=== PATIENT | female | born 2000 | race Caucasian/White ===

== ENCOUNTER 2022-05-26 15:51 | Emergency (ER) | payer MEDICAID, SELFPAY ==
[2022-05-26] VITALS (19 sets, daily range): BP systolic 111–115; BP diastolic 74–83; PULSE 78–101; RESP 18; TEMP 36.5; O2SAT 95–100; BMI 29.5
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
--- NOTE | 2022-05-26 16:08 | CRLHL7_ITS ---
For Patients: As a result of the Century Cures Act, medical imaging exams and procedure reports are released immediately into your electronic medical record. You may view this report before your referring provider. If you have questions, please contact your health care provider. INDICATION: Difficulty breathing. TECHNIQUE: Chest 1 view. COMPARISON: None. FINDINGS: Cardiovascular and mediastinum: Heart size and vasculature are normal in caliber and appearance. Lungs and pleural spaces: Lungs are clear. No sign of infiltrate or mass. No sign of pleural effusion. No pneumothorax. Bones and soft tissues: Thoracic spine fusion hardware. IMPRESSION: No acute cardiopulmonary abnormality. Dictated by Dick Salmon MD @ 05/26/2022 6:03:48 PM (Electronically Signed)
[2022-05-26] MEDS: EPINEPHrine 0.3 MG PEN IM (16:17)
[2022-05-26] MEDS: dexAMETHasone 4 MG/ML VIAL 8 MG IV (16:36)
[2022-05-26] MEDS: 0.9 % SODIUM CHLORIDE 1000 ml 1,000 ML IV (16:36)
[2022-05-26] MEDS: diphenhydrAMINE 50 MG/ML inj 25 MG IVP (16:39)
[2022-05-26 17:05] LABS: Basophils Absolute Auto 0.05 K/uL (0.00-0.30); Basophils Percent Auto 0.5 % (0.0-3.0); Eosinophils Absolute Auto 0.29 K/uL (0.00-0.50); Eosinophils Percent Auto 2.9 % (0.0-7.0); Hematocrit 45.6 % (33.0-51.0); Hemoglobin* 15.2 gm/dL (12.0-16.0); Immature Granulocytes Abs Auto 0.01 K/uL (0.00-0.30); Lymphocytes Percent Auto 44.5 % (20-44); Mean Corpuscular HGB Conc 33 gm/dL (32-36); Mean Corpuscular Hemoglobin 30 pg (26-34); Mean Corpuscular Volume 91 fL (80-100); Monocytes Percent Auto 7.2 % (0.0-11.0); Neutrophils Absolute Auto 4.51 K/uL (1.7-7.0); Neutrophils Percent Auto 44.8 % (42.0-72.0); Platelet Count* 322 K/uL (140-440); White Blood Count* 10.07 K/uL (4.50-11.00)
[2022-05-26 17:18] LABS: Slide Review Reflex No
[2022-05-26 17:31] LABS: Albumin* 4.6 g/dL (3.3-5.0); Chloride* 104 mmol/L (96-114)
[2022-05-26 17:32] LABS: Sodium* 138 mmol/L (135-149)
[2022-05-26 17:34] LABS: Amylase* 87 U/L (18-89); Creatinine* 0.6 mg/dL (0.5-1.5); Estimated Glomerular Filt Rate 129 ml/min
[2022-05-26 17:35] LABS: Alanine Aminotransferase* 13 U/L (4-35); Alkaline Phosphatase* 99 U/L (40-150); Aspartate Amino Transferase* 23 U/L (12-35); Bilirubin Total* 0.6 mg/dL (0.1-1.5); Blood Urea Nitrogen* 9 mg/dL (5-24); Calcium* 9.5 mg/dL (8.4-10.6); Carbon Dioxide* 22 mmol/L (20-32); Glucose* 103 mg/dL (60-115); Lipase* 72 U/L (23-300); Total Protein* 7.8 g/dL (6.0-8.3)
[2022-05-26 17:38] LABS: C Reactive Protein* 1.1 mg/dL (0.5-1.0)
[2022-05-26 18:08] LABS: SARS PCR* Negative SARS-CoV-2 (Negative)
[2022-05-26 18:14] LABS: Appearance Urine Clear (Clear); Bilirubin Urine Negative (Negative); Blood Urine Negative (Negative); Color Urine Yellow (Yellow); Glucose Urine Negative (Negative); Ketones Urine Negative (Negative); Leukocyte Esterase Urine Trace (Negative); Nitrite Urine Negative (Negative); Protein Urine Negative (Negative); Specific Gravity Urine <= 1.005 (1.000-1.030); Urobilinogen Urine 0.2 (0.2-1.0)
[2022-05-26] MEDS: LORazepam 2 MG/ML inj 0.5 MG IVP (18:15)
[2022-05-26 18:26] LABS: RBC Urine 0-2 (0-2); Ur HCG Qualitative* Negative (Negative)
[2022-05-26] MEDS: POTASSIUM BICARB 25 MEQ EFFERVESCENT TAB 50 MEQ PO (20:44)
== END 2022-05-26 20:51 | disposition home or self-care (01) ==
PROVIDERS: Emergency Provider Family Medicine; PCP Student in an Organized Health Care Education/Training Program
DX: F41.9 Anxiety disorder, unspecified (principal); E87.6 Hypokalemia; T78.49XA Other allergy, initial encounter
CPT/HCPCS: 36415; 71045; 80053; 81003; 81015; 81025; 82150; 83690; 85025; 86140; 87635; 96372; 96374; 96375; 99285; 99291; A9270; J0171; J1100; J1200; J2060; J7030

== ENCOUNTER 2022-10-31 01:48 | Emergency (ER) | payer OTHER, SELFPAY ==
[2022-10-31 01:51] VITALS: BP 130/82; PULSE 88; RESP 20; TEMP 36.6; O2SAT 98; BMI 28.9
--- NOTE | 2022-10-31 01:59 | CRLHL7_ITS ---
For Patients: As a result of the Century Cures Act, medical imaging exams and procedure reports are released immediately into your electronic medical record. You may view this report before your referring provider. If you have questions, please contact your health care provider. INDICATION: Head injury TECHNIQUE: CT head without contrast. COMPARISON: None FINDINGS: CSF spaces: Within normal limits for age. Brain parenchyma: The velásquez-white differentiation is normal. No sign of mass, hemorrhage, or midline shift. Skull base and calvarium: The visualized paranasal sinuses and mastoid air cells demonstrate no acute or significant findings. The visualized orbits are grossly unremarkable. No skull fractures. IMPRESSION: Unremarkable noncontrast head CT. Please note that all CT scans at this facility use dose modulation, iterative reconstruction, and/or weight-based dosing when appropriate to reduce radiation dose to as low as reasonably achievable. Dictated by Nazia Ya MD @ 10/31/2022 3:48:17 AM (Electronically Signed)
--- NOTE | 2022-10-31 02:00 | CRLHL7_ITS ---
For Patients: As a result of the Century Cures Act, medical imaging exams and procedure reports are released immediately into your electronic medical record. You may view this report before your referring provider. If you have questions, please contact your health care provider. INDICATION: Head trauma TECHNIQUE: CT cervical spine without contrast. COMPARISON: None FINDINGS: Vertebral alignment: Alignment is normal. Vertebrae: There are no fractures or suspicious bony lesions. Partially visualized thoracic spine internal fixation hardware. Discs and facet joints: Unremarkable. Extraspinal findings: Paraspinous soft tissues are unremarkable. IMPRESSION: No acute fracture or subluxation. Please note that all CT scans at this facility use dose modulation, iterative reconstruction, and/or weight-based dosing when appropriate to reduce radiation dose to as low as reasonably achievable. Dictated by Nazia Ya MD @ 10/31/2022 3:50:26 AM (Electronically Signed)
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
[2022-10-31 02:24] VITALS: PULSE 76; RESP 18; O2SAT 96
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
[2022-10-31 03:06] VITALS: BP 129/72; PULSE 96; RESP 18; O2SAT 96
== END 2022-10-31 04:00 | disposition home or self-care (01) ==
PROVIDERS: Emergency Provider Internal Medicine; PCP Student in an Organized Health Care Education/Training Program
DX: S09.90XA Unspecified injury of head, initial encounter (principal); W20.8XXA Other cause of strike by thrown, projected or falling object, initial encounter; Y99.0 Civilian activity done for income or pay
CPT/HCPCS: 70450; 72125; 99283; 99284

== ENCOUNTER 2022-12-13 13:39 | Emergency (ER) | payer OTHER, MEDICAID, SELFPAY ==
[2022-12-13 13:44] VITALS: BP 117/73; PULSE 86; RESP 15; TEMP 36.7; O2SAT 99; BMI 26.6
--- NOTE | 2022-12-13 14:42 | CRLHL7_ITS ---
For Patients: As a result of the Century Cures Act, medical imaging exams and procedure reports are released immediately into your electronic medical record. You may view this report before your referring provider. If you have questions, please contact your health care provider. Indication: Post concussive symptoms Technique: Volumetric multidetector CT images of the head were obtained without the administration of low osmolar intravenous contrast. Comparison: CT head October 31, 2022 Findings: There is no intra-axial or extra-axial fluid collection. There is no mass effect or midline shift. The ventricles and sulci are normal in size and position for age. The brain parenchyma is grossly preserved in attenuation and leong-white differentiation. The orbits and their contents are grossly within normal limits. The bony calvarium is grossly intact. The paranasal sinuses are clear. The mastoid air cells are well aerated. Impression: No acute intracranial abnormality. Please note that all CT scans at this facility use dose modulation, iterative reconstruction, and/or weight-based dosing when appropriate to reduce radiation dose to as low as reasonably achievable. Dictated by James Denney MD @ 12/13/2022 3:57:55 PM (Electronically Signed)
--- NOTE | 2022-12-13 14:44 | ED.HEATRA ---
HPI - Head Injury General Chief complaint: Unspecified Complaint, Adult Stated complaint: Shaking Weakness Post Concussion 10/30 Time Seen by Provider: 12/13/22 14:34 History of Present Illness HPI Narrative: Patient is a 22-year-old woman who I saw 6 weeks ago after she had her head on a strobe light at work. CT of the head was unremarkable and so scanner neck and chest x-ray all were negative. I offered reassurance for likely concussion although the patient did not appear to lose consciousness. I did recommend outpatient follow-up. Patient was given standard instructions following her assessment. Patient since that time has been having difficulty concentrating, difficulty focusing with her eyes and mild chronic headache. Patient has been taking Tylenol Motrin as needed. Primary care follow-up as been attended. She does have a neurology appointment 16 days. Patient is concerned that her symptoms seem to be worsening and is in for repeat evaluation. Pain is mild no neck her chest pain. No seizure activity. No fevers no chills no nausea no vomiting. No other focal neurologic complaints. Related Data Home Medications Medication Instructions Recorded Confirmed albuterol sulfate .ROUTE 05/26/22 clonazepam 0.5 mg tablet mg 05/26/22 levothyroxine 50 mcg tablet mcg 05/26/22 lithium carbonate 300 mg capsule mg 05/26/22 sumatriptan succinate 100 mg tablet mg PO 05/26/22 Allergies Allergy/AdvReac Type Severity Reaction Status Date / Time No Known Drug Allergies Allergy Verified 05/26/22 15:59 Review of Systems Status of ROS: Reports: 10 or more systems reviewed and unremarkable except as noted in History and below [facility] Medical History (Updated 12/13/22 @ 16:02 by Clinton Hi MD) Head injury ?S09.90XA - Unspecified injury of head, initial encounter (ICD-10) Social History Smoking Status: Current every day smoker Do you use any of these nicotine containing products: None and Vaping Products Second hand tobacco smoke exposure: No How often do you have a drink containing alcohol: 2-4 times a month AUDIT-C Alcohol total score: 2 Non-prescribed substance use: denies use service: No Exam Narrative: Exam Narrative: EXAM GENERAL: Patient appears comfortable and well. EYES: No scleral icterus. ENT: Tympanic membranes and oropharynx normal. THYROID: no thyroid nodules or thyromegaly. LYMPH: No supraclavicular or cervical lymphadenopathy. SKIN: Visible skin seen during exam normal or with benign process only. EXT: No dependent lower extremity pedal edema. HEART: Regular rate and rhythm with no murmurs, rubs, or gallops. LUNGS: Clear to auscultation bilaterally with no crackles or wheezes. ABD: Soft, non tender, non distended. PSYCH: Good eye contact, speech is not pressured. Neurologic cranial nerves 2-12 grossly intact no focal defects. Const: Vital Signs, click to edit/add: Vital Signs - 24 hr 12/13/22 13:44 Temperature 98.1 F Pulse Rate [Pulse Oximeter] 86 Respiratory Rate 15 Blood Pressure [Ri ght Upper Arm] 117/73 Pulse Oximetry 99 Oxygen Delivery Me thod Room Air Course Course Hospital Course: Patient seen examined. CT of the head ordered. CBC basic metabolic panel TSH also ordered. Vital Signs Vital signs: Initial Vital Signs Temperature 98.1 F 12/13/22 13:44 Temperature Source Temporal Artery Scan 12/13/22 13:44 Pulse Rate 86 12/13/22 13:44 Respiratory Rate 15 12/13/22 13:44 Blood Pressure 117/73 12/13/22 13:44 Blood Pressure Mean 87 12/13/22 13:44 Pulse Oximetry 99 12/13/22 13:44 Oxygen Delivery Method Room Air 12/13/22 13:44 Vital Signs Temperature 98.1 F 12/13/22 13:44 Pulse Rate 86 12/13/22 13:44 Respiratory Rate 15 12/13/22 13:44 Blood Pressure 117/73 12/13/22 13:44 Pulse Oximetry 99 12/13/22 13:44 Oxygen Delivery Method Room Air 12/13/22 13:44 Temperature 98.1 F 12/13/22 13:44 Pulse Rate 86 12/13/22 13:44 Respiratory Rate 15 12/13/22 13:44 Blood Pressure 117/73 12/13/22 13:44 Pulse Oximetry 99 12/13/22 13:44 Oxygen Delivery Method Room Air 12/13/22 13:44 MDM - Head Injury MDM Narrative Medical decision making narrative: Patient is a 22-year-old woman who presents approximately 6 weeks after head injury consistent with concussion. She is having continued difficulties with post concussive type symptoms. Her exam today is normal on my assessment her vital signs are stable. I did order repeat CT scan which was normal. CBC basic metabolic panel unremarkable TSH is pending. She does have outpatient follow-up with Neurology which I encouraged her to keep. She would likely benefit after seeing Neurology from an MRI as well. Otherwise reassurance offered patient will follow-up with her primary physician and neurologist as scheduled. Differential Diagnosis Differential diagnosis: Likely concussion without loss of consciousness, epidural hematoma, closed head injury, subarachnoid hematoma, postconcussion syndrome, subdural hematoma and concussion with loss of consciousness Lab Data Labs: Lab Results 12/13/22 Range/Units 14:56 WBC 9.99 (4.50-11.00) K/uL RBC 4.89 (4.00-5.20) m/uL Hgb 14.8 (12.0-16.0) gm/dL Hct 45.6 (33.0-51.0) % MCV 93 (80-100) fL MCH 30 (26-34) pg MCHC 33 (32-36) gm/dL RDW Coeff of Al 12.6 (11.5-15.5) % Plt Count 319 (140-440) K/uL Neut % (Auto) 48.1 (42.0-72.0) % Lymph % (Auto) 38.2 (20-44) % Stokes % (Auto) 8.1 (0.0-11.0) % Eos % (Auto) 4.1 (0.0-7.0) % Baso % (Auto) 0.6 (0.0-3.0) % Neut # (Auto) 4.80 (1.7-7.0) K/uL Lymph # (Auto) 3.82 H (0.90-2.90) K/uL Stokes # (Auto) 0.80 (0.00-0.90) K/UL Eos # (Auto) 0.41 (0.00-0.50) K/uL Baso # (Auto) 0.06 (0.00-0.30) K/uL Sodium 138 (135-149) mmol/L Potassium 3.9 (3.6-5.1) mmol/L Chloride 106 (96-114) mmol/L Carbon Dioxide 23 (20-32) mmol/L BUN 11 (5-24) mg/dL Creatinine 0.6 (0.5-1.5) mg/dL Estimated Creat Clear 152.40 Estimated GFR 129 ml/min Glucose 82 (60-115) mg/dL Calcium 9.1 (8.4-10.6) mg/dL Discharge Plan Discharge Clinical Impression: Post concussion syndrome Patient Disposition: Home, Self-Care Condition: Stable Instructions: Post Concussion Syndrome (ED) Additional Instructions: Continue current management. Report any change in symptoms. Follow-up with neurology as scheduled Activity Level: No Restrictions Discharge Diet: Regular Prescriptions: No Action albuterol sulfate .ROUTE sumatriptan succinate 100 mg tablet PO clonazepam 0.5 mg tablet lithium carbonate 300 mg capsule Patient Comments: TAKE 1 CAPSULE BY MOUTH AT BEDTIME FOR 3 DAYS. THEN INCREASE TO 2 CAPSULES BY MOUTH AT BEDTIME levothyroxine 50 mcg tablet Follow Up/Referrals: Vane Black PA-C [Primary Care Provider] - Stand Alone Forms: Errplane Info Instructions
[2022-12-13 15:21] LABS: Basophils Absolute Auto 0.06 K/uL (0.00-0.30); Basophils Percent Auto 0.6 % (0.0-3.0); Eosinophils Absolute Auto 0.41 K/uL (0.00-0.50); Eosinophils Percent Auto 4.1 % (0.0-7.0); Hematocrit 45.6 % (33.0-51.0); Hemoglobin* 14.8 gm/dL (12.0-16.0); Immature Granulocytes Abs Auto 0.09 K/uL (0.00-0.30); Immature Granulocytes Pct Auto 0.9 %; Lymphocytes Absolute Auto 3.82 K/uL (0.90-2.90); Lymphocytes Percent Auto 38.2 % (20-44); Mean Corpuscular HGB Conc 33 gm/dL (32-36); Mean Corpuscular Hemoglobin 30 pg (26-34); Mean Corpuscular Volume 93 fL (80-100); Monocytes Percent Auto 8.1 % (0.0-11.0); Neutrophils Percent Auto 48.1 % (42.0-72.0); Platelet Count* 319 K/uL (140-440); RDW Coefficient of Variation % 12.6 % (11.5-15.5); Red Blood Count 4.89 m/uL (4.00-5.20); White Blood Count* 9.99 K/uL (4.50-11.00)
[2022-12-13 15:24] LABS: Slide Review Reflex No
[2022-12-13 15:49] LABS: Chloride* 106 mmol/L (96-114); Potassium* 3.9 mmol/L (3.6-5.1); Sodium* 138 mmol/L (135-149)
[2022-12-13 15:52] LABS: Blood Urea Nitrogen* 11 mg/dL (5-24); Calcium* 9.1 mg/dL (8.4-10.6); Carbon Dioxide* 23 mmol/L (20-32); Creatinine* 0.6 mg/dL (0.5-1.5); Estimated Glomerular Filt Rate 129 ml/min; Glucose* 82 mg/dL (60-115)
== END 2022-12-13 16:10 | disposition home or self-care (01) ==
PROVIDERS: Emergency Provider Internal Medicine; PCP Student in an Organized Health Care Education/Training Program
DX: R51.9 Headache, unspecified (principal); F07.81 Postconcussional syndrome
CPT/HCPCS: 36415; 70450; 80048; 84443; 85025; 99283; 99284

== ENCOUNTER 2022-12-18 11:22 | Emergency (ER) | payer MEDICAID, SELFPAY ==
[2022-12-18] VITALS (17 sets, daily range): BP systolic 92–127; BP diastolic 62–91; PULSE 65–94; RESP 20; TEMP 36.6; O2SAT 96–100; BMI 30.4
--- NOTE | 2022-12-18 12:00 | CRLHL7_ITS ---
For Patients: As a result of the Century Cures Act, medical imaging exams and procedure reports are released immediately into your electronic medical record. You may view this report before your referring provider. If you have questions, please contact your health care provider. INDICATION: Left lower quadrant pain, evaluate for ectopic. LMP unknown. Beta hCG is reportedly negative. COMPARISON: None. TECHNIQUE: 2D velásquez scale and color Doppler images were acquired of the pelvis using a transvaginal approach. FINDINGS: Sonographic images demonstrate a normal size and smooth outer contour of the uterus. The uterus is anteverted in position. The uterus measures 6.2 cm in length by 3.5 cm in AP diameter by 5.2 cm in transverse dimension. The myometrium has uniform echotexture. The endometrial lining measures 5 mm in composite thickness. IUD appears appropriately positioned. No intrauterine gestational sac identified. The right ovary measures 4.3 x 2.2 x 3.3 cm and the left ovary measures 4.1 x 1.9 x 2.8 cm. Blood flow is seen within both ovaries. There is a 1.9 x 1.8 x 2.1 cm thick-walled cyst in the right ovary which likely represents a corpus luteum. There are ill-defined vascular soft tissue structures in both adnexa measuring 2.6 x 0.8 x 1.0 cm on the right and 2.4 x 0.9 x 1.2 cm on the left. Trace free fluid in the cul-de-sac. IMPRESSION: 1. IUD appears appropriately positioned. No intrauterine gestational sac identified. 2. Probable corpus luteum in the right ovary. 3. Ill-defined vascular soft tissue structures in both adnexa likely related to normal adnexal/periuterine vascularity. Ectopic considered unlikely given negative beta HCG. Dictated by Jonna Fontenot MD @ 12/18/2022 1:57:17 PM (Electronically Signed)
[2022-12-18] MEDS: fentaNYL 100 MCG/2 ML inj 50 MCG IVP (12:28)
[2022-12-18] MEDS: 0.9 % SODIUM CHLORIDE 1000 ml 1,000 ML IV (12:28)
[2022-12-18] MEDS: ONDANSETRON 2 MG/ML inj 4 MG IVP (12:28)
[2022-12-18 12:38] LABS: Basophils Absolute Auto 0.03 K/uL (0.00-0.30); Basophils Percent Auto 0.3 % (0.0-3.0); Eosinophils Absolute Auto 0.37 K/uL (0.00-0.50); Eosinophils Percent Auto 4.1 % (0.0-7.0); Hemoglobin* 14.9 gm/dL (12.0-16.0); Immature Granulocytes Abs Auto 0.01 K/uL (0.00-0.30); Immature Granulocytes Pct Auto 0.1 %; Lymphocytes Absolute Auto 3.03 K/uL (0.90-2.90); Lymphocytes Percent Auto 33.7 % (20-44); Mean Corpuscular HGB Conc 33 gm/dL (32-36); Mean Corpuscular Hemoglobin 31 pg (26-34); Mean Corpuscular Volume 92 fL (80-100); Monocytes Percent Auto 8.7 % (0.0-11.0); Neutrophils Absolute Auto 4.76 K/uL (1.7-7.0); Neutrophils Percent Auto 53.1 % (42.0-72.0); Platelet Count* 295 K/uL (140-440); RDW Coefficient of Variation % 12.5 % (11.5-15.5); Red Blood Count 4.89 m/uL (4.00-5.20); White Blood Count* 8.98 K/uL (4.50-11.00)
[2022-12-18 12:40] LABS: Slide Review Reflex No
[2022-12-18 12:48] LABS: Appearance Urine Slightly Cloudy (Clear); Bilirubin Urine Negative (Negative); Blood Urine Trace-intact (Negative); Color Urine Yellow (Yellow); Glucose Urine Negative (Negative); Ketones Urine Negative (Negative); Leukocyte Esterase Urine Trace (Negative); Nitrite Urine Negative (Negative); Protein Urine Negative (Negative); Specific Gravity Urine 1.015 (1.000-1.030); Urobilinogen Urine 0.2 (0.2-1.0); pH Urine 7.5 (5.0-8.5)
--- NOTE | 2022-12-18 12:50 | ED.ABDPAIN ---
HPI - Abdominal Pain General Chief Complaint: Abdominal Pain Stated Complaint: Possible ectopic Time Seen by Provider: 12/18/22 11:45 History of Present Illness HPI narrative: gr 1 p 0 with concerns of spotting and lower abd cramping and pain. cramps for the last week. spotting started a week ago. had 2 positive tests at home. has an iud and took antibiotics on 11/27/22. believes she may have an ectopic . had awakened with nausea and left sided shoulder pain. called [facility] and was told to come here 22-year-old young woman here with concern of potential ectopic . She is with to lightly positive home tests this last week. She probably has some pain beginning maybe 10 days ago. Underlying history of migraines. Has tried some Zofran for nausea. Has an IUD and notes that the strings were cut too short. She has some lower abdominal cramping in escalating pain with these cramps over the last week or so. Spotting during this time as well. Started to have some left-sided shoulder pain and called to try to be seen by an Ob but with the complaint of left-sided shoulder pain in addition to all of the above, recommended to the emergency department for further evaluation with concern of ectopic . Did take antibiotics a couple of weeks ago apparently for wisdom teeth. Sounds like amoxicillin. Still pending extraction. Related Data Home Medications Medication Instructions Recorded Confirmed albuterol sulfate .ROUTE 05/26/22 clonazepam 0.5 mg tablet mg 05/26/22 levothyroxine 50 mcg tablet mcg 05/26/22 lithium carbonate 300 mg capsule mg 05/26/22 sumatriptan succinate 100 mg tablet mg PO 05/26/22 Previous Rx's Medication Instructions Recorded cephalexin 500 mg capsule 500 mg PO TID 6 days #18 caps 12/18/22 fluconazole 150 mg tablet 150 mg PO DAILY #1 tab 12/18/22 Allergies Allergy/AdvReac Type Severity Reaction Status Date / Time No Known Drug Allergies Allergy Verified 05/26/22 15:59 Review of Systems Status of ROS Reports: 6 or more systems reviewed and unremarkable except as noted in History and below [facility] Medical History Head injury ?S09.90XA - Unspecified injury of head, initial encounter (ICD-10) Social History Smoking Status: Current every day smoker Do you use any of these nicotine containing products: None and Vaping Products Second hand tobacco smoke exposure: No How often do you have a drink containing alcohol: 2-4 times a month AUDIT-C Alcohol total score: 2 Non-prescribed substance use: denies use service: No Exam Narrative: Exam Narrative: Pleasant. Brow furrowed in discomfort and mild anxiety I think. Hair is dyed darker red? Breathing easily. Lungs are clear. Heart with elevated rate in a regular rhythm. Hand at left low abdomen. Tender in left low abdomen/adnexal area. No peritoneal signs. Extremities are well perfused. Pelvic exam was not done. Reports residual soreness in the left periscapular musculature to palpation. Has some left flank area tenderness to percussion. Const: Vital Signs, click to edit/add: Vital Signs - 24 hr 12/18/22 11:28 12/18/22 11:41 12/18/22 11:45 Temperature 97.9 F Pulse Rate 94 84 Pulse Rate [Pulse Oximeter] 93 Respiratory Rate 20 Blood Pressure Blood Pressure [Le ft Forearm] 127/91 H Pulse Oximetry 97 97 98 Oxygen Delivery Me od Room Air 12/18/22 12:00 12/18/22 12:01 12/18/22 13:05 Temperature Pulse Rate 82 79 67 Pulse Rate [Pulse Oximeter] Respiratory Rate Blood Pressure 121/82 108/70 Blood Pressure [Le ft Forearm] Pulse Oximetry 97 97 96 Oxygen Delivery Me od 12/18/22 13:06 12/18/22 13:15 12/18/22 13:30 Temperature Pulse Rate 67 69 66 Pulse Rate [Pulse Oximeter] Respiratory Rate Blood Pressure Blood Pressure [Le ft Forearm] Pulse Oximetry 96 97 98 Oxygen Delivery Me thod 12/18/22 13:31 12/18/22 13:45 12/18/22 14:00 Temperature Pulse Rate 68 67 69 Pulse Rate [Pulse Oximeter] Respiratory Rate Blood Pressure 105/72 Blood Pressure [Le ft Forearm] Pulse Oximetry 98 99 97 Oxygen Delivery Id thod 12/18/22 14:01 12/18/22 14:15 12/18/22 14:30 Temperature Pulse Rate 71 67 65 Pulse Rate [Pulse Oximeter] Respiratory Rate Blood Pressure 92/62 Blood Pressure [Le ft Forearm] Pulse Oximetry 97 98 100 Oxygen Delivery Me thod 12/18/22 14:32 12/18/22 14:45 Temperature Pulse Rate 68 67 Pulse Rate [Pulse Oximeter] Respiratory Rate Blood Pressure 98/65 Blood Pressure [Le ft Forearm] Pulse Oximetry 100 100 Oxygen Delivery Me thod Documenting provider has reviewed patient's vital signs: yes Course Vital Signs Vital signs: Initial Vital Signs Temperature 97.9 F 12/18/22 11:28 Temperature Source Temporal Artery Scan 12/18/22 11:28 Pulse Rate 93 12/18/22 11:28 Pulse Rhythm Regular 12/18/22 11:28 Respiratory Rate 20 12/18/22 11:28 Blood Pressure 127/91 H 12/18/22 11:28 Blood Pressure Mean 103 12/18/22 11:28 Blood Pressure Position Supine 12/18/22 11:28 Pulse Oximetry 97 12/18/22 11:28 Oxygen Delivery Method Room Air 12/18/22 11:28 Vital Signs Temperature 97.9 F 12/18/22 11:28 Pulse Rate 93 12/18/22 11:28 Respiratory Rate 20 12/18/22 11:28 Blood Pressure 127/91 H 12/18/22 11:28 Pulse Oximetry 97 12/18/22 11:28 Oxygen Delivery Method Room Air 12/18/22 11:28 Temperature 97.9 F 12/18/22 11:28 Pulse Rate 67 12/18/22 14:45 Respiratory Rate 20 12/18/22 11:28 Blood Pressure 98/65 12/18/22 14:32 Pulse Oximetry 100 12/18/22 14:45 Oxygen Delivery Method Room Air 12/18/22 11:28 MDM - Abdominal Pain MDM Narrative Medical decision making narrative: Certainly there could be migrated IUD. Need to evaluate for ectopic . Could be ovarian cyst. Urinary tract infection. Nephrolithiasis with ureteral stone and colic. Diverticulitis in differential as well. Constipation. Later conversation reveals history of recurrent urinary tract infections that have expanded to pyelonephritis per her report. Unclear cause as she describes it. Further that typically needs fluconazole if receives antibiotics. Think we do need to verify 1st but will also collect labs for other possibilities. IV established. For apparent significant pain is given initial dose of fentanyl and Zofran. Normal saline IV fluids. Have ordered for pelvic ultrasound. Discussed with the hearing therapist who noted no evidence of and IUD in proper location. Radiology over-read IMPRESSION: 1. IUD appears appropriately positioned. No intrauterine gestational sac identified. 2. Probable corpus luteum in the right ovary. 3. Ill-defined vascular soft tissue structures in both adnexa likely related to normal adnexal/periuterine vascularity. Ectopic considered unlikely given negative beta HCG. Findings are consistent with laboratory evaluation which is overall reassuring and very low quantitative hCG. Findings though suggest potential urinary tract infection. Again Lary denies dysuria frequency urgency however location of pain is not inconsistent with cystitis. Overall improved in ER. See patient discharge plan. Medical Records Attestation: I reviewed the patient's medical records. Lab Data Attestation: I reviewed the patient's lab results. Labs: Lab Results 12/18/22 Range/Units 12:25 WBC 8.98 (4.50-11.00) K/uL RBC 4.89 (4.00-5.20) m/uL Hgb 14.9 (12.0-16.0) gm/dL Hct 45.0 (33.0-51.0) % MCV 92 (80-100) fL MCH 31 (26-34) pg MCHC 33 (32-36) gm/dL RDW Coeff of Al 12.5 (11.5-15.5) % Plt Count 295 (140-440) K/uL Neut % (Auto) 53.1 (42.0-72.0) % Lymph % (Auto) 33.7 (20-44) % Alger % (Auto) 8.7 (0.0-11.0) % Eos % (Auto) 4.1 (0.0-7.0) % Baso % (Auto) 0.3 (0.0-3.0) % Neut # (Auto) 4.76 (1.7-7.0) K/uL Lymph # (Auto) 3.03 H (0.90-2.90) K/uL [place] # (Auto) 0.80 (0.00-0.90) K/UL Eos # (Auto) 0.37 (0.00-0.50) K/uL Baso # (Auto) 0.03 (0.00-0.30) K/uL Sodium 140 (135-149) mmol/L Potassium 3.7 (3.6-5.1) mmol/L Chloride 107 (96-114) mmol/L Carbon Dioxide 27 (20-32) mmol/L BUN 9 (5-24) mg/dL Creatinine 0.6 (0.5-1.5) mg/dL Estimated Creat Clear 147.10 Estimated GFR 129 ml/min Glucose 82 (60-115) mg/dL Calcium 9.1 (8.4-10.6) mg/dL HCG, Quant < 2.39 mIU/mL Urine Color Yellow (Yellow) Urine Appearance Slightly Cloudy A (Clear) Urine pH 7.5 (5.0-8.5) Ur Specific [place] 1.015 (1.000-1.030) Urine Protein Negative (Negative) Urine Glucose (UA) Negative (Negative) Urine Ketones Negative (Negative) Urine Blood Trace-intact A (Negative) Urine Nitrite Negative (Negative) Urine Bilirubin Negative (Negative) Urine Urobilinogen 0.2 (0.2-1.0) Ur Leukocyte Esterase Trace A (Negative) Urine RBC 2-5 A (0-2) Urine WBC 5-10 A (0-5) Ur Squamous Epith Cells Few (None-Few) Urine Bacteria Few A (None) SARS-CoV-2 (PCR) Negative SARS-CoV-2 (Negative) Discharge Plan Discharge Clinical Impression: Pelvic pain, Vaginal spotting, Cystitis Patient Disposition: Home w/ Parent or Adult Condition: Improved Additional Instructions: Focus on unsugared hydration = water. I would follow-up in the next couple of weeks with OBGYN or your primary care provider to address this spotting if this is continuing. An antibiotic is being sent to your pharmacy along with fluconazole if you need that over the weekend. Urine culture will be pending as well. Return for uncontrolled pain, repeated vomiting, associated fever. Prescriptions: New cephalexin 500 mg capsule 500 mg PO TID 6 Days Qty: 18 0RF fluconazole 150 mg tablet 150 mg PO DAILY Qty: 1 1RF No Action albuterol sulfate .ROUTE sumatriptan succinate 100 mg tablet PO clonazepam 0.5 mg tablet lithium carbonate 300 mg capsule Patient Comments: TAKE 1 CAPSULE BY MOUTH AT BEDTIME FOR 3 DAYS. THEN INCREASE TO 2 CAPSULES BY MOUTH AT BEDTIME levothyroxine 50 mcg tablet Follow Up/Referrals: Vane Black PA-C [Primary Care Provider] - Stand Alone Forms: Mil[employer] Info Instructions
[2022-12-18 12:53] LABS: Chloride* 107 mmol/L (96-114); Potassium* 3.7 mmol/L (3.6-5.1); Sodium* 140 mmol/L (135-149)
[2022-12-18 12:56] LABS: Blood Urea Nitrogen* 9 mg/dL (5-24); Carbon Dioxide* 27 mmol/L (20-32); Creatinine* 0.6 mg/dL (0.5-1.5); Estimated Glomerular Filt Rate 129 ml/min
[2022-12-18 12:57] LABS: Calcium* 9.1 mg/dL (8.4-10.6); Glucose* 82 mg/dL (60-115)
[2022-12-18 13:06] LABS: Bacteria Urine Few; Squamous Epithelial Cell Urine Few (None-Few)
[2022-12-18 13:32] LABS: HCG Quantitative* < 2.39 mIU/mL
[2022-12-18 13:35] LABS: SARS PCR* Negative SARS-CoV-2 (Negative)
== END 2022-12-18 14:59 | disposition home or self-care (01) ==
PROVIDERS: Emergency Provider Family Medicine; PCP Student in an Organized Health Care Education/Training Program
DX: R10.2 Pelvic and perineal pain (principal); N93.9 Abnormal uterine and vaginal bleeding, unspecified; N30.90 Cystitis, unspecified without hematuria
CPT/HCPCS: 36415; 76817; 80048; 81001; 84702; 85025; 87086; 87635; 96374; 96375; 99284; J2405; J3010; J7030

== ENCOUNTER 2023-03-27 19:54 | Emergency (ER) | payer MEDICAID, SELFPAY ==
[2023-03-27 20:14] VITALS: BP 117/83; PULSE 82; RESP 16; TEMP 37.2; O2SAT 96; BMI 29.8
[2023-03-27 21:20] LABS: Appearance Urine Slightly Cloudy (Clear); Bilirubin Urine Negative (Negative); Blood Urine Negative (Negative); Color Urine Yellow (Yellow); Glucose Urine Negative (Negative); Ketones Urine Negative (Negative); Leukocyte Esterase Urine Negative (Negative); Nitrite Urine Negative (Negative); Protein Urine Negative (Negative); Specific Gravity Urine 1.025 (1.000-1.030); Urobilinogen Urine 0.2 (0.2-1.0)
[2023-03-27 21:34] LABS: RBC Urine 0-2 (0-2); WBC Urine 0-2 (0-5)
[2023-03-27 22:08] VITALS: BP 128/91; PULSE 71; RESP 18; O2SAT 95
--- NOTE | 2023-03-27 23:05 | CRLHL7_ITS ---
For Patients: As a result of the Cures Act, medical imaging exams and procedure reports are released immediately into your electronic medical record. You may view this report before your referring provider. If you have questions, please contact your health care provider. INDICATION: Right upper quadrant pain TECHNIQUE: CT abdomen and pelvis acquired with 93 cc Isovue 370 IV contrast. COMPARISON: None FINDINGS: Lower chest: Unremarkable. Liver: Unremarkable. Spleen: Unremarkable. Pancreas: Unremarkable. Gallbladder and bile ducts: Unremarkable. Adrenal glands: Unremarkable. Kidneys: Multifocal scarring on the left kidney. GI tract: Unremarkable. Appendix is normal. Vascular structures: Unremarkable. Lymph nodes: Unremarkable. Miscellaneous: Unremarkable. No free air or significant free fluid. Pelvic Organs: IUD in the uterus. Bones: Internal fixation hardware spanning the T7-L1 levels. IMPRESSION: No acute intra-abdominal process identified. Scarring of the left kidney. IUD in the uterus. Internal fixation hardware in the thoracolumbar spine. Please note that all CT scans at this facility use dose modulation, iterative reconstruction, and/or weight-based dosing when appropriate to reduce radiation dose to as low as reasonably achievable. Dictated by Nazia Ya MD @ 03/28/2023 1:10:51 AM (Electronically Signed)
[2023-03-27 23:18] LABS: Ur HCG Qualitative* Negative (Negative)
[2023-03-27] MEDS: ONDANSETRON 2 MG/ML inj 4 MG IVP (23:20)
[2023-03-27] MEDS: MORPHINE 4 MG/ML INJ IVP (23:20)
[2023-03-27 23:25] LABS: Basophils Absolute Auto 0.05 K/uL (0.00-0.30); Basophils Percent Auto 0.5 % (0.0-3.0); Eosinophils Absolute Auto 0.23 K/uL (0.00-0.50); Eosinophils Percent Auto 2.2 % (0.0-7.0); Hematocrit 46.4 % (33.0-51.0); Hemoglobin* 15.4 gm/dL (12.0-16.0); Immature Granulocytes Abs Auto 0.02 K/uL (0.00-0.30); Immature Granulocytes Pct Auto 0.2 %; Lymphocytes Absolute Auto 4.07 K/uL (0.90-2.90); Lymphocytes Percent Auto 38.7 % (20-44); Mean Corpuscular HGB Conc 33 gm/dL (32-36); Mean Corpuscular Hemoglobin 30 pg (26-34); Mean Corpuscular Volume 90 fL (80-100); Monocytes Percent Auto 9.1 % (0.0-11.0); Neutrophils Absolute Auto 5.19 K/uL (1.7-7.0); Neutrophils Percent Auto 49.3 % (42.0-72.0); Platelet Count* 271 K/uL (140-440); RDW Coefficient of Variation % 12.4 % (11.5-15.5); Red Blood Count 5.14 m/uL (4.00-5.20); White Blood Count* 10.52 K/uL (4.50-11.00)
[2023-03-27 23:26] VITALS: PULSE 56; O2SAT 98
[2023-03-27 23:26] LABS: Slide Review Reflex No
[2023-03-27 23:30] VITALS: PULSE 58; O2SAT 100
[2023-03-27 23:32] VITALS: BP 121/85; PULSE 61; O2SAT 100
[2023-03-27 23:36] LABS: Albumin* 4.2 g/dL (3.3-5.0); Chloride* 105 mmol/L (96-114)
[2023-03-27 23:37] LABS: Potassium* 3.6 mmol/L (3.6-5.1); Sodium* 139 mmol/L (135-149)
[2023-03-27 23:39] LABS: Alkaline Phosphatase* 58 U/L (40-150); Aspartate Amino Transferase* 22 U/L (12-35); Bilirubin Total* 0.4 mg/dL (0.1-1.5); Blood Urea Nitrogen* 11 mg/dL (5-24); Carbon Dioxide* 24 mmol/L (20-32); Creatinine* 0.6 mg/dL (0.5-1.5); Est. Creatinine Clearance* 141.81; Estimated Glomerular Filt Rate 129 ml/min; Glucose* 94 mg/dL (60-115); Lipase* 58 U/L (23-300); Total Protein* 7.4 g/dL (6.0-8.3)
[2023-03-27 23:40] LABS: Alanine Aminotransferase* 17 U/L (4-35)
--- NOTE | 2023-03-27 23:40 | ED.ABDPAIN ---
HPI - Abdominal Pain General Date Seen: 03/27/23 Chief Complaint: Abdominal Pain Stated Complaint: Severe abdominal pain Time Seen by Provider: 03/27/23 22:43 Source: patient Mode of arrival: ambulatory Limitations: no limitations History of Present Illness HPI narrative: Patient is a 22-year-old female with no pertinent ago mother history of present was brought in for abdominal pain patient says the pain started about 4 days ago. She was intermittently but has been gradually getting more consistent now she says with a past 2 or 3 hours it has been nonstop. She has had some nausea but no vomiting. Is mostly upper abdomen worsening right upper quadrant. Says it gets worse whenever she eats. Nothing seems to make it better. Has had subjective fevers but has not checked her temperature. Has not had any vomiting. Denies dysuria, constipation, diarrhea, chest pain, shortness of breath, headache, lightheadedness, dizziness. Denies ever having pain like this before. Has not had any previous abdominal surgeries. States she has never been . Denies vaginal discharge, vaginal bleeding, dysuria. No history of gallbladder disease in her family other than her grandmother but she is not sure what her grandmother had. Related Data Home Medications Medication Instructions Recorded Confirmed albuterol sulfate .ROUTE 05/26/22 clonazepam 0.5 mg tablet mg 05/26/22 levothyroxine 50 mcg tablet mcg 05/26/22 lithium carbonate 300 mg capsule mg 05/26/22 sumatriptan succinate 100 mg tablet mg PO 05/26/22 Previous Rx's Medication Instructions Recorded cephalexin 500 mg capsule 500 mg PO TID 6 days #18 caps 12/18/22 fluconazole 150 mg tablet 150 mg PO DAILY #1 tab 12/18/22 Allergies Allergy/AdvReac Type Severity Reaction Status Date / Time No Known Drug Allergies Allergy Verified 05/26/22 15:59 Review of Systems Status of ROS Reports: 10 or more systems reviewed and unremarkable except as noted in History and below [facility] Medical History Head injury ?S09.90XA - Unspecified injury of head, initial encounter (ICD-10) Social History Smoking Status: Current every day smoker Do you use any of these nicotine containing products: Vaping Products Second hand tobacco smoke exposure: No How often do you have a drink containing alcohol: 2-4 times a month AUDIT-C Alcohol total score: 2 Non-prescribed substance use: denies use service: No Exam Narrative: Exam Narrative: Const: Well-nourished, Well-developed, in mild distress Eyes: PERRL, no conjunctival injection, and symmetrical lids ENMT: Atraumatic external nose and ears. Moist mucous membranes. Neck: Symmetric, trachea midline, No thyromegaly. CVS: RRR, No murmurs or gallops. Peripheral pulses 2+ and equal in all extremities RESP: Unlabored respiratory effort. Clear to auscultation bilaterally. GI: Right upper quadrant and epigastric tenderness. Nondistended, No rebound or guarding. MSK:Extremities w/o deformity, Normal Active ROM Skin: Warm, Dry. No rashes or lesions. Neuro: Normal Muscle tone, No focal neurological deficits. Psych: Awake, Alert, & Oriented x3. Appropriate mood and affect. Const: Vital Signs, click to edit/add: Vital Signs - 24 hr 03/27/23 20:14 03/27/23 22:08 Temperature 99 F Pulse Rate [Left P ulse Oximeter] 82 71 Respiratory Rate 16 18 Blood Pressure [Ri ght Upper Arm] 117/83 128/91 H Pulse Oximetry 96 95 Oxygen Delivery Me thod Room Air Room Air Course Vital Signs Vital signs: Initial Vital Signs Temperature 99 F 03/27/23 20:14 Temperature Source Oral 03/27/23 20:14 Pulse Rate 82 03/27/23 20:14 Respiratory Rate 16 03/27/23 20:14 Blood Pressure 117/83 03/27/23 20:14 Blood Pressure Mean 94 03/27/23 20:14 Blood Pressure Position Sitting 03/27/23 20:14 Pulse Oximetry 96 03/27/23 20:14 Oxygen Delivery Method Room Air 03/27/23 20:14 Vital Signs Temperature 99 F 03/27/23 20:14 Pulse Rate 82 03/27/23 20:14 Respiratory Rate 16 03/27/23 20:14 Blood Pressure 117/83 03/27/23 20:14 Pulse Oximetry 96 03/27/23 20:14 Oxygen Delivery Method Room Air 03/27/23 20:14 Temperature 99 F 03/27/23 20:14 Pulse Rate 62 03/28/23 01:15 Respiratory Rate 18 03/27/23 22:08 Blood Pressure 120/91 H 03/28/23 01:01 Pulse Oximetry 98 03/28/23 01:15 Oxygen Delivery Method Room Air 03/28/23 00:32 MDM - Abdominal Pain MDM Narrative Medical decision making narrative: Patient is a 22-year-old female presenting to emergency department for 4 days abdominal pain. Pain is in epigastric and right upper quadrant region. She says it is worse after she eats. Nothing seems to make it better. She states has been gradually getting worse. No history of abdominal surgeries before. She is tender to the epigastric and right upper quadrant region with but she states this worsening right upper quadrant. At this point I am concerned for gallbladder issues. CBC, CMP, lipase, urinalysis, urine test were all ordered. Also do CT scan of the abdomen to better evaluate the cause of her pain. Patient was given morphine for pain and Zofran for nausea. Patient's lab work returned showing no concerning abnormalities. Lipase is within normal limits. No signs of UTI. LFTs are all normal. White blood cell count was within normal limits. Patient was offered Toradol for pain but says she can not take it due to lithium. Tylenol was given for pain. CT results returned showing no acute intra-abdominal abnormalities. Is unclear what is causing her pain right now. Patient has had normal vitals in will state she has not appear to be in much pain on exam. I will give her a few oxycodone for pain control. I offered the patient Zofran but she states she already has some at home. Patient be discharged home. She is agreeable to this plan. Lab Data Labs: Lab Results 03/27/23 03/27/23 03/27/23 Range/Units 20:30 21:30 23:10 WBC 10.52 (4.50-11.00) K/uL RBC 5.14 (4.00-5.20) m/uL Hgb 15.4 (12.0-16.0) gm/dL Hct 46.4 (33.0-51.0) % MCV 90 (80-100) fL MCH 30 (26-34) pg MCHC 33 (32-36) gm/dL RDW Coeff of Al 12.4 (11.5-15.5) % Plt Count 271 (140-440) K/uL Neut % (Auto) 49.3 (42.0-72.0) % Lymph % (Auto) 38.7 (20-44) % Arthur % (Auto) 9.1 (0.0-11.0) % Eos % (Auto) 2.2 (0.0-7.0) % Baso % (Auto) 0.5 (0.0-3.0) % Neut # (Auto) 5.19 (1.7-7.0) K/uL Lymph # (Auto) 4.07 H (0.90-2.90) K/uL Arthur # (Auto) 1.00 H (0.00-0.90) K/UL Eos # (Auto) 0.23 (0.00-0.50) K/uL Baso # (Auto) 0.05 (0.00-0.30) K/uL Abs Immat Gran (auto) 0.02 (0.00-0.30) K/uL Imm/Tot Granulo (auto) 0.2 % Sodium 139 (135-149) mmol/L Potassium 3.6 (3.6-5.1) mmol/L Chloride 105 (96-114) mmol/L Carbon Dioxide 24 (20-32) mmol/L BUN 11 (5-24) mg/dL Creatinine 0.6 (0.5-1.5) mg/dL Estimated Creat Clear 141.81 Estimated GFR 129 ml/min Glucose 94 (60-115) mg/dL Calcium 9.0 (8.4-10.6) mg/dL Total Bilirubin 0.4 (0.1-1.5) mg/dL AST 22 (12-35) U/L ALT 17 (4-35) U/L Alkaline Phosphatase 58 (40-150) U/L Total Protein 7.4 (6.0-8.3) g/dL Albumin 4.2 (3.3-5.0) g/dL Lipase 58 (23-300) U/L Urine Color Yellow (Yellow) Urine Appearance Slightly Cloudy A (Clear) Urine pH 7.0 (5.0-8.5) Ur Specific [place] 1.025 (1.000-1.030) Urine Protein Negative (Negative) Urine Glucose (UA) Negative (Negative) Urine Ketones Negative (Negative) Urine Blood Negative (Negative) Urine Nitrite Negative (Negative) Urine Bilirubin Negative (Negative) Urine Urobilinogen 0.2 (0.2-1.0) Ur Leukocyte Esterase Negative (Negative) Urine RBC 0-2 (0-2) Urine WBC 0-2 (0-5) Ur Squamous Epith Cells None (None-Few) Urine Bacteria None (None) Urine HCG, Qual Negative (Negative) Lab Acknowledgement Test Added Discharge Plan Discharge Additional Instructions: Lab work was normal. CT results showed no concerning findings. Unclear what is causing your pain. Take tylenol first for pain. See your PCP. Prescriptions: No Action albuterol sulfate .ROUTE sumatriptan succinate 100 mg tablet PO clonazepam 0.5 mg tablet lithium carbonate 300 mg capsule Patient Comments: TAKE 1 CAPSULE BY MOUTH AT BEDTIME FOR 3 DAYS. THEN INCREASE TO 2 CAPSULES BY MOUTH AT BEDTIME levothyroxine 50 mcg tablet cephalexin 500 mg capsule 500 mg PO TID 6 Days Qty: 18 0RF fluconazole 150 mg tablet 150 mg PO DAILY Qty: 1 1RF Follow Up/Referrals: Vane Black PA-C [Primary Care Provider] -
[2023-03-27 23:45] VITALS: PULSE 60; O2SAT 100
[2023-03-28] VITALS (10 sets, daily range): BP systolic 116–122; BP diastolic 81–91; PULSE 54–67; O2SAT 94–100
[2023-03-28] MEDS: ACETAMINOPHEN 500 MG TABLET 1000 MG PO (00:58)
== END 2023-03-28 01:32 | disposition home or self-care (01) ==
LOC: ED 03-28 00:32
PROVIDERS: Emergency Provider Student in an Organized Health Care Education/Training Program; PCP Student in an Organized Health Care Education/Training Program
DX: R10.11 Right upper quadrant pain (principal)
CPT/HCPCS: 36415; 74177; 80053; 81001; 81025; 83690; 85025; 96374; 96375; 99283; 99284; A9270; J2270; J2405; Q9967

== ENCOUNTER 2023-08-10 23:05 | Emergency (ER) | payer OTHER, MEDICAID, SELFPAY ==
[2023-08-10 23:24] VITALS: BP 126/72; PULSE 78; RESP 16; TEMP 36.6; O2SAT 97; BMI 36.0
--- NOTE | 2023-08-11 00:37 | ED_ITS ---
HPI - General Adult General Chief complaint: Headache/Migraine Stated complaint: Headache Time Seen by Provider: 08/11/23 00:20 History of Present Illness HPI narrative: 23-year-old female with history of post concussive syndrome presents to the emergency department for evaluation of headache for the past 11 hours. Present upon awakening. Lateral top of the head. Does have a history of tension headaches and is prescribed tizanidine nightly. It sounds as though she has had evaluation from Neurology or at least multiple primary care evaluations for these post concussive headaches. Reports that she has felt more fatigued than usual and feels a little confused. There are no focal neurological changes. No speech difficulty, no movement deficits, no sensory deficits. She is tempted to take Aleve and Nurtec which is her prescribed migraine medication with no significant improvement in symptoms. No head injury or trauma in the last few days. No symptoms of acute illness like fever, neck stiffness, myalgias. No nausea or vomiting. No visual changes associated with this headache but does report some ongoing issues with getting her eyes to focus as result the previous concussion. She has had 2 head CTs already this year for evaluation of headache and post concussive symptoms. These were unremarkable. She does not take any anticoagulants. Reports that the headache is worse than her typical headache. Past medical history notable for mental health issues. Reports use of Lyrica, lithium. Unknown other medications that she cannot recall. She also takes tizanidine at bedtime for tension headaches and also has migraine therapy as described above. Nonsmoker, no recreational pharmaceuticals. ROS is notable for the headache as described above with some vague memory changes and sleepiness associated with that, otherwise denies times 12 systems. Related Data Home Medications Medication Instructions Recorded Confirmed albuterol sulfate .ROUTE 05/26/22 clonazepam 0.5 mg tablet mg 05/26/22 levothyroxine 50 mcg tablet mcg 05/26/22 lithium carbonate 300 mg capsule mg 05/26/22 sumatriptan succinate 100 mg tablet mg PO 05/26/22 Previous Rx's Medication Instructions Recorded cephalexin 500 mg capsule 500 mg PO TID 6 days #18 caps 12/18/22 fluconazole 150 mg tablet 150 mg PO DAILY #1 tab 12/18/22 Allergies Allergy/AdvReac Type Severity Reaction Status Date / Time No Known Drug Allergies Allergy Verified 05/26/22 15:59 [facility] Medical History (Updated 08/11/23 @ 01:18 by Liv Jurado MD) Allergic reaction to allergy skin test ?T78.49XA - Other allergy, initial encounter (ICD-10) Surgical History (Updated 05/14/23 @ 15:03 by Annette Morgan) History of tonsillectomy (2009) ?Z90.89 - Acquired absence of other organs (ICD-10) History of spinal fusion for scoliosis (2011) ?Z98.1 - Arthrodesis status (ICD-10) ?Z87.39 - Personal history of other diseases of the musculoskeletal system and connective tissue (ICD-10) Family History (Updated 05/14/23 @ 15:11 by Annette Morgan) Mother Thyroid disease Father Asthma Depression Sister Asthma Autism spectrum disorder Maternal Grandfather Depression High cholesterol High blood pressure Maternal Grandmother Depression High cholesterol High blood pressure Other Coronary artery disease Social History Smoking Status: Current every day smoker Do you use any of these nicotine containing products: Vaping Products Second hand tobacco smoke exposure: No How often do you have a drink containing alcohol: 2-4 times a month AUDIT-C Alcohol total score: 2 Non-prescribed substance use: denies use service: No Exam Const: Vital Signs, click to edit/add: Vital Signs - 24 hr 08/10/23 23:24 Temperature 97.9 F Pulse Rate [Pulse Oximeter] 78 Respiratory Rate 16 Blood Pressure [Ri ght Upper Arm] 126/72 Pulse Oximetry 97 Oxygen Delivery Me thod Room Air Documenting provider has reviewed patient's vital signs: yes Common normals: no apparent distress, oriented x3 and alert General appearance: cooperative, comfortable and well kempt Orientation/consciousness: Yes awake HENMT: Common normals: normocephalic and TM's normal bilaterally Head and scalp: normocephalic Face and sinus: normal facial exam Tympanic membrane: TM's normal bilaterally Mouth: oral and palatal mucosa normal Throat: posterior oropharynx normal Eye: Common normals: PERRL, EOMs intact bilaterally and conjunctivae normal General eye: normal appearance of both eyes Conjunctiva: conjunctiva(e) normal Pupil: PERRL Neck & C-Spine: Common normals: full ROM, no lymphadenopathy and supple Cervical spine: cervical ROM normal; no cervical spine tenderness Resp: Common normals: normal respiratory effort, no use of accessory muscles and clear to auscultation bilaterally Effort & inspection: able to speak in complete sentences Auscultation: clear to auscultation bilaterally Cardio: Common normals: regular rate, regular rhythm, S1 normal heart sound, S2 normal heart sound and no murmurs Rate: regular rate Rhythm: regular rhythm Heart sounds: S1 normal and S2 normal Neuro: Common normals: oriented x3, CN's II-XII intact bilaterally, moves all extremities, no focal motor deficits and gait normal ( Observed walking into room) Sensorium/orientation: awake and alert Speech: speech normal Motor exam: no tremor noted Psych: Appearance: well kempt Attitude: engaged Activity/motor behavior: appropriate eye contact Attention/concentration: attention grossly intact Insight: insight good Judgement: judgment good Skin: Common normals: no rashes or lesions noted General skin exam: no rashes or lesions noted Course Course ED Course: bilateral headache with known history of tension and migraine headaches. No trauma. Mild suspicion since that is worse than her usual for possible intracranial pathology but I have concerns especially since she has already had 2 head CTs this year that were nonrevealing. Counseled patient on the risk of radiation versus potential benefit. I am not appreciating any focal neurological changes on exam. I recommended a trial of symptomatic care 1st and avoiding head CT. She was agreeable to this. She says that she can call her sister to bring her home if the medications are sedating. Will place peripheral IV, give 1 L of normal saline, 15 mg of Toradol and 25 mg of IV Benadryl, reassess. Reevaluation(s) Time of Reevaluation #1: 01:49 Reevaluation #1: patient reporting marked improvement in headache after interventions. Alarm symptoms reviewed. Discussed Tylenol for pain control, may repeat Nurtec this afternoon. Use NSAIDs sparingly because of her lithium but may repeat at 7:00 a.m. if needed. Okay to use melatonin to help her sleep tonight and okay to take her muscle relaxant as planned. Caffeine when she wakes and lots of fluids for the next 24 hours. She verbalized understanding and agreement has no further questions. Vital Signs Vital signs: Initial Vital Signs Temperature 97.9 F 08/10/23 23:24 Temperature Source Temporal Artery Scan 08/10/23 23:24 Pulse Rate 78 08/10/23 23:24 Respiratory Rate 16 08/10/23 23:24 Blood Pressure 126/72 08/10/23 23:24 Blood Pressure Mean 90 08/10/23 23:24 Blood Pressure Position Sitting 08/10/23 23:24 Pulse Oximetry 97 08/10/23 23:24 Oxygen Delivery Method Room Air 08/10/23 23:24 Vital Signs Temperature 97.9 F 08/10/23 23:24 Pulse Rate 78 08/10/23 23:24 Respiratory Rate 16 08/10/23 23:24 Blood Pressure 126/72 08/10/23 23:24 Pulse Oximetry 97 08/10/23 23:24 Oxygen Delivery Method Room Air 08/10/23 23:24 Temperature 97.9 F 08/10/23 23:24 Pulse Rate 78 08/10/23 23:24 Respiratory Rate 16 08/10/23 23:24 Blood Pressure 126/72 08/10/23 23:24 Pulse Oximetry 97 08/10/23 23:24 Oxygen Delivery Method Room Air 08/10/23 23:24 Medications Administered Medications: Discontinued Medications Generic Name Dose Route Start Last Admin Trade Name Freq PRN Reason Stop Dose Admin Diphenhydramine HCl 25 mg 08/11/23 00:35 08/11/23 00:58 Diphenhydramine 50 Mg/Ml Inj IVP 08/11/23 00:36 25 mg ONCE ONE Administration Sodium Chloride 1,000 mls @ 1,000 mls/hr 08/11/23 00:35 08/11/23 00:58 0.9 % Sodium Chloride 1000 Ml IV 08/11/23 01:34 1,000 mls/hr .Q1H TERESA Administration Ketorolac Tromethamine 15 mg 08/11/23 00:35 08/11/23 00:58 Ketorolac 15 Mg/Ml Inj IVP 08/11/23 00:36 15 mg ONCE ONE Administration Discharge Plan Discharge Clinical Impression: Migraine Patient Disposition: Home, Self-Care Condition: Improved Instructions: Migraine Headache (ED) Additional Instructions: As we discussed, there are no red flags for intracranial hemorrhage, stroke or other emergent pathology. You have already had 2 CT scans in the past year. Multiple consecutive CT scans increases chance of radiation injury to the brain. Since her exam is reassuring, I do not recommend further workup. I am glad that your symptoms are somewhat improving with the treatments given. It is okay to use your muscle relaxant when you get home. He may also use melatonin if needed for sleep. Drink lots of fluids for the next 24 hours. You may take another dose appear migraine medication this afternoon if needed and or your next dose of Aleve at 8:00 a.m. if needed. You may continue taking Tylenol 1000 mg every 6 hours in addition to this. It may take a few days for the headache to go away completely. If have worsening of neurological changes or severe pain, your welcome back in the emergency department for reassessment. If you continue to have headaches, I would recommend following up with your headache specialist and/or Neurology team for further assessment. Activity Level: No Restrictions Discharge Diet: Regular Prescriptions: No Action albuterol sulfate .ROUTE sumatriptan succinate 100 mg tablet PO clonazepam 0.5 mg tablet lithium carbonate 300 mg capsule Patient Comments: TAKE 1 CAPSULE BY MOUTH AT BEDTIME FOR 3 DAYS. THEN INCREASE TO 2 CAPSULES BY MOUTH AT BEDTIME levothyroxine 50 mcg tablet cephalexin 500 mg capsule 500 mg PO TID 6 Days Qty: 18 0RF fluconazole 150 mg tablet 150 mg PO DAILY Qty: 1 1RF Follow Up/Referrals: Vane Black PA-C [Primary Care Provider] - Stand Alone Forms: [employer] Info Instructions
[2023-08-11] MEDS: KETOROLAC 15 MG/ML inj IVP (00:58)
[2023-08-11] MEDS: 0.9 % SODIUM CHLORIDE 1000 ml 1,000 ML IV (00:58)
[2023-08-11] MEDS: diphenhydrAMINE 50 MG/ML inj 25 MG IVP (00:58)
== END 2023-08-11 02:05 | disposition home or self-care (01) ==
PROVIDERS: Emergency Provider Family Medicine; PCP Student in an Organized Health Care Education/Training Program
DX: G43.909 Migraine, unspecified, not intractable, without status migrainosus (principal)
CPT/HCPCS: 96374; 96375; 99284; J1200; J1885; J7030

== ENCOUNTER 2023-09-26 21:32 | Emergency (ER) | payer MEDICAID, SELFPAY ==
[2023-09-26 21:47] VITALS: BP 128/82; PULSE 93; RESP 16; TEMP 36.9; O2SAT 98; BMI 35.0
--- OUTSIDE RECORDS SUMMARY | 2023-09-26 22:24 | XMS_ITS | Clinical Summary ---
Author Name Unknown Organization [facility] Address [place], [place] [address] Care Team Providers Care Addictions Recovery Specialist Name Role Phone November SOLICITOR PATENT Unavailable Vane Black Primary Care Provider [phone] Allergies Active Allergy Reactions Criticality Noted Date Comments Milmine GI Upset 08/25/2018 Patient reports immediate stomach pain. Milmine Oil GI Upset 04/27/2018 Marfa GI Upset 04/27/2018 Patient reports it feels like a rock when I eat it, for 48 hours and I cannot digest it. Crab GI Upset 04/27/2018 Lactose GI Upset 08/25/2018 Patient reports it is severe. [place] Oil Other - Describe In Comment Field 07/11/2018 Trazodone Other - Describe In Comment Field 09/17/2023 Suicidal thoughts Medications Medication Sig Dispensed Refills Start Date End Date Status levonorgestrel intrauterine device (Mirena) 20 mcg/24 hours (7 yrs) 52 mg IUD Inject 1 Device intrauterine. 0 1 Active EPINEPHrine (EPIPEN) 0.3 mg/0.3 mL auto-injector Inject 0.3 mg intramuscular each time if needed. 0 1 Active ondansetron (ZOFRAN ODT) 4 mg disintegrating tabletIndications:N ausea Place 1 Tablet (4 mg) on the tongue every 8 hours if needed for Nausea/Vomiting. 15 Tablet 0 3 Active albuterol HFA (PRO-AIR; VENTOLIN; PROVENTIL) 90 mcg/actuation inhalerIndications: Wheezing Inhale 2 Puffs by mouth every 4 hours if needed for Shortness Of Breath. 2 Each 1 07/11/202 3 Active pantoprazole (PROTONIX) 40 mg delayed-release tabletIndications:A bdominal pain, epigastric TAKE 1 TABLET(40 MG) BY MOUTH EVERY DAY 90 Tablet 3 3 Active diclofenac topical (VOLTAREN) 1 % gelIndications:Cost ochondritis Apply 2 g topically to affected area(s) four times daily. 100 g 0 3 Active clonazePAM (KLONOPIN) 0.5 mg tabletIndications:C hronic post-traumatic stress disorder (PTSD) Take 1 Tablet (0.5 mg) by mouth once daily if needed for Anxiety. 14 Tablet 5 3 Active lithium carbonate (LITHONATE) 300 mg capsuleIndications: Bipolar 1 disorder, mixed, moderate (HC) Take 1 Capsule (300 mg) by mouth at bedtime. Take in addition to a 600 mg capsule. 14 Capsule 6 3 Active lithium carbonate 600 mg capsuleIndications: Bipolar 1 disorder, mixed, moderate (HC) Take one capsule by mouth at bedtime. 14 Capsule 6 3 Active pregabalin (LYRICA) 25 mg capsuleIndications: Generalized anxiety disorder with panic attacks Take 1 Capsule (25 mg) by mouth three times daily. 42 Capsule 5 3 Active rimegepant (NURTEC) 75 mg orally disintegrating tabletIndications:C oncussion without loss of consciousness, subsequent encounter,Chronic post-traumatic headache, not intractable,Work related injury,Migraine with aura and without status migrainosus, not intractable Place 75 mg on the tongue once every other day. 45 Tablet 0 4 Active suvorexant (BELSOMRA) 10 mg tabletIndications:C oncussion without loss of consciousness, subsequent encounter,Work related injury,Insomnia due to medical condition Take 10 mg by mouth at bedtime. 90 Tablet 0 4 Active tiZANidine (ZANAFLEX) 2 mg tabletIndications:C oncussion without loss of consciousness, subsequent encounter,Chronic post-traumatic headache, not intractable,Work related injury,Whiplash, subsequent encounter Take 1 Tablet (2 mg) by mouth at bedtime. 90 Tablet 0 4 Active amantadine HCL (SYMMETREL) 100 mg capsuleIndications: Concussion without loss of consciousness, subsequent encounter,Work related injury,Cognitive dysfunction Take 1 Capsule (100 mg) by mouth two times daily. Take with breakfast and lunch. For first 5 days, only take once daily with breakfast. 60 Capsule 2 3 09/21/19 24 Discontinu ed(*Patien t states no longer taking) rimegepant (NURTEC) 75 mg orally disintegrating tabletIndications:C oncussion without loss of consciousness, subsequent encounter,Chronic post-traumatic headache, not intractable,Work related injury,Migraine with aura and without status migrainosus, not intractable Place 75 mg on the tongue once daily if needed for Headache. 10 Tablet 2 3 09/21/19 24 Discontinu ed(Reorder (E-cancel not sent)) tiZANidine (ZANAFLEX) 2 mg tabletIndications:C oncussion without loss of consciousness, subsequent encounter,Chronic post-traumatic headache, not intractable,Work related injury,Whiplash, subsequent encounter Take 1 Tablet (2 mg) by mouth at bedtime. 30 Tablet 2 3 09/21/19 24 Discontinu ed(Reorder (E-cancel not sent)) suvorexant (BELSOMRA) 10 mg tabletIndications:C oncussion without loss of consciousness, subsequent encounter,Work related injury,Insomnia due to medical condition Take 10 mg by mouth at bedtime. 30 Tablet 2 3 09/21/19 24 Discontinu ed(Reorder (E-cancel not sent)) Active Problems Problem Noted Date Diagnosed Date Other specified hypothyroidism 04/21/2022 Anxiety 03/18/2022 Head injury 03/18/2022 PCOS (polycystic ovarian syndrome) 03/12/2022 Dizziness 02/17/2022 Overview: Last Assessment & Plan: So far, her labs didn't reveal any significant abnormalities. I think her symptoms are due to combination of a mild concussion and (more so) the stress of her social situation. She still has very mild dizziness with the lateral gaze, which I think would improve with time. Migraine with aura and witho ut status migrainosus, not intractable 06/03/2021 Dysmenorrhea 10/25/2020 Overview: Added automatically from request for surgery [id number] Anorexia nervosa, restrictin g type, in partial remission, moderate 06/24/2020 Insomnia 06/24/2020 Mixed obsessional thoughts and acts 06/24/2020 Endometriosis 05/28/2020 Overview: 10/18/20: Patient presents with greater than 5-year history of dysmenorrhea that is debilitating for patient. Patient has been actively seeking treatment of the past 4 years. Patient has tried cyclic use of NSAIDs, patient has also tried multiple forms of combined OCPs, NuvaRing, patient has also tried progesterone only contraception, and patient currently has Nexplanon device in place. Despite these multiple etiologies of hormonal contraception patient has had no improvement in her pelvic pain. Patient in addition does not like the side effects that she experiences in relation to hormonal contraception. Patient at this visit expressing a strong desire to move forward with definitive management in the form of hysterectomy. Patient is candidate and expressing that she knows that this is not the standard of care at her age but feels strongly about moving forward with surgery for management. Patient comfortably expresses that she never desires to have her own biologic children. Patient feels that she cannot continue to suffer as she is doing for the rest of her life with such poor responses to medication so far. Reviewed with patient additional options to consider to try it for management of her pain will continue to evaluate for causes of her pain. Patient is in agreement with moving forward with diagnostic laparoscopy with excision of endometrial implants if encountered as well as diagnostic hysteroscopy with D&C. Reviewed with patient and GnRH agonist and antagonist treatment and patient feels willing to try GnRH antagonist treatment in the form of Orilissa. Prescription for this is been placed and will proceed with prior authorization. We will continue to gather information in form of diagnostic surgery. Patient was willing to seek out second opinion regarding management of her symptoms and for consideration of surgery. Patient understands that this is not the routine standard of care for her symptoms and at her age but is willing to take all steps necessary to help her move in that direction. 11/28/20: Patient seen for preoperative visit. Patient is currently scheduled to undergo diagnostic laparoscopy with excision versus discussion of endometrial implants and lysis of adhesions if encountered. Surgery is currently scheduled for 12/04/2020. Consents were signed. Menorrhagia with irregular cycle 05/28/2020 Overview: 10/18/20: Patient with significant history of menorrhagia. The symptoms have not been controlled in the past with NSAIDs or combined hormonal contraception and forms of oral route, transdermal route, and vaginal ring. Patient currently has Nexplanon device in place that is resulted in daily light spotting and still significantly heavy bleeding during her menstrual cycles which will bleed through both tampons and pads and still slow to improve when garments. For management of this patient currently has Nexplanon in place and is on: Side and oral contraceptive pills that she is taking in a continuous fashion. Bleeding is slightly better controlled but still heavier than the average person and still bleeding to significant frustration and impact on quality of life for patient. Uterine fibroid 05/28/2020 Overview: 10/09/20: Pelvic US demonstrating 1.4 x 1.4 x 1.7 cm posterior myometrial fibroid is noted 10/18/20: Reviewed at visit that uterine leiomyomata are definitely a known cause for heavier menstrual bleeding. Would be difficult time is to do pelvic pain as a solitary source. Other symptoms and signs inv olving the musculoskeletal system 03/28/2020 Chronic post-traumatic stress disorder (PTSD) Overview: Last Assessment & Plan: I think some of her symptoms are due to stress. Eating disorder 01/09/2020 Borderline personality disorder 08/23/2018 Mood disorder 08/23/2018 Resolved Problems Problem Noted Date Diagnosed Date Resolved Date Inability to cope 01/09/2020 06/12/2022 Encounters Date Type Department Care Team Description 09/23/2023 12:59 PM PIPE THREADER - 09/23/2023 11:59 PM PIPE THREADER Hospital Encounter [facility] - [address] [place] [address] Asya Owen MD Burns, Kayla A, OT 09/23/2023 Travel 09/21/2023 1:00 PM PIPE THREADER Office Visit [facility] [address] [place] [address] Asya Owen MD Follow Up (Head injury doi 10/30/22) 09/21/2023 Travel 09/15/2023 Travel 09/10/2023 Telephone [facility] [address] [place] [address] Asya Owen MD 09/06/2023 1:56 PM PIPE THREADER - 09/06/2023 11:59 PM PIPE THREADER Hospital Encounter [address] [address] Asya Owen MD Tierney, Doreen A, X [employer]LECT[employer] WIREMAN 09/06/2023 Travel 08/31/2023 1:00 PM PIPE THREADER - 08/31/2023 11:59 PM PIPE THREADER Hospital Encounter [address] [address] Asya Owen MD Burns, Kayla A, OT 08/30/2023 1:49 PM PIPE THREADER - 08/30/2023 11:59 PM PIPE THREADER Hospital Encounter [address] [address] Asya Owen MD Tierney, Doreen A, [employer] W[employer]MAN 08/30/2023 1:00 PM PIPE THREADER - 08/30/2023 1:48 PM PIPE THREADER Hospital Encounter [address] [address] Asya Owen MD Iverson, Ryan, PT 08/30/2023 Travel 08/25/2023 1:45 PM PIPE THREADER - 08/25/2023 11:59 PM PIPE THREADER Hospital Encounter [address] [address] Asya Owen MD Tierney, Doreen A, [employer] W[employer] 08/24/2023 1:45 PM PIPE THREADER - 08/24/2023 11:59 PM PIPE THREADER Hospital Encounter [address] [address] Asya Owen MD Burns, Kayla A, OT 08/24/2023 Travel 08/23/2023 Telephone [facility] [address] [place] [address] Asya Owen MD 08/20/2023 Nurse Triage [facility] [address] [place] [address] Asya Owen MD Insomnia 08/20/2023 Telephone [facility] [address] [place] [address] Vane Black PA 08/18/2023 1:45 PM PIPE THREADER - 08/18/2023 11:59 PM PIPE THREADER Hospital Encounter [address] [address] Asya Owen MD Tierney, Doreen A, [employer] W[employer]MAN 08/17/2023 12:15 PM PIPE THREADER - 08/17/2023 11:59 PM PIPE THREADER Hospital Encounter [address] [address] Asya Owen MD Burns, Kayla A, OT 08/17/2023 Travel 08/12/2023 1:30 PM PIPE THREADER - 08/12/2023 11:59 PM PIPE THREADER Hospital Encounter [address] [address] Asya Owen MD Tierney, Doreen A, X [employer] WIREMAN 08/12/2023 Telephone [facility] [address] [facility] [address] [place] [address] Asya Owen MD Prior Authorization (suvorexant (BELSOMRA) 10 mg tablet - APPEAL APPROVED 08/18/2023 - 08/18/2024) 08/12/2023 Travel 08/10/2023 Telephone [facility] [address] [place] [address] Asya Owen MD 08/06/2023 4:00 PM PIPE THREADER Telemedicine [facility] [address] [place] [address] Kendal Vallejo, ISSAC Medication Management; Telehealth (AL) 08/05/2023 Travel 08/04/2023 2:15 PM PIPE THREADER - 08/04/2023 11:59 PM PIPE THREADER Hospital Encounter [address] [address] Asya Owen MD Tierney, Doreen A, X [employer] W[employer]MAN Concussion without loss of consciousness, subsequent encounter; Work related injury; Cognitive dysfunction 08/04/2023 Travel 08/02/2023 1:00 PM PIPE THREADER - 08/02/2023 11:59 PM PIPE THREADER Hospital Encounter [facility] [address] [facility] [address] [place] [address] Asya Owen MD Lee, Molly E, PT 08/02/2023 Travel 07/30/2023 1:41 PM PIPE THREADER - 07/30/2023 11:59 PM PIPE THREADER Hospital Encounter [address] [address] Asya Owen MD Burns, Kayla A, OT Concussion without loss of consciousness, subsequent encounter; Work related injury; Visual problems; Convergence insufficiency; Fatigue, unspecified type; Photophobia; Sensory processing difficulty; Phonophobia 07/29/2023 2:30 PM PIPE THREADER - 07/29/2023 11:59 PM PIPE THREADER Hospital Encounter [facility] [address] [facility] [address] [place] [address] Asya Owen MD Lee, Molly E, PT 07/29/2023 Travel 07/22/2023 8:45 AM PIPE THREADER Office Visit [facility] [address] [place] [address] Asya Owen MD Follow Up 07/22/2023 Refill [facility] [address] [place] [address] Asya Owen MD Refill Request (Amantadine Hcl) 07/22/2023 Travel 07/20/2023 1:25 PM PIPE THREADER - 07/20/2023 11:59 PM PIPE THREADER [facility] [address] [facility] [address] [place] [address] Asya Owen MD Lee, Molly E, PT 07/20/2023 Travel 07/01/2023 7:58 AM PIPE THREADER - 07/01/2023 11:59 PM PIPE THREADER [facility] [address] [facility] [address] [place] [address] Asya Owen MD Lee, Molly E, PT Work related injury; Concussion without loss of consciousness, subsequent encounter; Vestibular dysfunction, unspecified laterality 07/01/2023 Travel from Last 3 Months Immunizations Name Administration Dates Next Due COVID-19 Vaccine Spikevax (M oderna 50mcg/0.5mL) 12YO+ [id number] Formula PF 08/23/2023 COVID-19 vaccine (Moderna 100mcg/0.5mL) PF, MDV 08/02/2021,09/27/2020 COVID-19 vaccine (Pfizer-Bio NTech 30mcg/0.3mL) 12YO+ BIVALENT PF, MDV 06/26/2022 DTaP 04/29/2004, 2,08/25/2001,10/25,1999,1999,1999 HIB HbOC (HibTITER) 1999,1999 HIB PRP-T (ActHIB,Hiberix) 04/26/2000,,1999,07/01 Hepatitis A (Peds) 12/14/2014,04/20/2014 Hepatitis B (Adult) 04/26/2000,1999 Hepatitis B (Peds) 04/26/2000, 0,1999,08/25 Hepatitis B, Unspecified 04/26/2000,1999 Hib Conjugate, Unspecified 1999 Human Papilloma Virus Vaccine 12/14/2014, 014,04/20/2014 Inactivated Polio Vaccine 04/29/2004,05/2002,10/25/2000,08/25,1999 Influenza Virus, Unspecified 08/25/2018 Influenza, IIV3 (Age 6-35 mos) 06/04/2015,2012,09/29/2011 Influenza, IIV4 05/17/2023, 2,04/25/2019,08/25,07/24/2017,07/03/2016,05/24/2012 MMR 04/29/2004,04/26/2000 Meningococcal Vaccine (Menactra) 05/21/2010 Pneumococcal conj 7-Valent (Prevnar 7) 1,10/25/2000 Tdap 05/21/2010 Varicella Vaccine 05/21/2010,04/26/2000 Family History Medical History Relation Name Comments Allergic rhinitis Father Asthma Father Hypothyroidism Maternal Grandfather Hypothyroidism Maternal Grandmother Thyroid cancer Maternal Grandmother Hypothyroidism Mother Other Paternal Grandfather mva Autism spectrum disorder Sister 1 elvsi Asthma Sister 2 melvin Relation Name Status Comments Brother 1 wang Alive Brother 2 jovan Alive Father Alive Maternal Grandfather Alive Maternal Grandmother Alive Mother Alive Paternal Grandfather Paternal Grandmother Alive Sister 1 elvis Alive Sister 2 melvin Alive Social History Tobacco Use Types Packs/Day Years Used Date Smoking Tobacco: Never Cigarettes Qu it: 11/2018 Smokeless Tobacco: Never Tobacco Cessation:Counseling Given: Yes Alcohol Use Standard Drinks/Week Comments Not Currently 1 (1 standard drink = 0.6 oz pur e alcohol) rare PHQ-2 Answer Date Recorded PHQ-2 TOTAL SCORE 5 08/05/2023 Social Connections Answer Date Recorded Frequency of Communication with Friends and Fami ly 0 06/15/2023 Financial Resource Strain Answer Date R ecorded Difficulty of Paying Living Expenses 3 06/15/2023 Difficulty of Paying Living Expenses Not on file 06/15/2023 Food Insecurity Answer Date Recorded Worried About Running Out of Food in the Last Ye ar 1 06/15/2023 Transportation Needs Answer Date Record ed Lack of Transportation (Medical) 1 06/15/2023 Housing Stability Answer Date Recorded Unable to Pay for Housing in the Last Year 1 06/15/2023 Sex and Gender Information Value Date Recorded Sex Assigned at Female 09/15/2023 10:11 AM PIPE THREADER Gender Identity Female 09/15/2023 10:11 AM PIPE THREADER Sexual Orientation Not on file Obstetrics History Para Term AB IAB SAB Ectopic Multiple Livin g Live Births 0 0 0 0 0 0 0 0 0 0 0 Last Filed Vital Signs Vital Sign Reading Time Taken Comments Blood Pressure 106/72 09/21/2023 1:17 PM PIPE THREADER Pulse 84 09/21/2023 1:17 PM PIPE THREADER Temperature 37.4 ??C (99.3 ??F) 07/22/2023 8:51 AM CS T Respiratory Rate 16 07/22/2023 8:51 AM PIPE THREADER Oxygen Saturation 98% 07/22/2023 8:51 AM PIPE THREADER Inhaled Oxygen Concentration - - Weight 105 kg (231 lb 6.4 oz) 06/15/2023 7:35 AM CDT Height 170.2 cm (5' 7) 01/29/2023 11:30 AM CDT Body Mass Index 36.24 01/29/2023 11:30 AM CDT Plan of Treatment Upcoming Encounters Date Type Department Care Team (Late st Contact Info) Description 09/28/2023 1:45 PM PIPE THREADER Appointment [facility] [address] [place] [address] Kapil Greene, PT [address] [place] [address] 11/23/2023 8:30 AM CDT Office Visit [facility] [address] [facility] [address] [place] [address] Ricardo Petersen, PhD, LP [address] [place] [address] 11/25/2023 1:00 PM CDT Office Visit [facility] [address] [facility] [address] [place] [address] Asya Owen MD [address] [facility] [address] [place] [address] Health Maintenance Due Date Last Done Comments Hepatitis C screening for age 18-79 2017 Tetanus booster 05/21/2020 05/21/2010 Pap test for age 21-65 05/30/2023 0 (Verified in Care Everywhere or Patient Record) BMI (ht and wt on same day) for age 18+ 09/03/2023 09/03/2022, 06/01/2022, 03/12/2022, Additional history exists Chlamydia for age 16-24 09/03/2023 09/03/19 23, 09/26/2019, 08/14/2019, Additional history exists Depression screening for age 12+ 08/06/2024 08/06/2023, 04/22/2023, 04/18/2023, Additional history exists Pneumococcal series for age 6-64 Aged Out 04/25/2001, 10/25/2000 No longer eligibl e based on patient's age to complete this topic Tdap Completed 05/21/2010 HPV series for age 9-26 Completed 12/15/19 15, 07/06/2014, 04/20/2014 HIV for age 15-65 Completed 09/03/2022 Influenza for age 9-49 Completed 3, 06/26/2022, 04/25/2019, Additional history exists COVID-19 vaccine series Completed 08/23/19 24, 06/26/2022, 08/02/2021, Additional history exists Advance Directives Latest Code Status on File Code Status Date Activated Date Inactivated Comments Full Code 04/14/2023 12:27 PM 04/14/2023 5:32 PM Question Answer Comments Code Status Discussion: Discussed Care Teams Addictions Recovery Specialist Relationship Specialty Start Date End Date Vane Black PA [address] [place] [address] PCP - General Physician Licensed Aircraft Maintenance Engineer 02/15/23 Kendal Vallejo NP [address] [place] [address] Mental Health Provider Nurse Practitioner - Mental Health 03/18/22
--- OUTSIDE RECORDS SUMMARY | 2023-09-26 22:25 | XMS_ITS | Encounter Summary ---
Author Name Unknown Organization [facility] Address [address] [facility] [place] [address] Care Team Providers Care Rock Picker Name Role Phone Sukhwinder Gerard MD Unavailable [phone] Vane Black Primary Care Provider [phone] Encounter Details Date Type Department Care Team (Latest Contact Info) Description 05/12/2023 Travel Social History Tobacco Use Types Packs/Day Years Used Date Smoking Tobacco: Never Smokeless Tobacco: Never Alcohol Use Standard Drinks/Week Comments Yes 0 (1 standard drink = 0.6 oz pur e alcohol) socially PHQ-2 Answer Date Recorded PHQ-2 Score 6 02/20/2020 Adolescent Education Answer Date Record ed Getting School Help Needed Not on file 05/12 Sex and Gender Information Value Date Recorded Sex Assigned at Not on file Gender Identity Not on file Sexual Orientation Not on file COVID-19 Exposure Response Date Recorded In the last 10 days, have yo u been in contact with someone who was confirmed or suspected to have Coronavirus/COVID-19? No / Unsure 05/12/2023 2:30 PM CDT documented as of this encounter Plan of Treatment Not on file documented as of this encounter Visit Diagnoses Not on filedocumented in this encounter Additional Health Concerns Assessment Noted Time PHQ-9 Depression Total Score: 26 020 3:00 PM CDT documented as of this encounter Care Teams Rock Picker Relationship Specialty Start Date End Date Vane Black PA [address] [place] [address] PCP - General Family Practice 05/12/23 Sukhwinder Gerard MD [address] [address] Gastroenterology 03/08/20 documented as of this encounter
--- OUTSIDE RECORDS SUMMARY | 2023-09-26 22:25 | XMS_ITS | Encounter Summary ---
Author Name Unknown Organization [place] Address [address] [facility] [place] [address] Care Team Providers Care Loading Unit Tool Setter Name Role Phone Sukhwinder Gerard MD Unavailable [phone] Vane Black Primary Care Provider [phone] Reason for Visit * Diagnostic Imaging Mammo (Routine) - Closed Specialty Diagnoses / Procedures Referred By Heide t Referred To Contact Radiology. Diagnoses Lump of breast, right Discharge from right nipple Procedures MA Diagnostic Bilateral w/Sathish Latoya Zapata NP [facility] [address] [place] [address] Referral ID Status Reason Start Date Expiration Date Visits Re quested Visits Authorized [id number] Closed 05/06/2023 05/05/2024 1 1 Encounter Details Date Type Department Care Team (Latest Contact Info) Description 05/12/2023 2:33 PM CDT - 05/12/2023 11:59 PM CDT Hospital Encounter [facility] [address] [facility], [address] [place] [address] Latoya Zapata NP [facility] [address] [place] [address] Lump of breast, right; Discharge from right nipple Discharge Disposition: Home or Self Care Social History Tobacco Use Types Packs/Day Years [...] PM CDT documented as of this encounter Medications at Time of Discharge Medication Sig Dispensed Refills Start Date End Date drospirenone-ethinyl estradiol (KALEIGH) 3-0.03 MG tabletIndications:Menorr hagia with regular cycle,Pelvic pain in female,PCOS (polycystic ovarian syndrome),Endometriosis Take 1 pill daily of active pills for 4 packs (12 weeks) Prior to taking 1 week of inactive pills. 112 tablet 1 11/27/2019 hydrOXYzine (ATARAX) 25 MG tablet 0 11/27/2019 ibuprofen (ADVIL/MOTRIN) 600 MG tablet Take 1 tablet (600 mg) by mouth every 6 hours as needed for moderate pain 20 tablet 0 11/12/2018 ondansetron (ZOFRAN-ODT) 4 MG ODT tabIndications:Nausea Take 1 tablet (4 mg) by mouth every 8 hours as needed for nausea 10 tablet 0 02/20/2020 rizatriptan (MAXALT) 10 MG tabletIndications:Migrai ne with aura and without status migrainosus, not intractable Take 1 tablet (10 mg) by mouth at onset of headache for migraine May repeat in 2 hours. Max 3 tablets/24 hours. 0 11/27/2019 tiZANidine (ZANAFLEX) 2 MG tablet Take 2 mg by mouth 2 times daily as needed for muscle spasms 0 documented as of this encounter Plan of Treatment Not on file documented as of this encounter Visit Diagnoses Diagnosis Lump of breast, right Lump or mass in breast Discharge from right nipple documented in this encounter Additional Health Concerns Assessment Noted Time PHQ-9 Depression Total Score: 26 020 3:00 PM CDT documented as of this encounter Care Teams Loading Unit Tool Setter Relationship Specialty Start Date End Date Vane Black PA [address] [place] [address] PCP - General Family Practice 05/12/23 Sukhwinder Gerard MD [address] [address] Gastroenterology 03/08/20 documented as of this encounter
--- OUTSIDE RECORDS SUMMARY | 2023-09-26 22:25 | XMS_ITS | Encounter Summary ---
Author Name Unknown Organization [place] Address [facility] [place] [address] Care Team Providers Care Watermaster Name Role Phone Marilou Quigley MD Primary Care Provider [phone] Sukhwinder Gerard MD Unavailable [phone] Lucy Valverde MD Unavailable [phone] Encounter Details Date Type Department Care Team (Latest Contact Info) Description 11/06/2022 Travel Social History Tobacco Use Types Packs/Day Years Used Date Smoking Tobacco: Never Smokeless Tobacco: Never Alcohol Use Standard Drinks/Week Comments Yes 0 (1 standard drink = 0.6 oz pur e alcohol) socially PHQ-2 Answer Date Recorded PHQ-2 Score 6 02/20/2020 Sex and Gender Information Value Date Recorded Sex Assigned at Not on file Gender Identity Not on file Sexual Orientation Not on file COVID-19 Exposure Response Date Recorded In the last 10 days, have yo u been in contact with someone who was confirmed or suspected to have Coronavirus/COVID-19? No / Unsure 11/06/2022 5:56 PM CDT documented as of this encounter Plan of Treatment Not on file documented as of this encounter Visit Diagnoses Not on filedocumented in this encounter Additional Health Concerns Assessment Noted Time PHQ-9 Depression Total Score: 26 020 3:00 PM CDT documented as of this encounter Care Teams Watermaster Relationship Specialty Start Date End Date Marilou Quigley MD [facility] [address] [place] [address] PCP - General 04/29/17 05/11/23 Sukhwinder Gerard MD [address] [address] Gastroenterology 03/08/20 Lucy Valverde MD [address] [facility] [address] [place], [place] [address] Assigned PCP 10/10/22 11/13/22 documented as of this encounter
--- OUTSIDE RECORDS SUMMARY | 2023-09-26 22:25 | XMS_ITS | Encounter Summary ---
Author Name Unknown Organization [place] Address [address] [facility] [place] [address] Care Team Providers Care Composing Room Machinist Apprentice Name Role Phone Marilou Quigley MD Primary Care Provider [phone] Lola Laurent-Winnie Unavailable [phone] Lucy Valverde MD Unavailable [phone] Sukhwinder Gerard MD Unavailable [phone] Sukhwinder Gerard MD Unavailable [phone] Vane Fish APRN MANAGER MBA Unavailable Un available Lucy Valverde MD Unavailable [phone] Lucy Valverde MD Unavailable [phone] Vane Fish APRN MANAGER MBA Unavailable Un available Vane Black Primary Care Provider [phone] Reason for Visit * Reason Onset Date Comments Mental Health Problem 04/29/2017 Encounter Details Date Type Department Care Team ([facility] st Contact Info) Description 04/29/2017 Telephone [facility] Behavioral Health Intake [address] [place] [phone] Generic, Behavioral Intake, Mental Health Problem Social History Tobacco Use Types Packs/Day Years Used Date Smoking Tobacco: Never Alcohol Use Standard Drinks/Week Comments No 0 (1 standard drink = 0.6 oz pur e alcohol) Sex and Gender Information Value Date Recorded Sex Assigned at Not on file Gender Identity Not on file Sexual Orientation Not on file documented as of this encounter Miscellaneous Notes * Telephone Encounter - Scott Saxena - 04/29/2017 5:53 PM CDT S: [facility] ED called to place a 17 yr old female for inpatient mental health treatment. B: Pt was BIB parents to the [facility] ED due to suicidal ideation with a plan to OD. Pt reports that she thinks of suicide every day and does not want to live past 17. Pt turned 17 six days ago. Pt reports she has been diagnosed with depression, BENSON, and anorexia. Pt has been in the [facility] forher eating disorder. While in the [facility] pt's parent only let her talk to a therapist, not apsychiatrist, as parents have been taking her to a biblical counselor for mental health treatment. Pt reports SIB urges to cut herself. Pt cut herself last night on both upper arms. Pt states I had a plan last night I thought I would find a bottle of pills or something and take them. I hurt myself by cutting but nothing enough to kill myself. Pt denies drug or alcohol use. Pt is medically cleared. Pt is voluntary. A: Refer to inpatient unit for mental health treatment. R: Admit to the Young Adult unit 7A under Dr. Bettencourt. Approved by Venessa Maza. documented in this encounter Plan of Treatment Not on file documented as of this encounter Visit Diagnoses Not on filedocumented in this encounter Additional Health Concerns Infection Onset Date Last Indicated Resolved Time Rule Out COVID-19 02/27/2020 02/27/2020 02/28/2020 2:25 PM CDT documented as of this encounter Care Teams Composing Room Machinist Apprentice Relationship Specialty Start Date End Date Marilou Quigley MD [facility] [address] [place] [address] PCP - General 04/29/17 05/11/23 Vane Black PA [address] [place] [address] PCP - General Family Practice 05/12/23 Lola Laurent PA-C [address] [address] Assigned PCP 09/23/19 11/18/19 Lucy Valverde MD [address] [place] [address] Assigned PCP 11/19/19 11/16/20 Sukhwinder Gerard MD [address] [place] [address] Gastroenterology 03/08/20 Sukhwinder Gerard MD MD GASTRO[facility]OLOGY [address] [address] [place] [address] Assigned Gastroenterology Provider 06/07/20 09/06/21 Vane Fish APRN MANAGER MBA Assigned PCP 11/17/20 02/27/21 Lucy Valverde MD [address] [place] [address] Assigned PCP 02/28/21 07/31/22 Lucy Valverde MD [address] [address] Assigned PCP 10/10/22 11/13/22 Vane Fish APRN MANAGER MBA Assigned PCP 11/14/22 02/19/23 documented as of this encounter
--- OUTSIDE RECORDS SUMMARY | 2023-09-26 22:25 | XMS_ITS | Referral Summary ---
Author Name Unknown Organization [place] Address [address] [facility] [place] [address] Care Team Providers Care Process Control Specialist Name Role Phone Sukhwinder Gerard MD Unavailable [phone] Vane Black Primary Care Provider [phone] Allergies Active Allergy Reactions Criticality Noted Date Comments Nickerson Oil 04/27/2018 Other reaction(s): GI Upset [place] Oil 04/27/2018 Other reaction(s): GI Upset Crab Extract Allergy Skin Test 04/27/2018 Other reaction(s): GI Upset Fish Oil Other (See Comments) 07/11/2018 Medications Medication Sig Dispensed Refills Start Date End Date Status ibuprofen (ADVIL/MOTRIN) 600 MG tablet Take 1 tablet (600 mg) by mouth every 6 hours as needed for moderate pain 20 tablet 0 11/12/2018 Active tiZANidine (ZANAFLEX) 2 MG tablet Take 2 mg by mouth 2 times daily as needed for muscle spasms 0 Active hydrOXYzine (ATARAX) 25 MG tablet 0 11/27/2019 Active drospirenone-ethinyl estradiol (KALEIGH) 3-0.03 MG tabletIndications:Me norrhagia with regular cycle,Pelvic pain in female,PCOS (polycystic ovarian syndrome),Endometrio sis Take 1 pill daily of active pills for 4 packs (12 weeks) Prior to taking 1 week of inactive pills. 112 tablet 1 11/27/2019 Active rizatriptan (MAXALT) 10 MG tabletIndications:Mi graine with aura and without status migrainosus, not intractable Take 1 tablet (10 mg) by mouth at onset of headache for migraine May repeat in 2 hours. Max 3 tablets/24 hours. 0 11/27/2019 Active ondansetron (ZOFRAN-ODT) 4 MG ODT tabIndications:Nause a Take 1 tablet (4 mg) by mouth every 8 hours as needed for nausea 10 tablet 0 02/20/2020 Active Active Problems Problem Noted Date Diagnosed Date Chronic post-traumatic stress disorder (PTSD) Eating disorder 01/09/2020 Generalized anxiety disorder 01/09/2020 Inability to cope 01/09/2020 Major depressive disorder 01/09/2020 Borderline personality disorder 08/23/2018 Episodic mood disorder (H24) 08/23/2018 Suicidal ideation 04/29/2017 Immunizations Name Administration Dates Next Due DTAP (<7y) 04/29/2004, 2,08/25/2001,2000,1999,1999,1999 HEPATITIS A (PEDS 12M-18Y) 12/14/2014,04/20/2014 HIB (PRP-T) 04/26/2000, 0,1999,1998 HPV Quadrivalent 12/14/2014,07/06/2014, 4 HepB 04/26/2000,1999,1999 Influenza (IIV3) PF 05/24/2012, 0,08/23/2007,2006 Influenza Vaccine >6 months,quad, PF 08/25/2018, 07/24/2017,07/03/2016 MMR 04/29/2004,04/26/2000 Meningococcal ACWY (Menactra??) 05/21/2010 Pneumococcal (PCV 7) 04/25/2001,10/25/2000 Poliovirus, inactivated (IPV) 04/29/2004 ,08/25/2001,10/25/2000,1999,1999 TDAP Vaccine (Adacel) 05/21/2010 Varicella 05/21/2010,04/26/2000 Social History Tobacco Use Types Packs/Day Years [...] on file Sexual Orientation Not on file Last Filed Vital Signs Vital Sign Reading Time Taken Comments Blood Pressure 107/75 12/30/2022 11:30 PM CDT Pulse 61 12/30/2022 11:30 PM CDT Temperature 36.1 ??C (96.9 ??F) 12/30/2022 7:22 PM CD T Respiratory Rate 18 12/30/2022 7:22 PM CDT Oxygen Saturation 100% 12/31/2022 12:01 AM CDT Inhaled Oxygen Concentration - - Weight 86.2 kg (190 lb) 12/30/2022 7:22 PM CDT Height 172.7 cm (5' 8) 12/30/2022 7:22 PM CDT Body Mass Index 28.89 12/30/2022 7:22 PM CDT Plan of Treatment Not on file Advance Directives For more information, please contact: [phone] Latest Code Status on File Code Status Date Activated Date Inactivated Comments Full Code 07/23/2017 10:23 PM 07/26/2017 5:52 PM Code Status History Code Status Date Activated Date Inactivated Comments Full Code 04/29/2017 10:56 PM 05/06/2017 4:51 PM Care Teams Process Control Specialist Relationship Specialty Start Date End Date Vane Black PA [address] [place] [address] PCP - General Family Practice 05/12/23 Sukhwinder Gerard MD [address] [address] Gastroenterology 03/08/20
--- OUTSIDE RECORDS SUMMARY | 2023-09-26 22:25 | XMS_ITS | Encounter Summary ---
Author Name Unknown Organization [place] Address [address] [place] [address] Care Team Providers Care Remediation Consultant Name Role Phone Lucy Valverde MD Primary Care Provider [phone] Marilou Quigley MD Primary Care Provider [phone] Lola Laurent PA-C Unavailable [phone] Lucy Valverde MD Unavailable [phone] Sukhwinder Gerard MD Unavailable [phone] Sukhwinder Gerard MD Unavailable [phone] Vane Fish APRN MODEL MAKER PLASTIC Unavailable Un available Lucy Valverde MD Unavailable [phone] Lucy Valverde MD Unavailable [phone] Vane Fish APRN MODEL MAKER PLASTIC Unavailable Un available Vane Black Primary Care Provider [phone] Encounter Details Date Type Department Care Team (Late st Contact Info) Description 10/04/2007 Abstract [facility] [address] [place] [address] Lucy Valverde MD [address] [facility] [place] [address] Social History Tobacco Use Types Packs/Day Years Used Date Smoking Tobacco: Never Assessed Sex and Gender Information Value Date Recorded Sex Assigned at Not on file Gender Identity Not on file Sexual Orientation Not on file documented as of this encounter Plan of Treatment Not on file documented as of this encounter Visit Diagnoses Not on filedocumented in this encounter Additional Health Concerns Infection Onset Date Last Indicated Resolved Time Rule Out COVID-19 02/27/2020 02/27/2020 02/28/2020 2:25 PM CDT documented as of this encounter Care Teams Remediation Consultant Relationship Specialty Start Date End Date Lucy Valverde MD [address] [facility] [place] [address] PCP - General 08/23/07 04/28/17 Marilou Quigley MD [facility] [address] [place] [address] PCP - General 04/29/17 05/11/23 Vane Black [place] [facility] [place] [address] PCP - General Family Practice 05/12/23 Lola Laurent PA-C [address] [facility] [place] [address] Assigned PCP 09/23/19 11/18/19 Lucy Valverde MD [address] [facility] [place] [address] Assigned PCP 11/19/19 11/16/20 Sukhwinder Gerard MD [address] [facility] [address] [place], [place] [address] Gastroenterology 03/08/20 Sukhwinder Greard MD [place] [facility] [address] [address] [place], [place] [address] Assigned Gastroenterology Provider 06/07/20 09/06/21 Vane Fish APRN MODEL MAKER PLASTIC Assigned PCP 11/17/20 02/27/21 Lucy Valverde MD [address] [facility] [address] [place] [address] Assigned PCP 02/28/21 07/31/22 Lucy Valverde MD [address] [facility] [address] [address] Assigned PCP 10/10/22 11/13/22 Vane Fish APRN MODEL MAKER PLASTIC Assigned PCP 11/14/22 02/19/23 documented as of this encounter
--- OUTSIDE RECORDS SUMMARY | 2023-09-26 22:25 | XMS_ITS | Clinical Summary ---
Author Name Unknown Organization [place] Address [address] [facility] [place] [address] Care Team Providers Care Depositing Machine Operator Name Role Phone Sukhwinder Gerard MD Unavailable [phone] Vane Black Primary Care Provider [phone] Allergies Active Allergy Reactions Criticality Noted Date Comments B[place] Oil 04/27/2018 Other reaction(s): GI Upset [place] Oil 04/27/2018 Other reaction(s): GI Upset Crab [...] ,08/25/2001,10/25/2000,1999,1999 TDAP Vaccine (Adacel) 05/21/2010 Varicella 05/21/2010,04/26/2000 Family History Medical History Relation Comments Asthma Father Nasal Polyps Father Thyroid Disease Mother Autism Spectrum Disorder Sister 1 Raynaud syndrome Sister 1 Asthma Sister 2 Breast Cancer No family hx of Colon Cancer No family hx of Coronary Artery Disease No family hx of Diabetes No family hx of Relation Status Comments Father Mother Sister 1 Sister 2 Social History Tobacco Use Types Packs/Day Years [...] 12/30/2022 7:22 PM CDT Plan of Treatment Health Maintenance Due Date Last Done Comments ADVANCE CARE PLANNING 1999 ANNUAL REVIEW OF HM ORDERS 1999 HIV SCREENING 2014 HEPATITIS C SCREENING 2017 PAP 2020 DTAP/TDAP/TD IMMUNIZATION (7 - Td or Tdap) 05/21/2020 05/21/2010, 04/29/2004, 10/22/2001, Additional history exists YEARLY PREVENTIVE VISIT 06/03/2022 06/03/2021, 05/28 COVID-19 Vaccine ( season) 2023 06/26/2022, 08/02/2021, 09/27/2020 INFLUENZA VACCINE (#1) 2023 , 08/25/2018, 07/24/2017, Additional history exists CHLAMYDIA SCREENING 09/03/2023 09/03/2022, 01/08/2020, 01/08/2020, Additional history exists HEPATITIS B IMMUNIZATION Completed 000, 04/26/2000, 04/26/2000, Additional history exists Pneumococcal Vaccine: Pediatrics (0 to 5 Years) and At-Risk Patients (6 to 64 Years) Aged Out 04/25/2001, 10/25/2000 No longer eligibl e based on patient's age to complete this topic IPV IMMUNIZATION Completed 04/29/2004, 05/2002, 10/25/2000, Additional history exists MENINGITIS IMMUNIZATION Aged Out 05/21/2010 No l onger eligible based on patient's age to complete this topic HPV IMMUNIZATION Completed 12/14/2014, , 04/20/2014 RSV MONOCLONAL ANTIBODY Aged Out No l onger eligible based on patient's age to complete this topic Advance Directives For more information, please contact: [phone] Latest Code Status on File Code Status Date Activated Date Inactivated Comments Full Code 07/23/2017 10:23 PM 07/26/2017 5:52 PM Code Status History Code Status Date Activated Date Inactivated Comments Full Code 04/29/2017 10:56 PM 05/06/2017 4:51 PM Care Teams Depositing Machine Operator Relationship Specialty Start Date End Date Vane Black PA [address] [place] [address] PCP - General Family Practice 05/12/23 Sukhwinder Gerard MD [address] [address] Gastroenterology 03/08/20
--- OUTSIDE RECORDS SUMMARY | 2023-09-26 22:25 | XMS_ITS | Encounter Summary ---
Author Name Unknown Organization [facility] Address [address] [facility] [place] [address] Care Team Providers Care [facility] Folder Name Role Phone Marilou Quigley MD Primary Care Provider [phone] Sukhwinder Gerard MD Unavailable [phone] Lucy Valverde MD Unavailable [phone] Reason for Visit * Reason Comments Head Injury Headache Encounter Details Date Type Department Care Team (Late st Contact Info) Description 11/06/2022 7:04 PM CDT - 11/06/2022 8:13 PM CDT Emergency [facility] [address] [place] [phone] Kapil Barrientos PA-C [facility] [address] [place] [address] Nausea; Vertigo; Cognitive changes; Headache Discharge Disposition: Home or Self Care Social [...] PM CDT documented as of this encounter Last Filed Vital Signs Vital Sign Reading Time Taken Comments Blood Pressure 120/85 11/06/2022 6:06 PM CDT Pulse 64 11/06/2022 6:06 PM CDT Temperature 37 ??C (98.6 ??F) 11/06/2022 6:06 PM CDT Respiratory Rate 16 11/06/2022 6:06 PM CDT Oxygen Saturation 100% 11/06/2022 6:06 PM CDT Inhaled Oxygen Concentration - - Weight - - Height - - Body Mass Index - - documented in this encounter Discharge Instructions * Discharge Instructions* Kapil Barrientos PA-C - 11/06/2022 7:58 PM CDT Your ongoing symptoms may still be within expectations following a mild traumatic brain injury. We will provide you a note for work to be off until seen by your primary doctor for further direction. You may try meclizine (available at pharmacy) to see if this helps with the vertigo. * Attachments The following attachments cannot be sent through Care Everywhere. * Mild Traumatic Brain Injury (Concussion)? What is (Nepali) documented in this encounter Medications at Time of Discharge Medication Sig Dispensed Refills Start Date End Date drospirenone-ethinyl estradiol (BERYL) 3-0.03 MG tabletIndications:Menorr hagia with regular cycle,Pelvic [...] spasms 0 documented as of this encounter ED Notes * Venessa Foy RN - 11/06/2022 6:09 PM CDT Images from the original note were not included. Pt presents to the ED with complaints of worsening symptoms from concussion diagnosed 10/30. She states she is dizzy, has headache, and shot term memory loss that continues to get worse. She also has noticed mood changes. Pt A&O X 4 and headache 02/22. Pt states she is nauseous and took zofran onthe way here. Triage Assessment Row Name 11/06/22 1808 Triage Assessment (Adult) Airway WDL WDL Respiratory WDL Respiratory WDL WDL Skin Circulation/Temperature WDL Skin Circulation/Temperature WDL WDL Cardiac WDL Cardiac WDL WDL Peripheral/Neurovascular WDL Peripheral Neurovascular WDL X dizzy, headache Cognitive/Neuro/Behavioral WDL Cognitive/Neuro/Behavioral WDL WDL * Kapil Barrientos PA-C - 11/06/2022 5:56 PM CDT History Chief Complaint: Head Injury and Headache HPI Lary Angulo is a 22 year old female with a history of migraine who presents with worsening symptoms following head injury. She explains that a week ago she suffered a concussion while at work. She reports that since then she has had worsening nausea, vertigo, memory issues, and a migraine with right sided vision disturbance. Her current migraine is unlike past ones in Ithat she is more dizzy now. She reports that she has been avoiding screen use but has not taken time off work since her concussion. She denies any recurrent head trauma, numbness, chest pain, shortness of breath, or speech changes. She has been taking Zofran, Tylenol, and Excedrin for her symptoms. She is not taking blood thinners. Independent Historian: None - Patient Only Review of External Notes: None ROS: Review of Systems See HPI Allergies: [place] Oil [place] Oil Crab Extract Allergy Skin Test Fish Oil Medications: Beryl Atarax Zofran Maxalt Zanaflex Epinephrine Imitrex Albuterol Synthroid Mirena Metformin Buspar Lithonate Abilifraul Klonopin Past Medical History: Anxiety Depressive disorder Vertigo Suicidal ideation BPD PTSD Anorexia nervosa Episodic mood disorder Inability to cope Precordial pain Drug abuse Dysmenorrhea Insomnia Hypothyroidism Endometriosis Uterine fibroid PCOS Scoliosis Past Surgical History: RAD resec tonsil/pillars So iris and fusion Gastric surgery GI Endoscopy Family History: Father: Asthma, Nasal polyps Mother: Thyroid disease, Personality disorder Sister: Asthma, Autism, Raynaud syndrome Social History: Patient is accompanied in the ED. PCP: Marilou Quigley Physical Exam Patient Vitals for the past 24 hrs: BP Temp Temp src Pulse Resp SpO2 11/06/22 1806 120/85 98.6 ??F (37 ??C) Temporal 64 16 100 % Physical Exam Constitutional: Pleasant. Cooperative. Eyes: Pupils equally round and reactive HENT: Head is normal in appearance. Oropharynx is normal with moist mucus membranes. Cardiovascular: Regular rate and rhythm and without murmurs. Respiratory: Normal respiratory effort, lungs are clear bilaterally. Musculoskeletal: Full ROM of C spine. Skin: Normal, without rash. Neurologic: Cranial nerves II-XII intact, nl cognition, no focal deficits. Alert and oriented x 3. Normal account review specialist strength. Normal leg raise. Sensation to light touch intact throughout all 4 extremities. 5/5 strength with dorsiflexion and plantarflexion bilaterally. No pronator drift. Normal finger nose finger. Psychiatric: Normal affect. Nursing notes and vital signs reviewed. Emergency Department Course ECG ECG taken at 1943, ECG read at 194 Sinus bradycardia Incomplete right bundle branch block Abnormal ECG Rate 54 bpm. NM interval 162 ms. QRS duration 100 ms. QT/QTc 440/17 ms. P-R-T axes 35 10 11. Laboratory: Labs Ordered and Resulted from Time of ED Arrival to Time of ED Departure CBC WITH PLATELETS AND DIFFERENTIAL - Abnormal Result Value WBC Count 12.8 (*) RBC Count 4.78 Hemoglobin 14.6 Hematocrit 44.3 MCV 93 MCH 30.5 MCHC 33.0 RDW 12.3 Platelet Count 299 % Neutrophils 54 % Lymphocytes 35 % Monocytes 7 % Eosinophils 3 % Basophils 1 % Immature Granulocytes 0 NRBCs per 100 WBC 0 Absolute Neutrophils 6.9 Absolute Lymphocytes 4.4 Absolute Monocytes 0.9 Absolute Eosinophils 0.4 Absolute Basophils 0.1 Absolute Immature Granulocytes 0.0 Absolute NRBCs 0.0 BASIC METABOLIC PANEL - Normal Sodium 137 Potassium 3.8 Chloride 102 Carbon Dioxide (CO2) 26 Anion Gap 9 Urea Nitrogen 14.7 Creatinine 0.71 Calcium 9.6 Glucose 87 GFR Estimate >90 Emergency Department Course & Assessments: Interventions: Medications - No data to display Independent Interpretation (X-rays, CTs, rhythm strip): None Consultations/Discussion of Management or Tests: 1917 I obtained history and examined the patient as noted above. 1999 Discussed results Social Determinants of Health affecting care: None Disposition: The patient was discharged to home. Impression & Plan Medical Decision Making: Lary Angulo is a 22 year old female who presents to ED for evaluation of nausea, vertigo, cognitive issues, headache. Patient notes that about 1 week ago she was at work when she was struck by a falling object to the head. She was evaluated at the time at an outside emergency department had aCT scan obtained which was negative for acute intracranial abnormality per the patient. She has since developed the above symptoms and she feels that they are worsening, prompting presentation to theED for further evaluation. See HPI as above for additional details. Vitals and physical exam as above. Neurologic exam is normal. Lab work obtained prior to my evaluation returns unremarkable. Patient did have EKG performed given her description of using quite a bit of Zofran, no suggestion for prolonged QTc. Discussed with patient option for head CT to rule out any abnormality not noted on initial CT, however patient declines after shared decision making as she has not had any recurrent falls or trauma. We discussed that the symptoms that she is describing can actually be within expectationsgiven the duration of time that has passed since the injury. She also notes that she has been working nonstop since the injury and has not given herself any time to rest. Ultimately, patient is comfortable with discharge to home. We will provide her a note for work to be off of work until she is eladio luated by her primary doctor early next week to ensure improvement of her symptoms. Discussed reasons to return. All questions answered. Patient discharged to home in stable condition. Diagnosis: ICD-10-CM 1. Nausea R11.0 2. Vertigo R42 3. Cognitive changes R41.89 4. Headache R51.9 Discharge Medications: New Prescriptions No medications on file Scribe Disclosure: I, SAROJ VILLAVICENCIO, am serving as a scribe at 7:32 PM on 11/06/2022 to document services personally performed by Kapil Barrientos PA-C based on my observations and the provider's statements to me. This record was created at least in part using electronic voice recognition software, so please excuse any typographical errors. Kapil Barrientos PA-C 11/06/222012 documented in this encounter Plan of Treatment Not on file documented as of this encounter Procedures Procedure Name Priority Date/Time Associated Diagnosis Comments EKG 12-LEAD, TRACING ONLY STAT 11/06/2022 7:43 PM CDT EXTRA TUBE STAT 11/06/2022 6:23 PM CDT EXTRA RED TOP TUBE STAT 11/06/2022 6: 23 PM CDT EXTRA BLUE TOP TUBE STAT 11/06/2022 6 :23 PM CDT CBC WITH PLATELETS AND DIFFERENTIAL STAT 11/06/2022 6:23 PM CDT CBC WITH PLATELETS & DIFFERENTIAL STAT 11/06/2022 6:23 PM CDT BASIC METABOLIC PANEL STAT 11/06/2022 6:23 PM CDT documented in this encounter Results * EKG 12 lead (11/06/2022 7:43 PM CDT) Systolic Blood Pressure mmHg RADIOLOGY RESULTS Diastolic Blood Pressure mmHg RADIOLOGY RESULTS Ventricular Rate 54 BPM RAD IOLOGY RESULTS Atrial Rate 54 BPM RADIOLOG Y RESULTS NM Interval 162 ms RADIOLOG Y RESULTS QRS Duration 100 ms RADIOLO GY RESULTS QT 440 ms RADIOLOGY RESULTS QTc 417 ms RADIOLOGY RESULTS P [place] 35 degrees RADIOLOGY RESULTS R AXIS 10 degrees RADIOLOGY RESULTS T [place] 11 degrees RADIOLOGY RESULTS Interpretation ECG Sinus bradycardia Incomplete right bundle branch block Cannot rule out Anterior infarct , age undetermined Abnormal ECG When compared with ECG of 12-NOV-2018 19:38, Premature ventricular complexes are no longer Present Confirmed by - EMERGENCY ROOM, PHYSICIAN ([id number]), photographic editor FEROZ WITT ([id number]) on 11/09/2022 7:28:05 AM RADIOLOGY RESULTS 11/06/2022 7:43 PM CDT 11/09/2022 7:28 AM CDT Kapil Barrientos PA-C ECG ORDERABLES Performing Organization Address [facility]/ZIP Co de Phone Number RADIOLOGY RESULTS * Extra Red Top Tube (11/06/2022 6:23 PM CDT) Hold Specimen [facility] 11/06/2022 7:32 PM CDT [facility] Blood STRUCTURE OF RIGHT UPPER LIMB / Unknown Venipuncture / Unknown 11/06/2022 6:23 PM CDT 11/06/2022 6:30 PM CDT Kapil Barrientos PA-C LAB - BLOOD ORDERABL ES Performing Organization Address [facility] Co de Phone Number [facility] [address] Lab (1st floor, no room number) [place] [address], [facility] [phone] * Extra Blue Top Tube (11/06/2022 6:23 PM CDT) Hold Specimen [facility] 11/06/2022 7:32 PM CDT [facility] Blood STRUCTURE OF RIGHT UPPER LIMB / Unknown Venipuncture / Unknown 11/06/2022 6:23 PM CDT 11/06/2022 6:30 PM CDT Kapil Medelline PA-C LAB - BLOOD ORDERABL ES Performing Organization Address [facility]/ZIP Co de Phone Number [facility] [address] Lab (1st floor, no room number) [place] [phone], [facility] [phone] * (ABNORMAL) CBC with platelets and differential (11/06/2022 6:23 PM CDT) WBC Count 12.8(H) 4.0 - 11.0 10e3/uL 11/06/2022 6:33 PM CDT [facility] RBC Count 4.78 3.80 - 5.20 10e6/uL 11/06/2022 6:33 PM CDT [facility] Hemoglobin 14.6 11.7 - 15.7 g/dL 11/06/2022 6:33 PM CDT [facility] Hematocrit 44.3 35.0 - 47.0 % 11/06/2022 6:33 PM CDT [facility] MCV 93 78 - 100 fL 11/06/2022 6:33 PM CDT [facility] MCH 30.5 26.5 - 33.0 pg 11/06/2022 6:33 PM CDT [facility] MCHC 33.0 31.5 - 36.5 g/dL 11/06/2022 6:33 PM CDT [facility] RDW 12.3 10.0 - 15.0 % 11/06/2022 6:33 PM CDT [facility] Platelet Count 299 150 - 450 10e3/uL 11/06/2022 6:33 PM CDT [facility] % Neutrophils 54 % 11/06/2022 6:33 PM CDT [facility] % Lymphocytes 35 % 11/06/2022 6:33 PM CDT [facility] % Monocytes 7 % 11/06/2022 6:33 PM CDT [facility] % Eosinophils 3 % 11/06/2022 6:33 PM CDT [facility] % Basophils 1 % 11/06/2022 6:33 PM CDT [facility] % Immature Granulocytes 0 % 11/06/2022 6:33 PM CDT [facility] NRBCs per 100 WBC 0 <1 /100 023 6:33 PM CDT [facility] Absolute Neutrophils 6.9 1.6 - 8.3 10e3/uL 11/06/2022 6:33 PM CDT [facility] Absolute Lymphocytes 4.4 0.8 - 5.3 10e3/uL 11/06/2022 6:33 PM CDT [facility] Absolute Monocytes 0.9 0.0 - 1.3 10e3/uL 11/06/2022 6:33 PM CDT [facility] Absolute Eosinophils 0.4 0.0 - 0.7 10e3/uL 11/06/2022 6:33 PM CDT [facility] Absolute Basophils 0.1 0.0 - 0.2 10e3/uL 11/06/2022 6:33 PM CDT [facility] Absolute Immature Granulocytes 0.0 <=0.4 10e3/uL 11/06/2022 6:33 PM CDT [facility] Absolute NRBCs 0.0 10e3/uL 11/06/2022 6:33 PM CDT [facility] Blood STRUCTURE OF RIGHT UPPER LIMB / Unknown Venipuncture / Unknown 11/06/2022 6:23 PM CDT 11/06/2022 6:30 PM CDT Kapil Barrientos PA-C LAB - BLOOD ORDERABL ES [facility] [address] Lab (1st floor, no room number) [place] [address], [facility] [phone] * Basic metabolic panel (BMP) (11/06/2022 6:23 PM CDT) [facility] Signature Sodium 137 136 - 145 mmol/L 11/06/2022 6:49 PM CDT LABORATORY Potassium 3.8 3.4 - 5.3 mmol/L 11/06/2022 6:49 PM CDT LABORATORY Chloride 102 98 - 107 mmol/L 11/06/2022 6:49 PM CDT LABORATORY Carbon Dioxide (CO2) 26 22 - 29 mmol/L 11/06/2022 6:49 PM CDT LABORATORY Anion Gap 9 7 - 15 mmol/L 11/06/2022 6:49 PM CDT [facility] Urea Nitrogen 14.7 6.0 - 20.0 mg/dL 11/06/2022 6:49 PM CDT LABORATORY Creatinine 0.71 0.51 - 0.95 mg/dL 11/06/2022 6:49 PM CDT LABORATORY Calcium 9.6 8.6 - 10.0 mg/dL 11/06/2022 6:49 PM CDT LABORATORY Glucose 87 70 - 99 mg/dL 11/06/2022 6:49 PM CDT LABORATORY GFR Estimate >90 >60 mL/min/1.7 3m2 11/06/2022 6:49 PM CDT [facility] Comment:eGFR calculated usin 2020 CKD-EPI equation. Blood STRUCTURE OF RIGHT UPPER LIMB / Unknown Venipuncture / Unknown 11/06/2022 6:23 PM CDT 11/06/2022 6:30 PM CDT Kapil Barrientos PA-C LAB - BLOOD ORDERABL ES [facility] Lab [address] [facility] Lab (1st floor, no room number) [place] [address], [facility] [phone] documented in this encounter Visit Diagnoses Diagnosis Nausea Nausea alone Vertigo Dizziness and giddiness Cognitive changes Other signs and symptoms involving cognition Headache documented in this encounter Additional Health Concerns Assessment Noted Time PHQ-9 Depression Total Score: 26 02/19/ 020 3:00 PM CDT documented as of this encounter Care Teams [facility] Folder Relationship Specialty Start Date End Date Marilou Quigley MD [facility] [address], [place] [address] PCP - General 04/29/17 05/11/23 Sukhwinder Gerard MD [address] [id number] Gastroenterology 03/08/20 Lucy Valverde MD [address] [place], [place] [address] Assigned PCP 10/10/22 11/13/22 documented as of this encounter
--- OUTSIDE RECORDS SUMMARY | 2023-09-26 22:25 | XMS_ITS | Encounter Summary ---
Author Name Unknown Organization [facility] Address [address] [facility] [place] [address] Care Team Providers Care Siderographist Name Role Phone Marilou Quigley MD Primary Care Provider [phone] Sukhwinder Gerard MD Unavailable [phone] Vane Fish APRN ACID PURIFIER Unavailable Un available Reason for Visit * Reason Comments Chest Pain Shortness of Breath Encounter Details Date Type Department Care Team (Late st Contact Info) Description 12/30/2022 10:07 PM CDT - 12/31/2022 12:23 AM CDT Emergency [facility] Emergency Dept [address] [place] [address] Vasquez Abdullahi MD [facility] [address] [place], [place] [id number] Chest pain, unspecified type Discharge Disposition: Home or Self Care Social [...] suspected to have Coronavirus/COVID-19? No / Unsure 12/30/2022 7:11 PM CDT documented as of this encounter [...] Mass Index 28.89 12/30/2022 7:22 PM CDT documented in this encounter Discharge Instructions * Discharge Instructions* Vasquez Abdullahi MD - 12/31/2022 12:09 AM CDT Discharge Instructions Chest Pain You have been seen today for chest pain or discomfort. At this time, your provider has found no signs that your chest pain is due to a serious or life- threatening condition, (or you have declined more testing and/or admission to the hospital). However, sometimes there is a serious problem that doesnot show up right away. Your evaluation today may not be complete and you may need further testing and evaluation. Generally, every Emergency Department visit should have a follow-up clinic visit with either a primary or a specialty clinic/provider. Please follow-up as instructed by your emergency provider today. Return to the Emergency Department if: Your chest pain changes, gets worse, starts to happen more often, or comes with less activity. You are newly short of breath. You get very weak or tired. You pass out or faint. You have any new symptoms, like fever, cough, numb legs, or you cough up blood. You have anything else that worries you. Until you follow-up with your regular provider, please do the following: If you have questions, contact your regular provider. Follow-up with your regular provider/clinic as directed; this is very important. If you were given a prescription for medicine here today, be sure to read all of the information (including the package insert) that comes with your prescription. This will include important information about the medicine, its side effects, and any warnings that you need to know about. The pharmacist who fills the prescription can provide more information and answer questions you may have about the medicine. If you have questions or concerns that the pharmacist cannot address, please call or return to the Emergency Department. Remember that you can always come back to the Emergency Department if you are not able to see your regular provider in the amount of time listed above, if you get any new symptoms, or if there is anything that worries you. documented in this encounter Medications at Time [...] as of this encounter ED Notes * Russ Khan RN - 12/30/2022 11:43 PM CDT Pt back in room from [facility] at this time. * Nam Menezes RN - 12/30/2022 7:25 PM CDT Images from the original note were not included. Pt ate THC edibles (approx 15 mg) on Wednesday, took Ativan at same time. Pt states that since she hashad L side anterior chest pain and dyspnea. Pt states she feels suly her lungs are wet. Triage Assessment Row Name 12/30/221924 Respiratory WDL Respiratory WDL X;cough dyspnea Skin Circulation/Temperature WDL Skin Circulation/Temperature WDL WDL Cardiac WDL Cardiac WDL X;chest pain Chest Pain Assessment Chest Pain Location anterior chest, left Chest Pain Radiation neck Peripheral/Neurovascular WDL Peripheral Neurovascular WDL WDL Cognitive/Neuro/Behavioral WDL Cognitive/Neuro/Behavioral WDL WDL * Vasquez Abdullahi MD - 12/30/2022 7:11 PM CDT History Chief Complaint: Chest pain and lower abdominal pain The history is provided by the patient. Lary Angulo is a 22 year old female with a history of depression, anxiety and vertigo who presents with chest pain and lower abdominal pain. On Wednesday the patient had 15 mg of edible marijuana,clonazepam and kratom. She uses all three regularly. She had an episode of turning blue, being cold, and feeling lethargic.The patient did not hit her head or lose consciousness. She called her friend and according to her friend she was hard to understand. Since her episode, she has not used any ofthe three medications. Additionally, since her epsiode she has been have sharp central chest pain that has been intermittent that has not radiated. She also has been feeling tightness on her chest and throat. She has not been struggling with swallowing and breathing, but reports difficulty taking adeep breath. She reports some lower abdominal pain. She does not have any symptoms of respiratory infection. She has been sexual active but denies any discharge, dysuria. No concern for STIs or . Independent Historian: Patient ROS: Review of Systems Constitutional: Positive for chills. HENT: Negative for trouble swallowing. Respiratory: Positive for chest tightness. Negative for shortness of breath. Cardiovascular: Positive for chest pain. Gastrointestinal: Positive for abdominal pain. Genitourinary: Negative for dysuria and vaginal discharge. Neurological: Negative for loss of consciousness. A 10 point ROS was obtained and negative except as noted here and in HPI Allergies: [place] Oil [place] Oil Crab Extract Allergy Skin Test Fish Oil Lactose Medications: Mirena Imitrex Maxalt Atarax Levothyroxine Epipen Metformin Abilify Klonopin Lithonate Inderal LA Past Medical History: Depression Anxiety Bipolar disorder with psychotic features Migraine Borderline personality disorder PTSD PCOS Scoliosis Hypothyroidism Endometriosis Anorexia Past Surgical History: Back surgery Tonsillectomy Gastric surgery Esophagogastroduodenoscopy Colonoscopy Family History: Father- allergies, asthma Mother- personality disorder Sister- asthma, autism spectrum disorder Social History: The patient presents to the ED with a friend via private vehicle. PCP: Marilou Quigley Physical Exam Patient Vitals for the past 24 hrs: BP Temp Temp src Pulse Resp SpO2 Height Weight 12/31/22 0001 -- -- -- -- -- 100 % -- -- 12/30/22 2330 107/75 -- -- 61 -- 100 % -- -- 12/30/22 2300 100/72 -- -- 57 -- 100 % -- -- 12/30/22 2241 -- -- -- -- -- 100 % -- -- 12/30/22 2240 107/74 -- -- 63 -- -- -- -- 12/30/22 1922 (!) 139/95 96.9 ??F (36.1 ??C) Temporal 61 18 100 % 1.727 m (5' 8) 86.2 kg (190 lb) Physical Exam VS: Reviewed per above HENT: Mucous membranes moist, no nuchal rigidity EYES: sclera anicteric CV: Rate as noted, regular rhythm. RESP: Effort normal. Breath sounds are normal bilaterally. GI: no tenderness/rebound/guarding, not distended. NEURO: GCS 15, cranial nerves II through XII are intact, 5 out of 5 strength in all 4 extremities, sensation is intact light touch in all 4 extremities MSK: No deformity of the extremities SKIN: Warm and dry Emergency Department Course ECG ECG taken at 1924, ECG read at 193 Normal sinus rhythm. Incomplete right bundle branch block. Nonspecific T wave abnormality. AbnormalECG. No changes as compared to prior, dated 10/27/22.. Rate 62 bpm. WI interval 158 ms. QRS duration 92 ms. QT/QTc 396/401 ms. P-R-T axes 30 -7 11. Imaging: Chest XR, PA & LAT Final Result IMPRESSION: Cardiomediastinal silhouette stable. Hardware thoracic spine. No focal consolidation orpleural effusion. Report per radiology Laboratory: Labs Ordered and Resulted from Time of ED Arrival to Time of ED Departure TROPONIN T, HIGH SENSITIVITY - Normal Result Value Troponin T, High Sensitivity <6 COMPREHENSIVE METABOLIC PANEL - Normal Sodium 141 Potassium 4.2 Chloride 106 Carbon Dioxide (CO2) 23 Anion Gap 12 Urea Nitrogen 11.0 Creatinine 0.71 Calcium 9.6 Glucose 88 Alkaline Phosphatase 68 AST 13 ALT 11 Protein Total 7.1 Albumin 4.1 Bilirubin Total 0.2 GFR Estimate >90 HCG QUALITATIVE - Normal hCG Serum Qualitative Negative D DIMER QUANTITATIVE - Normal D-Dimer Quantitative <0.27 CBC WITH PLATELETS AND DIFFERENTIAL WBC Count 10.4 RBC Count 4.83 Hemoglobin 15.0 Hematocrit 45.0 MCV 93 MCH 31.1 MCHC 33.3 RDW 12.1 Platelet Count 305 % Neutrophils 44 % Lymphocytes 43 % Monocytes 7 % Eosinophils 5 % Basophils 1 % Immature Granulocytes 0 NRBCs per 100 WBC 0 Absolute Neutrophils 4.6 Absolute Lymphocytes 4.4 Absolute Monocytes 0.7 Absolute Eosinophils 0.5 Absolute Basophils 0.1 Absolute Immature Granulocytes 0.0 Absolute NRBCs 0.0 Emergency Department Course & Assessments: Interventions: None Assessments: 2226 I examined the patient and reviewed the history above Consultations/Discussion of Management or Tests: None Social Determinants of Health affecting care: None Disposition: The patient was discharged to home. Impression & Plan Medical Decision Making: Lary Angulo presented to the ER with chest pain. A broad workup did not reveal a specific cause of the patient's pain. CXR did not reveal wide mediastinum and nature of pain not c/w aortic dissection. No radiographic evidence of pneumothorax nor PNA either. Hx and lack of pneumomediastinum onCXR make boerhaave's syndrome unlikely. Based on negative ddimer and lower pretest probability, PE was also deemed unlikely. ECG did not show signs of STEMI nor other specific signs of ischemia. Serial troponin testing was negative, thus no signs of acute ND. Hx is also not consistent with unstableangina. Nature of pain in conjunction with reassuring ECG and negative troponin makes pericarditis and myocarditis unlikely as well. Recommended close primary care follow-up as well as abstinence from substance abuse. Return precautions discussed prior to discharge. Diagnosis: ICD-10-CM 1. Chest pain, unspecified type R07.9 Scribe Disclosure: VIRGINIA Azul, am serving as a scribe at 11:40 PM on 12/30/2022 to document services personally performed by Vasquez Abdullahi MD based on my observations and the provider's statements to me. 12/30/2022 Vasquez Abdullahi MD I, Julia Morse, am serving as a scribe dog handler or trainer at 11:29 PM on 12/30/2022 to document services personally performed by Vasquez Abdullahi MD based on my observations and the provider's statements to me. Vasquez Abdullahi MD 12/31/22 0254 documented in this encounter Plan of Treatment Not on file documented as of this encounter Procedures Procedure Name Priority Date/Time Associated Diagnosis Comments XR CHEST 2 VIEWS STAT 12/30/2022 11:4 2 PM CDT HCG QUALITATIVE STAT 12/30/2022 10:54 PM CDT EXTRA TUBE STAT 12/30/2022 7:31 PM CDT EXTRA BLUE TOP TUBE STAT 12/30/2022 7 :31 PM CDT CBC WITH PLATELETS AND DIFFERENTIAL STAT 12/30/2022 7:31 PM CDT TROPONIN T, HIGH SENSITIVITY STAT 12/30/2022 7:31 PM CDT CBC WITH PLATELETS & DIFFERENTIAL STAT 12/30/2022 7:31 PM CDT D DIMER QUANTITATIVE STAT 12/30/2022 7:31 PM CDT COMPREHENSIVE METABOLIC PANEL STAT 12/30/2022 7:31 PM CDT EKG 12-LEAD, TRACING ONLY STAT 12/30/2022 7:25 PM CDT documented in this encounter Results * Chest XR, PA & LAT (12/30/2022 11:42 PM CDT) Anatomical Region Laterality Modality Chest Digital Radiogra phy 12/30/2022 11:4 2 PM CDT Impressions 12/30/2022 11:52 PM CDT IMPRESSION: Cardiomediastinal silhouette stable. Hardware thoracic spine. No focal consolidation or pleural effusion. Narrative 12/30/2022 11:52 PM CDT EXAM: XR CHEST 2 VIEWS LOCATION: [facility] DATE/TIME: 12/30/2022 11:42 PM CDT INDICATION: chest pain COMPARISON: 03/18/2022 Procedure Note Regine Ruiz MD, MD - 12/30/2022 EXAM: XR CHEST 2 VIEWS LOCATION: [facility] DATE/TIME: 12/30/2022 11:42 PM CDT INDICATION: chest pain COMPARISON: 03/18/2022 IMPRESSION: Cardiomediastinal silhouette stable. Hardware thoracic spine.No focal consolidation or pleural effusion. Vasquez Abdullahi MD IMG DIAGNOSTIC IMAGI NG ORDERABLES * HCG QUALitative (blood) (12/30/2022 10:54 PM CDT) hCG Serum Qualitative Negative Negative DEEPIKA 12/30/2022 11:09 PM CDT LABORATORY Comment:This test is for scr eening purposes. Results should be interpreted along with the clinical picture. Confirmation testing is available if warranted by ordering [id number], HCG Quantitative . Blood BLOOD SPECIMEN / Unknown Venipuncture / Unknown 12/30/2022 10:54 PM CDT 12/30/2022 10:58 PM CDT Vasquez Abdullahi MD LAB - BLOOD ORDERABL ES LABORATORY [facility] [address], [address] [place] [address], [facility] [phone] * D dimer quantitative (12/30/2022 7:31 PM CDT) [facility] D-Dimer Quantitative <0.27 0.00 - 0.50 ug/mL FEU 12/30/2022 11:19 PM CDT LABORATORY Blood STRUCTURE OF RIGHT UPPER LIMB / Unknown Venipuncture / Unknown 12/30/2022 7:31 PM CDT 12/30/2022 7:37 PM CDT Narrative LABORATORY - 12/30/2022 11:19 PM CDT This D-dimer assay is intended for use in conjunction with a clinical pretest probability assessment model to exclude pulmonary embolism (PE) and deep venous thrombosis (DVT) in outpatients suspected of PE or DVT. The cut-off value is 0.50 ug/mL FEU. Vasquez Abdullahi MD LAB - BLOOD ORDERABL ES [facility] [address], [address] [place] [address], [facility] [phone] * Extra Blue Top Tube (12/30/2022 7:31 PM CDT) [facility] Hold Specimen JIC 12/30/2022 8:46 PM CDT LABORATORY Blood STRUCTURE OF RIGHT UPPER LIMB / Unknown Venipuncture / Unknown 12/30/2022 7:31 PM CDT 12/30/2022 7:37 PM CDT Vasquez Abdullahi MD LAB - BLOOD ORDERABL ES [facility] [address], [address] [place] [address], [place] [phone] * CBC with platelets and differential (12/30/2022 7:31 PM CDT) [facility] WBC Count 10.4 4.0 - 11.0 10e3/uL 12/30/2022 7:39 PM CDT LABORATORY RBC Count 4.83 3.80 - 5.20 10e6/uL 12/30/2022 7:39 PM CDT LABORATORY Hemoglobin 15.0 11.7 - 15.7 g/dL 12/30/2022 7:39 PM CDT LABORATORY Hematocrit 45.0 35.0 - 47.0 % 12/30/2022 7:39 PM CDT LABORATORY MCV 93 78 - 100 fL 12/30/2022 7:39 PM CDT LABORATORY MCH 31.1 26.5 - 33.0 pg 12/30/2022 7:39 PM CDT LABORATORY MCHC 33.3 31.5 - 36.5 g/dL 12/30/2022 7:39 PM CDT LABORATORY RDW 12.1 10.0 - 15.0 % 12/30/2022 7:39 PM CDT LABORATORY Platelet Count 305 150 - 450 10e3/uL 12/30/2022 7:39 PM CDT LABORATORY % Neutrophils 44 % 12/30/2022 7:39 PM CDT LABORATORY % Lymphocytes 43 % 12/30/2022 7:39 PM CDT LABORATORY % Monocytes 7 % 12/30/2022 7:39 PM CDT LABORATORY % Eosinophils 5 % 12/30/2022 7:39 PM CDT LABORATORY % Basophils 1 % 12/30/2022 7:39 PM CDT LABORATORY % Immature Granulocytes 0 % 12/30/2022 7:39 PM CDT LABORATORY NRBCs per 100 WBC 0 <1 /100 023 7:39 PM CDT LABORATORY Absolute Neutrophils 4.6 1.6 - 8.3 10e3/uL 12/30/2022 7:39 PM CDT LABORATORY Absolute Lymphocytes 4.4 0.8 - 5.3 10e3/uL 12/30/2022 7:39 PM CDT LABORATORY Absolute Monocytes 0.7 0.0 - 1.3 10e3/uL 12/30/2022 7:39 PM CDT LABORATORY Absolute Eosinophils 0.5 0.0 - 0.7 10e3/uL 12/30/2022 7:39 PM CDT LABORATORY Absolute Basophils 0.1 0.0 - 0.2 10e3/uL 12/30/2022 7:39 PM CDT LABORATORY Absolute Immature Granulocytes 0.0 <=0.4 10e3/uL 12/30/2022 7:39 PM CDT LABORATORY Absolute NRBCs 0.0 10e3/uL 12/30/2022 7:39 PM CDT LABORATORY Blood BLOOD SPECIMEN / Unknown Venipuncture / Unknown 12/30/2022 7:31 PM CDT 12/30/2022 7:37 PM CDT Vasquez Abdullahi MD LAB - BLOOD ORDERABL ES LABORATORY [facility] [address], [address] [place] [address], [facility] [phone] * Comprehensive metabolic panel (12/30/2022 7:31 PM CDT) Sodium 141 136 - 145 mmol/L [facility]2022 8:[facility] Potassium 4.2 3.4 - 5.3 mmol/L 12/30/2022 8:03 PM T LABORATORY Chloride 106 98 - 107 mmol/L 12/30/2022 8:03 PM [facility] LAB[facility] Carbon Dioxide (CO2) 23 22 - 29 mmol/L 12/30/2022 8:03 PM [facility] LAB[facility]AT[facility] Anion Gap 12 7 - 15 mmol/L 12/30/2022 8:03 PM T LABORATORY Urea Nitrogen 11.0 6.0 - 20.0 mg/dL 12/30/2022 8:03 PM T LABORATORY Creatinine 0.71 0.51 - 0.95 mg/dL 12/30/2022 8:03 PM T LABORATORY Calcium 9.6 8.6 - 10.0 mg/dL 12/30/2022 8:03 PM T LABORATORY Glucose 88 70 - 99 mg/dL 12/30/2022 8:03 PM T LABORATORY Alkaline Phosphatase 68 35 - 104 U/L 12/30/2022 8:03 PM T LABORATORY AST 13 10 - 35 U/L 12/30/2022 8:03 PM CDT LABORATORY ALT 11 10 - 35 U/L 12/30/2022 8:03 PM CDT LABORATORY Protein Total 7.1 6.4 - 8.3 g/dL 12/30/2022 8:03 PM CDT LABORATORY Albumin 4.1 3.5 - 5.2 g/dL 12/30/2022 8:03 PM CDT LABORATORY Bilirubin Total 0.2 <=1.2 mg/dL 12/30/2022 8:03 PM CDT LABORATORY GFR Estimate >90 >60 mL/min/1.7 3m2 12/30/2022 8:03 PM CDT LABORATORY Comment:eGFR calculated us2020 CKD-EPI equation. Blood BLOOD SPECIMEN / Unknown Venipuncture / Unknown 12/30/2022 7:31 PM CDT 12/30/2022 7:37 PM CDT Vasquez Abdullahi MD LAB - BLOOD ORDERABL ES LABORATORY [facility] [address], [address] [place] [address], [facility] [phone] * Troponin T, High Sensitivity (12/30/2022 7:31 PM CDT) [facility] Troponin T, High Sensitivity <6 <=14 ng/L 12/30/2022 8:03 PM CDT LABORATORY Comment: Either a High Sensitivity Troponin T baseline (0 hours) value = 100 ng/L, or an increase in High Sensitivity Troponin T = 7 ng/L at 2 hours compared to 0 hours (2-0 hours), suggests myocardial injury, and urgent clinical attention is required. ?? If the 2-0 hours increase is <7 ng/L, a High Sensitivity Troponin T result above gender-specific reference ranges warrants further evaluation. Recommendations for further evaluation include correlation with clinical decision-making tool (e.g., HEART), a 3rd High Sensitivity Troponin T test 2 hours after the 2nd (a 20% change from baseline would represent concern), admission for observation, close PCC/cardiology follow-up, or urgent outpatient provocative testing. Blood BLOOD SPECIMEN / Unknown Venipuncture / Unknown 12/30/2022 7:31 PM CDT 12/30/2022 7:37 PM CDT Vasquez Abdullahi MD LAB - BLOOD ORDERABL ES LABORATORY [facility] [address], [address] [place] [address], [facility] [phone] * EKG 12 lead (12/30/2022 7:25 PM CDT) Systolic Blood Pressure mmHg RADIOLOGY RESULTS Diastolic Blood Pressure mmHg RADIOLOGY RESULTS Ventricular Rate 62 BPM RAD IOLOGY RESULTS Atrial Rate 62 BPM RADIOLOG Y RESULTS WI Interval 158 ms RADIOLOG Y RESULTS QRS Duration 92 ms RADIOLO GY RESULTS QT 396 ms RADIOLOGY RESULTS QTc 401 ms RADIOLOGY RESULTS P [place] 30 degrees RADIOLOGY RESULTS R AXIS -7 degrees RADIOLOGY RESULTS T [place] 11 degrees RADIOLOGY RESULTS Interpretation ECG Sinus rhythm Incomplete right bundle branch block Nonspecific T wave abnormality Abnormal ECG When compared with ECG of 06-NOV-2022 19:43, Nonspecific T wave abnormality, worse in Anterior leads Confirmed by GENERATED REPORT, COMPUTER ([id number]), supervising editor trailer Ajay Murillo ([id number]) on 12/30/2022 7:40:14 PM RADIOLOGY RESULTS 12/30/2022 7:25 PM CDT 12/30/2022 7:40 PM CDT Vasquez Abdullahi MD ECG ORDERABLES RADIOLOGY RESULTS documented in this encounter Visit Diagnoses Diagnosis Chest pain, unspecified type documented in this encounter Additional Health Concerns Assessment Noted Time PHQ-9 Depression Total Score: 26 020 3:00 PM CDT documented as of this encounter Care Teams Siderographist Relationship Specialty Start Date End Date Marilou Quigley MD [facility] [address] [place] [address] PCP - General 04/29/17 05/11/23 Sukhwinder Gerard MD [address] [address] Gastroenterology 03/08/20 Vane Fish APRN ACID PURIFIER Assigned PCP 11/14/22 02/19/23 documented as of this encounter
--- OUTSIDE RECORDS SUMMARY | 2023-09-26 22:25 | XMS_ITS | Encounter Summary ---
Author Name Unknown Organization [facility] Address [address] [place] [address] Care Team Providers Care Private Branch Exchange Repairer Name Role Phone Sukhwinder Gerard MD Unavailable [phone] Vane Black Primary Care Provider [phone] Reason for Visit * Diagnostic Imaging Ultrasound (Routine) - Pending Review Specialty Diagnoses / Procedures Referred By Heide armando Referred To Contact Radiology. Diagnoses Lump of breast, right Discharge from right nipple Procedures US Breast Bilateral Limited 1-3 Quadrants US Breast Right Latoya Zapata NP [facility] [address] [place] [address] Referral ID Status Reason Start Date Expiration Date V isits Requested Visits Authorized [id number] Pending Review 05/06/2023 05/05/2024 1 1 Encounter Details Date Type Department Care Team (Latest Contact Info) Description 05/12/2023 2:33 PM CDT - 05/12/2023 11:59 PM CDT Hospital Encounter [facility] [address] [facility] [place] [address] Latoya Zapata NP [facility] [address] [place] [address] Lump of breast, right; Discharge [...] Procedure Name Priority Date/Time Associated Diagnosis Comments US BREAST BILATERAL LIMITED 1-3 QUADRANTS Routine 05/12/2023 3:20 PM CDT Lump of breast, right Discharge from right nipple documented in this encounter Results * US Breast Bilateral Limited 1-3 Quadrants (05/12/2023 3:20 PM CDT) Anatomical Region Laterality Modality Breast Bilateral Ultrasound Impressions 05/12/2023 3:33 PM CDT IMPRESSION: BI-RADS CATEGORY: 1 - ??NEGATIVE RECOMMENDED FOLLOW-UP: Annual Mammography Beginning at Age 40. The patient was given the results of the examination. MARIA TERESA MCMULLEN MD Narrative 05/12/2023 3:33 PM CDT Bilateral breast ultrasound Comparisons: None History: Bilateral spontaneous nipple discharge as well as tender lump in the RIGHT breast and prominent vascularity in both breasts. FINDINGS: ?? Focussed ultrasound of the retroareolar RIGHT breast, lower outer RIGHT breast and upper inner RIGHT breast as well as the retroareolar LEFT breast, lower inner LEFT breast and upper inner LEFT breast was performed. Normal fibroglandular tissue is seen at the patient's areas of concern. No concerning findings identified. Procedure Note Maria Teresa Mcmullen MD - 05/12/2023 Bilateral breast ultrasound Comparisons: None History: Bilateral spontaneous nipple discharge as well as tender lump in the RIGHT breast and prominent vascularity in both breasts. FINDINGS: Focussed ultrasound of the retroareolar RIGHT breast, lower outer RIGHT breast and upper inner RIGHT breast as well as the retroareolar LEFT breast, lower inner LEFT breast and upper inner LEFT breast was performed. Normal fibroglandular tissue is seen at the patient's areas of concern. No concerning findings identified. IMPRESSION: BI-RADS CATEGORY: 1 - NEGATIVE RECOMMENDED FOLLOW-UP: Annual Mammography Beginning at Age 40. The patient was given the results of the examination. MARIA TERESA MCMULLEN MD Latoya Zapata NP IMG US ORDERABLES documented in this encounter Visit Diagnoses Diagnosis Lump of breast, right Lump or mass in breast Discharge from right nipple documented in this encounter Additional Health Concerns Assessment Noted Time PHQ-9 Depression Total Score: 26 02/19/ 020 3:00 PM CDT documented as of this encounter Care Teams Private Branch Exchange Repairer Relationship Specialty Start Date End Date Vane Black PA [address] [place] [address] PCP - General Family Practice 05/12/23 Sukhwinder Gerard MD [address] [address] Gastroenterology 03/08/20 documented as of this encounter
--- OUTSIDE RECORDS SUMMARY | 2023-09-26 22:25 | XMS_ITS | Encounter Summary ---
Author Name Unknown Organization [place] Address formerly [facility] [place] [address] Care Team Providers Care Fashion Model Name Role Phone Marilou Quigley MD Primary Care Provider [phone] Sukhwinder Gerard MD Unavailable [phone] Vane Fish APRN [employer] Unavailable Un available Encounter Details Date Type Department Care Team (Latest Contact Info) Description 12/30/2022 Travel Social History Tobacco Use Types Packs/Day [...] documented as of this encounter Care Teams Fashion Model Relationship Specialty Start Date End Date Marilou Quigley MD [facility] [address] [place] [address] PCP - General 04/29/17 05/11/23 Sukhwinder Gerard MD [address] [address] Gastroenterology 03/08/20 Vane Fish APRN [employer] Assigned PCP 11/14/22 02/19/23 documented as of this encounter
[2023-09-26 22:31] LABS: Appearance Urine Clear (Clear); Bilirubin Urine Negative (Negative); Blood Urine Trace-intact (Negative); Color Urine Yellow (Yellow); Glucose Urine Negative (Negative); Ketones Urine Negative (Negative); Leukocyte Esterase Urine 1+ (Negative); Nitrite Urine Negative (Negative); Protein Urine Negative (Negative); Specific Gravity Urine 1.015 (1.000-1.030); Urobilinogen Urine 0.2 (0.2-1.0); pH Urine 5.5 (5.0-8.5)
[2023-09-26 22:43] LABS: RBC Urine 0-2 (0-2)
--- NOTE | 2023-09-26 22:43 | ED.GENADULT ---
HPI - General Adult General Chief complaint: Fever Stated complaint: fever, left flank pain Time Seen by Provider: 09/26/23 21:53 History of Present Illness HPI narrative: Patient is a 23-year-old woman who presents with urinary frequency and dysuria. She has had symptoms for last 2-3 days. She has had no overt hematuria. No nausea no vomiting no other abdominal symptoms. Patient states she has an IUD and is not . She has had frequent UTIs in the past and her symptoms are very much compatible with a UTI. Related Data Home Medications Medication Instructions Recorded Confirmed albuterol sulfate .ROUTE 05/26/22 clonazepam 0.5 mg tablet mg 05/26/22 levothyroxine 50 mcg tablet mcg 05/26/22 lithium carbonate 300 mg capsule mg 05/26/22 sumatriptan succinate 100 mg tablet mg PO 05/26/22 Previous Rx's Medication Instructions Recorded cephalexin 500 mg capsule 500 mg PO TID 6 days #18 caps 12/18/22 fluconazole 150 mg tablet 150 mg PO DAILY #1 tab 12/18/22 Allergies Allergy/AdvReac Type Severity Reaction Status Date / Time trazodone Allergy Intermediate Verified 09/26/23 21:47 [facility] Medical History (Updated 09/26/23 @ 22:49 by Clinton Hi MD) Allergic reaction to allergy skin test ?T78.49XA - Other allergy, initial encounter (ICD-10) Surgical History (Updated 05/14/23 @ 15:03 by Annette Morgan) History of tonsillectomy (2009) ?Z90.89 - Acquired absence of other organs (ICD-10) History of spinal fusion for scoliosis (2011) ?Z98.1 - Arthrodesis status (ICD-10) ?Z87.39 - Personal history of other diseases of the musculoskeletal system and connective tissue (ICD-10) Family History (Updated 05/14/23 @ 15:11 by Annette Morgan) Mother Thyroid disease Father Asthma Depression Sister Asthma Autism spectrum disorder Maternal Grandfather Depression High cholesterol High blood pressure Maternal Grandmother Depression High cholesterol High blood pressure Other Coronary artery disease Social History Smoking Status: Current every day smoker Do you use any of these nicotine containing products: Vaping Products Second hand tobacco smoke exposure: No How often do you have a drink containing alcohol: 2-4 times a month AUDIT-C Alcohol total score: 2 Non-prescribed substance use: denies use service: No Exam Narrative: Exam Narrative: EXAM GENERAL: Patient appears comfortable and well. EYES: No scleral icterus. ENT: Tympanic membranes and oropharynx normal. THYROID: no thyroid nodules or thyromegaly. LYMPH: No supraclavicular or cervical lymphadenopathy. SKIN: Visible skin seen during exam normal or with benign process only. EXT: No dependent lower extremity pedal edema. HEART: Regular rate and rhythm with no murmurs, rubs, or gallops. LUNGS: Clear to auscultation bilaterally with no crackles or wheezes. ABD: Soft, non tender, non distended. PSYCH: Good eye contact, speech is not pressured. Const: Vital Signs, click to edit/add: Vital Signs - 24 hr 09/26/23 21:47 Temperature 98.4 F Pulse Rate [Left P ulse Oximeter] 93 Respiratory Rate 16 Blood Pressure [Ri ght Upper Arm] 128/82 Pulse Oximetry 98 Oxygen Delivery Me thod Room Air Course Course ED Course: Patient seen examined. UTIs confirmed on urinalysis. At this time I did place her on Bactrim Double Strength for the next 5 days. Her exam is otherwise unremarkable. I did recommend Tylenol rest and fluids will send her urine for culture. Vital Signs Vital signs: Initial Vital Signs Temperature 98.4 F 09/26/23 21:47 Temperature Source Temporal Artery Scan 09/26/23 21:47 Pulse Rate 93 09/26/23 21:47 Pulse Rhythm Regular 09/26/23 21:47 Respiratory Rate 16 09/26/23 21:47 Blood Pressure 128/82 09/26/23 21:47 Blood Pressure Mean 97 09/26/23 21:47 Blood Pressure Position Sitting 09/26/23 21:47 Pulse Oximetry 98 09/26/23 21:47 Oxygen Delivery Method Room Air 09/26/23 21:47 Vital Signs Temperature 98.4 F 09/26/23 21:47 Pulse Rate 93 09/26/23 21:47 Respiratory Rate 16 09/26/23 21:47 Blood Pressure 128/82 09/26/23 21:47 Pulse Oximetry 98 09/26/23 21:47 Oxygen Delivery Method Room Air 09/26/23 21:47 Temperature 98.4 F 09/26/23 21:47 Pulse Rate 93 09/26/23 21:47 Respiratory Rate 16 09/26/23 21:47 Blood Pressure 128/82 09/26/23 21:47 Pulse Oximetry 98 09/26/23 21:47 Oxygen Delivery Method Room Air 09/26/23 21:47 Medical Decision Making Lab Data Labs: Lab Results 09/26/23 Range/Units 22:10 Urine Color Yellow (Yellow) Urine Appearance Clear (Clear) Urine pH 5.5 (5.0-8.5) Ur Specific [place] 1.015 (1.000-1.030) Urine Protein Negative (Negative) Urine Glucose (UA) Negative (Negative) Urine Ketones Negative (Negative) Urine Blood Trace-intact A (Negative) Urine Nitrite Negative (Negative) Urine Bilirubin Negative (Negative) Urine Urobilinogen 0.2 (0.2-1.0) Ur Leukocyte Esterase 1+ A (Negative) Urine RBC 0-2 (0-2) Urine WBC 2-5 (0-5) Ur Squamous Epith Cells Few (None-Few) Urine Bacteria Moderate A (None) Discharge Plan Discharge Clinical Impression: UTI (urinary tract infection) Patient Disposition: Home, Self-Care Condition: Stable Instructions: Urinary Tract Infection in Women (ED) Additional Instructions: Bactrim as directed Tylenol Rest Fluids Activity Level: No Restrictions Discharge Diet: Regular Prescriptions: No Action albuterol sulfate .ROUTE sumatriptan succinate 100 mg tablet PO clonazepam 0.5 mg tablet lithium carbonate 300 mg capsule Patient Comments: TAKE 1 CAPSULE BY MOUTH AT BEDTIME FOR 3 DAYS. THEN INCREASE TO 2 CAPSULES BY MOUTH AT BEDTIME levothyroxine 50 mcg tablet cephalexin 500 mg capsule 500 mg PO TID 6 Days Qty: 18 0RF fluconazole 150 mg tablet 150 mg PO DAILY Qty: 1 1RF Follow Up/Referrals: Vane Black PA-C [Primary Care Provider] - Stand Alone Forms: [employer] Info Instructions
[2023-09-26 22:44] LABS: Bacteria Urine Moderate; Squamous Epithelial Cell Urine Few (None-Few)
== END 2023-09-26 23:02 | disposition home or self-care (01) ==
PROVIDERS: Emergency Provider Internal Medicine; PCP Student in an Organized Health Care Education/Training Program
DX: N39.0 Urinary tract infection, site not specified (principal)
CPT/HCPCS: 81003; 81015; 87086; 99283

== ENCOUNTER 2024-02-05 00:38 | Emergency (ER) | payer MEDICAID, SELFPAY ==
[2024-02-05 00:44] VITALS: BP 156/80; PULSE 80; RESP 16; TEMP 36.6; O2SAT 98; BMI 27.4
--- NOTE | 2024-02-05 00:48 | CRLHL7_ITS ---
For Patients: As a result of the Cures Act, medical imaging exams and procedure reports are released immediately into your electronic medical record. You may view this report before your referring provider. If you have questions, please contact your health care provider. INDICATION: Pain, swelling. TECHNIQUE: Right wrist 3 view. COMPARISON: None. FINDINGS: No acute fracture or dislocation. Joint spaces are preserved. Soft tissues are unremarkable. IMPRESSION: No acute findings. Dictated by Jonna Mireles MD @ 02/05/2024 1:52:49 AM (Electronically Signed)
--- NOTE | 2024-02-05 00:49 | ED.GENADULT ---
HPI - General Adult General Chief complaint: Extremity Pain/Injury, Upper Stated complaint: Sprained her R hand Time Seen by Provider: 02/05/24 00:48 History of Present Illness HPI narrative: Patient is a 23-year-old woman who comes in today with 3 weeks of pain in the right wrist. The pain is over the medial aspect of the wrist is worsened with movement. She has had minimal swelling. She has had no recent injuries. She has no other significant pain. She does take lithium for bipolar disorder is unable take [id number] anti-inflammatories. She has no redness no warmth no signs of infection. Related Data Home Medications ?Medication ?Instructions ?Recorded ?Confirmed albuterol sulfate .ROUTE 05/26/22 clonazepam 0.5 mg tablet mg 05/26/22 levothyroxine 50 mcg tablet mcg 05/26/22 lithium carbonate 300 mg capsule mg 05/26/22 sumatriptan succinate 100 mg tablet mg PO 05/26/22 Previous Rx's ?Medication ?Instructions ?Recorded cephalexin 500 mg capsule 500 mg PO TID 6 days #18 caps 12/18/22 fluconazole 150 mg tablet 150 mg PO DAILY #1 tab 12/18/22 Allergies Allergy/AdvReac Type Severity Reaction Status Date / Time trazodone Allergy Intermediate Verified 09/26/23 21:47 Review of Systems Status of ROS: Reports: 6 or more systems reviewed and unremarkable except as noted in History and below [facility] Medical History Allergic reaction to allergy skin test ?T78.49XA - Other allergy, initial encounter (ICD-10) Surgical History History of tonsillectomy (2009) ?Z90.89 - Acquired absence of other organs (ICD-10) History of spinal fusion for scoliosis (2011) ?Z98.1 - Arthrodesis status (ICD-10) ?Z87.39 - Personal history of other diseases of the musculoskeletal system and connective tissue (ICD-10) Family History Mother Thyroid disease Father Asthma Depression Sister Asthma Autism spectrum disorder Maternal Grandfather Depression High cholesterol High blood pressure Maternal Grandmother Depression High cholesterol High blood pressure Other Coronary artery disease Social History Smoking Status: Current every day smoker Do you use any of these nicotine containing products: Vaping Products Second hand tobacco smoke exposure: No How often do you have a drink containing alcohol: 2-4 times a month AUDIT-C Alcohol total score: 2 Non-prescribed substance use: denies use service: No Exam Narrative: Exam Narrative: EXAM GENERAL: Patient appears comfortable and well. EYES: No scleral icterus. LYMPH: No supraclavicular or cervical lymphadenopathy. SKIN: Visible skin seen during exam normal or with benign process only. EXT: No obvious abnormalities right wrist although his tender to palpation. ABD: Soft, non tender, non distended. PSYCH: Good eye contact, speech is not pressured. Const: Vital Signs, click to edit/add: Vital Signs - 24 hr 02/05/24 00:44 Temperature 97.8 F Pulse Rate [Pulse Oximeter] 80 Respiratory Rate 16 Blood Pressure [Le ft Upper Arm] 156/80 H Pulse Oximetry 98 Oxygen Delivery Me thod Room Air Course Course ED Course: Patient seen and examined. X-ray of the right wrist pending. Vital Signs Vital signs: Initial Vital Signs Temperature 97.8 F 02/05/24 00:44 Temperature Source Temporal Artery Scan 02/05/24 00:44 Pulse Rate 80 02/05/24 00:44 Pulse Rhythm Regular 02/05/24 00:44 Respiratory Rate 16 02/05/24 00:44 Blood Pressure 156/80 H 02/05/24 00:44 Blood Pressure Mean 105 02/05/24 00:44 Blood Pressure Position Sitting 02/05/24 00:44 Pulse Oximetry 98 02/05/24 00:44 Oxygen Delivery Method Room Air 02/05/24 00:44 Vital Signs Temperature 97.8 F 02/05/24 00:44 Pulse Rate 80 02/05/24 00:44 Respiratory Rate 16 02/05/24 00:44 Blood Pressure 156/80 H 02/05/24 00:44 Pulse Oximetry 98 02/05/24 00:44 Oxygen Delivery Method Room Air 02/05/24 00:44 Temperature 97.8 F 02/05/24 00:44 Pulse Rate 80 02/05/24 00:44 Respiratory Rate 16 02/05/24 00:44 Blood Pressure 156/80 H 02/05/24 00:44 Pulse Oximetry 98 02/05/24 00:44 Oxygen Delivery Method Room Air 02/05/24 00:44 Medical Decision Making MDM Narrative Medical decision making narrative: Patient is a 23-year-old woman who presents with chronic right wrist pain without injury. Her exam is low normal with exception of mild stiffness of the lived right wrist. X-ray upon my review shows no acute abnormalities. This time she appears have a limited monoarthritis versus sprain. I did place her on prednisone 20 mg b.i.d. for the next 5 days recommended ice and conservative therapy. Primary care follow-up as needed. Discharge Plan Discharge Clinical Impression: Pain, wrist Patient Disposition: Home, Self-Care Condition: Stable Instructions: Swollen Joint (ED) Additional Instructions: Prednisone as directed Ice Rest Follow-up with your doctor as needed Activity Level: No Restrictions Discharge Diet: Regular Prescriptions: No Action albuterol sulfate .ROUTE sumatriptan succinate 100 mg tablet PO clonazepam 0.5 mg tablet lithium carbonate 300 mg capsule Patient Comments: TAKE 1 CAPSULE BY MOUTH AT BEDTIME FOR 3 DAYS. THEN INCREASE TO 2 CAPSULES BY MOUTH AT BEDTIME levothyroxine 50 mcg tablet cephalexin 500 mg capsule 500 mg PO TID 6 Days Qty: 18 0RF fluconazole 150 mg tablet 150 mg PO DAILY Qty: 1 1RF Follow Up/Referrals: Vane Black PA-C [Primary Care Provider] - Stand Alone Forms: [employer] Info Instructions
--- OUTSIDE RECORDS SUMMARY | 2024-02-05 01:00 | XMS_ITS | Clinical Summary ---
Author Organization [facility] Address [place], [place] [address] Care Team Providers Care Cafeteria Cook Name Role Phone November VICE PRESIDENT NETWORK Unavailable Vane Black Primary Care Provider [phone] Allergies Active Allergy Reactions Criticality Noted Date Comments [place] [facility] U[facility]et 08/25/2018 Patient reports immediate stomach pain. [place] [facility] GI Upset 04/27/2018 [place] [facility] Upset 04/27/2018 Patient reports it feels like a rock when I eat it, for 48 hours and I cannot digest it. [place] GI Upset 04/27/2018 [place] GI Upset 08/25/2018 Patient reports it is severe. [place] [facility] Other - Describe In Comment Field 07/11/2018 Golimumab Anaphylaxis High 01/17/2024 Hot, flushed, nauseated, disoriented, tingling in mouth and throat, slurred speech Trazodone Other - Describe In Comment Field 09/17/2023 Suicidal thoughts Medications Medication Sig Dispensed Refills Start Date End Date Status levonorgestrel intrauterine device (Mirena) 20 mcg/24 hours (7 yrs) 52 mg IUD Inject 1 Device intrauterine. 1 Active EPINEPHrine (EPIPEN) 0.3 mg/0.3 mL auto-injector Inject 0.3 mg intramuscular each time if needed. 1 Active albuterol HFA (PRO-AIR; VENTOLIN; PROVENTIL) 90 mcg/actuation inhalerIndications: Wheezing Inhale 2 Puffs by mouth every 4 hours if needed for Shortness Of Breath. 2 Each 1 3 Active pantoprazole (PROTONIX) 40 mg delayed-release tabletIndications:A bdominal pain, epigastric TAKE 1 TABLET(40 MG) BY MOUTH EVERY DAY 90 Tablet 3 3 Active diclofenac topical (VOLTAREN) 1 % gelIndications:Cost ochondritis Apply 2 g topically to affected area(s) four times daily. 100 g 3 Active ondansetron (ZOFRAN ODT) 4 mg disintegrating tabletIndications:N ausea Place 1 Tablet (4 mg) on the tongue every 8 hours if needed for Nausea/Vomiting. 15 Tablet 4 Active lithium carbonate 600 mg capsuleIndications: Bipolar 1 disorder, mixed, moderate (HC) Take one capsule by mouth at bedtime. 14 Capsule 6 4 Active lithium carbonate (LITHONATE) 300 mg capsuleIndications: Bipolar 1 disorder, mixed, moderate (HC) Take 1 Capsule (300 mg) by mouth at bedtime. Take in addition to a 600 mg capsule. 14 Capsule 6 4 Active rimegepant (NURTEC) 75 mg orally disintegrating tabletIndications:C oncussion without loss of consciousness, subsequent encounter,Chronic post-traumatic headache, not intractable,Work related injury,Migraine with aura and without status migrainosus, not intractable Place 75 mg on the tongue once every other day. 45 Tablet 4 Active suvorexant (BELSOMRA) 10 mg tabletIndications:C oncussion without loss of consciousness, subsequent encounter,Work related injury,Insomnia due to medical condition Take 10 mg by mouth at bedtime. 90 Tablet 4 Active tiZANidine (ZANAFLEX) 2 mg tabletIndications:C oncussion without loss of consciousness, subsequent encounter,Chronic post-traumatic headache, not intractable,Work related injury,Whiplash, subsequent encounter Take 1 Tablet (2 mg) by mouth at bedtime. 90 Tablet 4 Active rizatriptan (MAXALT CASER SHOE PARTS) 5 mg disintegrating tabletIndications:C oncussion without loss of consciousness, subsequent encounter,Chronic post-traumatic headache, not intractable,Work related injury Place 1 Tablet (5 mg) on the tongue 2 times daily if needed for Migraine. Give at minimum 2hrs apart. Max Dose: 30mg per 24hrs. 54 Tablet 4 Active rx oxyCODONE 5 mg (ROXICODONE) tablet (ED DC MED)Indications:Lef t lower quadrant abdominal pain Take 1 Tablet (5 mg) by mouth every 6 hours if needed for Pain. 4 Tablet 4 Active clonazePAM (KLONOPIN) 0.5 mg tabletIndications:C hronic post-traumatic stress disorder (PTSD) Take 1 Tablet (0.5 mg) by mouth once daily if needed for Anxiety. 14 Tablet 4 Active pregabalin (LYRICA) 25 mg capsuleIndications: Generalized anxiety disorder with panic attacks Take 1 Capsule (25 mg) by mouth three times daily. 42 Capsule 4 Active adalimumab (Humira,CF, Pen) 40 mg/0.4 mL pnktIndications:Ank ylosing spondylitis, unspecified site of spine (HC) Inject 40 mg subcutaneous every 2 weeks. 2 Each 3 4 Active clonazePAM (KLONOPIN) 0.5 mg tabletIndications:C hronic post-traumatic stress disorder (PTSD) Take 1 Tablet (0.5 mg) by mouth once daily if needed for Anxiety. 14 Tablet 5 4 01/31/20 24 Discontinu ed(Reorder (E-cancel not sent)) pregabalin (LYRICA) 25 mg capsuleIndications: Generalized anxiety disorder with panic attacks Take 1 Capsule (25 mg) by mouth three times daily. 42 Capsule 5 4 01/31/20 24 Discontinu ed(Reorder (E-cancel not sent)) adalimumab (Humira,CF, Pen) 40 mg/0.4 mL pnktIndications:Ank ylosing spondylitis, unspecified site of spine (HC) Inject 40 mg subcutaneous every 2 weeks. 2 Each 3 4 02/03/20 24 Discontinu ed(Reorder (E-cancel not sent)) Active Problems Problem Noted Date Diagnosed Date Asthma, unspecified asthma s everity, unspecified whether complicated, unspecified whether persistent 01/19/2024 Ankylosing spondylitis of thoracolumbar region 0 12/28/2023 Bipolar 1 disorder, mixed, moderate 10/25/2023 Other specified hypothyroidism 04/21/2022 Anxiety 03/18/2022 Head [...] Overview: Added automatically from request for surgery [id number] Anorexia nervosa, restrictin g type, in partial [...] Encounters Date Type Department Care Team Description 02/03/2024 10:30 AM CDT Procedure Only [facility] [address] [place] [address] Cheryl Santo L Ac Acupuncture (Initial) 02/03/2024 Travel 01/31/2024 1:40 PM CDT Office Visit [facility] [address] [place] [address] Carson Cardona MD Follow Up (Last visit 12/2023) 01/31/2024 Travel 01/27/2024 1:00 PM CDT Office Visit [facility] [address] [facility] [place] [address] Fareed Eddy MD Consult (Endometriosis, PCOS/Cyst rupture 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) 01/27/2024 Travel 01/25/2024 12:45 PM CDT Office Visit [facility] [address] [place] [address] Vane Black PA Physical (23 Year Old/Pap/Medication management /PCOS/Endo- uterus pain /Non fasting ); Immunization/Injection 01/25/2024 Travel 01/20/2024 Orders Only [facility] [address] [place] [address] Carson Cardona MD <No scans attached> 01/17/2024 10:30 AM CDT Office Visit [facility] [address] [place] [address] Infusion Therapy (Simponi 200 mg #1/3) 01/16/2024 Travel 01/14/2024 Telephone [facility] [address] [place] [address] Carson Cardona MD Infusion Therapy 01/03/2024 2:00 PM CDT Ancillary Procedure [facility] [address] [facility] [place] [address] 01/03/2024 Travel 01/01/2024 3:46 PM CDT - 01/01/2024 8:18 PM CDT Emergency [facility] [address] [place] [address] Mimi Merino PA Left lower quadrant abdominal pain (Primary Dx) Discharge Disposition: Home Self Care 01/01/2024 Travel 01/01/2024 Nurse Triage [facility] [address] [place] [address] Vane Black PA Abdominal Pain 12/31/2023 Telephone [facility] [address] [place] [address] Vane Black PA Questions (X-RAY RESULTS) 12/29/2023 2:00 PM CDT Ancillary Procedure [facility] [address] [place] [address] 12/29/2023 1:10 PM CDT Office Visit [facility] [address] [place] [address] Vane Black PA Chest Pain (contusion - two times both times seen through [facility] ) 12/29/2023 Travel 12/28/2023 Telephone [facility] [address] [facility] [address] [place] [address] Carson Cardona MD Infusion Therapy 12/27/2023 8:20 AM CDT Office Visit [facility] [address] [facility] [address] [place] [address] Carson Cardona MD Consult (Consult - Spondyloarthropathy of SI Joint. /Referred By - JOSEMANUEL Dudley. ) 12/26/2023 Travel 12/09/2023 2:00 PM CDT Office Visit [facility] [address] [facility] [address] [place] [address] Ricadro Petersen, PhD, LP Neuropsychological Assessment 12/09/2023 Travel 11/25/2023 1:00 PM CDT Office Visit [facility] [address] [place] [address] Asya Owen MD Follow Up (Head Injury DOI: 10/30/22) 11/25/2023 Travel 11/23/2023 8:30 AM CDT Office Visit [facility] [address] [place] [address] Ricardo Petersen, PhD, LP Neuropsychological Assessment 11/23/2023 Travel 11/08/2023 12:45 PM CDT Orders Only [facility] [address] [place] [address] Lab, [facility] 11/08/2023 Travel from Last 3 Months Immunizations Name Administration Dates Next Due COVID-19 Vaccine Spikevax (M oderna 50mcg/0.5mL) 12YO+ [id number] Formula PF 08/23/2023 COVID-19 vaccine (Moderna 100mcg/0.5mL) [...] Pneumococcal conj 7-Valent (Prevnar 7) 1,10/25/2000 Tdap 01/25/2024,05/21/2010 Varicella Vaccine 05/21/2010,04/26/2000 Family History Medical History Relation Name Comments Allergic rhinitis Father Asthma Father Hypothyroidism Maternal Grandfather Hypothyroidism Maternal Grandmother Thyroid cancer Maternal Grandmother Hypothyroidism Mother Other Paternal Grandfather mva Autism spectrum disorder Sister 1 elvis Asthma Sister 2 melvin Relation Name Status [...] Alcohol Use Standard Drinks/Week Comments Not Currently 0 (1 standard drink = 0.6 oz pur e alcohol) PHQ-2 Answer Date Recorded PHQ-2 TOTAL SCORE 5 11/03/2023 Social Connections Answer Date Recorded Frequency of [...] Sex Assigned at Female 09/15/2023 10:11 AM APPLICATION PROGRAMMER ANALYST Gender Identity Female 09/15/2023 10:11 AM APPLICATION PROGRAMMER ANALYST Sexual Orientation Not on file Obstetrics History Para Term AB IAB SAB Ectopic Multiple Livin g Live Births 0 0 0 0 0 0 0 0 0 0 0 Last Filed Vital Signs Vital Sign Reading Time Taken Comments Blood Pressure 110/68 01/31/2024 1:44 PM CDT Pulse 80 01/31/2024 1:44 PM CDT Temperature 36.4 ??C (97.5 ??F) 01/17/2024 1 2:32 PM CDT Respiratory Rate 18 01/01/2024 3:50 PM CDT Oxygen Saturation 98% 01/25/2024 12: 54 PM CDT Inhaled Oxygen Concentration - - Weight 102.8 kg (226 lb 11.2 oz) 2023 10:22 AM CDT Height 174.9 cm (5' 8.86) 01/25/2024 1 2:54 PM CDT Body Mass Index 34.47 01/01/2024 3:50 PM CDT Plan of Treatment Upcoming Encounters Date Type Department Care Team (Latest Contact Info) Description 02/08/2024 8:15 AM CDT Preop Visit [facility] [address] [place] [address] Vane Black PA [address] [place] [address] 02/09/2024 3:00 PM CDT Procedure Only [facility] [address] [place] [address] Cheryl Santo, Omari Ac [address] [place] [address] 02/11/2024 12:30 PM CDT Procedure Only [facility] [address] [place] [address] Cheryl Santo L Ac [address] [place] [address] 02/14/2024 10:20 AM CDT Hospital Encounter [facility] [address] [place] [address] Fareed Eddy MD [address] [id number] 02/14/2024 10:20 AM CDT - 02/14/2024 11:35 AM CDT Surgery [facility] [address] [place] [address] Fareed Eddy MD [address] [address] LAPAROSCOPIC DIAGNOSTIC 02/15/2024 2:00 PM CDT Office Visit [facility] [address] [facility] [address] [place] [address] Asya Owen MD [address] [facility] [address] [place] [address] 04/10/2024 12:40 PM CDT Office Visit [facility] [address] [facility] [address] [place], [place] [id number] Carson Cardona MD [address] [facility] [address] [place], [place] [id number] Scheduled Procedures Name Priority Associated Diagnoses Date/Ti me LAPAROSCOPIC DIAGNOSTIC Elective Endometriosis 02/14/2024 10:20 AM CDT LAPAROSCOPIC LYSIS OF ADHESIONS Elective Endometriosis 02/14/2024 10:20 AM CDT Health Maintenance Due Date Last Done Comments Pap test for age 21-65 05/30/2023 0 (Verified in Care Everywhere or Patient Record) COVID-19 vaccine series (2022- season) 2023 08/23/2023, 06/26/2022, 08/02/2021, Additional history exists Influenza for age 9-49 04/16/2024 , 06/26/2022, 04/25/2019, Additional history exists Depression screening for age 12+ 11/02/2024 11/03/2023, 08/06/2023, 04/22/2023, Additional history exists BMI (ht and wt on same day) for age 18+ 12/26/2024 12/27/2023, 09/03/2022, 06/01/2022, Additional history exists Chlamydia for age 16-24 01/24/2025 01/25/20 24, 09/03/2022, 09/26/2019, Additional history exists Tetanus booster 01/24/2034 01/25/2024, 05/21/2010 Pneumococcal series for age 6-64 Aged Out 04/25/2001, 10/25/2000 No longer eligibl e based on patient's age to complete this topic HPV series for age 9-26 Completed 12/15/19 15, 07/06/2014, 04/20/2014 HIV for age 15-65 Completed 09/03/2022 Hepatitis C screening for age 18-79 Completed 12/27/2023 Tdap Completed 01/25/2024, 05/21/2010 Procedures Procedure Name Priority Date/Time Associated Diagnosis Comments GC CHLAMYDIA TRACH PROBE Routine 01/25/2024 1:25 PM CDT Screening examination for venereal disease CT CHEST WO Routine 01/03/2024 2:43 PM CDT Chest wall pain Soft tissue swelling of chest wall CT ABDOMEN PELVIS W STAT 01/01/2024 6 :53 PM CDT US PELVIS COMPLETE TA AND TV STAT 01/01/2024 5:45 PM CDT CBC WITH AUTO DIFFERENTIAL STAT 01/01/2024 3:56 PM CDT BASIC METABOLIC PANEL STAT 01/01/2024 3:56 PM CDT CBC WITH AUTO DIFFERENTIAL STAT 01/01/2024 3:56 PM CDT URINE STAT 01/01/2024 3:56 PM CDT UA W/ SEDIMENT EXAM REFLEXED PER CRITERIA STAT 01/01/2024 3:56 PM CDT XR CHEST 2 VIEWS PA AND LATERAL Routine 12/29/2023 2:03 PM CDT Chest wall pain QFT MITOGEN PERFORMABLE Routine 12/27/2023 9:25 AM CDT Spondyloarthropathy of sacroiliac joint QFT TB2 PERFORMABLE Routine 12/27/2023 9 :25 AM CDT Spondyloarthropathy of sacroiliac joint QFT TB1 PERFORMABLE Routine 12/27/2023 9 :25 AM CDT Spondyloarthropathy of sacroiliac joint QUANTIFERON TB GOLD PLUS Routine 12/27/2023 9:25 AM CDT Spondyloarthropathy of sacroiliac joint ANTI HBS QUANT AHS Routine 12/27/2023 9: 25 AM CDT Spondyloarthropathy of sacroiliac joint HBSAG (HBS) Routine 12/27/2023 9:25 AM CDT Spondyloarthropathy of sacroiliac joint ANTI HCV Routine 12/27/2023 9:25 AM CDT Spondyloarthropathy of sacroiliac joint QUANTIFERON TB GOLD PLUS Routine 12/27/2023 9:25 AM CDT Spondyloarthropathy of sacroiliac joint CBC WITH AUTO DIFFERENTIAL Routine 11/08/2023 12:52 PM CDT High risk medication use BASIC METABOLIC PANEL Routine 11/08/2023 12:52 PM CDT High risk medication use CBC WITH AUTO DIFFERENTIAL Routine 11/08/2023 12:52 PM CDT High risk medication use TSH WITH REFLEX Routine 11/08/2023 12:52 PM CDT High risk medication use LITHIUM Routine 11/08/2023 12:52 PM CDT High risk medication use HLA B 27 DISEASE ASSOCIATION Routine 11/08/2023 12:52 PM CDT Chronic right SI joint pain Spondyloarthropathy of sacroiliac joint LC HIV-1/O/2, 4TH GENERATION Routine 09/03/2022 5:17 PM APPLICATION PROGRAMMER ANALYST Febrile illness Dysuria from Last 3 Months or Most Recently Relevant to Health Maintenance Results * GC CHLAMYDIA DNA PCR [[id number]] (01/25/2024 1:25 PM CDT) CHLAMYDIA PROBE Negative 11:19 AM CDT [facility] N GONORRHOEAE PROBE Negative 01/26/2024 11:19 AM CDT [facility] Other VAGINAL SWAB / Unknown Non-Blood / Unknown 01/25/2024 1:25 PM CDT 01/25/2024 2:09 PM CDT Vane ABERNATHY MICROBIOLOGY [facility] [address] [place] [id number], * CT CHEST WO (01/03/2024 2:43 PM CDT) Anatomical Region Laterality Modality CHEST, THORAX, HEART Computed To mography 01/03/2024 4:31 PM CDT Narrative 01/03/2024 4:31 PM CDT For Patients: ??As a result of the Cures Act, medical imaging exams and procedure reports are released immediately into your electronic medical record. ??You may view this report before your referring provider. ??If you have questions, please contact your health care provider. Indication: Chest wall pain Technique: Noncontrast CT chest Please note that all CT scans at this facility use dose modulation, iterative reconstruction, and/or weight-based dosing when appropriate to reduce radiation dose to as low as reasonably achievable. Comparison: CT abdomen 01/01/2024 Findings: The visualized thyroid is normal. The upper abdomen is unremarkable. Postop changes to the thoracic spine. No adenopathy in the mediastinum, derik or axilla. 3 millimeter pulmonary nodule in the anterior right lung of no significance. No pleural effusion or infiltrate. No pulmonary contusion or pneumothorax. No thoracic vertebral body compression fracture. The ribs are intact. The sternum is also intact. No retrosternal hematoma. Aorta appears normal. Impression: No acute traumatic injury to the chest. Please note that all CT scans at this facility use dose modulation, iterative reconstruction, and/or weight-based dosing when appropriate to reduce radiation dose to as low as reasonably achievable. Dictated by Joselito Cooper MD @ 01/03/2024 4:31:30 PM (Electronically Signed) Procedure Note Joselito Cooper MD - 01/03/2024 For Patients: As a result of the Century Cures Act, medical imagingexams and procedure reports are released immediately into your electronicmedical record. You may view this report before your referring provider.If you have questions, please contact your health care provider. Indication: Chest wall pain Technique: Noncontrast CT chest Please note that all CT scans at this facility use dose modulation,iterative reconstruction, and/or weight-based dosing when appropriate toreduce radiation dose to as low as reasonably achievable. Comparison: CT abdomen 01/01/2024 Findings: The visualized thyroid is normal. The upper abdomen is unremarkable.Postop changes to the thoracic spine. No adenopathy in the mediastinum,derik or axilla. 3 millimeter pulmonary nodule in the anterior right lungof no significance. No pleural effusion or infiltrate. No pulmonarycontusion or pneumothorax. No thoracic vertebral body compressionfracture. The ribs are intact. The sternum is also intact. No retrosternalhematoma. Aorta appears normal. Impression: No acute traumatic injury to the chest. Please note that all CT scans at this facility use dose modulation,iterative reconstruction, and/or weight-based dosing when appropriate toreduce radiation dose to as low as reasonably achievable. Dictated by Joselito Cooper MD @ 01/03/2024 4:31:30 PM (Electronically Signed) Vane ABERNATHY CT * CT ABD/PELVIS W IV CONTRAST (01/01/2024 6:53 PM CDT) Anatomical Region Laterality Modality Abdomen, Pelvis, AORTA, LIVER, SPLEEN Computed Tomography 01/01/2024 7:30 PM CDT Narrative 01/01/2024 7:30 PM CDT For Patients: ??As a result of the Century Cures Act, medical imaging exams and procedure reports are released immediately into your electronic medical record. ??You may view this report before your referring provider. ??If you have questions, please contact your health care provider. Indication: Left lower quadrant abdominal pain Comparison: 02/19/2023 Technique: CT of the abdomen and pelvis with IV contrast. 100 cc of Omnipaque 300 IV Findings: Limited views of the lung bases demonstrate no new focal or diffuse pulmonary opacities. ??No pleural effusions. Liver is non cirrhotic in morphology. No suspicious liver lesion. Patent portal and hepatic veins. No intra or extrahepatic biliary ductal dilatation. No gallbladder distention. The spleen is normal in size. The pancreas and bilateral adrenal glands appear unremarkable. The kidneys enhance symmetrically. No hydronephrosis. Nonobstructive bowel. The appendix is normal in appearance. No free air or free fluid in the abdomen or pelvis. Fecalization in small bowel loops and fluid-filled small bowel loops measuring up to 2.6 cm. Mildly prominent but non pathologically enlarged lymph nodes in the lower mesentery mostly right lower quadrant appears unchanged. The urinary bladder is incompletely distended. An IUD appears well positioned within the uterus. The ovaries are symmetric and within normal limits in size. Extensive posterior spinal fusion of the thoracic spine extending down to L1, similar in appearance to previous. No abdominal aortic aneurysm. Patent proximal visceral arteries. Impression: 1. Fecalization in small bowel loops and fluid-filled small bowel loops measuring up to 2.6 cm. This could be ileus/delayed intestinal transit but is a nonspecific finding. 2. Mildly prominent but non pathologically enlarged lymph nodes in the lower mesentery mostly right lower quadrant appears unchanged. 3. No colonic diverticulitis. Please note that all CT scans at this facility use dose modulation, iterative reconstruction, and/or weight-based dosing when appropriate to reduce radiation dose to as low as reasonably achievable. Dictated by Macho Dailey MD @ 01/01/2024 7:30:22 PM (Electronically Signed) Procedure Note Macho Dailey MD - 01/01/2024 For Patients: As a result of the Cures Act, medical imagingexams and procedure reports are released immediately into your electronicmedical record. You may view this report before your referring provider.If you have questions, please contact your health care provider. Indication: Left lower quadrant abdominal pain Comparison: 02/19/2023 Technique: CT of the abdomen and pelvis with IV contrast. 100 cc of Omnipaque 300 IV Findings: Limited views of the lung bases demonstrate no new focal or diffusepulmonary opacities. No pleural effusions. Liver is non cirrhotic in morphology. No suspicious liver lesion. Patentportal and hepatic veins. No intra or extrahepatic biliary ductal dilatation. No gallbladderdistention. The spleen is normal in size. The pancreas and bilateral adrenal glands appear unremarkable. The kidneys enhance symmetrically. No hydronephrosis. Nonobstructive bowel. The appendix is normal in appearance. No free air orfree fluid in the abdomen or pelvis. Fecalization in small bowel loops andfluid-filled small bowel loops measuring up to 2.6 cm. Mildly prominent but non pathologically enlarged lymph nodes in the lowermesentery mostly right lower quadrant appears unchanged. The urinary bladder is incompletely distended. An IUD appears wellpositioned within the uterus. The ovaries are symmetric and within normallimits in size. Extensive posterior spinal fusion of the thoracic spine extending down toL1, similar in appearance to previous. No abdominal aortic aneurysm. Patent proximal visceral arteries. Impression: 1. Fecalization in small bowel loops and fluid-filled small bowel loopsmeasuring up to 2.6 cm. This could be ileus/delayed intestinal transit butis a nonspecific finding. 2. Mildly prominent but non pathologically enlarged lymph nodes in thelower mesentery mostly right lower quadrant appears unchanged. 3. No colonic diverticulitis. Please note that all CT scans at this facility use dose modulation,iterative reconstruction, and/or weight-based dosing when appropriate toreduce radiation dose to as low as reasonably achievable. Dictated by Macho Dailey MD @ 01/01/2024 7:30:22 PM (Electronically Signed) Mimi Velazquez Angelique ABERNATHY CT * US PELVIS COMPLETE TA AND TV (01/01/2024 5:45 PM CDT) Anatomical Region Laterality Modality Pelvis Ultrasound 01/01/2024 6:12 PM CDT Narrative 01/01/2024 6:12 PM CDT For Patients: ??As a result of the Cures Act, medical imaging exams and procedure reports are released immediately into your electronic medical record. ??You may view this report before your referring provider. ??If you have questions, please contact your health care provider. Indication: Pain/tenderness Technique: Pelvic ultrasound, transabdominal and transvaginal, utilizing grayscale and color Doppler. Comparison: CT abdomen/pelvis on February 19, 2023 and pelvic ultrasound on September 26, 2019 Findings: The uterus is normal in echogenicity and size measuring 7.0 x 3.8 x 4.7 centimeters. No focal uterine masses or lesions. Previously visualized hypervascular lesion seen in the anterior mid uterus is not appreciated on today`s exam. The endometrium is normal in appearance and thickness measuring 0.4 centimeters. Well-positioned intrauterine device. There are small nabothian cysts in the cervix. The bilateral ovaries are not visualized secondary to overlying bowel gas. No suspicious adnexal masses or lesions. No free fluid. Impression: 1. No sonographic evidence of an acute process involving the pelvis. 2. The uterus, endometrium, and visualized cervix are within normal limits. Well-positioned intrauterine device. 3. The bilateral ovaries are not visualized secondary to overlying bowel gas. Dictated by Angel Luis Shahid MD @ 01/01/2024 6:12:09 PM (Electronically Signed) Procedure Note Angel Luis Shahid MD - 01/01/2024 For Patients: As a result of the Cures Act, medical imagingexams and procedure reports are released immediately into your electronicmedical record. You may view this report before your referring provider.If you have questions, please contact your health care provider. Indication: Pain/tenderness Technique: Pelvic ultrasound, transabdominal and transvaginal, utilizing grayscaleand color Doppler. Comparison: CT abdomen/pelvis on February 19, 2023 and pelvic ultrasound on September Findings: The uterus is normal in echogenicity and size measuring 7.0 x 3.8 x 4.7centimeters. No focal uterine masses or lesions. Previously visualizedhypervascular lesion seen in the anterior mid uterus is not appreciated ontoday`s exam. The endometrium is normal in appearance and thickness measuring 0.4centimeters. Well-positioned intrauterine device. There are small nabothian cysts in the cervix. The bilateral ovaries are not visualized secondary to overlying bowel gas. No suspicious adnexal masses or lesions. No free fluid. Impression: 1. No sonographic evidence of an acute process involving the pelvis. 2. The uterus, endometrium, and visualized cervix are within normallimits. Well-positioned intrauterine device. 3. The bilateral ovaries are not visualized secondary to overlying bowelgas. Dictated by Angel Luis Shahid MD @ 01/01/2024 6:12:09 PM (Electronically Signed) Mimi ABERNATHY US * (ABNORMAL) CBC WITH AUTO DIFFERENTIAL (01/01/2024 3:56 PM CDT) Only the most recent of2 resultswithin the time period is included. WHITE BLOOD COUNT 11.0 4.5 - 11.0 thou/cu mm 01/01/2024 4:03 PM [facility] RED BLOOD COUNT 4.87 4.00 - 5.20 mil/cu mm 01/01/2024 4:03 PM [facility] HEMOGLOBIN 15.1 12.0 - 16.0 g/dL 01/01/2024 4:03 PM [facility] HEMATOCRIT 45.5 33.0 - 51.0 % 01/01/2024 4:03 PM [facility] MCV 93 80 - 100 fL 01/01/2024 4:03 PM [facility] MCH 31.0 26.0 - 34.0 pg 01/01/2024 4:03 PM [facility] MCHC 33.2 32.0 - 36.0 g/dL 01/01/2024 4:03 PM [facility] RDW 13.4 11.5 - 15.5 % 01/01/2024 4:03 PM [facility] PLATELET COUNT 318 140 - 440 thou/cu mm 01/01/2024 4:03 PM [facility] MPV 9.0 6.5 - 11.0 fL 01/01/2024 4:03 PM [facility] % NEUT 54.3 % 01/01/2024 4:03 PM [facility] % LYMPH 34.0 % 01/01/2024 4:03 PM [facility] % MONO 8.0 % 01/01/2024 4:03 PM [facility] % EOS 3.2 % 01/01/2024 4:03 PM [facility] % BASO 0.5 % 01/01/2024 4:03 PM [facility] ABSOLUTE NEUTROPHILS 6.0 1.7 - 7.0 thou/cu mm 01/01/2024 4:03 PM [facility] ABSOLUTE LYMPHOCYTES 3.8(H) 0.9 - 2.9 thou/cu mm 01/01/2024 4:03 PM [facility] ABSOLUTE MONOCYTES 0.9(H) <0.9 thou/cu mm 01/01/2024 4:03 PM [facility] ABSOLUTE EOSINOPHILS 0.4 <0.5 thou/cu mm 01/01/2024 4:03 PM [facility] ABSOLUTE BASOPHILS 0.1 <0.3 thou/cu mm 01/01/2024 4:03 PM [facility] Blood BLOOD SPECIMEN / Unknown Venipuncture / Unknown 01/01/2024 3:56 PM CDT 01/01/2024 3:59 PM T Mimi ABERNATHY HEMATOLOGY [facility] [address] [place] [address] * UA W/ SEDIMENT EXAM REFLEXED PER CRITERIA (01/01/2024 3:56 PM CDT) COLOR Yellow Yellow Color 01/01/2024 4:03 PM [facility] CLARITY Clear Clear Clarity 01/01/2024 4:03 PM [facility] SPECIFIC GRAVITY,URINE 1.020 1.010, 1.015, 1.020, 1.025 01/01/2024 4:03 PM [facility] PH,URINE 5.5 6.0, 7.0, 8.0, 5.5, 6.5, 7.5, 8.5 01/01/2024 4:03 PM [facility] UROBILINOGEN, QUALITATIVE Normal Normal EU/dl 01/01/2024 4:03 PM [facility] PROTEIN, URINE Negative Negative mg/dL 01/01/2024 4:03 PM [facility] GLUCOSE, URINE Negative Negative mg/dL 01/01/2024 4:03 PM [facility] KETONES,URINE Negative Negative mg/dL 01/01/2024 4:03 PM [facility] BILIRUBIN,URI NE Negative Negative 01/01/2024 4:03 PM [facility] OCCULT BLOOD,URINE Negative Negative 01/01/2024 4:03 PM [facility] NITRITE Negative Negative 01/01/2024 4:03 PM [facility] LEUKOCYTE ESTERASE Negative Negative 01/01/2024 4:03 PM [facility] Urine URINE SPECIMEN / Unknown Non-Blood / Unknown 01/01/2024 3:56 PM CDT 01/01/2024 3:59 PM T Mimi ABERNATHY URINE [facility] [address] [place] [address] * URINE (01/01/2024 3:56 PM CDT) ,URIN E Negative Negative 01/01/2024 4:04 PM [facility] Urine URINE SPECIMEN / Unknown Non-Blood / Unknown 01/01/2024 3:56 PM CDT 01/01/2024 3:59 PM CDT Mimi ABERNATHY URINE [facility] [address] [place] [address] * BASIC METABOLIC PANEL (01/01/2024 3:56 PM CDT) Only the most recent of2 resultswithin the time period is included. Pathologist [facility] SODIUM 139 136 - 145 mmol/L 01/01/2024 4:18 PM [facility] POTASSIUM 4.0 3.5 - 5.1 mmol/L 01/01/2024 4:18 PM [facility] CHLORIDE 106 98 - 107 mmol/L 01/01/2024 4:18 PM [facility] CO2,TOTAL 25 22 - 29 mmol/L 01/01/2024 4:18 PM [facility] ANION GAP 8 5 - 18 01/01/2024 4:18 PM [facility] GLUCOSE 88 70 - 99 mg/dL 01/01/2024 4:18 PM [facility] CALCIUM 9.4 8.6 - 10.0 mg/dL 01/01/2024 4:18 PM [facility] BUN 9 6 - 20 mg/dL 01/01/2024 4:18 PM [facility] CREATININE 0.66 0.50 - 0.90 mg/dL 01/01/2024 4:18 PM [facility] BUN/CREAT RATIO 14 10 - 20 4:18 PM [facility] eGFR >90 >90 mL/min/1.7 3m2 01/01/2024 4:18 PM [facility] Comment:As of 2021, eG FR is calculated by the CKD-EPI creatinine equation without race adjustment. ??eGFR can be influenced by muscle mass, exercise, and diet. ??The reported eGFR is an estimation only and is only applicable if the renal function is stable. Blood BLOOD SPECIMEN / Unknown Venipuncture / Unknown 01/01/2024 3:56 PM CDT 01/01/2024 3:59 PM CDT Mimi ABERNATHY CHEMISTRY [facility] [address] [place] [address] * XR CHEST 2 VIEWS PA AND LATERAL (12/29/2023 2:03 PM CDT) Anatomical Region Laterality Modality CHEST, THORAX, Lung, HEART Compu georgie Radiography 12/31/2023 6:01 AM CDT Impressions 12/31/2023 6:01 AM CDT No acute findings. Dictated by Joselito Cooper MD @ 12/31/2023 6:01:35 AM (Electronically Signed) Narrative 12/31/2023 6:01 AM CDT For Patients: ??As a result of the Cures Act, medical imaging exams and procedure reports are released immediately into your electronic medical record. ??You may view this report before your referring provider. ??If you have questions, please contact your health care provider. INDICATION: Chest wall pain TECHNIQUE: Chest 2 views COMPARISON: 03/18/2022 FINDINGS: Spinal fixation hardware again noted. Lungs are clear. Stable mediastinum. Procedure Note Joselito Cooper MD - 12/31/2023 For Patients: As a result of the Cures Act, medical imagingexams and procedure reports are released immediately into your electronicmedical record. You may view this report before your referring provider.If you have questions, please contact your health care provider. INDICATION: Chest wall pain TECHNIQUE: Chest 2 views COMPARISON: 03/18/2022 FINDINGS: Spinal fixation hardware again noted. Lungs are clear. Stable mediastinum. IMPRESSION: No acute findings. Dictated by Joselito Cooper MD @ 12/31/2023 6:01:35 AM (Electronically Signed) Vane ABERNATHY [facility] * QFT MITOGEN PERFORMABLE (12/27/2023 9:25 AM CDT) MITOGEN 10.00 IU/mL 12/28/2023 9:04 AM CDT [facility] Blood BLOOD SPECIMEN / Unknown Venipuncture / Unknown 12/27/2023 9:25 AM CDT 12/27/2023 9:25 AM CDT Carson Cardona MD CHEMISTRY Performing Organization Address City/[facility] Co de Phone Number [facility] [address] [place] [address], * QFT TB2 PERFORMABLE (12/27/2023 9:25 AM CDT) TB2 0.08 IU/mL 12/28/2023 9:04 AM CDT [facility] Blood BLOOD SPECIMEN / Unknown Venipuncture / Unknown 12/27/2023 9:25 AM CDT 12/27/2023 9:25 AM CDT Carson Cardona MD CHEMISTRY Performing Organization Address City/[facility]/ZIP Co de Phone Number [facility] [address] [place] [address], * QFT TB1 PERFORMABLE (12/27/2023 9:25 AM CDT) TB1 0.05 IU/mL 12/28/2023 9:05 AM CDT [facility] Blood BLOOD SPECIMEN / Unknown Venipuncture / Unknown 12/27/2023 9:25 AM CDT 12/27/2023 9:25 AM CDT Carson Cardona MD CHEMISTRY Performing Organization Address City/[facility]/ZIP Co de Phone Number [facility] [address] [place] [address], * QUANTIFERON TB GOLD PLUS (12/27/2023 9:25 AM CDT) QFTP NIL 0.03 12/28/2023 9:16 AM CDT [facility] TB1 0.05 IU/mL 12/28/2023 9:16 AM CDT [facility] TB2 0.08 IU/mL 12/28/2023 9:16 AM CDT [facility] MITOGEN 10.00 IU/mL 12/28/2023 9:16 AM CDT [facility] QFTP TB AG1 - NIL 0.02 024 9:16 AM CDT [facility] TB1-NIL % OF NIL 67 % 12/28/19 9:16 AM CDT [facility] QFTP TB AG2 - NIL 0.05 024 9:16 AM CDT [facility] TB2-NIL % OF NIL >100 % 12/28/19 9:16 AM CDT [facility] QFTP MITOGEN - NIL 9.97 2023 9:16 AM CDT [facility] QFTP QUANTIFERON INTERPRETATION Negative Negative 12/28/2023 9:16 AM CDT [facility] Blood BLOOD SPECIMEN / Unknown Venipuncture / Unknown 12/27/2023 9:25 AM CDT 12/27/2023 9:25 AM CDT [facility] - 12/28/2023 9:16 AM CDT M. tuberculosis infection not likely, but cannot be excluded in cases of immunosuppression. CAUTION: The performance of QuantiFERON-TB Gold Plus has not been evaluated in specimens from: - Individuals with impaired or altered immune factors (HIV infections, transplant patients, those receieving immunosuppressive drugs such as corticosteroids) and those with other clinical conditions (e.g., diabetes, hematological disorders). - Individuals younger than 17 years old. ??Refer to CDC website for testing recommendations in children 6-17 years old. - women Carson Cardona MD CHEMISTRY Performing Organization Address City/[facility] Co de Phone Number [facility] [address] [place] [address], [place] * HBSAG (HBS) (12/27/2023 9:25 AM CDT) Pathologist [facility] HBSAG Nonreactive Nonreactive 12/27/2023 5:24 PM CDT [facility] Blood BLOOD SPECIMEN / Unknown Venipuncture / Unknown 12/27/2023 9:25 AM CDT 12/27/2023 9:25 AM CDT Carson Cardona MD SEND OUTS Performing Organization Address [facility] Co de Phone Number [facility] [address] [place] [address], [place] * ANTI HCV (12/27/2023 9:25 AM CDT) [facility] HEPATITIS C ANTIBODY Non-Reacti ve Non-React gab 12/27/2023 5:26 PM CDT [facility] Comment:Please note, per www .CDC.gov: If a patient is known to be at high risk of HCV infection, or is symptomatic, and the physician's suspicion of HCV infection is high, HCV RNA testing is often employed and is of diagnostic value, even after an initial negative anti-HCV test result. Blood BLOOD SPECIMEN / Unknown Venipuncture / Unknown 12/27/2023 9:25 AM CDT 12/27/2023 9:25 AM CDT Carson Cardona MD SEND OUTS Performing Organization Address City/[facility] Co de Phone Number [facility] [address] [place] [address], [place] * ANTI HBS QUANT AHS (12/27/2023 9:25 AM CDT) [facility] ANTI HBS QUANT 9.10 mIU/mL 12/27/2023 7:02 PM CDT [facility] Blood BLOOD SPECIMEN / Unknown Venipuncture / Unknown 12/27/2023 9:25 AM CDT 12/27/2023 9:25 AM CDT Narrative [facility] - 12/27/2023 7:02 PM CDT <8.5 Considered not immune to HBV infection. >=8.5 to < 11.5 Indeterminate result, unable to dertermine if antibody is present at levels consistent with immunity. >= 11.5 Considered immune to HBV infection. Biotin supplements may cause clinically significant interference for this test assay. ??If interference is suspected, it is strongly recommended that biotin is discontinued for at least one week prior to retesting. Carson Cardona MD SEND OUTS [facility] [address] [place] [address], * HLA B 27 DISEASE ASSOCIATION (11/08/2023 12:52 PM CDT) HLA B27 Negative 11/19/2023 11:[address] [facility] ([facility]) Comment: HLA-B*27 Negative B27 allele interpretation for all loci based on IMGT/HLA database version 3.51.0 This test was developed and its performance characteristics determined by [employer]. ??It has not been cleared or approved by the Food and Drug Administration. [facility] CLIA ID Number [id number] THis test was performed using Polymerase Chain Reaction (PCR) and Sequence Specific Oligonucleotide Probes (SSOP) technique. Sequence Based Typing (SBT) may be used as a supplemental method when necessary. If you have questions, please call [facility] customer service at or email at [email or web address]. Blood BLOOD SPECIMEN / Unknown Venipuncture / Unknown 11/08/2023 12:52 PM CDT 11/08/2023 12:54 PM CDT Narrative [facility] ([facility]) - 11/19/2023 11:10 AM CDT Performed at: ??[address] [place], [place] ??[id number] Chief Business Development Officer: Kristen Mendez PhD, Phone: ??[phone] Vane ABERNATHY SEND OUTS Performing Organization Address [facility]/ZIP Co de Phone Number [facility] ([facility]) [address] [place] [address], [place] * TSH WITH REFLEX (11/08/2023 12:52 PM CDT) TSH 1.99 0.27 - 4.20 uIU/mL 11/08/2023 10:24 PM CDT [facility] Blood BLOOD SPECIMEN / Unknown Venipuncture / Unknown 11/08/2023 12:52 PM CDT 11/08/2023 12:54 PM CDT [facility] - 11/08/2023 10:24 PM CDT In Adults, TSH values between 5.00 and 10.00 uIU/ml do not necessarily indicate the presence of Hypothyroidism. Correlation with clinical findings such as presence of goiter and/or Thyroperoxidase (TPO) Antibody may be helpful. For more information please refer to HILARY 2004; 291: 228-238. Kendal Vallejo NP CHEMISTRY Performing Organization Address [facility] Co de Phone Number [facility] [address] [place] [address], * (ABNORMAL) LITHIUM (11/08/2023 12:52 PM CDT) LITHIUM 0.4(L) 0.6 - 1.2 mmol/L 11/08/2023 10:21 PM CDT [facility] DATE OF LAST DOSE 11/07/2023 11/08/2023 10:21 PM CDT [facility] TIME OF LAST DOSE 11:00 PM 11/08/2023 10:21 PM CDT [facility] Blood BLOOD SPECIMEN / Unknown Venipuncture / Unknown 11/08/2023 12:52 PM CDT 11/08/2023 12:54 PM CDT November Yoni DAVENPORT CHEMISTRY [facility] [address] [place] [address], * LC HIV-1/O/2, 4TH GENERATION (09/03/2022 5:17 PM APPLICATION PROGRAMMER ANALYST) HIV Scr 4th Gen Non Reactive Non Reactive 09/09/2022 10:06 PM APPLICATION PROGRAMMER ANALYST [facility] Comment: HIV Negative HIV-1/HIV-2 antibodies and HIV-1 p24 antigen were NOT detected. There is no laboratory evidence of HIV infection. Blood BLOOD SPECIMEN / Unknown Venipuncture / Unknown 09/03/2022 5:17 PM APPLICATION PROGRAMMER ANALYST 09/03/2022 5:23 PM APPLICATION PROGRAMMER ANALYST Narrative [facility] ([facility]) - 09/09/2022 10:06 PM APPLICATION PROGRAMMER ANALYST Performed at: ??[address] - [address] ??[id number] Chief Business Development Officer: Anderson Johnson MD, Phone: ??[phone] Carmela Arriola MD LABORATORY [facility] ([facility]) [address] [place] [address] from Last 3 Months or Most Recently Relevant to Health Maintenance Advance Directives * Full Code (Latest Code Status on File) Date Activated Date Inactivated Comments 04/14/2023 12:27 PM 04/14/2023 5:32 PM Question Answer Comments Code Status Discussion: Discussed Care Teams Cafeteria Cook Relationship Specialty Start Date End Date Vane Black PA [address] [place] [address] PCP - General Physician Electric Power Line Examiner 02/15/23 Kendal Vallejo, ISSAC [address] [place] [address] Mental Health Provider Nurse Practitioner - Mental Health 03/18/22
--- OUTSIDE RECORDS SUMMARY | 2024-02-05 01:01 | XMS_ITS | Encounter Summary ---
Author Organization [place] Address [address] [facility] [place] [address] Care Team Providers Care Hardware Designer Name Role Phone Lucy Valverde MD Primary Care Provider [phone] Marilou Quigley MD Primary Care Provider [phone] Lola Laurent PA-C Unavailable [phone] Lucy Valverde MD Unavailable [phone] Sukhwinder Gerard MD Unavailable [phone] Sukhwinder Gerard MD Unavailable [phone] Vane Fish APRN PICTURE HANGER Unavailable Un available Lucy Valverde MD Unavailable [phone] Luyc Valverde MD Unavailable [phone] Vane Fish APRN PICTURE HANGER Unavailable Un available Vane Black Primary Care Provider [phone] Encounter Details Date Type Department Care Team (Late st Contact Info) Description 10/04/2007 Abstract [facility] [address] [place] [address] Lucy Valverde MD [address] [place] [address] [place] [address] Social History Tobacco Use Types [...] documented as of this encounter Care Teams Hardware Designer Relationship Specialty Start Date End Date Lucy Valverde MD [address] [facility] [place] [address] PCP - General 08/23/07 04/28/17 Marilou Quigley MD [facility] [address] [place] [address] PCP - General 04/29/17 05/11/23 Vane Black PA [facility] [place] [address] PCP - General Family Practice 05/12/23 Lola Laurent PA-C [address] [facility] [place] [address] Assigned PCP 09/23/19 11/18/19 Lucy Valverde MD [address] [facility] [place] [address] Assigned PCP 11/19/19 11/16/20 Sukhwinder Gerard MD [address] [place], [place] [address] Gastroenterology 03/08/20 Sukhwinder Gerard MD [facility] [address] [address] [place], [place] [address] Assigned Gastroenterology Provider 06/07/20 09/06/21 Vane Fish APRN PICTURE HANGER Assigned PCP 11/17/20 02/27/21 Lucy Valverde MD [address] [facility] [address] [place] [address] Assigned PCP 02/28/21 07/31/22 Lucy Valverde MD [address] [facility] [address] [place] [address] Assigned PCP 10/10/22 11/13/22 Vane Fish APRN PICTURE HANGER Assigned PCP 11/14/22 02/19/23 documented as of this encounter
--- OUTSIDE RECORDS SUMMARY | 2024-02-05 01:01 | XMS_ITS | Encounter Summary ---
Author Organization [place] Address [address] [facility] [place] [address] Care Team Providers Care Licensing Engineer Name Role Phone Marilou Quigley MD Primary Care Provider [phone] Lola Laurent-C Unavailable [phone] Lucy Valverde MD Unavailable [phone] Sukhwinder Gerard MD Unavailable [phone] Sukhwinder Gerard MD Unavailable [phone] Vane Fish APRN CERAMIST Unavailable Un available Lucy Valverde MD Unavailable [phone] Lucy Valverde MD Unavailable [phone] Vane Fish APRN CERAMIST Unavailable Un available Vane Black Primary Care Provider [phone] Reason for Visit * Reason Onset Date Comments Mental Health Problem 04/29/2017 Encounter Details Date Type Department Care Team ([facility] st Contact Info) Description 04/29/2017 Telephone [facility] Intake [address] [place] [id number] Generic, Behavioral Intake, Mental Health Problem Social [...] Saxena - 04/29/2017 5:53 PM CDT S: [facility] called to place a 17 yr old female for inpatient mental health treatment. B: Pt was BIB parents to the [facility] due to suicidal ideation with a [...] documented as of this encounter Care Teams Licensing Engineer Relationship Specialty Start Date End Date Marilou Quigley MD [facility] [address] [place] [address] PCP - General 04/29/17 05/11/23 Vane Black PA [address] [place] [address] PCP - General Family Practice 05/12/23 Lola Laurent PA-C [address] [place] [address] Assigned PCP 09/23/19 11/18/19 Lucy Valverde MD [address] [place] [address] Assigned PCP 11/19/19 11/16/20 Sukhwinder Gerard MD [address] [place] [address] Gastroenterology 03/08/20 Sukhwinder Gerard MD [facility] [address] [address] [place] [address] Assigned Gastroenterology Provider 06/07/20 09/06/21 Vane Fish APRN CERAMIST Assigned PCP 11/17/20 02/27/21 Lucy Valverde MD [address] [address] Assigned PCP 02/28/21 07/31/22 Lucy Valverde MD [address] [place] [address] Assigned PCP 10/10/22 11/13/22 Vane Fish APRN CERAMIST Assigned PCP 11/14/22 02/19/23 documented as of this encounter
--- OUTSIDE RECORDS SUMMARY | 2024-02-05 01:01 | XMS_ITS | Referral Summary ---
Author Organization [place] Address [address] [facility] [address] Care Team Providers Care Cake Stripper Name Role Phone Sukhwinder Gerard MD Unavailable [phone] Vane Black Primary Care Provider [phone] Allergies Active Allergy Reactions Criticality Noted Date Comments [place] Oil 04/27/2018 Other reaction(s): GI Upset [place] Oil 04/27/2018 Other reaction(s): GI Upset Crab Extract 04/27/2018 Other reaction(s): GI Upset Fish Oil Other (See Comments) 07/11/2018 Medications Medication Sig Dispensed Refills Start Date End Date Status ibuprofen (ADVIL/MOTRIN) 600 MG tablet Take 1 tablet (600 mg) by mouth every 6 hours as needed for moderate pain 20 tablet 11/12/2018 Active tiZANidine (ZANAFLEX) 2 MG tablet Take 2 mg by mouth 2 times daily as needed for muscle spasms Active hydrOXYzine (ATARAX) 25 MG tablet 11/27/2019 Active drospirenone-ethinyl estradiol (KALEIGH) 3-0.03 MG [...] in 2 hours. Max 3 tablets/24 hours. 11/27/2019 Active ondansetron (ZOFRAN-ODT) 4 MG ODT tabIndications:Nause a Take 1 tablet (4 mg) by mouth every 8 hours as needed for nausea 10 tablet 02/20/2020 Active Active Problems Problem Noted Date [...] CDT Plan of Treatment Not on file Procedures Procedure Name Priority Date/Time Associated Diagnosis Comments NEISSERIA GONORRHOEAE PCR Routine 01/08/2020 4:10 PM CDT Vaginal discharge Concern about STD in female without diagnosis from Last 3 Months or Most Recently Relevant to Health Maintenance Results * NEISSERIA GONORRHOEA PCR (01/08/2020 4:10 PM CDT) Specimen Descrip Vagina 01/08/20 4:12 PM CDT [facility] N Gonorrhea PCR Negative NEG^Negat gab 01/09/2020 1:59 PM CDT [facility] Comment: Negative for N. gonorrhoeae rRNA by supervisor tree fruit and nut farming mediated amplification. A negative result by supervisor tree fruit and nut farming mediated amplification does not preclude the presence of N. gonorrhoeae infection because results are dependent on proper and adequate collection, absence of inhibitors, and sufficient rRNA to be detected. Specimen from vagina (specimen) 01/08/2020 4:10 PM CDT 01/08/2020 4:11 PM CDT Keyana Ortiz PA-C LAB - MICRO GENER AL ORDERABLES [facility] [address] [place] [address], [facility] [address] [place] [address] from Last 3 Months or Most Recently Relevant to Health Maintenance Advance Directives For more information, please contact: [phone] * Full Code (Latest Code Status on File) Date Activated Date Inactivated Comments 07/23/2017 10:23 PM 07/26/2017 5:52 PM * Full Code Date Activated Date Inactivated Comments 04/29/2017 10:56 PM 05/06/2017 4:51 PM Care Teams Cake Stripper Relationship Specialty Start Date End Date Vane Black [place] [address] [place] [address] PCP - General Family Practice 05/12/23 Sukhwinder Gerard MD [address] [facility] [address] [place] [address] Gastroenterology 03/08/20
--- OUTSIDE RECORDS SUMMARY | 2024-02-05 01:01 | XMS_ITS | Clinical Summary ---
Author Organization [place] Address [address] [place] [address] Care Team Providers Care Firer Low Pressure Name Role Phone Sukhwinder Gerard MD Unavailable [phone] Vane Black Primary Care Provider [phone] Allergies Active Allergy Reactions Criticality Noted Date Comments [place] Oil 04/27/2018 Other reaction(s): GI Upset [place] Oil 04/27/2018 Other reaction(s): GI Upset Crab [...] Vaccine ( season) 2023 06/26/2022, 08/02/2021, 09/27/2020 CHLAMYDIA SCREENING 09/03/2023 09/03/2022, 01/08/2020, 01/08/2020, Additional history exists INFLUENZA VACCINE (Season Ended) 2024 06/26/2022, 08/25/2018, 07/24/2017, Additional history exists HEPATITIS B IMMUNIZATION Completed [...] on patient's age to complete this topic Procedures Procedure Name Priority Date/Time Associated Diagnosis Comments NEISSERIA GONORRHOEAE PCR Routine 01/08/2020 4:10 PM CDT Vaginal discharge Concern about STD in female without diagnosis from Last 3 Months or Most Recently Relevant to Health Maintenance Results * NEISSERIA GONORRHOEA PCR (01/08/2020 4:10 PM CDT) Specimen Descrip Vagina 01/08/20 20 4:12 PM CDT [facility] N Gonorrhea PCR Negative NEG^Negat gab 01/09/2020 1:59 PM CDT [facility] Comment: Negative for N. gonorrhoeae rRNA by lead assembler mediated amplification. A negative result by lead assembler mediated amplification does not preclude the presence of N. gonorrhoeae infection because results are dependent on proper and adequate collection, absence of inhibitors, and sufficient rRNA to be detected. Specimen from vagina (specimen) 01/08/2020 4:10 PM CDT 01/08/2020 4:11 PM CDT Keyana Ortiz PA-C LAB - MICRO GENER AL ORDERABLES [facility] [address] [place] [address], [facility] [address] [place], [place] [address] from Last 3 Months or Most Recently Relevant to Health Maintenance Advance Directives For more information, please contact: [phone] * Full Code (Latest Code Status on File) Date Activated Date Inactivated Comments 07/23/2017 10:23 PM 07/26/2017 5:52 PM * Full Code Date Activated Date Inactivated Comments 04/29/2017 10:56 PM 05/06/2017 4:51 PM Care Teams Firer Low Pressure Relationship Specialty Start Date End Date Vane Black PA [address] [place] [address] PCP - General Family Practice 05/12/23 Sukhwinder Gerard MD [address] [address] Gastroenterology 03/08/20
== END 2024-02-05 01:51 | disposition home or self-care (01) ==
PROVIDERS: Emergency Provider Internal Medicine; PCP Student in an Organized Health Care Education/Training Program
DX: M25.531 Pain in right wrist (principal)
CPT/HCPCS: 73110; 99283

== ENCOUNTER 2024-02-14 15:57 | Outpatient (CLI) | payer MEDICAID, SELFPAY ==
--- OUTSIDE RECORDS SUMMARY | 2024-02-20 07:09 | XMS_ITS | Encounter Summary ---
Author Organization [place] Address [address] [facility] [place] [address] Care Team Providers Care Global Security Architect Name Role Phone Lucy Valverde MD Primary Care Provider [phone] Marilou Quigley MD Primary Care Provider [phone] Lola Laurent PA-C Unavailable [phone] Lucy Valverde MD Unavailable [phone] Sukhwinder Gerard MD Unavailable [phone] Sukhwinder Gerard MD Unavailable [phone] Vane Fish APRN MEMBER SERVICES COORDINATOR Unavailable Un available Lucy Valverde MD Unavailable [phone] Lucy Valverde MD Unavailable [phone] Vane Fish APRN MEMBER SERVICES COORDINATOR Unavailable Un available Vane Black Primary Care Provider [phone] Encounter Details Date Type Department Care Team (Late st Contact Info) Description 10/04/2007 Abstract [facility] [address] [place] [address] Lucy Valverde MD [address] [place] [address] [place] [address] Social History Tobacco Use Types [...] documented as of this encounter Care Teams Global Security Architect Relationship Specialty Start Date End Date Lucy Valverde MD [address] [facility] [place] [address] PCP - General 08/23/07 04/28/17 Marilou Quigley MD [facility] [address] [place] [address] PCP - General 04/29/17 05/11/23 Vane Black PA [facility] [place] [address] PCP - General Family Practice 05/12/23 Lola Laurent PA-C [address] [facility] [place] [address] Assigned PCP 09/23/19 11/18/19 Lucy Valverde MD [address] [facility] [place] [address] Assigned PCP 11/19/19 11/16/20 Sukhwinder Gerard MD [address] [facility] [address] [place], [place] [address] Gastroenterology 03/08/20 Sukhwinder Gerard MD [facility] [address] [address] [place], [place] [address] Assigned Gastroenterology Provider 06/07/20 09/06/21 Vane Fish APRN MEMBER SERVICES COORDINATOR Assigned PCP 11/17/20 02/27/21 Lucy Valverde MD [address] [facility] [address] [address] [place] [address] Assigned PCP 02/28/21 07/31/22 Lucy Valverde MD [address] [facility] [place] [address] Assigned PCP 10/10/22 11/13/22 Vane Fish APRN MEMBER SERVICES COORDINATOR Assigned PCP 11/14/22 02/19/23 documented as of this encounter
--- OUTSIDE RECORDS SUMMARY | 2024-02-20 07:09 | XMS_ITS | Clinical Summary ---
Author Organization [place] Address [address] [facility] [place] [address] Care Team Providers Care Purchasing And Fiscal Clerk Name Role Phone Sukhwinder Gerard MD Unavailable [phone] Vane Black Primary Care Provider [phone] Allergies Active Allergy Reactions Criticality Noted Date Comments [place] Oil 04/27/2018 Other reaction(s): GI Upset [place] Oil 04/27/2018 Other reaction(s): GI Upset Crab [...] Descrip Vagina 01/08/20 20 4:12 PM CDT [facility] N Gonorrhea PCR Negative NEG^Negat gab 01/09/2020 1:59 PM CDT [facility] Comment: Negative for N. gonorrhoeae rRNA by latex thread machine operator mediated amplification. A negative result by latex thread machine operator mediated amplification does not preclude the presence of N. gonorrhoeae infection because results are dependent on proper and adequate collection, absence of inhibitors, and sufficient rRNA to be detected. Specimen from vagina (specimen) 01/08/2020 4:10 PM CDT 01/08/2020 4:11 PM CDT Keyana Ortiz PA-C LAB - MICRO GENER AL ORDERABLES [facility] [address] [place] [address], [facility] [address] [place], [place] [address] from Last 3 Months or Most Recently Relevant to Health Maintenance Advance Directives For more information, please contact: [phone] * Full Code (Latest Code Status on File) Date Activated Date Inactivated Comments 07/23/2017 10:23 PM 07/26/2017 5:52 PM * Full Code Date Activated Date Inactivated Comments 04/29/2017 10:56 PM 05/06/2017 4:51 PM Care Teams Purchasing And Fiscal Clerk Relationship Specialty Start Date End Date Vane Black PA [address] [place] [address] PCP - General Family Practice 05/12/23 Sukhwinder Gerard MD [address] [address] Gastroenterology 03/08/20
--- OUTSIDE RECORDS SUMMARY | 2024-02-20 07:09 | XMS_ITS | Referral Summary ---
Author Organization [place] Address [address] [facility] [place] [address] Care Team Providers Care Stand Up Comedian Name Role Phone Sukhwinder Gerard MD Unavailable [phone] Vane Black Primary Care Provider [phone] Allergies Active Allergy Reactions Criticality Noted Date Comments [place] Oil 04/27/2018 Other reaction(s): GI Upset [place] Oil 04/27/2018 Other reaction(s): GI Upset Crab [...] Specimen Descrip Vagina 01/08/20 4:12 PM CDT [facility] N Gonorrhea PCR Negative NEG^Negat gab 01/09/2020 1:59 PM CDT [facility] Comment: Negative for N. gonorrhoeae rRNA by adult care provider mediated amplification. A negative result by adult care provider mediated amplification does not preclude the presence of N. gonorrhoeae infection because results are dependent on proper and adequate collection, absence of inhibitors, and sufficient rRNA to be detected. Specimen from vagina (specimen) 01/08/2020 4:10 PM CDT 01/08/2020 4:11 PM CDT Keyana Ortiz PA-C LAB - MICRO GENER AL ORDERABLES [facility] [address] [place] [address], [facility] [address] [place] [address] from Last 3 Months or Most Recently Relevant to Health Maintenance Advance Directives For more information, please contact: [phone] * Full Code (Latest Code Status on File) Date Activated Date Inactivated Comments 07/23/2017 10:23 PM 07/26/2017 5:52 PM * Full Code Date Activated Date Inactivated Comments 04/29/2017 10:56 PM 05/06/2017 4:51 PM Care Teams Stand Up Comedian Relationship Specialty Start Date End Date [place] [address] [place] [address] PCP - General Family Practice 05/12/23 Sukhwinder Gerard MD [address] [facility] [address] [place] [address] Gastroenterology 03/08/20
--- OUTSIDE RECORDS SUMMARY | 2024-02-20 07:09 | XMS_ITS | Clinical Summary ---
Author Organization [facility] Address [place], [place] [address] Care Team Providers Care Assigner Name Role Phone November BUSINESS MANAGEMENT MANAGER Unavailable Vane Black Primary Care Provider [phone] Allergies Active Allergy Reactions Criticality Noted Date Comments [place] [facility] Upset 08/25/2018 Patient reports immediate stomach pain. [place] GI Upset 04/27/2018 [place] [facility] Upset 04/27/2018 Patient reports it feels like a rock when I eat it, for 48 hours and I cannot digest it. [place] GI Upset 04/27/2018 [place] GI Upset 08/25/2018 Patient reports it is severe. [place] Oil Other - Describe In Comment Field 07/11/2018 Golimumab Anaphylaxis High 01/17/2024 Hot, flushed, nauseated, disoriented, tingling in mouth and throat, slurred speech Trazodone Other - Describe In Comment Field 09/17/2023 Suicidal thoughts Medications Medication Sig Dispensed Refills Start Date End Date Status levonorgestrel intrauterine device (Mirena) 20 mcg/24 hours (7 yrs) 52 mg IUD Inject 1 Device intrauterine. 1 Active albuterol HFA (PRO-AIR; VENTOLIN; PROVENTIL) [...] mg capsule. 14 Capsule 6 4 Active adalimumab (Humira,CF, Pen) 40 mg/0.4 mL pnktIndications:Ank ylosing spondylitis, unspecified site of spine (HC) Inject 40 mg subcutaneous every 2 weeks. 2 Each 3 4 Active oxyCODONE (ROXICODONE) 5 mg immediate release tabletIndications:E ndometriosis determined by laparoscopy Take 1-2 Tablets (5-10 mg) by mouth every 4 hours if needed for Pain. 16 Tablet 4 Active rimegepant (NURTEC) 75 mg orally disintegrating tabletIndications:C oncussion without loss of consciousness, subsequent encounter,Chronic post-traumatic headache, not intractable,Work related injury,Migraine with aura and without status migrainosus, not intractable Place 75 mg on the tongue once every other day. 45 Tablet 4 Active rizatriptan (MAXALT MARBLEIZING MACHINE TENDER) 5 mg disintegrating tabletIndications:C oncussion without loss of consciousness, subsequent encounter,Chronic post-traumatic headache, not intractable,Work related injury Place 1 Tablet (5 mg) on the tongue 2 times daily if needed for Migraine. Give at minimum 2hrs apart. Max Dose: 30mg per 24hrs. 54 Tablet 4 Active suvorexant (BELSOMRA) 10 mg [...] mouth at bedtime. 90 Tablet 4 Active clonazePAM (KLONOPIN) 0.5 mg tabletIndications:C hronic post-traumatic stress disorder (PTSD) Take 1 Tablet (0.5 mg) by mouth once daily if needed for Anxiety. 14 Tablet 4 Active pregabalin (LYRICA) 25 mg capsuleIndications: Generalized anxiety disorder with panic attacks Take 1 Capsule (25 mg) by mouth three times daily. 42 Capsule 4 Active EPINEPHrine (EPIPEN) 0.3 mg/0.3 mL auto-injector Inject 0.3 mg intramuscular each time if needed. 1 02/10/20 24 Discontinu ed(*Patien t states no longer taking) clonazePAM (KLONOPIN) 0.5 mg tabletIndications:C hronic post-traumatic [...] 01/31/20 24 Discontinu ed(Reorder (E-cancel not sent)) rimegepant (NURTEC) 75 mg orally disintegrating tabletIndications:C oncussion without loss of consciousness, subsequent encounter,Chronic post-traumatic headache, not intractable,Work related injury,Migraine with aura and without status migrainosus, not intractable Place 75 mg on the tongue once every other day. 45 Tablet 4 02/15/20 24 Discontinu ed(Reorder (E-cancel not sent)) suvorexant (BELSOMRA) 10 mg tabletIndications:C oncussion without loss of consciousness, subsequent encounter,Work related injury,Insomnia due to medical condition Take 10 mg by mouth at bedtime. 90 Tablet 4 02/15/20 24 Discontinu ed(Reorder (E-cancel not sent)) tiZANidine (ZANAFLEX) 2 mg tabletIndications:C oncussion without loss of consciousness, subsequent encounter,Chronic post-traumatic headache, not intractable,Work related injury,Whiplash, subsequent encounter Take 1 Tablet (2 mg) by mouth at bedtime. 90 Tablet 4 02/15/20 24 Discontinu ed(Reorder (E-cancel not sent)) rizatriptan (MAXALT MARBLEIZING MACHINE TENDER) 5 mg disintegrating tabletIndications:C oncussion without loss of consciousness, subsequent encounter,Chronic post-traumatic headache, not intractable,Work related injury Place 1 Tablet (5 mg) on the tongue 2 times daily if needed for Migraine. Give at minimum 2hrs apart. Max Dose: 30mg per 24hrs. 54 Tablet 4 02/15/20 24 Discontinu ed(Reorder (E-cancel not sent)) rx oxyCODONE 5 mg (ROXICODONE) tablet (ED DC MED)Indications:Lef t lower quadrant abdominal pain Take 1 Tablet (5 mg) by mouth every 6 hours if needed for Pain. 4 Tablet 4 02/08/20 24 Discontinu ed(*Med complete/R egimen complete/L evel of care change) adalimumab (Humira,CF, Pen) 40 mg/0.4 mL pnktIndications:Ank ylosing spondylitis, unspecified site of spine (HC) Inject 40 mg subcutaneous every 2 weeks. 2 Each 3 4 02/03/20 24 Discontinu ed(Reorder (E-cancel not sent)) clonazePAM (KLONOPIN) 0.5 mg tabletIndications:C hronic post-traumatic stress disorder (PTSD) Take 1 Tablet (0.5 mg) by mouth once daily if needed for Anxiety. 14 Tablet 4 02/16/20 24 Discontinu ed(Reorder (E-cancel not sent)) pregabalin (LYRICA) 25 mg capsuleIndications: Generalized anxiety disorder with panic attacks Take 1 Capsule (25 mg) by mouth three times daily. 42 Capsule 4 02/16/20 24 Discontinu ed(Reorder (E-cancel not sent)) Active [...] Overview: Added automatically from request for surgery [id number] Anorexia nervosa, restrictin g type, in partial [...] Encounters Date Type Department Care Team Description 02/18/2024 [facility] [address] [place] [address] Vane Black PA Post op questions 02/18/2024 Telephone [facility] [address] [place] [address] Vane Black PA 02/15/2024 2:00 PM CDT Telemedicine [facility] [address] [facility] [address] [place] [address] Asya Owen MD Follow Up (Head injury doi 10/30/22, virtual visit, no vitals/) 02/15/2024 Travel 02/14/2024 10:10 AM CDT Anesthesia Event [facility] [address] [place] [address] Su Thorne MD Klinkner, Jacqueline Marie, ROSENDO 02/14/2024 10:05 AM CDT - 02/14/2024 11:20 AM CDT Surgery [facility] [address] [facility] [place] [id number] Fareed Eddy MD LAPAROSCOPIC DIAGNOSTIC 02/14/2024 8:47 AM CDT - 02/14/2024 12:24 PM CDT Hospital Encounter [facility] [place] [facility] [place] [id number] Fareed Eddy MD Status post laparoscopy (Primary Dx); Chronic pelvic pain in female; Endometriosis determined by laparoscopy Discharge Disposition: Home Self Care 02/14/2024 Nurse Triage [facility] [address] [place] [address] Vane Black PA Post-op Pain/problem 02/14/2024 Travel 02/12/2024 Refill [facility] [address] [facility] [address] [place] [address] Kendal Vallejo, BUSINESS MANAGEMENT MANAGER Refill Request (Clonazepam, Pregabalin) 02/09/2024 3:00 PM CDT Procedure Only [facility] [address] [place] [address] Cheryl Santo L Ac Acupuncture 02/09/2024 Travel 02/08/2024 8:15 AM CDT Preop Visit [facility] [address] [place] [address] Vane Black PA Preoperative Exam (02/14/24/POSSIBLE LYSIS OF ADHESIONS, Possible fulguration of implants/Dr. Eddy/[facility] /) 02/08/[address] [facility] [address] [place] [address] Asya Owen MD 02/08/2024 Transcribe Orders [facility] [address] [place] [address] Asya Owen MD 02/08/2024 Telephone [facility] [address] [facility] [address] [place] [address] Yoni, Kendal D, BUSINESS MANAGEMENT MANAGER Error-please disregard 02/07/2024 Travel 02/03/2024 10:30 AM CDT Procedure Only [facility] [address] [place] [id number] Cheryl Santo L Ac Acupuncture (Initial) 02/03/2024 Travel 01/31/2024 1:40 PM CDT Office Visit [facility] [address] [facility] [address] [place] [address] Carson Cardona MD Follow Up (Last visit 12/2023) 01/31/2024 Travel 01/27/2024 1:00 PM CDT Office Visit [facility] [address] [facility] [address] [place] [address] Fareed Eddy MD Consult (Endometriosis, PCOS/Cyst rupture and other overlay plastician conditions) 01/27/2024 Travel 01/25/2024 12:45 PM CDT Office Visit [facility] [address] [place] [id number] Vane Black PA Physical (23 Year Old/Pap/Medication management /PCOS/Endo- uterus pain /Non fasting ); Immunization/Injection 01/25/2024 Travel 01/20/2024 Orders Only [facility] [address] [place] [address] Carson Cardona MD <No scans attached> 01/17/2024 10:30 AM CDT Office Visit [facility] [address] [place] [address] Infusion Therapy (Simponi 200 mg #1/3) 01/16/2024 Travel 01/14/2024 Telephone [facility] [address] [place] [id number] Carson Cardona MD Infusion Therapy 01/03/2024 2:00 PM CDT Ancillary Procedure [facility] [address] [place] [id number] 01/03/2024 Travel 01/01/2024 3:46 PM CDT - 01/01/2024 8:18 PM CDT Emergency [facility] [address] [place] [address] Mimi Merino PA Left lower quadrant abdominal pain (Primary Dx) Discharge Disposition: Home Self Care 01/01/2024 Travel 01/01/2024 Nurse Triage [facility] [address] [place] [address] Vane Black PA Abdominal Pain 12/31/2023 Telephone [facility] [address] [place] [address] Vane Black PA Questions (X-RAY RESULTS) 12/29/2023 2:00 PM CDT Ancillary Procedure [facility] [address] [place] [address] 12/29/2023 1:10 PM CDT Office Visit [facility] [address] [place] [address] Vane Black PA Chest Pain (contusion - two times both times seen through [facility] ) 12/29/2023 Travel 12/28/2023 Telephone [facility] [address] [facility] [address] [place] [address] Carson Cardona MD Infusion Therapy 12/27/2023 8:20 AM CDT Office Visit [facility] [address] [facility] [address] [place] [address] Carson Cardona MD Consult (Consult - Spondyloarthropathy of SI Joint. /Referred By - JOSEMANUEL Dudley. ) 12/26/2023 Travel 12/09/2023 2:00 PM CDT Office Visit [facility] [address] [place] [address] Ricardo Petersen, PhD, LP Neuropsychological Assessment 12/09/2023 Travel 11/25/2023 1:00 PM CDT Office Visit [facility] [address] [place] [address] Asya Owen MD Follow Up (Head Injury DOI: 10/30/22) 11/25/2023 Travel 11/23/2023 8:30 AM CDT Office Visit [facility] [address] [place] [address] Ricardo Petersen, PhD, LP Neuropsychological Assessment 11/23/2023 Travel from Last 3 Months Immunizations Name Administration Dates Next Due COVID-19 Vaccine Spikevax (M oderna 50mcg/0.5mL) 12YO+ [id number] Formula PF 08/23/2023 COVID-19 vaccine (Moderna 100mcg/0.5mL) [...] Sex Assigned at Female 09/15/2023 10:11 AM HOSPITAL CLINIC ASSISTANT Gender Identity Female 09/15/2023 10:11 AM HOSPITAL CLINIC ASSISTANT Sexual Orientation Not on file Obstetrics History [...] Care Team (Late st Contact Info) Description 02/22/2024 2:00 PM CDT Telemedicine [facility] [address] [facility] [address] [place] [address] Kendal Vallejo, ISSAC [address] [facility] [address] [place] [address] 02/24/2024 2:15 PM CDT Office Visit [facility] [address] [address] Fareed Eddy MD [address] [address] 02/25/2024 10:30 AM CDT Procedure Only [facility] [address] [place] [address] Cheryl Santo L Ac [address] [place] [address] 02/29/2024 1:30 PM CDT Procedure Only [facility] [address] [place] [address] Cheryl Santo L Ac [address] [place] [address] 04/10/2024 12:40 PM CDT Office Visit [facility] [address] [place], [place] [id number] Carson Cardona MD [address] [place] [address] 04/18/2024 1:30 PM CDT Telemedicine [facility] [address] [place] [phone] Kendal Vallejo D, BUSINESS MANAGEMENT MANAGER [address] [place], [place] [address] 05/16/2024 2:00 PM CDT Office Visit [facility] [address] [facility] [address] [place] [address] Asya Owen MD [address] [facility] [address] [place] [address] Health Maintenance Due Date Last Done Comments COVID-19 vaccine series ( season) 2023 08/23/2023, 06/26/2022, 08/02/2021, Additional history exists Influenza for age 9-49 04/16/2024 , 06/26/2022, 04/25/2019, Additional history exists Depression screening for age 12+ 11/02/2024 11/03/2023, 08/06/2023, 04/22/2023, Additional history exists Chlamydia for age 16-24 01/24/2025 01/25/20 24, 09/03/2022, 09/26/2019, Additional history exists Pap test for age 21-65 01/24/2025 4, 05/30/2020 (Verified in Care Everywhere or Patient [...] CDT URINE Preop 02/14/2024 9:09 AM CDT SCAN-CARDIAC STRIP 02/14/2024 12 :00 AM CDT ACUPUNCTURE PLAN OF CARE Routine 02/10/2024 9:25 AM CDT Chronic post-traumatic headache, not intractable Work related injury Concussion without loss of consciousness, subsequent encounter Whiplash, subsequent encounter Chest wall pain DOPE FIRER THIN PREP PAP SCREEN IMAGED Routine 01/25/2024 [...] HIV-1/O/2, 4TH GENERATION Routine 09/03/2022 5:17 PM HOSPITAL CLINIC ASSISTANT Febrile illness Dysuria from Last 3 Months [...] of2 resultswithin the time period is included. ,URIN E Negative Negative 02/14/2024 9:19 AM CDT [facility] Urine URINE SPECIMEN / Unknown Non-Blood / Unknown 02/14/2024 9:09 AM CDT 02/14/2024 9:09 AM CDT Fareed Eddy MD URINE [facility] [address] [place] [address] * SCAN-CARDIAC STRIP (02/14/2024 12:00 AM CDT) Narrative 02/14/2024 12:00 AM CDT Ordered by an unspecified provider. Other Clinical Staff OTHER * (ABNORMAL) DOPE FIRER THIN PREP PAP SCREEN IMAGED [[id number]] (01/25/2024 1:25 PM CDT) Case Report Gynecologic Cytology Report ? Case: [id number] ? Authorizing Provider: ??Vane Black PA ?? Collected: ? 01/25/2024 1325 ? Ordering Location: ? [facility] ?? Received: ?01/25/2024 1409 ? Clinic ? First Screen: ?Jenelle Perry ? Pathologist: ? Deandra Herrera, MD ? Specimen: ?DOPE FIRER ThinPrep Vial Screening, Cervical ? 02/07/2024 11:04 AM CDT [facility] INTERPRETATION/ RESULT LOW GRADE SQUAMOUS INTRAEPITHELIAL LESION (LSIL)(A) (none) 02/07/2024 11:04 AM T [facility] IMEN ADEQUACY Satisfactory for evaluation Endocervical component present 02/07/2024 11:04 AM CDT [facility] Date of LMP Unknown 02/07/2024 11:04 AM CDT [facility] Last Pap Date 05/30/2020 02/07/2024 11:04 AM CDT [facility] Last Pap Result NIL 11:04 AM CDT [facility] Abnormal Pap or [place] Bx in last 5 years No 02/07/2024 11:04 AM CDT [facility] Menstrual Status Hormonally Suppressed 02/07/2024 11:04 AM CDT [facility] [place] Bx Done Today No 02/07/2024 11:04 AM T [facility] Additional Information None given 02/07/2024 11:04 AM T [facility] Comment: Cytology is screened at [facility], Central Laboratory - [address], [place] [address] and [facility] - [address] [place] [address] and [facility] - [address] [place] [address] Interpreted at [facility], Central Laboratory - [address], [place] [address] Automated Review Successful 02/07/2024 11:04 AM T [facility] Comment:Specimen processed s uccessfully by automated regional otr company driver device, ThinPrep Imaging System, [employer] Note The pap test is a [...] and malignant lesions. 02/07/2024 11:04 AM CDT [facility] Other (Cervical) Non-Blood / Unknown 01/25/2024 1:25 PM CDT 01/25/2024 2:09 PM CDT Vane ABERNATHY PATHOLOGY/CYTOLOG Y Performing Organization Address [facility] Co de Phone Number [facility] [address] [place] [address], [place] * GC CHLAMYDIA DNA PCR [[id number]] (01/25/2024 1:25 PM CDT) CHLAMYDIA PROBE Negative 11:19 AM CDT [facility] N GONORRHOEAE PROBE Negative 01/26/2024 11:19 AM CDT [facility] Other VAGINAL SWAB / Unknown Non-Blood / Unknown 01/25/2024 1:25 PM CDT 01/25/2024 2:09 PM CDT Vane ABERNATHY MICROBIOLOGY Performing Organization Address [facility] de Phone Number [facility] [address] [place] [address], [place] * CT CHEST WO (01/03/2024 2:43 PM CDT) Anatomical Region Laterality Modality CHEST, THORAX, HEART Computed To mography 01/03/2024 4:31 PM CDT Narrative 01/03/2024 4:31 PM CDT For Patients: ??As a result of the 21st Century Cures Act, medical imaging exams and [...] MD @ 01/03/2024 4:31:30 PM (Electronically Signed) Vanethomas Mireles Sofia ABERNATHY CT * CT ABD/PELVIS W IV [...] - 11.0 thou/cu mm 01/01/2024 4:[address] [facility] RED BLOOD COUNT 4.87 4.00 - 5.20 mil/cu mm 01/01/2024 4:[address] [facility] HEMOGLOBIN 15.1 12.0 - 16.0 g/dL 01/01/2024 4:[address] [facility] HEMATOCRIT 45.5 33.0 - 51.0 % 01/01/2024 4:[address] [facility] MCV 93 80 - 100 fL 01/01/2024 4:[address] [facility] MCH 31.0 26.0 - 34.0 pg 01/01/2024 4:[address] [facility] MCHC 33.2 32.0 - 36.0 g/dL 01/01/2024 4:[address] [facility] RDW 13.4 11.5 - 15.5 % 01/01/2024 4:03 PM CDT [facility] PLATELET COUNT 318 140 - 440 thou/cu mm 01/01/2024 4:03 PM T [facility] MPV 9.0 6.5 - 11.0 fL 01/01/2024 4:03 PM T [facility] % NEUT 54.3 % 01/01/2024 4:03 PM T [facility] % LYMPH 34.0 % 01/01/2024 4:03 PM T [facility] % MONO 8.0 % 01/01/2024 4:[address] [facility] % EOS 3.2 % 01/01/2024 4:[address] [facility] % BASO 0.5 % 01/01/2024 4:03 PM T [facility] ABSOLUTE NEUTROPHILS 6.0 1.7 - 7.0 thou/cu mm 01/01/2024 4:03 PM T [facility] ABSOLUTE LYMPHOCYTES 3.8(H) 0.9 - 2.9 thou/cu mm 01/01/2024 4:03 PM T [facility] ABSOLUTE MONOCYTES 0.9(H) <0.9 thou/cu mm 01/01/2024 4:[address] [facility] ABSOLUTE EOSINOPHILS 0.4 <0.5 thou/cu mm 01/01/2024 4:03 PM T [facility] ABSOLUTE BASOPHILS 0.1 <0.3 thou/cu mm 01/01/2024 4:03 PM T [facility] Blood BLOOD SPECIMEN / Unknown Venipuncture / Unknown 01/01/2024 3:56 PM CDT 01/01/2024 3:59 PM CDT Mimi ABERNATHY HEMATOLOGY [facility] [address] [place] [address] * UA W/ SEDIMENT EXAM REFLEXED PER CRITERIA (01/01/2024 3:56 PM CDT) COLOR Yellow Yellow Color 01/01/2024 4:[address] [facility] CLARITY Clear Clear Clarity 01/01/2024 4:[address] [facility] SPECIFIC GRAVITY,URINE 1.020 1.010, 1.015, 1.020, 1.025 01/01/2024 4:[address] [facility] PH,URINE 5.5 6.0, 7.0, 8.0, 5.5, 6.5, 7.5, 8.5 01/01/2024 4:[address] [facility] UROBILINOGEN, QUALITATIVE Normal Normal EU/dl 01/01/2024 4:[address] [facility] PROTEIN, URINE Negative Negative mg/dL 01/01/2024 4:[address] [facility] GLUCOSE, URINE Negative Negative mg/dL 01/01/2024 4:[address] [facility] KETONES,URINE Negative Negative mg/dL 01/01/2024 4:[address] [facility] BILIRUBIN,URI NE Negative Negative 01/01/2024 4:[address] [facility] OCCULT BLOOD,URINE Negative Negative 01/01/2024 4:[address] [facility] NITRITE Negative Negative 01/01/2024 4:[address] [facility] LEUKOCYTE ESTERASE Negative Negative 01/01/2024 4:[address] [facility] Urine URINE SPECIMEN / Unknown Non-Blood / Unknown 01/01/2024 3:56 PM CDT 01/01/2024 3:59 PM CDT Mimi ABERNATHY URINE [facility] [address] [place] [address] * BASIC METABOLIC PANEL (01/01/2024 3:56 PM CDT) SODIUM 139 136 - 145 mmol/L 01/01/2024 4:[address] [facility] POTASSIUM 4.0 3.5 - 5.1 mmol/L 01/01/2024 4:18 PM T [facility] CHLORIDE 106 98 - 107 mmol/L 01/01/2024 4:[address] [facility] CO2,TOTAL 25 22 - 29 mmol/L 01/01/2024 4:[address] [facility] ANION GAP 8 5 - 18 01/01/2024 4:[address] [facility] GLUCOSE 88 70 - 99 mg/dL 01/01/2024 4:[address] [facility] CALCIUM 9.4 8.6 - 10.0 mg/dL 01/01/2024 4:[address] [facility] BUN 9 6 - 20 mg/dL 01/01/2024 4:[address] [facility] CREATININE 0.66 0.50 - 0.90 mg/dL 01/01/2024 4:[address] [facility] BUN/CREAT RATIO 14 10 - 20 4:[address] [facility] eGFR >90 >90 mL/min/1.7 3m2 01/01/2024 4:[address] [facility] Comment:As of 2021, eG FR is calculated by the CKD-EPI creatinine equation without race adjustment. ??eGFR can be influenced by muscle mass, exercise, and diet. ??The reported eGFR is an estimation only and is only applicable if the renal function is stable. Blood BLOOD SPECIMEN / Unknown Venipuncture / Unknown 01/01/2024 3:56 PM CDT 01/01/2024 3:59 PM CDT Mimi ABERNATHY CHEMISTRY [facility] [address] [place] [address] * XR CHEST 2 VIEWS PA AND [...] MITOGEN 10.00 IU/mL 12/28/2023 9:04 AM CDT [facility] Blood BLOOD SPECIMEN / Unknown Venipuncture / Unknown 12/27/2023 9:25 AM CDT 12/27/2023 9:25 AM CDT Carson Cardona MD CHEMISTRY [facility] [address] [place] [address], * QFT TB2 PERFORMABLE (12/27/2023 9:25 AM CDT) TB2 0.08 IU/mL 12/28/2023 9:04 AM CDT [facility] Blood BLOOD SPECIMEN / Unknown Venipuncture / Unknown 12/27/2023 9:25 AM CDT 12/27/2023 9:25 AM CDT Carson Cardona MD CHEMISTRY Performing Organization Address City/[facility]/ZIP Co de Phone Number [facility] [address] [place] [address], * QFT TB1 PERFORMABLE (12/27/2023 9:25 AM CDT) TB1 0.05 IU/mL 12/28/2023 9:05 AM CDT [facility] Blood BLOOD SPECIMEN / Unknown Venipuncture / Unknown 12/27/2023 9:25 AM CDT 12/27/2023 9:25 AM CDT Carson Cardona MD CHEMISTRY Performing Organization Address City/[facility] Co de Phone Number [facility] [address] [place] [address], * QUANTIFERON TB GOLD PLUS (12/27/2023 9:25 AM CDT) QFTP NIL 0.03 12/28/2023 9:16 AM CDT [facility] TB1 0.05 IU/mL 12/28/2023 9:16 AM CDT [facility] TB2 0.08 IU/mL 12/28/2023 9:16 AM CDT [facility] NTRAL LABORATORY MITOGEN 10.00 IU/mL 12/28/2023 9:16 AM CDT [facility] QFTP TB AG1 - NIL 0.02 024 9:16 AM CDT [facility] NTRSC LABORATORY TB1-NIL % OF NIL 67 % 12/28/19 24 9:16 AM CDT [facility] QFTP TB AG2 - NIL 0.05 024 9:16 AM CDT [facility] TB2-NIL % OF NIL >100 % 12/28/19 24 9:16 AM CDT [facility] QFTP MITOGEN - NIL 9.97 2023 9:16 AM CDT [facility] QFTP QUANTIFERON INTERPRETATION Negative Negative 12/28/2023 9:16 AM CDT [facility] Blood BLOOD SPECIMEN / Unknown Venipuncture / Unknown 12/27/2023 9:25 AM CDT 12/27/2023 9:25 AM CDT Narrative [facility] - 12/28/2023 9:16 AM CDT M. tuberculosis [...] Carson Cardona MD CHEMISTRY Performing Organization Address City/[facility]/ZIP Co de Phone Number [facility] [address] [place] [address], [place] * HBSAG (HBS) (12/27/2023 9:25 AM CDT) HBSAG Nonreactive Nonreactive 12/27/2023 5:24 PM CDT [facility] Blood BLOOD SPECIMEN / Unknown Venipuncture / Unknown 12/27/2023 9:25 AM CDT 12/27/2023 9:25 AM CDT Carson Cardona MD SEND OUTS Performing Organization Address City/[facility]/ZIP Co de Phone Number [facility] [address] [place] [address], [place] * ANTI HCV (12/27/2023 9:25 AM CDT) HEPATITIS C ANTIBODY Non-Reacti ve Non-React gab 12/27/2023 5:26 PM CDT [facility] Comment:Please note, per www .CDC.gov: If [...] Cardona MD SEND OUTS Performing Organization Address [facility] Co de Phone Number [facility] [address] [place] [address], [place] * ANTI HBS QUANT AHS (12/27/2023 9:25 AM CDT) Pathologist [facility] ANTI HBS QUANT 9.10 mIU/mL 12/27/2023 7:02 PM CDT [facility] Blood BLOOD SPECIMEN / Unknown Venipuncture / Unknown 12/27/2023 9:25 AM CDT 12/27/2023 9:25 AM CDT Narrative [facility] - 12/27/2023 7:02 PM CDT <8.5 [...] to retesting. Carson Cardona MD SEND OUTS Performing Organization Address [facility] Co de Phone Number [facility] [address] [place] [address], [place] * HIV-1/O/2, 4TH GENERATION (09/03/2022 5:17 PM HOSPITAL CLINIC ASSISTANT) HIV Scr 4th Gen Non Reactive Non Reactive 09/09/2022 10:06 PM HOSPITAL CLINIC ASSISTANT [facility] Comment: HIV Negative HIV-1/HIV-2 antibodies and HIV-1 p24 antigen were NOT detected. There is no laboratory evidence of HIV infection. Blood BLOOD SPECIMEN / Unknown Venipuncture / Unknown 09/03/2022 5:17 PM HOSPITAL CLINIC ASSISTANT 09/03/2022 5:23 PM HOSPITAL CLINIC ASSISTANT Narrative [facility] - 09/09/2022 10:06 PM HOSPITAL CLINIC ASSISTANT Performed at: ??[address] ??[id number] Joggle Press Operator: Anderson Johnson MD, Phone: ??[phone] Carmela Arriola MD LABORATORY Performing Organization Address City/State/[facility] Co de Phone Number [facility] ([facility]) [address] [place] [address] from Last 3 Months or Most Recently Relevant to Health Maintenance Advance Directives * Full Code (Latest Code Status on File) Date Activated Date Inactivated Comments 02/14/2024 8:57 AM 02/14/2024 9:15 PM Question Answer Comments Code Status Discussion: Reviewed Preferences * Full Code Date Activated Date Inactivated Comments 04/14/2023 12:27 PM 04/14/2023 5:32 PM Question Answer Comments Code Status Discussion: Discussed Care Teams Assigner Relationship Specialty Start Date End Date Vane Black PA [address] [place] [address] PCP - General Physician Splicing Machine Operator 02/15/23 Yoni, November D, ISSAC [address] [facility] [address] [place] [address] Mental Health Provider Nurse Practitioner - Mental Health 03/18/22
--- OUTSIDE RECORDS SUMMARY | 2024-02-20 07:09 | XMS_ITS | Encounter Summary ---
Author Organization [facility] Address [address] [facility] [address] Care Team Providers Care Template Clerk Name Role Phone Marilou Quigley MD Primary Care Provider [phone] Lola Laurent-C Unavailable [phone] Lucy Valverde MD Unavailable [phone] Sukhwinder Gerard MD Unavailable [phone] Sukhwinder Gerard MD Unavailable [phone] Vane Fish APRN [place] Unavailable Un available Lucy Valverde MD Unavailable [phone] Lucy Valverde MD Unavailable [phone] Vane Fish APRN [employer] Unavailable Un available Vane Black Primary Care Provider [phone] Reason for Visit * Reason Onset Date Comments Mental Health Problem 04/29/2017 Encounter Details Date Type Department Care Team ([facility] st Contact Info) Description 04/29/2017 Telephone [facility] Behavioral Health Intake [address] [place] [id number] Generic, Behavioral Intake, Mental Health Problem Social [...] Saxena - 04/29/2017 5:53 PM CDT S: [facility] ED called to place a 17 yr old female for inpatient mental health treatment. B: Pt was BIB parents to the [facility] ED due to suicidal ideation with [...] documented as of this encounter Care Teams Template Clerk Relationship Specialty Start Date End Date Marilou Quigley MD [facility] [address] [place] [address] PCP - General 04/29/17 05/11/23 Vane Black PA [address] [place] [address] PCP - General Family Practice 05/12/23 Lola Laurent PA-C [address] [place] [address] Assigned PCP 09/23/19 11/18/19 Lucy Valverde MD [address] [place] [address] Assigned PCP 11/19/19 11/16/20 Sukhwinder Gerard MD [address] [place] [address] Gastroenterology 03/08/20 Sukhwinder Gerard MD [facility] [address] [address] [place] [address] Assigned Gastroenterology Provider 06/07/20 09/06/21 Vane Fish APRN [place] Assigned PCP 11/17/20 02/27/21 Lucy Valverde MD [address] [place] [address] Assigned PCP 02/28/21 07/31/22 Lucy Valverde MD [address] [place] [address] Assigned PCP 10/10/22 11/13/22 Vane Fish APRN [place]OPER Assigned PCP 11/14/22 02/19/23 documented as of this encounter
== END 2024-02-14 15:58 | disposition home or self-care (01) ==
LOC: AMB 02-20 07:07
PROVIDERS: PCP Student in an Organized Health Care Education/Training Program; Visit Provider Family Medicine
DX: T81.31XA Disruption of external operation (surgical) wound, not elsewhere classified, initial encounter (principal); R51.9 Headache, unspecified; R42 Dizziness and giddiness
CPT/HCPCS: A0425; A0429

== ENCOUNTER 2024-02-14 16:18 | Emergency (ER) | payer MEDICAID, SELFPAY ==
--- NOTE | 2024-02-14 16:24 | ED_ITS ---
HPI - General Adult General Time Seen by Provider: 16:24 Date Seen: 02/14/24 Chief complaint: Post Op Complication Stated complaint: Bleeding post op Time Seen by Provider: 02/14/24 16:24 Source: patient, EMS, RN notes reviewed and old records reviewed Mode of arrival: EMS Limitations: no limitations History of Present Illness HPI narrative: 24-year-old female with history of bipolar disorder and anxiety who comes in with postoperative bleeding. Patient had what sounds like an exploratory laparoscopy today for possible endometriosis, noted some bleeding on the inferior edge of the incision site. Also had lightheadedness when she was walking around at the store earlier. No chest pain or shortness of breath with this. No nausea vomiting. The patient has not eaten anything other than part of a piece of cake today. Related Data Home Medications ?Medication ?Instructions ?Recorded ?Confirmed albuterol sulfate .ROUTE 05/26/22 clonazepam 0.5 mg tablet mg 05/26/22 levothyroxine 50 mcg tablet mcg 05/26/22 lithium carbonate 300 mg capsule mg 05/26/22 sumatriptan succinate 100 mg tablet mg PO 05/26/22 Previous Rx's ?Medication ?Instructions ?Recorded cephalexin 500 mg capsule 500 mg PO TID 6 days #18 caps 12/18/22 fluconazole 150 mg tablet 150 mg PO DAILY #1 tab 12/18/22 Allergies Allergy/AdvReac Type Severity Reaction Status Date / Time trazodone Allergy Intermediate Verified 02/14/24 16:31 [facility] Medical History Allergic reaction to allergy skin test ?T78.49XA - Other allergy, initial encounter (ICD-10) Surgical History History of tonsillectomy (2009) ?Z90.89 - Acquired absence of other organs (ICD-10) History of spinal fusion for scoliosis (2011) ?Z98.1 - Arthrodesis status (ICD-10) ?Z87.39 - Personal history of other diseases of the musculoskeletal system and connective tissue (ICD-10) Family History Mother Thyroid disease Father Asthma Depression Sister Asthma Autism spectrum disorder Maternal Grandfather Depression High cholesterol High blood pressure Maternal Grandmother Depression High cholesterol High blood pressure Other Coronary artery disease Social History Smoking Status: Current every day smoker Do you use any of these nicotine containing products: None and Vaping Products Second hand tobacco smoke exposure: No How often do you have a drink containing alcohol: 2-4 times a month How often do you have six or more drinks on one occasion: Less than monthly AUDIT-C Alcohol total score: 3 Non-prescribed substance use: marijuana (any form) service: No Exam Narrative: Exam Narrative: General: Well-developed and well-nourished, no acute distress Head: Atraumatic and normocephalic Eyes: Pupils are equal reactive, extraocular motions intact, conjunctiva clear ENT: External nose and ears are normal, posterior pharynx without erythema or exudate Neck: No midline cervical tenderness, full spontaneous range of motion the neck, trachea midline, no adenopathy Heart: Regular rate and rhythm no murmurs or thrills Lungs: Clear to auscultation bilaterally without wheezes or crackles Abdomen: Soft, nontender, nondistended with active bowel sounds. On the distal edge of the umbilical incision there is trace slow venous ooze from the skin. Musculoskeletal: No tenderness, deformity, or edema Neurologic: Awake, alert, and oriented x3, no gross focal neurologic deficits, cranial nerves intact as tested Psych: Mood and affect are appropriate Skin: No rashes Const: Vital Signs, click to edit/add: Vital Signs - 24 hr 02/14/24 16:28 Temperature 98.1 F Pulse Rate [Pulse Oximeter] 86 Respiratory Rate 18 Blood Pressure [Ri ght Upper Arm] 127/78 Pulse Oximetry 96 Oxygen Delivery Me thod Room Air Course Course ED Course: Patient seen and examined, prior records are reviewed including emergency department visit from February 04 when patient was seen with wrist pain that at th at time and been going on for several weeks. Patient presents today with some bleeding from her umbilical incision site. There is a trace amount of venous bleeding from the skin on the distal edge of the incision. Dermabond was applied with resolution of bleeding. Patient has had a near syncopal episode prior to coming emergency department where she became lightheaded while she was out shopping. She has not anything to eat today other than part of a piece of cake. She denies chest pain, palpitations, nausea, vomiting, or diarrhea. She has not taken any of the oxycodone that she prescribed. Likely near syncopal episode related to poor oral intake today. The patient will be given something to eat and drink department and plan for discharge. Reevaluation(s) Time of Reevaluation #1: 17:16 Reevaluation #1: Patient recheck, up and ambulating, no more bleeding from her incision site. Time of Reevaluation #2: 17:31 Reevaluation #2: Patient rechecked, no further bleeding, tolerating oral intake and stable for discharge Vital Signs Vital signs: Initial Vital Signs Temperature 98.1 F 02/14/24 16:28 Temperature Source Oral 02/14/24 16:28 Pulse Rate 86 02/14/24 16:28 Pulse Rhythm Regular 02/14/24 16:28 Respiratory Rate 18 02/14/24 16:28 Blood Pressure 127/78 02/14/24 16:28 Blood Pressure Mean 94 02/14/24 16:28 Blood Pressure Position Semi-Fowlers 02/14/24 16:28 Pulse Oximetry 96 02/14/24 16:28 Oxygen Delivery Method Room Air 02/14/24 16:28 Vital Signs Temperature 98.1 F 02/14/24 16:28 Pulse Rate 86 02/14/24 16:28 Respiratory Rate 18 02/14/24 16:28 Blood Pressure 127/78 02/14/24 16:28 Pulse Oximetry 96 02/14/24 16:28 Oxygen Delivery Method Room Air 02/14/24 16:28 Temperature 98.1 F 02/14/24 16:28 Pulse Rate 86 02/14/24 16:28 Respiratory Rate 18 02/14/24 16:28 Blood Pressure 127/78 02/14/24 16:28 Pulse Oximetry 96 02/14/24 16:28 Oxygen Delivery Method Room Air 02/14/24 16:28 Discharge Plan Discharge Clinical Impression: Postoperative bleeding from incision, Near syncope Patient Disposition: Home, Self-Care Condition: Stable Instructions: Skin Adhesive Care (ED) Additional Instructions: Return to eating and drinking normally today. Take medications as prescribed. Cool packs to the abdomen to help with pain. Avoid alcohol and caffeine for the next 24 hours Activity Level: No strenuous activity Prescriptions: No Action albuterol sulfate .ROUTE sumatriptan succinate 100 mg tablet PO clonazepam 0.5 mg tablet lithium carbonate 300 mg capsule Patient Comments: TAKE 1 CAPSULE BY MOUTH AT BEDTIME FOR 3 DAYS. THEN INCREASE TO 2 CAPSULES BY MOUTH AT BEDTIME levothyroxine 50 mcg tablet cephalexin 500 mg capsule 500 mg PO TID 6 Days Qty: 18 0RF fluconazole 150 mg tablet 150 mg PO DAILY Qty: 1 1RF Follow Up/Referrals: Vane Black PA-C [Primary Care Provider] - Stand Alone Forms: [facility] Info Instructions
[2024-02-14 16:28] VITALS: BP 127/78; PULSE 86; RESP 18; TEMP 36.7; O2SAT 96
--- OUTSIDE RECORDS SUMMARY | 2024-02-14 16:45 | XMS_ITS | Referral Summary ---
Author Organization [place] Address [address] [place] [address] Care Team Providers Care Title Abstractor Name Role Phone Sukhwinder Gerard MD Unavailable [phone] Vane Black Primary Care Provider [phone] Allergies Active Allergy Reactions Criticality Noted Date Comments [place] Oil 04/27/2018 Other reaction(s): GI Upset [place] Oil 04/27/2018 Other reaction(s): GI Upset Crab [...] Specimen Descrip Vagina 01/08/20 4:12 PM CDT [facility] N Gonorrhea PCR Negative NEG^Negat gab 01/09/2020 1:59 PM CDT [facility] Comment: Negative for N. gonorrhoeae rRNA by beater and pulper feeder mediated amplification. A negative result by beater and pulper feeder mediated amplification does not preclude the presence of N. gonorrhoeae infection because results are dependent on proper and adequate collection, absence of inhibitors, and sufficient rRNA to be detected. Specimen from vagina (specimen) 01/08/2020 4:10 PM CDT 01/08/2020 4:11 PM CDT Keyana Ortiz PA-C LAB - MICRO GENER AL ORDERABLES [facility] [address] [place] [address], [facility] [address] [place] [address] from Last 3 Months or Most Recently Relevant to Health Maintenance Advance Directives For more information, please contact: [phone] * Full Code (Latest Code Status on File) Date Activated Date Inactivated Comments 07/23/2017 10:23 PM 07/26/2017 5:52 PM * Full Code Date Activated Date Inactivated Comments 04/29/2017 10:56 PM 05/06/2017 4:51 PM Care Teams Title Abstractor Relationship Specialty Start Date End Date Vane Black [place] [address] PCP - General Family Practice 05/12/23 Sukhwinder Gerard MD [address] [facility] [address] [place] [address] Gastroenterology 03/08/20
--- OUTSIDE RECORDS SUMMARY | 2024-02-14 16:45 | XMS_ITS | Clinical Summary ---
Author Organization [place] Address [address] [place] [address] Care Team Providers Care Strip Tank Tender Name Role Phone Sukhwinder Gerard MD Unavailable [phone] Vane Black Primary Care Provider [phone] Allergies Active Allergy Reactions Criticality Noted Date Comments [place] Oil 04/27/2018 Other reaction(s): GI Upset [place] Oil 04/27/2018 Other reaction(s): GI Upset Crab [...] 01/08/2020, 01/08/2020, Additional history exists INFLUENZA VACCINE (#1) 2024 2, 08/25/2018, 07/24/2017, Additional history exists HEPATITIS B [...] Descrip Vagina 01/08/20 20 4:12 PM CDT [facility] N Gonorrhea PCR Negative NEG^Negat gab 01/09/2020 1:59 PM CDT [facility] Comment: Negative for N. gonorrhoeae rRNA by emergency specialist mediated amplification. A negative result by emergency specialist mediated amplification does not preclude the presence of N. gonorrhoeae infection because results are dependent on proper and adequate collection, absence of inhibitors, and sufficient rRNA to be detected. Specimen from vagina (specimen) 01/08/2020 4:10 PM CDT 01/08/2020 4:11 PM CDT Keyana Ortiz PA-C LAB - MICRO GENER AL ORDERABLES [facility] [address] [place] [address], [facility] [address] [place], [place] [address] from Last 3 Months or Most Recently Relevant to Health Maintenance Advance Directives For more information, please contact: [phone] * Full Code (Latest Code Status on File) Date Activated Date Inactivated Comments 07/23/2017 10:23 PM 07/26/2017 5:52 PM * Full Code Date Activated Date Inactivated Comments 04/29/2017 10:56 PM 05/06/2017 4:51 PM Care Teams Strip Tank Tender Relationship Specialty Start Date End Date Vane Black PA [address] [place] [address] PCP - General Family Practice 05/12/23 Sukhwinder Gerard MD [address] [address] Gastroenterology 03/08/20
--- OUTSIDE RECORDS SUMMARY | 2024-02-14 16:45 | XMS_ITS | Clinical Summary ---
Author Organization [facility] Address [place], [place] [address] Care Team Providers Care Business Analytics Analyst Name Role Phone November VAN DRIVER HELPER Unavailable Vane Black Primary Care Provider [phone] Allergies Active Allergy Reactions Criticality Noted Date Comments Bock GI Upset 08/25/2018 Patient reports immediate stomach pain. Bock Oil GI Upset 04/27/2018 Sidney GI Upset 04/27/2018 Patient reports it feels like a rock when I eat it, for 48 hours and I cannot digest it. Crab GI Upset 04/27/2018 Lactose GI Upset 08/25/2018 Patient reports it is severe. Plymouth Oil Other - Describe In Comment Field 07/11/2018 Golimumab Anaphylaxis High 01/17/2024 Hot, flushed, nauseated, disoriented, tingling in mouth and throat, slurred speech Trazodone Other - Describe In Comment Field 09/17/2023 Suicidal thoughts Medications Medication Sig Dispensed Refills Start Date End Date Status oxyCODONE (ROXICODONE) 5 mg immediate release tabletIndications: Endometriosis determined by laparoscopy Take 1-2 Tablets (5-10 mg) by mouth every 4 hours if needed for Pain. 16 Tablet 4 Active levonorgestrel intrauterine device (Mirena) 20 mcg/24 hours (7 yrs) 52 mg IUD Inject 1 Device intrauterine. 1 Suspended EPINEPHrine (EPIPEN) 0.3 mg/0.3 mL auto-injector Inject 0.3 mg intramuscular each time if needed. 1 02/10/20 24 Discontinued (*Patient states no longer taking) albuterol HFA (PRO-AIR; VENTOLIN; PROVENTIL) 90 mcg/actuation inhalerIndications :Wheezing Inhale 2 Puffs by mouth every 4 hours if needed for Shortness Of Breath. 2 Each 1 3 Suspended Additional Information pantoprazole (PROTONIX) 40 mg delayed-release tabletIndications: Abdominal pain, epigastric TAKE 1 TABLET(40 MG) BY MOUTH EVERY DAY 90 Tablet 3 3 Suspended Additional Information diclofenac topical (VOLTAREN) 1 % gelIndications:Cos tochondritis Apply 2 g topically to affected area(s) four times daily. 100 g 3 Suspended Additional Information ondansetron (ZOFRAN ODT) 4 mg disintegrating tabletIndications: Nausea Place 1 Tablet (4 mg) on the tongue every 8 hours if needed for Nausea/Vomiting. 15 Tablet 4 Suspended Additional Information clonazePAM (KLONOPIN) 0.5 mg tabletIndications: Chronic post-traumatic stress disorder (PTSD) Take 1 Tablet (0.5 mg) by mouth once daily if needed for Anxiety. 14 Tablet 5 4 01/31/20 24 Discontinued (Reorder (E-cancel not sent)) lithium carbonate 600 mg capsuleIndications :Bipolar 1 disorder, mixed, moderate (HC) Take one capsule by mouth at bedtime. 14 Capsule 6 4 Suspended Additional Information pregabalin (LYRICA) 25 mg capsuleIndications :Generalized anxiety disorder with panic attacks Take 1 Capsule (25 mg) by mouth three times daily. 42 Capsule 5 4 01/31/20 24 Discontinued (Reorder (E-cancel not sent)) lithium carbonate (LITHONATE) 300 mg capsuleIndications :Bipolar 1 disorder, mixed, moderate (HC) Take 1 Capsule (300 mg) by mouth at bedtime. Take in addition to a 600 mg capsule. 14 Capsule 6 4 Suspended Additional Information rimegepant (NURTEC) 75 mg orally disintegrating tabletIndications: Concussion without loss of consciousness, subsequent encounter,Chronic post-traumatic headache, not intractable,Work related injury,Migraine with aura and without status migrainosus, not intractable Place 75 mg on the tongue once every other day. 45 Tablet 4 Suspended Additional Information suvorexant (BELSOMRA) 10 mg tabletIndications: Concussion without loss of consciousness, subsequent encounter,Work related injury,Insomnia due to medical condition Take 10 mg by mouth at bedtime. 90 Tablet 4 Suspended Additional Information tiZANidine (ZANAFLEX) 2 mg tabletIndications: Concussion without loss of consciousness, subsequent encounter,Chronic post-traumatic headache, not intractable,Work related injury,Whiplash, subsequent encounter Take 1 Tablet (2 mg) by mouth at bedtime. 90 Tablet 4 Suspended Additional Information rizatriptan (MAXALT TRAFFIC ENUMERATOR) 5 mg disintegrating tabletIndications: Concussion without loss of consciousness, subsequent encounter,Chronic post-traumatic headache, not intractable,Work related injury Place 1 Tablet (5 mg) on the tongue 2 times daily if needed for Migraine. Give at minimum 2hrs apart. Max Dose: 30mg per 24hrs. 54 Tablet 4 Suspended Additional Information rx oxyCODONE 5 mg (ROXICODONE) tablet (ED DC MED)Indications:Le ft lower quadrant abdominal pain Take 1 Tablet (5 mg) by mouth every 6 hours if needed for Pain. 4 Tablet 4 02/08/20 24 Discontinued (*Med complete/Reg imen complete/Lev el of care change) adalimumab (Humira,CF, Pen) 40 mg/0.4 mL pnktIndications:An kylosing spondylitis, unspecified site of spine (HC) Inject 40 mg subcutaneous every 2 weeks. 2 Each 3 4 02/03/20 24 Discontinued (Reorder (E-cancel not sent)) clonazePAM (KLONOPIN) 0.5 mg tabletIndications: Chronic post-traumatic stress disorder (PTSD) Take 1 Tablet (0.5 mg) by mouth once daily if needed for Anxiety. 14 Tablet 4 Suspended Additional Information pregabalin (LYRICA) 25 mg capsuleIndications :Generalized anxiety disorder with panic attacks Take 1 Capsule (25 mg) by mouth three times daily. 42 Capsule 4 Suspended Additional Information adalimumab (Humira,CF, Pen) 40 mg/0.4 mL pnktIndications:An kylosing spondylitis, unspecified site of spine (HC) Inject 40 mg subcutaneous every 2 weeks. 2 Each 3 4 Suspended Additional Information Active Problems Problem Noted Date Diagnosed Date Intra-abdominal adhesions 02/14/2024 Chronic pelvic pain in female 02/14/2024 Endometriosis determined by laparoscopy 02/14/20 LGSIL of cervix of undetermined significance Overview: 01/2024 LSIL Plan: HPV based testing in 1 year Asthma, unspecified asthma s everity, unspecified whether [...] Overview: Added automatically from request for surgery [id number] Anorexia nervosa, restrictin g type, in partial [...] Encounters Date Type Department Care Team Description 02/14/2024 10:10 AM CDT [address]est[address] [place] [address] Su Thorne MD Klinkner, Jacqueline Marie, CRNA 02/14/2024 10:05 AM CDT - 02/14/2024 11:20 AM CDT Surgery [address] [place] [address] Fareed Eddy MD LAPAROSCOPIC DIAGNOSTIC 02/14/2024 8:47 AM CDT - Present Hospital Encounter [address] [place] [address] Fareed Eddy MD Status post laparoscopy (Primary Dx); Chronic pelvic pain in female; Endometriosis determined by laparoscopy 02/14/2024 Nurse Triage [facility] [address] [place] [address] Vane Black PA Post-op Pain/problem 02/14/2024 Travel 02/12/2024 Refill [facility] [address] [place] [address] Kendal Vallejo, VAN DRIVER HELPER Refill Request (Clonazepam, Pregabalin) 02/09/2024 3:00 PM CDT Procedure Only [facility] [address] [facility] [place] [address] Cheryl Santo L Ac Acupuncture 02/09/2024 Travel 02/08/2024 8:15 AM CDT Preop Visit [facility] [address] [place] [address] Vane Black PA Preoperative Exam (02/14/24/POSSIBLE LYSIS OF ADHESIONS, Possible fulguration of implants/Dr. Eddy/[facility] /) 02/08/2024 Telephone [facility] [address] [place] [address] Asya Owen MD 02/08/2024 Transcribe Orders [facility] [address] [place] [address] Asya Owen MD 02/08/2024 Telephone [facility] [address] [place] [address] Kendal Vallejo, ISSAC Error-please disregard 02/07/2024 Travel 02/03/2024 10:30 AM CDT Procedure Only [facility] [address] [facility] 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) 01/27/2024 Travel 01/25/2024 12:45 PM CDT Office Visit [facility] [address] [place] [address] Vane Black PA Physical (23 Year Old/Pap/Medication management /PCOS/Endo- uterus pain /Non fasting ); Immunization/Injection 01/25/2024 Travel 01/20/2024 Orders Only [facility] [address] [place] [address] Carson Cardona MD <No scans attached> 01/17/2024 10:30 AM CDT Office Visit [facility] [address] [place] [address] Infusion Therapy (Simponi 200 mg #1/3) 01/16/2024 Travel 01/14/2024 Telephone [facility] [address] [place] [address] Carson Cardona MD Infusion Therapy 01/03/2024 2:00 PM CDT Ancillary Procedure [facility] [address] [place] [address] 01/03/2024 Travel 01/01/2024 3:46 PM CDT - 01/01/2024 8:18 PM CDT Emergency [facility] [address] [place] [address] Mimi Merino PA Left lower quadrant abdominal pain (Primary Dx) Discharge Disposition: Home Self Care 01/01/2024 Travel 01/01/2024 Nurse Triage [facility] [address] [place] [address] Vane Black PA Abdominal Pain 12/31/2023 Telephone [facility] [address] [place] [address] Vane Black PA Questions (X-RAY RESULTS) 12/29/2023 2:00 PM CDT Ancillary Procedure [facility] [address] [place] [address] 12/29/2023 1:10 PM CDT Office Visit [facility] [address] [facility] [place] [address] Vane Black PA Chest Pain (contusion - two times both times seen [facility] ) 12/29/2023 Travel 12/28/2023 Telephone [facility] [address] [place] [address] Carson Cardona MD Infusion Therapy 12/27/2023 8:20 AM CDT Office Visit [facility] [address] [place] [address] Carson Cardona MD Consult (Consult - Spondyloarthropathy of SI Joint. /Referred By - JOSEMANUEL Dudley. ) 12/26/2023 Travel 12/09/2023 2:00 PM CDT [facility] [address] [place] [address] Ricardo Petersen, PhD, LP Neuropsychological Assessment 12/09/2023 Travel 11/25/2023 1:00 PM CDT Office Visit [facility] [address] [place] [address] Asya Owen MD Follow Up (Head Injury DOI: 10/30/22) 11/25/2023 Travel 11/23/2023 8:30 AM CDT [facility] [address] [place] [address] Ricardo Petersen, PhD, LP Neuropsychological Assessment 11/23/2023 Travel from Last 3 Months Immunizations Name Administration Dates Next Due COVID-19 Vaccine Spikevax (M oderna 50mcg/0.5mL) 12YO+ [id number] Formula PF 08/23/2023 COVID-19 vaccine (Moderna 100mcg/0.5mL) [id number] 08/02/2021,09/27/2020 COVID-19 vaccine (Pfizer-Bio NTech 30mcg/0.3mL) 12YO+ [...] Sex Assigned at Female 09/15/2023 10:11 AM GROUNDMAN/LINEMAN Gender Identity Female 09/15/2023 10:11 AM GROUNDMAN/LINEMAN Sexual Orientation Not on file Obstetrics History Para Term AB IAB SAB Ectopic Multiple Livin g Live Births 0 0 0 0 0 0 0 0 0 0 0 Last Filed Vital Signs Vital Sign Reading Time Taken Comments Blood Pressure 108/64 02/14/2024 12:04 PM CDT Pulse 70 02/14/2024 12:04 PM CDT Temperature 36.2 ??C (97.2 ??F) 02/14/2024 1 1:36 AM CDT Respiratory Rate 18 02/14/2024 12:0 4 PM CDT Oxygen Saturation 96% 02/14/2024 12: 04 PM CDT Inhaled Oxygen Concentration - - Weight 100.6 kg (221 lb 12.8 oz) 02/14/2024 8:57 AM CDT Height 175.3 cm (5' 9) 02/14/2024 8:57 AM CDT Body Mass Index 32.75 02/14/2024 8:57 AM CDT Plan of Treatment Upcoming Encounters Date Type Department Care Team (Late st Contact Info) Description 02/15/2024 2:00 PM CDT Telemedicine [facility] [address] [place] [address] Asya Owen MD [address] [place] [address] 02/22/2024 2:00 PM CDT Telemedicine [facility] [address] [facility] [address] [place] [phone] Yoni November Giorgi, VAN DRIVER HELPER [address] [facility] [address] [place] [address] 02/24/2024 1:30 PM CDT Procedure Only [facility] [address] [place] [address] Cheryl Santo, L Ac [address] [place] [address] 02/29/2024 1:30 PM CDT Procedure Only [facility] [address] [place] [address] Cheryl Santo, L Ac [address] [place] [address] 04/10/2024 12:40 PM CDT Office Visit [facility] [address] [facility] [address] [place] [address] Carson Cardona MD [address] [facility] [address] [place] [address] 04/18/2024 1:30 PM CDT Telemedicine [facility] [address] [facility] [address] [place] [phone] Yoni Kendal Giorgi, VAN DRIVER HELPER [address] [facility] [address] [place] [address] Health Maintenance Due Date Last Done Comments COVID-19 vaccine series (2022- season) 2023 08/23/2023, 06/26/2022, 08/02/2021, Additional history exists Influenza for age 9-49 04/16/2024 , 06/26/2022, 04/25/2019, Additional history exists Depression screening for age 12+ 11/02/2024 11/03/2023, 08/06/2023, 04/22/2023, Additional history exists Chlamydia for age 16-24 01/24/2025 01/25/20 24, 09/03/2022, 09/26/2019, Additional history exists Pap test for age 21-65 01/24/2025 , 05/30/2020 (Verified in Care Everywhere or Patient Record) BMI (ht and wt on same day) for age 18+ 02/07/2025 02/08/2024, 12/27/2023, 09/03/2022, Additional history exists Tetanus booster 01/24/2034 01/25/2024, 05/21/2010 Pneumococcal series for age 6-64 Aged Out 04/25/2001, 10/25/2000 No longer eligibl e based on patient's age to complete this topic HPV series for age 9-26 Completed 12/15/19, 07/06/2014, 04/20/2014 HIV for age 15-65 Completed 09/03/2022 Hepatitis C screening for age 18-79 Completed 12/27/2023 Tdap Completed 01/25/2024, 05/21/2010 Procedures The patient is currently admitted. The information in this section might not be complete until the patient is discharged. Procedure Name Priority Date/Time Associated Diagnosis Comments ENDOTRACHEAL TUBE Routine 02/14/2024 10: 22 AM CDT ENDOTRACHEAL TUBE Routine 02/14/2024 10: 22 AM CDT LAPAROSCOPIC LYSIS OF ADHESIONS Elective 02/14/2024 10:00 AM CDT Endometriosis LAPAROSCOPIC DIAGNOSTIC Elective 02/14/2024 10:00 AM CDT Endometriosis OR IMAGE CAPTURE Routine 02/14/2024 9:15 AM CDT URINE Preop 02/14/2024 9:09 AM CDT ACUPUNCTURE PLAN OF CARE Routine 02/10/2024 9:25 AM CDT Chronic post-traumatic headache, not intractable Work related injury Concussion without loss of consciousness, subsequent encounter Whiplash, subsequent encounter Chest wall pain NATIONAL SALES MANAGER THIN PREP PAP SCREEN IMAGED Routine 01/25/2024 1:25 PM CDT Screening for malignant neoplasm of cervix GC CHLAMYDIA TRACH PROBE Routine 01/25/2024 1:25 [...] 9:25 AM CDT Spondyloarthropathy of sacroiliac joint LC HIV-1/O/2, 4TH GENERATION Routine 09/03/2022 5:17 PM GROUNDMAN/LINEMAN Febrile illness Dysuria from Last 3 Months or Most Recently Relevant to Health Maintenance Results * HCHG TUBE PR1, HCHG STYLET PR1 (02/14/2024 10:22 AM CDT) Narrative Tracee Jesus CRNA - 02/14/2024 10:22 AM CDT Tracee Jesus CRNA ? 02/14/2024 10:22 AM Procedure: ETT Patient location during procedure: OR ETT Properties Mask Ventilation: easy Final Technique: direct laryngoscopy Type: straight Location: oral Cuffed: yes Tube Size: 7.0 mm Stylet: yes Laryngoscope Blade: Ya Blade Size: 2 Cormack-Lehane Grade View: 1 Insertion Attempts: 1 Placement Verification: auscultation, end tidal CO2 and symmetrical chest wall movement Assessment: pharynx clear, atraumatic and dentition unchanged Secured at: 22 Measured From: lips Difficulty: 0 (not difficult) Su Thorne MD ANESTHESIA PX NOTE ORDERABLES * Urine (02/14/2024 9:09 AM CDT) Only the most recent of2 resultswithin the time period is included. Pathologist [facility] ,URIN E Negative Negative 02/14/2024 9:19 AM CDT [facility] Urine URINE SPECIMEN / Unknown Non-Blood / Unknown 02/14/2024 9:09 AM CDT 02/14/2024 9:09 AM CDT Fareed Eddy MD URINE [facility] [address] [place] [address] * (ABNORMAL) NATIONAL SALES MANAGER THIN PREP PAP SCREEN IMAGED [[id number]] (01/25/2024 1:25 PM CDT) [facility] Case Report Gynecologic Cytology Report ? Case: [id number] ? Authorizing Provider: ??Vane Black PA ?? Collected: ? 01/25/2024 1325 ? Ordering Location: ? [facility] ?? Received: ?01/25/2024 1409 ? Clinic ? First Screen: ?Jenelle Perry ? Pathologist: ? Deandra Herrera MD ? Specimen: ?NATIONAL SALES MANAGER ThinPrep Vial Screening, Cervical ? 02/07/2024 11:04 AM CDT [facility] ENTRAL LABORATORY INTERPRETATION/ RESULT LOW GRADE SQUAMOUS INTRAEPITHELIAL LESION (LSIL)(A) (none) 02/07/2024 11:04 AM CDT [facility] IMEN ADEQUACY Satisfactory for evaluation Endocervical component present 02/07/2024 11:04 AM CDT [facility] [employer] LABORATORY-C ENTRAL LABORATORY Date of LMP Unknown 02/07/2024 11:04 AM CDT [facility] Last Pap Date 05/30/2020 02/07/2024 11:04 AM CDT [facility] Last Pap Result NIL 11:04 AM CDT [facility] Abnormal Pap or [place] Bx in last 5 years No 02/07/2024 11:04 AM CDT [facility] Menstrual Status Hormonally Suppressed 02/07/2024 11:04 AM CDT [facility] [place] Bx Done Today No 02/07/2024 11:04 AM CDT [facility] Additional Information None given 02/07/2024 11:04 AM CDT [facility] Comment: Cytology is screened at [facility] Central Laboratory - [address] [address] and [facility] Laboratory - [address], [place] [address] and [facility] Laboratory - [address] [place] [address] Interpreted at [facility] Central Laboratory - [address], [place] [address] Automated Review Successful 02/07/2024 11:04 AM CDT [facility] ENTRAL LABORATORY Comment:Specimen processed s uccessfully by automated certified medical coder device, ThinPrep Imaging System, [employer] Note The pap test is a screening technique, not a diagnostic procedure. It is used primarily to screen for squamous cancers and precursor lesions. Published studies have shown that it is subject to both false negative and false positive results. The pap test should not be used as the sole means to diagnose or exclude pre-malignant and malignant lesions. 02/07/2024 11:04 AM CDT [facility] ENTRAL LABORATORY Other (Cervical) Non-Blood / Unknown 01/25/2024 1:25 PM CDT 01/25/2024 2:09 PM CDT Vane ABERNATHY PATHOLOGY/CYTOLOG Y Performing Organization Address City/[facility]/ZIP Co de Phone Number [facility] [address] [place] [address], [place] * GC CHLAMYDIA DNA PCR [[id number]] (01/25/2024 1:25 PM CDT) CHLAMYDIA PROBE Negative 11:19 AM CDT [facility] N GONORRHOEAE PROBE Negative 01/26/2024 11:19 AM CDT [facility] Other VAGINAL SWAB / Unknown Non-Blood / Unknown 01/25/2024 1:25 PM CDT 01/25/2024 2:09 PM CDT Vane ABERNATHY MICROBIOLOGY [facility] [address] [place] [address], [place] * CT CHEST WO (01/03/2024 2:43 PM [...] @ 01/01/2024 7:30:22 PM (Electronically Signed) Mimi ABERNATHY CT * US PELVIS COMPLETE TA [...] @ 01/01/2024 6:12:09 PM (Electronically Signed) Mimi COLLAZO * (ABNORMAL) CBC WITH AUTO DIFFERENTIAL (01/01/2024 3:56 PM CDT) WHITE BLOOD COUNT 11.0 4.5 - 11.0 thou/cu mm 01/01/2024 4:03 PM CDT [facility] RED BLOOD COUNT 4.87 4.00 - 5.20 mil/cu mm 01/01/2024 4:03 PM CDT [facility] HEMOGLOBIN 15.1 12.0 - 16.0 g/dL 01/01/2024 4:03 PM [facility] HEMATOCRIT 45.5 33.0 - 51.0 % 01/01/2024 4:03 PM [facility] MCV 93 80 - 100 fL 01/01/2024 4:03 PM [facility] MCH 31.0 26.0 - 34.0 pg 01/01/2024 4:03 PM [facility] MCHC 33.2 32.0 - 36.0 g/dL 01/01/2024 4:03 PM [facility] RDW 13.4 11.5 - 15.5 % 01/01/2024 4:03 PM [facility] PLATELET COUNT 318 140 - 440 thou/cu mm 01/01/2024 4:03 PM [facility] MPV 9.0 6.5 - 11.0 fL 01/01/2024 4:03 PM [facility] % NEUT 54.3 % 01/01/2024 4:03 PM [facility] % LYMPH 34.0 % 01/01/2024 4:03 PM [facility] % MONO 8.0 % 01/01/2024 4:03 PM [facility] % EOS 3.2 % 01/01/2024 4:03 PM [facility] % BASO 0.5 % 01/01/2024 4:03 PM [facility] ABSOLUTE NEUTROPHILS 6.0 1.7 - 7.0 thou/cu mm 01/01/2024 4:03 PM [facility] ABSOLUTE LYMPHOCYTES 3.8(H) 0.9 - 2.9 thou/cu mm 01/01/2024 4:03 PM [facility] ABSOLUTE MONOCYTES 0.9(H) <0.9 thou/cu mm 01/01/2024 4:03 PM [facility] ABSOLUTE EOSINOPHILS 0.4 <0.5 thou/cu mm 01/01/2024 4:03 PM [facility] ABSOLUTE BASOPHILS 0.1 <0.3 thou/cu mm 01/01/2024 4:03 PM [facility] Blood BLOOD SPECIMEN / Unknown Venipuncture / Unknown 01/01/2024 3:56 PM CDT 01/01/2024 3:59 PM CDT Mimi ABERNATHY HEMATOLOGY [facility] [address] [place] [address] * UA W/ SEDIMENT EXAM REFLEXED PER CRITERIA (01/01/2024 3:56 PM CDT) COLOR Yellow Yellow Color 01/01/2024 4:03 PM [facility] CLARITY Clear Clear Clarity 01/01/2024 4:03 PM [facility] SPECIFIC GRAVITY,URINE 1.020 1.010, 1.015, 1.020, 1.025 01/01/2024 4:03 PM [facility] PH,URINE 5.5 6.0, 7.0, 8.0, 5.5, 6.5, 7.5, 8.5 01/01/2024 4:03 PM [facility] UROBILINOGEN, QUALITATIVE Normal Normal EU/dl 01/01/2024 4:03 PM [facility] PROTEIN, URINE Negative Negative mg/dL 01/01/2024 4:03 PM [facility] GLUCOSE, URINE Negative Negative mg/dL 01/01/2024 4:03 PM [facility] KETONES,URINE Negative Negative mg/dL 01/01/2024 4:03 PM [facility] BILIRUBIN,URI NE Negative Negative 01/01/2024 4:03 PM [facility] OCCULT BLOOD,URINE Negative Negative 01/01/2024 4:03 PM [facility] NITRITE Negative Negative 01/01/2024 4:03 PM [facility] LEUKOCYTE ESTERASE Negative Negative 01/01/2024 4:03 PM [facility] Urine URINE SPECIMEN / Unknown Non-Blood / Unknown 01/01/2024 3:56 PM CDT 01/01/2024 3:59 PM CDT Mimi ABERNATHY URINE [facility] [address] [facility] [place] [address] * BASIC METABOLIC PANEL (01/01/2024 3:56 PM CDT) SODIUM 139 136 - 145 mmol/L 01/01/2024 4:18 PM T [facility] LABORATORY POTASSIUM 4.0 3.5 - 5.1 mmol/L 01/01/2024 4:18 PM [facility] CHLORIDE 106 98 - 107 mmol/L 01/01/2024 4:18 PM [facility] CO2,TOTAL 25 22 - 29 mmol/L 01/01/2024 4:18 PM [facility] ANION GAP 8 5 - 18 01/01/2024 4:18 PM [facility] GLUCOSE 88 70 - 99 mg/dL 01/01/2024 4:18 PM [facility] CALCIUM 9.4 8.6 - 10.0 mg/dL 01/01/2024 4:18 PM [facility] BUN 9 6 - 20 mg/dL 01/01/2024 4:18 PM [facility] CREATININE 0.66 0.50 - 0.90 mg/dL 01/01/2024 4:18 PM [facility] BUN/CREAT RATIO 14 10 - 20 4:18 PM [facility] eGFR >90 >90 mL/min/1.7 3m2 01/01/2024 4:18 PM [facility] Comment:As of 2021, eG FR is calculated by the CKD-EPI creatinine equation without race adjustment. ??eGFR can be influenced by muscle mass, exercise, and diet. ??The reported eGFR is an estimation only and is only applicable if the renal function is stable. Blood BLOOD SPECIMEN / Unknown Venipuncture / Unknown 01/01/2024 3:56 PM CDT 01/01/2024 3:59 PM CDT Mimi ABERNATHY CHEMISTRY [facility] [address] [place] [address] * XR CHEST 2 VIEWS PA AND [...] For Patients: As a result of the s Act, medical imagingexams and procedure reports are [...] MITOGEN 10.00 IU/mL 12/28/2023 9:04 AM CDT [facility] Blood BLOOD SPECIMEN / Unknown Venipuncture / Unknown 12/27/2023 9:25 AM CDT 12/27/2023 9:25 AM CDT Carson Cardona MD CHEMISTRY Performing Organization Address City/[facility] Co de Phone Number [facility] [address] [place] [address], [place] * QFT TB2 PERFORMABLE (12/27/2023 9:25 AM CDT) Pathologist [facility] TB2 0.08 IU/mL 12/28/2023 9:04 AM CDT [facility] Blood BLOOD SPECIMEN / Unknown Venipuncture / Unknown 12/27/2023 9:25 AM CDT 12/27/2023 9:25 AM CDT Carson Cardona MD CHEMISTRY Performing Organization Address [facility] Co de Phone Number [facility] [address] [place] [address], [place] * QFT TB1 PERFORMABLE (12/27/2023 9:25 AM CDT) TB1 0.05 IU/mL 12/28/2023 9:05 AM CDT [facility] Blood BLOOD SPECIMEN / Unknown Venipuncture / Unknown 12/27/2023 9:25 AM CDT 12/27/2023 9:25 AM CDT Carson Cardona MD CHEMISTRY Performing Organization Address [facility] Co de Phone Number [facility] [address] [place] [address], [place] * QUANTIFERON TB GOLD PLUS (12/27/2023 9:25 AM CDT) Pathologist [facility] QFTP NIL 0.03 12/28/2023 9:16 AM CDT [facility] TB1 0.05 IU/mL 12/28/2023 9:16 AM CDT [facility] TB2 0.08 IU/mL 12/28/2023 9:16 AM CDT [facility] MITOGEN 10.00 IU/mL 12/28/2023 9:16 AM CDT [facility] QFTP TB AG1 - NIL 0.02 024 9:16 AM CDT [facility] TB1-NIL % OF NIL 67 % 12/28/19 9:16 AM CDT [facility] QFTP TB AG2 - NIL 0.05 024 9:16 AM CDT [facility] TB2-NIL % OF NIL >100 % 12/28/19 9:16 AM CDT [facility] QFTP MITOGEN - NIL 9.97 2023 9:16 AM CDT [facility] QFTP QUANTIFERON INTERPRETATION Negative Negative 12/28/2023 9:16 AM CDT [facility] Blood BLOOD SPECIMEN / Unknown Venipuncture / Unknown 12/27/2023 9:25 AM CDT 12/27/2023 9:25 AM CDT Narrative [facility] - 12/28/2023 9:16 AM CDT M. [...] old. - women Carson Cardona MD CHEMISTRY [facility] [address] [place] [address], [place] * HBSAG (HBS) (12/27/2023 9:25 AM CDT) Pathologist [facility] HBSAG Nonreactive Nonreactive 12/27/2023 5:24 PM CDT [facility] Blood BLOOD SPECIMEN / Unknown Venipuncture / Unknown 12/27/2023 9:25 AM CDT 12/27/2023 9:25 AM CDT Carson Cardona MD SEND OUTS Performing Organization Address City/[facility] Co de Phone Number [facility] [address] [place] [address], [place] * ANTI HCV (12/27/2023 9:25 AM CDT) Pathologist [facility] HEPATITIS C ANTIBODY Non-Reacti ve Non-React gab 12/27/2023 5:26 PM CDT [facility] Comment:Please note, per www .CDC.gov: If [...] Cardona MD SEND OUTS Performing Organization Address City/[facility] Co de Phone Number [facility] [address] [place], [place] [id number], [place] * ANTI HBS QUANT AHS (12/27/2023 9:25 AM CDT) Pathologist [facility] ANTI HBS QUANT 9.10 mIU/mL 12/27/2023 7:02 PM CDT [facility] Blood BLOOD SPECIMEN / Unknown Venipuncture / Unknown 12/27/2023 9:25 AM CDT 12/27/2023 9:25 AM CDT Narrative [facility] - 12/27/2023 7:02 PM CDT <8.5 Considered [...] to retesting. Carson Cardona MD SEND OUTS [facility] [address] [place] [address], * HIV-1/O/2, 4TH GENERATION (09/03/2022 5:17 PM GROUNDMAN/LINEMAN) Pathologist [facility] HIV Scr 4th Gen Non Reactive Non Reactive 09/09/2022 10:06 PM GROUNDMAN/LINEMAN [facility] Comment: HIV Negative HIV-1/HIV-2 antibodies and HIV-1 p24 antigen were NOT detected. There is no laboratory evidence of HIV infection. Blood BLOOD SPECIMEN / Unknown Venipuncture / Unknown 09/03/2022 5:17 PM GROUNDMAN/LINEMAN 09/03/2022 5:23 PM GROUNDMAN/LINEMAN Narrative [facility] - 09/09/2022 10:06 PM GROUNDMAN/LINEMAN Performed at: ??[address] - [address] ??[id number] Airplane And Engine Inspector: Anderson Johnson MD, Phone: ??[phone] Carmela Arriola MD LABORATORY [facility] ([facility]) [address] [place] [address], from Last 3 Months or Most Recently Relevant to Health Maintenance Advance Directives * Full Code (Latest Code Status on File) Date Activated Date Inactivated Comments 02/14/2024 8:57 AM Question Answer Comments Code Status Discussion: Reviewed Preferences * Full Code Date Activated Date Inactivated Comments 04/14/2023 12:27 PM 04/14/2023 5:32 PM Question Answer Comments Code Status Discussion: Discussed Care Teams Business Analytics Analyst Relationship Specialty Start Date End Date Vane Black PA [address] [place] [address] PCP - General Physician Livestock Yard Supervisor 02/15/23 Yoni Kendal Giorgi, ISSAC [address] [place] [address] Mental Health Provider Nurse Practitioner - Mental Health 03/18/22
--- OUTSIDE RECORDS SUMMARY | 2024-02-14 16:45 | XMS_ITS | Encounter Summary ---
Author Organization [place] Address [address] [facility] [place] [address] Care Team Providers Care Jewelry Dipper Name Role Phone Lucy Valverde MD Primary Care Provider [phone] Marilou Quigley MD Primary Care Provider [phone] Lola Laurent PA-C Unavailable [phone] Lucy Valverde MD Unavailable [phone] Sukhwinder Gerard MD Unavailable [phone] Sukhwinder Gerard MD Unavailable [phone] Vane Fish APRN CATTLE INSPECTOR Unavailable Un available Lucy Valverde MD Unavailable [phone] Lucy Valverde MD Unavailable [phone] Vane Fish APRN CATTLE INSPECTOR Unavailable Un available Vane Black Primary Care Provider [phone] Encounter Details Date Type Department Care Team (Late st Contact Info) Description 10/04/2007 Abstract [facility] [address] [place] [address] Lucy Valverde MD [address] [place] [address] [place] [address] Social History Tobacco Use Types [...] documented as of this encounter Care Teams Jewelry Dipper Relationship Specialty Start Date End Date Lucy Valverde MD [address] [facility] [place] [address] PCP - General 08/23/07 04/28/17 Marilou Quigley MD [facility] [address] [place] [address] PCP - General 04/29/17 05/11/23 Vane Black PA [facility] [place] [address] PCP - General Family Practice 05/12/23 Lola Laurent PA-C [address] [facility] [place] [address] Assigned PCP 09/23/19 11/18/19 Lucy Valverde MD [address] [facility] [place] [address] Assigned PCP 11/19/19 11/16/20 Sukhwinder Gerard MD [address] [facility] [address] [place], [place] [address] Gastroenterology 03/08/20 Sukhwinder Gerard MD [place] [facility] [address] [address] [place], [place] [address] Assigned Gastroenterology Provider 06/07/20 09/06/21 Vane Fish APRN CATTLE INSPECTOR Assigned PCP 11/17/20 02/27/21 Lucy Valverde MD [address] [facility] [address] [place] [address] Assigned PCP 02/28/21 07/31/22 Lucy Valverde MD [address] [facility] [address] [place] [address] Assigned PCP 10/10/22 11/13/22 Vane Fish APRN CATTLE INSPECTOR Assigned PCP 11/14/22 02/19/23 documented as of this encounter
--- OUTSIDE RECORDS SUMMARY | 2024-02-14 16:45 | XMS_ITS | Encounter Summary ---
Author Organization [place] Address [address] [facility] [place] [address] Care Team Providers Care Structural Test Engineer Name Role Phone Marilou Quigley MD Primary Care Provider [phone] Lola Laurent-C Unavailable [phone] Lucy Valverde MD Unavailable [phone] Sukhwinder Gerard MD Unavailable [phone] Sukhwinder Gerard MD Unavailable [phone] Vane Fish APRN LIFE ENRICHMENT SPECIALIST Unavailable Un available Lucy Valverde MD Unavailable [phone] Lucy Valverde MD Unavailable [phone] Vane Fish APRN LIFE ENRICHMENT SPECIALIST Unavailable Un available Vane Black Primary Care Provider [phone] Reason for Visit * Reason Onset Date Comments Mental Health Problem 04/29/2017 Encounter Details Date Type Department Care Team ([facility] st Contact Info) Description 04/29/2017 Telephone [facility] Intake [address] [place] [id number] Generic, Behavioral Intake, Mental Health Problem Social [...] Saxena - 04/29/2017 5:53 PM CDT S: [facility] ED called to place a 17 yr old female for inpatient mental health treatment. B: Pt was BIB parents to the [facility] ED due to suicidal ideation with a [...] documented as of this encounter Care Teams Structural Test Engineer Relationship Specialty Start Date End Date Marilou Quigley MD [facility] [address] [place] [address] PCP - General 04/29/17 05/11/23 Vane Black PA [address] [place] [address] PCP - General Family Practice 05/12/23 Lola Laurent PA-C [address] [place] [address] Assigned PCP 09/23/19 11/18/19 Lucy Valverde MD [address] [place] [address] Assigned PCP 11/19/19 11/16/20 Sukhwinder Gerard MD [address] [place] [address] Gastroenterology 03/08/20 Sukhwinder Gerard MD [facility] [address] [address] [place] [address] Assigned Gastroenterology Provider 06/07/20 09/06/21 Vane Fish APRN LIFE ENRICHMENT SPECIALIST Assigned PCP 11/17/20 02/27/21 Lucy Valverde MD [address] [place] [address] Assigned PCP 02/28/21 07/31/22 Lucy Valverde MD [address] [place] [address] Assigned PCP 10/10/22 11/13/22 Vane Fish APRN LIFE ENRICHMENT SPECIALIST Assigned PCP 11/14/22 02/19/23 documented as of this encounter
--- NOTE | 2024-02-14 17:39 | ED.NURSE ---
Wound care completed- guaze and bandaid applied over incision near umbilicus.
== END 2024-02-14 17:40 | disposition home or self-care (01) ==
PROVIDERS: Emergency Provider Family Medicine; PCP Student in an Organized Health Care Education/Training Program
DX: L76.22 Postprocedural hemorrhage of skin and subcutaneous tissue following other procedure (principal)
CPT/HCPCS: 99283; 99284

== ENCOUNTER 2024-04-15 00:03 | Emergency (ER) | payer MEDICAID, SELFPAY ==
[2024-04-15 00:11] VITALS: BP 129/85; PULSE 71; RESP 16; TEMP 36.7; O2SAT 97; BMI 32.7
--- NOTE | 2024-04-15 00:53 | ED.GENADULT ---
HPI - General Adult General Chief complaint: Head Injury/Pain Stated complaint: Concussion Time Seen by Provider: 04/15/24 00:35 Source: patient Mode of arrival: ambulatory Limitations: no limitations History of Present Illness HPI narrative: Patient presents the emergency department almost immediately after a mild head injury in her home. She is moving out of her apartment in the morning. She had taken apart her bed frame and had the board stacked against the wall, leaning. One of the boards fell forward from the wall, striking her when she was in a crouching position. The fall was only a few feet. It struck her in the left baptism area. She reports mild headache, nausea and photophobia. No vomiting. Her sister was present in the apartment at the time. Can confirm that there was no loss of consciousness. No seizure, no tongue biting or urination. No focal neurological changes since the injury. Does report some double vision but no other vision changes. Reports that she has had multiple prior concussions in the past including 1 from last year that took I year to recover per her report. She reports no recent medication changes. Does not take any anticoagulants. Has not tried taking any Tylenol or ibuprofen for the headache. Past medical history notable for bipolar disorder, anxiety, anorexia and prior concussion. Medications are reported as accurate as listed per patient. Allergy to trazodone. Social history reviewed, prior ED notes reviewed. Patient has had multiple prior ED visits including 7 in the last year. ROS is notable for the generalized, neurological symptoms described above, otherwise denies times 12 Related Data Home Medications ?Medication ?Instructions ?Recorded ?Confirmed albuterol sulfate .ROUTE 05/26/22 clonazepam 0.5 mg tablet mg 05/26/22 levothyroxine 50 mcg tablet mcg 05/26/22 lithium carbonate 300 mg capsule mg 05/26/22 sumatriptan succinate 100 mg tablet mg PO 05/26/22 metformin 750 mg tablet,extended 750 mg PO QAM 04/15/24 04/15/24 release 24 hr pantoprazole 40 mg tablet,delayed 40 mg PO DAILY 04/15/24 04/15/24 release pregabalin 25 mg capsule 25 mg PO 3XD 04/15/24 04/15/24 progesterone micronized 200 mg 200 mg PO QPM 04/15/24 04/15/24 capsule rimegepant 75 mg disintegrating 75 mg PO DAILY PRN headache 04/15/24 04/15/24 tablet (Nurtec ODT) suvorexant 10 mg tablet (Belsomra) 10 mg PO QPM 04/15/24 04/15/24 tizanidine 2 mg tablet 2 mg PO QPM 04/15/24 04/15/24 Previous Rx's ?Medication ?Instructions ?Recorded fluconazole 150 mg tablet 150 mg PO DAILY #1 tab 12/18/22 Allergies Allergy/AdvReac Type Severity Reaction Status Date / Time trazodone Allergy Intermediate Verified 04/15/24 00:16 [facility] Medical History Allergic reaction to allergy skin test ?T78.49XA - Other allergy, initial encounter (ICD-10) Surgical History History of tonsillectomy (2009) ?Z90.89 - Acquired absence of other organs (ICD-10) History of spinal fusion for scoliosis (2011) ?Z98.1 - Arthrodesis status (ICD-10) ?Z87.39 - Personal history of other diseases of the musculoskeletal system and connective tissue (ICD-10) Family History Mother Thyroid disease Father Asthma Depression Sister Asthma Autism spectrum disorder Maternal Grandfather Depression High cholesterol High blood pressure Maternal Grandmother Depression High cholesterol High blood pressure Other Coronary artery disease Social History Smoking Status: Current every day smoker Do you use any of these nicotine containing products: None and Vaping Products Second hand tobacco smoke exposure: No How often do you have a drink containing alcohol: 2-4 times a month How often do you have six or more drinks on one occasion: Less than monthly AUDIT-C Alcohol total score: 3 Non-prescribed substance use: marijuana (any form) service: No Exam Const: Vital Signs, click to edit/add: Vital Signs - 24 hr 04/15/24 00:11 Temperature 98.1 F Pulse Rate [Pulse Oximeter] 71 Respiratory Rate 16 Blood Pressure [Ri ght Upper Arm] 129/85 Pulse Oximetry 97 Oxygen Delivery Me thod Room Air Documenting provider has reviewed patient's vital signs: yes Common normals: no apparent distress and alert General appearance: cooperative, comfortable and well kempt HENMT: Common normals: normocephalic, head/scalp atraumatic, TM's normal bilaterally and external nose normal Head and scalp: normocephalic and atraumatic Face and sinus: normal facial exam and face symmetric Nose: external nose normal Tympanic membrane: TM's normal bilaterally Mouth: oral and palatal mucosa normal, lip normal and tongue normal Throat: posterior oropharynx normal Other: Jaw opens and closes normally. No deformity to skull. No hematoma or broken skin. Eye: Common normals: PERRL, EOMs intact bilaterally and conjunctivae normal General eye: normal appearance of both eyes Conjunctiva: conjunctiva(e) normal Pupil: PERRL Neck & C-Spine: Common normals: full ROM, no lymphadenopathy and no meningeal signs Cervical spine: cervical ROM normal; no cervical spine tenderness Resp: Common normals: normal respiratory effort, no use of accessory muscles and clear to auscultation bilaterally Effort & inspection: able to speak in complete sentences Auscultation: clear to auscultation bilaterally Cardio: Common normals: regular rate, regular rhythm, S1 normal heart sound, S2 normal heart sound and no murmurs Rate: regular rate Rhythm: regular rhythm Heart sounds: S1 normal and S2 normal Extremity: Common normals: normal to inspection and normal capillary refill Neuro: Common normals: CN's II-XII intact bilaterally, moves all extremities and no focal motor deficits Sensorium/orientation: alert Meningeal signs: no meningeal signs Coordination/balance: tandem gait normal and Romberg test negative Speech: speech normal Gait (neuro): normal gait Motor exam: strength 5/5 throughout, no tremor noted and no movement abnormalities noted Coordination: tandem gait normal Psych: Appearance: well kempt Attitude: engaged Activity/motor behavior: appropriate eye contact Insight: insight good Judgement: judgment good Skin: Common normals: no rashes or lesions noted General skin exam: no rashes or lesions noted Course Course ED Course: 23-year-old female with mild head injury. No evidence of skull fracture, intracranial hemorrhage, major brain injury at this time. No neurological changes. Counseled patient on findings. Mechanism does not warrant advanced imaging with reassuring exam. Counseled that she will likely experience symptoms of concussion. Rest for the next 48 hours, lots of fluids. Okay to use Tylenol and ibuprofen for headache. Discussed alarm symptoms that would warrant repeat ED visit. She check in with the primary care provider if she is still symptomatic in 3 days. Work note given for the next 2 days, then encouraged to return to full duty. All questions answered. Written instructions provided. Vital Signs Vital signs: Initial Vital Signs Temperature 98.1 F 04/15/24 00:11 Temperature Source Temporal Artery Scan 04/15/24 00:11 Pulse Rate 71 04/15/24 00:11 Pulse Rhythm Regular 04/15/24 00:11 Respiratory Rate 16 04/15/24 00:11 Blood Pressure 129/85 04/15/24 00:11 Blood Pressure Mean 99 04/15/24 00:11 Blood Pressure Position Sitting 04/15/24 00:11 Pulse Oximetry 97 04/15/24 00:11 Oxygen Delivery Method Room Air 04/15/24 00:11 Vital Signs Temperature 98.1 F 04/15/24 00:11 Pulse Rate 71 04/15/24 00:11 Respiratory Rate 16 04/15/24 00:11 Blood Pressure 129/85 04/15/24 00:11 Pulse Oximetry 97 04/15/24 00:11 Oxygen Delivery Method Room Air 04/15/24 00:11 Temperature 98.1 F 04/15/24 00:11 Pulse Rate 71 04/15/24 00:11 Respiratory Rate 16 04/15/24 00:11 Blood Pressure 129/85 04/15/24 00:11 Pulse Oximetry 97 04/15/24 00:11 Oxygen Delivery Method Room Air 04/15/24 00:11 Discharge Plan Discharge Clinical Impression: Closed head injury, Concussion without loss of consciousness Patient Disposition: Home w/ Parent or Adult Instructions: Concussion (ED) Additional Instructions: As we discussed, there are no signs of severe head injury tonight. I do suspect you will have mild concussion. Because you have had prior concussion, there is a chance that you may have more intense or prolonged symptoms than the average person. This cannot be predicted yet at this time. This type of mechanism is not usually associated with severe concussion. It is important that you drink plenty of water and rest as much as possible for the next 48 hours. You will be cleared to return to full duty after 48 hours. If you are still symptomatic, you should check in with the primary care provider to discuss management plan. It is okay to use Tylenol 1000 mg every 6 hours and/or ibuprofen 600 mg every 6 hours as needed for headache. You should come to emergency department if you have persistent vomiting, seizures, loss of consciousness or focal neurologic changes that would mimic a stroke. Activity Level: No strenuous activity Activity Detail: For 48 hours Discharge Diet: Regular Prescriptions: No Action tizanidine 2 mg tablet 2 mg PO QPM pantoprazole 40 mg tablet,delayed release (DR/EC) 40 mg PO DAILY progesterone micronized 200 mg capsule 200 mg PO QPM metformin 750 mg tablet extended release 24 hr 750 mg PO QAM pregabalin 25 mg capsule 25 mg PO 3XD Belsomra 10 mg tablet 10 mg PO QPM Nurtec ODT 75 mg tablet,disintegrating 75 mg PO DAILY PRN (Reason: headache) albuterol sulfate .ROUTE sumatriptan succinate 100 mg tablet PO clonazepam 0.5 mg tablet lithium carbonate 300 mg capsule Patient Comments: TAKE 1 CAPSULE BY MOUTH AT BEDTIME FOR 3 DAYS. THEN INCREASE TO 2 CAPSULES BY MOUTH AT BEDTIME levothyroxine 50 mcg tablet fluconazole 150 mg tablet 150 mg PO DAILY Qty: 1 1RF Follow Up/Referrals: Vane Black PA-C [Primary Care Provider] - Stand Alone Forms: [employer] Info Instructions
--- OUTSIDE RECORDS SUMMARY | 2024-04-15 01:02 | XMS_ITS ---
Author Organization [facility] Address [address] [place] [address] Care Team Providers Care Rip Saw Operator Name Role Phone Cooperative, Mental Health Unavailable REASON FOR VISIT EPS Crisis Follow-up 2 Encounters Encounter Location Date Provider Diagnosis Crisis - [facility] [address] [place] [address] 03/20/2024 Mental Health Cooperative Plan Of Treatment No Information Progress Notes * Stella ANGULOhDOB:[birth year] (23 yo F)Acc No.[id number]:03/20/2024 Patient:?Lary ANGULO :2000???Age:23 Y???Sex:Female Phone: Address:[address] [place], [address] Subjective: * Chief Complaints: * ???EPS Crisis Follow-up 2 * Medical History:? * Surgical History:? * Hospitalization/Major Diagno stic Procedure:? * Medications:? Objective: * Vitals:? * Physical Examination:? Assessment: Plan: * Treatment: * Procedure Codes:? * true * Date:? Generated for Partha arias/Datyon/eTransmitting on:?04/15/2024 01:00 AM CDT
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
--- OUTSIDE RECORDS SUMMARY | 2024-04-15 01:02 | XMS_ITS | Clinical Summary ---
Author Organization [facility] Address [address] [address] Care Team Providers Care Shopper'S Aide Name Role Phone Sukhwinder Gerard MD Unavailable [phone] Vane Black Primary Care Provider [phone] Allergies Active Allergy Reactions Criticality Noted Date Comments [place] Oil 04/27/2018 Other reaction(s): GI Upset [place] Oil 04/27/2018 Other reaction(s): GI Upset Crab [...] on patient's age to complete this topic MENINGITIS IMMUNIZATION Aged Out 05/21/2010 No l [...] Descrip Vagina 01/08/20 20 4:12 PM CDT [facility] N Gonorrhea PCR Negative NEG^Negat gab 01/09/2020 1:59 PM CDT [facility] Comment: Negative for N. gonorrhoeae rRNA by manager outreach mediated amplification. A negative result by manager outreach mediated amplification does not preclude the presence of N. gonorrhoeae infection because results are dependent on proper and adequate collection, absence of inhibitors, and sufficient rRNA to be detected. Specimen from vagina (specimen) 01/08/2020 4:10 PM CDT 01/08/2020 4:11 PM CDT Keyana Ortiz PA-C LAB - MICRO GENER AL ORDERABLES [facility] [address] [place] [address], [facility] [address] [place] [address] from Last 3 Months or Most Recently Relevant to Health Maintenance Advance Directives For more information, please contact: [phone] * Full Code (Latest Code Status on File) Date Activated Date Inactivated Comments 07/23/2017 10:23 PM 07/26/2017 5:52 PM * Full Code Date Activated Date Inactivated Comments 04/29/2017 10:56 PM 05/06/2017 4:51 PM Care Teams Shopper'S Aide Relationship Specialty Start Date End Date Vane Black PA [address] [place] [address] PCP - General Family Practice 05/12/23 Sukhwinder Gerard MD [address] [facility] [address] [place] [address] Gastroenterology 03/08/20
--- OUTSIDE RECORDS SUMMARY | 2024-04-15 01:02 | XMS_ITS | Clinical Summary ---
Author Organization [employer] [facility] [employer] [facility] Address [place], [place] [address] Care Team Providers Care Cyanide Furnace Operator Name Role Phone Sofia Vane ABERNATHY Primary Care Provider [phone] Carson Cardona MD Unavailable [phone] Allergies Active Allergy Reactions Criticality Noted Date Comments Dahlen GI Upset 08/25/2018 Patient reports immediate stomach pain. Dahlen Oil GI Upset 04/27/2018 Groton GI Upset 04/27/2018 Patient reports it feels like a rock when I eat it, for 48 hours and I cannot digest it. Crab GI Upset 04/27/2018 Lactose GI Upset 08/25/2018 Patient reports it is severe. Penelope Oil Other - Describe In Comment Field [...] needed for Nausea/Vomiting. 15 Tablet 4 Active adalimumab (Humira,CF, Pen) 40 mg/0.4 mL pnktIndications:Ank ylosing spondylitis, unspecified site of spine (HC) Inject 40 mg subcutaneous every 2 weeks. 2 Each 3 4 Active rimegepant (NURTEC) 75 mg orally disintegrating tabletIndications:C oncussion without loss of consciousness, subsequent encounter,Chronic post-traumatic headache, not intractable,Work related injury,Migraine with aura and without status migrainosus, not intractable Place 75 mg on the tongue once every other day. 45 Tablet 4 Active rizatriptan (MAXALT SHEETING PULLER) 5 mg disintegrating tabletIndications:C oncussion without loss [...] if needed for Anxiety. 14 Tablet 4 4 Active pregabalin (LYRICA) 25 mg capsuleIndications: Generalized anxiety disorder with panic attacks Take 1 Capsule (25 mg) by mouth three times daily. 42 Capsule 4 4 Active lithium carbonate (LITHONATE) 300 mg capsuleIndications: Bipolar 1 disorder, mixed, moderate (HC) Take 1 Capsule (300 mg) by mouth at bedtime. Take in addition to a 600 mg capsule. 14 Capsule 4 4 Active lithium carbonate 600 mg capsuleIndications: Bipolar 1 disorder, mixed, moderate (HC) Take one capsule by mouth at bedtime. 14 Capsule 4 4 Active norethindrone-ethin yl estradiol (Loestrin ,) 1-20 mg-mcg tabletIndications:E ndometriosis determined by laparoscopy Take 1 tablet my mouth daily, skip placebo row, start new pack. 112 Tablet 3 4 Active cyclobenzaprine (FLEXERIL) 10 mg tabletIndications:S train of calf muscle, left, initial encounter Take 1 Tablet (10 mg) by mouth 3 times daily if needed for Muscle Spasm. 15 Tablet 4 Active progesterone micronized (PROMETRIUM) 200 mg capsule Take 200 mg by mouth once daily. This product contains peanut oil. Please verify patient allergies. Active metFORMIN (GLUCOPHAGE XR) 750 mg Extended-Release tablet Take 750 mg by mouth once daily. Active oxyCODONE (ROXICODONE) 5 mg immediate release tabletIndications:E ndometriosis determined by laparoscopy Take 1-2 Tablets (5-10 mg) by mouth every 4 hours if needed for Pain. 16 Tablet 4 03/23/20 24 Discontinue d(*Medicati on adjustment) oxyCODONE (ROXICODONE) 5 mg immediate release tabletIndications:A bdominal pain, unspecified abdominal location Take 1 Tablet (5 mg) by mouth every 4 hours if needed for Pain. 10 Tablet 4 03/23/20 24 Discontinue d(*Medicati on adjustment) fluconazole (DIFLUCAN) 150 mg tabletIndications:Y east vaginitis Take 1 Tablet (150 mg) by mouth one time for 1 dose. 1 Tablet 4 04/14/20 24 Active Problems Problem Noted Date Diagnosed Date [...] Overview: Added automatically from request for surgery [id number] Anorexia nervosa, restrictin g type, in partial [...] Encounters Date Type Department Care Team Description 04/14/2024 9:45 AM CDT Office Visit [facility] [address] [place] [address] Fareed Eddy MD Follow Up (Post emergency room visit) 04/14/2024 Travel 04/09/2024 11:18 PM CDT - 04/10/2024 12:12 AM CDT Emergency [facility] [address] [place] [address] Jani Garcia MD Strain of calf muscle, left, initial encounter (Primary Dx) Discharge Disposition: Home Self Care 04/09/2024 Travel 03/29/2024 1:30 PM CDT Orders Only [facility] [address] [place] [address] Lab, [place] Outside Order (Jude) 03/29/2024 Travel 03/23/2024 11:00 AM CDT Office Visit [facility] [address] [facility] [address] [place] [address] Carson Cardona MD Follow Up (Medication follow up. /Ankylosing spondylitis, unspecified site of spine ) 03/23/2024 Travel 03/22/2024 Orders Only [facility] [address] [facility] [place] [id number] Vane Black PA Outside Order (Ordered by Williams Roque) 03/09/2024 2:00 PM CDT Procedure Only [facility] [address] [facility] [place] [id number] Cheryl Santo L Ac Acupuncture 03/09/2024 Travel 03/01/2024 2:00 PM CDT Procedure Only [facility] [address] [place] [id number] Cheryl Santo L Ac Acupuncture 03/01/2024 Travel 02/24/2024 2:15 PM CDT Office Visit [facility] [address] [facility] [address] [place] [address] Fareed Eddy MD Follow Up 02/24/2024 Travel 02/24/2024 Telephone [facility] [address] [facility] [address] [place] [address] Carson Cardona MD Questions 02/23/2024 Telephone [facility] [address] [facility] [address] [facility] [address] [place] [address] Kendal Vallejo NP Mental Health Care Coordination 02/22/2024 4:50 PM CDT - 02/22/2024 8:29 PM CDT Emergency [facility] [address] [place] [address] Maria De Jesus Mike NP Status post laparoscopic procedure (Primary Dx); Dysuria Discharge Disposition: Home Self Care 02/22/2024 2:00 PM CDT Telemedicine [facility] [address] [facility] [address] [place] [address] Kendal Vallejo NP Medication Management; Telehealth (ID) 02/22/2024 Travel 02/22/2024 Telephone [facility] [address] [place] [address] Asya Owen MD Prior Authorization (rimegepant (NURTEC) 75 mg orally disintegrating tablet (WORKER COMP)(CLOSED)) 02/21/2024 Travel 02/20/2024 11:25 PM CDT - 02/21/2024 2:29 AM CDT Emergency [address] [address] Alfredo Robb MD Abdominal pain, unspecified abdominal location (Primary Dx) Discharge Disposition: Home Self Care 02/20/2024 Travel 02/20/2024 Nurse Triage [facility] [address] [place] [address] Vane Black PA Post-op Pain/problem (A user error has taken place: encounter opened in error, closed for administrative reasons/) 02/18/2024 Nurse Triage [facility] [address] [place] [address] Vane Black PA Post op questions 02/18/2024 Telephone [facility] [address] [place] [address] Vane Black PA Error-please disregard 02/15/2024 2:00 PM CDT Telemedicine [facility] [address] [facility] [address] [place] [address] Asya Owen MD Follow Up (Head injury doi 10/30/22, virtual visit, no vitals/) 02/15/2024 Travel 02/14/2024 10:10 AM CDT Anesthesia Event [address] [address] Su Thorne MD Klinkner, Jacqueline Marie, CRNA 02/14/2024 10:05 AM CDT - 02/14/2024 11:20 AM CDT Surgery [address] [address] Fareed Eddy MD LAPAROSCOPIC DIAGNOSTIC 02/14/2024 8:47 AM CDT - 02/14/2024 12:24 PM CDT Hospital Encounter [facility] [address] [facility] [place] [address] Fareed Eddy MD Status post laparoscopy (Primary Dx); Chronic pelvic pain in female; Endometriosis determined by laparoscopy Discharge Disposition: Home Self Care 02/14/2024 Nurse Triage [facility] [address] [facility] [address] Vane Black PA Post-op Pain/problem 02/14/2024 Travel 02/12/2024 Refill [facility] [address] [place] [phone] Kendal Vallejo, SHAMPOO TECHNICIAN Refill Request (Clonazepam, Pregabalin) 02/09/2024 3:00 PM CDT Procedure Only [facility] [address] [facility] [place] [id number] Cheryl Santo L Ac Acupuncture 02/09/2024 Travel 02/08/2024 8:15 AM CDT Preop Visit [facility] [address] [facility] [place] [id number] Vane Black PA Preoperative Exam (02/14/24/POSSIBLE LYSIS OF ADHESIONS, Possible fulguration of implants/Dr. Eddy/[facility] /) 02/08/2024 Telephone [facility] [address] [place] [address] Asya Owen MD 02/08/2024 Transcribe Orders [facility] [address] [place] [address] Asya Owen MD 02/08/2024 Telephone [facility] [address] [place] [phone] Kendal Vallejo NP Error-please disregard 02/07/2024 Travel 02/03/2024 10:30 AM CDT Procedure Only [facility] [address] [place] [id number] Cheryl Santo L Ac Acupuncture (Initial) 02/03/2024 Travel 01/31/2024 1:40 PM CDT Office Visit [facility] [address] [facility] [address] [place] [address] Carson Cardona MD Follow Up (Last visit 12/2023) 01/31/2024 Travel 01/27/2024 1:00 PM CDT Office Visit [facility] [address] [facility] [address] [place] [address] Fareed Eddy MD Consult (Endometriosis, PCOS/Cyst rupture and other nurse gynecology conditions) 01/27/2024 Travel 01/25/2024 12:45 PM CDT Office Visit [facility] [address] [place] [address] Vane Black PA Physical (23 Year Old/Pap/Medication management /PCOS/Endo- uterus pain /Non fasting ); Immunization/Injecti on 01/25/2024 Travel 01/20/2024 Orders Only [facility] [address] [facility] [address] [place] [address] Carson Cardona MD <No scans attached> 01/17/2024 10:30 AM CDT Office Visit [facility] [address] [facility] [address] [place] [address] Infusion Therapy (Simponi 200 mg #1/3) 01/16/2024 Travel 01/14/2024 Telephone [facility] [address] [facility] [address] [place] [address] Carson Cardona MD Infusion Therapy from Last 3 Months Immunizations Name Administration Dates Next Due COVID-19 Vaccine Spikevax (M oderna 50mcg/0.5mL) 12YO+ [id number] Formula PF 08/23/2023 COVID-19 vaccine (Moderna 100mcg/0.5mL) [...] PHQ-2 Answer Date Recorded PHQ-2 TOTAL SCORE 4 02/21/2024 Social Connections Answer Date Recorded Frequency of [...] Sex Assigned at Female 09/15/2023 10:11 AM BURSAR Gender Identity Female 09/15/2023 10:11 AM BURSAR Sexual Orientation Not on file Travel History Travel Start Travel End [place] 03/16/2024 03/20/2024 Obstetrics History Para Term AB IAB SAB Ectopic Multiple Livin g Live Births 0 0 0 0 0 0 0 0 0 0 0 Last Filed Vital Signs Vital Sign Reading Time Taken Comments Blood Pressure 102/68 04/14/2024 9:55 AM CDT Pulse 72 04/10/2024 12:00 AM CDT Temperature 36.9 ??C (98.4 ??F) 04/09/2024 1 1:26 PM CDT Respiratory Rate 18 04/09/2024 11:2 6 PM CDT Oxygen Saturation 98% 04/10/2024 12: 00 AM CDT Inhaled Oxygen Concentration - - Weight 98.4 kg (216 lb 14.4 oz) 04/14/2024 9:55 AM CDT Height 172.7 cm (5' 8) 04/14/2024 9:55 AM CDT Body Mass Index 32.98 04/14/2024 9:55 AM CDT Plan of Treatment Upcoming Encounters Date Type Department Care Team (Late st Contact Info) Description 05/16/2024 2:00 PM CDT Office Visit [facility] [address] [facility] [address] [place] [address] Asya Owen MD [address] [facility] [address] [place] [address] 06/23/2024 10:40 AM BURSAR Telemedicine [facility] [address] [place] [id number] Denny Pino MD [address] [place] [address] Health Maintenance Due Date Last Done Comments COVID-19 vaccine series (2022- season) 2023 08/23/2023, 06/26/2022, 08/02/2021, Additional history exists Influenza for age 9-49 04/16/2024 3, 06/26/2022, 04/25/2019, Additional history exists Pap test for age 21-65 01/24/2025 4, 05/30/2020 (Verified in Care Everywhere or Patient Record) Depression screening for age 12+ 02/23/2025 02/24/2024, 02/24/2024, 02/23/2024, Additional history exists BMI (ht and wt on same day) for age 18+ 04/14/2025 04/14/2024, 02/08/2024, 12/27/2023, Additional history exists Chlamydia for age 16-24 04/14/2025 04/14/20 24, 01/25/2024, 09/03/2022, Additional history exists Tetanus booster 01/24/2034 [...] Procedure Name Priority Date/Time Associated Diagnosis Comments TRICHOMONAS, TRIXIE, AND BACTERIAL VAGINOSIS BY REGINA Routine 04/14/2024 10:37 AM CDT Screening for STD (sexually transmitted disease) GC CHLAMYDIA TRACH PROBE Routine 04/14/2024 10:37 AM CDT Screening for STD (sexually transmitted disease) LIPID PANEL Routine 03/29/2024 8:57 AM CDT Bipolar disorder, unspecified (HC) TSH Routine 03/29/2024 8:57 AM CDT Bipolar disorder, unspecified (HC) COMP METABOLIC PANEL Routine 03/29/2024 8:57 AM CDT Bipolar disorder, unspecified (HC) INSULIN Routine 03/29/2024 8:57 AM CDT Bipolar disorder, unspecified (HC) ESTRADIOL Routine 03/29/2024 8:57 AM CDT Bipolar disorder, unspecified (HC) PROGESTERONE Routine 03/29/2024 8:57 AM CDT Bipolar disorder, unspecified (HC) TESTOSTERONE BIOAVAILABLE & FREE Routine 03/29/2024 8:57 AM CDT Bipolar disorder, unspecified (HC) LITHIUM Routine 03/29/2024 8:57 AM CDT Polycystic ovaries HEMOGLOBIN A1C SCREENING Routine 03/29/2024 8:57 AM CDT PCOS (polycystic ovarian syndrome) ACUPUNCTURE PLAN OF CARE Routine 03/09/2024 1:54 PM CDT Chronic post-traumatic headache, not intractable Work related injury Concussion without loss of consciousness, subsequent encounter Whiplash, subsequent encounter Chest wall pain ACUPUNCTURE PLAN OF CARE Routine 03/01/2024 1:52 PM CDT Chronic post-traumatic headache, not intractable Work related injury Concussion without loss of consciousness, subsequent encounter Whiplash, subsequent encounter Chest wall pain CT ABDOMEN PELVIS W STAT 02/22/2024 6 :32 PM CDT ,SERUM STAT 02/22/2024 5:57 PM CDT CBC WITH AUTO DIFFERENTIAL STAT 02/22/2024 5:56 PM CDT LACTATE VENOUS STAT 02/22/2024 5:56 PM CDT LIPASE STAT 02/22/2024 5:56 PM CDT HEPATIC FUNCTION PANEL STAT 02/22/2024 5:56 PM CDT COMP METABOLIC PANEL STAT 02/22/2024 5:56 PM CDT CBC WITH AUTO DIFFERENTIAL STAT 02/22/2024 5:56 PM CDT URINE CULTURE VIV 02/22/2024 5:29 PM CDT UA W/ SEDIMENT EXAM REFLEXED PER CRITERIA STAT 02/22/2024 5:[address] ABDOMEN PELVIS W STAT 02/21/2024 1 :03 AM CDT CWS PATH REVIEW HEMATOLOGY STAT 02/21/2024 12:21 AM CDT RED CELL MORPHOLOGY STAT 02/21/2024 1 2:21 AM CDT PLATELET ESTIMATE STAT 02/21/2024 12: 21 AM CDT MANUAL DIFFERENTIAL STAT 02/21/2024 1 2:21 AM CDT CBC WITH AUTO DIFFERENTIAL STAT 02/21/2024 12:21 AM CDT HEPATIC FUNCTION PANEL STAT 02/21/2024 12:21 AM CDT LIPASE STAT 02/21/2024 12:21 AM CDT LACTATE VENOUS STAT 02/21/2024 12:21 AM CDT BASIC METABOLIC PANEL STAT 02/21/2024 12:21 AM CDT PROTIME-INR STAT 02/21/2024 12:21 AM CDT CBC WITH AUTO DIFFERENTIAL STAT 02/21/2024 12:21 AM CDT URINALYSIS MICROSCOPIC STAT 02/20/2024 11:44 PM CDT URINE STAT 02/20/2024 11:44 PM CDT UA W/ SEDIMENT EXAM REFLEXED PER CRITERIA STAT 02/20/2024 11:44 PM CDT ENDOTRACHEAL TUBE Routine 02/14/2024 10: 22 [...] encounter Whiplash, subsequent encounter Chest wall pain 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 THIN PREP PAP SCREEN IMAGED Routine 01/25/2024 1:25 PM CDT Screening for malignant neoplasm of cervix GC CHLAMYDIA TRACH PROBE Routine 01/25/2024 1:25 PM CDT Screening examination for venereal disease ANTI HCV Routine 12/27/2023 9:25 AM CDT Spondyloarthropathy of sacroiliac joint LC HIV-1/O/2, 4TH GENERATION Routine 09/03/2022 5:17 PM BURSAR Febrile illness Dysuria from Last 3 Months or Most Recently Relevant to Health Maintenance Results * TRICHOMONAS, TRIXIE, AND BACTERIAL VAGINOSIS BY REGINA (04/14/2024 10:37 AM CDT) TRIXIE SPECIES Negative Negative 7:31 PM CDT [facility] TRIXIE GLABRATA Negative Negative 04/14/2024 7:31 PM CDT [facility] TRICHOMONAS VVA Negative Negative 7:31 PM CDT [facility] BACTERIAL VAGINOSIS Negative Negative 04/14/2024 7:31 PM CDT [facility] Other VAGINAL SWAB / Unknown Non-Blood / Unknown 04/14/2024 10:37 AM CDT 04/14/2024 10:37 AM CDT Fareed Eddy MD MICROBIOL OGY [facility] [address] [place] [address], * GC CHLAMYDIA TRACH PROBE (04/14/2024 10:37 AM CDT) Only the most recent of2 resultswithin the time period is included. CHLAMYDIA PROBE Negative 8:39 PM CDT [facility] N GONORRHOEAE PROBE Negative 04/14/2024 8:39 PM CDT [facility] Other VAGINAL SWAB / Unknown Non-Blood / Unknown 04/14/2024 10:37 AM CDT 04/14/2024 10:37 AM CDT Fareed Eddy MD MICROBIOL OGY [facility] [address] [place] [address], * TESTOSTERONE BIOAVAILABLE & FREE (03/29/2024 8:57 AM CDT) Pathologist [facility] TESTOSTERONE, TOTAL 20 ng/dL 04/06 8:37 AM CDT [facility] Comment: This test was developed and its performance characteristics determined by [employer]. It has not been cleared or approved by the Food and Drug Administration. Reference Range: Adult Females ??Premenopausal ??10 - 55 ??Postmenopausal ??7 - 40 PERCENT FREE TESTOSTERONE (DIALYSIS) 0.7 % 04/06/2024 8:37 AM CDT [facility] Comment: This test was developed and its performance characteristics determined by [employer]. It has not been cleared or approved by the Food and Drug Administration. Reference Range: Adult Females: 0.8 - 1.4 FREE TESTOSTERONE SERUM 1.4 pg/mL 04/06/2024 8:37 AM T [facility] Comment: Reference Range: Adult Females: 1.1 - 6.3 BIOAVAILABLE TESTOSTERONE PERCENT 7.8 % 04/06/2024 8:37 AM CDT [facility] BIOAVAILABLE TESTOSTERONE S 1.6 ng/dL 04/06/2024 8:37 AM T [facility]) Comment: Reference Range: Adult Females: 1.1 - 14.3 Blood BLOOD SPECIMEN / Unknown Venipuncture / Unknown 03/29/2024 8:57 AM CDT 03/29/2024 9:01 AM CDT Narrative [facility] - 04/06/2024 8:37 AM CDT Performed at: ??01 - [employer] [address] [place] [address] ??[id number] Medical Translator: Obinna Looney MD, Phone: ??[phone] Vane ABERNATHY SEND OUTS [facility] ([facility]) [address] [place] [address], [place] * HEMOGLOBIN A1C SCREENING (03/29/2024 8:57 AM CDT) HEMOGLOBIN A1C SCREENING 4.4 <=6.4 % 03/29/2024 5:52 PM CDT [facility] Blood BLOOD SPECIMEN / Unknown Venipuncture / Unknown 03/29/2024 8:57 AM CDT 03/29/2024 9:01 AM CDT Narrative [facility] - 03/29/2024 5:52 PM CDT ? (<5.7%) ?Normal ? (5.7% to 6.4%) ? Indicates prediabetes ? (>=6.5%) ? Confirms diabetes Falsely low levels may be seen with: Recent Transfusion, Recent Significant Blood Loss, Hemolytic Diseases, or Falsely elevated levels may be seen with: Untreated Anemias, Splenectomy Fareed Eddy MD CHEMISTRY [facility] [address] [place] [address], * TSH (03/29/2024 8:57 AM CDT) TSH 2.86 0.27 - 4.20 uIU/mL 03/29/2024 5:14 PM CDT [facility] Blood BLOOD SPECIMEN / Unknown Venipuncture / Unknown 03/29/2024 8:57 AM CDT 03/29/2024 9:01 AM CDT Narrative [facility] - 03/29/2024 5:14 PM CDT In Adults, TSH values between 5.00 and 10.00 uIU/ml do not necessarily indicate the presence of Hypothyroidism. Correlation with clinical findings such as presence of goiter and/or Thyroperoxidase (TPO) Antibody may be helpful. For more information please refer to HILARY 2004; 291: 228-238. Vane ABERNATHY CHEMISTRY [facility] [address] [place] [address], * PROGESTERONE (03/29/2024 8:57 AM CDT) PROGESTERONE 0.3 ng/mL 03/29/2024 5:15 PM CDT [facility] Blood BLOOD SPECIMEN / Unknown Venipuncture / Unknown 03/29/2024 8:57 AM CDT 03/29/2024 9:01 AM CDT Narrative [facility] - 03/29/2024 5:15 PM CDT ? Progesterone Ranges Healthy Male ? <0.1- ??0.2 ?ng/ml Healthy Female - Follicular ?<0.1- ??0.2 ?ng/ml Healthy Female - Ovulation ?0.1- ??4.1 ?ng/ml Healthy Female - Luteal ? 4.1- 14.5 Healthy Female - 1st Trimester ??11.0- 44.3 ?ng/ml Healthy Female - , 2nd Trimester 25.4- 83.4 ?ng/ml Healthy Female - , 3rd Trimester 58.7-214.0 ?ng/ml Healthy Female - Post menopause ?<0.1- ??0.1 ?ng/ml Biotin supplements may cause clinically significant interference for this test assay. If interference is suspected, it is strongly recommended that biotin is discontinued for at least one week prior to retesting. ?? Vane ABERNATHY SEND OUTS Performing Organization Address [facility]/ZIP Co de Phone Number [facility] [address] [place] [address], * INSULIN (03/29/2024 8:57 AM CDT) Pathologist [facility] INSULIN,SERUM 20.0 2.6 - 24.9 uIU/mL 03/29/2024 4:13 PM CDT [facility] Blood BLOOD SPECIMEN / Unknown Venipuncture / Unknown 03/29/2024 8:57 AM CDT 03/29/2024 9:01 AM CDT Narrative [facility] - 03/29/2024 4:13 PM CDT Biotin supplements may cause clinically significant interference for this test assay. ??If interference is suspected, it is strongly recommended that biotin is discontinued for at least one week prior to retesting. Vane ABERNATHY SEND OUTS Performing Organization Address [facility] Co de Phone Number [facility] [address] [place] [address], * ESTRADIOL (03/29/2024 8:57 AM CDT) Pathologist [facility] ESTRADIOL 14.1 pg/mL 03/29/2024 5:14 PM CDT [facility] Blood BLOOD SPECIMEN / Unknown Venipuncture / Unknown 03/29/2024 8:57 AM CDT 03/29/2024 9:01 AM CDT Narrative [facility] - 03/29/2024 5:14 PM CDT ?Estradiol Ranges Healthy Male ? 11.3- ?? 43.2 ?pg/ml Healthy Female - Follicular ?30.9- ?? 90.4 ?pg/ml Healthy Female - Ovulation ? 60.4- ??533.0 ?pg/ml Healthy Female - Luteal ?60.4- ??232.0 ?pg/ml Healthy Female - , 1st Trimester ?154.0- ??3,243.0 ??pg/ml Healthy Female - , 2nd Trimester ??1,561.0- 21,280.0 ??pg/ml Healthy Female - , 3rd Trimester ??8,525.0->30,000.0 ??pg/ml Healthy Female - Post menopause ? <5.0- ?? 138.0 ?pg/ml Biotin supplements may cause clinically significant interference for this test assay. If interference is suspected, it is strongly recommended that biotin is discontinued for at least one week prior to retesting. Erroneous test results may be obtained from samples taken from patients who have been exposed to vaccines containing rabbit serum or when keeping rabbits as pet animals. Due to the risk of cross reactivity, this assay should not be used when monitoring Estradiol levels in patients being treated with Fulvestrant (Faslodex??) Steroid drugs may interfere with this test. Vane ABERNATHY SEND OUTS [facility] [address] [place] [address], * LITHIUM (03/29/2024 8:57 AM CDT) LITHIUM 0.7 0.6 - 1.2 mmol/L 03/29/2024 5:12 PM CDT [facility] DATE OF LAST DOSE 03/28/2024 03/29/2024 5:12 PM CDT [facility] TIME OF LAST DOSE 11:00 PM 03/29/2024 5:12 PM CDT [facility] Blood BLOOD SPECIMEN / Unknown Venipuncture / Unknown 03/29/2024 8:57 AM CDT 03/29/2024 9:01 AM CDT Vane ABERNATHY CHEMISTRY Performing Organization Address City/[facility]/ZIP Co de Phone Number [facility]OR[facility]-CENTRAL LABORATORY [address] [place] [phone], [place] * LIPID PANEL (03/29/2024 8:57 AM CDT) [facility] CHOLESTEROL,TOTAL 150 100 - 199 mg/dL 03/29/2024 5:14 PM CDT [facility] Comment: Cholesterol, Total Reference Ranges Desirable <200 mg/dL Borderline 200-239 mg/dL High >=240 mg/dL TRIGLYCERIDES 109 <150 mg/dL 03/29/2024 5:14 PM CDT [facility] HDL CHOLESTEROL 57 >40 mg/dL 5:14 PM CDT [facility] TRAL LAB[facility]ORY NON-HDL CHOLESTEROL 93 <145 mg/dl 03/29/2024 5:14 PM CDT [facility] CHOL/HDL RATIO 2.63 <4.50 03/29/2024 5:14 PM CDT [facility] LDL CHOLESTEROL 71 <=130 mg/dL 03/29/2024 5:14 PM CDT [facility] VLDL CHOLESTEROL 22 <=30 mg/dL 03/29/2024 5:14 PM CDT [facility] TR[facility] LAB[facility]ATORY PROVIDER ORDERED STATUS RANDOM 03/29/2024 5:14 PM CDT [facility] Blood BLOOD SPECIMEN / Unknown Venipuncture / Unknown 03/29/2024 8:57 AM CDT 03/29/2024 9:01 AM CDT Vane ABERNATHY CHEMISTRY Performing Organization Address City/[facility]/ZIP Co de Phone Number [facility] 99[facility]-CENTRAL LABORATORY [address] [place] [address], [place] * (ABNORMAL) COMP METABOLIC PANEL (03/29/2024 8:57 AM CDT) Only the most recent of2 resultswithin the time period is included. [facility] SODIUM 139 136 - 145 mmol/L 03/29/2024 5:14 PM [facility] POTASSIUM 4.3 3.5 - 5.1 mmol/L 03/29/2024 5:14 PM [facility] CHLORIDE 108(H) 98 - 107 mmol/L 03/29/2024 5:14 PM [facility] CO2,TOTAL 21(L) 22 - 29 mmol/L 03/29/2024 5:14 PM [facility] ANION GAP 10 5 - 18 03/29/2024 5:14 PM [facility] GLUCOSE 89 70 - 99 mg/dL 03/29/2024 5:14 PM [facility] CALCIUM 9.1 8.6 - 10.0 mg/dL 03/29/2024 5:14 PM [facility] BUN 12 6 - 20 mg/dL 03/29/2024 5:14 PM [facility] CREATININE 0.71 0.50 - 0.90 mg/dL 03/29/2024 5:14 PM [facility] BUN/CREAT RATIO 17 10 - 20 5:14 PM [facility] eGFR >90 >90 mL/min/1.7 3m2 03/29/2024 5:14 PM [facility] Comment:As of 2021, eG FR is calculated by the CKD-EPI creatinine equation without race adjustment. ??eGFR can be influenced by muscle mass, exercise, and diet. ??The reported eGFR is an estimation only and is only applicable if the renal function is stable. ALBUMIN 4.0 4.0 - 4.9 g/dL 03/29/2024 5:14 PM T [facility] TR[facility] LAB[facility] PROTEIN,TOTAL 6.9 6.0 - 8.0 g/dL 03/29/2024 5:14 PM [facility] BILIRUBIN,TOTAL 0.2 0.0 - 1.2 mg/dL 03/29/2024 5:14 PM CDT [facility] TR[facility] ALK PHOSPHATASE 45 35 - 104 IU/L 03/29/2024 5:14 PM CDT [facility] ALT (SGPT) 9(L) 10 - 35 IU/L 03/29/2024 5:14 PM CDT [facility] AST (SGOT) 26 10 - 35 IU/L 03/29/2024 5:14 PM CDT [facility] Blood BLOOD SPECIMEN / Unknown Venipuncture / Unknown 03/29/2024 8:57 AM CDT 03/29/2024 9:01 AM CDT Vane ABERNATHY CHEMISTRY [facility] [address] [place] [address], [place] * CT ABDOMEN PELVIS W (02/22/2024 6:32 PM CDT) Only the most recent of2 resultswithin the time period is included. Anatomical Region Laterality Modality Abdomen, Pelvis, AORTA, LIVER, SPLEEN Computed Tomography 02/22/2024 7:37 PM CDT Impressions 02/22/2024 7:37 PM CDT 1. Mild circumferential urinary bladder wall thickening, may be secondary to underdistention. Recommend correlation with urinalysis. 2. Intrauterine contraceptive device is present, unchanged in position since prior study. Please note that all CT scans at this facility use dose modulation, iterative reconstruction, and/or weight-based dosing when appropriate to reduce radiation dose to as low as reasonably achievable. Dictated by Quyen De Dios MD @ 02/22/2024 7:37:30 PM (Electronically Signed) Narrative 02/22/2024 7:37 PM CDT For Patients: ??As a result of the Cures Act, medical imaging exams and procedure reports are released immediately into your electronic medical record. ??You may view this report before your referring provider. ??If you have questions, please contact your health care provider. INDICATION: Abdominal pain. TECHNIQUE: CT abdomen and pelvis acquired with 100 mL Omnipaque 300 contrast. COMPARISON: CT abdomen/pelvis dated 02/21/2024. FINDINGS: Lower chest: No focal consolidation. Limited evaluation secondary to streak artifact. Liver: No suspicious focal hepatic lesion. Gallbladder and bile ducts: Mild prominence of the intrahepatic biliary ducts is unchanged. No calcified gallstones. Pancreas: Unremarkable. Spleen: Unremarkable. Adrenal glands: Unremarkable. Kidneys: Kidneys enhance symmetrically, without hydronephrosis. Multifocal cortical scarring of the left kidney, unchanged. Retroperitoneum: No lymphadenopathy. Bowel and mesentery: Bowel is not obstructed. No significant ascites, no pneumoperitoneum. Normal appendix. Bladder: Mild circumferential bladder wall thickening. Reproductive organs: Intrauterine contraceptive device is present, unchanged in position since prior study. Pelvic lymph nodes: No lymphadenopathy. Vessels: Unremarkable. Abdominal wall: No acute abdominal wall abnormality. Bones: Stable postsurgical changes of the spine. Procedure Note Quyen De Dios MD - 02/22/2024 For Patients: As a result of the Cures Act, medical imagingexams and procedure reports are released immediately into your electronicmedical record. You may view this report before your referring provider.If you have questions, please contact your health care provider. INDICATION: Abdominal pain. TECHNIQUE: CT abdomen and pelvis acquired with 100 mL Omnipaque 300 contrast. COMPARISON: CT abdomen/pelvis dated 02/21/2024. FINDINGS: Lower chest: No focal consolidation. Limited evaluation secondary to streak artifact. Liver: No suspicious focal hepatic lesion. Gallbladder and bile ducts: Mild prominence of the intrahepatic biliaryducts is unchanged. No calcified gallstones. Pancreas: Unremarkable. Spleen: Unremarkable. Adrenal glands: Unremarkable. Kidneys: Kidneys enhance symmetrically, without hydronephrosis. Multifocalcortical scarring of the left kidney, unchanged. Retroperitoneum: No lymphadenopathy. Bowel and mesentery: Bowel is not obstructed. No significant ascites, nopneumoperitoneum. Normal appendix. Bladder: Mild circumferential bladder wall thickening. Reproductive organs: Intrauterine contraceptive device is present,unchanged in position since prior study. Pelvic lymph nodes: No lymphadenopathy. Vessels: Unremarkable. Abdominal wall: No acute abdominal wall abnormality. Bones: Stable postsurgical changes of the spine. IMPRESSION: 1. Mild circumferential urinary bladder wall thickening, may be secondaryto underdistention. Recommend correlation with urinalysis. 2. Intrauterine contraceptive device is present, unchanged in positionsince prior study. Please note that all CT scans at this facility use dose modulation,iterative reconstruction, and/or weight-based dosing when appropriate toreduce radiation dose to as low as reasonably achievable. Dictated by Quyen De Dios MD @ 02/22/2024 7:37:30 PM (Electronically Signed) Maria De Jesus Mike SHAMPOO TECHNICIAN CT * , Serum (02/22/2024 5:57 PM CDT) [facility] ,SERU M Negative Negative 02/22/2024 6:12 PM CDT [facility] Blood BLOOD SPECIMEN / Unknown Venipuncture / Unknown 02/22/2024 5:57 PM CDT 02/22/2024 5:59 PM CDT Maria De Jesus Mike NP CHEMISTRY [facility] [address] [place] [address] * (ABNORMAL) CBC WITH AUTO DIFFERENTIAL (02/22/2024 5:56 PM CDT) Only the most recent of2 resultswithin the time period is included. [facility] WHITE BLOOD COUNT 12.4(H) 4.5 - 11.0 thou/cu mm 02/22/2024 6:03 PM CDT [facility] RED BLOOD COUNT 4.44 4.00 - 5.20 mil/cu mm 02/22/2024 6:03 PM CDT [facility] HEMOGLOBIN 14.0 12.0 - 16.0 g/dL 02/22/2024 6:03 PM T [facility] HEMATOCRIT 42.2 33.0 - 51.0 % 02/22/2024 6:03 PM [facility] MCV 95 80 - 100 fL 02/22/2024 6:03 PM T [facility] MCH 31.5 26.0 - 34.0 pg 02/22/2024 6:03 PM [facility] MCHC 33.2 32.0 - 36.0 g/dL 02/22/2024 6:03 PM [facility] RDW 13.1 11.5 - 15.5 % 02/22/2024 6:03 PM [facility] PLATELET COUNT 255 140 - 440 thou/cu mm 02/22/2024 6:03 PM [facility] MPV 9.1 6.5 - 11.0 fL 02/22/2024 6:03 PM [facility] % NEUT 49.3 % 02/22/2024 6:03 PM [facility] % LYMPH 39.0 % 02/22/2024 6:03 PM [facility] % MONO 8.3 % 02/22/2024 6:03 PM [facility] % EOS 3.0 % 02/22/2024 6:03 PM [facility] % BASO 0.4 % 02/22/2024 6:03 PM [facility] ABSOLUTE NEUTROPHILS 6.1 1.7 - 7.0 thou/cu mm 02/22/2024 6:03 PM [facility] ABSOLUTE LYMPHOCYTES 4.8(H) 0.9 - 2.9 thou/cu mm 02/22/2024 6:03 PM [facility] ABSOLUTE MONOCYTES 1.0(H) <0.9 thou/cu mm 02/22/2024 6:03 PM [facility] ABSOLUTE EOSINOPHILS 0.4 <0.5 thou/cu mm 02/22/2024 6:03 PM [facility] ABSOLUTE BASOPHILS 0.1 <0.3 thou/cu mm 02/22/2024 6:03 PM [facility] Blood BLOOD SPECIMEN / Unknown Venipuncture / Unknown 02/22/2024 5:56 PM CDT 02/22/2024 5:59 PM CDT Maria De Jesus Mike NP HEMATOLOGY [facility] [address] [place] [address] * LACTATE VENOUS (02/22/2024 5:56 PM CDT) Only the most recent of2 resultswithin the time period is included. LACTATE,VENOUS 0.7 0.5 - 2.0 mmol/L 02/22/2024 6:34 PM CDT [facility] Blood BLOOD SPECIMEN / Unknown Venipuncture / Unknown 02/22/2024 5:56 PM CDT 02/22/2024 5:59 PM CDT Maria De Jesus Mike NP CHEMISTRY Performing Organization Address [facility] Number [facility] [address] [place] [address] * Lipase (02/22/2024 5:56 PM CDT) Only the most recent of2 resultswithin the time period is included. Pathologist [facility] LIPASE 30.1 13.0 - 60.0 IU/L 02/22/2024 6:32 PM CDT [facility] Blood BLOOD SPECIMEN / Unknown Venipuncture / Unknown 02/22/2024 5:56 PM CDT 02/22/2024 5:59 PM CDT Maria De Jesus Mike NP CHEMISTRY Performing Organization Address [facility] de Phone Number [facility] [address] [place] [address] * (ABNORMAL) Hepatic Function Panel (02/22/2024 5:56 PM CDT) Only the most recent of2 resultswithin the time period is included. ALBUMIN 4.0 4.0 - 4.9 g/dL 02/22/2024 6:32 PM CDT [facility] PROTEIN,TOTAL 6.5 6.0 - 8.0 g/dL 02/22/2024 6:32 PM CDT [facility] BILIRUBIN,TOTAL 0.3 0.0 - 1.2 mg/dL 02/22/2024 6:32 PM CDT [facility] BILIRUBIN,DIRECT <0.2 0.0 - 0.3 mg/dL 02/22/2024 6:32 PM CDT [facility] BILIRUBIN,INDIRE CT 02/22/2024 6:32 PM CDT [facility] Comment:Unable to calculate, Direct Bili <0.2 ALK PHOSPHATASE 61 35 - 104 IU/L 02/22/2024 6:32 PM CDT [facility] ALT (SGPT) 7(L) 10 - 35 IU/L 02/22/2024 6:32 PM CDT [facility] AST (SGOT) 16 10 - 35 IU/L 02/22/2024 6:32 PM CDT [facility] Blood BLOOD SPECIMEN / Unknown Venipuncture / Unknown 02/22/2024 5:56 PM CDT 02/22/2024 5:59 PM CDT Maria De Jesus Mike NP CHEMISTRY [facility] [address] [place] [address] * URINE CULTURE (02/22/2024 5:29 PM CDT) CULTURE <10,000 CFU/mL multiple organisms 02/23/2024 6:40 PM CDT [facility] Urine URINE SPECIMEN / Unknown Non-Blood / Unknown 02/22/2024 5:29 PM CDT 02/22/2024 5:31 PM CDT Maria De Jesus Mike NP MICROBIOLOG Y [facility] [address] [place] [address], * UA w/ SEDIMENT EXAM REFLEXED PER CRITERIA (02/22/2024 5:29 PM CDT) Only the most recent of2 resultswithin the time period is included. COLOR Yellow Yellow Color 02/22/2024 5:34 PM T [facility] CLARITY Clear Clear Clarity 02/22/2024 5:34 PM T [facility] SPECIFIC GRAVITY,URINE 1.020 1.010, 1.015, 1.020, 1.025 02/22/2024 5:34 PM T [facility] PH,URINE 7.0 6.0, 7.0, 8.0, 5.5, 6.5, 7.5, 8.5 02/22/2024 5:34 PM [facility] UROBILINOGEN, QUALITATIVE Normal Normal EU/dl 02/22/2024 5:34 PM [facility] PROTEIN, URINE Negative Negative mg/dL 02/22/2024 5:34 PM T [facility] GLUCOSE, URINE Negative Negative mg/dL 02/22/2024 5:34 PM [facility] KETONES,URINE Negative Negative mg/dL 02/22/2024 5:34 PM [facility] BILIRUBIN,URI NE Negative Negative 02/22/2024 5:34 PM [facility] OCCULT BLOOD,URINE Negative Negative 02/22/2024 5:34 PM [facility] NITRITE Negative Negative 02/22/2024 5:34 PM T [facility] LEUKOCYTE ESTERASE Negative Negative 02/22/2024 5:34 PM [facility] Urine URINE SPECIMEN / Unknown Non-Blood / Unknown 02/22/2024 5:29 PM CDT 02/22/2024 5:31 PM CDT Maria De Jesus Mike SHAMPOO TECHNICIAN URINE [facility] [address] [place] [address] * CWS PATH REVIEW HEMATOLOGY (02/21/2024 12:21 AM CDT) PATH COMMENT Reviewed 02/23/2024 10:51 AM CDT [facility] Comment:Reviewed by YISSEL on Blood BLOOD SPECIMEN / Unknown IV Start / Unknown 02/21/2024 12:21 AM CDT 02/21/2024 12:25 AM CDT Alfredo Robb MD LABORATORY Performing Organization Address City/[facility]/ZIP Co de Phone Number [facility]-C[facility]TRAL LABORATORY [address] [place] [address], * RED CELL MORPHOLOGY (02/21/2024 12:21 AM CDT) RBC COMMENT RBC morphology appears normal RBC morphology appears normal, RBC morphology within normal limits for newborns. 02/21/2024 12:55 AM CDT [facility] Blood BLOOD SPECIMEN / Unknown IV Start / Unknown 02/21/2024 12:21 AM CDT 02/21/2024 12:25 AM CDT Alfredo Robb MD HEMATOLOGY Performing Organization Address City/[facility]/ZIP Co de Phone Number [address] [address] * PLATELET ESTIMATE (02/21/2024 12:21 AM CDT) PLATELET ESTIMATE Adequate Adequate, No estimate 02/21/2024 12:55 AM CDT [facility] Blood BLOOD SPECIMEN / Unknown IV Start / Unknown 02/21/2024 12:21 AM CDT 02/21/2024 12:25 AM CDT Alfredo Robb MD HEMATOLOGY Performing Organization Address City/[facility] Co de Phone Number [address] [address] * (ABNORMAL) MANUAL DIFFERENTIAL (02/21/2024 12:21 AM CDT) % NEUTROPHILS 52.0 % 02/21/2024 12:55 AM CDT [facility] % LYMPHOCYTES 41.0 % 02/21/2024 12:55 AM CDT [facility] % MONOCYTES 7.0 % 02/21/2024 12:55 AM CDT [facility] % EOSINOPHILS 0.0 % 02/21/2024 12:55 AM CDT [facility] % BASOPHILS 0.0 % 02/21/2024 12:55 AM CDT [facility] NEUTROPHILS ABSOLUTE 7.3(H) 1.7 - 7.0 thou/cu mm 02/21/2024 12:55 AM CDT [facility] LYMPHOCYTES ABSOLUTE 5.8(H) 0.9 - 2.9 thou/cu mm 02/21/2024 12:55 AM CDT [facility] MONOCYTES ABSOLUTE 1.0(H) <0.9 thou/cu mm 02/21/2024 12:55 AM CDT [facility] EOSINOPHILS ABSOLUTE 0.0 <0.5 thou/cu mm 02/21/2024 12:55 AM CDT [facility] BASOPHILS ABSOLUTE 0.0 <0.3 thou/cu mm 02/21/2024 12:55 AM CDT [facility] Blood BLOOD SPECIMEN / Unknown IV Start / Unknown 02/21/2024 12:21 AM CDT 02/21/2024 12:25 AM CDT Alfredo Robb MD HEMATOLOGY Performing Organization Address City/State/[facility] Co de Phone Number [facility] [address] [place] [address] * PROTIME-INR (02/21/2024 12:21 AM CDT) INR 1.0 <1.3 02/21/2024 12:34 AM CDT [facility] PROTIME 11.0 10.3 - 12.3 sec 02/21/2024 12:34 AM CDT [facility] Blood BLOOD SPECIMEN / Unknown IV Start / Unknown 02/21/2024 12:21 AM CDT 02/21/2024 12:25 AM CDT Narrative [facility] - 02/21/2024 12:34 AM CDT ?Therapeutic Range 2.0-3.0 for most anticoagulated patients 2.5-3.5 or 4.0 for high risk patients The INR is only used for patients on stable oral anticoagulant therapy. It makes no significant contribution to the diagnosis or treatment of patients whose Protime is prolonged for other reasons. INR results are increased when heparin levels exceed 1.0 U/mL, which corresponds to an aPTT >125 seconds if the patient is on UFH. Alfredo Robb MD HEMATOLOGY [facility] [address] [place] [address] * BASIC METABOLIC PANEL (02/21/2024 12:21 AM CDT) SODIUM 139 136 - 145 mmol/L 02/21/2024 12:46 AM CDT [facility] POTASSIUM 4.1 3.5 - 5.1 mmol/L 02/21/2024 12:46 AM CDT [facility] CHLORIDE 106 98 - 107 mmol/L 02/21/2024 12:46 AM CDT [facility] CO2,TOTAL 22 22 - 29 mmol/L 02/21/2024 12:46 AM CDT [facility] ANION GAP 11 5 - 18 02/21/2024 12:46 AM CDT [facility] GLUCOSE 97 70 - 99 mg/dL 02/21/2024 12:46 AM CDT [facility] CALCIUM 9.2 8.6 - 10.0 mg/dL 02/21/2024 12:46 AM CDT [facility] BUN 10 6 - 20 mg/dL 02/21/2024 12:46 AM CDT [facility] CREATININE 0.66 0.50 - 0.90 mg/dL 02/21/2024 12:46 AM T [facility] BUN/CREAT RATIO 15 10 - 20 12:46 AM CDT [facility] eGFR >90 >90 mL/min/1.7 3m2 02/21/2024 12:46 AM T [facility] Comment:As of 2021, eG FR is calculated by the CKD-EPI creatinine equation without race adjustment. ??eGFR can be influenced by muscle mass, exercise, and diet. ??The reported eGFR is an estimation only and is only applicable if the renal function is stable. Blood BLOOD SPECIMEN / Unknown IV Start / Unknown 02/21/2024 12:21 AM CDT 02/21/2024 12:25 AM CDT Alfredo Robb MD CHEMISTRY [address] [address] * (ABNORMAL) URINALYSIS MICROSCOPIC (02/20/2024 11:44 PM CDT) RBC 0-2 0-2, None Seen /HPF 02/20/2024 11:55 PM CDT [facility] WBC 6-10(A) 0-2, 3-5, None Seen /HPF 02/20/2024 11:55 PM CDT [facility] BACTERIA Rare None Seen, Rare, Few Bacteria/H PF 02/20/2024 11:55 PM CDT [facility] EPITHELIAL CELLS Few None Seen, Few Epi/HPF 02/20/2024 11:55 PM CDT [facility] Urine URINE SPECIMEN / Unknown Non-Blood / Unknown 02/20/2024 11:44 PM CDT 02/20/2024 11:47 PM CDT Alfredo Robb MD URINE Performing Organization Address City/[facility]/ZIP Co de Phone Number [address] [address] * URINE (02/20/2024 11:44 PM CDT) Only the most recent of2 resultswithin the time period is included. ,URIN E Negative Negative 02/20/2024 11:52 PM CDT [facility] Urine URINE SPECIMEN / Unknown Non-Blood / Unknown 02/20/2024 11:44 PM CDT 02/20/2024 11:47 PM CDT Alfredo Robb MD URINE Performing Organization Address City/[facility]/ZIP Co de Phone Number [address] [address] * HCHG TUBE PR1, HCHG STYLET PR1 [...] Thorne MD ANESTHESIA PX NOTE ORDERABLES * SCAN-CARDIAC STRIP (02/14/2024 12:00 AM CDT) Narrative 02/14/2024 12:00 AM CDT Ordered by an unspecified provider. Other Clinical Staff OTHER * (ABNORMAL) GLOBAL 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 THIN PREP PAP SCREEN IMAGED [[id number]] (01/25/2024 1:25 PM CDT) Case Report Gynecologic Cytology Report ? Case: [id number] ? Authorizing Provider: ??Vane Black PA ?? Collected: ? 01/25/2024 1325 ? Ordering Location: ? [facility] ?? Received: ?01/25/2024 1409 ? Clinic ? First Screen: ?Vicky, Jenelle L ? Pathologist: ? Deandra Herrera MD ? Specimen: ?GLOBAL 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 ThinPrep Vial Screening, Cervical ? 02/07/2024 11:04 AM CDT [facility]-C ENTRAL LABORATORY INTERPRETATION/ RESULT LOW GRADE SQUAMOUS INTRAEPITHELIAL LESION (LSIL)(A) (none) 02/07/2024 11:04 AM CDT [facility]-C ENTRAL LABORATORY IMEN ADEQUACY Satisfactory for evaluation Endocervical component present 02/07/2024 11:04 AM CDT [facility] ENTRAL LABORATORY Date of LMP Unknown 02/07/2024 11:04 AM CDT [facility] EN[facility]AL LABORATORY Last Pap Date 05/30/2020 02/07/2024 11:04 AM CDT [facility] Last Pap Result NIL 11:04 AM CDT [facility]AL LAB[facility]ATORY Abnormal Pap or Fulton Bx in last 5 years No 02/07/2024 11:04 AM CDT [facility] ENTRAL LABORATORY Menstrual Status Hormonally Suppressed 02/07/2024 11:04 AM CDT [facility] ENTRID LABORATORY Fulton Bx Done Today No 02/07/2024 11:04 AM CDT [facility] EN[facility] LAB[facility] Additional Information None given 02/07/2024 11:04 AM CDT [facility] EN[facility]AL LABORATORY Comment: Cytology is screened at [facility] - [address], [place] [address] and [facility] - [address] [place] [address] [address] [facility] - [address] [place] [address] Interpreted at [facility] - [address], [place] [address] Automated Review Successful 02/07/2024 11:04 AM CDT [facility] ENTRAL LABORATORY Comment:Specimen processed s uccessfully by automated tip mender device, [employer] System, [employer] Note The pap test is a [...] and malignant lesions. 02/07/2024 11:04 AM CDT [facility] Other (Cervical) Non-Blood / Unknown 01/25/2024 1:25 PM CDT 01/25/2024 2:09 PM CDT Vane ABERNATHY PATHOLOGY/CYTOLOG Y [facility] [address] [place] [address], * ANTI HCV (12/27/2023 9:25 AM CDT) HEPATITIS C ANTIBODY Non-Reacti ve Non-React gab 12/27/2023 5:26 PM CDT [facility] Comment:Please note, per www .CDC.gov: [...] AM CDT Carson Cardona MD SEND OUTS [facility] [address] [place] [address], * LC HIV-1/O/2, 4TH GENERATION (09/03/2022 5:17 PM [facility]) HIV Scr 4th Gen Non Reactive Non Reactive 09/09/2022 10:06 PM [facility] Comment: HIV Negative HIV-1/HIV-2 antibodies and HIV-1 p24 antigen were NOT detected. There is no laboratory evidence of HIV infection. Blood BLOOD SPECIMEN / Unknown Venipuncture / Unknown 09/03/2022 5:17 PM [facility] 09/03/2022 5:23 PM [facility] Narrative [facility] - 09/09/2022 10:06 PM [facility] Performed at: ??01 - Lab[address] ??[id number] Medical Translator: Anderson Johnson MD, Phone: ??[phone] Carmela Arriola MD LABORATORY [facility] ([facility]) [address] [place] [address], from Last 3 Months or Most Recently Relevant to Health Maintenance Advance Directives * Full Code (Latest Code Status on File) Date Activated Date Inactivated Comments 02/14/2024 8:57 AM 02/14/2024 9:15 PM Question Answer Comments Code Status Discussion: Reviewed Preferences * Full Code Date Activated Date Inactivated Comments 04/14/2023 12:27 PM 04/14/2023 5:32 PM Question Answer Comments Code Status Discussion: Discussed Care Teams Cyanide Furnace Operator Relationship Specialty Start Date End Date Vane Black PA [address] [place] [address] PCP - General Physician Pulverizer 02/15/23 Carson Cardona MD [address] [facility] [address] [place] [address] Rheumatology 03/20/24
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
--- OUTSIDE RECORDS SUMMARY | 2024-04-15 01:02 | XMS_ITS | Patient Health Record ---
Author Organization [facility] Address [address] [place] [address] Care Team Providers Care Chain Offbearer Name Role Phone [facility], Mental Health Unavailable Allergies Allergen (clinical drug ingredient) Drug/Non Drug Allergy documented on EMR Reaction Allergy Type Onset Date Status golimumab Simponi Unknown Drug Allergy Active trazodone Trazodone Unknown Drug Allergy Active Reason For Referral No Information Medications Medication SIG (Take, Route, Frequency, Duration) Notes Start Date End Date Status KlonoPIN Active Lyrica Active [place] Active Problems Problem Type SNOMED Code ICD Code Onset Dates Problem Status W/U Status Risk Notes Problem Mood disorder (59345157) Mood disorder (F39) Active confirmed Problem Suicidal ideation (6096133) Suicidal ideation (R45.851) Active confirmed Encounters Encounter Location Date Provider Diagnosis [facility] [address] [place] [address] 03/19/2024 Mental Health Cooperative Suicidal ideation R45.851 and Mood disorder F39 [facility] [address] [place] [address] 03/20/2024 [facility] [address] [place] [address] 03/19/2024 Mental Health Cooperative Assessments Encounter Date Diagnosis (ICD Code) Assessment Notes Treatment Notes Treatment Clinical Notes 03/19/2024 Suicidal ideation (ICD-10 - R45.851) [facility] agrees with disposition to safety plan with friends, Marisol and Ramon ([phone] or [phone]). C denies SI, HI or AVH. C reports ability to maintain safety and feels statement was taken out of context. CC spoke with Marisol who agrees to safety plan and pick C up from [facility]. C will fly back to home [facility] in the morning to follow-up with OP provider. 03/19/2024 Mood disorder (ICD-10 - F39) Plan Of Treatment No Information Insurance Providers Payer Name Payer Address Payer Phone Subscriber Number Group Number Insured Name Patient Relationship to Insured Coverage Start Date Coverage End Date Uninsured [address] [place] [address] Lary Angulo Self - patient is the insured Medical (General) History Medical History History ICD Code Prefer not to answer Surgical History Surgery Date(Month/Year) Prefer not to disclose
--- OUTSIDE RECORDS SUMMARY | 2024-04-15 01:03 | XMS_ITS | Encounter Summary ---
Author Organization [facility] Address [address] [facility] [place] [address] Care Team Providers Care Second Crusher Name Role Phone Lucy Valverde MD Primary Care Provider Marilou Quigley MD Primary Care Provider [phone] Lola Laurent PA-C Unavailable [phone] Lucy Valverde MD Unavailable Sukhwinder Gerard MD Unavailable [phone] Sukhwinder Gerard MD Unavailable [phone] Vane Hua APRN BRICK OFF BEARER Unavailable Unavai Lucy Gonzales MD Unavailable Lucy Valverde MD Unavailable [phone] Vaen Hua APRN BRICK OFF BEARER Unavailable Unavai Vane Arroyo Primary Care Provider [phone] Encounter Details Date Type Department Care Team (Late st Contact Info) Description 10/04/2007 Abstract [facility] [address] [place] [address] Lucy Valverde MD [address] [place] [address] [place] [address] Social History Tobacco Use Types [...] documented as of this encounter Care Teams Second Crusher Relationship Specialty Start Date End Date Lucy Valverde MD [address] [facility] [place] [address] PCP - General 08/23/07 04/28/17 Marilou Quigley MD [facility] [address] [place] [address] PCP - General 04/29/17 05/11/23 Vane Black [place] [facility] [place] [address] PCP - General Family Practice 05/12/23 Lola Laurent PA-C [address] [facility] [place] [address] Assigned PCP 09/23/19 11/18/19 Lucy Valverde MD [address] [facility] [place] [address] Assigned PCP 11/19/19 11/16/20 Sukhwinder Gerard MD [address] [facility] [address] [place], [place] [address] Gastroenterology 03/08/20 Sukhwinder Gerard MD [place] GASTRO[facility]OLOGY [address] [address] [place], [place] [address] Assigned Gastroenterology Provider 06/07/20 09/06/21 Vane Hua APRN BRICK OFF BEARER Assigned PCP 11/17/20 02/27/21 Lucy Valverde MD [address] [facility] [address] [place] [address] Assigned PCP 02/28/21 07/31/22 Lucy Valverde MD [address] [facility] [address] [place] [address] Assigned PCP 10/10/22 11/13/22 Vane Hua APRN BRICK OFF BEARER Assigned PCP 11/14/22 02/19/23 documented as of this encounter
--- OUTSIDE RECORDS SUMMARY | 2024-04-15 01:03 | XMS_ITS | Referral Summary ---
Author Organization [place] Address [address] [facility] [place] [address] Care Team Providers Care Traffic Enumerator Name Role Phone Sukhwinder Gerard MD Unavailable Vane Black Primary Care Provider [phone] Allergies Active Allergy Reactions Criticality Noted Date Comments [place] Oil 04/27/2018 Other reaction(s): GI Upset [place] Oil 04/27/2018 Other reaction(s): GI Upset Crab [...] Specimen Descrip Vagina 01/08/20 4:12 PM CDT [facility] N Gonorrhea PCR Negative NEG^Negat gab 01/09/2020 1:59 PM CDT [facility] Comment: Negative for N. gonorrhoeae rRNA by plant electrician mediated amplification. A negative result by plant electrician mediated amplification does not preclude the presence of N. gonorrhoeae infection because results are dependent on proper and adequate collection, absence of inhibitors, and sufficient rRNA to be detected. Specimen from vagina (specimen) 01/08/2020 4:10 PM CDT 01/08/2020 4:11 PM CDT Keyana Ortiz PA-C LAB - MICRO GENER AL ORDERABLES [facility] [address] [place], [place] [address] [address] [place] [address] from Last 3 Months or Most Recently Relevant to Health Maintenance Advance Directives For more information, please contact: [phone] * Full Code (Latest Code Status on File) Date Activated Date Inactivated Comments 07/23/2017 10:23 PM 07/26/2017 5:52 PM * Full Code Date Activated Date Inactivated Comments 04/29/2017 10:56 PM 05/06/2017 4:51 PM Care Teams Traffic Enumerator Relationship Specialty Start Date End Date Vane Black PA [address] [place] [address] PCP - General Family Practice 05/12/23 Sukhwinder Gerard MD [address] [address] Gastroenterology 03/08/20
--- OUTSIDE RECORDS SUMMARY | 2024-04-15 01:03 | XMS_ITS | Encounter Summary ---
Author Organization [facility] Address [address] [facility] [place] [address] Care Team Providers Care Digital Media Analyst Name Role Phone Marilou Quigley MD Primary Care Provider [phone] Lola Laurent-C Unavailable [phone] Lucy Valverde MD Unavailable [phone] Sukhwinder Gerard MD Unavailable [phone] Sukhwinder Gerard MD Unavailable [phone] Vane Hua APRN AGRICULTURAL RESEARCH TECHNOLOGIST Unavailable Unavai Lucy Gonzales MD Unavailable [phone] Lucy Valverde MD Unavailable [phone] Vane Hua SUPERVISOR AUDIT CLERKS AGRICULTURAL RESEARCH TECHNOLOGIST Unavailable Unavai Vane Arroyo Primary Care Provider [phone] Reason for Visit * Reason Onset Date Comments Mental Health Problem 04/29/2017 Encounter Details Date Type Department Care Team ([facility] st Contact Info) Description 04/29/2017 Telephone [facility] Behavioral Health Intake [address] [place] [id number] Generic, Behavioral Intake, Mental Health Problem Social [...] Saxena - 04/29/2017 5:53 PM CDT S: [facility] ED called to place a 17 yr old female for inpatient mental health treatment. B: Pt was BIB parents to the [facility] ED due to suicidal ideation with a [...] documented as of this encounter Care Teams Digital Media Analyst Relationship Specialty Start Date End Date Marilou Quigley MD [facility] [address] [place] [address] PCP - General 04/29/17 05/11/23 Vane Black PA [address] [place] [address] PCP - General Family Practice 05/12/23 Lola Laurent PA-C [address] [place] [address] Assigned PCP 09/23/19 11/18/19 Lucy Valverde MD [address] [place] [address] Assigned PCP 11/19/19 11/16/20 Sukhwinder Gerard MD [address] [place] [address] Gastroenterology 03/08/20 Sukhwinder Gerard MD [place] GASTROENTEROLOGY [address] [address] [place] [address] Assigned Gastroenterology Provider 06/07/20 09/06/21 Vane Hua APRN AGRICULTURAL RESEARCH TECHNOLOGIST Assigned PCP 11/17/20 02/27/21 Lucy Valverde MD [address] [place] [address] Assigned PCP 02/28/21 07/31/22 Lucy Valverde MD [address] [place] [address] Assigned PCP 10/10/22 11/13/22 Vane Hua APRN AGRICULTURAL RESEARCH TECHNOLOGIST Assigned PCP 11/14/22 02/19/23 documented as of this encounter
== END 2024-04-15 01:08 | disposition home or self-care (01) ==
LOC: ED 01:00
PROVIDERS: Emergency Provider Family Medicine; PCP Student in an Organized Health Care Education/Training Program
DX: S06.0X0A Concussion without loss of consciousness, initial encounter (principal); W20.8XXA Other cause of strike by thrown, projected or falling object, initial encounter
CPT/HCPCS: 99283

== ENCOUNTER 2024-08-18 22:49 | Outpatient (CLI) | payer MEDICAID, SELFPAY | END 2024-08-18 22:50 | disposition home or self-care (01) | LOC: AMB 08-20 06:55 | PROVIDERS: PCP Student in an Organized Health Care Education/Training Program; Visit Provider Emergency Medicine | DX: Z53.29 Procedure and treatment not carried out because of patient's decision for other reasons (principal) | CPT/HCPCS: A0998 ==

== ENCOUNTER 2024-08-19 08:14 | Emergency (ER) | payer MEDICAID, SELFPAY ==
--- OUTSIDE RECORDS SUMMARY | 2024-08-19 08:16 | XMS_ITS | Continuity of Care Document ---
Author Name Nw[facility]IN User [email or web address] Address Unknown Organization Unknown Address Unknown Procedures FILTER APPLIED:Only known Procedures with Onset Date within the last 5 years Procedure Date Procedure Provider Additiona l Information Status URINE CULTURE (19892) Co mpleted ,SERUM (28285) Completed COMP METABOLIC PANEL (30512) Completed CBC AND DIFFERENTIAL (10851) Completed LIPASE (65847) Completed HEPATIC FUNCTION PANEL (91398) Completed UA W/ SEDIMENT EXAM REFLEXED PER CRITERIA (78154) Completed HEPATIC FUNCTION PANEL (70234) Completed LIPASE (12731) Completed PROTIME-INR (24046) Comp leted CBC AND DIFFERENTIAL (89324) Completed BASIC METABOLIC PANEL (18016) Completed URINALYSIS MICROSCOPIC (53155) Completed UA W/ SEDIMENT EXAM REFLEXED PER CRITERIA (81351) Completed URINE POCT (05576) Completed URINALYSIS AUTO W/O SCOPE (87248) Completed MICROSCOPIC EXAM OF URINE (33335) Completed URINE CULTURE/COLONY COUNT (44204) Completed EMERGENCY DEPT VISIT LOW MDM (22593) Completed EMERGENCY DEPT VISIT MOD MDM (21860) Completed THER/PROPH/DIAG INJ IV PUSH (81995) Completed TX/PRO/DX INJ NEW DRUG ADDON (65501) Completed Encounters FILTER APPLIED:Only known Encounters with Admission Date within the last 5 years Encounter Location Admission Discharge Billing Code Program Administrator Attender Emergency [facility] maurizio Rhiannon Emergency [facility]iff[facility] Emergency [id number] 6570.89 TIFFANIE MILLS Emergency [id number] 6570.449 ABBY GONZALEZORALNDO Emergency [id number] 6570.449 JONNIE XAVIER Emergency [facility] Emergency [facility] Emergency [facility] MAK RHODES Emergency [facility] Outpatient [facility] Recurring Patient [facility] BUNNY BRICE Recurring Patient [facility] BUNNY BRICE
--- OUTSIDE RECORDS SUMMARY | 2024-08-19 08:16 | XMS_ITS | Clinical Summary ---
Author Organization [facility] Address [address] [place] [id number] Care Team Providers Care Pharmacy Technician Assistant Name Role Phone Vane Fish APRN, CNP Primary Care [facility] [place] Unavailable Unavailable Allergies No known active allergies Medications TOM 3-0.03 mg oral tablet TK 1 T PO QD. TK ACTIVE TS ONLY FOR 12 WEEKS THEN TK 1 WEEK OF INACTIVE TS 11/27/2019 Active Drospirenone-Et hinyl Estradiol 3-0.03 mg oral tablet Take 1 pill daily of active pills for 4 packs (12 weeks) Prior to taking 1 week of inactive pills. 07/18/2018 Active ondansetron (ZOFRAN ODT) 4 mg oral ODT Dissolve 1 tablet (4 mg) in mouth every 8 (eight) hours as needed for nausea. 15 tablet 03/24/2020 Active Active Problems Problem Noted Date Diagnosed Date Other symptoms and signs inv olving the musculoskeletal system 03/28/2020 Low back pain 03/28/2020 Social History Tobacco Use Types Packs/Day Years Used Date Smoking Tobacco: Never Smokeless Tobacco: Never Alcohol Use Standard Drinks/Week Comments Yes 0 (1 standard drink = 0.6 oz pur e alcohol) rarely Comments Unknown Sex and Gender Information Value Date Recorded Sex Assigned at Not on file Legal Sex Female 8:57 AM CDT Gender Identity Not on file Sexual Orientation Not on file Last Filed Vital Signs Vital Sign Reading Time Taken Comments Blood Pressure 120/74 03/24/2020 10:45 PM CDT Pulse 90 03/24/2020 10:45 PM CDT Temperature 36.7 C (98.1 F) 03/24/2020 10:45 PM CDT Respiratory Rate 18 03/24/2020 10:45 PM CDT Oxygen Saturation 98% 03/24/2020 10:45 PM CDT Inhaled Oxygen Concentration - - Weight - - Height 175.3 cm (5' 9) 10/20/2019 8:33 PM GENERAL II [employer] Body Mass Index - - Plan of Treatment Health Maintenance Due Date Last Done Comments Hepatitis C Screening 1999 Pap Smear 1999 Anxiety Screening (BENSON-2) 2000 Depression Assessment (PHQ-2) 2000 Adult Tetanus Booster 05/21/2020 05/21/2010 Chlamydia/Gonorrhea Screening 01/07/2021 01/08/2020, 01/08/2020, 10/19/2019, Additional history exists COVID-19 Vaccine ( - 2023- season) 2024 Influenza Vaccine (#1) 2024 5, 06/12/2013, 09/29/2011 RSV Vaccines (1 - 1-dose 75+ series) 2074 Pneumococcal <65 Aged Out 04/25/2001, 10/25/2000 N o longer eligible based on patient's age to complete this topic HPV Vaccine Completed 12/14/2014, 06/17, 04/20/2014 Care Teams Pharmacy Technician Assistant Relationship Specialty Start Date End Date Vane Fish APRN, SURGICAL NURSE PRACTITIONER PCP - General Nurse Practitioner 03/24/20 [place] [facility] PCP - Primary Care Clinic Family Medicine 03/25/20
--- OUTSIDE RECORDS SUMMARY | 2024-08-19 08:16 | XMS_ITS | Clinical Summary ---
Author Organization [employer] [facility] Address [place], [place] [address] Care Team Providers Care Hop Sorter Name Role Phone Sofia Vane ABERNATHY Primary Care Provider [phone] Carson Cardona MD Unavailable [phone] Allergies Active Allergy Reactions Criticality Noted Date Comments [place] GI Upset 08/25/2018 Patient reports immediate stomach pain. [place] Oil GI Upset 04/27/2018 [place] GI Upset 04/27/2018 Patient reports it feels like a rock when I eat it, for 48 hours and I cannot digest it. Crab GI Upset 04/27/2018 Lactose GI Upset 08/25/2018 Patient reports it is severe. [place] Oil Other - Describe In Comment Field 07/11/2018 Golimumab Anaphylaxis High 01/17/2024 Hot, flushed, nauseated, disoriented, tingling in mouth and throat, slurred speech Trazodone Other - Describe In Comment Field 09/17/2023 Suicidal thoughts Medications levonorgestrel intrauterine device (Mirena) 20 mcg/24 hours (7 yrs) 52 mg IUD Inject 1 Device intrauterine. 06/28/20 21 Active albuterol HFA (PRO-AIR; VENTOLIN; PROVENTIL) 90 mcg/actuation inhalerIndications :Wheezing Inhale 2 Puffs by mouth every 4 hours if needed for Shortness Of Breath. 2 Each 1 02/24/20 23 Active ondansetron (ZOFRAN ODT) 4 mg disintegrating tabletIndications: Nausea Place 1 Tablet (4 mg) on the tongue every 8 hours if needed for Nausea/Vomiting . 15 Tablet 11/03/19 24 Active suvorexant (BELSOMRA) 10 mg tabletIndications: Concussion without loss of consciousness, subsequent encounter,Work related injury,Insomnia due to medical condition Take 10 mg by mouth at bedtime. 90 Tablet 02/15/20 24 Active clonazePAM (KLONOPIN) 0.5 mg tabletIndications: Chronic post-traumatic stress disorder (PTSD) Take 1 Tablet (0.5 mg) by mouth once daily if needed for Anxiety. 14 Tablet 03/01/20 24 Active pregabalin (LYRICA) 25 mg capsuleIndications :Generalized anxiety disorder with panic attacks Take 1 Capsule (25 mg) by mouth three times daily. 42 Capsule 03/01/20 Active Additional Information Patient taking differently: 75 mgOralBID, Reported on 05/10/2024 lithium carbonate (LITHONATE) 300 mg capsuleIndications :Bipolar 1 disorder, mixed, moderate (HC) Take 1 Capsule (300 mg) by mouth at bedtime. Take in addition to a 600 mg capsule. 14 Capsule 02/23/20 Active lithium carbonate 600 mg capsuleIndications :Bipolar 1 disorder, mixed, moderate (HC) Take one capsule by mouth at bedtime. 14 Capsule 02/23/20 Active metFORMIN (GLUCOPHAGE XR) 750 mg Extended-Release tablet Take 750 mg by mouth once daily. Active adalimumab (Humira,CF, Pen) 40 mg/0.4 mL pnktIndications:An kylosing spondylitis, unspecified site of spine (HC) Inject 40 mg subcutaneous every 2 weeks. 6 Each 1 05/10/20 Active ondansetron (ZOFRAN ODT) 4 mg disintegrating tabletIndications: Migraine without aura and with status migrainosus, not intractable,Nausea and vomiting, unspecified vomiting type Place 1 Tablet (4 mg) on the tongue every 8 hours if needed for Nausea/Vomiting . 30 Tablet 05/12/20 Active cetirizine (ZYRTEC) 10 mg tablet Take 10 mg by mouth once daily. 04/26/20 Active EPINEPHrine (EPIPEN) 0.3 mg/0.3 mL auto-injector Inject 0.3 mg intramuscular. 04/26/20 Active atogepant (QULIPTA) 60 mg tabletIndications: Concussion without loss of consciousness, subsequent encounter Take 1 Tablet (60 mg) by mouth once daily. 30 Tablet 3 05/16/20 24 Active rizatriptan (MAXALT CLAIMS AGENT RIGHT OF WAY) 5 mg disintegrating tabletIndications: Concussion without loss of consciousness, subsequent encounter,Chronic post-traumatic headache, not intractable,Work related injury Place 1 Tablet (5 mg) on the tongue 2 times daily if needed for Migraine. Give at minimum 2hrs apart. Max Dose: 30mg per 24hrs. 54 Tablet 05/16/20 24 Active LORazepam (ATIVAN) 0.5 mg tabIndications:Cla ustrophobia Take 1 Tablet (0.5 mg) by mouth one time for 1 dose. 1 Tablet 05/22/20 24 Active norethindrone-ethi nyl estradiol (LOESTRIN 09/04; JUNEL 09/04) 1-20 mg-mcg tabletIndications: Endometriosis determined by laparoscopy TAKE 1 TABLET BY MOUTH EVERY DAY 84 Tablet 3 05/28/20 24 Active fremanezumab-vfrm 225 mg/1.5 mL syrgIndications:Co ncussion without loss of consciousness, subsequent encounter,Chronic post-traumatic headache, not intractable,Intrac table migraine with aura without status migrainosus Inject 225 mg subcutaneous every 4 weeks. 1 Each 3 06/05/20 24 Active fluticasone (50 mcg per actuation) nasal solution (FLONASE) Inhale 1 [place] into affected nostril(s) once daily. Active tiZANidine (ZANAFLEX) 4 mg tabletIndications: Rotator cuff tendonitis, right,Rhomboid muscle pain,Trapezius strain, right, initial encounter Take 1 tablet by mouth every bedtime for muscle tightness 30 Tablet 08/10/20 24 Active tiZANidine (ZANAFLEX) 2 mg tabletIndications: Concussion without loss of consciousness, subsequent encounter,Chronic post-traumatic headache, not intractable,Whipla sh, subsequent encounter,Work related injury Take 1 Tablet (2 mg) by mouth at bedtime. 90 Tablet 05/16/20 24 024 Discontin ued(*Med complete/ Regimen complete/ Level of care change) tiZANidine (ZANAFLEX) 4 mg tabletIndications: Rotator cuff tendonitis, right,Rhomboid muscle pain,Trapezius strain, right, initial encounter Take 1 tablet by mouth every bedtime for muscle tightness 30 Tablet 07/17/20 24 024 Discontin ued(Reord er (E-cancel not sent)) Active Problems Problem Noted Date Diagnosed Date Regular astigmatism, bilateral 06/21/2024 Myopia, bilateral 06/21/2024 Concussion with no loss of consciousness 024 Intra-abdominal adhesions 02/14/2024 Chronic pelvic pain in female 02/14/2024 Endometriosis determined by laparoscopy 02/14/20 LGSIL of cervix of undetermined significance Overview (02/07/2024): 01/2024 LSIL Plan: HPV based testing in 1 year Asthma, unspecified asthma s everity, unspecified whether complicated, unspecified whether persistent 01/19/2024 Ankylosing spondylitis of thoracolumbar region 0 12/28/2023 Bipolar 1 disorder, mixed, moderate 10/25/2023 Other specified hypothyroidism 04/21/2022 Anxiety 03/18/2022 Head injury 03/18/2022 PCOS (polycystic ovarian syndrome) 03/12/2022 Dizziness 02/17/2022 Overview (03/18/2022): Last Assessment & Plan: So far, her [...] status migrainosus, not intractable 06/03/2021 Dysmenorrhea 10/25/2020 Overview (03/18/2022): Added automatically from request for surgery [id number] Anorexia nervosa, restrictin g type, in partial remission, moderate 06/24/2020 Insomnia 06/24/2020 Mixed obsessional thoughts and acts 06/24/2020 Endometriosis 05/28/2020 Overview (03/18/2022): 10/18/20: Patient presents with greater than 5-year [...] were signed. Menorrhagia with irregular cycle 05/28/2020 Overview (03/18/2022): 10/18/20: Patient with significant history of menorrhagia. [...] of life for patient. Uterine fibroid 05/28/2020 Overview (03/18/2022): 10/09/20: Pelvic US demonstrating 1.4 x 1.4 x 1.7 cm posterior myometrial fibroid is noted 10/18/20: Reviewed at visit that uterine leiomyomata are definitely a known cause for heavier menstrual bleeding. Would be difficult time is to do pelvic pain as a solitary source. Other symptoms and signs inv olving the musculoskeletal system 03/28/2020 Chronic post-traumatic stress disorder (PTSD) Overview (03/18/2022): Last Assessment & Plan: I think some of her symptoms are due to stress. Eating disorder 01/09/2020 Borderline personality disorder 08/23/2018 Mood disorder 08/23/2018 Resolved Problems Problem Noted Date Diagnosed Date Resolved Date Inability to cope 01/09/2020 06/12/2022 Encounters Date Type Department Care Team Description 08/14/2024 Telephone [facility] [address] [facility] [address] [facility] [address] [place] [address] Carson Cardona MD Prior Authorization (adalimumab (Humira,CF, Pen) 40 mg/0.4 mL pnkt Approved 08/14/24-02/10/25) 08/10/2024 3:30 PM LICENSE CLERK Office Visit [facility] [address] [place], [place] [id number] Karlo Ni MD Occ Med (right shoulder- seeing small improvements ) 08/10/2024 Travel 07/25/2024 11:20 AM LICENSE CLERK Telemedicine [facility] [address] [place] [address] Tricia Ramírez PA Sinus Problem 07/19/2024 5:50 PM LICENSE CLERK Ancillary Procedure [facility] [address] [place] [address] 07/19/2024 4:45 PM LICENSE CLERK Office Visit [facility] [address] [place] [phone] Chris Estrada MD Hip Injury (60 minutes ago, left sided) 07/19/2024 Travel 07/18/2024 3:15 PM LICENSE CLERK - 07/18/2024 11:59 PM LICENSE CLERK Hospital Encounter [facility] [address] [facility] [address] [place] [address] Carson Cardona MD Lee, Molly E, PT 07/17/2024 3:05 PM LICENSE CLERK Office Visit [facility] [address] [place] [address] Karlo Ni MD Shoulder Pain/problem (would like to return to work- pain is not better, but needs to get back to work ) 07/17/2024 Travel 07/12/2024 5:00 PM LICENSE CLERK - 07/12/2024 11:59 PM LICENSE CLERK Hospital Encounter [facility] [address] [facility] [address] [place] [address] Carsno Cardona MD Lee, Molly E, PT 07/12/2024 Travel 06/23/2024 12:00 PM LICENSE CLERK Office Visit [facility] [address] [place] [address] Carol Watts DO Follow Up (Urgent care 06/18/24 Shoulder injury ) 06/23/2024 Travel 06/21/2024 12:40 PM LICENSE CLERK Office Visit [facility] [address] [place] [address] Carson Cardona MD Follow Up (Ankylosing spondylitis, unspecified site of spine) 06/20/2024 4:15 PM LICENSE CLERK Office Visit [facility] [address] [place] [address] Dwight Murphy A, OD Eye Exam (CEE/ocular health exam) 06/20/2024 Travel 06/18/2024 4:50 PM LICENSE CLERK Office Visit [facility] [address] [place] [address] Sigrid Loja PA Shoulder Pain/problem (Right, x1w) 06/18/2024 Travel 06/09/2024 Telephone [facility] [address] [facility] [address] [place] [address] Asya Owen MD 06/05/2024 2:40 PM CDT Office Visit [facility] [address] [place] [address] Tiana Donato PA Concerns (x12 weeks flu symptoms, rash cheeks and nose ) 06/05/2024 Travel 05/31/2024 Nurse Triage [facility] [address] [place] [address] Vane Black PA Rash 05/27/2024 9:30 AM CDT Ancillary Procedure [facility] [address] [place] [address] 05/27/2024 Nurse Triage [facility] [address] [place] [address] Vane Black PA Head Injury 05/27/2024 Travel 05/25/2024 Refill [facility] [address] [facility] [address] [place] [address] Fareed Eddy MD Refill Request (Norethindrone-ethi nyl Estradiol) 05/22/2024 Travel 05/22/2024 Telephone [facility] [address] [place] [address] Vane Black PA Need Meds 05/22/2024 Telephone [facility] [address] [facility] [address] [place] [address] Asya Owen MD Prior Authorization (atogepant (QULIPTA) 60 mg tablet DENIED) 05/22/2024 Telephone [facility] [address] [facility] [address] [place] [address] Asya Owen MD Concerns (Ongoing headache and weakness) 05/21/2024 4:37 PM CDT - 05/21/2024 6:15 PM CDT Emergency [facility] [address] [place] [address] Malu Brown PA Intractable chronic migraine without aura and with status migrainosus (Primary Dx); Nausea Discharge Disposition: Home Self Care from Last 3 Months Immunizations Name Administration Dates Next Due COVID-19 VACCINE SPIKEVAX (M ODERNA 50MCG/0.5ML) 12YO+ PFS 08/23/2023 COVID-19 vaccine (Moderna 100mcg/0.5mL) PF, MDV 08/02/2021,09/27/2020 COVID-19 vaccine (Pfizer-Bio NTech 30mcg/0.3mL) 12YO+ BIVALENT PF, MDV 06/26/2022 DTaP 04/29/2004, 2,08/25/2001,10/25,1999,1999,1999 HIB HbOC (HibTITER) 1999,1999 HIB PRP-T (ActHIB,Hiberix) 04/26/2000,,1999,07/01 Hepatitis A (Peds) 12/14/2014,04/20/2014 Hepatitis B (Adult) 04/26/2000,1999 Hepatitis B (Peds) 04/26/2000, 0,1999,08/25 Hepatitis B, Unspecified 04/26/2000,1999 Hib Conjugate, Unspecified 1999 Human Papilloma Virus Vaccine 12/14/2014, 014,04/20/2014 INFLUENZA, IIV3 PF (AGE >= 6 MO) 05/08/2024 Inactivated Polio Vaccine 04/29/2004,05/2002,10/25/2000,08/25,1999 Influenza Virus, Unspecified 08/25/2018, 05/24/2012,10/21/2009,08/23,07/25/2007 Influenza, IIV3 (Age 6-35 mos) 06/04/2015,2012,09/29/2011 Influenza, [...] Smoking Tobacco: Never Cigarettes Qu it: 11/2018 Passive Smoke Exposure: Past Smokeless Tobacco: Never Tobacco Cessation:Counseling Given: Not Answered Alcohol Use Standard Drinks/Week Comments Not Currently 0 (1 standard drink = 0.6 oz pur e alcohol) [facility] Utilities Answer Date Recorded Do you have trouble paying f or utilities (for example, heat, electricity, water, phone)? Yes 06/18/2024 PHQ-2 Answer Date Recorded PHQ-2 TOTAL SCORE 4 02/21/2024 Social Connections Answer Date Recorded Do you often feel lonely or isolated from those around you? 4 06/18/2024 Financial Resource Strain Answer Date R ecorded Difficulty of Paying Living Expenses 3 06/18/2024 Difficulty of Paying Living Expenses Not on file 06/18/2024 Food Insecurity Answer Date Recorded Do you worry your food will run out before you are able to buy more? 1 06/18/2024 Transportation Needs Answer Date Record ed Does lack of transportation keep you from medica l appointments? 1 06/18/2024 Does lack of transportation keep you from work, meetings or getting things that you need? 1 06/18/2024 Housing Stability Answer Date Recorded What is your housing situation today? 2 06/18/2024 Interpersonal Safety Answer Date Record ed Are you being hit, kicked, p ushed or yelled at (see row info)? No 05/21/2024 Interpersonal Safety Abuse 12 - 18 Not on file 05/21/2024 Interpersonal Safety Ambulatory Vulnerability No t on file 05/21/2024 Comments No Sex and Gender Information Value Date Recorded Sex Assigned at Female 09/15/2023 10:11 AM LICENSE CLERK Legal Sex Female 4:18 PM CDT Gender Identity Female 09/15/2023 10:11 AM LICENSE CLERK Sexual Orientation Not on file Occupation Industry Job Start Date Job End Date unemployeed Not on file Not on file Not on file [employer] Not on file Not on file Not on file Obstetrics History Para Term AB IAB SAB Ectopic Multiple Livin g Live Births 0 0 0 0 0 0 0 0 0 0 0 Last Filed Vital Signs Vital Sign Reading Time Taken Comments Blood Pressure 120/82 08/10/2024 3:32 PM LICENSE CLERK Pulse 67 08/10/2024 3:32 PM LICENSE CLERK Temperature 36.1 C (97 F) 07/19/2024 5:17 PM LICENSE CLERK Respiratory Rate 14 07/19/2024 5:17 PM LICENSE CLERK Oxygen Saturation 97% 08/10/2024 3:32 PM LICENSE CLERK Inhaled Oxygen Concentration - - Weight 93 kg (205 lb) 06/18/2024 5:02 PM LICENSE CLERK Height 170.2 cm (5' 7) 06/21/2024 12:51 PM LICENSE CLERK Body Mass Index 32.11 05/21/2024 3:45 PM CDT Plan of Treatment Upcoming Encounters Date Type Department Care Team (Late st Contact Info) Description 08/21/2024 10:00 AM LICENSE CLERK Appointment [facility] [address] [place] [address] [address] [place] [address] Lisette Corona, PT [address] [address] 08/22/2024 2:00 PM LICENSE CLERK Office Visit [facility] [address] [place] [address] Asya Owen MD [address] [place] [address] 08/28/2024 2:30 PM LICENSE CLERK Appointment [facility] [address] [place] [address] Lisette Corona, PT [address] [address] 09/04/2024 3:15 PM LICENSE CLERK Appointment [facility] [address] [place] [address] Lisette Corona, PT [address] [address] 09/07/2024 2:40 PM LICENSE CLERK Office Visit [facility] [address] [place] [address] Karol Ni MD [address] [place] [address] 09/11/2024 3:15 PM LICENSE CLERK Appointment [facility] [address] [place] [address] Lisette Corona, PT [address] [address] Health Maintenance Due Date Last Done Comments COVID-19 vaccine series (2023- season) 2024 05/08/2024, 08/23/2023, 06/26/2022, Additional history exists Pap test for age 21-65 01/24/2025 4, 05/30/2020 (Verified in Care Everywhere or Patient Record) Depression screening for age 12+ 02/23/2025 02/24/2024, 02/24/2024, 02/23/2024, Additional history exists BMI (ht and wt on same day) for age 18+ 05/10/2025 05/10/2024, 04/14/2024, 02/08/2024, Additional history exists Tetanus booster 01/24/2034 01/25/2024, 05/21/2010 Pneumococcal series for age 6-49 Aged Out 04/25/2001, 10/25/2000 No longer eligibl e based on patient's age to complete this topic HPV series for age 9-26 Completed 12/15/19 15, 07/06/2014, 04/20/2014 HIV for age 15-65 Completed 09/03/2022 Hepatitis C screening for age 18-79 Completed 12/27/2023 Tdap Completed 01/25/2024, 05/21/2010 Influenza for age 9-49 Completed 4, 05/17/2023, 06/26/2022, Additional history exists Procedures Procedure Name Priority Date/Time Associated Diagnosis Comments XR HIP 1 VIEW W PELVIS RIGHT STAT 07/19/2024 5:54 PM LICENSE CLERK Right leg pain ANTINUCLEAR ANTIBODY BY IFA Routine 06/21/2024 1:33 PM LICENSE CLERK Pain in joint of right shoulder SEDIMENTATION RATE Routine 06/21/2024 1: 33 PM LICENSE CLERK Pain in joint of right shoulder C-REACTIVE PROTEIN Routine 06/21/2024 1: 33 PM LICENSE CLERK Pain in joint of right shoulder CBC WITH AUTO DIFFERENTIAL Routine 06/05/2024 3:14 PM CDT Fatigue, unspecified type Rash of face HETEROPHILE Routine 06/05/2024 3:14 PM CDT Fatigue, unspecified type Rash of face CBC WITH AUTO DIFFERENTIAL Routine 06/05/2024 3:14 PM CDT Fatigue, unspecified type Rash of face COMP METABOLIC PANEL Routine 06/05/2024 3:14 PM CDT Fatigue, unspecified type Rash of face Ankylosing spondylitis of thoracolumbar region (HC) HCHG RAD MRI HEAD BRAIN WO LIMITED Routine 05/27/2024 10:13 AM CDT Concussion without loss of consciousness, subsequent encounter Chronic post-traumatic headache, not intractable Intractable migraine with aura without status migrainosus [employer] THIN PREP PAP SCREEN IMAGED Routine 01/25/2024 1:25 PM CDT Screening for malignant neoplasm of cervix ANTI HCV Routine 12/27/2023 9:25 AM CDT Spondyloarthropathy of sacroiliac joint LC HIV-1/O/2, 4TH GENERATION Routine 09/03/2022 5:17 PM LICENSE CLERK Febrile illness Dysuria from Last 3 Months or Most Recently Relevant to Health Maintenance Results * XR HIP 1 VIEW W PELVIS RIGHT (07/19/2024 5:54 PM LICENSE CLERK) Anatomical Region Laterality Modality HIPS, HIPR, Pelvis Computed Radi ography 07/19/2024 5:54 PM LICENSE CLERK Impressions 07/19/2024 6:11 PM LICENSE CLERK Normal joint spaces and alignment. No fracture. Narrative 07/19/2024 6:11 PM LICENSE CLERK For Patients: As a result of the Cures Act, medical imaging exams and procedure reports are released immediately into your electronic medical record. You may view this report before your referring provider. If you have questions, please contact your health care provider. EXAM: XR HIP 1 VIEW W PELVIS RIGHT [facility]: 07[facility]19[facility]2024 INDICATION: Right Leg Pain COMPARISON: None. Procedure Note Maggy Falcon MD - 07/19/2024 For Patients: As a result of the Cures Act, medical imagingexams and procedure reports are released immediately into your electronicmedical record. You may view this report before your referring provider.If you have questions, please contact your health care provider. EXAM: XR HIP 1 VIEW W PELVIS RIGHT LOCATION: [facility] DATE: 07/19/2024 INDICATION: Right Leg Pain COMPARISON: None. IMPRESSION: Normal joint spaces and alignment. No fracture. Chris Estrada MD GENERAL IMAGING Final Result * SEDIMENTATION RATE (06/21/2024 1:33 PM LICENSE CLERK) Pathologist [facility] SED RATE BY MODIFIED SARAIREN 14 < OR = 20 mm/h [facility] Blood BLOOD SPECIMEN / Unknown 06/21/2024 1:33 PM LICENSE CLERK 06/21/2024 1:34 PM LICENSE CLERK Carson Cardona MD HEMATOLOGY Final Resul t [place] [address] [address], [facility] [address] [place] [phone] * ANTINUCLEAR ANTIBODY BY IFA (06/21/2024 1:33 PM LICENSE CLERK) Pathologist [facility] FELA SCREEN, IFA NEGATIVE NEGATIVE [facility] Comment: FELA IFA is a first line screen for detecting the presence of up to approximately 150 autoantibodies in various autoimmune diseases. A negative FELA IFA result suggests an FELA-associated autoimmune disease is not present at this time, but is not definitive. If there is high clinical suspicion for Sjogren's syndrome, testing for anti-SS-A/Ro antibody should be considered. Anti-Mily-1 antibody should be considered for clinically suspected inflammatory myopathies. AC-0: Negative International Consensus on FELA Patterns (https://doi.org/10.1515/zgum-8835-1836) For additional information, please refer to http://education.Accent.uma information technology/faq/FRF039 (This link is being provided for informational/ educational purposes only.) Blood BLOOD SPECIMEN / Unknown 06/21/2024 1:33 PM LICENSE CLERK 06/21/2024 1:34 PM LICENSE CLERK Carson Cardona MD CHEMISTRY Final Resul t Performing Organization Address City/[facility]/ZIP Co de Phone Number [place] [address] [phone], [facility] [employer] [facility] [address] * (ABNORMAL) C-REACTIVE PROTEIN (06/21/2024 1:33 PM LICENSE CLERK) Pathologist [facility] C-REACTIVE PROTEIN 8.1(H) <8.0 mg/L [facility] Blood BLOOD SPECIMEN / Unknown 06/21/2024 1:33 PM LICENSE CLERK 06/21/2024 1:34 PM LICENSE CLERK Carson Cardona MD CHEMISTRY Final Resul t Performing Organization Address [facility] Co de Phone Number [place] [address] [phone], [employer] [facility] [address] * (ABNORMAL) CBC WITH AUTO DIFFERENTIAL (06/05/2024 3:14 PM CDT) WHITE BLOOD CELL COUNT 10.2 3.8 - 10.8 Thousand/ uL 06/06/2024 9:37 AM CDT [facility] RED BLOOD CELL COUNT 4.54 3.80 - 5.10 Million/u L 06/06/2024 9:37 AM CDT [facility] HEMOGLOBIN 14.1 11.7 - 15.5 g/dL 06/06/2024 9:37 AM CDT [facility] HEMATOCRIT 43.0 35.0 - 45.0 % 06/06/2024 9:37 AM CDT [facility] MCV 94.7 80.0 - 100.0 fL 06/06/2024 9:37 AM CDT [facility] MCH 31.1 27.0 - 33.0 pg 06/06/2024 9:37 AM CDT [facility] MCHC 32.8 32.0 - 36.0 g/dL 06/06/2024 9:37 AM CDT [facility] Comment: For adults, a slight decrease in the calculated MCHC value (in the range of 30 to 32 g/dL) is most likely not clinically significant; however, it should be interpreted with caution in correlation with other red cell parameters and the patient's clinical condition. RDW 11.7 11.0 - 15.0 % 06/06/2024 9:37 AM CDT [facility] PLATELET COUNT 326 140 - 400 Thousand/ uL 06/06/2024 9:37 AM CDT [facility] MPV 9.4 7.5 - 12.5 fL 06/06/2024 9:37 AM CDT [facility] NEUTROPHILS 41.8 % 06/06/2024 9:37 AM CDT [facility] LYMPHOCYTES 47.4 % 06/06/2024 9:37 AM CDT [facility] MONOCYTES 7.2 % 06/06/2024 9:37 AM CDT [facility] EOSINOPHILS 2.8 % 06/06/2024 9:37 AM CDT [facility] BASOPHILS 0.8 % 06/06/2024 9:37 AM CDT [facility] ABSOLUTE NEUTROPHILS 4264 1500 - 7800 cells/uL 06/06/2024 9:37 AM CDT [facility] ABSOLUTE LYMPHOCYTES 4835(H) 850 - 3900 cells/uL 06/06/2024 9:37 AM CDT [facility] ABSOLUTE MONOCYTES 734 200 - 950 cells/uL 06/06/2024 9:37 AM CDT [facility] ABSOLUTE EOSINOPHILS 286 15 - 500 cells/uL 06/06/2024 9:37 AM CDT [facility] ABSOLUTE BASOPHILS 82 0 - 200 cells/uL 06/06/2024 9:37 AM CDT [facility] Blood BLOOD SPECIMEN / Unknown Non-Lab Venipuncture / Unknown 06/05/2024 3:14 PM CDT 06/05/2024 3:15 PM CDT Tiana ABERNATHY HEMATOLOGY Final Result Performing Organization Address City/[facility] Hospital/ZIP Co de Phone Number [facility] [address] [address], * HETEROPHILE (06/05/2024 3:14 PM CDT) HETEROPHILE, MONO SCREEN NEGATIVE NEGATIVE 06/06/2024 12:35 PM CDT [facility] Blood BLOOD SPECIMEN / Unknown Non-Lab Venipuncture / Unknown 06/05/2024 3:14 PM CDT 06/05/2024 3:15 PM CDT Tiana ABERNATHY HEMATOLOGY Final Result Performing Organization Address [facility] de Phone Number [facility] [address] [address], [place] [phone] * (ABNORMAL) COMP METABOLIC PANEL (06/05/2024 3:14 PM CDT) Pathologist [facility] SODIUM 141 135 - 146 mmol/L 06/06/2024 2:37 PM CDT [facility] POTASSIUM 4.0 3.5 - 5.3 mmol/L 06/06/2024 2:37 PM CDT [facility] CHLORIDE 112(H) 98 - 110 mmol/L 06/06/2024 2:37 PM CDT [facility] CARBON DIOXIDE 22 20 - 32 mmol/L 06/06/2024 2:37 PM CDT [facility] GLUCOSE 92 65 - 99 mg/dL 06/06/2024 2:37 PM CDT [facility] Comment: Fasting reference interval CALCIUM 9.1 8.6 - 10.2 mg/dL 06/06/2024 2:37 PM CDT [facility] CREATININE 0.63 0.50 - 0.96 mg/dL 06/06/2024 2:37 PM CDT [facility] BUN/CREATININE RATIO SEE NOTE: 6 - 22 (calc) 06/06/2024 2:37 PM CDT [facility] Comment: Not Reported: BUN and Creatinine are within reference range. EGFR 126 > OR = 60 mL/min/1. 73m2 06/06/2024 2:37 PM CDT [facility] ALBUMIN 3.9 3.6 - 5.1 g/dL 06/06/2024 2:37 PM CDT [facility] PROTEIN, TOTAL 6.5 6.1 - 8.1 g/dL 06/06/2024 2:37 PM CDT [facility] BILIRUBIN, TOTAL 0.3 0.2 - 1.2 mg/dL 06/06/2024 2:37 PM CDT [facility] ALKALINE PHOSPHATASE 38 31 - 125 U/L 06/06/2024 2:37 PM CDT [facility] ALT 8 6 - 29 U/L 06/06/2024 2:37 PM CDT [facility] AST 12 10 - 30 U/L 06/06/2024 2:37 PM CDT [facility] UREA NITROGEN (BUN) 9 7 - 25 mg/dL 06/06/2024 2:37 PM CDT [facility] GLOBULIN 2.6 1.9 - 3.7 g/dL (calc) 06/06/2024 2:37 PM CDT [facility] ALBUMIN/GLOBULI N RATIO 1.5 1.0 - 2.5 (calc) 06/06/2024 2:37 PM CDT [facility] Blood BLOOD SPECIMEN / Unknown Non-Lab Venipuncture / Unknown 06/05/2024 3:14 PM CDT 06/05/2024 3:15 PM CDT Tiana ABERNATHY CHEMISTRY Final Result [facility] [address] [place] [address], * [facility] RAD MRI HEAD BRAIN WO LIMITED (05/27/2024 10:13 AM CDT) Anatomical Region Laterality Modality Magnetic Resonan ce 05/27/2024 10:1 3 AM CDT Impressions 05/27/2024 12:17 PM CDT Limited exam, terminated early due to reported complaints of spinal hardware warming/movement. Only diagnostic sagittal T1 weighted imaging was acquired without gross acute abnormality. Narrative 05/27/2024 12:17 PM CDT For Patients: As a result of the Cures Act, medical imaging exams and procedure reports are released immediately into your electronic medical record. You may view this report before your referring provider. If you have questions, please contact your health care provider. EXAM: [facility] RAD MRI HEAD BRAIN WO LIMITED LOCATION: [facility] DATE: 05/27/2024 INDICATION: Concussion without loss of consciousness, subsequent encounter. Chronic post-traumatic headache, not intractable. Intractable migraine with aura without status migrainosus. COMPARISON: None. TECHNIQUE: Limited head MRI without contrast. Only maintenance painter apprentice imaging and diagnostic sagittal T1 weighted imaging was acquired. Procedure Note Denny Peterson MD - 05/27/2024 For Patients: As a result of the Cures Act, medical imagingexams and procedure reports are released immediately into your electronicmedical record. You may view this report before your referring provider.If you have questions, please contact your health care provider. EXAM: [facility] RAD MRI HEAD BRAIN WO LIMITED LOCATION: [facility] DATE: 05/27/2024 INDICATION: Concussion without loss of consciousness, subsequentencounter. Chronic post-traumatic headache, not intractable. Intractablemigraine with aura without status migrainosus. COMPARISON: None. TECHNIQUE: Limited head MRI without contrast. Only maintenance painter apprentice imaging anddiagnostic sagittal T1 weighted imaging was acquired. IMPRESSION: Limited exam, terminated early due to reported complaints of spinalhardware warming/movement. Only diagnostic sagittal T1 weighted imagingwas acquired without gross acute abnormality. Asya Owen MD MR Final Re sult * (ABNORMAL) PLUG AND MOLD FINISHER THIN PREP PAP SCREEN IMAGED [[id number]] (01/25/2024 1:25 PM CDT) Case Report Gynecologic Cytology Report Case: [id number] Authorizing Provider: Vane Black PA Collected: 01/25/2024 1325 Ordering Location: [facility] Received: 01/25/2024 1409 Clinic First Screen: Jenelle Perry Pathologist: Deandra Herrera MD Specimen: PLUG AND MOLD FINISHER ThinPrep Vial Screening, Cervical 02/07/2024 11:[address] [facility] INTERPRETATION/ RESULT LOW GRADE SQUAMOUS INTRAEPITHELIAL LESION (LSIL)(A) (none) 02/07/2024 11:[address] [facility] IMEN ADEQUACY Satisfactory for evaluation Endocervical component present 02/07/2024 11:[address] [facility] Date of LMP Unknown 02/07/2024 11:[address] [facility] Last Pap Date 05/30/2020 02/07/2024 11:[address] [facility] Last Pap Result NIL 11:[address] [facility] Abnormal Pap or [place] Bx in last 5 years No 02/07/2024 11:[address] [facility] Menstrual Status Hormonally Suppressed 02/07/2024 11:[address] [facility] [place] Bx Done Today No 02/07/2024 11:[address] [facility] Additional Information None given 02/07/2024 11:[address] [facility] Comment: Cytology is screened at [facility] - [address], [place] [address] and [facility] - [address], [place] [address] and [facility] - [address] [place] [address] Interpreted at [facility] - [address], [place] [address] Automated Review Successful 02/07/2024 11:[address] [facility] Comment:Specimen processed s uccessfully by automated director instrumentation device, ThinPrep Imaging System, [employer] Note The pap test is a [...] and malignant lesions. 02/07/2024 11:04 AM CDT [facility] Other (Cervical) Non-Blood / Unknown 01/25/2024 1:25 PM CDT 01/25/2024 2:09 PM CDT us Vane ABERNATHY PATHOLOGY/CYTOLOGY Final Result Performing Organization Address City/[facility]/ZIP Co de Phone Number [facility] [address] [place] [address], [place] * ANTI HCV (12/27/2023 9:25 AM CDT) HEPATITIS C ANTIBODY Non-Reacti ve Non-React gab 12/27/2023 5:26 PM CDT [facility] Comment:Please note, per www .CDC.gov: [...] AM CDT Carson Cardona MD SEND OUTS Final Resul t Performing Organization Address [facility] Co de Phone Number [facility] [address] [place] [address], [place] * LC HIV-1/O/2, 4TH GENERATION (09/03/2022 5:17 PM LICENSE CLERK) HIV Scr 4th Gen Non Reactive Non Reactive 09/09/2022 10:06 PM LICENSE CLERK [facility] Comment: HIV Negative HIV-1/HIV-2 antibodies and HIV-1 p24 antigen were NOT detected. There is no laboratory evidence of HIV infection. Blood BLOOD SPECIMEN / Unknown Venipuncture / Unknown 09/03/2022 5:17 PM LICENSE CLERK 09/03/2022 5:23 PM LICENSE CLERK Narrative [facility] - 09/09/2022 10:06 PM LICENSE CLERK Performed at: 01 - [facility] [address] [place], [place] [id number] Arc Cutter Plasma Arc: Anderson Johnson MD, Phone: [phone] us Carmela Arriola MD LABORATORY Final Resul t [facility] [place] [address], [place] from Last 3 Months or Most Recently Relevant to Health Maintenance Insurance [facility] [employer] [facility] AUTO DISC INSPECTOR INSURANCE [facility] Advance Directives * Full Code (Latest Code Status on File) Date Activated Date Inactivated Comments 02/14/2024 8:57 AM 02/14/2024 9:15 PM Question Answer Comments Code Status Discussion: Reviewed Preferences * Full Code Date Activated Date Inactivated Comments 04/14/2023 12:27 PM 04/14/2023 5:32 PM Question Answer Comments Code Status Discussion: Discussed Care Teams Hop Sorter Relationship Specialty Start Date End Date Vane Black PA [facility] [place] [address] PCP - General Physician Oracle Forms Developer 02/15/23 Carson Cardona MD [address] [facility] [address] [place] [address] Rheumatology 03/20/24
--- OUTSIDE RECORDS SUMMARY | 2024-08-19 08:16 | XMS_ITS | Referral Summary ---
Author Organization [facility] Address [address] [place] [address] Care Team Providers Care Anesthesiology Medical Doctor Name Role Phone Vane Fish APRN, CNP Primary Care [facility] Unavailable Unavailable Allergies No known active allergies [...] 175.3 cm (5' 9) 10/20/2019 8:33 PM SALES RECORD CLERK Body Mass Index - - Plan of Treatment Not on file Care Teams Anesthesiology Medical Doctor Relationship Specialty Start Date End Date Vane Fish APRN, ENGINE MANAGER PCP - General Nurse Practitioner 03/24/20 [facility] PCP - Primary Care Clinic Family Medicine 03/25/20
[2024-08-19 08:17] VITALS: BP 120/76; PULSE 79; RESP 16; TEMP 36.8; O2SAT 97; BMI 30.4
--- OUTSIDE RECORDS SUMMARY | 2024-08-19 08:17 | XMS_ITS | Encounter Summary ---
Author Organization [place] Address [address] [place] [address]. [place] [address] Care Team Providers Care Fisher Troll Line Name Role Phone Sukhwinder Gerard MD Unavailable [phone] Vane Black Primary Care Provider [phone] Jese Simmons DO Unavailable [phone] Vasquez Abdullahi MD Unavailable [phone] Reason for Visit * Reason Onset Date Comments Prior Auth - Medication 06/01/2024 ubrogepa nt (UBRELVY) 100 MG tablet- APPROVED Encounter Details Date Type Department Care Team (Late st Contact Info) Description 06/01/2024 [facility] Neurology [address], [address] [place] [address] Jese Simmons DO [address] [place] [address] Prior Auth - Medication (ubrogepant (UBRELVY) 100 MG tablet- APPROVED ) Social History Tobacco Use Types Packs/Day Years Used Date Smoking Tobacco: Never Smokeless Tobacco: Never Alcohol Use Standard Drinks/Week Comments Yes 0 (1 standard drink = 0.6 oz pur e alcohol) socially PHQ-2 Answer Date Recorded PHQ-2 Score 6 02/20/2020 Adolescent Education Answer Date Record ed Getting School Help Needed Not on file 05/12 Comments No Sex and Gender Information Value Date Recorded Sex Assigned at Not on file Legal Sex Female 4:47 AM COLORED LEATHER SETTER Gender Identity Not on file Sexual Orientation Not on file documented as of this encounter Miscellaneous Notes * Telephone Encounter - Jese Simmons DO - 06/06/2024 8:57 PM CDT Thank you! * Telephone Encounter - Peter Benedict - 06/05/2024 2:21 PM CDT Images from the original note were not included. Prior Authorization Approval Medication: UBRELVY 100 MG PO TABS Authorization Effective Date: 06/05/2024 Authorization Expiration Date: 06/05/2025 Approved Dose/Quantity: Reference #: DockPHP: [employer] [id number] Expected CoPay: $ CoPay Card Available: Financial Assistance Needed: Which Pharmacy is filling the prescription: [id number] - [place] - [address] [facility] Pharmacy Notified: Yes Patient Notified: No * Telephone Encounter - Peter Benedict - 06/05/2024 10:28 AM CDT Images from the original note were not included. Central Prior Authorization Team PA Initiation Medication: UBRELVY 100 MG PO TABS Insurance Company: [employer] [phone] Pharmacy Filling the Rx: [facility] #[id number] - [place], [place] - [address] [facility] Filling Pharmacy Filling Pharmacy Start Date: 06/05/2024 * Telephone Encounter - Snow Foy MA - 06/01/2024 9:00 AM CDT Prior Authorization Retail Medication Request Medication/Dose: ubrogepant (UBRELVY) 100 MG tablet Diagnosis and ICD code (if different than what is on RX): New/renewal/insurance change PA/secondary ins. PA: Previously Tried and Failed: Rationale: Insurance Primary: Insurance ID: Secondary (if applicable): Insurance ID: Pharmacy Information (if different than what is on RX) Name: Phone: Fax: Clinic Information Preferred routing pool for dept communication: [facility] Neurology [place] NGO: [id number] Primary Visit Coverage Payer Plan Sponsor Code Group Number Group Name WORK COMP [facility] 2005 Primary Visit Coverage Subscriber ID Name N Address [id number] [phone] [place] [address] Secondary Visit Coverage Payer Plan Sponsor Code Group Number Group Name [facility] PM[facility] [id number] Secondary Visit Coverage Subscriber ID Name SSN Address [id number] MICKY ANGULO [id number] [facility] [address] [place] [address] documented in this encounter Plan of Treatment Upcoming Encounters Date Type Department Care Team (Late st Contact Info) Description 08/22/2024 4:15 PM COLORED LEATHER SETTER Office Visit [facility] Neurology Clinics [address], [address] [place] [address] Jese Simmons, DO [address] [place], [place] [address] documented as of this encounter Visit Diagnoses Not on filedocumented in this encounter Additional Health Concerns Assessment Noted Time PHQ-9 Depression Total Score: 26 02/19/ 020 3:00 PM CDT documented as of this encounter Care Teams Fisher Troll Line Relationship Specialty Start Date End Date Vane Black PA [address] [place] [address] PCP - General Family Practice 05/12/23 Sukhwinder Gerard MD [address] [place] [address] [address] [place] [address] Gastroenterology 03/08/20 Jese Simmons DO [address] [place] [address] Resident Neurology 05/29/24 Vasquez Abdullahi MD [facility] [address] [place] [address] Emergency Medicine 05/29/24 documented as of this encounter
--- OUTSIDE RECORDS SUMMARY | 2024-08-19 08:17 | XMS_ITS | Encounter Summary ---
Author Organization [place] Address [address] [place] [address]. [place] [address] Care Team Providers Care Store Merchandiser Name Role Phone Sukhwinder Gerard MD Unavailable [phone] Vane Black Primary Care Provider [phone] Jese Simmons DO Unavailable [phone] Vasquez Abdullahi MD Unavailable [phone] Encounter Details Date Type Department Care Team (Late st Contact Info) Description 06/06/2024 MyC Medical Advice [facility] Neurology [facility] - [address], [address] [place] [address] Snow Foy MA Social History Tobacco Use Types Packs/Day Years [...] on file Legal Sex Female 4:47 AM SEAL SKINNER Gender Identity Not on file Sexual Orientation Not on file documented as of this encounter Plan of Treatment Upcoming Encounters Date Type Department Care Team (Late st Contact Info) Description 08/22/2024 4:15 PM SEAL SKINNER Office Visit [facility] Neurology [facility] - [address], [address] [place] [address] Jese Simmons DO [address] [place] [address] documented as of this encounter Visit Diagnoses Not on filedocumented in this encounter Additional Health Concerns Assessment Noted Time PHQ-9 Depression Total Score: 26 020 3:00 PM CDT documented as of this encounter Care Teams Store Merchandiser Relationship Specialty Start Date End Date Vane Black PA [address] [place] [address] PCP - General Family Practice 05/12/23 Sukhwinder Gerard MD [address] [id number] Gastroenterology 03/08/20 Jese Simmons DO [address] [place], [place] [address] Resident Neurology 05/29/24 Vasquez Abdullahi MD [facility] [address] [place] [id number] Emergency Medicine 05/29/24 documented as of this encounter
--- OUTSIDE RECORDS SUMMARY | 2024-08-19 08:17 | XMS_ITS | Encounter Summary ---
Author Organization [place] Address Critical access hospital[facility] [place] [address] Care Team Providers Care Operating Room Orderly Name Role Phone Sukhwinder Gerard MD Unavailable [phone] Vane Black Primary Care Provider [phone] Jese Simmons DO Unavailable [phone] Vasquez Abdullahi MD Unavailable [phone] Reason for Visit * Reason Onset Date Comments Prior Auth - Medication 06/01/2024 galcanez umab-gnlm (EMGALITY) 240 MG/ML injection(Loading Dose); galcanezumab-gnlm (EMGALITY) 120 MG/ML injection(Maintenance Dose)-[place] APPROVED Encounter Details Date Type Department Care Team (Late st Contact Info) Description 06/01/2024 Telephone [facility] Neurology Clinics [address], [address] [place] [address] Jese Simmons DO [address] [place], [place] [address] Prior Auth - Medication (galcanezumab-gnlm (EMGALITY) 240 MG/ML injection(Loading Dose); galcanezumab-gnlm (EMGALITY) 120 MG/ML injection(Maintenance Dose)-[place] APPROVED ) Social History Tobacco Use Types [...] on file Legal Sex Female 4:47 AM CHAIN MAKER Gender Identity Not on file Sexual Orientation Not on file documented as of this encounter Miscellaneous Notes * Telephone Encounter - Baron Pacheco - 06/06/2024 9:37 AM CDT Images from the original note were not included. Prior Authorization Approval Authorization Effective Date: 06/05/2024 Authorization Expiration Date: 11/03/2024 (6 MONTHS) Medication: galcanezumab-gnlm (EMGALITY) 240 MG/ML injection(Loading Dose); galcanezumab-gnlm (EMGALITY) 120 MG/ML injection(Maintenance Dose)-[place] APPROVED Approved Dose/Quantity: Reference #: 1calendar: CareFlash [id number] Expected CoPay: CoPay Card Available: Foundation Assistance Needed: Which Pharmacy is filling the prescription (Not needed for infusion/clinic administered): [email or web address][id number] - [place], [place] - [address] [facility] Pharmacy Notified: Yes- Instructed pharmacy to notify patient when script is ready to orange picking supervisor/ship. Patient Notified: Yes * Telephone Encounter - Baron Pacheco - 06/05/2024 12:36 PM CDT Images from the original note were not included. Central Prior Authorization Team PA Initiation Medication: galcanezumab-gnlm (EMGALITY) 240 MG/ML injection(Loading Dose); galcanezumab-gnlm (EMGALITY) 120 MG/ML injection(Maintenance Dose) Insurance Aviary: [employer]Flash [phone] Pharmacy Filling the Rx: [facility] #[id number] - [place] - [address] [facility] Filling Pharmacy Filling Pharmacy Fax: Start Date: 06/05/2024 * Telephone Encounter - Snow Foy MA - 06/01/2024 11:05 AM CDT Prior Authorization Retail Medication Request Medication/Dose: galcanezumab-gnlm (EMGALITY) 240 MG/ML injection(Loading Dose); galcanezumab-gnlm (EMGALITY) 120 MG/ML injection(Maintenance Dose) Diagnosis and ICD code (if different than what is on RX): New/renewal/insurance change PA/secondary ins. PA: Previously Tried and Failed: Rationale: Insurance Primary: Insurance ID: Secondary (if applicable): Insurance ID: Pharmacy Information (if different than what is on RX) Name: Phone: Fax: Clinic Information Preferred routing pool for dept communication: [facility]) Primary Visit Coverage Payer Plan Sponsor Code Group Number Group Name WORK [employer] 2005 Primary Visit Coverage Subscriber ID Name [facility] Address [id number]'s Pizzeria [phone] [place] [address] Secondary Visit Coverage Payer Plan Sponsor Code Group Number Group Name [facility] PMAP [id number] Secondary Visit Coverage Subscriber ID Name [facility] Address [id number] MICKY ANGULO [phone] [place] [address] documented in this encounter Plan of Treatment Upcoming Encounters Date Type Department Care Team (Late st Contact Info) Description 08/22/2024 4:15 PM CHAIN MAKER Office Visit [facility] Neurology Clinics - [address], [address] [place] [address] Jese Simmons DO [address] [place], [place] [address] documented as of this encounter Visit Diagnoses Not on filedocumented in this encounter Additional Health Concerns Assessment Noted Time PHQ-9 Depression Total Score: 26 020 3:00 PM CDT documented as of this encounter Care Teams Operating Room Orderly Relationship Specialty Start Date End Date Vane Black PA [address] [place] [address] PCP - General Family Practice 05/12/23 Sukhwinder Gerard MD [address] [place] [address] Gastroenterology 03/08/20 Jese Simmons DO [address] [place] [address] Resident Neurology 05/29/24 Vasquez Abdullahi MD [facility] [address] [place], [place] [address] Emergency Medicine 05/29/24 documented as of this encounter
--- OUTSIDE RECORDS SUMMARY | 2024-08-19 08:17 | XMS_ITS | Encounter Summary ---
Author Organization [facility] Address [address] [place] [address] Care Team Providers Care Tube Machine Operator Helper Name Role Phone Lucy Valverde MD Primary Care Provider Marilou Quigley MD Primary Care Provider Lola Laurent PA-C Unavailable Lucy Valverde MD Unavailable [phone] Sukhwinder Gerard MD Unavailable Sukhwinder Gerard MD Unavailable [phone] Vane Hua APRN COLLAR CUTTER Unavailable Unavai Lucy Gonzales MD Unavailable [phone] Lucy Valverde MD Unavailable Vane Hua APRN COLLAR CUTTER Unavailable Unavai Vane Arroyo Primary Care Provider [phone] Jese Simmons DO Unavailable Vasquez Abdullahi MD Unavailable Encounter Details Date Type Department Care Team (Late st Contact Info) Description 10/04/2007 Abstract [facility] [address] [place] [address] Lucy Valverde MD [address] [facility] [place] [address] Social History Tobacco Use Types Packs/Day Years Used Date Smoking Tobacco: Never Assessed Comments Unknown Sex and Gender Information Value Date Recorded Sex Assigned at Not on file Legal Sex Female 4:47 AM OTOLARYNGOLOGIST Gender Identity Not on file Sexual Orientation Not on file documented as of this encounter Plan of Treatment Upcoming Encounters Date Type Department Care Team (Late st Contact Info) Description 08/22/2024 4:15 PM OTOLARYNGOLOGIST Office Visit [facility] Neurology [facility] - [address], [address] [place] [id number] Jese Simmons, [address] [place] [address] documented as of this encounter Visit Diagnoses Not on filedocumented in this encounter Additional Health Concerns Infection Onset Date Last Indicated Resolved Time Rule Out COVID-19 02/27/2020 02/27/2020 02/28/2020 2:25 PM CDT documented as of this encounter Care Teams Tube Machine Operator Helper Relationship Specialty Start Date End Date Lucy Valverde MD [address] [place] [address] PCP - General 08/23/07 04/28/17 Marilou Quigley MD [facility] [address], [place] [address] PCP - General 04/29/17 05/11/23 Vane Black PA [address] [place] [address] PCP - General Family Practice 05/12/23 Lola Laurent PA-C [address] [place] [address] Assigned PCP 09/23/19 11/18/19 Lucy Valverde MD [address] [place] [address] Assigned PCP 11/19/19 11/16/20 Sukhwinder Gerard MD [address] [place] [address] [address] [place] [address] Gastroenterology 03/08/20 Sukhwinder Gerard MD [place] [facility] [address] [address] [place] [address] Assigned Gastroenterology Provider 06/07/20 09/06/21 Vane Hua APRN COLLAR CUTTER Assigned PCP 11/17/20 02/27/21 Lucy Valverde MD [address] [facility] [place] [address] Assigned PCP 02/28/21 07/31/22 Lucy Valverde MD [address] [facility] [place] [address] Assigned PCP 10/10/22 11/13/22 Vane Hua APRN COLLAR CUTTER Assigned PCP 11/14/22 02/19/23 Jese Simmons DO [address] [place] [id number] Resident Neurology 05/29/24 Vasquez Abdullahi MD [facility] [address] [place] [address] Emergency Medicine 05/29/24 documented as of this encounter
--- OUTSIDE RECORDS SUMMARY | 2024-08-19 08:17 | XMS_ITS | Clinical Summary ---
Author Organization [facility] Address [address] [place] [address] Care Team Providers Care Returned Item Clerk Name Role Phone Sukhwinder Gerard MD Unavailable [phone] Vane Black Primary Care Provider [phone] Jese Simmons DO Unavailable [phone] Vasquez Abdullahi MD Unavailable [phone] Allergies Active Allergy Reactions Criticality Noted Date Comments [place] Oil 04/27/2018 Other reaction(s): GI Upset [place] Oil 04/27/2018 Other reaction(s): GI Upset Crab Extract 04/27/2018 Other reaction(s): GI Upset Fish Oil Other (See Comments) 07/11/2018 Golimumab Anaphylaxis High 12/26/2023 Hot, flushed, nauseated, disoriented, tingling in mouth and throat, slurred speech Passion Fruit Flavoring Agent (Non-Screening) Anaphylaxis High 04/26/2024 Trazodone Other (See Comments),Unknown 09/17/2023 Pt reports suicidal thoughts Suicidal thoughts Suicidal thoughts Pt reports suicidal thoughts Medications ibuprofen (ADVIL/MOTRIN) 600 MG tablet Take 1 tablet (600 mg) by mouth every 6 hours as needed for moderate pain 20 tablet 11/13/19 19 Active tiZANidine (ZANAFLEX) 2 MG tablet Take 2 mg by mouth 2 times daily as needed for muscle spasms Active hydrOXYzine (ATARAX) 25 MG tablet 11/27/19 20 Active drospirenone-et hinyl estradiol (KALEIGH) 3-0.03 MG tabletIndicatio ns:Menorrhagia with regular cycle,Pelvic pain in female,PCOS (polycystic ovarian syndrome),Endom etriosis Take 1 pill daily of active pills for 4 packs (12 weeks) Prior to taking 1 week of inactive pills. 112 tablet 1 11/27/19 Active rizatriptan (MAXALT) 10 MG tabletIndicatio ns:Migraine with aura and without status migrainosus, not intractable Take 1 tablet (10 mg) by mouth at onset of headache for migraine May repeat in 2 hours. Max 3 tablets/24 hours. 11/27/19 Active ondansetron (ZOFRAN-ODT) 4 MG ODT tabIndications: Nausea Take 1 tablet (4 mg) by mouth every 8 hours as needed for nausea 10 tablet 02/20/20 Active predniSONE (DELTASONE) 20 MG tablet Take two tablets (= 40mg) each day for 5 (five) days 10 tablet 04/26/20 24 Active EPINEPHrine (ANY BX GENERIC EQUIV) 0.3 MG/0.3ML injection 2-pack Inject 0.3 mLs (0.3 mg) into the muscle once as needed for anaphylaxis. May repeat one time in 5-15 minutes if response to initial dose is inadequate. 2 each 04/26/20 24 Active fluticasone (FLONASE) 50 MCG/ACT nasal spray [place] 1 spray into both nostrils daily. 16 g 05/16/20 24 Active fexofenadine (NAEEM) 180 MG tablet Take 10 mg by mouth daily. Active pregabalin (LYRICA) 75 MG capsule Take 150 mg by mouth 2 times daily. Active metFORMIN (GLUCOPHAGE-XR) 750 MG 24 hr tablet Take 750 mg by mouth daily (with dinner). Active lithium (ESKALITH) 600 MG capsule Take 900 mg by mouth at bedtime. Active suvorexant (BELSOMRA) 5 MG tablet Take 10 mg by mouth nightly as needed for sleep. 5-10mg Active albuterol (PROAIR HFA/PROVENTIL HFA/VENTOLIN HFA) 108 (90 Base) MCG/ACT inhaler Inhale 1-2 puffs into the lungs every 6 hours as needed for shortness of breath, wheezing or cough. Active adalimumab (HUMIRA) 40 MG/0.8ML prefilled syringe kit Inject 40 mg subcutaneously every 14 days. Active clonazePAM (KLONOPIN) 0.5 MG tablet Take 0.5 mg by mouth 2 times daily as needed for anxiety. Active metoclopramide (REGLAN) 10 MG tablet Take 1 tablet (10 mg) by mouth 3 times daily as needed (to take with benadryl for headache). 15 tablet 05/27/20 24 Active diphenhydrAMINE (BENADRYL) 25 MG capsule Take 1 capsule (25 mg) by mouth 3 times daily as needed for other (to take with reglan for headache). 15 capsule 05/27/20 24 Active ubrogepant (UBRELVY) 100 MG tabletIndicatio ns:Intractable migraine with aura with status migrainosus Take 1 tablet (100 mg) by mouth at onset of headache (Migraine. Max dose = 2 pills in a 24 hour.). 10 tablet 11 05/30/20 Active galcanezumab-gn lm (EMGALITY) 120 MG/ML injectionIndica tions:Intractab le migraine with aura with status migrainosus Inject 1 mL (120 mg) subcutaneously every 28 days. 1 mL 11 06/29/20 24 Active cetirizine (ZYRTEC) 10 MG tablet Take 10 mg by mouth. 04/26/20 Active diclofenac (VOLTAREN) 1 % topical gel APPLY 2 GRAMS TOPICALLY TO THE AFFECTED AREA FOUR TIMES DAILY 06/15/20 Active norethindrone-e thinyl estradiol (MICROGESTIN 09/04) 1-20 MG-MCG tablet Take 1 tablet by mouth daily. Active adalimumab (HUMIRA *CF* PEN) 40 MG/0.4ML pen kit Inject 40 mg subcutaneously. 05/10/20 Active albuterol (PROAIR HFA/PROVENTIL HFA/VENTOLIN HFA) 108 (90 Base) MCG/ACT inhaler Inhale 2 puffs into the lungs. 02/24/20 Active clonazePAM (KLONOPIN) 0.5 MG tablet Take 0.5 mg by mouth. 03/01/20 24 Active lithium (ESKALITH) 600 MG capsule Take 1 capsule by mouth at bedtime. 02/23/20 24 Active lithium 300 MG capsule 300 mg. 02/23/20 24 Active metFORMIN (GLUCOPHAGE-XR) 750 MG 24 hr tablet Take 750 mg by mouth. Active pregabalin (LYRICA) 75 MG capsule Take 75 mg by mouth. Active rizatriptan (MAXALT-REGULATORY AFFAIRS PORTFOLIO LEADER) 5 MG ODT DISSOLVE 1 TABLET ON THE TONGUE TWICE DAILY NEEDED FOR MIGRAINE. GIVE AT MINIMUM TWO HOURS APART. MAXIMUM DOSE 30 MG PER 24 HOURS 05/21/20 Active Suvorexant (BELSOMRA) 10 MG tablet Take 10 mg by mouth at bedtime. 02/15/20 Active Active Problems Problem Noted Date Diagnosed Date Intractable migraine with aura with status migra inosus 05/30/2024 Chronic pelvic pain in female 02/14/2024 Intra-abdominal adhesions 02/14/2024 LGSIL of cervix of undetermined significance Overview (05/31/2024): 01/2024 LSIL Plan: HPV based testing in 1 year Ankylosing spondylitis of thoracolumbar region 0 12/28/2023 Other specified hypothyroidism 04/21/2022 Injury of head 03/18/2022 Drug abuse 05/01/2021 Dysmenorrhea 10/25/2020 Overview (05/31/2024): Added automatically from request for surgery [id number] Added automatically from request for surgery [id number] Added automatically from request for surgery [id number] Anorexia nervosa, restrictin g type, in partial remission, moderate 06/24/2020 Endometriosis 05/28/2020 Overview (05/31/2024): 10/18/20: Patient presents with greater than 5-year [...] currently scheduled for 12/04/2020. Consents were signed. 10/18/20: Patient presents with greater than 5-year [...] currently scheduled for 12/04/2020. Consents were signed. 10/18/20: Patient presents with greater than 5-year [...] currently scheduled for 12/04/2020. Consents were signed. PCOS (polycystic ovarian syndrome) 05/28/2020 Overview (05/31/2024): Last Assessment & Plan: Right now I would have her stay off the Metformin since I don't know if that is contributing to the symptoms, and she is beginning to feel better. Will readdress this when everything is settled and stable. Low back pain 03/28/2020 Chronic post-traumatic stress disorder (PTSD) Eating disorder 01/09/2020 Generalized anxiety disorder 01/09/2020 Inability to cope 01/09/2020 Major depressive disorder 01/09/2020 Borderline personality disorder 08/23/2018 Episodic mood disorder 08/23/2018 Suicidal ideation 04/29/2017 Encounters Date Type Department Care Team Description 06/06/2024 MyC Medical Advice [facility] - [address], [address] [place] [phone] Snow Foy MA 06/01/2024 Telephone [facility] - [address], [address] [place] [phone] Jese Simmons DO Prior Auth - Medication (galcanezumab-gnlm (EMGALITY) 240 MG/ML injection(Loading Dose); galcanezumab-gnlm (EMGALITY) 120 MG/ML injection(Maintenance Dose)-PR APPROVED ) 06/01/2024 Telephone [facility] - [address] [place] [address] Jese Simmons DO Prior Auth - Medication (ubrogepant (UBRELVY) 100 MG tablet- APPROVED ) 05/30/2024 1:00 PM CDT Office Visit [facility] - [address] [address] Vasquez Abdullahi MD Giuliani, Charles, DO Intractable migraine with aura with status migrainosus (Primary Dx) 05/30/2024 Travel 05/29/2024 Telephone [facility] - [address] [address] Jese Simmons DO 05/27/2024 6:47 PM CDT - 05/28/2024 12:15 AM CDT Emergency [facility] Emergency Dept [address] [place] [address] Vasquez Abdullahi MD Nonintractable headache, unspecified chronicity pattern, unspecified headache type; Left-sided weakness Discharge Disposition: Home or Self Care 05/27/2024 Travel from Last 3 Months Immunizations Name Administration Dates Next Due DTAP (<7y) 04/29/2004, 2,08/25/2001,2000,1999,1999,1999 HEPATITIS A (PEDS 12M-18Y) 12/14/2014,04/20/2014 HIB (PRP-T) 04/26/2000, 0,1999,1998 HPV Quadrivalent 12/14/2014,07/06/2014, 4 HepB 04/26/2000,1999,1999 Influenza (IIV3) PF 05/24/2012, 0,08/23/2007,2006 Influenza Vaccine >6 months,quad, PF 08/25/2018, 07/24/2017,07/03/2016 MMR 04/29/2004,04/26/2000 Meningococcal ACWY (Menactra ) 05/21/2010 Pneumococcal (PCV 7) 04/25/2001,10/25/2000 Poliovirus, inactivated [...] on file Legal Sex Female 4:47 AM 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 Gender Identity Not on file Sexual Orientation Not on file Last Filed Vital Signs Vital Sign Reading Time Taken Comments Blood Pressure 112/75 05/30/2024 12:57 PM CDT Pulse 78 05/30/2024 12:57 PM CDT Temperature 36.9 C (98.4 F) 05/27/2024 6:49 PM CDT Respiratory Rate 21 05/27/2024 11:00 PM CDT Oxygen Saturation 98% 05/30/2024 12:57 PM CDT Inhaled Oxygen Concentration - - Weight 97.7 kg (215 lb 6 oz) 05/30/2024 12:57 PM CDT Height 177.8 cm (5' 10) 05/30/2024 12:57 PM CDT Body Mass Index 30.9 05/30/2024 12:57 PM CDT Plan of Treatment Upcoming Encounters Date Type Department Care Team (Late st Contact Info) Description 08/22/2024 4:15 PM 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 Office Visit [facility] [address], [address] [place] [address] TroyJese lozano, DO [address] [place], [place] [phone] Health Maintenance Due Date Last Done Comments ADVANCE CARE PLANNING 1999 ANNUAL REVIEW OF HM ORDERS 1999 HIV SCREENING 2014 HEPATITIS C SCREENING 2017 Pneumococcal Vaccine: Pediatrics (0 to 5 Years) and At-Risk Patients (6 to 49 Years) (1 of 2 - PCV) 2018 04/25/2001, 10/25/2000 TSH W/FREE T4 REFLEX 02/12/2021 02/13/2020, 02/13/2020, 11/27/2019, Additional history exists COVID-19 Vaccine (2023- season) 2024 05/08/2024, 08/23/2023, 06/26/2022, Additional history exists YEARLY PREVENTIVE VISIT 01/24/2025 01/25/20 24, 06/03/2021, 05/28/2020 PAP 01/24/2027 01/25/2024, 05/28/2020 DTAP/TDAP/TD IMMUNIZATION (8 - Td or Tdap) 01/24/2034 01/25/2024, 05/21/2010, 04/29/2004, Additional history exists RSV VACCINE (1 - 1-dose 75+ series) 2074 HEPATITIS B IMMUNIZATION Completed 000, 04/26/2000, 1999, Additional history exists MENINGITIS IMMUNIZATION Aged Out 05/21/2010 No l onger eligible based on patient's age to complete this topic HPV IMMUNIZATION Completed 12/14/2014, , 04/20/2014 CHLAMYDIA SCREENING Discontinued 04/14/2024, 01/25/2024, 09/03/2022, Additional history exists INFLUENZA VACCINE Completed 05/08/2024, , 06/26/2022, Additional history exists MENINGITIS B IMMUNIZATION Aged Out No longer eligible based on patient's age to complete this topic RSV MONOCLONAL ANTIBODY Aged Out No l onger eligible based on patient's age to complete this topic Procedures Procedure Name Priority Date/Time Associated Diagnosis Comments CT HEAD W/O CONTRAST STAT 05/27/2024 10:33 PM CDT CBC WITH PLATELETS & DIFFERENTIAL STAT 05/27/2024 9:27 PM CDT RBC AND PLATELET MORPHOLOGY STAT 05/27/2024 9:27 PM CDT CBC WITH PLATELETS AND DIFFERENTIAL STAT 05/27/2024 9:27 PM CDT HCG QUALITATIVE STAT 05/27/2024 9:27 PM CDT D DIMER QUANTITATIVE STAT 05/27/2024 9:27 PM CDT BASIC METABOLIC PANEL STAT 05/27/2024 9:27 PM CDT TSH Routine 02/13/2020 5:40 PM CDT Major depression, single episode CHLAMYDIA TRACHOMATIS PCR Routine 01/08/2020 4:10 PM CDT Vaginal discharge Concern about STD in female without diagnosis from Last 3 Months or Most Recently Relevant to Health Maintenance Results * Head CT w/o contrast (05/27/2024 10:33 PM CDT) Anatomical Region Laterality Modality Head, SUBRAD CT NEURO, SUBRA D CT NEURO, UMP CT NEURO, RAD CT Computed Tomography 05/27/2024 10:3 3 PM CDT Impressions 05/27/2024 11:30 PM CDT IMPRESSION: 1. Normal head CT. Narrative 05/27/2024 11:30 PM CDT EXAM: CT HEAD W/O CONTRAST LOCATION: [facility] DATE: 05/27/2024 INDICATION: left sided weakness (subjective), cant tolerate MRI COMPARISON: Head CT dated 07/15/2018 and MRI dated 04/28/2019 TECHNIQUE: Routine CT Head without IV contrast. Multiplanar reformats. Dose reduction techniques were used. FINDINGS: INTRACRANIAL CONTENTS: No intracranial hemorrhage, extraaxial collection, or mass effect. No CT evidence of acute infarct. Normal parenchymal attenuation. Normal ventricles and sulci. VISUALIZED ORBITS/SINUSES/MASTOIDS: No intraorbital abnormality. No paranasal sinus mucosal disease. No middle ear or mastoid effusion. BONES/SOFT TISSUES: No acute abnormality. Procedure Note Joselito Padron MD - 05/27/2024 EXAM: CT HEAD W/O CONTRAST LOCATION: [facility] DATE: 05/27/2024 INDICATION: left sided weakness (subjective), cant tolerate MRI COMPARISON: Head CT dated 07/15/2018 and MRI dated 04/28/2019 TECHNIQUE: Routine CT Head without IV contrast. Multiplanar reformats.Dose reduction techniques were used. FINDINGS: INTRACRANIAL CONTENTS: No intracranial hemorrhage, extraaxial collection,or mass effect. No CT evidence of acute infarct. Normal parenchymalattenuation. Normal ventricles and sulci. VISUALIZED ORBITS/SINUSES/MASTOIDS: No intraorbital abnormality. Noparanasal sinus mucosal disease. No middle ear or mastoid effusion. BONES/SOFT TISSUES: No acute abnormality. IMPRESSION: 1. Normal head CT. us Vasquez Abdullahi MD [facility] CT ORDERABLES Final Resul t * (ABNORMAL) RBC and Platelet Morphology (05/27/2024 9:27 PM CDT) Pathologist [facility] RBC Morphology Confirmed RBC Indices 05/27/2024 10:09 PM CDT LABORATORY Platelet Assessment Automated Count Confirmed. Platelet morphology is normal. Automated Count Confirmed. Platelet morphology is normal. DEEPIKA 05/27/2024 10:09 PM CDT LABORATORY Reactive Lymphocytes Present(A) None Seen [facility] 05/27/2024 10:09 PM CDT LABORATORY Blood BLOOD SPECIMEN / Unknown Venipuncture / Unknown 05/27/2024 9:27 PM CDT 05/27/2024 9:43 PM CDT us Vasquez Abdullahi MD LAB - BLOOD ORDERABLES Final Result LABORATORY [facility] [address], [address] [place] [address], [facility] [phone] * (ABNORMAL) CBC with platelets and differential (05/27/2024 9:27 PM CDT) WBC Count 12.9(H) 4.0 - 11.0 10e3/uL 05/27/2024 10:09 PM CDT LABORATORY RBC Count 4.52 3.80 - 5.20 10e6/uL 05/27/2024 10:09 PM CDT LABORATORY Hemoglobin 13.9 11.7 - 15.7 g/dL 05/27/2024 10:09 PM CDT LABORATORY Hematocrit 41.6 35.0 - 47.0 % 05/27/2024 10:09 PM CDT LABORATORY MCV 92 78 - 100 fL 05/27/2024 10:09 PM CDT LABORATORY MCH 30.8 26.5 - 33.0 pg 05/27/2024 10:09 PM CDT LABORATORY MCHC 33.4 31.5 - 36.5 g/dL 05/27/2024 10:09 PM CDT LABORATORY RDW 12.1 10.0 - 15.0 % 05/27/2024 10:09 PM CDT LABORATORY Platelet Count 322 150 - 450 10e3/uL 05/27/2024 10:09 PM CDT LABORATORY % Neutrophils 45 % 05/27/2024 10:09 PM CDT LABORATORY % Lymphocytes 43 % 05/27/2024 10:09 PM CDT LABORATORY % Monocytes 9 % 05/27/2024 10:09 PM CDT LABORATORY % Eosinophils 3 % 05/27/2024 10:09 PM CDT LABORATORY % Basophils 1 % 05/27/2024 10:09 PM CDT LABORATORY % Immature Granulocytes 0 % 05/27/2024 10:09 PM CDT LABORATORY NRBCs per 100 WBC 0 <1 /100 024 10:09 PM CDT LABORATORY Absolute Neutrophils 5.8 1.6 - 8.3 10e3/uL 05/27/2024 10:09 PM CDT LABORATORY Absolute Lymphocytes 5.5(H) 0.8 - 5.3 10e3/uL 05/27/2024 10:09 PM CDT LABORATORY Absolute Monocytes 1.1 0.0 - 1.3 10e3/uL 05/27/2024 10:09 PM CDT LABORATORY Absolute Eosinophils 0.4 0.0 - 0.7 10e3/uL 05/27/2024 10:09 PM CDT LABORATORY Absolute Basophils 0.1 0.0 - 0.2 10e3/uL 05/27/2024 10:09 PM CDT LABORATORY Absolute Immature Granulocytes 0.0 <=0.4 10e3/uL 05/27/2024 10:09 PM CDT LABORATORY Absolute NRBCs 0.0 10e3/uL 05/27/2024 10:09 PM CDT LABORATORY Blood BLOOD SPECIMEN / Unknown Venipuncture / Unknown 05/27/2024 9:27 PM CDT 05/27/2024 9:43 PM CDT Vasquez Abdullahi MD LAB - BLOOD ORDERABLES Final Result LABORATORY [facility] [address], [address] [place] [address], [facility] [phone] * HCG QUALitative (blood) (05/27/2024 9:27 PM CDT) hCG Serum Qualitative Negative Negative DEEPIKA 05/27/2024 9:56 PM CDT LABORATORY Comment:This test is for scr eening purposes. Results should be interpreted along with the clinical picture. Confirmation testing is available if warranted by ordering [id number], HCG Quantitative . Blood BLOOD SPECIMEN / Unknown Venipuncture / Unknown 05/27/2024 9:27 PM CDT 05/27/2024 9:43 PM CDT Vasquez Abdullahi MD LAB - BLOOD ORDERABLES Final Result LABORATORY [facility] [address], [address] [place] [address], [facility] [phone] * D dimer quantitative (05/27/2024 9:27 PM CDT) [facility] D-Dimer Quantitative 0.30 0.00 - 0.50 ug/mL FEU 05/27/2024 10:11 PM CDT LABORATORY Blood BLOOD SPECIMEN / Unknown Venipuncture / Unknown 05/27/2024 9:27 PM CDT 05/27/2024 9:43 PM CDT [facility] LABORATORY - 05/27/2024 10:11 PM CDT This D-dimer assay is intended for use in conjunction with a clinical pretest probability assessment model to exclude pulmonary embolism (PE) and deep venous thrombosis (DVT) in outpatients suspected of PE or DVT. The cut-off value is 0.50 ug/mL FEU. Vasquez Abdullahi MD LAB - BLOOD ORDERABLES Final Result LABORATORY [facility] [address], [address] [place] [address], [facility] [phone] * (ABNORMAL) Basic metabolic panel (05/27/2024 9:27 PM CDT) [facility] Sodium 141 135 - 145 mmol/L 05/27/2024 10:03 PM CDT LABORATORY Potassium 3.4 3.4 - 5.3 mmol/L 05/27/2024 10:03 PM CDT LABORATORY Chloride 108(H) 98 - 107 mmol/L 05/27/2024 10:03 PM CDT LABORATORY Carbon Dioxide (CO2) 22 22 - 29 mmol/L 05/27/2024 10:03 PM CDT LABORATORY Anion Gap 11 7 - 15 mmol/L 05/27/2024 10:03 PM CDT LABORATORY Urea Nitrogen 10.9 6.0 - 20.0 mg/dL 05/27/2024 10:03 PM CDT LABORATORY Creatinine 0.58 0.51 - 0.95 mg/dL 05/27/2024 10:03 PM CDT LABORATORY GFR Estimate >90 >60 mL/min/1.7 3m2 05/27/2024 10:03 PM CDT LABORATORY Comment:eGFR calculated usin 2020 CKD-EPI equation. Calcium 8.4(L) 8.8 - 10.4 mg/dL 05/27/2024 10:03 PM CDT LABORATORY Comment:Reference intervals for this test were updated on 02/29/2024 to reflect our healthy population more accurately. There may be differences in the flagging of prior results with similar values performed with this method. Those prior results can be interpreted in the context of the updated reference intervals. Glucose 85 70 - 99 mg/dL 05/27/2024 10:03 PM CDT LABORATORY Blood BLOOD SPECIMEN / Unknown Venipuncture / Unknown 05/27/2024 9:27 PM CDT 05/27/2024 9:43 PM CDT Vasquez Abdullahi MD LAB - BLOOD ORDERABLES Final Result LABORATORY [facility] [address], [address] [place] [address], [facility] [phone] * TSH (02/13/2020 5:40 PM CDT) [facility] TSH 1.53 0.40 - 4.00 mU/L 02/16/2020 8:14 AM CDT [facility] Blood specimen (specimen) 02/13/2020 5:40 PM CDT 02/15/2020 2:00 PM CDT Lab Non-Fv Credentialed Provider LAB - BLOOD ORD ERABLES Final Result Performing Organization Address [facility]/ZIP Co de Phone Number [facility] [address] [place] [address] * CHLAMYDIA TRACHOMATIS PCR (01/08/2020 4:10 PM CDT) Pathologist [facility] Specimen Description Vagina 01/08/2020 4:12 PM CDT [facility] Chlamydia Trachomatis PCR Negative NEG^Negat gab 01/09/2020 1:59 PM CDT [facility] Comment: Negative for C. trachomatis rRNA by ocean import representative mediated amplification. A negative result by ocean import representative mediated amplification does not preclude the presence of C. trachomatis infection because results are dependent on proper and adequate collection, absence of inhibitors, and sufficient rRNA to be detected. Specimen from vagina (specimen) 01/08/2020 4:10 PM CDT 01/08/2020 4:11 PM CDT us Keyana Ortiz PA-C LAB - MICRO GENERAL ORDER JOSE Final Result [facility] [address] [place], [place] [address] [address] [place] [address] from Last 3 Months or Most Recently Relevant to Health Maintenance Insurance [facility] NONE (Work) [address] [place] [id number] NONE (Work) [address] [place] [address] [employer] Advance Directives For more information, please contact: [phone] * Full Code (Latest Code Status on File) Date Activated Date Inactivated Comments 07/23/2017 10:23 PM 07/26/2017 5:52 PM * Full Code Date Activated Date Inactivated Comments 04/29/2017 10:56 PM 05/06/2017 4:51 PM Care Teams Returned Item Clerk Relationship Specialty Start Date End Date Vane Black PA [address] [place] [address] PCP - General Family Practice 05/12/23 Sukhwinder Gerard MD [address] [address] Gastroenterology 03/08/20 Jese Simmons DO [address] [place] [id number] Resident Neurology 05/29/24 Vasquez Abdullahi MD [facility] [address] [place] [address] [place] [id number] Emergency Medicine 05/29/24
--- OUTSIDE RECORDS SUMMARY | 2024-08-19 08:17 | XMS_ITS | Encounter Summary ---
Author Organization [place] Address [facility]0 [facility] [place] [address] Care Team Providers Care Fund Accounting Manager Name Role Phone Marilou Quigley MD Primary Care Provider Lola LaurentC Unavailable [phone] Lucy Valverde MD Unavailable [phone] Sukhwinder Gerard MD Unavailable [phone] Sukhwinder Gerard MD Unavailable [phone] Vane Hua APRN DIRECTOR FINANCIAL SERVICES Unavailable Unavai Lucy Gonzales MD Unavailable [phone] Lucy Valverde MD Unavailable [phone] Vane Hua SOFTWARE SECURITY CONSULTANT DIRECTOR FINANCIAL SERVICES Unavailable Unavai Vane Arroyo Primary Care Provider + [phone] Jese Simmons DO Unavailable [phone] Vasquez Abdullahi MD Unavailable [phone] Reason for Visit * Reason Onset Date Comments Mental Health Problem 04/29/2017 Encounter Details Date Type Department Care Team ([facility] Contact Info) Description 04/29/2017 Telephone [facility] Behavioral Health Intake [address] [place] [address] Generic, Behavioral IntakeMD Mental Health Problem Social History Tobacco Use Types Packs/Day Years Used Date Smoking Tobacco: Never Alcohol Use Standard Drinks/Week Comments No 0 (1 standard drink = 0.6 oz pur e alcohol) Comments No Sex and Gender Information Value Date Recorded Sex Assigned at Not on file Legal Sex Female 4:47 AM 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 B: Pt was BIB parents to the [facility] ED due to suicidal ideation with [...] st Contact Info) Description 08/22/2024 4:15 PM RESERVATIONS MANAGER Office Visit [facility] Neurology Clinics - [address], [address] [place] [address] Jese Simmons, DO [address] [place] [address] documented as of this encounter Visit Diagnoses Not on filedocumented in this encounter Additional Health Concerns Infection Onset Date Last Indicated Resolved Time Rule Out COVID-19 02/27/2020 02/27/2020 02/28/2020 2:25 PM CDT documented as of this encounter Care Teams Fund Accounting Manager Relationship Specialty Start Date End Date Marilou Quigley MD [facility] [address] [place] [address] PCP - General 04/29/17 05/11/23 Vane Black PA [address] [place] [address] PCP - General Family Practice 05/12/23 Lola Laurent PA-C [address] [place], [place] [id number] Assigned PCP 09/23/19 11/18/19 Lucy Valverde MD [address] [place] [address] [id number] Assigned PCP 11/19/19 11/16/20 Sukhwinder Gerard MD [address] [place] [address] [address] [place], [place] [id number] Gastroenterology 03/08/20 Sukhwinder Gerard MD [facility] [address] [address] [place], [place] [id number] Assigned Gastroenterology Provider 06/07/20 09/06/21 Vane Hua APRN DIRECTOR FINANCIAL SERVICES Assigned PCP 11/17/20 02/27/21 Lucy Valverde MD [address] [place], [place] [address] Assigned PCP 02/28/21 07/31/22 Lucy Valverde MD [address] [place] [address] Assigned PCP 10/10/22 11/13/22 Vane Hua APRN DIRECTOR FINANCIAL SERVICES Assigned PCP 11/14/22 02/19/23 Jese Simmons DO [address] [place] [id number] Resident Neurology 05/29/24 Vasquez Abdullahi MD [facility] [address] [address] Emergency Medicine 05/29/24 documented as of this encounter
--- OUTSIDE RECORDS SUMMARY | 2024-08-19 08:17 | XMS_ITS | Referral Summary ---
Author Organization [place] Address [facility]0 [facility] [place] [address] Care Team Providers Care Servicing Rep Name Role Phone Sukhwinder Gerard MD Unavailable [phone] Vane Black Primary Care Provider [phone] Jese Simmons DO Unavailable [phone] Vasquez Abdullahi MD Unavailable [phone] Encounters Date Type Department Care Team Description 06/06/2024 MyC Medical Advice [facility] Neurology [facility] - [address] [address] Snow Foy MA 06/01/2024 Telephone [facility] Neurology [address] [address] Jese Simmons DO Prior Auth - Medication (galcanezumab-gnlm (EMGALITY) 240 MG/ML injection(Loading Dose); galcanezumab-gnlm (EMGALITY) 120 MG/ML injection(Maintenance Dose)-[place] APPROVED ) 06/01/2024 Telephone [facility] Neurology [facility] - [address] [address] Jese Simmons DO Prior Auth - Medication (ubrogepant (UBRELVY) 100 MG tablet- APPROVED ) 05/30/2024 Travel 05/30/2024 1:00 PM CDT Office Visit [facility] Neurology [facility] - [address], [address] [place] [phone] Vasquez Abdullahi MD Giuliani, Charles, DO Intractable migraine with aura with status migrainosus (Primary Dx) 05/29/2024 Telephone [facility] Neurology Clinics - [place] [address] [facility], [address] [place] [phone] Jese Simmons DO 05/27/2024 6:47 PM CDT - 05/28/2024 12:15 AM CDT Emergency [facility] Emergency Dept [address] [place] [phone] Vasquez Abdullahi MD Nonintractable headache, unspecified chronicity pattern, unspecified headache type; Left-sided weakness Discharge Disposition: Home or Self Care 05/27/2024 Travel from Last 3 Months Allergies Active Allergy Reactions Criticality Noted Date Comments [place] Oil 04/27/2018 Other reaction(s): GI Upset [place] Oil 04/27/2018 Other reaction(s): GI Upset Crab [...] as needed for nausea 10 tablet 02/20/20 20 Active predniSONE (DELTASONE) 20 MG tablet Take [...] Active fluticasone (FLONASE) 50 MCG/ACT nasal spray [place] 1 spray into both nostrils daily. 16 [...] a 24 hour.). 10 tablet 11 05/30/20 24 Active galcanezumab-gn lm (EMGALITY) 120 MG/ML injectionIndica tions:Intractab le migraine with aura with status migrainosus Inject 1 mL (120 mg) subcutaneously every 28 days. 1 mL 11 06/29/20 24 Active cetirizine (ZYRTEC) 10 MG tablet Take 10 mg by mouth. 04/26/20 Active diclofenac (VOLTAREN) 1 % topical gel APPLY 2 GRAMS TOPICALLY TO THE AFFECTED AREA FOUR TIMES DAILY 06/15/20 23 Active norethindrone-e thinyl estradiol (MICROGESTIN 09/04) 1-20 MG-MCG tablet Take 1 tablet by mouth daily. Active adalimumab (HUMIRA *CF* PEN) 40 MG/0.4ML pen kit Inject 40 mg subcutaneously. 05/10/20 24 Active albuterol (PROAIR HFA/PROVENTIL HFA/VENTOLIN HFA) 108 (90 Base) MCG/ACT inhaler Inhale 2 puffs into the lungs. 02/24/20 23 Active clonazePAM (KLONOPIN) 0.5 MG tablet Take 0.5 mg by mouth. 03/01/20 24 Active lithium (ESKALITH) 600 MG capsule Take 1 capsule by mouth at bedtime. 02/23/20 24 Active lithium 300 MG capsule 300 mg. 02/23/20 24 Active metFORMIN (GLUCOPHAGE-XR) 750 MG 24 hr tablet Take 750 mg by mouth. Active pregabalin (LYRICA) 75 MG capsule Take 75 mg by mouth. 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 us Vasquez Abdullahi MD [facility] ORDERABLES Final Resul t * (ABNORMAL) RBC and Platelet Morphology (05/27/2024 9:27 PM CDT) [facility] RBC Morphology Confirmed RBC Indices 05/27/2024 10:09 PM CDT LABORATORY Platelet Assessment Automated Count Confirmed. Platelet morphology is normal. Automated Count Confirmed. Platelet morphology is normal. DEEPIKA 05/27/2024 10:09 PM CDT LABORATORY Reactive Lymphocytes Present(A) None Seen DEEPIKA 05/27/2024 10:09 PM CDT LABORATORY Blood BLOOD SPECIMEN / Unknown Venipuncture / Unknown 05/27/2024 9:27 PM CDT 05/27/2024 9:43 PM CDT us Vasquez Abdullahi MD LAB - BLOOD ORDERABLES Final Result LABORATORY [facility] [address] 1[address] floor, [address] [place] [address], [facility] [phone] * (ABNORMAL) CBC with platelets and differential [...] LAB - BLOOD ORDERABLES Final Result LABORATORY [facility] [address] 1[address] floor, [address] [place] [phone], [facility] [phone] * HCG QUALitative (blood) (05/27/2024 9:27 PM CDT) hCG Serum Qualitative Negative Negative DEEPIKA 05/27/2024 9:56 PM CDT LABORATORY Comment:This test is for scr eening purposes. Results should be interpreted along with the clinical picture. Confirmation testing is available if warranted by ordering [id number], HCG Quantitative . Blood BLOOD SPECIMEN / Unknown Venipuncture / Unknown 05/27/2024 9:27 PM CDT 05/27/2024 9:43 PM CDT Vasquez Abdullahi MD LAB - BLOOD ORDERABLES Final Result LABORATORY [facility] [address] 1[address] floor, [address] [place] [address], [facility] [phone] * D dimer quantitative (05/27/2024 9:27 PM CDT) [facility] D-Dimer Quantitative 0.30 0.00 - 0.50 ug/mL FEU 05/27/2024 10:11 PM CDT LABORATORY Blood BLOOD SPECIMEN / Unknown Venipuncture / Unknown 05/27/2024 9:27 PM CDT 05/27/2024 9:43 PM CDT [facility] LABORATORY - 05/27/2024 10:11 PM CDT This D-dimer assay is intended for use in conjunction with a clinical pretest probability assessment model to exclude pulmonary embolism (PE) and deep venous thrombosis (DVT) in outpatients suspected of PE or DVT. The cut-off value is 0.50 ug/mL FEU. Vasquez Abdullahi MD LAB - BLOOD ORDERABLES Final Result LABORATORY [facility] [address], [address] [place] [address], [facility] [phone] * (ABNORMAL) Basic metabolic panel (05/27/2024 9:27 PM CDT) [facility] Sodium 141 135 - 145 mmol/L 05/27/2024 [...] 05/27/2024 10:03 PM CDT LABORATORY Comment:eGFR calculated us2020 CKD-EPI equation. Calcium 8.4(L) 8.8 - 10.4 [...] LAB - BLOOD ORDERABLES Final Result LABORATORY [facility] [address] floor, [address] [place] [address], [facility] [phone] * TSH (02/13/2020 5:40 PM CDT) Pathologist [facility] TSH 1.53 0.40 - 4.00 mU/L 02/16/2020 8:14 AM CDT [facility] Blood specimen (specimen) 02/13/2020 5:40 PM CDT 02/15/2020 2:00 PM CDT Lab Non-Fv Credentialed Provider LAB - BLOOD ORD ERABLES Final Result Performing Organization Address City/[facility]/ZIP Co de Phone Number [facility] [address] [place] [address] * CHLAMYDIA TRACHOMATIS PCR (01/08/2020 4:10 PM CDT) Specimen Description Vagina 01/08/2020 4:12 PM CDT [facility] Chlamydia Trachomatis PCR Negative NEG^Negat gab 01/09/2020 1:59 PM CDT [facility] Comment: Negative for C. trachomatis rRNA by community theater actor mediated amplification. A negative result by community theater actor mediated amplification does not preclude the presence of C. trachomatis infection because results are dependent on proper and adequate collection, absence of inhibitors, and sufficient rRNA to be detected. Specimen from vagina (specimen) 01/08/2020 4:10 PM CDT 01/08/2020 4:11 PM CDT us Keyana Ortiz PA-C LAB - MICRO GENERAL ORDER JOSE Final Result [facility] [address] [place] [address], [facility] [address] [place] [address] from Last 3 Months or Most Recently Relevant to Health Maintenance Insurance [facility] [employer] Advance Directives For more information, please contact: [phone] * Full Code (Latest Code Status on File) Date Activated Date Inactivated Comments 07/23/2017 10:23 PM 07/26/2017 5:52 PM * Full Code Date Activated Date Inactivated Comments 04/29/2017 10:56 PM 05/06/2017 4:51 PM Care Teams Servicing Rep Relationship Specialty Start Date End Date Vane Black PA [address] [place] [address] PCP - General Family Practice 05/12/23 Sukhwinder Gerard MD [address] [address] Gastroenterology 03/08/20 Jese Simmons DO [address] [place] [address] Resident Neurology 05/29/24 Vasquez Abdullahi MD [facility] [address] [place] [address] [place] [id number] Emergency Medicine 05/29/24
--- NOTE | 2024-08-19 08:32 | ED_ITS ---
HPI - Eye Problem General Time Seen by Provider: 08:32 Date Seen: 08/19/24 Chief complaint: Eye Problems Stated complaint: L eye injury/dark spot in vision Time Seen by Provider: 08/19/24 08:31 Source: patient and RN notes reviewed Mode of arrival: ambulatory Limitations: no limitations History of Present Illness HPI Narrative: This 24-year-old female is coming in with concerns of left visual changes after trauma to her eye. She through an ice cube really hard and it ricocheted hitting her back in the left eye. This happened last night. She states she shattered her contact in her eye. Her eye is sore. She notes a darkness in her vision, a dark spot in the left lower visual field. It is worse in the dark, it is less problematic in the light but she still feels there is a visual loss. She sees some bleeding above her eye under the eyelid per her report. Nursing staff did look up her tetanus and is up-to-date on 01/25/2024. She did try to call some of the eye clinics, she knows that some of them are closed in town. chief complaint: eye pain, eye redness, eye injury and vision change Related Data Home Medications ?Medication ?Instructions ?Recorded ?Confirmed albuterol sulfate .Route 05/26/22 clonazepam 0.5 mg tablet 0.5 mg PO PRN 05/26/22 lithium carbonate 300 mg capsule 900 mg PO DAILY 05/26/22 08/19/24 metformin 750 mg tablet,extended 750 mg PO QAM 04/15/24 08/19/24 release 24 hr pregabalin 25 mg capsule 150 mg PO 3XD 04/15/24 08/19/24 suvorexant 10 mg tablet (Belsomra) 10 mg PO QPM PRN 04/15/24 08/19/24 tizanidine 2 mg tablet 4 mg PO QPM 04/15/24 08/19/24 cetirizine 10 mg tablet mg PO 08/19/24 epinephrine 0.3 mg/0.3 mL 0.3 ml IM ONCE PRN anaphylaxis 08/19/24 08/19/24 injection, auto-injector humeria 40 mg IM .Biweekly 08/19/24 08/19/24 norethindorone acetate ethiny 1 tab PO DAILY 08/19/24 08/19/24 norethindrone acetate 1 mg-ethinyl 1 tab PO DAILY 08/19/24 08/19/24 estradiol 20 mcg tablet ubrogepant 100 mg tablet (Ubrelvy) 100 mg PO PRN 08/19/24 Allergies Allergy/AdvReac Type Severity Reaction Status Date / Time mold Allergy Severe Anaphylaxis Verified 08/19/24 08:26 trazodone Allergy Intermediate Verified 08/19/24 08:26 sipnoi Allergy Severe Anaphylaxis Uncoded 08/19/24 08:26 Review of Systems Narrative: As per HPI. PFSH PFS Medical History Allergic reaction to allergy skin test ?T78.49XA - Other allergy, initial encounter (ICD-10) Surgical History History of tonsillectomy (2009) ?Z90.89 - Acquired absence of other organs (ICD-10) History of spinal fusion for scoliosis (2011) ?Z98.1 - Arthrodesis status (ICD-10) ?Z87.39 - Personal history of other diseases of the musculoskeletal system and connective tissue (ICD-10) Family History Mother Thyroid disease Father Asthma Depression Sister Asthma Autism spectrum disorder Maternal Grandfather Depression High cholesterol High blood pressure Maternal Grandmother Depression High cholesterol High blood pressure Other Coronary artery disease Social History Smoking Status: Current every day smoker Do you use any of these nicotine containing products: None and Vaping Products Second hand tobacco smoke exposure: No How often do you have a drink containing alcohol: 2-4 times a month How often do you have six or more drinks on one occasion: Less than monthly AUDIT-C Alcohol total score: 3 Non-prescribed substance use: marijuana (any form) service: No Exam Const: Vital Signs, click to edit/add: Vital Signs - 24 hr 08/19/24 08:17 Temperature 98.3 F Pulse Rate [Pulse Oximeter] 79 Respiratory Rate 16 Blood Pressure [Ri ght Upper Arm] 120/76 Pulse Oximetry 97 Oxygen Delivery Me thod Room Air This 24-year-old female is alert, interactive, no apparent distress. She is observed ambulating back to exam room 4. Pupils are equal round reactive, extraocular muscles intact. She has an area of subconjunctival erythema or hemorrhage on the upper portion just above the iris on top. There is a little bit of erythematous change with increased vascularity but not ciliary flush of this conjunctiva on the left eye. She complains of inferolateral left visual field deficits. Periorbital structures without any ecchymosis, no swelling. Documenting provider has reviewed patient's vital signs: yes Course Course ED Course: Reviewed with patient that she really needs an eye doctor. We were able to get through to [facility], spoke with Dr. Salazar at 8:43 a.m.. He will see her at the [facility] location at 9:15 a.m.. Patient is agreeable to this. Vital Signs Vital signs: Initial Vital Signs Temperature 98.3 F 08/19/24 08:17 Temperature Source Temporal Artery Scan 08/19/24 08:17 Pulse Rate 79 08/19/24 08:17 Respiratory Rate 16 08/19/24 08:17 Blood Pressure 120/76 08/19/24 08:17 Blood Pressure Mean 90 08/19/24 08:17 Blood Pressure Position Sitting 08/19/24 08:17 Pulse Oximetry 97 08/19/24 08:17 Oxygen Delivery Method Room Air 08/19/24 08:17 Vital Signs Temperature 98.3 F 08/19/24 08:17 Pulse Rate 79 08/19/24 08:17 Respiratory Rate 16 08/19/24 08:17 Blood Pressure 120/76 08/19/24 08:17 Pulse Oximetry 97 08/19/24 08:17 Oxygen Delivery Method Room Air 08/19/24 08:17 Temperature 98.3 F 08/19/24 08:17 Pulse Rate 79 08/19/24 08:17 Respiratory Rate 16 08/19/24 08:17 Blood Pressure 120/76 08/19/24 08:17 Pulse Oximetry 97 08/19/24 08:17 Oxygen Delivery Method Room Air 08/19/24 08:17 Discharge Plan Discharge Clinical Impression: Subjective vision disturbance, left Blunt injury, left eye Qualifiers: Encounter type: initial encounter Qualified Code(s): S05.8X2A - Other injuries of left eye and orbit, initial encounter Subconjunctival hematoma Qualifiers: Laterality: left Qualified Code(s): H11.32 - Conjunctival hemorrhage, left eye Patient Disposition: Xfer Other Condition: Stable Additional Instructions: Proceed to the [facility] location at [facility]. Dr. Salazar will plan on seeing you at 9:15 a.m.. Prescriptions: No Action tizanidine 2 mg tablet 4 mg PO QPM metformin 750 mg tablet extended release 24 hr 750 mg PO QAM pregabalin 25 mg capsule 150 mg PO 3XD Belsomra 10 mg tablet 10 mg PO QPM PRN norethindorone acetate ethiny 1 tab PO DAILY Patient Comments: bC cetirizine 10 mg tablet PO norethindrone ac-eth estradiol 1-20 mg-mcg tablet 1 tab PO DAILY epinephrine 0.3 mg/0.3 mL auto-injector 0.3 ml IM ONCE PRN (Reason: anaphylaxis) Ubrelvy 100 mg tablet 100 mg PO PRN humeria 40 mg IM .Biweekly albuterol sulfate .Route clonazepam 0.5 mg tablet 0.5 mg PO PRN lithium carbonate 300 mg capsule 900 mg PO DAILY Patient Comments: TAKE 1 CAPSULE BY MOUTH AT BEDTIME FOR 3 DAYS. THEN INCREASE TO 2 CAPSULES BY MOUTH AT BEDTIME Follow Up/Referrals: Vane Black PA-C [Primary Care Provider] - Stand Alone Forms: [facility] Info Instructions
--- OUTSIDE RECORDS SUMMARY | 2024-08-19 08:52 | XMS_ITS | Clinical Summary ---
Author Organization [facility] Address [place], [place] [address] Care Team Providers Care Fixed Interest Dealer Name Role Phone Sofia Vane ABERNATHY Primary Care Provider [phone] Carson Cardona MD Unavailable [phone] Allergies Active Allergy Reactions Criticality Noted Date Comments [place] GI Upset 08/25/2018 Patient reports immediate stomach pain. [place] Oil GI Upset 04/27/2018 [place] GI Upset 04/27/2018 Patient reports it feels like a rock when I eat it, for 48 hours and I cannot digest it. Crab GI Upset 04/27/2018 Lactose GI Upset 08/25/2018 Patient reports it is severe. [place] Oil Other - Describe In Comment Field [...] Tablet 3 05/16/20 24 Active rizatriptan (MAXALT QUARANTINE OFFICER) 5 mg disintegrating tabletIndications: Concussion without loss [...] per actuation) nasal solution (FLONASE) Inhale 1 [place] into affected nostril(s) once daily. Active tiZANidine [...] (03/18/2022): Added automatically from request for surgery [id number] Anorexia nervosa, restrictin g type, in partial [...] Type Department Care Team Description 08/14/2024 Telephone [facility] [address] [facility] [address] [place] [address] Carson Cardona MD Prior Authorization (adalimumab (Humira,CF, Pen) 40 mg/0.4 mL pnkt Approved 08/14/24-02/10/25) 08/10/2024 3:30 PM CONTACT OFFICER Office Visit [facility] [address] [place], [place] [id number] Karlo Ni MD Occ Med (right shoulder- seeing small improvements ) 08/10/2024 Travel 07/25/2024 11:20 AM CONTACT OFFICER Telemedicine [facility] [address] [place] [address] Tricia Ramírez PA Sinus Problem 07/19/2024 5:50 PM CONTACT OFFICER Ancillary Procedure [facility] [address] [place] [address] 07/19/2024 4:45 PM CONTACT OFFICER Office Visit [facility] [address] [place] [phone] Chris Estrada MD Hip Injury (60 minutes ago, left sided) 07/19/2024 Travel 07/18/2024 3:15 PM CONTACT OFFICER - 07/18/2024 11:59 PM CONTACT OFFICER Hospital Encounter [facility] [address] [facility] [address] [place] [address] Carson Cardona MD Lee, Molly E, PT 07/17/2024 3:05 PM CONTACT OFFICER Office Visit [facility] [address] [place] [address] Karlo Ni MD Shoulder Pain/problem (would like to return to work- pain is not better, but needs to get back to work ) 07/17/2024 Travel 07/12/2024 5:00 PM CONTACT OFFICER - 07/12/2024 11:59 PM CONTACT OFFICER Hospital Encounter [facility] [address] [facility] [address] [place] [address] Carson Cardona MD Lee, Molly E, PT 07/12/2024 Travel 06/23/2024 12:00 PM CONTACT OFFICER [facility] [address] [place] [address] Carol Watts DO Follow Up (Urgent care 06/18/24 Shoulder injury ) 06/23/2024 Travel 06/21/2024 12:40 PM CONTACT OFFICER Office Visit [facility] [address] [place] [address] Carson Cardona MD Follow Up (Ankylosing spondylitis, unspecified site of spine) 06/20/2024 4:15 PM CONTACT OFFICER [facility] [address] [place] [address] Dwight Murphy A, OD Eye Exam (CEE/ocular health exam) 06/20/2024 Travel 06/18/2024 4:50 PM CONTACT OFFICER Office Visit [facility] [address] [place] [address] Sigrid Loja PA Shoulder Pain/problem (Right, x1w) 06/18/2024 Travel 06/09/2024 Telephone [facility] [address] [facility] [address] [place] [address] Asya Owen MD 06/05/2024 2:40 PM CDT Office Visit [facility] [address] [place] [address] Tiana Donato PA Concerns (x12 weeks flu symptoms, rash cheeks and nose ) 06/05/2024 Travel 05/31/2024 Nurse Triage [facility] [address] [place] [address] Vane Black PA Rash 05/27/2024 9:30 AM CDT Ancillary Procedure [facility] [address] [place] [address] 05/27/2024 Nurse Triage [facility] [address] [place] [address] Vane Black PA Head Injury 05/27/2024 Travel 05/25/2024 Refill [facility] [address] [facility] [address] [place] [address] Fareed Eddy MD Refill Request (Norethindrone-ethi nyl Estradiol) 05/22/2024 Travel 05/22/2024 Telephone [facility] [address] [place] [address] Vane Black PA Need Meds 05/22/2024 Telephone [facility] [address] [facility] [address] [place] [address] Asya Owen MD Prior Authorization (atogepant (QULIPTA) 60 mg tablet DENIED) 05/22/2024 Telephone [facility] [address] [facility] [address] [place] [address] Asya Owen MD Concerns (Ongoing headache and weakness) 05/21/2024 4:37 PM CDT - 05/21/2024 6:15 PM CDT Emergency [facility] Emergency Department [address] [place] [address] Malu Brown PA Intractable chronic migraine without [...] drink = 0.6 oz pur e alcohol) [facility] Utilities Answer Date Recorded Do you [...] Sex Assigned at Female 09/15/2023 10:11 AM CONTACT OFFICER Legal Sex Female 4:18 PM CDT Gender Identity Female 09/15/2023 10:11 AM CONTACT OFFICER Sexual Orientation Not on file Occupation Industry Job Start Date Job End Date unemployeed Not on file Not on file 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 on 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[employer] 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 Not on file Not on file Obstetrics History Para Term AB IAB SAB Ectopic Multiple Livin g Live Births 0 0 0 0 0 0 0 0 0 0 0 Last Filed Vital Signs Vital Sign Reading Time Taken Comments Blood Pressure 120/82 08/10/2024 3:32 PM CONTACT OFFICER Pulse 67 08/10/2024 3:32 PM CONTACT OFFICER Temperature 36.1 C (97 F) 07/19/2024 5:17 PM CONTACT OFFICER Respiratory Rate 14 07/19/2024 5:17 PM CONTACT OFFICER Oxygen Saturation 97% 08/10/2024 3:32 PM CONTACT OFFICER Inhaled Oxygen Concentration - - Weight 93 kg (205 lb) 06/18/2024 5:02 PM CONTACT OFFICER Height 170.2 cm (5' 7) 06/21/2024 12:51 PM CONTACT OFFICER Body Mass Index 32.11 05/21/2024 3:45 PM CDT Plan of Treatment Upcoming Encounters Date Type Department Care Team (Late st Contact Info) Description 08/21/2024 10:00 AM CONTACT OFFICER Appointment [facility] [address] [place] [address] [address] [place] [address] Lisette Corona, PT [address] [address] 08/22/2024 2:00 PM CONTACT OFFICER Office Visit [facility] [address] [place] [address] Asya Owen MD [address] [place] [address] 08/28/2024 2:30 PM CONTACT OFFICER Appointment [facility] [address] [place] [address] Lisette Corona, PT [address] [address] 09/04/2024 3:15 PM CONTACT OFFICER Appointment [facility] [address] [place] [address] iLsette Corona, PT [address] [address] 09/07/2024 2:40 PM CONTACT OFFICER Office Visit [facility] [address] [place] [address] Karlo Ni MD [address] [place] [address] 09/11/2024 3:15 PM CONTACT OFFICER Appointment [facility] [address] [place] [address] Lisette Corona, PT [address] [address] Health Maintenance Due Date Last Done Comments [...] W PELVIS RIGHT STAT 07/19/2024 5:54 PM CONTACT OFFICER Right leg pain ANTINUCLEAR ANTIBODY BY IFA Routine 06/21/2024 1:33 PM CONTACT OFFICER Pain in joint of right shoulder SEDIMENTATION RATE Routine 06/21/2024 1: 33 PM CONTACT OFFICER Pain in joint of right shoulder C-REACTIVE PROTEIN Routine 06/21/2024 1: 33 PM CONTACT OFFICER Pain in joint of right shoulder CBC [...] Intractable migraine with aura without status migrainosus TOOL ROOM GEAR MACHINE OPERATOR THIN PREP PAP SCREEN IMAGED Routine 01/25/2024 1:25 PM CDT Screening for malignant neoplasm of cervix ANTI HCV Routine 12/27/2023 9:25 AM CDT Spondyloarthropathy of sacroiliac joint LC HIV-1/O/2, 4TH GENERATION Routine 09/03/2022 5:17 PM CONTACT OFFICER Febrile illness Dysuria from Last 3 Months or Most Recently Relevant to Health Maintenance Results * XR HIP 1 VIEW W PELVIS RIGHT (07/19/2024 5:54 PM CONTACT OFFICER) Anatomical Region Laterality Modality HIPS, HIPR, Pelvis Computed Radi ography 07/19/2024 5:54 PM CONTACT OFFICER Impressions 07/19/2024 6:11 PM CONTACT OFFICER Normal joint spaces and alignment. No fracture. Narrative 07/19/2024 6:11 PM CONTACT OFFICER For Patients: As a result of the Cures Act, medical imaging exams and procedure reports are released immediately into your electronic medical record. You may view this report before your referring provider. If you have questions, please contact your health care provider. EXAM: XR HIP 1 VIEW W PELVIS RIGHT [facility] DATE: 07/19/2024 INDICATION: Right Leg Pain COMPARISON: None. Procedure Note Maggy Falcon MD - 07/19/2024 For Patients: As a result of the Cures Act, medical imagingexams and procedure reports are released immediately into your electronicmedical record. You may view this report before your referring provider.If you have questions, please contact your health care provider. EXAM: XR HIP 1 VIEW W PELVIS RIGHT LOCATION: [facility] DATE: 07/19/2024 INDICATION: Right Leg Pain COMPARISON: None. IMPRESSION: Normal joint spaces and alignment. No fracture. Chris Estrada MD GENERAL IMAGING Final Result * SEDIMENTATION RATE (06/21/2024 1:33 PM CONTACT OFFICER) Pathologist [facility] SED RATE BY MODIFIED SARAIREN 14 < OR = 20 mm/h [facility] Blood BLOOD SPECIMEN / Unknown 06/21/2024 1:33 PM CONTACT OFFICER 06/21/2024 1:34 PM CONTACT OFFICER Carson Cardona MD HEMATOLOGY Final Resul t [employer] [address] [address], [facility] [address] [place] [phone] * ANTINUCLEAR ANTIBODY BY IFA (06/21/2024 1:33 PM CONTACT OFFICER) Pathologist [facility] FELA SCREEN, IFA NEGATIVE NEGATIVE [facility] Comment: FELA IFA is a first line [...] AC-0: Negative International Consensus on FELA Patterns (https://doi.org/10.1515/gcft-2416-6645) For additional information, please refer to http://education.Corindus.Cloudian/faq/ZIX425 (This link is being provided for informational/ educational purposes only.) Blood BLOOD SPECIMEN / Unknown 06/21/2024 1:33 PM CONTACT OFFICER 06/21/2024 1:34 PM CONTACT OFFICER Carson Cardona MD CHEMISTRY Final Resul t Performing Organization Address City/[facility]/ZIP Co de Phone Number [employer] [address] [address], [employer] [address] * (ABNORMAL) C-REACTIVE PROTEIN (06/21/2024 1:33 PM CONTACT OFFICER) Pathologist [facility] C-REACTIVE PROTEIN 8.1(H) <8.0 mg/L [facility] Blood BLOOD SPECIMEN / Unknown 06/21/2024 1:33 PM CONTACT OFFICER 06/21/2024 1:34 PM CONTACT OFFICER Carson Cardona MD CHEMISTRY Final Resul t Performing Organization Address [facility] Co de Phone Number [employer] [address] [address], [employer] [address] * (ABNORMAL) CBC WITH AUTO DIFFERENTIAL (06/05/2024 [...] ABERNATHY HEMATOLOGY Final Result Performing Organization Address City[facility]/ZIP Co de Phone Number [facility] [address] [address], * HETEROPHILE (06/05/2024 3:14 PM CDT) HETEROPHILE, MONO SCREEN NEGATIVE NEGATIVE 06/06/2024 12:35 PM CDT [facility] Blood BLOOD SPECIMEN / Unknown Non-Lab Venipuncture / Unknown 06/05/2024 3:14 PM CDT 06/05/2024 3:15 PM CDT Tiana ABERNATHY HEMATOLOGY Final Result Performing Organization Address [facility] de Phone Number [facility] [address] [address], [place] [phone] * (ABNORMAL) COMP METABOLIC PANEL (06/05/2024 3:14 PM CDT) Pathologist [facility] SODIUM 141 135 - 146 mmol/L 06/06/2024 [...] Tiana ABERNATHY CHEMISTRY Final Result [facility] [address] [place] [address], * [facility] RAD MRI HEAD BRAIN WO LIMITED [...] please contact your health care provider. EXAM: [facility] RAD MRI HEAD BRAIN WO LIMITED LOCATION: [facility] DATE: 05/27/2024 INDICATION: Concussion without loss of consciousness, subsequent encounter. Chronic post-traumatic headache, not intractable. Intractable migraine with aura without status migrainosus. COMPARISON: None. TECHNIQUE: Limited head MRI without contrast. Only telegraph inspector imaging and diagnostic sagittal T1 weighted imaging was acquired. Procedure Note Denny Peterson MD - 05/27/2024 For Patients: As a result of the Cures Act, medical imagingexams and procedure reports are released immediately into your electronicmedical record. You may view this report before your referring provider.If you have questions, please contact your health care provider. EXAM: [facility] RAD MRI HEAD BRAIN WO LIMITED LOCATION: [facility] DATE: 05/27/2024 INDICATION: Concussion without loss of consciousness, subsequentencounter. Chronic post-traumatic headache, not intractable. Intractablemigraine with aura without status migrainosus. COMPARISON: None. TECHNIQUE: Limited head MRI without contrast. Only telegraph inspector imaging anddiagnostic sagittal T1 weighted imaging was acquired. IMPRESSION: Limited exam, terminated early due to reported complaints of spinalhardware warming/movement. Only diagnostic sagittal T1 weighted imagingwas acquired without gross acute abnormality. Asya Owen MD MR Final Re sult * (ABNORMAL) TOOL ROOM GEAR MACHINE OPERATOR THIN PREP PAP SCREEN IMAGED [[id number]] (01/25/2024 1:25 PM CDT) Case Report Gynecologic Cytology Report Case: [id number] Authorizing Provider: Vane Black PA Collected: 01/25/2024 1325 Ordering Location: [facility] Received: 01/25/2024 1409 Clinic First Screen: Jenelle Perry Pathologist: Deandra Herrera MD Specimen: TOOL ROOM GEAR MACHINE OPERATOR ThinPrep Vial Screening, Cervical 02/07/2024 11:04 AM CDT [facility] INTERPRETATION/ RESULT LOW GRADE SQUAMOUS INTRAEPITHELIAL LESION (LSIL)(A) (none) 02/07/2024 11:04 AM T [facility] IMEN ADEQUACY Satisfactory for evaluation Endocervical component present 02/07/2024 11:04 AM CDT [facility] Date of LMP Unknown 02/07/2024 11:04 AM CDT [facility] Last Pap Date 05/30/2020 02/07/2024 11:04 AM CDT [facility] Last Pap Result NIL 11:04 AM CDT [facility] Abnormal Pap or [place] Bx in last 5 years No 02/07/2024 11:04 AM CDT [facility] Menstrual Status Hormonally Suppressed 02/07/2024 11:04 AM T [facility] [place] Bx Done Today No 02/07/2024 11:04 AM T [facility] Additional Information None given 02/07/2024 11:04 AM T [facility] Comment: Cytology is screened at [facility] - [address], [place] [address] and [facility] - [address], [place] [address] and [facility] - [address] [place] [address] Interpreted at [facility] - [address], [place] [address] Automated Review Successful 02/07/2024 11:04 AM T [facility] Comment:Specimen processed s uccessfully by automated cognos consultant device, ThinPrep Imaging System, [employer] Note The pap test is a [...] and malignant lesions. 02/07/2024 11:04 AM CDT [facility] Other (Cervical) Non-Blood / Unknown 01/25/2024 1:25 PM CDT 01/25/2024 2:09 PM CDT us Vane ABERNATHY PATHOLOGY/CYTOLOGY Final Result Performing Organization Address City/[facility]/ZIP Co de Phone Number [facility] [address] [place] [address], [place] * ANTI HCV (12/27/2023 9:25 AM CDT) HEPATITIS C ANTIBODY Non-Reacti ve Non-React gab 12/27/2023 5:26 PM CDT [facility] Comment:Please note, per www [...] OUTS Final Resul t Performing Organization Address [facility] Co de Phone Number [facility] [address] [place] [address], [place] * LC HIV-1/O/2, 4TH GENERATION (09/03/2022 5:17 PM CONTACT OFFICER) HIV Scr 4th Gen Non Reactive Non Reactive 09/09/2022 10:06 PM CONTACT OFFICER [facility] Comment: HIV Negative HIV-1/HIV-2 antibodies and HIV-1 p24 antigen were NOT detected. There is no laboratory evidence of HIV infection. Blood BLOOD SPECIMEN / Unknown Venipuncture / Unknown 09/03/2022 5:17 PM CONTACT OFFICER 09/03/2022 5:23 PM CONTACT OFFICER Narrative [facility] - 09/09/2022 10:06 PM CONTACT OFFICER Performed at: 01 - [facility] [address] [place], [place] [id number] Business Improvement Manager: Anderson Johnson MD, Phone: [phone] us Carmela Arriola MD LABORATORY Final Resul t [facility] [place] [address], [place] from Last 3 Months or Most Recently Relevant to Health Maintenance Insurance [facility] AUTO BED OPERATOR INSURANCE [facility] SERVICES Advance Directives * Full Code (Latest Code Status on File) Date Activated Date Inactivated Comments 02/14/2024 8:57 AM 02/14/2024 9:15 PM Question Answer Comments Code Status Discussion: Reviewed Preferences * Full Code Date Activated Date Inactivated Comments 04/14/2023 12:27 PM 04/14/2023 5:32 PM Question Answer Comments Code Status Discussion: Discussed Care Teams Fixed Interest Dealer Relationship Specialty Start Date End Date Vane Black PA [facility] [place] [address] PCP - General Physician Flight/Transport Nurse 02/15/23 Carson Cardona MD [address] [facility] [address] [place] [address] Rheumatology 03/20/24
--- OUTSIDE RECORDS SUMMARY | 2024-08-19 08:52 | XMS_ITS | Encounter Summary ---
Author Organization [place] Address [address] [place] [address]. [place] [address] Care Team Providers Care Inventory Accountant Name Role Phone Sukhwinder Gerard MD Unavailable [phone] Vane Black Primary Care Provider [phone] Jese Simmons DO Unavailable [phone] Vasquez Abdullahi MD Unavailable [phone] Encounter Details Date Type Department Care Team (Late st Contact Info) Description 06/06/2024 MyC Medical Advice [facility] Neurology [facility] - [address], [address] [place] [address] Snow Foy MA Social History [...] on file Legal Sex Female 4:47 AM RAG COLLECTOR Gender Identity Not on file Sexual Orientation Not on file documented as of this encounter Plan of Treatment Upcoming Encounters Date Type Department Care Team (Late st Contact Info) Description 08/22/2024 4:15 PM RAG COLLECTOR Office Visit [facility] Neurology [facility] - [address], [address] [place] [id number] Jese Simmons DO [address] [place] [address] documented as of this encounter Visit Diagnoses Not on filedocumented in this encounter Additional Health Concerns Assessment Noted Time PHQ-9 Depression Total Score: 26 020 3:00 PM CDT documented as of this encounter Care Teams Inventory Accountant Relationship Specialty Start Date End Date Vane Black PA [address] [place] [address] PCP - General Family Practice 05/12/23 Sukhwinder Gerard MD [address] [phone] Gastroenterology 03/08/20 Jese Simmons DO [address] [place], [place] [address] Resident Neurology 05/29/24 Vasquez Abdullahi MD [facility] [address] [place] [address] Emergency Medicine 05/29/24 documented as of this encounter
--- OUTSIDE RECORDS SUMMARY | 2024-08-19 08:52 | XMS_ITS | Encounter Summary ---
Author Organization [address] Address [facility] [place] [address] Care Team Providers Care Tar Roofer Name Role Phone Marilou Quigley MD Primary Care Provider Lola LaurentC Unavailable [phone] Lucy Valverde MD Unavailable [phone] Sukhwinder Gerard MD Unavailable [phone] Sukhwinder Gerard MD Unavailable [phone] Vane Hua APRN LINE ORDERING CLINICIAN Unavailable Unavai Lucy Gonzales MD Unavailable [phone] Lucy Valverde MD Unavailable [phone] Vane Hua PLANT CONTROLLER LINE ORDERING CLINICIAN Unavailable Unavai Vane Arroyo Primary Care Provider [phone] Jese Simmons DO Unavailable [phone] Vasquez Abdullahi MD Unavailable [phone] Reason for Visit * Reason Onset Date Comments Mental Health Problem 04/29/2017 Encounter Details Date Type Department Care Team ([facility] Contact Info) Description 04/29/2017 Telephone [facility] Intake [address] [place] [address] Generic, Behavioral IntakeMD Mental Health Problem Social History Tobacco Use Types Packs/Day Years Used Date Smoking Tobacco: Never Alcohol Use Standard Drinks/Week Comments No 0 (1 standard drink = 0.6 oz pur e alcohol) Comments No Sex and Gender Information Value Date Recorded Sex Assigned at Not on file Legal Sex Female 4:47 AM EVS TECH Gender Identity Not on file Sexual Orientation Not on file documented as of this encounter Miscellaneous Notes * Telephone Encounter - Scott Saxena - 04/29/2017 5:53 PM CDT S: [facility] called to place a 17 yr old female for inpatient mental health treatment. B: Pt was BIB parents to the [facility] ED due to suicidal ideation with a [...] st Contact Info) Description 08/22/2024 4:15 PM EVS TECH Office Visit [facility] - [address], [address] [place] [address] Jese Simmons, DO [address] [place] [address] documented as of this encounter Visit Diagnoses Not on filedocumented in this encounter Additional Health Concerns Infection Onset Date Last Indicated Resolved Time Rule Out COVID-19 02/27/2020 02/27/2020 02/28/2020 2:25 PM CDT documented as of this encounter Care Teams Tar Roofer Relationship Specialty Start Date End Date Marilou Quigley MD [facility] [address] [place] [address] PCP - General 04/29/17 05/11/23 Vane Black PA [address] [place] [address] PCP - General Family Practice 05/12/23 Lola Laurent PA-C [address] [place], [place] [id number] Assigned PCP 09/23/19 11/18/19 Lucy Valverde MD [address] [place] [address] 673731 Assigned PCP 11/19/19 11/16/20 Sukhwinder Gerard MD [address] [place] [address] [address] [place], [place] [id number] Gastroenterology 03/08/20 Sukhwinder Gerard MD [place] [facility] [address] [address] [place], [place] [id number] Assigned Gastroenterology Provider 06/07/20 09/06/21 Vane Hua APRN LINE ORDERING CLINICIAN Assigned PCP 11/17/20 02/27/21 Lucy Valverde MD [address] [place], [place] 8[address] Assigned PCP 02/28/21 07/31/22 Lucy Valverde MD [address] [place] [address] Assigned PCP 10/10/22 11/13/22 Vane Hua APRN LINE ORDERING CLINICIAN Assigned PCP 11/14/22 02/19/23 Jese Simmons DO [address] [place] [address] Resident Neurology 05/29/24 Vasquez Abdullahi MD [facility] [address] [place] [address] Emergency Medicine 05/29/24 documented as of this encounter
--- OUTSIDE RECORDS SUMMARY | 2024-08-19 08:52 | XMS_ITS | Encounter Summary ---
Author Organization [place] Address [facility] [place] [address] Care Team Providers Care Hanging Flags Decorator Name Role Phone Sukhwinder Gerard MD Unavailable [phone] Vane Black Primary Care Provider [phone] Jese Simmons DO Unavailable [phone] Vasquez Abdullahi MD Unavailable [phone] Reason for Visit * Reason Onset Date Comments Prior Auth - Medication 06/01/2024 galcanez umab-gnlm (EMGALITY) 240 MG/ML injection(Loading Dose); galcanezumab-gnlm (EMGALITY) 120 MG/ML injection(Maintenance Dose)-[place] APPROVED Encounter Details Date Type Department Care Team (Late st Contact Info) Description 06/01/2024 Telephone [facility] [address], [address] [place] [address] Jese Simmons DO [address] [place], [place] [phone] Prior Auth - Medication (galcanezumab-gnlm (EMGALITY) 240 [...] on file Legal Sex Female 4:47 AM PLASTICS PROCESS HAND Gender Identity Not on file Sexual Orientation [...] injection(Maintenance Dose)-[place] APPROVED Approved Dose/Quantity: Reference #: Fitsistant: [facility] [phone] Expected CoPay: CoPay Card Available: Foundation Assistance Needed: Which Pharmacy is filling the prescription (Not needed for infusion/clinic administered): [email or web address] #[id number] - [place], [place] - [address] [facility] Pharmacy Notified: Yes- Instructed pharmacy to notify patient when script is ready to knot picker cloth/ship. Patient Notified: Yes * Telephone Encounter - Baron Pacheco - 06/05/2024 12:36 PM CDT Images from the original note were not included. Central Prior Authorization Team PA Initiation Medication: galcanezumab-gnlm (EMGALITY) 240 MG/ML injection(Loading Dose); galcanezumab-gnlm (EMGALITY) 120 MG/ML injection(Maintenance Dose) Insurance ReelBig: [facility] [phone] Pharmacy Filling the Rx: [facility] #[id number] - [place] - [address] [facility] [address] [...] Information Preferred routing pool for dept communication: [facility] ([place]) Primary Visit Coverage Payer Plan Sponsor Code Group Number Group Name WORK [employer] 2005 Primary Visit Coverage Subscriber ID Name [employer] [facility] [facility] Address [id number] [id number] [place] [address] Secondary Visit Coverage Payer Plan Sponsor Code Group Number Group Name [facility] [id number] Secondary Visit Coverage Subscriber ID Name [employer] [facility] [facility] Address [id number] MICKY ANGULO [id number] [place] [address] documented in this encounter Plan of Treatment Upcoming Encounters Date Type Department Care Team (Late st Contact Info) Description 08/22/2024 4:15 PM PLASTICS PROCESS HAND Office Visit [facility] - [address], [address] [place] [address] Jese Simmons DO [address] [place], [place] [address] documented as of this encounter Visit Diagnoses Not on filedocumented in this encounter Additional Health Concerns Assessment Noted Time PHQ-9 Depression Total Score: 26 020 3:00 PM CDT documented as of this encounter Care Teams Hanging Flags Decorator Relationship Specialty Start Date End Date Vane Black PA [address] [place] [address] PCP - General Family Practice 05/12/23 Sukhwinder Gerard MD [address] [place] [address] Gastroenterology 03/08/20 Jese Simmons DO [address] [place] [address] Resident Neurology 05/29/24 Vasquez Abdullahi MD [facility] [address] [place], [place] [address] Emergency Medicine 05/29/24 documented as of this encounter
--- OUTSIDE RECORDS SUMMARY | 2024-08-19 08:52 | XMS_ITS | Clinical Summary ---
Author Organization [place] Address [address] [place] [address] Care Team Providers Care Chalk Tester Name Role Phone Sukhwinder Gerard MD Unavailable Vane Black Primary Care Provider [phone] Jese Simmons DO Unavailable [phone] Vasquez Abdullahi MD Unavailable [phone] Allergies Active Allergy Reactions Criticality Noted Date Comments [place] Oil 04/27/2018 Other reaction(s): GI Upset [place] Oil 04/27/2018 Other reaction(s): GI Upset Crab [...] Active fluticasone (FLONASE) 50 MCG/ACT nasal spray [place] 1 spray into both nostrils daily. 16 [...] Take 75 mg by mouth. Active rizatriptan (MAXALT-WILDLIFE MANAGEMENT PROFESSOR) 5 MG ODT DISSOLVE 1 TABLET ON [...] (05/31/2024): Added automatically from request for surgery [id number] Added automatically from request for surgery [id number] Added automatically from request for surgery [id number] Anorexia nervosa, restrictin g type, in partial [...] Care Team Description 06/06/2024 MyC Medical Advice [facility] - [address], [address] [place] [phone] Snow Foy MA 06/01/2024 Telephone [facility] - [address], [address] [place] [address] Jese Simmons DO Prior Auth - Medication (galcanezumab-gnlm (EMGALITY) 240 MG/ML injection(Loading Dose); galcanezumab-gnlm (EMGALITY) 120 MG/ML injection(Maintenance Dose)-DC APPROVED ) 06/01/2024 Telephone [facility] - [address] [place] [address] Jese Simmons DO Prior Auth - Medication (ubrogepant (UBRELVY) 100 MG tablet- APPROVED ) 05/30/2024 1:00 PM CDT Office Visit [facility] - [address] [address] Vasquez Abdullahi MD Giuliani, Charles, DO Intractable migraine with aura with status migrainosus (Primary Dx) 05/30/2024 Travel 05/29/2024 Telephone [facility] - [address] [address] Jese Simmons DO 05/27/2024 6:47 PM CDT - 05/28/2024 12:15 AM CDT Emergency [facility] Emergency Dept [address] [place] [address] Vasquez Abdullahi MD Nonintractable headache, unspecified chronicity [...] on file Legal Sex Female 4:47 AM BLOOD BANK CREDIT CLERK Gender Identity Not on file Sexual Orientation [...] st Contact Info) Description 08/22/2024 4:15 PM BLOOD BANK CREDIT CLERK Office Visit [facility] [address], [address] [place] [address] TroyJese lozano, DO [address] [place], [place] [address] Health Maintenance Due Date Last Done Comments [...] CDT EXAM: CT HEAD W/O CONTRAST LOCATION: [facility] DATE: 05/27/2024 INDICATION: left sided weakness (subjective), [...] 05/27/2024 EXAM: CT HEAD W/O CONTRAST LOCATION: [facility] DATE: 05/27/2024 INDICATION: left sided weakness (subjective), [...] Normal head CT. us Vasquez Abdullahi MD [facility] CT ORDERABLES Final Resul t * (ABNORMAL) RBC and Platelet Morphology (05/27/2024 9:27 PM CDT) Pathologist [facility] RBC Morphology Confirmed RBC Indices 05/27/2024 10:09 PM CDT LABORATORY Platelet Assessment Automated Count Confirmed. Platelet morphology is normal. Automated Count Confirmed. Platelet morphology is normal. [place] 05/27/2024 10:09 PM CDT LABORATORY Reactive Lymphocytes Present(A) None Seen [facility] 05/27/2024 10:09 PM CDT LABORATORY Blood BLOOD SPECIMEN / Unknown Venipuncture / Unknown 05/27/2024 9:27 PM CDT 05/27/2024 9:43 PM CDT us Vasquez Abdullahi MD LAB - BLOOD ORDERABLES Final Result LABORATORY [facility] [address] floor, [address] [place] [address], [facility] [phone] * (ABNORMAL) CBC with platelets and differential [...] LAB - BLOOD ORDERABLES Final Result LABORATORY [facility] [address] floor, [address] [place] [address], [facility] [phone] * HCG QUALitative (blood) (05/27/2024 9:27 PM CDT) hCG Serum Qualitative Negative Negative [place] 05/27/2024 9:56 PM CDT LABORATORY Comment:This test is for scr eening purposes. Results should be interpreted along with the clinical picture. Confirmation testing is available if warranted by ordering [id number], HCG Quantitative . Blood BLOOD SPECIMEN / Unknown Venipuncture / Unknown 05/27/2024 9:27 PM CDT 05/27/2024 9:43 PM CDT Vasquez Abdullahi MD LAB - BLOOD ORDERABLES Final Result LABORATORY [facility] Lab [address] floor, [address] [place] [address], [facility] [phone] * D dimer quantitative (05/27/2024 9:27 PM CDT) [facility] D-Dimer Quantitative 0.30 0.00 - 0.50 ug/mL FEU 05/27/2024 10:11 PM CDT LABORATORY Blood BLOOD SPECIMEN / Unknown Venipuncture / Unknown 05/27/2024 9:27 PM CDT 05/27/2024 9:43 PM CDT [facility] LABORATORY - 05/27/2024 10:11 PM CDT This D-dimer assay is intended for use in conjunction with a clinical pretest probability assessment model to exclude pulmonary embolism (PE) and deep venous thrombosis (DVT) in outpatients suspected of PE or DVT. The cut-off value is 0.50 ug/mL FEU. Vasquez Abdullahi MD LAB - BLOOD ORDERABLES Final Result LABORATORY [facility] [address] floor, [address] [place] [address], [facility] [phone] * (ABNORMAL) Basic metabolic panel (05/27/2024 9:27 PM CDT) [facility] Sodium 141 135 - 145 mmol/L 05/27/2024 [...] LAB - BLOOD ORDERABLES Final Result LABORATORY [facility] [address] floor, [address] [place] [address], [facility] [phone] * TSH (02/13/2020 5:40 PM CDT) [facility] TSH 1.53 0.40 - 4.00 mU/L 02/16/2020 8:14 AM CDT [place] Blood specimen (specimen) 02/13/2020 5:40 PM CDT 02/15/2020 2:00 PM CDT Lab Non-Fv Credentialed Provider LAB - BLOOD ORD ERABLES Final Result Performing Organization Address [facility]/ZIP Co de Phone Number [place] [address] [place] [address] * CHLAMYDIA TRACHOMATIS PCR (01/08/2020 4:10 PM CDT) Pathologist [facility] Specimen Description Vagina 01/08/2020 4:12 PM CDT [facility] Chlamydia Trachomatis PCR Negative NEG^Negat gab 01/09/2020 1:59 PM CDT [facility] Comment: Negative for C. trachomatis rRNA by hand picker mediated amplification. A negative result by hand picker mediated amplification does not preclude the presence of C. trachomatis infection because results are dependent on proper and adequate collection, absence of inhibitors, and sufficient rRNA to be detected. Specimen from vagina (specimen) 01/08/2020 4:10 PM CDT 01/08/2020 4:11 PM CDT us Keyana Ortiz PA-C LAB - MICRO GENERAL ORDER JOSE Final Result [facility] [address] [place], [place] [address] [address] [place] [address] from Last 3 Months or Most Recently Relevant to Health Maintenance Insurance [facility] NONE (Work) [address] [place] [address] NONE (Work) [address] [place] [address] [employer] Advance Directives For more information, please contact: [phone] * Full Code (Latest Code Status on File) Date Activated Date Inactivated Comments 07/23/2017 10:23 PM 07/26/2017 5:52 PM * Full Code Date Activated Date Inactivated Comments 04/29/2017 10:56 PM 05/06/2017 4:51 PM Care Teams Chalk Tester Relationship Specialty Start Date End Date Vane Black PA [address] [place] [address] PCP - General Family Practice 05/12/23 Sukhwinder Gerard MD [address] [address] Gastroenterology 03/08/20 Jese Simmons DO [address] [place] [address] Resident Neurology 05/29/24 Vasquez Abdullahi MD [facility] [address] [place] [id number] Emergency Medicine 05/29/24
--- OUTSIDE RECORDS SUMMARY | 2024-08-19 08:52 | XMS_ITS | Referral Summary ---
Author Organization [facility] Address [address] [place] [address] Care Team Providers Care Warrant Clerk Name Role Phone Vane Fish APRN, CNP Primary Care [facility] Unavailable Unavailable Allergies No known active allergies [...] 175.3 cm (5' 9) 10/20/2019 8:33 PM OCCUPATIONAL ANALYST Body Mass Index - - Plan of Treatment Not on file Care Teams Warrant Clerk Relationship Specialty Start Date End Date Vane Fish APRN, VP SOFTWARE SUPPORT PCP - General Nurse Practitioner 03/24/20 [facility] PCP - Primary Care Clinic Family Medicine 03/25/20
--- OUTSIDE RECORDS SUMMARY | 2024-08-19 08:52 | XMS_ITS | Referral Summary ---
Author Organization [place] Address [facility] [place] [address] Care Team Providers Care Layer Off Name Role Phone Sukhwinder Gerard MD Unavailable [phone] Vane Black Primary Care Provider [phone] Jese Simmons DO Unavailable [phone] Vasquez Abdullahi MD Unavailable [phone] Encounters Date Type Department Care Team Description 06/06/2024 MyC Medical Advice [facility] Neurology [facility] - [address] [address] Snow Foy MA 06/01/2024 Telephone [facility] Neurology [address] [address] Jese Simmons DO Prior Auth - Medication (galcanezumab-gnlm (EMGALITY) 240 MG/ML injection(Loading Dose); galcanezumab-gnlm (EMGALITY) 120 MG/ML injection(Maintenance Dose)-[place] APPROVED ) 06/01/2024 Telephone [facility] Neurology [facility] - [address] [address] Jese Simmons DO Prior Auth - Medication (ubrogepant (UBRELVY) 100 MG tablet- APPROVED ) 05/30/2024 Travel 05/30/2024 1:00 PM CDT Office Visit [facility] Neurology [facility] - [address], [address] [place] [phone] Vasquez Abdullahi MD Giuliani, Charles, DO Intractable migraine with aura with status migrainosus (Primary Dx) 05/29/2024 Telephone [facility] Neurology Clinics - [place] [address] [facility], [address] [place] [address] Jese Simmons DO 05/27/2024 6:47 PM CDT - 05/28/2024 12:15 AM CDT Emergency [facility] Emergency Dept [address] [place] [phone] Vasquez Abdullahi MD Nonintractable headache, unspecified chronicity pattern, unspecified headache type; Left-sided weakness Discharge Disposition: Home or Self Care 05/27/2024 Travel from Last 3 Months Allergies Active Allergy Reactions Criticality Noted Date Comments [place] Oil 04/27/2018 Other reaction(s): GI Upset [place] Oil 04/27/2018 Other reaction(s): GI Upset Crab [...] Active fluticasone (FLONASE) 50 MCG/ACT nasal spray [place] 1 spray into both nostrils daily. 16 [...] Take 75 mg by mouth. Active rizatriptan (MAXALT-RAILWAY TRACK WORKER) 5 MG ODT DISSOLVE 1 TABLET ON [...] (05/31/2024): Added automatically from request for surgery [id number] Added automatically from request for surgery [id number] Added automatically from request for surgery [id number] Anorexia nervosa, restrictin g type, in partial [...] on file Legal Sex Female 4:47 AM PEARL TECHNICIAN Gender Identity Not on file Sexual Orientation [...] st Contact Info) Description 08/22/2024 4:15 PM PEARL TECHNICIAN Office Visit [facility] Neurology [address], [address] [place] [address] Jese Simmons, DO [address] [place] [address] Procedures Procedure Name Priority Date/Time Associated Diagnosis [...] CDT EXAM: CT HEAD W/O CONTRAST LOCATION: [facility] DATE: 05/27/2024 INDICATION: left sided weakness [...] 05/27/2024 EXAM: CT HEAD W/O CONTRAST LOCATION: [facility] DATE: 05/27/2024 INDICATION: left sided weakness [...] Normal head CT. us Vasquez Abdullahi MD [facility] CT ORDERABLES Final Resul t * (ABNORMAL) RBC and Platelet Morphology (05/27/2024 9:27 PM CDT) [facility] RBC Morphology Confirmed RBC Indices 05/27/2024 10:09 [...] LAB - BLOOD ORDERABLES Final Result LABORATORY [facility] [address] 1st floor, Room [address] [place] [address], [facility] [phone] * (ABNORMAL) CBC with platelets and differential [...] LAB - BLOOD ORDERABLES Final Result LABORATORY [facility] Lab [address] 1[address] floor, [address] [place] [phone], [facility] [phone] * HCG QUALitative (blood) (05/27/2024 9:27 PM CDT) hCG Serum Qualitative Negative Negative DEEPIKA 05/27/2024 9:56 PM CDT LABORATORY Comment:This test is for scr eening purposes. Results should be interpreted along with the clinical picture. Confirmation testing is available if warranted by ordering [id number], HCG Quantitative . Blood BLOOD SPECIMEN / Unknown Venipuncture / Unknown 05/27/2024 9:27 PM CDT 05/27/2024 9:43 PM CDT Vasquez Abdullahi MD LAB - BLOOD ORDERABLES Final Result LABORATORY [facility] Lab [address] 1st floor, Room [address] [place] [address], [facility] [phone] * D dimer quantitative (05/27/2024 9:27 PM CDT) [facility] D-Dimer Quantitative 0.30 0.00 - 0.50 ug/mL FEU 05/27/2024 10:11 PM CDT LABORATORY Blood BLOOD SPECIMEN / Unknown Venipuncture / Unknown 05/27/2024 9:27 PM CDT 05/27/2024 9:43 PM CDT [facility] LABORATORY - 05/27/2024 10:11 PM CDT This D-dimer assay is intended for use in conjunction with a clinical pretest probability assessment model to exclude pulmonary embolism (PE) and deep venous thrombosis (DVT) in outpatients suspected of PE or DVT. The cut-off value is 0.50 ug/mL FEU. Vasquez Abdullahi MD LAB - BLOOD ORDERABLES Final Result LABORATORY [facility] [address] 1[address] floor, [address] [place] [address], [facility] [phone] * (ABNORMAL) Basic metabolic panel (05/27/2024 9:27 PM CDT) [facility] Sodium 141 135 - 145 mmol/L 05/27/2024 [...] LAB - BLOOD ORDERABLES Final Result LABORATORY [facility] [address] 1st floor, Room [address] [place] [address], [facility] [phone] * TSH (02/13/2020 5:40 PM CDT) Pathologist [facility] TSH 1.53 0.40 - 4.00 mU/L 02/16/2020 8:14 AM CDT [facility] Blood specimen (specimen) 02/13/2020 5:40 PM CDT 02/15/2020 2:00 PM CDT Lab Non-Fv Credentialed Provider LAB - BLOOD ORD ERABLES Final Result Performing Organization Address City/[facility]/ZIP Co de Phone Number [facility] [address] [place] [address] * CHLAMYDIA TRACHOMATIS PCR (01/08/2020 4:10 PM CDT) Specimen Description Vagina 01/08/2020 4:12 PM CDT [facility] Chlamydia Trachomatis PCR Negative NEG^Negat gab 01/09/2020 1:59 PM CDT [facility] Comment: Negative for C. trachomatis rRNA by armed guard mediated amplification. A negative result by armed guard mediated amplification does not preclude the presence of C. trachomatis infection because results are dependent on proper and adequate collection, absence of inhibitors, and sufficient rRNA to be detected. Specimen from vagina (specimen) 01/08/2020 4:10 PM CDT 01/08/2020 4:11 PM CDT us Keyana Ortiz PA-C LAB - MICRO GENERAL ORDER JOSE Final Result [facility] [address] [place] [address], [facility] [address] [place] [address] from Last 3 Months or Most Recently Relevant to Health Maintenance Insurance [facility] [employer] Advance Directives For more information, please contact: [phone] * Full Code (Latest Code Status on File) Date Activated Date Inactivated Comments 07/23/2017 10:23 PM 07/26/2017 5:52 PM * Full Code Date Activated Date Inactivated Comments 04/29/2017 10:56 PM 05/06/2017 4:51 PM Care Teams Layer Off Relationship Specialty Start Date End Date Vane Black PA [address] [place] [address] PCP - General Family Practice 05/12/23 Sukhwinder Gerard MD [address] [address] Gastroenterology 03/08/20 Jese Simmons DO [address] [place] [address] Resident Neurology 05/29/24 Vasquez Abdullahi MD [facility] [address] [place] [address] Emergency Medicine 05/29/24
--- OUTSIDE RECORDS SUMMARY | 2024-08-19 08:52 | XMS_ITS | Encounter Summary ---
Author Organization [place] Address [address] [place] [address]. [place] [address] Care Team Providers Care Supervisor Tower Name Role Phone Sukhwinder Gerard MD Unavailable Vane Black Primary Care Provider [phone] Jese Simmons DO Unavailable [phone] Vasquez Abdullahi MD Unavailable [phone] Reason for Visit * Reason Onset Date Comments Prior Auth - Medication 06/01/2024 ubrogepa nt (UBRELVY) 100 MG tablet- APPROVED Encounter Details Date Type Department Care Team (Late st Contact Info) Description 06/01/[address] [facility] Neurology [address], [address] [place] [address] Jese Simmons DO [address] [place] [address] Prior Auth - Medication (ubrogepant [...] on file Legal Sex Female 4:47 AM HAND SINGER Gender Identity Not on file Sexual Orientation [...] Expiration Date: 06/05/2025 Approved Dose/Quantity: Reference #: WHI Solution: [employer] [phone] Expected CoPay: $ CoPay Card Available: Financial Assistance Needed: Which Pharmacy is filling the prescription: [id number] - [place] - [address] [facility] Pharmacy Notified: Yes Patient Notified: No * Telephone Encounter - Peter Benedict - 06/05/2024 10:28 AM CDT Images from the original note were not included. Central Prior Authorization Team PA Initiation Medication: UBRELVY 100 MG PO TABS Insurance Company: [employer] [phone] Pharmacy Filling the Rx: [facility] #[id number] - [place], [place] - [address] [facility] Filling Pharmacy Filling Pharmacy Start Date: [...] Information Preferred routing pool for dept communication: [facility] Neurology [place] NGO: [id number] Primary Visit Coverage Payer Plan Sponsor Code Group Number Group Name WORK [employer] 2005 Primary Visit Coverage Subscriber ID Name N Address [id number] [id number] [place] [address] Secondary Visit Coverage Payer Plan Sponsor Code Group Number Group Name [facility] [id number] Secondary Visit Coverage Subscriber ID Name SSN Address [id number] MICKY ANGULO [id number] [facility] [address] [place] [address] documented in this encounter Plan of Treatment Upcoming Encounters Date Type Department Care Team (Late st Contact Info) Description 08/22/2024 4:15 PM HAND SINGER Office Visit [facility] Neurology Clinics [address], [address] [place] [address] Jese Simmons, DO [address] [place], [place] [address] documented as of this encounter Visit Diagnoses Not on filedocumented in this encounter Additional Health Concerns Assessment Noted Time PHQ-9 Depression Total Score: 26 02/19/ 020 3:00 PM CDT documented as of this encounter Care Teams Supervisor Tower Relationship Specialty Start Date End Date Vane Black PA [address] [place] [address] PCP - General Family Practice 05/12/23 Sukhwinder Gerard MD [address] [place] [address] [address] [place] [address] Gastroenterology 03/08/20 Jese Simmons DO [address] [place] [address] Resident Neurology 05/29/24 Vasquez Abdullahi MD [facility] [address] [place] [address] Emergency Medicine 05/29/24 documented as of this encounter
--- OUTSIDE RECORDS SUMMARY | 2024-08-19 08:52 | XMS_ITS | Clinical Summary ---
Author Organization [facility] Address [address] [place] [address] Care Team Providers Care Composing Machine Operator Name Role Phone Vane Fish APRN, CNP Primary Care [facility] Unavailable Unavailable Allergies No known active allergies [...] 175.3 cm (5' 9) 10/20/2019 8:33 PM LINING STRAP CLOSER Body Mass Index - - Plan of [...] Vaccine Completed 12/14/2014, 06/17, 04/20/2014 Care Teams Composing Machine Operator Relationship Specialty Start Date End Date Vane Fish APRN, HOME HEALTH NURSE LICENSED PRACTICAL PCP - General Nurse Practitioner 03/24/20 [place] [facility] PCP - Primary Care Clinic Family Medicine 03/25/20
--- OUTSIDE RECORDS SUMMARY | 2024-08-19 08:52 | XMS_ITS | Encounter Summary ---
Author Organization [facility] Address [address] [place] [address] Care Team Providers Care Registered Public Health Nurse Name Role Phone Lucy Valverde MD Primary Care Provider [phone] Marilou Quigley MD Primary Care Provider [phone] Lola Laurent PA-C Unavailable Lucy Valverde MD Unavailable Sukhwinder Gerard MD Unavailable Sukhwinder Gerard MD Unavailable [phone] Vane Hua APRN DETENTION WORKER Unavailable Unavai Lucy Gonzales MD Unavailable [phone] Lucy Valverde MD Unavailable Vane Hua APRN DETENTION WORKER Unavailable Unavai Vane Arroyo Primary Care Provider [phone] Jese Simmons DO Unavailable Vasquez Abdullahi MD Unavailable Encounter Details Date Type Department Care Team (Late st Contact Info) Description 10/04/2007 Abstract [facility] [address] [place] [address] Lucy Valverde MD [address] [facility] [place] [address] Social History Tobacco Use Types Packs/Day Years Used Date Smoking Tobacco: Never Assessed Comments Unknown Sex and Gender Information Value Date Recorded Sex Assigned at Not on file 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 Gender Identity Not on file Sexual Orientation Not on file documented as of this encounter Plan of Treatment Upcoming Encounters Date Type Department Care Team (Late st Contact Info) Description 08/22/2024 4:15 PM COLD ROLLING SUPERVISOR Office Visit [facility] Neurology [facility] - [address], [address] [place] [address] Jese Simmons, [address] [place] [address] documented as of this encounter Visit Diagnoses Not on filedocumented in this encounter Additional Health Concerns Infection Onset Date Last Indicated Resolved Time Rule Out COVID-19 02/27/2020 02/27/2020 02/28/2020 2:25 PM CDT documented as of this encounter Care Teams Registered Public Health Nurse Relationship Specialty Start Date End Date Lucy Valverde MD [address] [place] [address] PCP - General 08/23/07 04/28/17 Marilou Quigley MD [facility] [address], [place] [address] PCP - General 04/29/17 05/11/23 Vane Black PA [address] [place] [address] PCP - General Family Practice 05/12/23 Lola Laurent PA-C [address] [place] [address] Assigned PCP 09/23/19 11/18/19 Lucy Valverde MD [address] [place] [address] Assigned PCP 11/19/19 11/16/20 Sukhwinder Gerard MD [address] [place] [address] 36 [place] [address] Gastroenterology 03/08/20 Sukhwinder Gerard MD [facility] [address] [address] [place] [address] Assigned Gastroenterology Provider 06/07/20 09/06/21 Vane Hua APRN DETENTION WORKER Assigned PCP 11/17/20 02/27/21 Lucy Valverde MD [address] [facility] [place] [address] Assigned PCP 02/28/21 07/31/22 Lucy Valverde MD [address] [facility] [place] [address] Assigned PCP 10/10/22 11/13/22 Vane Hua APRN DETENTION WORKER Assigned PCP 11/14/22 02/19/23 Jese Simmons DO [address] [place] [address] Resident Neurology 05/29/24 Vasquez Abdullahi MD [facility] [place] [address] [place] [address] Emergency Medicine 05/29/24 documented as of this encounter
--- OUTSIDE RECORDS SUMMARY | 2024-08-19 08:53 | XMS_ITS | Continuity of Care Document ---
Author Name [facility] User [email or web address] Address Unknown Organization Unknown Address Unknown Procedures FILTER APPLIED:Only known Procedures with Onset Date within the last 5 years Procedure Date Procedure Provider Additiona l Information Status URINE CULTURE (88083) Co mpleted ,SERUM (39737) Completed COMP METABOLIC PANEL (67138) Completed CBC AND DIFFERENTIAL (72274) Completed LIPASE (34426) Completed HEPATIC FUNCTION PANEL (74797) Completed UA W/ SEDIMENT EXAM REFLEXED PER CRITERIA (62556) Completed HEPATIC FUNCTION PANEL (32378) Completed LIPASE (59553) Completed PROTIME-INR (23365) Comp leted CBC AND DIFFERENTIAL (93273) Completed BASIC METABOLIC PANEL (87722) Completed URINALYSIS MICROSCOPIC (71766) Completed UA W/ SEDIMENT EXAM REFLEXED PER CRITERIA (47613) Completed URINE POCT (18257) Completed URINALYSIS AUTO W/O SCOPE (85512) Completed MICROSCOPIC EXAM OF URINE (64077) Completed URINE CULTURE/COLONY COUNT (42925) Completed EMERGENCY DEPT VISIT LOW MDM (30615) Completed EMERGENCY DEPT VISIT MOD MDM (74594) Completed THER/PROPH/DIAG INJ IV PUSH (54318) Completed TX/PRO/DX INJ NEW DRUG ADDON (06359) Completed Encounters FILTER APPLIED:Only known Encounters with Admission Date within the last 5 years Encounter Location Admission Discharge Billing Code Iv Therapy Nurse Attender Emergency Virginiemahi maurizio Rhiannon Emergency Cale Coreasgriffin Emergency [id number] TIFFANIE MILLS Emergency [id number] ABBY GONZALEZORLANDO Emergency [id number] JONNIE XAVIER Emergency [facility] Emergency [facility] Emergency [facility] MAK RHODES Emergency [facility] Outpatient [facility] Recurring Patient [facility] BUNNY BRICE Recurring Patient [facility] BUNNY BRICE
== END 2024-08-19 08:59 | disposition other institution (70) ==
PROVIDERS: Emergency Provider Family Medicine; PCP Student in an Organized Health Care Education/Training Program
DX: H53.9 Unspecified visual disturbance (principal); H11.32 Conjunctival hemorrhage, left eye
CPT/HCPCS: 99282; 99283

== ENCOUNTER 2024-12-17 15:34 | Emergency (ER) | payer MEDICAID, SELFPAY ==
--- OUTSIDE RECORDS SUMMARY | 2024-12-17 15:37 | XMS_ITS | Encounter Summary ---
Author Organization [place] Address [facility] 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 [place] [phone] Rocky Henley MD [address] [place] [id number] documented as of this encounter Visit Diagnoses Not on filedocumented in this encounter Additional Health Concerns Assessment Noted Time PHQ-9 Depression Total Score: 26 020 3:00 PM CDT documented as of this encounter Care Teams Fountain Roller Assembler Relationship Specialty Start Date End Date Vane Black PA [address] [place] [address] PCP - General Family Practice 05/12/23 Sukhwinder Gerard MD [address] [place] [address]78[address] Gastroenterology 03/08/20 Jese Simmons DO [address] [place] [address] Resident Neurology 05/29/24 Vasquez Abdullahi MD [facility] [address] [place] [address] Emergency Medicine 05/29/24 documented as of this encounter
--- OUTSIDE RECORDS SUMMARY | 2024-12-17 15:37 | XMS_ITS | Encounter Summary ---
Author Organization [place] Address [address] [place] [address] Care Team Providers Care Instructional Coordinator Name Role Phone Lucy Valverde MD Primary Care Provider [phone] Marilou Quigley MD Primary Care Provider [phone] Lola Laurent PA-C Unavailable Lucy Valverde MD Unavailable Sukhwinder Gerard MD Unavailable [phone] Sukhwinder Gerard MD Unavailable [phone] Vane Hua APRN ULTRASONIC TESTER Unavailable Unavai Lucy Gonzales MD Unavailable [phone] Lucy Valverde MD Unavailable [phone] Vane Hua APRN ULTRASONIC TESTER Unavailable LauravaVane Lawson Primary Care Provider [phone] Jese Simmons DO Unavailable [phone] Vasquez Abdullahi MD Unavailable [phone] Rocky Henley MD Unavailable [phone] Encounter Details Date Type Department Care Team (Late st Contact Info) Description 10/04/2007 Abstract [facility] [address] [place], [place] [address] Lucy Valverde MD [address] [facility] [place], [place] [address] Social History Tobacco Use Types Packs/Day Years Used Date Smoking Tobacco: Never Assessed Comments Unknown Sex and Gender Information Value Date Recorded Sex Assigned at Not on file 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 [place] [phone] Rcoky Henley MD [address] [place] [address] documented as of this encounter Visit Diagnoses Not on filedocumented in this encounter Additional Health Concerns Infection Onset Date Last Indicated Resolved Time Rule Out COVID-19 02/27/2020 02/27/2020 02/28/2020 2:25 PM CDT documented as of this encounter Care Teams Instructional Coordinator Relationship Specialty Start Date End Date Lucy Valverde MD [address] [place] [address] PCP - General 08/23/07 04/28/17 Marilou Quigley MD [facility] [address] [place] [address] PCP - General 04/29/17 05/11/23 Vane Black PA [facility] [address] PCP - General Family Practice 05/12/23 Lola Laurent PA-C [address] [facility] [place] [id number] Assigned PCP 09/23/19 11/18/19 Lucy Valverde MD [address] [facility] [place] [address] Assigned PCP 11/19/19 11/16/20 Sukhwinder Gerard MD [address] [place] [address] Gastroenterology 03/08/20 Sukhwinder Gerard MD [place] [facility] [address] [address] [place], [place] [address] Assigned Gastroenterology Provider 06/07/20 09/06/21 Vane Hua APRN ULTRASONIC TESTER Assigned PCP 11/17/20 02/27/21 Lucy Valverde MD [address] [facility] [place] [address] Assigned PCP 02/28/21 07/31/22 Lucy Valverde MD [address] [facility] [place] [address] Assigned PCP 10/10/22 11/13/22 Vane Hua APRN ULTRASONIC TESTER Assigned PCP 11/14/22 02/19/23 Jese Simmons DO [address] [place] [address] Resident Neurology 05/29/24 Vasquez Abdullahi MD [facility] [address] [place] [address] Emergency Medicine 05/29/24 Rocky Henley MD [address] [place] [address] Assigned Heart and Vascular Provider 12/06/24 documented as of this encounter
--- OUTSIDE RECORDS SUMMARY | 2024-12-17 15:37 | XMS_ITS | Encounter Summary ---
Author Organization [place] Address [facility] [place] [address] Care Team Providers Care Program Or Project Administrator Name Role Phone Sukhwinder Gerard MD Unavailable [phone] Vane Black Primary Care Provider + [phone] Jese Simmons DO Unavailable [phone] Vasquez Abdullahi MD Unavailable [phone] Reason for Visit * Diagnostic Imaging Ultrasound (Routine) - Pending Review Specialty Diagnoses / Procedures Referred By Contac t Referred To Contact Radiology. Diagnoses Pain of left lower extremity Procedures US Venous Competency Bilateral Rocky Henley MD [address] [place] [address] Phone: tel: fax: Referral ID Status Reason Start Date Expiration Date V isits Requested Visits Authorized [id number] Pending Review 11/23/2024 11/23/2025 1 1 Encounter Details Date Type Department Care Team (Late st Contact Info) Description 12/04/2024 11:00 AM CDT Ancillary Procedure [facility] [place] [id number] [employer] [address] [place] [id number] Rocky Henley MD [address] [place] [id number] Pain of left lower extremity Social History Tobacco Use Types Packs/Day Years [...] on file 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 [place] [phone] Rocky Henley MD [address] [place] [id number] documented as of this encounter Procedures Procedure Name Priority Date/Time Associated Diagnosis Comments US VENOUS COMPETENCY BILATERAL Routine 12/04/2024 11:42 AM CDT Pain of left lower extremity documented in this encounter Results * US Venous Competency Bilateral (12/04/2024 11:42 AM CDT) Anatomical Region Laterality Modality Lower Extremity Ultrasound Narrative 12/11/2024 6:14 AM CDT Table formatting from the original result was not included. Bilateral Venous Insufficiency Ultrasound (Date: 04/21/25) Bilateral Lower Extremity Examined by: Omari Avila RVT Indication: venous insufficiency, left lower extremity pain BP: 110/73 HR: 61 Technique: Supine and Reverse Trendelenburg Ultrasound of the Deep and Superficial Veins with Valsalva and Compression Augmentation Maneuvers. Duplex Imaging is performed utilizing velásquez-scale, Two-dimensional images, color-flow imaging, Doppler waveform analysis, and Spectral doppler imaging done with provocative maneuvers. Incompetency Criteria: Deep vein reflux reported when greater than 1.0 sec flow reversal. Superficial vein reflux reported when greater than 0.5 sec flow reversal. Clinical Administrator vein reflux reported as greater than 0.5 sec flow reversal. Scan Position for Deep and Superficial Insufficiency Evaluation: Reverse Trendelenburg Right Leg Deep Veins Thrombus Phasic Reflux Time (sec) CFV - + 1.2 Femoral V Prox - + - Femoral V Mid - + - Femoral V Dist - + - Popliteal V - + - PTV'S - Peroneal V'S - Right Leg Superficial Veins AP (mm) Depth (mm) Thrombus Reflux Time (sec) SFJ 7.0 7.8 - - AASV @ SFJ 2.5 9.1 - - GSV Prox Thigh 3.9 11.8 - 0.9 GSV Mid Thigh 5.1 11.9 - 1.5 GSV Dist Thigh 5.7 11.2 - 2.4 GSV Knee 5.6 9.4 - - GSV Prox Calf 4.3 5.7 - - GSV Mid Calf 3.0 7.1 - - GSV Dist Calf 3.9 6.6 - - AP (mm) Depth (mm) Thrombus Reflux Time (sec) GIACOMINI V Dist 2.2 15.4 - - SPJ NV SSV Prox Calf 3.0 9.2 - - SSV Mid Calf 2.8 9.7 - - SSV Dist Calf 2.8 6.9 - - Comments: The GSV gives rise to a varicose branch measuring 4.2 mm off the proximal calf that courses medial with a reflux time of 3.7 seconds. Perforators: There is no evidence of incompetent front edger veins at any level. Left Leg Deep Veins Thrombus Phasic Reflux Time (sec) CFV - + 2.1 Femoral V Prox - + - Femoral V Mid - + - Femoral V Dist - + - Popliteal V - + - PTV'S - Peroneal V'S - Left Leg Superficial Veins AP (mm) Depth (mm) Thrombus Reflux Time (sec) SFJ 6.8 7.4 - - AASV @ SFJ 4.9 8.8 - - AASV Prox Thigh 5.3 13.0 - - GSV Prox Thigh 4.1 11.1 - 0.9 GSV Mid Thigh 5.2 11.0 - 1.7 GSV Dist Thigh 6.5 10.7 - 0.8 GSV Knee 6.2 8.5 - - GSV Prox Calf 4.6 7.8 - - GSV Mid Calf 3.0 8.4 - - GSV Dist Calf 3.5 7.9 - - AP (mm) Depth (mm) Thrombus Reflux Time (sec) GIACOMINI V Dist 1.2 14.8 - - SPJ NV SSV Prox Calf 3.0 9.6 - - SSV Mid Calf 2.5 9.5 - - SSV Dist Calf 2.4 7.2 - - Comments: The GSV gives rise to a varicose branch measuring 3.7 mm off the proximal calf that courses medial with a reflux time of 3.7 seconds. Perforators: There is no evidence of incompetent front edger veins at any level. Impression: Right Deep Vein Findings: Patent deep venous system with no evidence of DVT and reflux present in the common femoral vein, the remainder of the deep system is competent Left Deep Vein Findings: Patent deep venous system with no evidence of DVT and reflux present in the common femoral vein, the remainder of the deep system is competent. Superficial Vein Findings: Right Great Saphenous Vein: Patent Greater Saphenous vein with Reflux noted from the proximal thigh to the distal thigh with a maximum diameter of 5.9 mm and reflux time of 2.4 seconds in the distal thigh. The GSV gives rise to a varicose branch measuring 4.2 mm off the proximal calf that courses medial with a reflux time of 3.7 seconds. Right Anterior Accessory Saphenous Vein: Patent Anterior Accessory Saphenous Vein without evidence of reflux. Right Giacomini Vein: Patent Giacomini Vein without evidence of reflux. Right Small Saphenous Vein: Patent Small Saphenous Vein without evidence of reflux. Right Perforating and Accessory Veins: No evidence of incompetent perforators at any level. Left Great Saphenous Vein: Patent Greater Saphenous vein with Reflux noted in the proximal thigh through the distal thigh with a maximum diameter of 6.5 mm in the distal thigh. Left Anterior Accessory Saphenous Vein: Patent Anterior Accessory Saphenous Vein without evidence of reflux. Left Giacomini Vein: Patent Giacomini Vein without evidence of reflux. Left Small Saphenous Vein: Patent Small Saphenous Vein without evidence of reflux. Left Perforating and Accessory Veins: No evidence of incompetent perforators at any level. Reference: Venous Doppler: (+) = Present (-) = Absent (D) = Decreased, (NV) = Not Visualized Reflux: (-) Competent, (NV) = Not Visualized Interpretation criteria: Duration of Retrograde flow (milliseconds) Category Deep Veins Superficial Veins Clinical Administrator veins Competent < 1.0 s < 0.5 s < 0.5 s Incompetent > 1.0 s > 0.5 s > 0.5 s Rocky Henley MD IMG US ORDERABLES Fi nal Result documented in this encounter Visit Diagnoses Diagnosis Pain of left lower extremity documented in this encounter Additional Health Concerns Assessment Noted Time PHQ-9 Depression Total Score: 26 02/19/ 020 3:00 PM CDT documented as of this encounter Care Teams Program Or Project Administrator Relationship Specialty Start Date End Date Vane Black PA [address] [place] [address] PCP - General Family Practice 05/12/23 Sukhwinder Gerard MD [address] [facility] 36 [place], [place] [address] Gastroenterology 03/08/20 Jese Simmons DO [address] [place], [place] [address] Resident Neurology 05/29/24 Vasquez Abdullahi MD [facility] [address] [place] [address] Emergency Medicine 05/29/24 documented as of this encounter
--- OUTSIDE RECORDS SUMMARY | 2024-12-17 15:37 | XMS_ITS | Encounter Summary ---
Author Organization [place] Address [address] [place] [address]. 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 [place] [phone] Rocky Henley MD [address] [place] [id number] documented as of this encounter Visit Diagnoses Not on filedocumented in this encounter Additional Health Concerns Assessment Noted Time PHQ-9 Depression Total Score: 26 020 3:00 PM CDT documented as of this encounter Care Teams Assembler Hydraulic Backhoe Relationship Specialty Start Date End Date Vane Black PA [address] [place] [address] PCP - General Family Practice 05/12/23 Sukhwinder Gerard MD [address] [place] [address] Gastroenterology 03/08/20 Jese Simmons DO [address] [place] [id number] Resident Neurology 05/29/24 Vasquez Abdullahi MD [facility] [address] [facility] [place] [address] Emergency Medicine 05/29/24 Rocky Henley MD [address] [place] [address] Assigned Heart and Vascular Provider 12/06/24 documented as of this encounter
--- OUTSIDE RECORDS SUMMARY | 2024-12-17 15:37 | XMS_ITS | Referral Summary ---
Author Organization [facility] Address [address] [place] [address] Care Team Providers Care Amusement Machine Mechanic Name Role Phone Vane Fish APRN, CNP Primary Care [facility] Unavailable Unavailable Allergies No known active allergies [...] 175.3 cm (5' 9) 10/20/2019 8:33 PM WEB APPLICATIONS PROGRAMMER Body Mass Index - - Plan of Treatment Not on file Care Teams Amusement Machine Mechanic Relationship Specialty Start Date End Date Vane Fish APRN, RESTAURANT CULINARY MANAGER PCP - General Nurse Practitioner 03/24/20 [facility] PCP - Primary Care Clinic Family Medicine 03/25/20
--- OUTSIDE RECORDS SUMMARY | 2024-12-17 15:37 | XMS_ITS | Encounter Summary ---
Author Organization [facility] Address [address] [place] [address] Care Team Providers Care Tax Services Specialist Name Role Phone Marilou Quigley MD Primary Care Provider [phone] Lola Laurent-C Unavailable [phone] Lucy Valverde MD Unavailable Sukhwinder Gerard MD Unavailable [phone] Sukhwinder Gerard MD Unavailable [phone] Vane Hua APRN PRACTICE SPECIALIST Unavailable Unavai Lucy Gonzales MD Unavailable [phone] Lucy Valverde MD Unavailable [phone] Vane Hua APRN PRACTICE SPECIALIST Unavailable Unavai Vane Arroyo Primary Care Provider [phone] Jsee Simmons DO Unavailable [phone] Vasquez Abdullahi MD Unavailable [phone] Reason for Visit * Reason Onset Date Comments Mental Health Problem 04/29/2017 Encounter Details Date Type Department Care Team ([facility] Contact Info) Description 04/29/2017 Telephone [facility] [address] [place] [address] Generic, Behavioral Intake, Mental Health Problem Social History Tobacco Use Types Packs/Day Years Used Date Smoking Tobacco: Never Alcohol Use Standard Drinks/Week Comments No 0 (1 standard drink = 0.6 oz pur e alcohol) PHQ-2 Answer Date Recorded PHQ-2 Score 6 02/20/2020 Adolescent Education Answer Date Record ed Getting School Help Needed Not on file 05/12 Comments No Sex and Gender Information Value Date Recorded Sex Assigned at Not on file 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 No / Unsure 05/12/2023 2:30 PM CDT documented as of this encounter Miscellaneous Notes * Telephone Encounter - Scott Saxena - 04/29/2017 5:53 PM CDT S: [facility] ED called to place a 17 yr old female for inpatient mental health treatment. B: Pt was BIB parents to the [facility] ED due to suicidal ideation with [...] Description 01/17/2025 1:45 PM CDT Office Visit [address] 3rd [place] [address] Rocky Henley MD [address] [place] [address] Ke Contreras MD [address] [place] [address] 01/25/2025 2:10 PM CDT Office Visit [facility] [place] [address] [place] [phone] Rocky Henley MD [address] [place] [address] documented as of this encounter Visit Diagnoses Not on filedocumented in this encounter Additional Health Concerns Infection Onset Date Last Indicated Resolved Time Rule Out COVID-19 02/27/2020 02/27/2020 02/28/2020 2:25 PM CDT documented as of this encounter Care Teams Tax Services Specialist Relationship Specialty Start Date End Date Marilou Quigley MD [facility] [address] [place] [address] PCP - General 04/29/17 05/11/23 Vane Black PA [address] [place] [address] PCP - General Family Practice 05/12/23 Lola Laurent PA-C [address] [place], [place] [address] Assigned PCP 09/23/19 11/18/19 Lucy Valverde MD [address] [place], [place] [address] Assigned PCP 11/19/19 11/16/20 Sukhwinder Gerard MD [address] [place] [address] [address] [place], [place] [address] Gastroenterology 03/08/20 Sukhwinder Gerard MD [facility] [address] [address] [place] [address] Assigned Gastroenterology Provider 06/07/20 09/06/21 Vane Hua APRN PRACTICE SPECIALIST Assigned PCP 11/17/20 02/27/21 Lucy Valverde MD [address] [place] [address] Assigned PCP 02/28/21 07/31/22 Lucy Valverde MD [address] [place] [address] Assigned PCP 10/10/22 11/13/22 Vane Hua APRN PRACTICE SPECIALIST Assigned PCP 11/14/22 02/19/23 Jese Simmons DO [address] [place] [address] Resident Neurology 05/29/24 Vasquez Abdullahi MD [facility] [address] [place] [address] Emergency Medicine 05/29/24 documented as of this encounter
--- OUTSIDE RECORDS SUMMARY | 2024-12-17 15:37 | XMS_ITS | Patient Health Record ---
Author Organization [facility] Address [address] [facility] [address] [place] [address] Care Team Providers Care Nylon Mender Name Role Phone [facility], Mental Health Unavailable [phone] Allergies Allergen (clinical drug ingredient) Drug/Non Drug Allergy documented on EMR Reaction Allergy Type Onset Date Status golimumab Simponi Unknown Drug Allergy Active trazodone Trazodone Unknown Drug Allergy Active Reason For Referral No Information Medications Medication SIG (Take, Route, Frequency, Duration) Notes Start Date End Date Status KlonoPIN Active Lyrica Active Rigby Active Problems Problem Type SNOMED Code ICD Code Onset Dates Problem Status W/U Status Risk Notes Problem Mood disorder (01246712) Mood disorder (F39) Active confirmed Problem Suicidal ideation (8453711) Suicidal ideation (R45.851) Active confirmed Encounters Encounter Location Date Provider Diagnosis [facility] [address] [place] [phone] 03/19/2024 [facility] Suicidal ideation R45.851 and Mood disorder F39 [facility] [address] [place] [phone] 03/19/2024 [facility] [address] [place] [phone] 03/20/2024 [facility] Assessments Encounter Date Diagnosis (ICD Code) Assessment Notes Treatment Notes Treatment Clinical Notes 03/19/2024 Suicidal ideation (ICD-10 - R45.851) [facility] agrees with disposition to safety plan with friends, Marisol and Ramon ([phone] or [phone]). C denies SI, HI or AVH. C reports ability to maintain safety and feels statement was taken out of context. CC spoke with Marisol who agrees to safety plan and pick C up from [facility]. C will fly back to [facility] in the morning to follow-up with OP provider. 03/19/2024 Mood disorder (ICD-10 - F39) Plan Of Treatment No Information Insurance Providers Payer Name Payer Address Payer Phone Subscriber Number Group Number Insured Name Patient Relationship to Insured Coverage Start Date Coverage End Date Uninsured [address] [place] [address] Lary Angulo Self - patient is the insured Medical (General) History Medical History History ICD Code Prefer not to answer Surgical History Surgery Date(Month/Year) Prefer not to disclose
--- OUTSIDE RECORDS SUMMARY | 2024-12-17 15:37 | XMS_ITS | Clinical Summary ---
Author Organization [facility] Address [address], [place] [address] Care Team Providers Care Inspector Hairspring Name Role Phone Clinician, Not Found MD Primary Care Provider Un available Source Comments You are receiving this document as you are listed as the primary care provider,follow-up provider, or the patient has been referred to you for consultation.This is in compliance with the Medicare and[facility] EHR Incentive Program,which states Providers who transition their patient to another setting of careor provider of care or refers their patient to another provider of care shouldprovide summary care record for each transition of care or referral. DocOnYou Allergies Active Allergy Reactions Criticality Noted Date Comments Molds & Smuts Anaphylaxis High 10/24/2024 Golimumab Anaphylaxis High 10/24/2024 Trazodone Other, see comments 10/24/2024 SI Medications lithium carbonate ER (LITHOBID) 300 MG extended release tablet Take 1 Tablet (300 mg) by mouth two times a day. 900mg Active clonazePAM (KLONOPIN) 1 MG tablet Take 1 Tablet (1 mg) by mouth two times daily as needed for Anxiety. Active suvorexant (BELSOMRA) 5 MG TABS tablet Take by mouth daily at bedtime. Active tiZANidine (ZANAFLEX) 4 MG capsule Take 1 Capsule (4 mg) by mouth three times a day. Active Ubrogepant (UBRELVY) 50 MG TABS Active pregabalin (LYRICA) 75 MG capsule Take 1 Capsule (75 mg) by mouth two times a day. Active metFORMIN XR (GLUCOPHAGE XR) 750 MG 24 hour release tablet Take 1 Tablet (750 mg) by mouth every evening with a meal. Active Encounters Date Type Department Care Team Description 10/24/2024 4:25 PM CDT - 10/24/2024 6:29 PM CDT Emergency [facility] [place] [address] Migdalia Block MD Palpitations; Orthostatic lightheadedness Discharge Disposition: Home from Last 3 Months Immunizations Immunization Administration Dates Next Due Moderna COVID-19 12+ 05/08/2024,08/23/2023 Pfizer Bivalent + 06/26/2022 Social History Tobacco Use Types Packs/Day Years Used Date Smoking Tobacco: Never Assessed Comments Unknown Sex and Gender Information Value Date Recorded Sex Assigned at Not on file Legal Sex Female 5:43 AM CDT Gender Identity Not on file Sexual Orientation Not on file Last Filed Vital Signs Vital Sign Reading Time Taken Comments Blood Pressure 112/70 10/24/2024 6:00 PM CDT Pulse 64 10/24/2024 6:00 PM CDT Temperature 37.1 C (98.7 F) 10/24/2024 4:11 PM CDT Respiratory Rate 20 10/24/2024 6:00 PM CDT Oxygen Saturation 97% 10/24/2024 6:00 PM CDT Inhaled Oxygen Concentration - - Weight - - Height - - Body Mass Index - - Plan of Treatment Health Maintenance Due Date Last Done Comments Cervical Cancer Screening Due 1999 Hep C Screening (Preventive Services) 1999 HIV Screening (Preventive Services) 2015 Adult Preventive Visit 2017 HepB Vaccine (1) 2018 Chlamydia 10/09/2025 10/09/2024, 02/2 11/2024, 04/14/2024, Additional history exists DTaP/Tdap/Td Vaccine (8 - Tdap) 01/24/2034 01/25/2024, 05/21/2010, 04/29/2004, Additional history exists Zoster/Shingles Vaccine (1 of 2) 2049 Hib Vaccine Completed 04/26/2000, 04/2000, 1999, Additional history exists Pneumococcal Vaccine Aged Out 04/25/2001, 10/26/19 01 No longer eligible based on patient's age to complete this topic IPV (Polio) Vaccine Completed 04/29/2004, 08/25/2001, 10/25/2000, Additional history exists MCV4 Vaccine Aged Out 05/21/2010 No longer eligi ble based on patient's age to complete this topic HPV Vaccine Completed 12/14/2014, 06/17, 04/20/2014 HepA Vaccine Completed 12/14/2014, 04/20/2014 COVID-19 Vaccine Completed 05/08/2024, 03/2024, 06/26/2022 Influenza Vaccine Completed 05/08/2024, , 06/26/2022, Additional history exists Meningococcal B Vaccine Aged Out No l onger eligible based on patient's age to complete this topic Procedures Procedure Name Priority Date/Time Associated Diagnosis Comments MAGNESIUM STAT 10/24/2024 4:40 PM CDT TSH, SENSITIVE STAT 10/24/2024 4:40 PM CDT COMPLETE BLOOD COUNT-W/DIFF STAT 10/24/2024 4:40 PM CDT TROPONIN I, HIGH SENSITIVITY (0 HOUR) STAT 10/24/2024 4:40 PM CDT CBC AND DIFFERENTIAL PANEL STAT 10/24/2024 4:40 PM CDT BASIC METABOLIC PANEL STAT 10/24/2024 4:40 PM CDT ECG 12 LEAD INPATIENT STAT 10/24/2024 3:53 PM CDT from Last 3 Months Results * hs-troponin i (0 hour) (10/24/2024 4:40 PM CDT) hs-troponin i (0 hour) <3 <=14 ng/L 10/24/2024 5:28 PM CDT [facility] Comment:See narrative for ap proximate translation of troponin results between previous and new (high sensitivity) assays. Criteria met a timed 2h reflex order has been created. Blood Venipuncture / Unknown 10/24/2024 4:40 PM CDT 10/24/2024 4:44 PM CDT Narrative [facility] - 10/24/2024 5:28 PM CDT Approximate translation examples of troponin results between previous and new (high sensitivity) assays. Troponin hs-troponin i 0.01 ng/mL 10 ng/L 450.00 ng/mL 450,000 ng/L us Scott Cisse MD LAB_1 Final Result [facility] [address] [employer] [address] * (ABNORMAL) Complete Blood Count-W/Diff (10/24/2024 4:40 PM CDT) WBC 11.1(H) 3.5 - 10.5 x10(9)/L 10/24/2024 4:48 PM CDT [facility] RBC 4.51 3.90 - 5.03 x10(12)/L 10/24/2024 4:48 PM CDT [facility] Hemoglobin 14.2 12.0 - 15.5 g/dL 10/24/2024 4:48 PM CDT [facility] HCT 42.3 34.9 - 44.5 % 10/24/2024 4:48 PM CDT [facility] MCV 93.8 80.0 - 100.0 fL 10/24/2024 4:48 PM CDT [facility] MCH 31.5 27.6 - 33.3 pg 10/24/2024 4:48 PM CDT [facility] MCHC 33.6 31.5 - 35.2 g/dL 10/24/2024 4:48 PM CDT [facility] RDW 12.9 11.9 - 15.5 % 10/24/2024 4:48 PM CDT [facility] Platelets 317 150 - 450 x10(9)/L 10/24/2024 4:48 PM CDT [facility] Automated NRBC 0 <=0 /100 WBC 10/24/2024 4:48 PM CDT [facility] Neutrophil Absolute 5.2 1.7 - 7.0 10(9)/L 10/24/2024 4:48 PM CDT [facility] Lymphocyte Absolute 4.4 1.0 - 4.8 10(9)/L 10/24/2024 4:48 PM CDT [facility] Monocyte Absolute 0.7 0.2 - 0.9 10(9)/L 10/24/2024 4:48 PM CDT [facility] Eosinophil Absolute 0.7(H) 0.0 - 0.5 10(9)/L 10/24/2024 4:48 PM CDT [facility] Basophil Absolute 0.1 0.0 - 0.3 10(9)/L 10/24/2024 4:48 PM CDT [facility] Immature Granulocyte % 0.3 0.0 - 0.5 % 10/24/2024 4:48 PM CDT [facility] Blood Venipuncture / Unknown 10/24/2024 4:40 PM CDT 10/24/2024 4:44 PM CDT us Scott Cisse MD LAB_1 Final Result Performing Organization Address City/[facility]/ZIP Co de Phone Number [facility] [address] [place] [address] * TSH (10/24/2024 4:40 PM CDT) Pathologist [facility] TSH, Sensitive 2.14 0.30 - 4.50 uIU/mL 10/24/2024 5:28 PM CDT [facility] Blood Venipuncture / Unknown 10/24/2024 4:40 PM CDT 10/24/2024 4:44 PM CDT us Migdalia Block MD LAB_1 Final Resu lt Performing Organization Address City/[facility]/ZIP Co de Phone Number [facility] [address] * (ABNORMAL) Basic Metabolic Panel (10/24/2024 4:40 PM CDT) Pathologist [facility] Sodium 139 136 - 145 mmol/L 10/24/2024 5:08 PM CDT [facility] Potassium 3.9 3.5 - 5.1 mmol/L 10/24/2024 5:08 PM CDT [facility] Chloride 110(H) 98 - 109 mmol/L 10/24/2024 5:08 PM CDT [facility] CO2 23 20 - 29 mmol/L 10/24/2024 5:08 PM CDT [facility] Anion Gap 6 6 - 16 mmol/L 10/24/2024 5:08 PM CDT [facility] Calcium 9.2 8.4 - 10.4 mg/dL 10/24/2024 5:08 PM CDT [facility] BUN 14 7 - 26 mg/dL 10/24/2024 5:08 PM CDT [facility] Creatinine 0.82 0.55 - 1.02 mg/dL 10/24/2024 5:08 PM CDT [facility] Glucose 88 70 - 100 mg/dL 10/24/2024 5:08 PM CDT [facility] Comment:The given reference range is for the fasting state. Non-fasting reference range for glucose is 70 - 180 mg/dL. GFR, Estimated >60 >60 mL/min/1.7 3m2 10/24/2024 5:08 PM CDT [facility] Blood Venipuncture / Unknown 10/24/2024 4:40 PM CDT 10/24/2024 4:44 PM CDT us Scott Cisse MD LAB_1 Final Result Performing Organization Address [facility] Co de Phone Number [facility] [address] * Magnesium (10/24/2024 4:40 PM CDT) Magnesium 2.1 1.6 - 2.6 mg/dL 10/24/2024 5:08 PM CDT [facility] Blood Venipuncture / Unknown 10/24/2024 4:40 PM CDT 10/24/2024 4:44 PM CDT us Migdalia Block MD LAB_1 Final Resu lt Performing Organization Address City/[facility]/ZIP Co de Phone Number [facility] [address] [place], [place] [address] * ECG 12 Lead (10/24/2024 3:53 PM CDT) Ventricular Rate 67 BPM [facility] Atrial Rate 67 BPM [facility] P-R Interval 150 ms [facility] QRS Duration 92 ms [facility] QT 392 ms [facility] QTC 414 ms [facility] P [place] 24 degrees MUSE [facility] R [place] -7 degrees MUSE [facility] T [place] 9 degrees [facility] 10/24/2024 3:53 PM CDT Narrative [facility] - 10/24/2024 9:12 PM CDT Sinus rhythm Possible Left atrial enlargement Incomplete right bundle branch block Nonspecific T wave abnormality Abnormal ECG No previous ECGs available Confirmed by Migdalia Block ([id number]) on 10/24/2024 9:12:15 PM Procedure Note Migdalia Block MD - 10/24/2024 Sinus rhythm Possible Left atrial enlargement Incomplete right bundle branch block Nonspecific T wave abnormality Abnormal ECG No previous ECGs available Confirmed by Migdalia Block ([id number]) on 10/24/2024 9:12:15 PM us Scott Cisse MD PN ECG ORDERABLES Final Resul t [facility] [address] [place] [address] from Last 3 Months Insurance [facility] Care Teams Inspector Hairspring Relationship Specialty Start Date End Date Clinician, Not Found[facility] [address] PCP - General 10/24/24
--- OUTSIDE RECORDS SUMMARY | 2024-12-17 15:37 | XMS_ITS | Clinical Summary ---
Author Organization [facility] Address [address] [place] [address] Care Team Providers Care Gravel Hauler Name Role Phone Vane Fish APRN, CNP Primary Care [facility] Unavailable Unavailable Allergies No known active allergies [...] 175.3 cm (5' 9) 10/20/2019 8:33 PM ALLERGY SPECIALIST Body Mass Index - - Plan of Treatment Health Maintenance Due Date Last Done Comments Hepatitis C Screening 1999 Pap Smear 1999 Anxiety Screening (BENSON-2) 2000 Depression Assessment (PHQ-2) 2000 Adult Tetanus Booster 05/21/2020 05/21/2010 Chlamydia/Gonorrhea Screening 01/07/2021 01/08/2020, 01/08/2020, 10/19/2019, Additional history exists COVID-19 Vaccine ( - 2023- season) 2024 Influenza Vaccine (Season Ended) 2025 06/04/2015, 06/12/2013, 09/29/2011 RSV Vaccines (1 - 1-dose 75+ series) 2074 Pneumococcal Vaccine Aged Out 04/25/2001, 10/26/19 01 No longer eligible based on patient's age to complete this topic HPV Vaccine Completed 12/14/2014, 06/17, 04/20/2014 Care Teams Gravel Hauler Relationship Specialty Start Date End Date Vane Fish APRN, TELETYPESETTER OPERATOR PCP - General Nurse Practitioner 03/24/20 [facility] PCP - Primary Care Clinic Family Medicine 03/25/20
--- OUTSIDE RECORDS SUMMARY | 2024-12-17 15:37 | XMS_ITS ---
Author Organization [place] Address [address] [facility] [address] [place] [address] Care Team Providers Care Flag Maker Name Role Phone [facility] Unavailable [phone] REASON FOR VISIT EPS Crisis Follow-up 2 Encounters Encounter Location Date Provider Diagnosis Crisis - [address] [address] 03/20/2024 [facility] Plan Of Treatment No Information Progress Notes * Stella ANGULOhDOB:[birth year] (23 yo F)Acc No.[id number]:03/20/2024 Patient: Lary LOMAX :2000 A ge:23 Y S ex:Female Phone: Address:[address], [place], [address] Subjective: * Chief Complaints: * E PS Crisis Follow-up 2 * Medical History: * Surgical History: * Hospitalization/Major Diagno stic Procedure: * Medications: Objective: * Vitals: * Physical Examination: Plan: * Treatment: * Procedure Codes: * true * Date: Generated for Franciscoi hugo/Faqueenieg/eTransmitting on: 0 12/17/2024 03:34 PM CDT
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
--- OUTSIDE RECORDS SUMMARY | 2024-12-17 15:37 | XMS_ITS | Encounter Summary ---
Author Organization [place] Address [facility] 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 [place] [phone] Rocky Henley MD [address] [place] [id number] documented as of this encounter Visit Diagnoses Not on filedocumented in this encounter Additional Health Concerns Assessment Noted Time PHQ-9 Depression Total Score: 26 020 3:00 PM CDT documented as of this encounter Care Teams Abseiling Instructor Relationship Specialty Start Date End Date Vnae Black PA [address] [place] [address] PCP - General Family Practice 05/12/23 Sukhwinder Gerard MD [address] [place] [address] [id number] Gastroenterology 03/08/20 Jese Simmons DO [address] [place] [address] Resident Neurology 05/29/24 Vasquez Abdullahi MD [facility] [address] [place] [address] Emergency Medicine 05/29/24 documented as of this encounter
--- OUTSIDE RECORDS SUMMARY | 2024-12-17 15:37 | XMS_ITS | Clinical Summary ---
Author Organization [facility] Address [address] [place] [address] Care Team Providers Care Sheet Metal Insulator Name Role Phone Vane Black Primary Care Provider [phone] Carson Cardona MD Unavailable [phone] Nazia Yoon Unavailable Allergies Active Allergy Reactions Criticality Noted Date Comments [place] GI Upset 08/25/2018 Patient reports immediate stomach pain. [place] Oil GI Upset 04/27/2018 [place] GI Upset 04/27/2018 Patient reports it feels like a rock when I eat it, for 48 hours and I cannot digest it. Crab GI Upset 04/27/2018 Golimumab Anaphylaxis,*Unknown High 01/17/2024 Hot, flushed, nauseated, disoriented, tingling in mouth and throat, slurred speech Lactose GI Upset 08/25/2018 Patient reports it is severe. Mold Dyspnea,Anaphylaxis High 10/09/2024 Passion Fruit Flavor Anaphylaxis,Confusi on ,Hives,Hypertension,I tching,Nausea Only,Rash,Runny Nose,Shortness Of Breath High 12/15/2024 [place] Oil Other - Describe In Comment Field 07/11/2018 Trazodone Other - Describe In Comment Field,*Unknown 09/17/2023 Suicidal thoughts SI Medications levonorgestrel intrauterine device (Mirena) 20 mcg/24 hours (7 yrs) 52 mg IUD Inject 1 Device intrauterine. 021 Active albuterol HFA (PRO-AIR; VENTOLIN; PROVENTIL) 90 mcg/actuation inhalerIndications:W heezing Inhale 2 Puffs by mouth every 4 hours if needed for Shortness Of Breath. 2 Each 1 023 Active ondansetron (ZOFRAN ODT) 4 mg disintegrating tabletIndications:Na usea Place 1 Tablet (4 mg) on the tongue every 8 hours if needed for Nausea/Vomiting. 15 Tablet 024 Active suvorexant (BELSOMRA) 10 mg tabletIndications:Co ncussion without loss of consciousness, subsequent encounter,Work related injury,Insomnia due to medical condition Take 10 mg by mouth at bedtime. 90 Tablet 024 Active clonazePAM (KLONOPIN) 0.5 mg tabletIndications:Ch ronic post-traumatic stress disorder (PTSD) Take 1 Tablet (0.5 mg) by mouth once daily if needed for Anxiety. 14 Tablet 4 024 Active lithium carbonate 600 mg capsuleIndications:B ipolar 1 disorder, mixed, moderate (HC) Take one capsule by mouth at bedtime. 14 Capsule 4 024 Active metFORMIN (GLUCOPHAGE XR) 750 mg Extended-Release tablet Take 750 mg by mouth once daily. Active cetirizine (ZYRTEC) 10 mg tablet Take 10 mg by mouth once daily. Active EPINEPHrine (EPIPEN) 0.3 mg/0.3 mL auto-injector Inject 0.3 mg intramuscular. 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 Active pregabalin (LYRICA) 75 mg capsule Take 75 mg by mouth two times daily. Active ubrogepant (UBRELVY) 100 mg tab tabletIndications:Co ncussion without loss of consciousness, subsequent encounter,Work related injury,Migraine with aura and without status migrainosus, not intractable Take 1 Tablet (100 mg) by mouth 2 times daily if needed for Migraine. 18 Tablet 3 025 Active acetaminophen-codein e (TYLENOL #3) 300-30 mg per tabletIndications:Ri ght shoulder pain, unspecified chronicity,Biceps tendonitis, right,Tear of right supraspinatus tendon Take 1 Tablet by mouth every 4 hours if needed for Pain. Max acetaminophen dose: 4000mg in 24 hrs. 20 Tablet 025 Active durable medical equipment (DME)Indications:Rig ht shoulder pain, unspecified chronicity,Biceps tendonitis, right,Tear of right supraspinatus tendon arm sling universal 025 Active traMADoL (ULTRAM) 50 mg tabletIndications:Ri ght shoulder pain, unspecified chronicity,Tear of right supraspinatus tendon,Biceps tendonitis, right Take 1 Tablet (50 mg) by mouth every 6 hours if needed for Pain. 20 Tablet 025 Active diclofenac topical (VOLTAREN) 1 % gelIndications:Right shoulder pain, unspecified chronicity,Tear of right supraspinatus tendon,Biceps tendonitis, right Apply 2 g topically to affected area(s) four times daily. 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 025 Active upadacitinib (Rinvoq) 15 mg extended release tabletIndications:Ax ial spondyloarthritis Take 1 Tablet (15 mg) by mouth once daily. 30 Tablet 3 025 Active amoxicillin-clavulan ate 875-125 mg tabletIndications:Br onchitis Take 1 Tablet by mouth every 12 hours for 5 days. 10 Tablet 025 2024 Active fluconazole 150 mg tabletIndications:Ye ast vaginitis Take 1 Tablet (150 mg) by mouth one time for 1 dose. 2 Tablet 025 2024 Active Problems Problem Noted Date Diagnosed Date [...] (03/18/2022): Added automatically from request for surgery [id number] Moderate restricting type anorexia nervosa 06/24 Insomnia 06/24/2020 Mixed obsessional thoughts and acts [...] Problem Noted Date Diagnosed Date Resolved Date Anorexia nervosa in remission 10/09/2024 10/24/2024 Inability to cope 01/09/2020 06/12/2022 Encounters Date Type Department Care Team Description 12/15/2024 2:40 PM CDT Ancillary Procedure [facility] [address] [place] [address] Arrived 12/15/2024 2:00 PM CDT Office Visit [facility] [address] [place] [address] Maria De Jesus Hung NP Chest Pain (fever 102, body aches, chills, chest pain and tightness. x 3 days. ) 12/15/2024 Travel 11/28/2024 Patient Outreach [facility] Care Management - [address] [place] [address] Nazia Yoon Care Coordination 11/27/2024 Orders Only [facility] [address] [place] [address] Manish Vasquez MD <No scans attached> 11/23/2024 12:30 PM CDT Ancillary Procedure [facility] [address] [place] [address] 11/23/2024 12:25 PM CDT Ancillary Procedure [facility] [address] [facility] [address] [place] [address] 11/23/2024 11:30 AM CDT Office Visit [facility] [address] [facility] [address] [place] [address] Manish Vasquez MD Consult (Ankylosing spondylitis of thoracolumbar region /) 11/23/2024 Travel 11/13/2024 Patient Outreach [address] [address] Nazia Yoon Care Coordination 11/08/2024 Patient Outreach [facility] - Care Management Navigation/[facility] [address] [place] [address] Helen Santos Care Management Intake (Engagement Outreach/) 11/08/2024 Patient Outreach [address] [address] Nazia Yoon Care Coordination 11/07/2024 5:14 PM CDT - 11/07/2024 7:30 PM CDT Emergency [facility] [address] [place] [address] Gertrude Zacarias PA Shortness of breath (Primary Dx); Pain and swelling of left lower extremity Discharge Disposition: Home Self Care 11/07/2024 1:00 PM CDT Ancillary Procedure [address] [place] [address] 11/07/2024 12:00 PM CDT Office Visit [facility] [address] [place] [address] Mimi Keita PA Leg Pain/problem (Left leg pain) 11/07/2024 11:30 AM CDT Office Visit [address] [place] [address] Miim Keita PA Recheck (Chronic right shoulder pain) 11/07/2024 Travel 10/31/2024 3:54 PM CDT - 10/31/2024 11:59 PM CDT Hospital Encounter [facility] [address] [place] [address] Eleuterio Pérez III, MD Chronic right shoulder pain; Biceps tendonitis, right 10/31/2024 Travel 10/24/2024 10:45 AM CDT Office Visit [address] [place] [address] Eleuterio Pérez III, MD Shoulder Pain/problem (Right shoulder pain) 10/24/2024 Travel 10/20/2024 8:20 AM PHLEBOTOMY SPECIALIST Procedure Only [address] [place] [address] Sandy Price DO Procedure (Right shoulder ultrasound evalu... 10/20/2024 Travel 10/17/[address] [place] [address] Eleuterio Pérez III, MD Appointment 10/13/[address] [place] [address] Sandy Price DO Appointment 10/10/2024 1:00 PM PHLEBOTOMY SPECIALIST Office Visit [address] [place] [address] Eleuterio Pérez III, MD Shoulder Pain/problem (WC; DOI: 06/10/24; right shoulder) 10/10/[address] [address] Al Alston MD Appointment 10/10/2024 Travel 10/09/2024 10:45 AM PHLEBOTOMY SPECIALIST Office Visit [facility] [address] [place] [address] Vane Black PA Concerns (Work comp follow up. Concerns about rotator cuff.) 10/09/2024 Refill [facility] [address] [place] [address] Karlo Ni MD Refill Request (Tizanidine HCL 4 mg tablet ) 10/08/2024 Travel 09/29/2024 10:40 AM PHLEBOTOMY SPECIALIST Procedure Only [address] [address] Al Alston MD Procedure (ultrasound guided right shoulde... 09/29/2024 Travel 09/27/2024 1:20 PM PHLEBOTOMY SPECIALIST Office Visit [facility] [address] [place] [address] Al Alston MD Shoulder Pain/problem (Right shoulder pain) 09/27/2024 Telephone [facility] [address] [place] [address] Al Alston MD Appointment 09/27/2024 Travel 09/20/2024 2:30 PM PHLEBOTOMY SPECIALIST Office Visit [facility] [address] [place] [phone] Jonatan Lozada PA Shoulder Pain/problem (right shoulder f/u CT) 09/20/2024 Travel from Last 3 Months Immunizations Immunization Administration Dates Next Due COVID-19 VACCINE SPIKEVAX [...] drink = 0.6 oz pur e alcohol) socail, rare PHQ-2 Answer Date Recorded PHQ-2 TOTAL [...] or yelled at (see row info)? No 11/07/2024 Interpersonal Safety Abuse 12 - 18 Not on file 11/07/2024 Interpersonal Safety Ambulatory Vulnerability No t on file 11/07/2024 Utilities Answer Date Recorded Do you have trouble paying f or utilities (for example, heat, electricity, water, phone)? 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 Not on file Not on file Obstetrics History Para Term AB IAB SAB Ectopic Multiple Livin g Live Births 0 0 0 0 0 0 0 0 0 0 0 Last Filed Vital Signs Vital Sign Reading Time Taken Comments Blood Pressure 119/71 12/15/2024 2:03 PM CDT Pulse 90 12/15/2024 2:03 PM CDT Temperature 37.3 C (99.2 F) 12/15/2024 2:03 PM CDT Respiratory Rate 18 12/15/2024 2:03 PM CDT Oxygen Saturation 98% 12/15/2024 2:03 PM CDT Inhaled Oxygen Concentration - - Weight 88.9 kg (196 lb) 12/15/2024 2:03 PM CDT Height 172.7 cm (5' 8) 11/23/2024 11:28 AM CDT Body Mass Index 29.8 11/23/2024 11:28 AM CDT Plan of Treatment Upcoming Encounters Date Type Department Care Team (Late st Contact Info) Description 01/18/2025 9:30 AM CDT Office Visit [facility] [address] [phone] [place] [address] [place], [place] [phone] 01/30/2025 2:00 PM CDT Telemedicine [facility] [address] [facility] [address] [place] [address] Asya Owen MD [address] [facility] [address] [place] [address] Health Maintenance Due Date Last Done Comments COVID-19 vaccine series (6 - Mixed Product risk season) 2024 05/08/2024, 08/23/2023, 06/26/2022, Additional history exists Pap test for age 21-65 01/24/2025 , 05/30/2020 (Verified in Care Everywhere or Patient Record) Depression screening for age 12+ 02/23/2025 02/24/2024, 02/24/2024, 02/23/2024, Additional history exists BMI (ht and wt on same day) for age 18+ 11/23/2025 11/23/2024, 10/09/2024, 05/10/2024, Additional history exists Tetanus booster 01/24/2034 01/25/2024, 05/21/2010 Pneumococcal series for age 6-49 Aged Out 04/25/2001, 10/25/2000 No longer eligibl e based on patient's age to complete this topic HPV series for age 9-26 Completed 12/15/19 15, 07/06/2014, 04/20/2014 Tdap Completed 01/25/2024, 05/21/2010 Influenza Vaccine Completed 05/08/2024, , 06/26/2022, Additional history exists HIV for age 15-65 Completed 10/09/2024, 09/03/2022 Hepatitis C screening for age 18-79 Completed 10/09/2024, 12/27/2023 Procedures Procedure Name Priority Date/Time Associated Diagnosis Comments CBC WITH AUTO DIFFERENTIAL STAT 12/15/2024 2:45 PM CDT Acute dyspnea CBC WITH AUTO DIFFERENTIAL STAT 12/15/2024 2:45 PM CDT Acute dyspnea XR CHEST 2 VIEWS PA AND LATERAL STAT 12/15/2024 2:41 PM CDT Acute dyspnea COVID/FLU/RSV PANEL Routine 12/15/2024 2 :28 PM CDT Acute dyspnea QUANTIFERON -TB GOLD PLUS 1 TUBE ([facility]) Routine 11/23/2024 12:36 PM CDT Axial spondyloarthritis IGM ANTI-HBC Routine 11/23/2024 12:36 PM CDT Axial spondyloarthritis CK TOTAL Routine 11/23/2024 12:36 PM CDT Axial spondyloarthritis C-REACTIVE PROTEIN Routine 11/23/2024 12 :36 PM CDT Axial spondyloarthritis SEDIMENTATION RATE Routine 11/23/2024 12 :36 PM CDT Axial spondyloarthritis ANCA PANEL FOR VASCULITIS Routine 11/23/2024 12:36 PM CDT Axial spondyloarthritis Pain in both upper extremities IGA Routine 11/23/2024 12:36 PM CDT Axial spondyloarthritis UA W/ SEDIMENT EXAM REFLEXED PER CRITERIA STAT 11/23/2024 12:35 PM CDT Axial spondyloarthritis PROTEIN/CREAT RATIO,URINE Routine 11/23/2024 12:34 PM CDT Axial spondyloarthritis XR SPINE THORACIC 2 VIEWS Routine 11/23/2024 12:32 PM CDT Axial spondyloarthritis XR SPINE CERVICAL 2 VIEWS Routine 11/23/2024 12:31 PM CDT Axial spondyloarthritis CT CHEST PE STUDY STAT 11/07/2024 6:5 9 PM CDT XR FOOT 3 VIEWS LEFT STAT 11/07/2024 6:19 PM CDT XR CHEST 2 VIEWS PA AND LATERAL STAT 11/07/2024 6:19 PM CDT D-DIMER,QUANTITATIVE VIV 11/07/2024 5:52 PM CDT EXTRA TUBE BLUE Today 11/07/2024 5:52 PM CDT HEPATIC FUNCTION PANEL STAT 11/07/2024 5:52 PM CDT TROPONIN T (HS) ACUTE W/2HR REFLEX STAT 11/07/2024 5:52 PM CDT TSH STAT 11/07/2024 5:52 PM CDT MAGNESIUM STAT 11/07/2024 5:52 PM CDT BASIC METABOLIC PANEL STAT 11/07/2024 5:52 PM CDT CBC W PLT NO DIFF STAT 11/07/2024 5:5 2 PM CDT EKG 12 LEAD STAT 11/07/2024 5:37 PM CDT US VENOUS LOWER EXTREMITY LEFT STAT 11/07/2024 12:47 PM CDT Left leg swelling US VENOUS UPPER EXTREMITY RIGHT Routine 10/31/2024 4:28 PM CDT Chronic right shoulder pain Biceps tendonitis, right US ARTERIAL UPPER EXTREMITY RIGHT Routine 10/31/2024 4:24 PM CDT Chronic right shoulder pain Biceps tendonitis, right HBSAG (HBS) Routine 10/09/2024 12:02 PM PHLEBOTOMY SPECIALIST Screening examination for STD (sexually transmitted disease) ANTI HCV Routine 10/09/2024 12:02 PM PHLEBOTOMY SPECIALIST Screening examination for STD (sexually transmitted disease) ANTI HIV 1/2 Routine 10/09/2024 12:02 PM PHLEBOTOMY SPECIALIST Screening examination for STD (sexually transmitted disease) GC CHLAMYDIA TRACH PROBE Routine 10/09/2024 12:00 PM PHLEBOTOMY SPECIALIST Screening examination for STD (sexually transmitted disease) TREPONEMA PALLIDUM Routine 10/09/2024 12 :00 PM PHLEBOTOMY SPECIALIST Screening examination for STD (sexually transmitted disease) HEALTH POLICY NURSE THIN PREP PAP SCREEN IMAGED Routine 01/25/2024 1:25 PM CDT Screening for malignant neoplasm of cervix from Last 3 Months or Most Recently Relevant to Health Maintenance Results * (ABNORMAL) CBC WITH AUTO DIFFERENTIAL (12/15/2024 2:45 PM CDT) WHITE BLOOD COUNT 12.0(H) 4.5 - 11.0 thou/cu mm 12/15/2024 3:05 PM [facility] RED BLOOD COUNT 4.82 4.00 - 5.20 mil/cu mm 12/15/2024 3:05 PM [facility] HEMOGLOBIN 14.7 12.0 - 16.0 g/dL 12/15/2024 3:05 PM [facility] HEMATOCRIT 45.4 33.0 - 51.0 % 12/15/2024 3:05 PM [facility] MCV 94 80 - 100 fL 12/15/2024 3:05 PM [facility] MCH 30.5 26.0 - 34.0 pg 12/15/2024 3:05 PM [facility] MCHC 32.4 32.0 - 36.0 g/dL 12/15/2024 3:05 PM [facility] RDW 12.8 11.5 - 15.5 % 12/15/2024 3:05 PM [facility] PLATELET COUNT 272 140 - 440 thou/cu mm 12/15/2024 3:05 PM [facility] MPV 9.6 6.5 - 11.0 fL 12/15/2024 3:05 PM [facility] % NEUT 74.5 % 12/15/2024 3:05 PM [facility] % LYMPH 16.6 % 12/15/2024 3:05 PM [facility] % MONO 7.1 % 12/15/2024 3:05 PM [facility] % EOS 1.4 % 12/15/2024 3:05 PM [facility] % BASO 0.4 % 12/15/2024 3:05 PM [facility] ABSOLUTE NEUTROPHILS 9.0(H) 1.7 - 7.0 thou/cu mm 12/15/2024 3:05 PM [facility] ABSOLUTE LYMPHOCYTES 2.0 0.9 - 2.9 thou/cu mm 12/15/2024 3:05 PM CDT [facility] ABSOLUTE MONOCYTES 0.9(H) <0.9 thou/cu mm 12/15/2024 3:05 PM CDT [facility] ABSOLUTE EOSINOPHILS 0.2 <0.5 thou/cu mm 12/15/2024 3:05 PM CDT [facility] ABSOLUTE BASOPHILS 0.1 <0.3 thou/cu mm 12/15/2024 3:05 PM CDT [facility] Blood BLOOD SPECIMEN / Unknown [facility] / Unknown 12/15/2024 2:45 PM CDT 12/15/2024 2:45 PM CDT us Maria De Jesus Hung NP HEMATOLOGY Final Res ult [facility] [address] [place] [address] * XR CHEST 2 VIEWS PA AND LATERAL (12/15/2024 2:41 PM CDT) Only the most recent of2 resultswithin the time period is included. Anatomical Region Laterality Modality CHEST, THORAX, Lung, HEART Compu georgie Radiography 12/15/2024 2:55 PM CDT Narrative 12/15/2024 2:55 PM CDT For Patients: As a result of the Cures Act, medical imaging exams and procedure reports are released immediately into your electronic medical record. You may view this report before your referring provider. If you have questions, please contact your health care provider. Indication: Acute dyspnea Technique: Chest 2 views Comparison: Chest x-ray 11/07/2024 Findings/Impression: Cardiovascular and mediastinum: Heart size and vasculature are normal in caliber and appearance. Mediastinum is within normal limits. Lungs and pleural spaces: Lungs are clear. No sign of infiltrate or mass. No sign of pleural effusion. No pneumothorax. Bones and soft tissues: Posterior rods and pedicle screws. Dictated by Jone Farley MD @ 12/15/2024 2:55:24 PM (Electronically Signed) Procedure Note Jone Farley MD - 12/15/2024 For Patients: As a result of the Century Cures Act, medical imagingexams and procedure reports are released immediately into your electronicmedical record. You may view this report before your referring provider.If you have questions, please contact your health care provider. Indication: Acute dyspnea Technique: Chest 2 views Comparison: Chest x-ray 11/07/2024 Findings/Impression: Cardiovascular and mediastinum: Heart size and vasculature are normal incaliber and appearance. Mediastinum is within normal limits. Lungs and pleural spaces: Lungs are clear. No sign of infiltrate ormass. No sign of pleural effusion. No pneumothorax. Bones and soft tissues: Posterior rods and pedicle screws. Dictated by Jone Farley MD @ 12/15/2024 2:55:24 PM (Electronically Signed) us Maria De Jesus Hung CYCLE TOURING GUIDE GENERAL IMAGING Final Res ult * (ABNORMAL) COVID/FLU/RSV PANEL (12/15/2024 2:28 PM CDT) COVID 19 [facility] Negative Negative 12/15/2024 11:16 PM CDT [facility] Comment:All PCR tests are perdo bject to false negative result due to variability in viral load and collection technique. A negative result does not rule out a SARS-CoV-2 infection. Clinical correlation required. INFLUENZA A PCR Negative 11:16 PM CDT [facility] INFLUENZA B PCR Negative 11:16 PM CDT [facility] Respiratory Syncytial Virus Positive(A) 12/15/2024 11:16 PM CDT [facility] Swab NASOPHARYNGEAL SWAB / Unknown Non-Blood / Unknown 12/15/2024 2:28 PM CDT 12/15/2024 2:35 PM CDT us Maria D eJesus Hung NP MICROBIOLOGY Final Res ult [facility] [address] [place] [address], [place] * QUANTIFERON??-TB GOLD PLUS 1 TUBE ([facility]) (11/23/2024 12:36 PM CDT) QUANTIFERON(R)-T B GOLD PLUS, 1 TUBE NEGATIVE NEGATIVE [facility] Comment: Negative test result. M. tuberculosis complex infection unlikely. NIL 0.03 IU/mL [facility] MITOGEN-NIL 9.97 IU/mL [facility] TB1-NIL 0.00 IU/mL [facility] TB2-NIL 0.00 IU/mL [facility] Comment: The Nil tube value reflects the background interferon gamma immune response of the patient's blood sample. This value has been subtracted from the patient's displayed TB and Mitogen results. Lower than expected results with the Mitogen tube prevent false-negative Quantiferon readings by detecting a patient with a potential immune suppressive condition and/or suboptimal pre-analytical specimen handling. The TB1 Antigen tube is coated with the M. tuberculosis-specific antigens designed to elicit responses from TB antigen primed CD4+ helper T-lymphocytes. The TB2 Antigen tube is coated with the M. tuberculosis-specific antigens designed to elicit responses from TB antigen primed CD4+ helper and CD8+ cytotoxic T-lymphocytes. For additional information, please refer to https://education.Shipey/faq/GNS317 (This link is being provided for informational/ educational purposes only.) Blood BLOOD SPECIMEN / Unknown 11/23/2024 12:36 PM CDT 11/23/2024 12:37 PM CDT us Manish Vasquez MD SEND OUTS Fin al Result [employer] [facility] [address] [place] [address], [place] [phone] [facility] [address] [place] [address] * SEDIMENTATION RATE (11/23/2024 12:36 PM CDT) Pathologist [facility] SED RATE BY MODIFIED WESTERGREN 9 < OR = 20 mm/h [facility] Blood BLOOD SPECIMEN / Unknown 11/23/2024 12:36 PM CDT 11/23/2024 12:37 PM CDT Manish Vasquez MD HEMATOLOGY Fin al Result Performing Organization Address [facility]/ZIP Co de Phone Number [facility] [address] [place] [address], [place] [phone] [facility] [address] [place] [address] * ANCA PANEL FOR VASCULITIS (11/23/2024 12:36 PM CDT) Pathologist [facility] ANCA SCREEN NEGATIVE NEGATIVE [facility] Comment: ANCA screen uses indirect immunofluorescence to detect antibodies to neutrophil cytoplasmic antigens. A positive screen reflexes to titer and pattern. Patterns include cytoplasmic (c-ANCA) and perinuclear (p-ANCA) both of which are associated with vasculitis, and atypical p-ANCA which is associated with inflammatory bowel disease and other disorders. Blood BLOOD SPECIMEN / Unknown 11/23/2024 12:36 PM CDT 11/23/2024 12:37 PM CDT Manish Vasquez MD SEND OUTS Fin al Result Performing Organization Address City/[facility] Co de Phone Number [employer] [facility] [address] [place] [address], [place] [phone] [facility] [address] [place] [address] * IGA (11/23/2024 12:36 PM CDT) Pathologist [facility] IMMUNOGLOBULIN A 96 47 - 310 mg/dL [facility] Blood BLOOD SPECIMEN / Unknown 11/23/2024 12:36 PM CDT 11/23/2024 12:37 PM CDT Manish Vasquez MD CHEMISTRY Fin al Result Performing Organization Address [facility]/ZIP Co de Phone Number [employer] [facility] [facility] [address] [place] [address], [place] [phone] [facility] [address] [facility] [place] [address] * IGM ANTI-HBC (11/23/2024 12:36 PM CDT) Pathologist [facility] HEPATITIS B CORE ANTIBODY (IGM) NON-REACTI VE NON-REACTI VE [facility] Comment: For additional information, please refer to http://education.Shipey/faq/IND895 (This link is being provided for informational/ educational purposes only.) Blood BLOOD SPECIMEN / Unknown 11/23/2024 12:36 PM CDT 11/23/2024 12:37 PM CDT Manish Vasquez MD SEND OUTS Fin al Result Performing Organization Address [facility] Co de Phone Number [employer] [facility] [address] [place] [address], [place] [phone] [facility] [address] [place] [address] * (ABNORMAL) C-REACTIVE PROTEIN (11/23/2024 12:36 PM CDT) Pathologist [facility] C-REACTIVE PROTEIN 9.0(H) <8.0 mg/L [facility] Blood BLOOD SPECIMEN / Unknown 11/23/2024 12:36 PM CDT 11/23/2024 12:37 PM CDT us Manish Vasquez MD CHEMISTRY Fin al Result Performing Organization Address [facility]/ZIP Co de Phone Number [employer] [facility] [address] [facility] [place] [address], [place] [phone] [facility] [address] [place] [address] * CK TOTAL (11/23/2024 12:36 PM CDT) CREATINE KINASE, TOTAL 67 20 - 239 U/L [facility] Blood BLOOD SPECIMEN / Unknown 11/23/2024 12:36 PM CDT 11/23/2024 12:37 PM CDT Manish Vasquez MD CHEMISTRY Fin al Result Performing Organization Address City/[facility]/ZIP Co de Phone Number [employer] [facility] [address] [place] [address], [place] [phone] anywayanyday [facility] [address] [place] [address] * IN CLINIC UA w/ Sediment Exam Reflexed per Criteria (11/23/2024 12:35 PM CDT) COLOR YELLOW YELLOW [facility] ( APPEARANCE CLEAR CLEAR [facility] ( SPECIFIC GRAVITY 1.020 1.001 - 1.035 [facility] ( PH 7.0 5.0 - 8.0 [facility] ( GLUCOSE NEGATIVE NEGATIVE [facility] ( BILIRUBIN NEGATIVE NEGATIVE [facility] ( KETONES NEGATIVE NEGATIVE [facility] ( OCCULT BLOOD NEGATIVE NEGATIVE [facility] ( PROTEIN NEGATIVE NEGATIVE [facility] ( NITRITE NEGATIVE NEGATIVE [facility] ( LEUKOCYTE ESTERASE NEGATIVE NEGATIVE [facility] ( Urine URINE SPECIMEN / Unknown 11/23/2024 12:35 PM CDT 11/23/2024 12:35 PM CDT Manish Vasquez MD URINE Fin al Result [facility] [address] [place] [address], [place] [facility] ( [address] [place] [address] * PROTEIN/CREAT RATIO,URINE (11/23/2024 12:34 PM CDT) PROTEIN QUANT,RAND URINE 8 1 - 14 mg/dL 11/23/2024 6:54 PM CDT [facility] CREAT,RANDOM URINE 131.0 28.0 - 217.0 mg/dL 11/23/2024 6:54 PM CDT [facility] PROT/CREAT RATIO,UR 0.1 <0.2 11/23/2024 6:54 PM CDT [facility] Urine URINE SPECIMEN / Unknown Non-Blood / Unknown 11/23/2024 12:34 PM CDT 11/23/2024 12:34 PM CDT Manish Vasquez MD URINE Fin al Result [facility] [address] [place] [address], [place] * XR SPINE THORACIC 2 VIEWS (11/23/2024 12:32 PM CDT) Anatomical Region Laterality Modality Spine, THORACIC SPINE Digital Ra diography 11/23/2024 12:4 4 PM CDT Narrative 11/23/2024 12:44 PM CDT For Patients: As a result of the Cures Act, medical imaging exams and procedure reports are released immediately into your electronic medical record. You may view this report before your referring provider. If you have questions, please contact your health care provider. Indication: Axial spondyloarthritis. Technique: Thoracic spine, two views. Comparison: None. Impression: Posterior thoracolumbar fixation. The hardware is intact. The lungs are clear. Normal heart size. Dictated by Micah Durham MD @ Nov 23 2024 12:44PM (Electronically Signed) [email or web address] Procedure Note Micah Durham MD - 11/23/2024 For Patients: As a result of the s Act, medical imagingexams and procedure reports are released immediately into your electronicmedical record. You may view this report before your referring provider.If you have questions, please contact your health care provider. Indication: Axial spondyloarthritis. Technique: Thoracic spine, two views. Comparison: None. Impression: Posterior thoracolumbar fixation. The hardware is intact. The lungs areclear. Normal heart size. Dictated by Micah Durham MD @ Nov 23 2024 12:44PM (Electronically Signed) [email or web address] Manish Vasquez MD GENERAL IMAGING Fin al Result * XR SPINE CERVICAL 2 VIEWS (11/23/2024 12:31 PM CDT) Anatomical Region Laterality Modality CERVICAL SPINE Digital Radiogra phy 11/23/2024 12:4 2 PM CDT Narrative 11/23/2024 12:42 PM CDT For Patients: As a result of the s , medical imaging exams and procedure reports are released immediately into your electronic medical record. You may view this report before your referring provider. If you have questions, please contact your health care provider. Indication: Axial spondyloarthritis. Technique: Cervical spine, two views Comparison: None. Impression: No disc space narrowing. The cervical facets are unremarkable. Normal alignment. The atlantoaxial interval is unremarkable. No fracture soft tissue swelling. Postoperative changes in the thoracic spine. Dictated by Micah Durham MD @ Nov 23 2024 12:42PM (Electronically Signed) [email or web address] Procedure Note Micah Durham MD - 11/23/2024 For Patients: As a result of the s Act, medical imagingexams and procedure reports are released immediately into your electronicmedical record. You may view this report before your referring provider.If you have questions, please contact your health care provider. Indication: Axial spondyloarthritis. Technique: Cervical spine, two views Comparison: None. Impression: No disc space narrowing. The cervical facets are unremarkable. Normalalignment. The atlantoaxial interval is unremarkable. No fracture softtissue swelling. Postoperative changes in the thoracic spine. Dictated by Micah Durham MD @ Nov 23 2024 12:42PM (Electronically Signed) [email or web address] Manish Vasquez MD GENERAL IMAGING Fin al Result * CT CHEST PE STUDY (11/07/2024 6:59 PM CDT) Anatomical Region Laterality Modality CHEST, THORAX, HEART Computed To mography 11/07/2024 6:59 PM CDT Impressions 11/07/2024 7:12 PM CDT 1. No pulmonary embolism. Lungs are clear. Narrative 11/07/2024 7:12 PM CDT For Patients: As a result of the Cures Act, medical imaging exams and procedure reports are released immediately into your electronic medical record. You may view this report before your referring provider. If you have questions, please contact your health care provider. EXAM: CT CHEST PE STUDY LOCATION: [facility] MEDICAL IMAGING DATE: 11/07/2024 INDICATION: Pulmonary embolism (PE) suspected, low to intermediate prob, positive D-dimer COMPARISON: 01/03/2024 TECHNIQUE: CT chest pulmonary angiogram during arterial phase injection of IV contrast. Multiplanar reformats and MIP reconstructions were performed. Dose reduction techniques were used. CONTRAST: Omnipaque 350 90 mL FINDINGS: ANGIOGRAM CHEST: Pulmonary arteries are normal caliber and negative for pulmonary emboli. Thoracic aorta is negative for dissection. No CT evidence of right heart strain. LUNGS AND PLEURA: No focal consolidation or effusion. MEDIASTINUM/AXILLAE: Heart is normal in size. No mediastinal, axillary, or hilar adenopathy. CORONARY ARTERY CALCIFICATION: None. UPPER ABDOMEN: Normal. MUSCULOSKELETAL: Degenerative changes of the spine. Status post surgical fixation of spine. Procedure Note Gume Agrawal MD - 11/07/2024 For Patients: As a result of the Cures Act, medical imagingexams and procedure reports are released immediately into your electronicmedical record. You may view this report before your referring provider.If you have questions, please contact your health care provider. EXAM: CT CHEST PE STUDY LOCATION: [facility] MEDICAL IMAGING DATE: 11/07/2024 INDICATION: Pulmonary embolism (PE) suspected, low to intermediate prob,positive D-dimer COMPARISON: 01/03/2024 TECHNIQUE: CT chest pulmonary angiogram during arterial phase injection ofIV contrast. Multiplanar reformats and MIP reconstructions were performed.Dose reduction techniques were used. CONTRAST: Omnipaque 350 90 mL FINDINGS: ANGIOGRAM CHEST: Pulmonary arteries are normal caliber and negative forpulmonary emboli. Thoracic aorta is negative for dissection. No CTevidence of right heart strain. LUNGS AND PLEURA: No focal consolidation or effusion. MEDIASTINUM/AXILLAE: Heart is normal in size. No mediastinal, axillary, orhilar adenopathy. CORONARY ARTERY CALCIFICATION: None. UPPER ABDOMEN: Normal. MUSCULOSKELETAL: Degenerative changes of the spine. Status post surgicalfixation of spine. IMPRESSION: 1. No pulmonary embolism. Lungs are clear. us Gertrude ABERNATHY CT Final R esult * XR FOOT 3 VIEWS LEFT (11/07/2024 6:19 PM CDT) Anatomical Region Laterality Modality FEET, FOOT L Computed Radiogr aphy 11/07/2024 6:19 PM CDT Impressions 11/07/2024 7:06 PM CDT Anatomic alignment. No acute displaced fracture. No significant joint space narrowing. No localizing soft tissue swelling. Narrative 11/07/2024 7:06 PM CDT For Patients: As a result of the Cures Act, medical imaging exams and procedure reports are released immediately into your electronic medical record. You may view this report before your referring provider. If you have questions, please contact your health care provider. EXAM: XR FOOT 3 VIEWS LEFT LOCATION: [facility] MEDICAL IMAGING DATE: 11/07/2024 INDICATION: Pain, swelling. COMPARISON: None. Procedure Note Redd Lopez MD - 11/07/2024 For Patients: As a result of the Cures Act, medical imagingexams and procedure reports are released immediately into your electronicmedical record. You may view this report before your referring provider.If you have questions, please contact your health care provider. EXAM: XR FOOT 3 VIEWS LEFT LOCATION: [facility] MEDICAL IMAGING DATE: 11/07/2024 INDICATION: Pain, swelling. COMPARISON: None. IMPRESSION: Anatomic alignment. No acute displaced fracture. No significant jointspace narrowing. No localizing soft tissue swelling. us Gertrude ABERNATHY GENERAL IMAGING Final R esult * TROPONIN T (HS) ACUTE W/2HR REFLEX (11/07/2024 5:52 PM CDT) TROPONIN T HS <6 6-10 ng/L ng/L 11/07/2024 6:22 PM CDT [facility] Blood BLOOD SPECIMEN / Unknown Non-Lab Venipuncture / Unknown 11/07/2024 5:52 PM CDT 11/07/2024 5:52 PM CDT [facility] - 11/07/2024 6:22 PM CDT hs-cTnT (Elecsys Troponin T Gen 5) concentration (s) above the sex-specific 99th percentile (16 ng/L or greater for males or 11 ng/L or greater for females) are indicative of myocardial injury. If initial hs-cTnT <=100 ng/L at presentation, a 0h/2h ABSOLUTE (ng/L) delta change (rising or falling) of >=10 ng/L suggests a significant change, whereas a 0h/2h delta change <=3 ng/L suggests no significant change. If initial hs-cTnT >100 ng/L at presentation, a 0h/2h/ RELATIVE (percent, %) delta change of 20% is suggested to distinguish patients with acute vs. chronic myocardial injury. There are multiple etiologies that can cause hs-cTnT increases above the 99th percentile (myocardial injury) other than acute myocardial infarction. Clinical context and careful clinical evaluation are critical for diagnosis and risk-stratification. The diagnosis of acute myocardial infarction requires a rising and/or falling pattern in hs-cTnT concentrations with at least one value above the sex-specific 99th percentile PLUS at least one of the following clinical criteria: ischemic symptoms, new or presumed new significant ST-T wave changes or new LBBB, development of pathological Q waves, imaging evidence of new loss of viable myocardium or new regional wall motion abnormality, or identification of intracoronary atherothrombosis or an acute angiographic culprit on coronary angiography. In appropriate low-risk patients with a non-ischemic electrocardiogram without active chest pain with a symptom onset >3-hours without recurrence, a single initial hs-cTnT<6 ng/L identifies patient with a very low risk in emergency department patient population. Gertrude ABERNATHY CHEMISTRY Final R esult Performing Organization Address [facility] de Phone Number [facility] SENDOUT INTERNAL [facility] [id number] [address] [place] [address] * EXTRA TUBE BLUE (11/07/2024 5:52 PM CDT) Blood BLOOD SPECIMEN / Unknown Non-Lab Venipuncture / Unknown 11/07/2024 5:52 PM CDT 11/07/2024 5:52 PM CDT Gertrude ABERNATHY LABORATORY Final R esult Performing Organization Address [facility] Phone Number [facility] SENDOUT INTERNAL [facility] [address] [address] [place] [address] * TSH (11/07/2024 5:52 PM CDT) [facility] TSH 2.95 0.27 - 4.20 uIU/mL 11/07/2024 6:22 PM CDT [facility] Blood BLOOD SPECIMEN / Unknown Non-Lab Venipuncture / Unknown 11/07/2024 5:52 PM CDT 11/07/2024 5:52 PM CDT Narrative [facility] - 11/07/2024 6:22 PM CDT In Adults, TSH values between 5.00 and 10.00 uIU/ml do not necessarily indicate the presence of Hypothyroidism. Correlation with clinical findings such as presence of goiter and/or Thyroperoxidase (TPO) Antibody may be helpful. For more information please refer to HILARY 2004; 291: 228-238. Gertrude ABERNATHY CHEMISTRY Final R esult Performing Organization Address [facility] de Phone Number [facility] SENDOUT INTERNAL [facility] [address] [address] [place] [address] * CBC W PLT NO DIFF (11/07/2024 5:52 PM CDT) WHITE BLOOD COUNT 10.2 4.5 - 11.0 thou/cu mm 11/07/2024 5:54 PM CDT [facility] RED BLOOD COUNT 4.49 4.00 - 5.20 mil/cu mm 11/07/2024 5:54 PM CDT [facility] HEMOGLOBIN 14.1 12.0 - 16.0 g/dL 11/07/2024 5:54 PM CDT [facility] HEMATOCRIT 41.7 33.0 - 51.0 % 11/07/2024 5:54 PM CDT [facility] MCV 93 80 - 100 fL 11/07/2024 5:54 PM CDT [facility] MCH 31.4 26.0 - 34.0 pg 11/07/2024 5:54 PM CDT [facility] MCHC 33.8 32.0 - 36.0 g/dL 11/07/2024 5:54 PM CDT [facility] RDW 12.8 11.5 - 15.5 % 11/07/2024 5:54 PM CDT [facility] PLATELET COUNT 326 140 - 440 thou/cu mm 11/07/2024 5:54 PM CDT [facility] MPV 9.1 6.5 - 11.0 fL 11/07/2024 5:54 PM CDT [facility] NRBC 0.0 % 11/07/2024 5:54 PM CDT [facility] ABS NRBC 0.0 thou /cu mm 11/07/2024 5:54 PM CDT [facility] Blood BLOOD SPECIMEN / Unknown Non-Lab Venipuncture / Unknown 11/07/2024 5:52 PM CDT 11/07/2024 5:52 PM CDT us Gertrude ABERNATHY HEMATOLOGY Final R esult [facility] SENDOUT INTERNAL ZIP [address] [address] [place] [address] * (ABNORMAL) D-DIMER,QUANTITATIVE (11/07/2024 5:52 PM CDT) [facility] D-DIMER,QUANTI TATIVE 0.52(H) <=0.49 FEU mcg/mL 11/07/2024 6:28 PM CDT [facility] Blood BLOOD SPECIMEN / Unknown Non-Lab Venipuncture / Unknown 11/07/2024 5:52 PM CDT 11/07/2024 5:52 PM CDT [facility] - 11/07/2024 6:28 PM CDT The cut off value for exclusion of Deep Vein Thrombosis and / or Pulmonary Embolism is 0.50 FEU mcg/mL For patients greater than 50 years of age the upper limit is age dependent and was calculated with the formula: (PATIENT AGE x 0.01) FEU mcg/mL = Upper limit of normal range Gertrude ABERNATHY HEMATOLOGY Final R esult Performing Organization Address City/[facility]/ZIP Co de Phone Number [facility] SENDOUT INTERNAL ZIP [address] [place] [address] * MAGNESIUM (11/07/2024 5:52 PM CDT) [facility] MAGNESIUM 2.2 1.6 - 2.6 mg/dL 11/07/2024 6:22 PM CDT [facility] Blood BLOOD SPECIMEN / Unknown Non-Lab Venipuncture / Unknown 11/07/2024 5:52 PM CDT 11/07/2024 5:52 PM CDT Gertrude ABERNATHY CHEMISTRY Final R esult [facility] SENDOUT INTERNAL ZIP [address] [place] [address] * (ABNORMAL) HEPATIC FUNCTION PANEL (11/07/2024 5:52 PM CDT) [facility] ALBUMIN 4.0 4.0 - 4.9 g/dL 11/07/2024 6:22 PM CDT [facility] PROTEIN,TOTAL 7.2 6.0 - 8.0 g/dL 11/07/2024 6:22 PM CDT [facility] BILIRUBIN,TOTAL 0.2 0.0 - 1.2 mg/dL 11/07/2024 6:22 PM CDT [facility] BILIRUBIN,DIRECT 0.1 0.0 - 0.2 mg/dL 11/07/2024 6:22 PM CDT [facility] BILIRUBIN,INDIRE CT 0.1(L) 0.2 - 0.8 mg/dL 11/07/2024 6:22 PM CDT [facility] ALK PHOSPHATASE 42 35 - 104 IU/L 11/07/2024 6:22 PM CDT [facility] ALT (SGPT) 9(L) 10 - 35 IU/L 11/07/2024 6:22 PM CDT [facility] AST (SGOT) 25 10 - 35 IU/L 11/07/2024 6:22 PM T [facility] Blood BLOOD SPECIMEN / Unknown Non-Lab Venipuncture / Unknown 11/07/2024 5:52 PM CDT 11/07/2024 5:52 PM CDT Gertrude ABERNATHY CHEMISTRY Final R esult [facility] SENDOUT INTERNAL ZIP [address] [place] [address] * BASIC METABOLIC PANEL (11/07/2024 5:52 PM CDT) SODIUM 139 136 - 145 mmol/L 11/07/2024 6:22 PM CDT [facility] POTASSIUM 4.0 3.5 - 5.1 mmol/L 11/07/2024 6:22 PM T [facility] CHLORIDE 107 98 - 107 mmol/L 11/07/2024 6:22 PM CDT [facility] CO2,TOTAL 22 22 - 29 mmol/L 11/07/2024 6:22 PM CDT [facility] ANION GAP 10 5 - 18 11/07/2024 6:22 PM T [facility] GLUCOSE 89 70 - 99 mg/dL 11/07/2024 6:22 PM CDT [facility] CALCIUM 9.7 8.8 - 10.4 mg/dL 11/07/2024 6:22 PM T [facility] Comment: Reference ranges for this test were updated on 06/20/2024 to reflect our healthy population more accurately. Reference range changes are not retroactively applied to results, but previous results using the same methodology can be interpreted in the context of the new reference range. BUN 12 6 - 20 mg/dL 11/07/2024 6:22 PM CDT [facility] CREATININE 0.74 0.50 - 0.90 mg/dL 11/07/2024 6:22 PM CDT [facility] BUN/CREAT RATIO 16 10 - 20 6:22 PM CDT [facility] eGFR >90 >90 mL/min/1.7 3m2 11/07/2024 6:22 PM CDT [facility] Comment:As of 2021, eG FR is calculated by the CKD-EPI creatinine equation without race adjustment. eGFR can be influenced by muscle mass, exercise, and diet. The reported eGFR is an estimation only and is only applicable if the renal function is stable. Blood BLOOD SPECIMEN / Unknown Non-Lab Venipuncture / Unknown 11/07/2024 5:52 PM CDT 11/07/2024 5:52 PM CDT us Gertrude ABERNATHY CHEMISTRY Final R esult [facility] SENDOUT INTERNAL ZIP [address] [place] [address] * EKG 12 LEAD (11/07/2024 5:37 PM CDT) Interpretation Normal sinus rhythm Nonspecific T wave abnormality Abnormal ECG BEYOND NOW Ventricular Rate 63 BPM BEYOND NOW Atrial Rate 63 BPM BEYOND NOW P-R Interval 152 ms BEYOND NOW QRS Duration 90 ms BEYOND NOW QT 404 ms BEYOND NOW QTc 413 ms BEYOND NOW P [place] 25 degrees BEYOND NOW R [place] 2 degrees BEYOND NOW T [place] 12 degrees BEYOND NOW 11/07/2024 5:37 PM CDT 11/08/2024 10:55 AM CDT us Gertrude ABERNATHY EKG ORD Final R esult BEYOND NOW [place], [place] * US VENOUS LOWER EXTREMITY LEFT (11/07/2024 12:47 PM CDT) Anatomical Region Laterality Modality LEGS, LEG L, Abdomen Ultrasound 11/07/2024 1:00 PM CDT Narrative 11/07/2024 1:00 PM CDT For Patients: As a result of the Cures Act, medical imaging exams and procedure reports are released immediately into your electronic medical record. You may view this report before your referring provider. If you have questions, please contact your health care provider. Indication: Left leg swelling Technique: Grayscale common grayscale compression, color Doppler, spectral Doppler and augmentation technique was utilized for evaluating the left lower extremity venous system. Comparison: None Findings: The following veins were study: Right common femoral vein. On the left, the common femoral vein, greater saphenous vein, proximal profunda vein, femoral vein, popliteal vein, peroneal and posterior tibial veins were studied Impression: There is no evidence of deep venous thrombosis in the left lower extremity or the right common femoral vein Dictated by Chris Sanders MD @ 11/07/2024 1:00:11 PM (Electronically Signed) Procedure Note Chris Sanders MD - 11/07/2024 For Patients: As a result of the Cures Act, medical imagingexams and procedure reports are released immediately into your electronicmedical record. You may view this report before your referring provider.If you have questions, please contact your health care provider. Indication: Left leg swelling Technique: Grayscale common grayscale compression, color Doppler, spectral Dopplerand augmentation technique was utilized for evaluating the left lowerextremity venous system. Comparison: None Findings: The following veins were study: Right common femoral vein. On the left,the common femoral vein, greater saphenous vein, proximal profunda vein,femoral vein, popliteal vein, peroneal and posterior tibial veins werestudied Impression: There is no evidence of deep venous thrombosis in the left lower extremityor the right common femoral vein Dictated by Chris Sanders MD @ 11/07/2024 1:00:11 PM (Electronically Signed) Mimi ABERNATHY US Final Result * US VENOUS UPPER EXTREMITY RIGHT (10/31/2024 4:28 PM CDT) Anatomical Region Laterality Modality ARMS, ARM R Ultrasound 10/31/2024 4:06 PM CDT Narrative 11/01/2024 11:58 AM CDT VASCULAR ULTRASOUND REPORT MICKY ANGULO : 2000 Study Date: 10/31/2024 4:06:21 PM Age: 24 years Tech: PAMELA Gender: F Referring MD: ELEUTERIO PÉREZ III Site: [facility] Study performed: Thoracic outlet testing, (right). Indication for Study: Chronic right shoulder pain TECHNIQUE: Lower/upper extremity veins were examined with duplex ultrasound, color-flow and spectral Doppler per exam protocol. Vein compressibility by transducer pressure was used to evaluate presence/absence of DVT/SVT. Venous flow and competence was evaluated by flow augmentation maneuvers per exam protocol. Insufficiency studies were performed with the patient in upright position, with vein diameters measured in mm, and reflux was measured in seconds by caliper method. IMPRESSION: 1. No evidence of deep vein thrombosis involving the right central veins including the axillary, subclavian, and right innominate veins. 2. Venous waveforms and velocity measured with the arm at 0 degrees, 90 degrees, and 180 degrees. No significant change from 0 to 90 degrees. At 180 degrees abducted, the vein remains patent but there is increase in the velocity. This finding may suggest partial venous compression with arm abducted at 180 degrees. This may be a physiologic finding, clinical correlation is advised. COMPARISON: No prior study available for comparison. FINDINGS: No evidence of deep venous thrombosis involving the right central veins. Right SCV mid 0 degrees: 48 cm/s 90 degrees: 25 cm/s 180 degrees: 108 cm/s. Jeffy Chun MD. Electronically signed on 11/01/2024 11:58:03 AM This study was performed and interpreted by a service accredited by the Intersocietal Accreditation Commission (ICA/Vascular), www.intersocietal.org/vascular Report generated by [employer]. Final Procedure Note Jeffy Chun MD - 11/01/2024 VASCULAR ULTRASOUND REPORT MICKY ANGULO : 2000 Study Date: 10/31/2024 4:06:21 PM Age: 24 years Tech: PAMELA Gender: F Referring MD: ELEUTERIO PÉREZ III Site: [facility] Study performed: Thoracic outlet testing, (right). Indication for Study: Chronic right shoulder pain TECHNIQUE: Lower/upper extremity veins were examined with duplex ultrasound,color-flow and spectral Doppler per exam protocol. Vein compressibility bytransducer pressure was used to evaluate presence/absence of DVT/SVT.Venous flow and competence was evaluated by flow augmentation maneuversper exam protocol. Insufficiency studies were performed with the patientin upright position, with vein diameters measured in mm, and reflux wasmeasured in seconds by caliper method. IMPRESSION: 1. No evidence of deep vein thrombosis involving the right central veinsincluding the axillary, subclavian, and right innominate veins. 2. Venous waveforms and velocity measured with the arm at 0 degrees, 90degrees, and 180 degrees. No significant change from 0 to 90 degrees. At180 degrees abducted, the vein remains patent but there is increase in thevelocity. This finding may suggest partial venous compression with armabducted at 180 degrees. This may be a physiologic finding, clinicalcorrelation is advised. COMPARISON: No prior study available for comparison. FINDINGS: No evidence of deep venous thrombosis involving the right central veins. Right SCV mid 0 degrees: 48 cm/s 90 degrees: 25 cm/s 180 degrees: 108 cm/s. Jeffy Chun MD. Electronically signed on 11/01/2024 11:58:03 AM This study was performed and interpreted by a service accredited by theIntersocietal Accreditation Commission (ICA/Vascular),www.intersocietal.org/vascular Report generated by [employer]. Final us Eleuterio Pérez III, MD Nguyễn al Result * US ARTERIAL UPPER EXTREMITY RIGHT (10/31/2024 4:24 PM CDT) Anatomical Region Laterality Modality ARMS, ARM R Ultrasound 10/31/2024 3:55 PM CDT Narrative 11/01/2024 11:52 AM CDT VASCULAR ULTRASOUND REPORT MICKY ANGULO : 2000 Study Date: 10/31/2024 3:55:13 PM Age: 24 years Tech: PAMELA Gender: F Referring MD: ELEUTERIO PÉREZ III Site: [facility] Study performed: Upper extremity thoracic outlet testing, (right). Indication for study: Chronic right shoulder pain TECHNIQUE: Lower/upper extremity arteries were examined per exam protocol by duplex ultrasound, color-flow and spectral Doppler. Peak systolic velocities (PSV), Doppler waveform quality, velocity ratios and vessel size in cm, were documented at protocol specific sites. Physiologic data including segmental pressures, ankle/brachial index (BINA), digit PPG recordings, laser Doppler flowmetry and digit temperatures were documented at sites per exam protocol and test requirements. IMPRESSION: 1. No evidence of stenosis or aneurysm involving the right subclavian and axillary arteries. 2. Patent right vertebral artery with antegrade flow. 3. Bilateral upper extremity arterial waveforms assessed with thoracic outlet maneuvers. On the right side, severely dampened arterial waveform with arms abducted 180 degrees and no significant change with all other maneuvers including the symptomatic position. On the left side, severely dampened arterial waveform with arms abducted 180 degrees and dampened waveform in the position. COMPARISON: No prior study available for comparison. FINDINGS: No evidence of hemodynamically significant stenosis in the right subclavian and axillary arteries. Right vertebral artery demonstrates antegrade flow. MEASUREMENTS: + + + RIGHT Velocity cm/s + + + CCA PRX 120 + + + SCA PRX 142 + + + VERT ART 61 + + + SCA DST 180 + + + AXILLARY ART 138 + + + Criteria: PSV (cm/sec) Stenosis Plaque imaged Vr Normal <125 No Mild 125-180 <50% Yes <2 Moderate >180 50-74% Yes >2 Severe >400 75-99% Yes >4 Occlusion occlusion plaque/thrombus no detectable flow Thoracic Outlet Testing +--------+ +--------+ RIGHT LEFT +--------+ +--------+ normal BASELINE normal +--------+ +--------+ normal ARMS 90 degree normal +--------+ +--------+ positive ARMS 180 degree positive +--------+ +--------+ normal positive +--------+ +--------+ normal HEAD R positive +--------+ +--------+ normal HEAD I positive +--------+ +--------+ normal SYMPTOMATIC normal +--------+ +--------+ Reduction PPG amplitude: Normal= <50% Mild= 50-75% Positive= >75% Jeffy Chun MD. Electronically signed on 11/01/2024 11:52:19 AM This study was performed and interpreted by a service accredited by the Intersocietal Accreditation Commission (ICA/Vascular), www.[email or web address].org/vascular Report generated by [employer]. Final Procedure Note Jeffy Chun MD - 11/01/2024 VASCULAR ULTRASOUND REPORT MICKY ANGULO : 2000 Study Date: 10/31/2024 3:55:13 PM Age: 24 years Tech: CHAITANYAM Gender: F Referring MD: ELEUTERIO PÉREZ III Site: [facility] Study performed: Upper extremity thoracic outlet testing, (right). Indication for study: Chronic right shoulder pain TECHNIQUE: Lower/upper extremity arteries were examined per exam protocol by duplexultrasound, color-flow and spectral Doppler. Peak systolic velocities(PSV), Doppler waveform quality, velocity ratios and vessel size in cm,were documented at protocol specific sites. Physiologic data includingsegmental pressures, ankle/brachial index (BINA), digit PPG recordings,laser Doppler flowmetry and digit temperatures were documented at sitesper exam protocol and test requirements. IMPRESSION: 1. No evidence of stenosis or aneurysm involving the right subclavian andaxillary arteries. 2. Patent right vertebral artery with antegrade flow. 3. Bilateral upper extremity arterial waveforms assessed with thoracicoutlet maneuvers. On the right side, severely dampened arterial waveformwith arms abducted 180 degrees and no significant change with all othermaneuvers including the symptomatic position. On the left side, severelydampened arterial waveform with arms abducted 180 degrees and dampenedwaveform in the position. COMPARISON: No prior study available for comparison. FINDINGS: No evidence of hemodynamically significant stenosis in the rightsubclavian and axillary arteries. Right vertebral artery demonstratesantegrade flow. MEASUREMENTS: + + + RIGHT Velocity cm/s + + + CCA PRX 120 + + + SCA PRX 142 + + + VERT ART 61 + + + SCA DST 180 + + + AXILLARY ART 138 + + + Criteria: PSV (cm/sec) Stenosis Plaque imaged Vr Normal <125 No Mild 125-180 <50% Yes <2 Moderate >180 50-74% Yes >2 Severe >400 75-99% Yes >4 Occlusion occlusion plaque/thrombus no detectable flow Thoracic Outlet Testing +--------+ +--------+ RIGHT LEFT +--------+ +--------+ normal BASELINE normal +--------+ +--------+ normal ARMS 90 degree normal +--------+ +--------+ positive ARMS 180 degree positive +--------+ +--------+ normal positive +--------+ +--------+ normal HEAD R positive +--------+ +--------+ normal HEAD I positive +--------+ +--------+ normal SYMPTOMATIC normal +--------+ +--------+ Reduction PPG amplitude: Normal= <50% Mild= 50-75% Positive= >75% Jeffy Chun MD. Electronically signed on 11/01/2024 11:52:19 AM This study was performed and interpreted by a service accredited by theIntersocietal Accreditation Commission (ICA/Vascular),www.[email or web address].org/vascular Report generated by [employer]. Final Eleuterio Pérez III, MD [facility] al Result * HBSAG (HBS) [74158.2] (10/09/2024 12:02 PM PHLEBOTOMY SPECIALIST) HEPATITIS B SURFACE ANTIGEN NON-REACTI VE NON-REACTI VE [employer] Comment: For additional information, please refer to http://[employer]ale/faq/FXV311 (This link is being provided for informational/ educational purposes only.) Blood BLOOD SPECIMEN / Unknown 10/09/2024 12:02 PM PHLEBOTOMY SPECIALIST 10/09/2024 12:02 PM PHLEBOTOMY SPECIALIST Vane ABERNATHY SEND OUTS Final Res ult [employer] [facility] [address] [place] [address], [facility] [address] [place] [address] * ANTI HCV [60033.2] (10/09/2024 12:02 PM PHLEBOTOMY SPECIALIST) HEPATITIS C ANTIBODY NON-REACTI VE NON-REACT ANGY [employer] Comment: HCV antibody was non-reactive. There is no laboratory evidence of HCV infection. In most cases, no further action is required. However, if recent HCV exposure is suspected, a test for HCV RNA (test code 19154) is suggested. For additional information please refer to http://Couple.Shipey/faq/LEM68y0 (This link is being provided for informational/ educational purposes only.) Blood BLOOD SPECIMEN / Unknown 10/09/2024 12:02 PM PHLEBOTOMY SPECIALIST 10/09/2024 12:02 PM PHLEBOTOMY SPECIALIST Vane ABERNATHY SEND OUTS Final Res ult [employer] [facility] [address] [place] [address], [facility] [facility] [address] [place] [address] * ANTI HIV 1/2 [24079.0] (10/09/2024 12:02 PM PHLEBOTOMY SPECIALIST) [facility] HIV AG/AB, 4TH GEN NON-REACT ANGY NON-REACT ANGY [employer] [place] Comment: HIV-1 antigen and HIV-1/HIV-2 antibodies were not detected. There is no laboratory evidence of HIV infection. PLEASE NOTE: This information has been disclosed to you from records whose confidentiality may be protected by state law. If your state requires such protection, then the state law prohibits you from making any further disclosure of the information without the specific written consent of the person to whom it pertains, or as otherwise permitted by law. A general authorization for the release of medical or other information is NOT sufficient for this purpose. For additional information please refer to http://education.[employer].GrabInbox/faq/MDZ848 (This link is being provided for informational/ educational purposes only.) The performance of this assay has not been clinically validated in patients less than 2 years old. Blood BLOOD SPECIMEN / Unknown 10/09/2024 12:02 PM PHLEBOTOMY SPECIALIST 10/09/2024 12:02 PM PHLEBOTOMY SPECIALIST us Vane ABERNATHY SEND OUTS Final Res ult [employer] [facility] [address] [place] [address], [email or web address] [place] [address] [place] [address] * TREPONEMA PALLIDUM [63375.1] (10/09/2024 12:00 PM PHLEBOTOMY SPECIALIST) TREPONEMA PALLIDUM Non-Reacti ve Non-Reacti ve 10/09/2024 11:32 PM PHLEBOTOMY SPECIALIST [facility] Blood BLOOD SPECIMEN / Unknown [facility] / Unknown 10/09/2024 12:00 PM PHLEBOTOMY SPECIALIST 10/09/2024 12:01 PM PHLEBOTOMY SPECIALIST Vane ABERNATHY SEND OUTS Final Res ult [facility] [address] [place] [address], [place] * GC CHLAMYDIA [[id number]] - urine (10/09/2024 12:00 PM PHLEBOTOMY SPECIALIST) CHLAMYDIA PROBE Negative 12:56 PM PHLEBOTOMY SPECIALIST [facility] N GONORRHOEAE PROBE Negative 10/10/2024 12:56 PM PHLEBOTOMY SPECIALIST [facility] Other URINE SPECIMEN / Unknown Non-Blood / Unknown 10/09/2024 12:00 PM PHLEBOTOMY SPECIALIST 10/09/2024 12:01 PM PHLEBOTOMY SPECIALIST Vane ABERNATHY MICROBIOLOGY Final Res ult [facility] [address] [place] [address], [place] * (ABNORMAL) HEALTH POLICY NURSE THIN PREP PAP SCREEN IMAGED [[id number]] (01/25/2024 1:25 PM CDT) Case Report Gynecologic Cytology Report Case: [id number] Authorizing Provider: Vane Black PA Collected: 01/25/2024 1325 Ordering Location: [facility] Received: 01/25/2024 1409 Clinic First Screen: Jenelle Perry Pathologist: Deandra Herrera MD Specimen: HEALTH POLICY NURSE ThinPrep Vial Screening, Cervical 02/07/2024 11:04 AM CDT [facility] INTERPRETATION/ RESULT LOW GRADE SQUAMOUS INTRAEPITHELIAL LESION (LSIL)(A) (none) 02/07/2024 11:04 AM CDT [facility] at 1104 CDT SPECIMEN ADEQUACY Satisfactory for evaluation Endocervical component present 02/07/2024 11:04 AM CDT [facility] Date of LMP Unknown 02/07/2024 11:04 AM CDT [facility] Last Pap Date 05/30/2020 02/07/2024 11:04 AM CDT [facility] Last Pap Result NIL 11:04 AM CDT [facility] Abnormal Pap or [place] Bx in last 5 years No 02/07/2024 11:04 AM CDT [facility] Menstrual Status Hormonally Suppressed 02/07/2024 11:04 AM CDT [facility] [place] Bx Done Today No 02/07/2024 11:04 AM CDT [facility] Additional Information None given 02/07/2024 11:04 AM CDT [facility] Comment: Cytology is screened at [facility] - [address] [address] and [facility] - [address], [place] [address] and [facility] - [address] [place] [address] Interpreted at [facility] - [address], [place] [address] Automated Review Successful 02/07/2024 11:04 AM CDT [facility] Comment:Specimen processed s uccessfully by automated outside machinist helper device, ThinPrep Imaging System, [employer] Note The pap test is a [...] and malignant lesions. 02/07/2024 11:04 AM CDT [facility] Other (Cervical) Non-Blood / Unknown 01/25/2024 1:25 PM CDT 01/25/2024 2:09 PM CDT us Vane ABERNATHY PATHOLOGY/CYTOLOGY Final Result [facility] [address] [place] [address], [place] from Last 3 Months or Most Recently Relevant to Health Maintenance Additional Health Concerns Infection Onset Date Last Indicated RESPIRATORY SYNCYTIAL VIRUS (RSV) 12/15/2024 12/15/2024 [address] [place] [address] [facility] [address] [place] [address] [employer] DIRECTOR INSURANCE [address] [place] [address] [place] [employer]K [employer]NAGMENT Advance Directives * Full Code (Latest Code Status on File) Date Activated Date Inactivated Comments 02/14/2024 8:57 AM 02/14/2024 9:15 PM Question Answer Comments Code Status Discussion: Reviewed Preferences * Full Code Date Activated Date Inactivated Comments 04/14/2023 12:27 PM 04/14/2023 5:32 PM Question Answer Comments Code Status Discussion: Discussed Care Teams Sheet Metal Insulator Relationship Specialty Start Date End Date Vane Black PA [address] [place] [address] PCP - General Physician Service Station Manager 02/15/23 Carson Cardona MD [address] [facility] [address] [facility] [address] [place] [address] Rheumatology 03/20/24 Nazia Yoon [address] [place] [address] Mental Health Pricing Analyst Care Guide 11/08/24
--- OUTSIDE RECORDS SUMMARY | 2024-12-17 15:38 | XMS_ITS | Clinical Summary ---
Author Organization [place] Address [address] [place] [address] Care Team Providers Care Baller Tender Name Role Phone Sukhwinder Gerard MD Unavailable Vane Black Primary Care Provider [phone] Jese Simmons DO Unavailable [phone] Vasquez Abdullahi MD Unavailable [phone] Rocky Henley MD Unavailable [phone]- [phone] Allergies Active Allergy Reactions Criticality Noted Date Comments [place] Oil 04/27/2018 Other reaction(s): GI Upset [place] Oil 04/27/2018 Other reaction(s): GI Upset Crab [...] Active hydrOXYzine (ATARAX) 25 MG tablet 11/27/19 Active drospirenone-et hinyl estradiol (KALEIGH) 3-0.03 MG [...] Active fluticasone (FLONASE) 50 MCG/ACT nasal spray [place] 1 spray into both nostrils daily. 16 [...] tablet Take 10 mg by mouth. 04/26/20 24 Active diclofenac (VOLTAREN) 1 % topical gel [...] Take 75 mg by mouth. Active rizatriptan (MAXALT-TELEPHONE CLAIMS REPRESENTATIVE) 5 MG ODT DISSOLVE 1 TABLET ON THE TONGUE TWICE DAILY NEEDED FOR MIGRAINE. GIVE AT MINIMUM TWO HOURS APART. MAXIMUM DOSE 30 MG PER 24 HOURS 05/21/20 24 Active Suvorexant (BELSOMRA) 10 MG tablet Take 10 mg by mouth at bedtime. 02/15/20 24 Active lithium (ESKALITH CR/LITHOBID) 450 MG CR tablet Take 1 tablet by mouth 2 times daily. 10/25/19 25 Active pregabalin (LYRICA) 100 MG capsule TAKE 1 CAPSULE BY MOUTH TWICE DAILY FOR 15 DAYS 09/22/19 25 Active clonazePAM (KLONOPIN) 1 MG tablet 11/19/19 25 Active tiZANidine (ZANAFLEX) 4 MG tablet TAKE 1 TABLET BY MOUTH EVERY BEDTIME FOR MUSCLE TIGHTNESS 10/09/19 25 Active levonorgestrel (MIRENA) 52 MG (20 mcg/day) IUD by Intrauterine route once. Active Active Problems Problem Noted Date Diagnosed [...] (05/31/2024): Added automatically from request for surgery [id number] Added automatically from request for surgery [id number] Added automatically from request for surgery [id number] Anorexia nervosa, restrictin g type, in partial [...] Encounters Date Type Department Care Team Description 12/04/2024 11:00 AM CDT Ancillary Procedure [facility] [place] [address] [facility] [address] [place] [phone] Rocky Henley MD Pain of left lower extremity 12/04/2024 Travel 11/28/2024 Telephone [facility] [place] [address] [place] [phone] Rocky Henley MD Appointment 11/23/2024 2:10 PM CDT Office Visit [facility] [place] [address] [place] [phone] Rocky Henley MD Pain of left lower extremity (Primary Dx); Thoracic outlet syndrome of right thoracic outlet 11/23/2024 Travel 11/18/2024 8:08 PM CDT - 11/18/2024 10:51 PM CDT Emergency [facility] Emergency Dept [address] [place] [address] Eron Sinha MD Nonintractable headache, unspecified chronicity pattern, unspecified headache type Discharge Disposition: Home or Self Care 11/18/2024 Travel 11/11/2024 6:47 PM CDT - 11/11/2024 9:38 PM CDT Emergency [facility] Emergency Dept [address] [place] [facility] [place] [address] Obinna Clifford MD Pain of right lower leg; Right leg swelling Discharge Disposition: Home or Self Care 11/11/2024 Travel 11/09/2024 Telephone [facility] [place] [address] [place] [phone] Nurse, Sh [facility] Referral 11/09/2024 Transcribe Orders [facility] [place] [address] [facility] 3rd [place] [address] Mimi Keita PA Thoracic outlet syndrome of right thoracic outlet (Primary Dx) 11/07/2024 Medical Correspondence [facility] Information Management [address] [facility] [address] [place] [address] Scan, Non-Provider from Last 3 Months Immunizations Name Administration Dates Next Due DTAP (<7y) 04/29/2004, 2,08/25/2001,10/25,1999,1999,1999 HIB (PRP-T) 04/26/2000, 0,1999,07/01 HPV Quadrivalent 12/14/2014,07/06/2014, 4 HepB 04/26/2000,1999,1999 Hepatitis A (Vaqta/Havrix)(P eds 12m-18y) 12/14/2014,04/20/2014 Influenza (IIV3) PF 05/24/2012, 0,08/23/2007,07/25 Influenza Vaccine >6 months,quad, PF 08/25/2018, 07/24/2017,07/03/2016 MMR (MMRII) 04/29/2004,04/26/2000 Meningococcal ACWY (Menactra ) 05/21/2010 Pneumococcal (PCV 7) 04/25/2001,10/25/2000 Poliovirus, inactivated (IPV) 04/29/2004 ,08/25/2001,10/25/2000,08/25,1999 TDAP Vaccine (Adacel) 05/21/2010 Varicella (Varivax) 05/21/2010,04/26/2000 Family History Medical History Relation Comments [...] on file 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 Gender Identity Not on file Sexual Orientation Not on file Last Filed Vital Signs Vital Sign Reading Time Taken Comments Blood Pressure 108/72 11/23/2024 2:15 PM CDT Pulse 78 11/23/2024 2:14 PM CDT Temperature 36.8 C (98.2 F) 11/18/2024 8:06 PM CDT Respiratory Rate 18 11/18/2024 8:06 PM CDT Oxygen Saturation 98% 11/23/2024 2:14 PM CDT Inhaled Oxygen Concentration - - Weight 91.9 kg (202 lb 9.6 oz) 11/18/2024 7:59 P M CDT Height 170.2 cm (5' 7) 11/18/2024 7:59 PM CDT Body Mass Index 31.73 11/18/2024 7:59 PM CDT Plan of Treatment Upcoming Encounters Date Type Department Care Team (Late st Contact Info) Description 01/17/2025 1:45 PM CDT Office Visit [facility] [address] [phone] Rocky Henley MD [address] [place] [address] Ke Contreras MD [address] [place] [phone] 01/25/2025 2:10 PM CDT Office Visit [facility] [place] [address] [place] [phone] Rocky Henley MD [address] [place] [address] Health Maintenance Due Date Last Done Comments ADVANCE CARE PLANNING 1999 ANNUAL REVIEW OF HM ORDERS 1999 Pneumococcal Vaccine: Pediatrics (0 to 5 Years) and At-Risk Patients (6 to 49 Years) (1 of 2 - PCV) 2018 04/25/2001, 10/25/2000 ZOSTER IMMUNIZATION (1 of 2) 2018 TSH W/FREE T4 REFLEX 02/12/2021 02/13/2020, 02/13/2020, 11/27/2019, Additional history exists COVID-19 Vaccine (6 - Mixed Product risk season) 2024 05/08/2024, 08/23/2023, 06/26/2022, Additional history exists YEARLY PREVENTIVE VISIT 01/24/2025 01/25/20 24, 06/03/2021, 05/28/2020 PAP 01/24/2027 01/25/2024, 05/28/2020 DTAP/TDAP/TD IMMUNIZATION (8 - Td or Tdap) 01/24/2034 01/25/2024, 05/21/2010, 04/29/2004, Additional history exists HEPATITIS B IMMUNIZATION Completed 000, 04/26/2000, 1999, Additional history exists MENINGITIS IMMUNIZATION Aged Out 05/21/2010 No l onger eligible based on patient's age to complete this topic HPV IMMUNIZATION Completed 12/14/2014, , 04/20/2014 INFLUENZA VACCINE Completed 05/08/2024, , 06/26/2022, Additional history exists CHLAMYDIA SCREENING Discontinued 10/09/2024, 04/14/2024, 01/25/2024, Additional history exists HEPATITIS C SCREENING Completed 10/09/2024, 024 HIV SCREENING Completed 10/09/2024, 10/2023, 09/03/2022 MENINGITIS B IMMUNIZATION Aged Out No longer eligible based on patient's age to complete this topic Procedures Procedure Name Priority Date/Time Associated Diagnosis Comments US VENOUS COMPETENCY BILATERAL Routine 12/04/2024 11:42 AM CDT Pain of left lower extremity CTA HEAD NECK W CONTRAST STAT 11/18/2024 9:[address] HEAD W/O CONTRAST STAT 11/18/2024 9:23 PM CDT CBC WITH PLATELETS & DIFFERENTIAL STAT 11/18/2024 8:36 PM CDT TROPONIN T, HIGH SENSITIVITY Add-On 11/18/2024 8:36 PM CDT EXTRA RED TOP TUBE STAT 11/18/2024 8: 36 PM CDT EXTRA BLUE TOP TUBE STAT 11/18/2024 8 :36 PM CDT CBC WITH PLATELETS AND DIFFERENTIAL STAT 11/18/2024 8:36 PM CDT EXTRA TUBE STAT 11/18/2024 8:36 PM CDT BASIC METABOLIC PANEL STAT 11/18/2024 8:36 PM CDT US LOWER EXTREMITY VENOUS DUPLEX RIGHT STAT 11/11/2024 7:55 PM CDT EXTRA BLUE TOP TUBE STAT 11/11/2024 7 :26 PM CDT EXTRA TUBE STAT 11/11/2024 7:26 PM CDT CBC WITH PLATELETS & DIFFERENTIAL STAT 11/11/2024 7:24 PM CDT CBC WITH PLATELETS AND DIFFERENTIAL STAT 11/11/2024 7:24 PM CDT LITHIUM LEVEL STAT 11/11/2024 7:24 PM CDT NT PROBNP INPATIENT STAT 11/11/2024 7 :24 PM CDT MAGNESIUM STAT 11/11/2024 7:24 PM CDT CK TOTAL STAT 11/11/2024 7:24 PM CDT HCG QUALITATIVE STAT 11/11/2024 7:24 PM CDT HEPATIC FUNCTION PANEL STAT 11/11/2024 7:24 PM CDT BASIC METABOLIC PANEL STAT 11/11/2024 7:24 PM CDT TSH Routine 02/13/2020 5:40 PM CDT Major depression, single episode CHLAMYDIA TRACHOMATIS PCR Routine 01/08/2020 4:10 PM CDT Vaginal discharge Concern about STD in female without diagnosis from Last 3 Months or Most Recently Relevant to Health Maintenance Results * US Venous Competency Bilateral (12/04/2024 11:42 AM CDT) Anatomical Region Laterality Modality Lower Extremity Ultrasound Narrative 12/11/2024 6:14 AM CDT Table formatting from the original result was not included. Bilateral Venous Insufficiency Ultrasound (Date: 12/04/24) Bilateral Lower Extremity Examined by: Omari Avila [...] when greater than 0.5 sec flow reversal. A P Manager vein reflux reported as greater than 0.5 [...] Perforators: There is no evidence of incompetent industrial technologist veins at any level. Left Leg Deep [...] Perforators: There is no evidence of incompetent industrial technologist veins at any level. Impression: Right Deep [...] flow (milliseconds) Category Deep Veins Superficial Veins A P Manager veins Competent < 1.0 s < 0.5 s < 0.5 s Incompetent > 1.0 s > 0.5 s > 0.5 s us Rocky Henley MD IMG US ORDERABLES Fi nal Result * CTA Head Neck with Contrast (11/18/2024 9:24 PM CDT) Anatomical Region Laterality Modality Head, SUBRAD CT NEURO, SUBRA D CT NEURO, UMP CT NEURO, RAD CT Computed Tomography 11/18/2024 9:24 PM CDT Impressions 11/18/2024 9:42 PM CDT IMPRESSION: HEAD CTA: 1. Normal CTA [place]. NECK CTA: 1. Normal neck CTA. Narrative 11/18/2024 9:42 PM CDT EXAM: CTA HEAD NECK W CONTRAST LOCATION: [facility] DATE: 11/18/2024 INDICATION: headache, neck pain, paresthesias COMPARISON: None. CONTRAST: 67mL Isovue 370 TECHNIQUE: Head and neck CT angiogram with IV contrast. Axial helical CT images of the head and neck vessels obtained during the arterial phase of intravenous contrast administration. Axial 2D reconstructed images and multiplanar 3D MIP reconstructed images of the head and neck vessels were performed by the technologist. Dose reduction techniques were used. All stenosis measurements made according to NASCET criteria unless otherwise specified. FINDINGS: HEAD CTA: ANTERIOR CIRCULATION: No stenosis/occlusion, aneurysm, or high flow vascular malformation. origin left posterior cerebral artery. POSTERIOR CIRCULATION: No stenosis/occlusion, aneurysm, or high flow vascular malformation. Balanced vertebral arteries supply a normal basilar artery. DURAL VENOUS SINUSES: Expected enhancement of the major dural venous sinuses. NECK CTA: RIGHT CAROTID: No measurable stenosis or dissection. LEFT CAROTID: No measurable stenosis or dissection. VERTEBRAL ARTERIES: No focal stenosis or dissection. Balanced vertebral arteries. AORTIC ARCH: Classic aortic arch anatomy with no significant stenosis at the origin of the great vessels. NONVASCULAR STRUCTURES: Unremarkable. Procedure Note Kai Amor MD - 11/18/2024 EXAM: CTA HEAD NECK W CONTRAST LOCATION: [facility] DATE: 11/18/2024 INDICATION: headache, neck pain, paresthesias COMPARISON: None. CONTRAST: 67mL Isovue 370 TECHNIQUE: Head and neck CT angiogram with IV contrast. Axial helical CTimages of the head and neck vessels obtained during the arterial phase ofintravenous contrast administration. Axial 2D reconstructed images andmultiplanar 3D MIP reconstructed images of the head and neck vessels were performed by the technologist.Dose reduction techniques were used. All stenosis measurements madeaccording to NASCET criteria unless otherwise specified. FINDINGS: HEAD CTA: ANTERIOR CIRCULATION: No stenosis/occlusion, aneurysm, or high flowvascular malformation. origin left posterior cerebral artery. POSTERIOR CIRCULATION: No stenosis/occlusion, aneurysm, or high flowvascular malformation. Balanced vertebral arteries supply a normal basilarartery. DURAL VENOUS SINUSES: Expected enhancement of the major dural venoussinuses. NECK CTA: RIGHT CAROTID: No measurable stenosis or dissection. LEFT CAROTID: No measurable stenosis or dissection. VERTEBRAL ARTERIES: No focal stenosis or dissection. Balanced vertebralarteries. AORTIC ARCH: Classic aortic arch anatomy with no significant stenosis atthe origin of the great vessels. NONVASCULAR STRUCTURES: Unremarkable. IMPRESSION: HEAD CTA: 1. Normal CTA [place] NECK CTA: 1. Normal neck CTA. us Eron Sinha MD IMG CT ORDERABLES Final R esult * CT Head w/o Contrast (11/18/2024 9:23 PM CDT) Anatomical Region Laterality Modality Head, SUBRAD CT NEURO, SUBRA D CT NEURO, UMP CT NEURO, RAD CT Computed Tomography 11/18/2024 9:23 PM CDT Impressions 11/18/2024 9:38 PM CDT IMPRESSION: 1. Normal head CT. Narrative 11/18/2024 9:38 PM CDT EXAM: CT HEAD W/O CONTRAST LOCATION: [facility] DATE: 11/18/2024 INDICATION: headache COMPARISON: 05/27/2024 TECHNIQUE: Routine CT Head without IV contrast. Multiplanar reformats. Dose reduction techniques were used. FINDINGS: INTRACRANIAL CONTENTS: No intracranial hemorrhage, extraaxial collection, or mass effect. No CT evidence of acute infarct. Normal parenchymal attenuation. Normal ventricles and sulci. VISUALIZED ORBITS/SINUSES/MASTOIDS: No intraorbital abnormality. No paranasal sinus mucosal disease. No middle ear or mastoid effusion. BONES/SOFT TISSUES: No acute abnormality. Procedure Note Kai Amor MD - 11/18/2024 EXAM: CT HEAD W/O CONTRAST LOCATION: [facility] DATE: 11/18/2024 INDICATION: headache COMPARISON: 05/27/2024 TECHNIQUE: Routine CT Head without IV contrast. Multiplanar reformats.Dose reduction techniques were used. FINDINGS: INTRACRANIAL CONTENTS: No intracranial hemorrhage, extraaxial collection,or mass effect. No CT evidence of acute infarct. Normal parenchymalattenuation. Normal ventricles and sulci. VISUALIZED ORBITS/SINUSES/MASTOIDS: No intraorbital abnormality. Noparanasal sinus mucosal disease. No middle ear or mastoid effusion. BONES/SOFT TISSUES: No acute abnormality. IMPRESSION: 1. Normal head CT. Eron Sinha MD IMG CT ORDERABLES Final R esult * Extra Red Top Tube (11/18/2024 8:36 PM CDT) Hold Specimen [facility] 11/18/2024 9:47 PM CDT LABORATORY Blood BLOOD SPECIMEN / Unknown Venipuncture / Unknown 11/18/2024 8:36 PM CDT 11/18/2024 8:45 PM CDT Eron Sinha MD LAB - BLOOD ORDERABLES Fi nal Result [facility] Lab [address] [employer] Lab (1st floor, no room number) [address] * Extra Blue Top Tube (11/18/2024 8:36 PM CDT) Only the most recent of2 resultswithin the time period is included. Hold Specimen [facility] 11/18/2024 9:47 PM CDT LABORATORY Blood BLOOD SPECIMEN / Unknown Venipuncture / Unknown 11/18/2024 8:36 PM CDT 11/18/2024 8:45 PM CDT Eron Sinha MD LAB - BLOOD ORDERABLES Fi nal Result [facility] [address] [employer] Lab (1st floor, no room number) [place] [address] [place] [address] * (ABNORMAL) CBC with platelets and differential (11/18/2024 8:36 PM CDT) Only the most recent of2 resultswithin the time period is included. WBC Count 11.9(H) 4.0 - 11.0 10e3/uL 11/18/2024 8:49 PM CDT [facility] RBC Count 4.58 3.80 - 5.20 10e6/uL 11/18/2024 8:49 PM CDT [facility] Hemoglobin 14.2 11.7 - 15.7 g/dL 11/18/2024 8:49 PM CDT [facility] Hematocrit 41.8 35.0 - 47.0 % 11/18/2024 8:49 PM CDT [facility] MCV 91 78 - 100 fL 11/18/2024 8:49 PM CDT [facility] MCH 31.0 26.5 - 33.0 pg 11/18/2024 8:49 PM CDT [facility] MCHC 34.0 31.5 - 36.5 g/dL 11/18/2024 8:49 PM CDT [facility] RDW 12.5 10.0 - 15.0 % 11/18/2024 8:49 PM CDT [facility] Platelet Count 321 150 - 450 10e3/uL 11/18/2024 8:49 PM CDT [facility] % Neutrophils 56 % 11/18/2024 8:49 PM CDT [facility] % Lymphocytes 33 % 11/18/2024 8:49 PM CDT [facility] % Monocytes 6 % 11/18/2024 8:49 PM CDT [facility] % Eosinophils 4 % 11/18/2024 8:49 PM CDT [facility] % Basophils 1 % 11/18/2024 8:49 PM CDT [facility] % Immature Granulocytes 0 % 11/18/2024 8:49 PM CDT [facility] NRBCs per 100 WBC 0 <1 /100 025 8:49 PM CDT [facility] Absolute Neutrophils 6.7 1.6 - 8.3 10e3/uL 11/18/2024 8:49 PM CDT [facility] Absolute Lymphocytes 4.0 0.8 - 5.3 10e3/uL 11/18/2024 8:49 PM CDT [facility] Absolute Monocytes 0.7 0.0 - 1.3 10e3/uL 11/18/2024 8:49 PM CDT [facility] Absolute Eosinophils 0.5 0.0 - 0.7 10e3/uL 11/18/2024 8:49 PM CDT [facility] Absolute Basophils 0.1 0.0 - 0.2 10e3/uL 11/18/2024 8:49 PM CDT [facility] Absolute Immature Granulocytes 0.1 <=0.4 10e3/uL 11/18/2024 8:49 PM CDT [facility] Absolute NRBCs 0.0 10e3/uL 11/18/2024 8:49 PM CDT [facility] Blood BLOOD SPECIMEN / Unknown Venipuncture / Unknown 11/18/2024 8:36 PM CDT 11/18/2024 8:45 PM CDT Eron Sinha MD LAB - BLOOD ORDERABLES nal Result LABORATORY [facility] [address] [facility] Lab (1st floor, no room number) [place] [address] * Troponin T, High Sensitivity (11/18/2024 8:36 PM CDT) [facility] Troponin T, High Sensitivity 8 <=14 ng/L 11/18/2024 9:36 PM CDT [facility] Comment: Either a High Sensitivity Troponin T baseline (0 hours) value = 100 ng/L, or an increase in High Sensitivity Troponin T = 7 ng/L at 2 hours compared to 0 hours (2-0 hours), suggests myocardial injury, and urgent clinical attention is required. If the 2-0 hours increase is <7 [...] BLOOD SPECIMEN / Unknown Venipuncture / Unknown 11/18/2024 8:36 PM CDT 11/18/2024 8:45 PM CDT us Eron Sinha MD LAB - BLOOD ORDERABLES Fi nal Result LABORATORY [facility] [address] [employer] Lab (1st floor, no room number) [place] [address], [facility] [[email or web address] * Basic metabolic panel (BMP) (11/18/2024 8:36 PM CDT) Only the most recent of2 resultswithin the time period is included. [facility] Sodium 138 135 - 145 mmol/L 11/18/2024 9:05 PM CDT LABORATORY Potassium 3.8 3.4 - 5.3 mmol/L 11/18/2024 9:05 PM CDT LABORATORY Chloride 106 98 - 107 mmol/L 11/18/2024 9:05 PM CDT LABORATORY Carbon Dioxide (CO2) 23 22 - 29 mmol/L 11/18/2024 9:05 PM CDT LABORATORY Anion Gap 9 7 - 15 mmol/L 11/18/2024 9:05 PM CDT LABORATORY Urea Nitrogen 15.6 6.0 - 20.0 mg/dL 11/18/2024 9:05 PM CDT LABORATORY Creatinine 0.82 0.51 - 0.95 mg/dL 11/18/2024 9:05 PM CDT LABORATORY GFR Estimate >90 >60 mL/min/1.7 3m2 11/18/2024 9:05 PM CDT LABORATORY Comment:eGFR calculated us2020 CKD-EPI equation. Calcium 9.2 8.8 - 10.4 mg/dL 11/18/2024 9:05 PM CDT LABORATORY Glucose 88 70 - 99 mg/dL 11/18/2024 9:05 PM CDT LABORATORY Blood BLOOD SPECIMEN / Unknown Venipuncture / Unknown 11/18/2024 8:36 PM CDT 11/18/2024 8:45 PM CDT us Eron Sinha MD LAB - BLOOD ORDERABLES Fi nal Result LABORATORY [facility] [address] [employer] Lab (1st floor, no room number) [place] [address] * US Lower Extremity Venous Duplex Right (11/11/2024 7:55 PM CDT) Anatomical Region Laterality Modality Lower Extremity Ultrasound 11/11/2024 7:55 PM CDT Impressions 11/11/2024 7:58 PM CDT IMPRESSION: 1. No deep venous thrombosis in the right lower extremity. Narrative 11/11/2024 7:58 PM CDT EXAM: US LOWER EXTREMITY VENOUS DUPLEX RIGHT LOCATION: [facility] DATE: 11/11/2024 INDICATION: R leg pain, swelling COMPARISON: None. TECHNIQUE: Venous Duplex ultrasound of the right lower extremity with and without compression, augmentation and duplex. Color flow and spectral Doppler with waveform analysis performed. FINDINGS: Exam includes the common femoral, femoral, popliteal, and contralateral common femoral veins as well as segmentally visualized deep calf veins and greater saphenous vein. RIGHT: No deep vein thrombosis. No superficial thrombophlebitis. No popliteal cyst. Procedure Note Charlie Logan MD - 11/11/2024 EXAM: US LOWER EXTREMITY VENOUS DUPLEX RIGHT LOCATION: [facility] DATE: 11/11/2024 INDICATION: R leg pain, swelling COMPARISON: None. TECHNIQUE: Venous Duplex ultrasound of the right lower extremity with andwithout compression, augmentation and duplex. Color flow and spectralDoppler with waveform analysis performed. FINDINGS: Exam includes the common femoral, femoral, popliteal, andcontralateral common femoral veins as well as segmentally visualized deepcalf veins and greater saphenous vein. RIGHT: No deep vein thrombosis. No superficial thrombophlebitis. Nopopliteal cyst. IMPRESSION: 1. No deep venous thrombosis in the right lower extremity. us Obinna Clifford MD IMG US ORDERABLES Final Re sult * BNP (11/11/2024 7:24 PM CDT) N terminal Pro BNP Inpatient 83 0 - 450 pg/mL 11/11/2024 8:06 PM CDT [facility] Comment: Reference range shown and results flagged as abnormal are suggested inpatient cut points for confirming diagnosis if CHF in an acute setting. Establishing a baseline value for each individual patient is useful for follow-up. An inpatient or emergency department NT-proPBNP <300 pg/mL effectively rules out acute CHF, with 99% negative predictive value. The outpatient non-acute reference range for ruling out CHF is: 0-125 pg/mL (age 18 to less than 75) 0-450 pg/mL (age 75 yrs and older) Blood BLOOD SPECIMEN / Unknown Venipuncture / Unknown 11/11/2024 7:24 PM CDT 11/11/2024 7:30 PM CDT Obinna Clifford MD LAB - BLOOD ORDERABLES Fin al Result [facility] [address] [facility] (1st floor, no room number) [place] [address] [place] [address] * Magnesium (11/11/2024 7:24 PM CDT) Magnesium 2.0 1.7 - 2.3 mg/dL 11/11/2024 8:00 PM CDT LABORATORY Blood BLOOD SPECIMEN / Unknown Venipuncture / Unknown 11/11/2024 7:24 PM CDT 11/11/2024 7:30 PM CDT Obinna Clifford MD LAB - BLOOD ORDERABLES Fin al Result [facility] Lab [address] Lab (1st floor, no room number) [place] [id number] * [place] level (11/11/2024 7:24 PM CDT) [place] 0.72 0.60 - 1.20 mmol/L 11/11/2024 8:55 PM CDT LABORATORY Comment: Therapeutic: 0.60 - 1.20 mmol/L; Toxic: >2.00 mmol/L Blood BLOOD SPECIMEN / Unknown Venipuncture / Unknown 11/11/2024 7:24 PM CDT 11/11/2024 7:30 PM CDT Obinna Clifford MD LAB - BLOOD ORDERABLES Fin al Result LABORATORY [facility] [address] Lab (1st floor, no room number) [place] [address] * Hepatic function panel (11/11/2024 7:24 PM CDT) Protein Total 7.1 6.4 - 8.3 g/dL 11/11/2024 8:00 PM CDT [facility] Albumin 4.2 3.5 - 5.2 g/dL 11/11/2024 8:00 PM CDT [facility] Bilirubin Total 0.4 <=1.2 mg/dL 11/11/2024 8:00 PM CDT [facility] Alkaline Phosphatase 43 40 - 150 U/L 11/11/2024 8:00 PM CDT [facility] AST 22 0 - 45 U/L 11/11/2024 8:00 PM CDT [facility] ALT 14 0 - 50 U/L 11/11/2024 8:00 PM CDT [facility] Bilirubin Direct 0.13 0.00 - 0.30 mg/dL 11/11/2024 8:00 PM CDT [facility] Blood BLOOD SPECIMEN / Unknown Venipuncture / Unknown 11/11/2024 7:24 PM CDT 11/11/2024 7:30 PM CDT Obinna Clifford MD LAB - BLOOD ORDERABLES Fin al Result LABORATORY [facility] [address] Lab (1st floor, no room number) [place] [address], [facility] [[email or web address] * HCG qualitative Blood (11/11/2024 7:24 PM CDT) Pathologist [facility] hCG Serum Qualitative Negative Negative DEEPIKA 11/11/2024 8:03 PM CDT [facility] Comment:This test is for scr eening purposes. Results should be interpreted along with the clinical picture. Confirmation testing is available if warranted by ordering [id number], HCG Quantitative . Blood BLOOD SPECIMEN / Unknown Venipuncture / Unknown 11/11/2024 7:24 PM CDT 11/11/2024 7:30 PM CDT Obinna Clifford MD LAB - BLOOD ORDERABLES Fin al Result [facility] Care Lab [address] [employer] [facility] (1st floor, no room number) [place] [address] * (ABNORMAL) CK total (11/11/2024 7:24 PM CDT) Pathologist [facility] CK 236(H) 26 - 192 U/L 11/11/2024 8:00 PM CDT LABORATORY Blood BLOOD SPECIMEN / Unknown Venipuncture / Unknown 11/11/2024 7:24 PM CDT 11/11/2024 7:30 PM CDT Obinna Clifford MD LAB - BLOOD ORDERABLES Fin al Result Performing Organization Address City/[facility]/ZIP Co de Phone Number [facility] Lab [address] [facility] (1st floor, no room number) [place] [address] * TSH (02/13/2020 5:40 PM CDT) Pathologist [facility] TSH 1.53 0.40 - 4.00 mU/L 02/16/2020 8:14 AM CDT [facility] Blood specimen (specimen) 02/13/2020 5:40 PM CDT 02/15/2020 2:00 PM CDT Lab Non-Fv Credentialed Provider LAB - BLOOD ORD ERABLES Final Result Performing Organization Address City/[facility]/ZIP Co de Phone Number [facility] [address] [place] [address] * CHLAMYDIA TRACHOMATIS PCR (01/08/2020 4:10 PM CDT) Pathologist [facility] Specimen Description Vagina 01/08/2020 4:12 PM CDT [facility] Chlamydia Trachomatis PCR Negative NEG^Negat gab 01/09/2020 1:59 PM CDT [facility] Comment: Negative for C. trachomatis rRNA by tread cutter mediated amplification. A negative result by tread cutter mediated amplification does not preclude the presence of C. trachomatis infection because results are dependent on proper and adequate collection, absence of inhibitors, and sufficient rRNA to be detected. Specimen from vagina (specimen) 01/08/2020 4:10 PM CDT 01/08/2020 4:11 PM CDT us Keyana Ortiz PA-C LAB - MICRO GENERAL ORDER JOSE Final Result [facility] [address] [place] [address], [facility] [address] [place] [address] from Last 3 Months or Most Recently Relevant to Health Maintenance Insurance [facility] [employer] Advance Directives For more information, please contact: [phone] * Full Code (Latest Code Status on File) Date Activated Date Inactivated Comments 07/23/2017 10:23 PM 07/26/2017 5:52 PM * Full Code Date Activated Date Inactivated Comments 04/29/2017 10:56 PM 05/06/2017 4:51 PM Care Teams Baller Tender Relationship Specialty Start Date End Date Vane Black PA [address] [place] [address] PCP - General Family Practice 05/12/23 Sukhwinder Gerard MD [address] [facility] [address] [place], [place] [id number] Gastroenterology 03/08/20 Jese Simmons DO [address] [employer], [place] [id number] Resident Neurology 05/29/24 Vasquez Abdullahi MD [facility] [address] [place] [address] Emergency Medicine 05/29/24 Rocky Henley MD [address] [place] [id number] Assigned Heart and Vascular Provider 12/06/24
--- OUTSIDE RECORDS SUMMARY | 2024-12-17 15:38 | XMS_ITS | Encounter Summary ---
Author Organization Honor Address [facility]0 [facility] [place] [address] Care Team Providers Care Sewing Line Baler Name Role Phone Sukhwinder Gerard MD Unavailable [phone] Vane Black Primary Care Provider [phone] Jese Simmons DO Unavailable [phone] Vasquez Abdullahi MD Unavailable [phone] Reason for Visit * Reason Onset Date Comments Referral 11/09/2024 Encounter Details Date Type Department Care Team (Late st Contact Info) Description 11/09/2024 Telephone [facility] [place] [address] [place] [address] [place] [phone] Nurse, [facility] Referral Social History Tobacco Use Types Packs/Day Years [...] on file 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 Gertrude Tavarez MA * Telephone Encounter - Magaly Smallwood - 11/10/2024 9:19 AM CDT Left voicemail for patient to call back to schedule appointment(s), provided telephone number for patient to call back to schedule. * Telephone Encounter - Liv Keller RN - 11/09/2024 1:24 PM CDT Referral received via Workqueue on 11/09/24. Referred by Mimi Keita PA-C for Thoracic outlet syndrome of right thoracic outlet. Previous imaging completed (pertinent to referral): Imaging done at [facility], reports viewable in Care Everywhere 11/07/24 chest xray 10/31/24 right upper extremity arterial US 10/31/24 right upper extremity venous US Routing to scheduling to coordinate the following: NEW VASCULAR PATIENT consult with Dr. Henley Please schedule this at next available Appt note: Ref by Mimi Keita PA-C ([facility]) for thoracic outlet syndrome of right thoracic outlet; chest xray and TOS US done at [facility]; notes in Care Everywhere (updated). SINDHU Andersen, RN, CV-BC, CNOR [facility] [place] documented in this encounter Plan of Treatment Upcoming Encounters Date Type Department Care Team (Late st Contact Info) Description 01/17/2025 1:45 PM CDT Office Visit [address] [place] [address] Rocky Henley MD [address] [place] [address] Ke Contreras MD [address] [place] [address] 01/25/2025 2:10 PM CDT Office Visit [facility] [place] [address] [place] [phone] Rocky Henley MD [address] [place] [id number] documented as of this encounter Visit Diagnoses Not on filedocumented in this encounter Additional Health Concerns Assessment Noted Time PHQ-9 Depression Total Score: 26 020 3:00 PM CDT documented as of this encounter Care Teams Sewing Line Baler Relationship Specialty Start Date End Date Vane Black PA [address] [place] [address] PCP - General Family Practice 05/12/23 Sukhwinder Gerard MD [address] [place] [id number] Gastroenterology 03/08/20 Jese Simmons DO [address] [place] [id number] Resident Neurology 05/29/24 Vasquez Abdullahi MD [facility] [place] [address] [place] [address] Emergency Medicine 05/29/24 documented as of this encounter
--- OUTSIDE RECORDS SUMMARY | 2024-12-17 15:38 | XMS_ITS | Encounter Summary ---
Author Organization [facility] Address [address] [place] [address] Care Team Providers Care Tenant Selector Name Role Phone Sukhwinder Gerard MD Unavailable [phone] Vane Black Primary Care Provider [phone] Jese Simmons DO Unavailable [phone] Vasquez Abdullahi MD Unavailable [phone] Reason for Referral * Diagnostic Imaging Ultrasound (Routine) - Pending Review Specialty Diagnoses / Procedures Referred By Heide armando Referred To Contact Radiology. Diagnoses Pain of left lower extremity Procedures US Venous Competency Bilateral Rocky Henley MD [address] [place] [address] Phone: tel: fax: Referral ID Status Reason Start Date Expiration Date V isits Requested Visits Authorized [id number] Pending Review 11/23/2024 11/23/2025 1 1 * Consultation (Routine: Next available opening) - Pending Review Specialty Diagnoses / Procedures Referred By Heide armando Referred To Contact Pain Medicine Diagnoses Thoracic outlet syndrome of right thoracic outlet Rocky Henley MD [address] [place] [address] Phone: tel: fax: Daryn Fish Ref'l [address] [address] Phone: tel: Referral ID Status Reason Start Date Expiration Date V isits Requested Visits Authorized [id number] Pending Review 11/23/2024 11/23/2025 1 1 Question Answer Reason for Referral: Procedure Order Procedure: Other My Clinical Question Is: Please perform Rt scalene block to predict lieklihood of response to first rib resection a patietn with neurogenic TOS Patient Scheduling Instructions: [employer] will call you to coordinate care as prescribed your provider. If you don t hear from a special service representative within 2 business days, please call . Comments Please be aware that coverage of these services is subject to the terms and limitations of your health insurance plan. Call member services at your health plan with any benefit or coverage questions. [employer] will call you to coordinate care as prescribed your provider. If you don t hear from a special service representative within 2 business days, please call . * (Routine) - Pending Review Specialty Diagnoses / Procedures Referred By Heide t Referred To Contact Diagnoses Thoracic outlet syndrome of right thoracic outlet Procedures EMG Rocky Henley MD [address] [place] [address] Phone: tel: fax: [facility] [address] [address] Phone: tel: fax: Referral ID Status Reason Start Date Expiration Date V isits Requested Visits Authorized [id number] Pending Review 11/23/2024 11/23/2025 1 1 Reason for Visit * Reason Comments Consult Ref by Mimi Keita PA-C ([facility]) for thoracic outlet syndrome of right thoracic outlet; chest xray and TOS US done at [facility]; notes in Care Everywhere (updated). * Consultation (Routine: Next available opening) - Pending Review Specialty Diagnoses / Procedures Referred By Heide t Referred To Contact Cardiovascular Disease Diagnoses Thoracic outlet syndrome of right thoracic outlet [facility] [address] [address] Phone: tel: fax: Referral ID Status Reason Start Date Expiration Date V isits Requested Visits Authorized [id number] Pending Review 11/09/2024 11/09/2025 1 1 Encounter Details Date Type Department Care Team (Late st Contact Info) Description 11/23/2024 2:10 PM CDT Office Visit [facility] [place] 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 Gender Identity Not on file Sexual Orientation Not on file documented as of this encounter Last Filed Vital Signs Vital Sign Reading Time Taken Comments Blood Pressure 108/72 11/23/2024 2:15 PM CDT Pulse 78 11/23/2024 2:14 PM CDT Temperature - - Respiratory Rate - - Oxygen Saturation 98% 11/23/2024 2:14 PM CDT Inhaled Oxygen Concentration - - Weight - - Height - - Body Mass Index - - documented in this encounter Progress Notes * Rocky Henley MD - 11/23/2024 2:10 PM CDT INITIAL VASCULAR MEDICAL ASSESSMENT REFERRAL SOURCE: Mimi Keita PA-C REASON FOR CONSULT: for Thoracic outlet syndrome of right thoracic outlet. A/P: (G54.0) Thoracic outlet syndrome of right thoracic outlet Comment: It is highly likely based upon vocational history, clinical exam findings and imaging to date that she has nTOS. Check below studies including a scalene block. RTC after the below have been obtained. See work restriction letter for the time being. When seen at next visit, will likely send for TO specific PT. If fails to respond to TO specific PT but does respond to scalene block, will refer to vascular surgery to address first rib resection Plan: EMG, Pain Management Broadband Installer Referral (M79.395) Pain of left lower extremity Comment: I suspect she has janell insufficiency. Check the below. Plan: US Venous Competency Bilateral, rtc one month; wear compression hosiery in the interim. 100 minutes total medical care on today's date.Extended time secondary to need to review outside records, explain ds state and plan to pt, write letters, and provide information to her [facility]. The longitudinal care of plan for Lary was addressed during this visit. Due to added complexityof care, we will continue to support Lary Angulo and the subsequent management of these conditions and with ongoing continuity of care for these conditions. HPI: Lary Angulo is a 24 y.o. right hand dominant female presenting today for initial evaluation with regards to her right and left shoulders. She undergone bilateral upper extremity arterial and venous ultrasound with TOS maneuvers to determine if her shoulder pain is associated with neurovascular bundle compression at the thoracic outlet possibly causing thoracic outlet syndrome. The pain is achy, dull, sharp, and constant and is located on the anterior, posterior, and superioraspects of the shoulder. It is worse with reaching up, reaching out, lifting, and at night it is better with rest and stretching. In addition to pain, the patient reports instability, numbness, and tingling. The patient reports her right shoulder has been about the same and has plateaued with previous treatment and diagnostic imaging. The patient does take Tramadol as needed and Tylenol for herdaily pain. The patient is not currently working as the employer cannot accommodate the restrictions .She has not had an EMG of the BUE's, and has not undergone a scalene block or TO specific PT. 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 It caused significant pain. She went to the ED. D dimer was trivially elevated. BLE venous duplex and PE protocol CT revealed no thromboem boli. Review Of Systems Skin: negative Eyes: negative Ears/Nose/Throat: negative Respiratory: No shortness of breath, dyspnea on exertion, cough, or hemoptysis Cardiovascular: negative Gastrointestinal: negative Genitourinary: negative Musculoskeletal: as above Neurologic: as above Psychiatric: negative Hematologic/Lymphatic/Immunologic: negative Endocrine: negative PAST MEDICAL HISTORY: Past Medical History: Diagnosis Date Anxiety Depressive disorder Personal history of diseases of respiratory system Streptococcal sore throat Unspecified constipation Vertigo PAST SURGICAL HISTORY: Past Surgical History: Procedure Laterality Date RAD RESEC TONSIL/PILLARS SPINE SURGERY 2011 [facility] and fusion for scoliosis CURRENT MEDICATIONS: Current Outpatient Medications Medication Sig Dispense Refill adalimumab (HUMIRA *CF* PEN) 40 MG/0.4ML pen kit Inject 40 mg subcutaneously. adalimumab (HUMIRA) 40 MG/0.8ML prefilled syringe kit Inject 40 mg subcutaneously every 14 days. albuterol (PROAIR HFA/PROVENTIL HFA/VENTOLIN HFA) 108 (90 Base) MCG/ACT inhaler Inhale 2 puffs intothe lungs. albuterol (PROAIR HFA/PROVENTIL HFA/VENTOLIN HFA) 108 (90 Base) MCG/ACT inhaler Inhale 1-2 puffs into the lungs every 6 hours as needed for shortness of breath, wheezing or cough. cetirizine (ZYRTEC) 10 MG tablet Take 10 mg by mouth. clonazePAM (KLONOPIN) 0.5 MG tablet Take 0.5 mg by mouth. clonazePAM (KLONOPIN) 0.5 MG tablet Take 0.5 mg by mouth 2 times daily as needed for anxiety. clonazePAM (KLONOPIN) 1 MG tablet diclofenac (VOLTAREN) 1 % topical gel APPLY 2 GRAMS TOPICALLY TO THE AFFECTED AREA FOUR TIMES DAILY diphenhydrAMINE (BENADRYL) 25 MG capsule Take 1 capsule (25 mg) by mouth 3 times daily as needed for other (to take with reglan for headache). 15 capsule 0 drospirenone-ethinyl estradiol (KALEIGH) 3-0.03 MG tablet Take 1 pill daily of active pills for 4 packs (12 weeks) Prior to taking 1 week of inactive pills. 112 tablet 1 EPINEPHrine (ANY BX GENERIC EQUIV) 0.3 MG/0.3ML injection 2-pack Inject 0.3 mLs (0.3 mg) into the muscle once as needed for anaphylaxis. May repeat one time in 5-15 minutes if response to initial dose is inadequate. 2 each 0 fexofenadine (NAEEM) 180 MG tablet Take 10 mg by mouth daily. fluticasone (FLONASE) 50 MCG/ACT nasal spray [place] 1 spray into both nostrils daily. 16 g 0 galcanezumab-gnlm (EMGALITY) 120 MG/ML injection Inject 1 mL (120 mg) subcutaneously every 28 days.1 mL 11 hydrOXYzine (ATARAX) 25 MG tablet ibuprofen (ADVIL/MOTRIN) 600 MG tablet Take 1 tablet (600 mg) by mouth every 6 hours as needed for moderate pain 20 tablet 0 lithium (ESKALITH CR/LITHOBID) 450 MG CR tablet Take 1 tablet by mouth 2 times daily. lithium (ESKALITH) 600 MG capsule Take 1 capsule by mouth at bedtime. lithium (ESKALITH) 600 MG capsule Take 900 mg by mouth at bedtime. lithium 300 MG capsule 300 mg. metFORMIN (GLUCOPHAGE-XR) 750 MG 24 hr tablet Take 750 mg by mouth. metFORMIN (GLUCOPHAGE-XR) 750 MG 24 hr tablet Take 750 mg by mouth daily (with dinner). metoclopramide (REGLAN) 10 MG tablet Take 1 tablet (10 mg) by mouth 3 times daily as needed (to take with benadryl for headache). 15 tablet 0 norethindrone-ethinyl estradiol (MICROGESTIN /20) 1-20 MG-MCG tablet Take 1 tablet by mouth daily. ondansetron (ZOFRAN-ODT) 4 MG ODT tab Take 1 tablet (4 mg) by mouth every 8 hours as needed for nausea 10 tablet 0 predniSONE (DELTASONE) 20 MG tablet Take two tablets (= 40mg) each day for 5 (five) days 10 tablet 0 pregabalin (LYRICA) 100 MG capsule TAKE 1 CAPSULE BY MOUTH TWICE DAILY FOR 15 DAYS pregabalin (LYRICA) 75 MG capsule Take 75 mg by mouth. pregabalin (LYRICA) 75 MG capsule Take 150 mg by mouth 2 times daily. rizatriptan (MAXALT) 10 MG tablet Take 1 tablet (10 mg) by mouth at onset of headache for migraine May repeat in 2 hours. Max 3 tablets/24 hours. rizatriptan (MAXALT-AEROSPACE STRESS ENGINEER) 5 MG ODT DISSOLVE 1 TABLET ON THE TONGUE TWICE DAILY NEEDED FOR MIGRAINE. GIVE AT MINIMUM TWO HOURS APART. MAXIMUM DOSE 30 MG PER 24 HOURS Suvorexant (BELSOMRA) 10 MG tablet Take 10 mg by mouth at bedtime. suvorexant (BELSOMRA) 5 MG tablet Take 10 mg by mouth nightly as needed for sleep. 5-10mg tiZANidine (ZANAFLEX) 2 MG tablet Take 2 mg by mouth 2 times daily as needed for muscle spasms tiZANidine (ZANAFLEX) 4 MG tablet TAKE 1 TABLET BY MOUTH EVERY BEDTIME FOR MUSCLE TIGHTNESS ubrogepant (UBRELVY) 100 MG tablet Take 1 tablet (100 mg) by mouth at onset of headache (Migraine. Max dose = 2 pills in a 24 hour.). 10 tablet 11 ALLERGIES: Allergies Allergen Reactions Golimumab Anaphylaxis Hot, flushed, nauseated, disoriented, tingling in mouth and throat, slurred speech Passion Fruit Flavoring Agent (Non-Screening) Anaphylaxis [place] Oil Other reaction(s): GI Upset [place] Oil Other reaction(s): GI Upset Crab Extract Other reaction(s): GI Upset Fish Oil Other (See Comments) Trazodone Other (See Comments) and Unknown Pt reports suicidal thoughts Suicidal thoughts Suicidal thoughts Pt reports suicidal thoughts SOCIAL HISTORY: Social History Socioeconomic History Marital status: Single Spouse name: Not on file Number of children: Not on file Years of education: Not on file Highest education level: Not on file Occupational History Not on file Tobacco Use Smoking status: Never Smokeless tobacco: Never Substance and Sexual Activity Alcohol use: Yes Comment: socially Drug use: No Sexual activity: Yes Partners: Male control/protection: Condom, Pill Other Topics Concern Not on file Social History Narrative Not on file Social Drivers of Health Financial Resource Strain: Low Risk (06/18/2024) Received from [facility] Financial Resource Strain Difficulty of Paying Living Expenses: 3 Difficulty of Paying Living Expenses: Not on file Food Insecurity: No Food Insecurity (06/18/2024) Received from [facility] Food Insecurity Do you worry your food will run out before you are able to buy more?: 1 Transportation Needs: No Transportation Needs (06/18/2024) Received from [facility] Transportation Needs Does lack of transportation keep you from medical appointments?: 1 Does lack of transportation keep you from work, meetings or getting things that you need?: 1 Physical Activity: Not on file Stress: Not on file Social Connections: Socially Isolated (06/18/2024) Received from [facility] Social Connections Do you often feel lonely or isolated from those around you?: 4 Interpersonal Safety: Not on file Housing Stability: Medium Risk (06/18/2024) Received from [facility] Housing Stability What is your housing situation today?: 2 FAMILY HISTORY: Family History Problem Relation Age of Onset Thyroid Disease Mother Asthma Father Nasal Polyps Father Autism Spectrum Disorder Sister Raynaud syndrome Sister Asthma Sister Colon Cancer No family hx of Breast Cancer No family hx of Diabetes No family hx of Coronary Artery Disease No family hx of Physical exam Reveals: O/P: WNL HEENT: WNL NECK: No JVD, thyromegaly, or lymphadenopathy HEART: RRR, no murmurs, gallops, or rubs LUNGS: CTA bilaterally without rales, wheezes, or rhonchi GI: NABS, nondistended, nontender, soft EXT:without cyanosis, clubbing, or edema NEURO: nonfocal : no flank tenderness Three plus BUE brachial , radial, ulnar pulses. Ben filling time < 5 seconds BUEs in the radial and ulnar positions. Kiran test positive on RUE All relevant labs and imaging reviewed by myself on today's date. * Gertrude Tavarez MA - 11/23/2024 2:10 PM CDT [facility] Patient is here for a consult to discuss TOS Pt is currently taking no meds that would impact our treatment plan. BP 108/72 (BP Location: Left arm, Patient Position: Sitting, Cuff Size: Adult Regular) Pulse 78 SpO2 98% The provider has been notified that the patient has no concerns. Questions patient would like addressed today are: N/A. Refills are needed: N/A Has homecare services and agency name: Francoise Tavarez MA documented in this encounter Plan of Treatment Upcoming Encounters Date Type Department Care Team (Late st Contact Info) Description 01/17/2025 1:45 PM CDT Office Visit [facility] [address] [place] [phone] Rocky Henley MD [address] [place] [phone] Ke Contreras MD [address] [place] [id number] 01/25/2025 2:10 PM CDT Office Visit [facility] [place] [address] [place] [phone] Rocky Henley MD [address] [place] [address] Scheduled Orders Name Type Priority Associated Diagnoses Orde r Schedule EMG Neurology Routine Thoracic outlet syndrome of right thoracic outlet Expected: 11/23/2024 (Approximate), Expires: 11/23/2025 Scheduled Referrals Name Type Priority Associated Diagnoses Orde r Schedule Pain Management Broadband Installer Referral Referral Routine: Next available opening Thoracic outlet syndrome of right thoracic outlet Expected: 11/30/2024 (Approximate), Expires: 11/23/2025 documented as of this encounter Results * US Venous Competency [...] when greater than 0.5 sec flow reversal. Quarryman vein reflux reported as greater than 0.5 [...] Perforators: There is no evidence of incompetent chisel worker veins at any level. Left Leg Deep [...] Perforators: There is no evidence of incompetent chisel worker veins at any level. Impression: Right Deep [...] flow (milliseconds) Category Deep Veins Superficial Veins Quarryman veins Competent < 1.0 s < 0.5 s < 0.5 s Incompetent > 1.0 s > 0.5 s > 0.5 s us Rocky Henley MD IMG US ORDERABLES Fi nal Result documented in this encounter Visit Diagnoses Diagnosis Pain of left lower extremity- Primary Thoracic outlet syndrome of right thoracic outlet Pain of left lower extremity documented in this encounter Additional Health Concerns Assessment Noted Time PHQ-9 Depression Total Score: 26 02/19/ 020 3:00 PM CDT documented as of this encounter Care Teams Tenant Selector Relationship Specialty Start Date End Date Vane Black PA [address] [place] [address] PCP - General Family Practice 05/12/23 Sukhwinder Gerard MD [address] [place] [id number] Gastroenterology 03/08/20 Jese Simmons DO [address] [place] [address] Resident Neurology 05/29/24 Vasquez Abdullahi MD [facility] [address] [facility] [address] [place] [address] Emergency Medicine 05/29/24 documented as of this encounter
--- OUTSIDE RECORDS SUMMARY | 2024-12-17 15:38 | XMS_ITS | Encounter Summary ---
Author Organization [facility] Address [address] [place] [address]. 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 [place] [address] [place] [phone] Rocky Henley MD [address] [place] [address] documented as of this encounter Visit Diagnoses Not on filedocumented in this encounter Additional Health Concerns Assessment Noted Time PHQ-9 Depression Total Score: 26 020 3:00 PM CDT documented as of this encounter Care Teams Flat Finisher Relationship Specialty Start Date End Date Vane Black PA [address] [place] [address] PCP - General Family Practice 05/12/23 Sukhwinder Gerard MD [address] [place] [address]875 Gastroenterology 03/08/20 Jese Simmons DO [address] [place] [address] [id number] Resident Neurology 05/29/24 Vasquez Abdullahi MD [facility] [address] [place] [address] Emergency Medicine 05/29/24 documented as of this encounter
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
--- OUTSIDE RECORDS SUMMARY | 2024-12-17 15:38 | XMS_ITS | Encounter Summary ---
Author Organization [place] Address [facility] 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 [place] [phone] Rocky Henley MD [address] [place] [id number] documented as of this encounter Visit Diagnoses Not on filedocumented in this encounter Additional Health Concerns Assessment Noted Time PHQ-9 Depression Total Score: 26 020 3:00 PM CDT documented as of this encounter Care Teams Heel Caser Relationship Specialty Start Date End Date Vane Black PA [address] [place] [address] PCP - General Family Practice 05/12/23 Sukhwinder Gerard MD [address] [place] [address] [id number] Gastroenterology 03/08/20 Jese Simmons DO [address] [place] [address] Resident Neurology 05/29/24 Vasquez Abdullahi MD [facility] [address] [place] [address] Emergency Medicine 05/29/24 documented as of this encounter
--- OUTSIDE RECORDS SUMMARY | 2024-12-17 15:38 | XMS_ITS | Encounter Summary ---
Author Organization [place] Address [facility] 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 [place] [phone] Rocky Henley MD [address] [place] [id number] documented as of this encounter Visit Diagnoses Not on filedocumented in this encounter Additional Health Concerns Assessment Noted Time PHQ-9 Depression Total Score: 26 020 3:00 PM CDT documented as of this encounter Care Teams Wireless Sales Expert Relationship Specialty Start Date End Date Vane Black PA [address] [place] [address] PCP - General Family Practice 05/12/23 Sukhwinder Gerard MD [address] [place] [address] [id number] Gastroenterology 03/08/20 Jese Simmons DO [address] [place] [address] Resident Neurology 05/29/24 Vasquez Abdullahi MD [facility] [address] [place] [address] Emergency Medicine 05/29/24 documented as of this encounter
--- OUTSIDE RECORDS SUMMARY | 2024-12-17 15:38 | XMS_ITS | Encounter Summary ---
Author Organization [place] Address [address] [place] [address]. [place] [address] Care Team Providers Care Deputy Sheriff/Investigator Name Role Phone Sukhwinder Gerard MD Unavailable [phone] Vane Black Primary Care Provider [phone] Jese Simmons DO Unavailable [phone] Vasquez Abdullahi MD Unavailable [phone] Reason for Referral * Consultation (Routine: Next available opening) - Pending Review Specialty Diagnoses / Procedures Referred By Heide armando Referred To Contact Cardiovascular Disease Diagnoses Thoracic outlet syndrome of right thoracic outlet [facility] [address] [address] Phone: tel: fax: Referral ID Status Reason Start Date Expiration Date V isits Requested Visits Authorized [id number] Pending Review 11/09/2024 11/09/2025 1 1 Scheduling Instructions Referred to : Dr Eulalio Pascal at [facility] Question Answer Preferred Location: Other (external) - use comments Non-internal location selection reason: Patient Preference/Choice Scheduling Instructions: Please call to schedule your appointment Class External referral [5] Reason for Referral: Thoracic outlet syndrome of right thoracic outlet, of the right shoulder Comments Referred by : Mimi Keita PA-C [facility] Please call to schedule your appointment Encounter Details Date Type Department Care Team (Latest Contact Info) Description 11/09/2024 Transcribe Orders [facility] [address] [phone] Mimi Keita PA [facility] [place] [address] Thoracic outlet syndrome of right thoracic outlet (Primary Dx) Social History Tobacco Use Types Packs/Day Years [...] on file 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 [place] [phone] Rocky Henley MD [address] [place] [id number] Scheduled Referrals Name Type Priority Associated Diagnoses Orde r Schedule Vascular Medicine Referral Referral Routine: Next available opening Thoracic outlet syndrome of right thoracic outlet Expected: 11/09/2024 (Approximate), Expires: 11/09/2025 documented as of this encounter Visit Diagnoses Diagnosis Thoracic outlet syndrome of right thoracic outlet- Primary documented in this encounter Additional Health Concerns Assessment Noted Time PHQ-9 Depression Total Score: 26 020 3:00 PM CDT documented as of this encounter Care Teams Deputy Sheriff/Investigator Relationship Specialty Start Date End Date Vane Black PA [address] [place] [address] PCP - General Family Practice 05/12/23 Sukhwinder Gerard MD [address] [place] [address] [id number] Gastroenterology 03/08/20 Jese Simmosn DO [address] [place] [address] [id number] Resident Neurology 05/29/24 Vasquez Abdullahi MD [facility] [address] [place] [address] Emergency Medicine 05/29/24 documented as of this encounter
--- OUTSIDE RECORDS SUMMARY | 2024-12-17 15:38 | XMS_ITS | Encounter Summary ---
Author Organization [facility] Address [address] [place] [address] Care Team Providers Care Cost Engineer Name Role Phone Sukhwinder Gerard MD Unavailable [phone] Vane Black Primary Care Provider + [phone] Jese Simmons DO Unavailable [phone] Vasquez Abdullahi MD Unavailable [phone] Reason for Visit * Reason Comments Headache Arm Pain Numbness Encounter Details Date Type Department Care Team (Late st Contact Info) Description 11/18/2024 8:08 PM CDT - 11/18/2024 10:51 PM CDT Emergency [facility] Emergency Dept [address] [place] [id number] [phone] Eron Sinha MD [facility] [address] [place], [place] [id number] Nonintractable headache, unspecified chronicity pattern, unspecified headache [...] on file Legal Sex Female 4:47 AM [employer] Gender Identity Not on file Sexual Orientation Not on file documented as of this encounter Last Filed Vital Signs Vital Sign Reading Time Taken Comments Blood Pressure 117/83 11/18/2024 8:06 PM CDT Pulse 64 11/18/2024 8:06 PM CDT Temperature 36.8 C (98.2 F) 11/18/2024 8:06 PM CDT Respiratory Rate 18 11/18/2024 8:06 PM CDT Oxygen Saturation 98% 11/18/2024 8:06 PM CDT Inhaled Oxygen Concentration - - Weight 91.9 kg (202 lb 9.6 oz) 11/18/2024 7:59 P M CDT Height 170.2 cm (5' 7) 11/18/2024 7:59 PM CDT Body Mass Index 31.73 11/18/2024 7:59 PM CDT documented in this encounter Discharge Instructions * Discharge Instructions* Eron Sinha MD - 11/18/2024 10:42 PM CDT It was a pleasure taking care of you today. I hope you feel much better soon. Your evaluation was reassuring. Please follow-up with your primary care doctor in 3-5 days. Return immediately for worse pain, weakness, stroke symptoms, or any other concerns. * Attachments The following attachments cannot be sent through Care Everywhere. * Headache (Nauruan) documented in this encounter Medications at Time of Discharge clonazePAM (KLONOPIN) 1 MG tablet 11/18/2024 lithium (ESKALITH CR/LITHOBID) 450 MG CR tablet Take 1 tablet by mouth 2 times daily. 10/24/2024 pregabalin (LYRICA) 100 MG capsule TAKE 1 CAPSULE BY MOUTH TWICE DAILY FOR 15 DAYS 09/22/2024 tiZANidine (ZANAFLEX) 4 MG tablet TAKE 1 TABLET BY MOUTH EVERY BEDTIME FOR MUSCLE TIGHTNESS 10/09/2024 adalimumab (HUMIRA *CF* PEN) 40 MG/0.4ML pen kit Inject 40 mg subcutaneously. 05/10/2024 adalimumab (HUMIRA) 40 MG/0.8ML prefilled syringe kit Inject 40 mg subcutaneously every 14 days. albuterol (PROAIR HFA/PROVENTIL HFA/VENTOLIN HFA) 108 (90 Base) MCG/ACT inhaler Inhale 2 puffs into the lungs. 02/23/2023 albuterol (PROAIR HFA/PROVENTIL HFA/VENTOLIN HFA) 108 (90 Base) MCG/ACT inhaler Inhale 1-2 puffs into the lungs every 6 hours as needed for shortness of breath, wheezing or cough. cetirizine (ZYRTEC) 10 MG tablet Take 10 mg by mouth. 04/26/2024 clonazePAM (KLONOPIN) 0.5 MG tablet Take 0.5 mg by mouth. 03/01/2024 clonazePAM (KLONOPIN) 0.5 MG tablet Take 0.5 mg by mouth 2 times daily as needed for anxiety. diclofenac (VOLTAREN) 1 % topical gel APPLY 2 GRAMS TOPICALLY TO THE AFFECTED AREA FOUR TIMES DAILY 06/15/2023 diphenhydrAMINE (BENADRYL) 25 MG capsule Take 1 capsule (25 mg) by mouth 3 times daily as needed for other (to take with reglan for headache). 15 capsule 05/27/2024 drospirenone-eth inyl estradiol (KALEIGH) 3-0.03 MG tabletIndication s:Menorrhagia with regular cycle,Pelvic pain in female,PCOS (polycystic ovarian syndrome),Endome triosis Take 1 pill daily of active pills for 4 packs (12 weeks) Prior to taking 1 week of inactive pills. 112 tablet 1 11/27/2019 EPINEPHrine (ANY BX GENERIC EQUIV) 0.3 MG/0.3ML injection 2-pack Inject 0.3 mLs (0.3 mg) into the muscle once as needed for anaphylaxis. May repeat one time in 5-15 minutes if response to initial dose is inadequate. 2 each 04/26/2024 fexofenadine (NAEEM) 180 MG tablet Take 10 mg by mouth daily. fluticasone (FLONASE) 50 MCG/ACT nasal spray [place] 1 spray into both nostrils daily. 16 g 05/16/2024 galcanezumab-gnl m (EMGALITY) 120 MG/ML injectionIndicat ions:Intractable migraine with aura with status migrainosus Inject 1 mL (120 mg) subcutaneously every 28 days. 1 mL 11 06/29/2024 hydrOXYzine (ATARAX) 25 MG tablet 11/27/2019 ibuprofen (ADVIL/MOTRIN) 600 MG tablet Take 1 tablet (600 mg) by mouth every 6 hours as needed for moderate pain 20 tablet 11/12/2018 lithium (ESKALITH) 600 MG capsule Take 1 capsule by mouth at bedtime. 02/23/2024 lithium (ESKALITH) 600 MG capsule Take 900 mg by mouth at bedtime. lithium 300 MG capsule 300 mg. 02/23/2024 metFORMIN (GLUCOPHAGE-XR) 750 MG 24 hr tablet Take 750 mg by mouth. metFORMIN (GLUCOPHAGE-XR) 750 MG 24 hr tablet Take 750 mg by mouth daily (with dinner). metoclopramide (REGLAN) 10 MG tablet Take 1 tablet (10 mg) by mouth 3 times daily as needed (to take with benadryl for headache). 15 tablet 05/27/2024 norethindrone-et hinyl estradiol (MICROGESTIN 09/04) 1-20 MG-MCG tablet Take 1 tablet by mouth daily. ondansetron (ZOFRAN-ODT) 4 MG ODT tabIndications:N ausea Take 1 tablet (4 mg) by mouth every 8 hours as needed for nausea 10 tablet 02/20/2020 predniSONE (DELTASONE) 20 MG tablet Take two tablets (= 40mg) each day for 5 (five) days 10 tablet 04/26/2024 pregabalin (LYRICA) 75 MG capsule Take 75 mg by mouth. pregabalin (LYRICA) 75 MG capsule Take 150 mg by mouth 2 times daily. rizatriptan (MAXALT) 10 MG tabletIndication s:Migraine with aura and without status migrainosus, not intractable Take 1 tablet (10 mg) by mouth at onset of headache for migraine May repeat in 2 hours. Max 3 tablets/24 hours. 11/27/2019 rizatriptan (MAXALT-COLLAR FOLDER OPERATOR) 5 MG ODT DISSOLVE 1 TABLET ON THE TONGUE TWICE DAILY NEEDED FOR MIGRAINE. GIVE AT MINIMUM TWO HOURS APART. MAXIMUM DOSE 30 MG PER 24 HOURS 05/21/2024 Suvorexant (BELSOMRA) 10 MG tablet Take 10 mg by mouth at bedtime. 02/15/2024 suvorexant (BELSOMRA) 5 MG tablet Take 10 mg by mouth nightly as needed for sleep. 5-10mg tiZANidine (ZANAFLEX) 2 MG tablet Take 2 mg by mouth 2 times daily as needed for muscle spasms ubrogepant (UBRELVY) 100 MG tabletIndication s:Intractable migraine with aura with status migrainosus Take 1 tablet (100 mg) by mouth at onset of headache (Migraine. Max dose = 2 pills in a 24 hour.). 10 tablet 11 05/30/2024 documented as of this encounter ED Notes * Eron Sinha MD - 11/18/2024 8:58 PM CDT History Chief Complaint: Headache HPI Lary Angulo is a 24 year old female with history of TBI, chronic headaches/migraines, chronicright shoulder pain, currently undergoing evaluation for possible thoracic outlet syndrome who presents with headache. She notes that she began to have a headache at approximately 2:00 this afternoon. The pain began in her posterior neck and wrapped up and around her head becoming diffuse. It was of gradual onset but has become more severe at this time. Associated with this, patient notes her left arm has been stiff since yesterday. When her headache became worse, she noted discomfort increasedto her left arm. She denies vision or speech changes, chest pain, shortness of breath, positional change to symptoms to her left or right arm, or any other concerns. Independent Historian: None Review of External Notes: Reviewed 10/09/2024 office visit for comprehensive review of past medical history ROS: Review of Systems Allergies: Golimumab Passion Fruit Flavoring Agent (Non-Screening) [place] Oil [place] Oil Crab Extract Fish Oil Trazodone Medications: clonazePAM (KLONOPIN) 1 MG tablet lithium (ESKALITH CR/LITHOBID) 450 MG CR tablet pregabalin (LYRICA) 100 MG capsule tiZANidine (ZANAFLEX) 4 MG tablet adalimumab (HUMIRA *CF* PEN) 40 MG/0.4ML pen kit adalimumab (HUMIRA) 40 MG/0.8ML prefilled syringe kit albuterol (PROAIR HFA/PROVENTIL HFA/VENTOLIN HFA) 108 (90 Base) MCG/ACT inhaler albuterol (PROAIR HFA/PROVENTIL HFA/VENTOLIN HFA) 108 (90 Base) MCG/ACT inhaler cetirizine (ZYRTEC) 10 MG tablet clonazePAM (KLONOPIN) 0.5 MG tablet clonazePAM (KLONOPIN) 0.5 MG tablet diclofenac (VOLTAREN) 1 % topical gel diphenhydrAMINE (BENADRYL) 25 MG capsule drospirenone-ethinyl estradiol (KALEIGH) 3-0.03 MG tablet EPINEPHrine (ANY BX GENERIC EQUIV) 0.3 MG/0.3ML injection 2-pack fexofenadine (NAEEM) 180 MG tablet fluticasone (FLONASE) 50 MCG/ACT nasal spray galcanezumab-gnlm (EMGALITY) 120 MG/ML injection hydrOXYzine (ATARAX) 25 MG tablet ibuprofen (ADVIL/MOTRIN) 600 MG tablet lithium (ESKALITH) 600 MG capsule lithium (ESKALITH) 600 MG capsule lithium 300 MG capsule metFORMIN (GLUCOPHAGE-XR) 750 MG 24 hr tablet metFORMIN (GLUCOPHAGE-XR) 750 MG 24 hr tablet metoclopramide (REGLAN) 10 MG tablet norethindrone-ethinyl estradiol (MICROGESTIN 09/04) 1-20 MG-MCG tablet ondansetron (ZOFRAN-ODT) 4 MG ODT tab predniSONE (DELTASONE) 20 MG tablet pregabalin (LYRICA) 75 MG capsule pregabalin (LYRICA) 75 MG capsule rizatriptan (MAXALT) 10 MG tablet rizatriptan (MAXALT-COLLAR FOLDER OPERATOR) 5 MG ODT Suvorexant (BELSOMRA) 10 MG tablet suvorexant (BELSOMRA) 5 MG tablet tiZANidine (ZANAFLEX) 2 MG tablet ubrogepant (UBRELVY) 100 MG tablet Past History: Past Medical History: Diagnosis Date Anxiety Depressive disorder Personal history of diseases of respiratory system Streptococcal sore throat Unspecified constipation Vertigo Physical Exam Patient Vitals for the past 24 hrs: Vitals: 11/18/24195811/18/242005 BP: 117/83 Pulse: 64 Resp: 18 Temp: 98.2 ??F (36.8 ??C) TempSrc: Oral SpO2: 98% Weight: 91.9 kg (202 lb 9.6 oz) Height: 1.702 m (5' 7) Physical Exam Constitutional: Alert, attentive HENT: Nose: Nose normal. Mouth/Throat: Oropharynx is clear, mucous membranes are moist Eyes: EOM are normal. Pupils are equal, round, and reactive to light. CV: Regular rate and rhythm, no murmurs, rubs or gallops. Chest: Effort normal and breath sounds normal. GI: No distension. There is no tenderness MSK: Normal range of motion. Neurological: A/Ox3; Cranial nerves 2-12 intact; 5/5 strength throughout the upper and lower extremities; sensation intact to light touch throughout the upper and lower extremities; 2+ DTRs to the bilateral upper and lower extremities (biceps, BRs, patellar, achilles); normal fine motor coordination intact bilaterally; normal gait No meningismus Skin: Skin is warm and dry. Emergency Department Course Results for orders placed or performed during the hospital encounter of 11/18/24 CT Head w/o Contrast Status: None Narrative EXAM: CT HEAD W/O CONTRAST LOCATION: [facility] DATE: 11/18/2024 INDICATION: headache COMPARISON: 05/27/2024 TECHNIQUE: [...] mastoid effusion. BONES/SOFT TISSUES: No acute abnormality. Impression IMPRESSION: 1. Normal head CT. CTA Head Neck with Contrast Status: None Narrative EXAM: CTA HEAD NECK W CONTRAST LOCATION: [facility] DATE: 11/18/2024 INDICATION: headache, neck pain, paresthesias [...] of the great vessels. NONVASCULAR STRUCTURES: Unremarkable. Impression IMPRESSION: HEAD CTA: 1. Normal CTA [place]. NECK CTA: 1. Normal neck CTA. Basic metabolic panel (BMP) Status: Normal Result Value Ref Range Sodium 138 135 - 145 mmol/L Potassium 3.8 3.4 - 5.3 mmol/L Chloride 106 98 - 107 mmol/L Carbon Dioxide (CO2) 23 22 - 29 mmol/L Anion Gap 9 7 - 15 mmol/L Urea Nitrogen 15.6 6.0 - 20.0 mg/dL Creatinine 0.82 0.51 - 0.95 mg/dL GFR Estimate >90 >60 mL/min/1.73m2 Calcium 9.2 8.8 - 10.4 mg/dL Glucose 88 70 - 99 mg/dL Extra Tube ([place] Draw) Status: None Narrative The following orders were created for panel order Extra Tube ([place] Draw). Procedure Abnormality Status --------- ------ Extra Blue Top Tube[[id number]] Final result Extra Red Top Tube[[id number]] Final result Please view results for these tests on the individual orders. CBC with platelets and differential Status: Abnormal Result Value Ref Range WBC Count 11.9 (H) 4.0 - 11.0 10e3/uL RBC Count 4.58 3.80 - 5.20 10e6/uL Hemoglobin 14.2 11.7 - 15.7 g/dL Hematocrit 41.8 35.0 - 47.0 % MCV 91 78 - 100 fL MCH 31.0 26.5 - 33.0 pg MCHC 34.0 31.5 - 36.5 g/dL RDW 12.5 10.0 - 15.0 % Platelet Count 321 150 - 450 10e3/uL % Neutrophils 56 % % Lymphocytes 33 % % Monocytes 6 % % Eosinophils 4 % % Basophils 1 % % Immature Granulocytes 0 % NRBCs per 100 WBC 0 <1 /100 Absolute Neutrophils 6.7 1.6 - 8.3 10e3/uL Absolute Lymphocytes 4.0 0.8 - 5.3 10e3/uL Absolute Monocytes 0.7 0.0 - 1.3 10e3/uL Absolute Eosinophils 0.5 0.0 - 0.7 10e3/uL Absolute Basophils 0.1 0.0 - 0.2 10e3/uL Absolute Immature Granulocytes 0.1 <=0.4 10e3/uL Absolute NRBCs 0.0 10e3/uL Extra Blue Top Tube Status: None Result Value Ref Range Hold Specimen JIC Extra Red Top Tube Status: None Result Value Ref Range Hold Specimen JIC Troponin T, High Sensitivity Status: Normal Result Value Ref Range Troponin T, High Sensitivity 8 <=14 ng/L CBC + differential Status: Abnormal Narrative The following orders were created for panel order CBC + differential. Procedure Abnormality Status --------- ------ CBC with platelets and ...[[id number]] Abnormal Final result Please view results for these tests on the individual orders. Emergency Department Course & Assessments: Interventions: Medications diphenhydrAMINE (BENADRYL) injection 25 mg (25 mg Intravenous $Given 11/18/242039) metoclopramide (REGLAN) injection 10 mg (10 mg Intravenous $Given 11/18/242040) sodium chloride 0.9 % bag for CT scan flush (80 mLs Intravenous $Given 11/18/242057) iopamidol (ISOVUE-370) solution 500 mL (67 mLs Intravenous $Given 11/18/242057) Independent Interpretation (X-rays, CTs, rhythm strip): No intracranial hemorrhage on CT head Disposition: The patient was discharged to home. Impression & Plan Medical Decision Making: This a pleasant 24-year-old female with history of TBI, chronic headaches/migraines, currently undergoing evaluation for possible thoracic outlet syndrome, who presents for evaluation of headache as described above. Given pain atypical of previous and radiating from the neck, CT head and CTA head and neck were performed. Fortunately no intracranial hemorrhage, tumor, or cervical vessel dissectionis identified. Pain was of gradual onset, and with imaging proximate onset of pain, no LP is not indicated to rule out SAH. Similarly, no fever or infectious prodrome to suggest meningitis or indicate LP. She has a normal neurologic exam. Symptoms are significant proved and supportive cares. Plan follow-up with vascular for continued evaluation as per above and primary care follow-up in 3 to 5 days. Return precautions for worse pain, weakness, stroke symptoms, or any other concerns. Diagnosis: Visit Diagnosis, Associated Orders, and Comments ICD-10-CM 1. Nonintractable headache, unspecified chronicity pattern, unspecified headache type R51.9 Eron Sinha MD 11/19/24 0402 * Kiki Pineda RN - 11/18/2024 8:00 PM CDT Pt. Reports around 1400 today she developed worsened L arm numbness, tingling, stiffness, and pain with extending her L arm along with the worst L sided RO she's ever had and nausea. Took Excedrin with no relief. Pt. Reports the pain in her L arm extends into her L neck as well. Reports her L arm stiffness started last night. AVSS on RA. A & O x 4, independent, ambulatory, moving all 4 extremi ties, reports feeling unbalanced as she walks around feels like she's struggling with spatial awareness, denies vision changes, denies difficulty speaking/swallowing. Denies falls or head trauma. Pt.Reports she had an US of her neck showing complete compression of her veins and arteries within thelast 2 weeks. documented in this encounter Plan of Treatment Upcoming Encounters Date Type Department Care Team (Late st Contact Info) Description 01/17/2025 1:45 PM CDT Office Visit [address] 3[address] [place] [address] Rocky Henley MD [address] [place] [address] Ke Contreras MD [address] [place] [address] 01/25/2025 2:10 PM CDT Office Visit [facility] [address] [place] [phone] Rocky Henley MD [address] [place] [id number] documented as of this encounter Procedures Procedure Name Priority Date/Time Associated Diagnosis Comments CTA HEAD NECK W CONTRAST STAT 11/18/2024 9:[address] HEAD W/O CONTRAST STAT 11/18/2024 9:23 PM CDT EXTRA TUBE STAT 11/18/2024 8:36 PM CDT EXTRA RED TOP TUBE STAT 11/18/2024 8: 36 PM CDT EXTRA BLUE TOP TUBE STAT 11/18/2024 8 :36 PM CDT CBC WITH PLATELETS AND DIFFERENTIAL STAT 11/18/2024 8:36 PM CDT TROPONIN T, HIGH SENSITIVITY Add-On 11/18/2024 8:36 PM CDT CBC WITH PLATELETS & DIFFERENTIAL STAT 11/18/2024 8:36 PM CDT BASIC METABOLIC PANEL STAT 11/18/2024 8:36 PM CDT documented in this encounter Results * CTA Head Neck with Contrast (11/18/2024 9:24 PM CDT) Anatomical Region Laterality Modality Head, SUBRAD CT NEURO, SUBRA D CT NEURO, UMP CT NEURO, RAD CT Computed Tomography 11/18/2024 9:24 PM CDT Impressions 11/18/2024 9:42 PM CDT IMPRESSION: HEAD CTA: 1. Normal CTA [place]. NECK CTA: 1. Normal neck CTA. Narrative 11/18/2024 9:42 PM CDT EXAM: CTA HEAD NECK W CONTRAST LOCATION: [facility] DATE: 11/18/2024 INDICATION: headache, neck pain, paresthesias [...] EXAM: CTA HEAD NECK W CONTRAST LOCATION: [facility] DATE: 11/18/2024 INDICATION: headache, neck pain, paresthesias [...] Unremarkable. IMPRESSION: HEAD CTA: 1. Normal CTA [place]. NECK CTA: 1. Normal neck [...] CDT EXAM: CT HEAD W/O CONTRAST LOCATION: [facility] DATE: 11/18/2024 INDICATION: headache COMPARISON: 05/27/2024 TECHNIQUE: [...] 11/18/2024 EXAM: CT HEAD W/O CONTRAST LOCATION: [facility] DATE: 11/18/2024 INDICATION: headache COMPARISON: 05/27/2024 TECHNIQUE: [...] IMG CT ORDERABLES Final R esult * Troponin T, High Sensitivity (11/18/2024 8:36 PM CDT) Troponin T, High Sensitivity 8 <=14 ng/L 11/18/2024 9:36 PM CDT LABORATORY Comment: Either a High [...] - BLOOD ORDERABLES Fi nal Result LABORATORY [facility] [address] [facility], no room number) [place] [address], [facility] * Extra Red Top Tube (11/18/2024 8:36 PM CDT) Hold Specimen JIC 11/18/2024 9:47 PM CDT LABORATORY Blood BLOOD SPECIMEN / Unknown Venipuncture / Unknown 11/18/2024 8:36 PM CDT 11/18/2024 8:45 PM CDT us Eron Sinha MD LAB - BLOOD ORDERABLES Fi nal Result [facility] [address] Lab (1st floor, no room number) [place] [address] * Extra Blue Top Tube (11/18/2024 8:36 PM CDT) Hold Specimen JIC 11/18/2024 9:47 PM CDT RH LABORATORY Blood BLOOD SPECIMEN / Unknown Venipuncture / Unknown 11/18/2024 8:36 PM CDT 11/18/2024 8:45 PM CDT us Eron Sinha MD LAB - BLOOD ORDERABLES Fi nal Result Performing Organization Address City/[facility]/ZIP Co de Phone Number [facility] [address] Lab (1st floor, no room number) [place] [phone] [place] [address] * (ABNORMAL) CBC with platelets and differential (11/18/2024 8:36 PM CDT) WBC Count 11.9(H) 4.0 - 11.0 10e3/uL [...] LAB - BLOOD ORDERABLES Fi nal Result RH LABORATORY [facility] [address] Lab (1st floor, no room number) [place] [address], [facility] * Basic metabolic panel (BMP) (11/18/2024 8:36 PM CDT) Sodium 138 135 - 145 mmol/L 11/18/2024 [...] 11/18/2024 9:05 PM CDT LABORATORY Comment:eGFR calculated 2020 CKD-EPI equation. Calcium 9.2 8.8 - 10.4 mg/dL 11/18/2024 9:05 PM CDT LABORATORY Glucose 88 70 - 99 mg/dL 11/18/2024 9:05 PM CDT LABORATORY Blood BLOOD SPECIMEN / Unknown Venipuncture / Unknown 11/18/2024 8:36 PM CDT 11/18/2024 8:45 PM CDT us Eron Sinha MD LAB - BLOOD ORDERABLES Fi nal Result [facility] [address] Lab (1st floor, no room number) [place] [address], [facility] documented in this encounter Visit Diagnoses Diagnosis Nonintractable headache, unspecified chronicity pattern, unspecified headache type documented in this encounter Administered Medications Inactive Administered Medications - up to 3 most recent administrations Medication Order MAR Action Action Date Dose Rate Site diphenhydrAMINE (BENADRYL) injection 25 mg 25 mg, Intravenous, ONCE, On 11/18/24 at 2029, For 1 dose $Given 11/18/2024 8:40 PM CDT 25 mg iopamidol (ISOVUE-370) solution 500 mL 500 mL, Intravenous, ONCE, On 11/18/24 at 2100, For 1 dose $Given 11/18/2024 8:58 PM CDT 67 mLs metoclopramide (REGLAN) injection 10 mg 10 mg, Intravenous, Administer over 2 Minutes, ONCE, On 11/18/24 at 2029, For 1 dose, Avoid use if patient has full bowel obstruction or perforation. $Given 11/18/2024 8:41 PM CDT 10 mg sodium chloride 0.9 % bag for CT scan flush Intravenous, 100 mL, ONCE, On 11/18/24 at 2100, For 1 dose, This entry is for use by Radiology to intermittently used as a flush in patients receiving a CT scan. $Given 11/18/2024 8:58 PM CDT 80 mLs documented in this encounter Active and Recently Administered Medications Times are shown in CDT. Scheduled Medication Order 11/16/2024 11/17/2024 11/18/2024 diphenhydrAMINE (BENADRYL) injection 25 mg (COMPLETED) 25 mg, Intravenous, ONCE, On 11/18/24 at 2029, For 1 dose 2039 ($Given - Provi miranda: Anai Sorto RN) iopamidol (ISOVUE-370) solution 500 mL (COMPLETED) 500 mL, Intravenous, ONCE, On 11/18/24 at 2099, For 1 dose 2057 ($Given - Provi miranda: Meera Black, ARRT - Comment: bulk) metoclopramide (REGLAN) injection 10 mg (COMPLETED) 10 mg, Intravenous, Administer over 2 Minutes, ONCE, On 11/18/24 at 2029, For 1 dose, Avoid use if patient has full bowel obstruction or perforation. 2040 ($Given - Provi miranda: Anai Sorto RN) sodium chloride 0.9 % bag for CT scan flush (COMPLETED) Intravenous, 100 mL, ONCE, On 11/18/24 at 2100, For 1 dose, This entry is for use by Radiology to intermittently used as a flush in patients receiving a CT scan. 2057 ($Given - Provi miranda: Meera Black, ARRT) documented in this encounter Additional Health Concerns Assessment Noted Time PHQ-9 Depression Total Score: 26 020 3:00 PM CDT documented as of this encounter Care Teams Cost Engineer Relationship Specialty Start Date End Date Vane Black PA [address] [place] [address] PCP - General Family Practice 05/12/23 Sukhwinder Gerard MD [address] [phone] Gastroenterology 03/08/20 Jese Simmons DO [address] [place], [place] [phone] Resident Neurology 05/29/24 Vasquez Abdullahi MD [facility] [address] [place] [id number] Emergency Medicine 05/29/24 documented as of this encounter
--- OUTSIDE RECORDS SUMMARY | 2024-12-17 15:38 | XMS_ITS | Encounter Summary ---
Author Organization [facility] Address [facility] [place] [address] Care Team Providers Care Residential Construction Instructor Name Role Phone Sukhwinder Gerard MD Unavailable [phone] Vane Black Primary Care Provider [phone] Jese Simmons DO Unavailable [phone] Vasquez Abdullahi MD Unavailable [phone] Reason for Referral * Consultation (Routine: Next available opening) - Pending Review Specialty Diagnoses / Procedures Referred By Heide armando Referred To Contact Diagnoses Thoracic outlet syndrome of right thoracic outlet Pain of left lower extremity Rocky Henley MD [address] [place] [address] Phone: tel: fax: Referral ID Status Reason Start Date Expiration Date V isits Requested Visits Authorized [id number] Pending Review 11/28/2024 11/28/2025 1 1 Question Answer New or return visit? Return Appt Length 30 Min To be seen by Dr. Rocky Henley Comments BLE venous competency US EMG- already scheduled In person follow up after all tests are completed Please schedule this next available Appt note: Follow up to 11/23/24 Reason for Visit * Reason Onset Date Comments Appointment 11/28/2024 Encounter Details Date Type Department Care Team (Late st Contact Info) Description 11/28/2024 Telephone [facility] [place] [address] [place] [phone] Rocky Henley MD [address] [place] [phone] Appointment Social History Tobacco Use Types Packs/Day Years [...] on file Legal Sex Female 4:47 AM OFFICE RN Gender Identity Not on file Sexual Orientation Not on file documented as of this encounter Miscellaneous Notes * Telephone Encounter - Lucia Wellington - 12/04/2024 1:11 PM CDT Patient is scheduled for follow up with Dr Henley, Patient will call [facility] again to schedule the pain block * Telephone Encounter - Liv Keller RN - 11/29/2024 3:44 PM CDT Original encounter states that in person follow up is to be done after all tests are completed. This would include the scalene block and results need to be received from Daryn prior to appt. * Telephone Encounter - Lucia Wellington - 11/29/2024 1:14 PM CDT Patient is scheduled for ultrasound. Patient will schedule scalene block with Daryn and then call [facility] to schedule follow up with Dr Henley. Routing to signal helper- patient is scheduled for EMG 01/17, patient is asking if she needs to wait to see Dr Henley until after EMG? Until after the scalene block? How long after scalene block? * Telephone Encounter - Courtney Coello - 11/28/2024 1:31 PM CDT Called patient - patient was driving and requested call back tomorrow (11/29/24) BLE venous competency US EMG- already scheduled In person follow up after all tests are completed Please schedule this next available Appt note: Follow up to 11/23/24 * Telephone Encounter - Kamryn Hwang RN - 11/28/2024 9:36 AM CDT Images from the original note were not included. Routing to scheduling to coordinate the following: BLE venous competency US EMG- already scheduled In person follow up after all tests are completed Please schedule this next available Appt note: Follow up to 11/23/24 Pain referral faxed to Daryn for scalene block Kamryn MANLEY, PRIYANK [facility] Office: [phone] documented in this encounter Plan of Treatment Upcoming Encounters Date Type Department Care Team (Late st Contact Info) Description 01/17/2025 1:45 PM CDT Office Visit [facility] [address] [place] [phone] Rocky Henley MD [address] [place] [address] Ke Contreras MD [address] [place] [id number] 01/25/2025 2:10 PM CDT Office Visit [facility] [place] [address] [place] [phone] Rocky Henley MD [address] [place] [address] Scheduled Referrals Name Type Priority Associated Diagnoses Orde r Schedule Follow-Up with Vascular Medicine Referral Routine: Next available opening Thoracic outlet syndrome of right thoracic outlet Pain of left lower extremity Expected: 12/05/2024 (Approximate), Expires: 11/28/2025 documented as of this encounter Visit Diagnoses Diagnosis Thoracic outlet syndrome of right thoracic outlet- Primary Pain of left lower extremity documented in this encounter Additional Health Concerns Assessment Noted Time PHQ-9 Depression Total Score: 26 020 3:00 PM CDT documented as of this encounter Care Teams Residential Construction Instructor Relationship Specialty Start Date End Date Vane Black PA [address] [place] [address] PCP - General Family Practice 05/12/23 Sukhwinder Gerard MD [address] [place] [address] Gastroenterology 03/08/20 Jese Simmons DO [address] [place] [id number] Resident Neurology 05/29/24 Vasquez Abdullahi MD [facility] [address] [place] [address] Emergency Medicine 05/29/24 documented as of this encounter
--- OUTSIDE RECORDS SUMMARY | 2024-12-17 15:38 | XMS_ITS | Encounter Summary ---
Author Organization [facility] Address [address] [place] [address]. [place] [address] Care Team Providers Care Continuous Vulcanizing Machine Operator Name Role Phone Sukhwinder Gerard MD Unavailable [phone] Vane Black Primary Care Provider [phone] Jese Simmons DO Unavailable [phone] Vasquez Abdullahi MD Unavailable [phone] Reason for Visit * Reason Comments Leg Pain Encounter Details Date Type Department Care Team (Late st Contact Info) Description 11/11/2024 6:47 PM CDT - 11/11/2024 9:38 PM CDT Emergency [facility] Emergency Dept [address] [place] [phone] [phone] Obinna Clifford MD [facility] [address] [place], [place] [address] Pain of right lower leg; Right leg swelling Discharge Disposition: Home or Self Care Social [...] on file 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 Gender Identity Not on file Sexual Orientation Not on file documented as of this encounter Last Filed Vital Signs Vital Sign Reading Time Taken Comments Blood Pressure 123/89 11/11/2024 6:46 PM CDT Pulse 68 11/11/2024 6:46 PM CDT Temperature 37 C (98.6 F) 11/11/2024 6:46 PM CDT Respiratory Rate 16 11/11/2024 6:46 PM CDT Oxygen Saturation 100% 11/11/2024 6:46 PM CDT Inhaled Oxygen Concentration - - Weight 88.5 kg (195 lb) 11/11/2024 6:46 PM CDT Height 170.2 cm (5' 7) 11/11/2024 6:46 PM CDT Body Mass Index 30.54 11/11/2024 6:46 PM CDT documented in this encounter Discharge Instructions * Discharge Instructions* Obinna Clifford MD - 11/11/2024 9:19 PM CDT Please monitor symptoms closely. I would recommend elevating your leg at this time to help reduce swelling. Continue with your tizanidine and medications as previously prescribed. Follow-up with primary care provider in 2 to 3 days for recheck. Return to the ER if you develop worsening pain, swelling, fevers, chills, or any other new or troubling symptoms. Patient to drink fluids to ensure adequate hydration. * Attachments The following attachments cannot be sent through Care Everywhere. * Leg Pain (Lebanese) documented in this encounter Medications at Time of Discharge lithium (ESKALITH CR/LITHOBID) 450 MG CR tablet [...] headache). 15 capsule 05/27/2024 drospirenone-eth inyl estradiol (BERYL) 3-0.03 MG tabletIndication s:Menorrhagia with regular cycle,Pelvic [...] daily. fluticasone (FLONASE) 50 MCG/ACT nasal spray Welsh 1 spray into both nostrils daily. 16 [...] hours. Max 3 tablets/24 hours. 11/27/2019 rizatriptan (MAXALT-FUEL ATTENDANT) 5 MG ODT DISSOLVE 1 TABLET ON [...] as of this encounter ED Notes * Obinna Clifford MD - 11/11/2024 6:57 PM CDT Emergency Department Note History of Present Illness Chief Complaint Leg Pain HPI Lary Angulo is a 24 year old female with history of TBIs, and chronic right shoulder pain whopresents to the ED with leg pain. Patient reports being seen at [facility] for left leg swelling and pain earlier this week. Since then her left leg pain and swelling has subsided but she reports waking up today with right leg pain. She took a Tramadol which helped for a little bit but whileshe was driving to work the pain returned and she was unable to drive with her right foot. She reports the pain pulses mainly in her calf and is worse than her left leg pain. 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 She denies injury or recent long travel. Denies fever or abdominal pain, redness or skin changes. She has never had symptoms like this before. Independent Historian None Review of External Notes I reviewed the ER visit note from 11/07 at [facility] for shortness of breath and left lower extremity swelling she has a history of right thoracic outlet syndrome 11/01 had venous arterial ultrasound in right upper extremity she was referred to see vascular medicine Right upper extremity ultrasound IMPRESSION: 1. No evidence of deep vein [...] may suggest partial venous compression with arm abductedat 180 degrees. This may be a physiologic finding, clinical correlation is advised. CT Chest IMPRESSION: No pulmonary embolism. Lungs are clear. Left lower extremity US Impression: There is no evidence of deep venous thrombosis in the left lower extremity or the right common femoral vein Past Medical History Medical History and Problem List Anorexia nervosa Ankylosing spondylitis of thoracolumbar region BPD Chronic pelvic pain PTSD Drug abuse Endometriosis Episodic mood disorder Anxiety Intra-abdominal adhesions Migraine LGSIL of cervix Depression Hypothyroidism PCOS Suicidal ideation Vertigo Insomnia Prediabetic Medications Mobic Humira Klonopin Eskalith Lyrica Albuterol Beryl Emgality Atarax Metformin Microgestin Belsomra Surgical History Spine surgery king iris and fusion for scoliosis Rad resec tonsil/pillars Physical Exam Patient Vitals for the past 24 hrs: BP Temp Temp src Pulse Resp SpO2 Height Weight 11/11/24 1846 123/89 98.6 ??F (37 ??C) Temporal 68 16 100 % 1.702 m (5' 7) 88.5 kg (195 lb) Physical Exam General: Well-nourished Speaking in full sentences Eyes: Conjunctiva without injection or scleral icterus ENT: Moist mucous membranes Nares patent Pinnae normal Neck: Full ROM No stiffness appreciated Resp: Lungs CTAB No crackles, wheezing or audible rubs Good air movement CV: Normal rate, regular rhythm S1 and S2 present No murmur, gallop or rub GI: BS present Abdomen soft without distention Non-tender to light and deep palpation No guarding or rebound tenderness Skin: Warm, dry, well perfused No rashes or open wounds on exposed skin MSK: Moves all extremities Tenderness to palpation to right calf Mild tenderness to posterior right knee Mild tenderness to palpation of thigh Compartments are soft throughout to thigh and calf Specifically, anterior, lateral and posterior compartments to the calf are soft No calf pain with passive flexion/extension at the ankle Extremity warm, well-perfused with 2+ DP and PT pulse bilaterally No overlying skin changes or erythema No TTP over lower back Neuro: Alert Answers questions appropriately Moves all extremities equally 5/5 ankle dorsi/plantarflexion SILT in BLE No clonus at the ankles Gait stable Psych: Normal affect, normal mood Diagnostics Lab Results Labs Ordered and Resulted from Time of ED Arrival to Time of ED Departure BASIC METABOLIC PANEL - Abnormal Result Value Sodium 137 Potassium 3.9 Chloride 104 Carbon Dioxide (CO2) 21 (*) Anion Gap 12 Urea Nitrogen 10.6 Creatinine 0.75 GFR Estimate >90 Calcium 9.4 Glucose 100 (*) CK TOTAL - Abnormal CK 236 (*) HEPATIC FUNCTION PANEL - Normal Protein Total 7.1 Albumin 4.2 Bilirubin Total 0.4 Alkaline Phosphatase 43 AST 22 ALT 14 Bilirubin Direct 0.13 HCG QUALITATIVE - Normal hCG Serum Qualitative Negative MAGNESIUM - Normal Magnesium 2.0 NT PROBNP INPATIENT - Normal N terminal Pro BNP Inpatient 83 LITHIUM LEVEL - Normal [place] 0.72 CBC WITH PLATELETS AND DIFFERENTIAL WBC Count 11.0 RBC Count 4.71 Hemoglobin 14.3 Hematocrit 43.0 MCV 91 MCH 30.4 MCHC 33.3 RDW 12.5 Platelet Count 324 % Neutrophils 54 % Lymphocytes 36 % Monocytes 5 % Eosinophils 4 % Basophils 1 % Immature Granulocytes 0 NRBCs per 100 WBC 0 Absolute Neutrophils 5.9 Absolute Lymphocytes 4.0 Absolute Monocytes 0.6 Absolute Eosinophils 0.4 Absolute Basophils 0.1 Absolute Immature Granulocytes 0.0 Absolute NRBCs 0.0 Imaging US Lower Extremity Venous Duplex Right Final Result IMPRESSION: 1. No deep venous thrombosis in the right lower extremity. EKG None Independent Interpretation None ED Course Medications Administered Medications HYDROcodone-acetaminophen (NORCO) 5-325 MG per tablet 1 tablet (1 tablet Oral $Given 11/11/241928) Procedures None Discussion of Management None ED Course ED Course as of 11/12/24 0125 Sat Nov 11, [id number] I obtained history and examined the patient as noted above. 2121 I rechecked the patient and explained findings. Additional Documentation None Medical Decision Making / Diagnosis [facility] Diagnoses: None MIPS None [facility] Lary Angulo is a 24 year old female presenting to the ER for evaluation of right leg pain. VSon presentation unremarkable. History, exam, and ED course as outlined above. At present, precise etiology for patient's symptoms are not entirely clear. On exam, she does exhibit mild diffuse tenderness to the thigh, posterior knee, and calf. In the absence of trauma or fall, doubt acute bony abnormality. Venous ultrasound was obtained, which is negative for evidence of DVT or other acute abnormality. She has no overlying skin changes to suggest acute infectious process. Her extremities warm and well-perfused with intact distal pulses and her evaluation is not suggestive of acute arterial ins ufficiency. I considered compartment syndrome but clinically feel this to be unlikely. Her compartments are soft throughout to the thigh and calf on my initial and repeat evaluation. She exhibits no pain proportion to exam, nor pain with passive ankle dorsi/plantarflexion. For that reason I feel that compartment syndrome is unlikely. I do acknowledge a mildly elevated CK, which may be secondary to muscle spasm. 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 This level is only mildly elevated and patient otherwise maintains ability to tolerate p.o. I do not feel she requires repeat CK testing here in the ER. Lumbar radiculopathy considered, though she denies any associated back pain. Additionally, she notes feelings of mild swelling of the right leg which would be atypical for radicular pain. No objective weakness or numbness is noted on exam. Her laboratory evaluation otherwise reveals unremarkable metabolic panel, therapeutic lithium level and absence of leukocytosis. At this time, with reasonable clinical certainty I feel she is stable for discharge home from the ER with supportive measures, leg elevation, continuation of anti-inflammatory medications as needed and close follow-up. I did provide a work note to allow patient to take frequent breaks and to prevent prolonged periods of standing as this may exacerbate symptoms. She is to return to the ER should she develop worsening pain, numbness, tingling, discoloration of her leg or any other concerns. Questions of answered prior to discharge. Disposition The patient was discharged. Diagnosis ICD-10-CM 1. Pain of right lower leg M79.661 2. Right leg swelling M79.89 Scribe Disclosure: Jorge Alberto Zhen Nile, am serving as a scribe at 6:57 PM on 11/11/2024 to document services personally performed by Obinna Clifford MD based on my observations and the provider's statements to me. Obinna Clifford MD 11/12/24 0129 Obinna Clifford MD 11/12/24 0131 * Mulu Jasmine RN - 11/11/2024 6:44 PM CDT Left leg pain [facility] CT showed no PEs. Right leg pain and swelling started today. Took tramadol, improved and now worse. Pt reports occasional numbness andtingling to right leg. On IUD and PO control. documented in this encounter Plan of Treatment Upcoming Encounters Date Type Department Care Team (Late st Contact Info) Description 01/17/2025 1:45 PM CDT Office Visit [facility] [address] [place] [phone] Rocky Henley MD [address] [place] [phone] Ke Contreras MD [address] [place] [id number] 01/25/2025 2:10 PM CDT Office Visit [facility] [place] [address] [place] [phone] Rocky Henley MD [address] [place] [phone] documented as of this encounter Procedures Procedure Name Priority Date/Time Associated Diagnosis Comments US LOWER EXTREMITY VENOUS DUPLEX RIGHT STAT 11/11/2024 7:55 PM CDT EXTRA TUBE STAT 11/11/2024 7:26 PM CDT EXTRA BLUE TOP TUBE STAT 11/11/2024 7 :26 PM CDT CBC WITH PLATELETS AND DIFFERENTIAL STAT 11/11/2024 7:24 PM CDT CBC WITH PLATELETS & DIFFERENTIAL STAT 11/11/2024 7:24 PM CDT NT PROBNP INPATIENT STAT 11/11/2024 7 :24 PM CDT MAGNESIUM STAT 11/11/2024 7:24 PM CDT LITHIUM LEVEL STAT 11/11/2024 7:24 PM CDT HEPATIC FUNCTION PANEL STAT 11/11/2024 7:24 PM CDT HCG QUALITATIVE STAT 11/11/2024 7:24 PM CDT CK TOTAL STAT 11/11/2024 7:24 PM CDT BASIC METABOLIC PANEL STAT 11/11/2024 7:24 PM CDT documented in this encounter Results * US Lower Extremity Venous Duplex Right (11/11/2024 7:55 PM CDT) Anatomical Region Laterality Modality Lower Extremity Ultrasound 11/11/2024 7:55 PM CDT Impressions 11/11/2024 7:58 PM CDT IMPRESSION: 1. No deep venous thrombosis in the right lower extremity. Narrative 11/11/2024 7:58 PM CDT EXAM: US LOWER EXTREMITY VENOUS DUPLEX RIGHT LOCATION: [facility] DATE: 11/11/2024 INDICATION: R leg pain, swelling [...] US LOWER EXTREMITY VENOUS DUPLEX RIGHT LOCATION: [facility] DATE: 11/11/2024 INDICATION: R leg pain, swelling [...] venous thrombosis in the right lower extremity. Obinna Clifford MD IMG US ORDERABLES Final Re sult * Extra Blue Top Tube (11/11/2024 7:26 PM CDT) Pathologist [facility] Hold Specimen JI 11/11/2024 8:31 PM CDT [facility] Blood BLOOD SPECIMEN / Unknown Venipuncture / Unknown 11/11/2024 7:26 PM CDT 11/11/2024 7:30 PM CDT Obinna Clifford MD LAB - BLOOD ORDERABLES Fin al Result [facility] Acute Care Lab [address] [facility] Lab (1st floor, no room number) [place] [address] * CBC with platelets and differential (11/11/2024 7:24 PM CDT) Pathologist [facility] WBC Count 11.0 4.0 - 11.0 10e3/uL 11/11/2024 7:34 PM CDT [facility] RBC Count 4.71 3.80 - 5.20 10e6/uL 11/11/2024 7:34 PM CDT [facility] Hemoglobin 14.3 11.7 - 15.7 g/dL 11/11/2024 7:34 PM CDT [facility] Hematocrit 43.0 35.0 - 47.0 % 11/11/2024 7:34 PM CDT [facility] MCV 91 78 - 100 fL 11/11/2024 7:34 PM CDT [facility] MCH 30.4 26.5 - 33.0 pg 11/11/2024 7:34 PM CDT [facility] MCHC 33.3 31.5 - 36.5 g/dL 11/11/2024 7:34 PM CDT [facility] RDW 12.5 10.0 - 15.0 % 11/11/2024 7:34 PM CDT [facility] Platelet Count 324 150 - 450 10e3/uL 11/11/2024 7:34 PM CDT [facility] % Neutrophils 54 % 11/11/2024 7:34 PM CDT [facility] % Lymphocytes 36 % 11/11/2024 7:34 PM CDT [facility] % Monocytes 5 % 11/11/2024 7:34 PM CDT [facility] % Eosinophils 4 % 11/11/2024 7:34 PM CDT [facility] % Basophils 1 % 11/11/2024 7:34 PM CDT [facility] % Immature Granulocytes 0 % 11/11/2024 7:34 PM CDT [facility] NRBCs per 100 WBC 0 <1 /100 025 7:34 PM CDT [facility] Absolute Neutrophils 5.9 1.6 - 8.3 10e3/uL 11/11/2024 7:34 PM CDT [facility] Absolute Lymphocytes 4.0 0.8 - 5.3 10e3/uL 11/11/2024 7:34 PM CDT [facility] Absolute Monocytes 0.6 0.0 - 1.3 10e3/uL 11/11/2024 7:34 PM CDT [facility] Absolute Eosinophils 0.4 0.0 - 0.7 10e3/uL 11/11/2024 7:34 PM CDT [facility] Absolute Basophils 0.1 0.0 - 0.2 10e3/uL 11/11/2024 7:34 PM CDT [facility] Absolute Immature Granulocytes 0.0 <=0.4 10e3/uL 11/11/2024 7:34 PM CDT [facility] Absolute NRBCs 0.0 10e3/uL 11/11/2024 7:34 PM CDT [facility] Blood BLOOD SPECIMEN / Unknown Venipuncture / Unknown 11/11/2024 7:24 PM CDT 11/11/2024 7:30 PM CDT us Obinna Clifford MD LAB - BLOOD ORDERABLES Fin al Result [facility] Acute Care Lab [address] Lab (1st floor, no room number) [place] [address], [facility] * [place] level (11/11/2024 7:24 PM CDT) [place] 0.72 0.60 - 1.20 mmol/L 11/11/2024 8:55 PM CDT LABORATORY Comment: Therapeutic: 0.60 - 1.20 mmol/L; Toxic: >2.00 mmol/L Blood BLOOD SPECIMEN / Unknown Venipuncture / Unknown 11/11/2024 7:24 PM CDT 11/11/2024 7:30 PM CDT Obinna Clifford MD LAB - BLOOD ORDERABLES Fin al Result [facility] [address] Lab (1st floor, no room number) [place] [phone] * BNP (11/11/2024 7:24 PM CDT) N [...] LAB - BLOOD ORDERABLES Fin al Result [facility] [address] Lab (1st floor, no room number) [place] [address], [facility] * Magnesium (11/11/2024 7:24 PM CDT) [facility] Magnesium 2.0 1.7 - 2.3 mg/dL 11/11/2024 8:00 PM CDT LABORATORY Blood BLOOD SPECIMEN / Unknown Venipuncture / Unknown 11/11/2024 7:24 PM CDT 11/11/2024 7:30 PM CDT Obinna Clifford MD LAB - BLOOD ORDERABLES Fin al Result Performing Organization Address City/[facility]/ZIP Co de Phone Number [facility] Lab [address] Lab (1st floor, no room number) [place] [phone] * (ABNORMAL) CK total (11/11/2024 7:24 PM CDT) [facility] CK 236(H) 26 - 192 U/L 11/11/2024 8:00 PM CDT LABORATORY Blood BLOOD SPECIMEN / Unknown Venipuncture / Unknown 11/11/2024 7:24 PM CDT 11/11/2024 7:30 PM CDT Obinna Clifford MD LAB - BLOOD ORDERABLES Fin al Result Performing Organization Address [facility] de Phone Number [facility] Lab [address] Lab (1st floor, no room number) [place] [phone] * HCG qualitative Blood (11/11/2024 7:24 PM CDT) [facility] hCG Serum Qualitative Negative Negative DEEPIKA 11/11/2024 8:03 PM CDT LABORATORY Comment:This test is for scr eening purposes. Results should be interpreted along with the clinical picture. Confirmation testing is available if warranted by ordering [id number], HCG Quantitative . Blood BLOOD SPECIMEN / Unknown Venipuncture / Unknown 11/11/2024 7:24 PM CDT 11/11/2024 7:30 PM CDT Obinna Clifford MD LAB - BLOOD ORDERABLES Fin al Result LABORATORY [facility] Acute Care Lab [address] Lab (1st floor, no room number) [place] [address] * Hepatic function panel (11/11/2024 7:24 PM [...] - 50 U/L 11/11/2024 8:00 PM CDT LABORATORY Bilirubin Direct 0.13 0.00 - 0.30 mg/dL 11/11/2024 8:00 PM CDT [facility] Blood BLOOD SPECIMEN / Unknown Venipuncture / Unknown 11/11/2024 7:24 PM CDT 11/11/2024 7:30 PM CDT Obinna Clifford MD LAB - BLOOD ORDERABLES Fin al Result LABORATORY [facility] Care Lab [address] Lab (1st floor, no room number) [place] [address] * (ABNORMAL) Basic metabolic panel (11/11/2024 7:24 PM CDT) Sodium 137 135 - 145 mmol/L 11/11/2024 8:00 PM CDT [facility] Potassium 3.9 3.4 - 5.3 mmol/L 11/11/2024 8:00 PM CDT [facility] Chloride 104 98 - 107 mmol/L 11/11/2024 8:00 PM CDT [facility] Carbon Dioxide (CO2) 21(L) 22 - 29 mmol/L 11/11/2024 8:00 PM CDT LABORATORY Anion Gap 12 7 - 15 mmol/L 11/11/2024 8:00 PM CDT LABORATORY Urea Nitrogen 10.6 6.0 - 20.0 mg/dL 11/11/2024 8:00 PM CDT LABORATORY Creatinine 0.75 0.51 - 0.95 mg/dL 11/11/2024 8:00 PM CDT LABORATORY GFR Estimate >90 >60 mL/min/1.7 3m2 11/11/2024 8:00 PM CDT LABORATORY Comment:eGFR calculated us2020 CKD-EPI equation. Calcium 9.4 8.8 - 10.4 mg/dL 11/11/2024 8:00 PM CDT LABORATORY Glucose 100(H) 70 - 99 mg/dL 11/11/2024 8:00 PM CDT LABORATORY Blood BLOOD SPECIMEN / Unknown Venipuncture / Unknown 11/11/2024 7:24 PM CDT 11/11/2024 7:30 PM CDT Obinna Clifford MD LAB - BLOOD ORDERABLES Fin al Result LABORATORY [facility] Acute Care Lab [address] [facility] Lab (1st floor, no room number) [place] [address] documented in this encounter Visit Diagnoses Diagnosis Pain of right lower leg Pain in limb Right leg swelling documented in this encounter Administered Medications Inactive Administered Medications - up to 3 most recent administrations Medication Order MAR Action Action Date Dose Rate Site HYDROcodone-acetaminophen (NORCO) 5-325 MG per tablet 1 tablet 1 tablet, Oral, ONCE, On 11/11/24 at 1920, For 1 dose, Maximum acetaminophen dose from all sources= 75 mg/kg/day not to exceed 4 grams $Given 11/11/2024 7:29 PM CDT 1 tablet documented in this encounter Active and Recently Administered Medications Times are shown in CDT. Scheduled Medication Order 11/09/2024 11/10/2024 11/11/2024 HYDROcodone-acetaminophen (NORCO) 5-325 MG per tablet 1 tablet (COMPLETED) 1 tablet, Oral, ONCE, On 11/11/24 at 1920, For 1 dose, Maximum acetaminophen dose from all sources= 75 mg/kg/day not to exceed 4 grams 1928 ($Given - Provi miranda: Lakesha Gagnon RN) documented in this encounter Additional Health Concerns Assessment Noted Time PHQ-9 Depression Total Score: 26 02/19/ 020 3:00 PM CDT documented as of this encounter Care Teams Continuous Vulcanizing Machine Operator Relationship Specialty Start Date End Date Vane Black PA [address] [place] [address] PCP - General Family Practice 05/12/23 Sukhwinder Gerard MD [address] [address] Gastroenterology 03/08/20 Jese Simmons DO [address] [place] [phone] Resident Neurology 05/29/24 Vasquez Abdullahi MD [facility] [address] [place] [phone] Emergency Medicine 05/29/24 documented as of this encounter
[2024-12-17 15:41] VITALS: BP 125/86; PULSE 85; RESP 18; TEMP 36.6; O2SAT 98; BMI 28.9
--- NOTE | 2024-12-17 15:50 | CRLHL7_ITS ---
For Patients: As a result of the Century Cures Act, medical imaging exams and procedure reports are released immediately into your electronic medical record. You may view this report before your referring provider. If you have questions, please contact your health care provider. INDICATION: Shortness of breath RSV positive TECHNIQUE: Two view chest. FINDINGS: The lungs are clear. The heart, mediastinum and pulmonary vessels are of normal size. There is no evidence of pleural disease. Spine fusion hardware. IMPRESSION: Negative chest. Dictated by Dorys Navarro MD @ 12/17/2024 4:15:30 PM (Electronically Signed)
--- NOTE | 2024-12-17 15:54 | ED_ITS ---
HPI - General Adult General Chief complaint: Cough Stated complaint: RSV, getting worse Time Seen by Provider: 12/17/24 15:40 Source: patient Mode of arrival: ambulatory Limitations: no limitations History of Present Illness HPI narrative: 24-year-old female presenting today with COVID. Patient states that she was diagnosed with a wrist P. Symptoms have been present for 5 days which she is quite concerned because she was told that she was going to be better by days. Unfortunately, she feels like she is getting worse. She feels that she still has daily fevers up to 101. She has coughing fits which cause her to feel short of breath. She denies any chest pain. She has decreased appetite. States that she has a hard time controlling cough and does not feel like this is a normal course. Related Data Home Medications ?Medication ?Instructions ?Recorded ?Confirmed albuterol sulfate .Route 05/26/22 clonazepam 0.5 mg tablet 0.5 mg PO Q12H PRN 05/26/22 12/17/24 lithium carbonate 300 mg capsule 900 mg PO DAILY 05/26/22 12/17/24 metformin 750 mg tablet,extended 750 mg PO QAM 04/15/24 12/17/24 release 24 hr pregabalin 25 mg capsule 150 mg PO 3XD 04/15/24 12/17/24 suvorexant 10 mg tablet (Belsomra) 10 mg PO QPM PRN 04/15/24 08/19/24 tizanidine 2 mg tablet 4 mg PO QPM 04/15/24 12/17/24 cetirizine 10 mg tablet mg PO Q12H PRN 08/19/24 epinephrine 0.3 mg/0.3 mL 0.3 ml IM ONCE PRN anaphylaxis 08/19/24 08/19/24 injection, auto-injector norethindorone acetate ethiny 1 tab PO DAILY 08/19/24 08/19/24 norethindrone acetate 1 mg-ethinyl 1 tab PO DAILY 08/19/24 12/17/24 estradiol 20 mcg tablet ubrogepant 100 mg tablet (Ubrelvy) 100 mg PO .Q12 PRN 08/19/24 12/17/24 upadacitinib 15 mg tablet,extended 15 mg PO DAILY 12/17/24 12/17/24 release 24 hr (Rinvoq) Allergies Allergy/AdvReac Type Severity Reaction Status Date / Time mold Allergy Severe Anaphylaxis Verified 08/19/24 08:26 trazodone Allergy Intermediate Verified 08/19/24 08:26 sipnoi Allergy Severe Anaphylaxis Uncoded 08/19/24 08:26 Review of Systems Status of ROS: Reports: 6 or more systems reviewed and unremarkable except as noted in History and below [facility] Medical History Allergic reaction to allergy skin test ?T78.49XA - Other allergy, initial encounter (ICD-10) Surgical History History of tonsillectomy (2009) ?Z90.89 - Acquired absence of other organs (ICD-10) History of spinal fusion for scoliosis (2011) ?Z98.1 - Arthrodesis status (ICD-10) ?Z87.39 - Personal history of other diseases of the musculoskeletal system and connective tissue (ICD-10) Family History Mother Thyroid disease Father Asthma Depression Sister Asthma Autism spectrum disorder Maternal Grandfather Depression High cholesterol High blood pressure Maternal Grandmother Depression High cholesterol High blood pressure Other Coronary artery disease Social History Smoking Status: Current every day smoker Do you use any of these nicotine containing products: None and Vaping Products Second hand tobacco smoke exposure: No How often do you have a drink containing alcohol: 2-4 times a month How often do you have six or more drinks on one occasion: Less than monthly AUDIT-C Alcohol total score: 3 Non-prescribed substance use: marijuana (any form) service: No Exam Narrative: Exam Narrative: Well-nourished well-developed patient in no acute distress. Alert and oriented. Answers questions appropriately.No tangential or magical thinking noted. Patient speaks in full sentences without needing to catch her breath. Voice sounds normal. Patient is acute respiratory distress. She is saturating 98% on room air. She is not tachypneic. Breathing easy. HEENT: Normocephalic atraumatic. Pupils are equally round reactive to light. Extraocular muscles are intact. Conjunctivae are moist without any icterus noted. Moist mucous membranes. Posterior pharynx is normal. Cardiovascular: Heart is regular rate and rhythm S1 and S2 are present without any murmurs. Lungs: Clear to auscultation bilaterally no wheezes rhonchi or rales are appreciated. Patient takes deep breaths without any discomfort. Skin: Well perfused without any obvious rashes. Const: Vital Signs, click to edit/add: Vital Signs - 24 hr 12/17/24 15:41 Temperature 98 F Pulse Rate [Pulse Oximeter] 85 Respiratory Rate 18 Blood Pressure [Ri ght Upper Arm] 125/86 Pulse Oximetry 98 Oxygen Delivery Me thod Room Air Course Course ED Course: Could certainly be a normal course for RSV. We discussed that the illness lasts longer than 5 days and that is normal. However we did proceed with a CBC and chest x-ray here to rule out superimposed bacterial pneumonia. CBC is normal. Chest x-ray, read by me, does not show any infiltrates. Vital Signs Vital signs: Initial Vital Signs Temperature 98 F 12/17/24 15:41 Temperature Source Temporal Artery Scan 12/17/24 15:41 Pulse Rate 85 12/17/24 15:41 Respiratory Rate 18 12/17/24 15:41 Blood Pressure 125/86 12/17/24 15:41 Blood Pressure Mean 99 12/17/24 15:41 Pulse Oximetry 98 12/17/24 15:41 Oxygen Delivery Method Room Air 12/17/24 15:41 Vital Signs Temperature 98 F 12/17/24 15:41 Pulse Rate 85 12/17/24 15:41 Respiratory Rate 18 12/17/24 15:41 Blood Pressure 125/86 12/17/24 15:41 Pulse Oximetry 98 12/17/24 15:41 Oxygen Delivery Method Room Air 12/17/24 15:41 Temperature 98 F 12/17/24 15:41 Pulse Rate 85 12/17/24 15:41 Respiratory Rate 18 12/17/24 15:41 Blood Pressure 125/86 12/17/24 15:41 Pulse Oximetry 98 12/17/24 15:41 Oxygen Delivery Method Room Air 12/17/24 15:41 Medical Decision Making MDM Narrative Medical decision making narrative: 24-year-old female diagnosed with RSV urgent care. Continues to have cough and fevers. This is expected. No evidence of bacterial pneumonia found today. Patient is not tachypneic , hypoxic or tachycardic - all reassuring. We discussed continuing symptomatic treatment and reasons to follow-up. Lab Data Lab results reviewed: Yes I reviewed the patient's lab results Labs: Lab Results 12/17/24 Range/Units 16:00 WBC 10.16 (4.50-11.00) K/uL RBC 4.65 (4.00-5.20) m/uL Hgb 14.4 (12.0-16.0) gm/dL Hct 43.2 (33.0-51.0) % MCV 93 (80-100) fL MCH 31 (26-34) pg MCHC 33 (32-36) gm/dL RDW Coeff of Al 12.4 (11.5-15.5) % Plt Count 256 (140-440) K/uL Neut % (Auto) 63.4 (42.0-72.0) % Lymph % (Auto) 23.8 (20-44) % [place] % (Auto) 10.7 (0.0-11.0) % Eos % (Auto) 1.5 (0.0-7.0) % Baso % (Auto) 0.4 (0.0-3.0) % Neut # (Auto) 6.44 (1.7-7.0) K/uL Lymph # (Auto) 2.42 (0.90-2.90) K/uL [place] # (Auto) 1.10 H (0.00-0.90) K/UL Eos # (Auto) 0.15 (0.00-0.50) K/uL Baso # (Auto) 0.04 (0.00-0.30) K/uL Abs Immat Gran (auto) 0.02 (0.00-0.30) K/uL Imm/Tot Granulo (auto) 0.2 % Imaging Data Chest x-ray: Attestation: I have reviewed the pertinent imaging results. Radiologist's impression: TECHNIQUE: Two view chest. FINDINGS: The lungs are clear. The heart, mediastinum and pulmonary vessels are of normal size. There is no evidence of pleural disease. Spine fusion hardware. IMPRESSION: Negative chest. Discharge Plan Discharge Clinical Impression: RSV infection, Cough Patient Disposition: Home, Self-Care Condition: Stable Additional Instructions: RSV infection can last up to 2 weeks. Continue doing what you are doing as far as taking Tylenol and/or ibuprofen for fevers and achiness. Okay to try [id number] cough drops and cough syrups as needed. Prescriptions: No Action tizanidine 2 mg tablet 4 mg PO QPM metformin 750 mg tablet extended release 24 hr 750 mg PO QAM pregabalin 25 mg capsule 150 mg PO 3XD Belsomra 10 mg tablet 10 mg PO QPM PRN norethindorone acetate ethiny 1 tab PO DAILY Patient Comments: bC cetirizine 10 mg tablet PO Q12H PRN norethindrone ac-eth estradiol 1-20 mg-mcg tablet 1 tab PO DAILY epinephrine 0.3 mg/0.3 mL auto-injector 0.3 ml IM ONCE PRN (Reason: anaphylaxis) Ubrelvy 100 mg tablet 100 mg PO .Q12 PRN Rinvoq 15 mg tablet extended release 24 hr 15 mg PO DAILY albuterol sulfate .Route clonazepam 0.5 mg tablet 0.5 mg PO Q12H PRN lithium carbonate 300 mg capsule 900 mg PO DAILY Patient Comments: TAKE 1 CAPSULE BY MOUTH AT BEDTIME FOR 3 DAYS. THEN INCREASE TO 2 CAPSULES BY MOUTH AT BEDTIME Follow Up/Referrals: Vane Black PA-C [Primary Care Provider] - Stand Alone Forms: [employer] Info Instructions
--- OUTSIDE RECORDS SUMMARY | 2024-12-17 15:58 | XMS_ITS | Clinical Summary ---
Author Organization [facility] Address [address] [place] [address] Care Team Providers Care Continuous Crusher Operator Name Role Phone Vane Black Primary Care Provider [phone] Carson Cardona MD Unavailable [phone] Nazia Yoon Unavailable Allergies Active Allergy Reactions Criticality Noted Date Comments [facility] 08/25/2018 Patient reports immediate stomach pain. [place] [facility] Upset 04/27/2018 [place] [facility] Upset 04/27/2018 Patient reports it feels [...] tching,Nausea Only,Rash,Runny Nose,Shortness Of Breath High 12/15/2024 [place] Other - Describe In Comment [...] per actuation) nasal solution (FLONASE) Inhale 1 Aripeka into affected nostril(s) once daily. Active pregabalin [...] (03/18/2022): Added automatically from request for surgery [id number] Moderate restricting type anorexia nervosa 06/24 Insomnia [...] Description 12/15/2024 2:40 PM CDT Ancillary Procedure [facility] [address] [place] [address] Arrived 12/15/2024 2:00 PM CDT Office Visit [facility] Urgent Care [address] [place] [address] Maria De Jesus Hung NP Chest Pain (fever 102, body aches, chills, chest pain and tightness. x 3 days. ) 12/15/2024 Travel 11/28/2024 Patient Outreach [facility] - [place] [address] [place] [address] Nazia Yoon Care Coordination 11/27/2024 Orders Only [facility] [address] [place] [address] Manish Vasquez MD <No scans attached> 11/23/2024 12:30 PM CDT Ancillary Procedure [facility] [address] [place] [address] 11/23/2024 12:25 PM CDT Ancillary Procedure [facility] [address] [facility] [address] [place] [address] 11/23/2024 11:30 AM CDT Office Visit [facility] [address] [facility] [address] [place] [address] Manish Vasquez MD Consult (Ankylosing spondylitis of thoracolumbar region /) 11/23/2024 Travel 11/13/2024 Patient Outreach [address] [address] Nazia Yoon Care Coordination 11/08/2024 Patient Outreach [facility] - Care Management Navigation/[facility] [address] [place] [address] Helen Santos Care Management Intake (Engagement Outreach/) 11/08/2024 Patient Outreach [address] [address] Nazia Yoon Care Coordination 11/07/2024 5:14 PM CDT - 11/07/2024 7:30 PM CDT Emergency [facility] [address] [place] [address] Gertrude Zacarias PA Shortness of breath (Primary Dx); Pain and swelling of left lower extremity Discharge Disposition: Home Self Care 11/07/2024 1:00 PM CDT Ancillary Procedure [address] [place] [address] 11/07/2024 12:00 PM CDT Office Visit [facility] [address] [place] [address] Mimi Keita PA Leg Pain/problem (Left leg pain) 11/07/2024 11:30 AM CDT Office Visit [address] [place] [address] Mimi Keita PA Recheck (Chronic right shoulder pain) 11/07/2024 Travel 10/31/2024 3:54 PM CDT - 10/31/2024 11:59 PM CDT Hospital Encounter [facility] [address] [place] [address] Eleuterio Pérez III, MD Chronic right shoulder pain; Biceps tendonitis, right 10/31/2024 Travel 10/24/2024 10:45 AM CDT Office Visit [address] [place] [address] Eleuterio Pérez III, MD Shoulder Pain/problem (Right shoulder pain) 10/24/2024 Travel 10/20/2024 8:20 AM LOG TURNER Procedure Only [address] [place] [address] Sandy Price DO Procedure (Right shoulder ultrasound evalu... 10/20/2024 Travel 10/17/[address] [place] [address] Eleuterio Pérez III, MD Appointment 10/13/[address] [place] [address] Sandy Price DO Appointment 10/10/2024 1:00 PM LOG TURNER Office Visit [address] [place] [address] Eleuterio Pérez III, MD Shoulder Pain/problem (WC; DOI: 06/10/24; right shoulder) 10/10/[address] [address] Al Alston MD Appointment 10/10/2024 Travel 10/09/2024 10:45 AM LOG TURNER Office Visit [facility] [address] [place] [address] Vane Black PA Concerns (Work comp follow up. Concerns about rotator cuff.) 10/09/2024 Refill [facility] [address] [place] [address] Karlo Ni MD Refill Request (Tizanidine HCL 4 mg tablet ) 10/08/2024 Travel 09/29/2024 10:40 AM LOG TURNER Procedure Only [address] [address] Al Alston MD Procedure (ultrasound guided right shoulde... 09/29/2024 Travel 09/27/2024 1:20 PM LOG TURNER Office Visit [facility] [address] [place] [address] Al Alston MD Shoulder Pain/problem (Right shoulder pain) 09/27/2024 Telephone [facility] [address] [place] [address] Al Alston MD Appointment 09/27/2024 Travel 09/20/2024 2:30 PM LOG TURNER Office Visit [facility] [address] [place] [address] [place] [address] Jonatan Lozada PA Shoulder Pain/problem (right shoulder [...] Sex Assigned at Female 09/15/2023 10:11 AM LOG TURNER Legal Sex Female 4:18 PM CDT Gender Identity Female 09/15/2023 10:11 AM LOG TURNER Sexual Orientation Not on file Occupation Industry Job Start Date Job End Date unemployeed Not on file Not on file 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 on 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 Not on file [...] Description 01/18/2025 9:30 AM CDT Office Visit [facility] [address] [phone] [place] [address] [place], [place] [phone] 01/30/2025 2:00 PM CDT Telemedicine [facility] [address] [facility] [address] [place] [address] Asya Owen MD [address] [facility] [address] [place] [address] Health Maintenance Due Date Last Done Comments [...] right HBSAG (HBS) Routine 10/09/2024 12:02 PM LOG TURNER Screening examination for STD (sexually transmitted disease) ANTI HCV Routine 10/09/2024 12:02 PM LOG TURNER Screening examination for STD (sexually transmitted disease) ANTI HIV 1/2 Routine 10/09/2024 12:02 PM LOG TURNER Screening examination for STD (sexually transmitted disease) GC CHLAMYDIA TRACH PROBE Routine 10/09/2024 12:00 PM LOG TURNER Screening examination for STD (sexually transmitted disease) TREPONEMA PALLIDUM Routine 10/09/2024 12 :00 PM LOG TURNER Screening examination for STD (sexually transmitted disease) DREDGE OR BARGE SHORE HAND THIN PREP PAP SCREEN IMAGED Routine 01/25/2024 1:25 PM CDT Screening for malignant neoplasm of cervix from Last 3 Months or Most Recently Relevant to Health Maintenance Results * (ABNORMAL) CBC WITH AUTO DIFFERENTIAL (12/15/2024 2:45 PM CDT) WHITE BLOOD COUNT 12.0(H) 4.5 - 11.0 thou/cu mm 12/15/2024 3:[address] [facility] RED BLOOD COUNT 4.82 4.00 - 5.20 mil/cu mm 12/15/2024 3:[address] [facility] HEMOGLOBIN 14.7 12.0 - 16.0 g/dL 12/15/2024 3:[address] [facility] HEMATOCRIT 45.4 33.0 - 51.0 % 12/15/2024 3:[address] [facility] MCV 94 80 - 100 fL 12/15/2024 3:[address] [facility] MCH 30.5 26.0 - 34.0 pg 12/15/2024 3:[address] [facility] MCHC 32.4 32.0 - 36.0 g/dL 12/15/2024 3:[address] [facility] RDW 12.8 11.5 - 15.5 % 12/15/2024 3:[address] [facility] PLATELET COUNT 272 140 - 440 thou/cu mm 12/15/2024 3:[address] [facility] MPV 9.6 6.5 - 11.0 fL 12/15/2024 3:[address] [facility] % NEUT 74.5 % 12/15/2024 3:[address] [facility] % LYMPH 16.6 % 12/15/2024 3:[address] [facility] % MONO 7.1 % 12/15/2024 3:[address] [facility] % EOS 1.4 % 12/15/2024 3:[address] [facility] % BASO 0.4 % 12/15/2024 3:[address] [facility] ABSOLUTE NEUTROPHILS 9.0(H) 1.7 - 7.0 thou/cu mm 12/15/2024 3:[address] [facility] ABSOLUTE LYMPHOCYTES 2.0 0.9 - 2.9 thou/cu mm 12/15/2024 3:05 PM CDT [facility] ABSOLUTE MONOCYTES 0.9(H) <0.9 thou/cu mm 12/15/2024 3:05 PM CDT [facility] ABSOLUTE EOSINOPHILS 0.2 <0.5 thou/cu mm 12/15/2024 3:05 PM CDT [facility] ABSOLUTE BASOPHILS 0.1 <0.3 thou/cu mm 12/15/2024 3:05 PM CDT [facility] Blood BLOOD SPECIMEN / Unknown [facility] / Unknown 12/15/2024 2:45 PM CDT 12/15/2024 2:45 PM CDT us Maria De Jesus Hung NP HEMATOLOGY Final Res ult [facility] [address] [place] [address] * XR CHEST 2 VIEWS PA AND [...] (Electronically Signed) us Maria De Jesus Hung QUALITY ASSURANCE CLERK GENERAL IMAGING Final Res ult * (ABNORMAL) COVID/FLU/RSV PANEL (12/15/2024 2:28 PM CDT) COVID 19 [facility] Negative Negative 12/15/2024 11:16 PM CDT [facility] Comment:All PCR tests are pedro bject to false negative result due to variability in viral load and collection technique. A negative result does not rule out a SARS-CoV-2 infection. Clinical correlation required. INFLUENZA A PCR Negative 11:16 PM CDT [facility] INFLUENZA B PCR Negative 11:16 PM CDT [facility] Respiratory Syncytial Virus Positive(A) 12/15/2024 11:16 PM CDT [facility] Swab NASOPHARYNGEAL SWAB / Unknown Non-Blood / Unknown 12/15/2024 2:28 PM CDT 12/15/2024 2:35 PM CDT us Maria De Jesus Hung NP MICROBIOLOGY Final Res ult [facility] [address] [place] [address], [place] * QUANTIFERON??-TB GOLD PLUS 1 TUBE ([facility]) (11/23/2024 12:36 PM CDT) QUANTIFERON(R)-T B GOLD PLUS, 1 TUBE NEGATIVE NEGATIVE [facility] Comment: Negative test result. M. tuberculosis complex infection unlikely. NIL 0.03 IU/mL [facility] MITOGEN-NIL 9.97 IU/mL [facility] TB[facility]-NIL 0.00 IU/mL [facility] [...] T-lymphocytes. For additional information, please refer to https://education.[employer]faq/XJC476 (This link is being provided for informational/ educational purposes only.) Blood BLOOD SPECIMEN / Unknown 11/23/2024 12:36 PM CDT 11/23/2024 12:37 PM CDT us Manish Vasquez MD SEND OUTS Fin al Result [employer] [facility] [address] [place] [address], [place] [phone] [facility] [address] [place] [address] * SEDIMENTATION RATE (11/23/2024 12:36 PM CDT) Pathologist [facility] SED RATE BY MODIFIED WESTERGREN 9 < OR = 20 mm/h [facility] Blood BLOOD SPECIMEN / Unknown 11/23/2024 12:36 PM CDT 11/23/2024 12:37 PM CDT Manish Vasquez MD HEMATOLOGY Fin al Result Performing Organization Address [facility]/ZIP Co de Phone Number [facility] [address] [place] [address], [place] [phone] [facility] [address] [place] [address] * ANCA PANEL FOR VASCULITIS (11/23/2024 12:36 PM CDT) Pathologist [facility] ANCA SCREEN NEGATIVE NEGATIVE [employer] Comment: ANCA screen uses indirect immunofluorescence [...] OUTS Fin al Result Performing Organization Address City/[facility] Co de Phone Number [employer] [facility] [address] [place] [address], [place] [phone] [facility] [address] [place] [address] * IGA (11/23/2024 12:36 PM CDT) Pathologist [facility] IMMUNOGLOBULIN A 96 47 - 310 mg/dL [facility] Blood BLOOD SPECIMEN / Unknown 11/23/2024 12:36 PM CDT 11/23/2024 12:37 PM CDT Manish Vasquez MD CHEMISTRY Fin al Result Performing Organization Address [facility]/ZIP Co de Phone Number [employer] [facility] [address] [place] [address], [place] [phone] [facility] [address] [facility] [place] [address] * IGM ANTI-HBC (11/23/2024 12:36 PM CDT) Pathologist [facility] HEPATITIS B CORE ANTIBODY (IGM) NON-REACTI VE NON-REACTI VE [facility] Comment: For additional information, please refer to http://education.[employer]./faq/WIQ644 (This link is being provided for informational/ educational purposes only.) Blood BLOOD SPECIMEN / Unknown 11/23/2024 12:36 PM CDT 11/23/2024 12:37 PM CDT Mnaish Vasquez MD SEND OUTS Fin al Result Performing Organization Address [facility] Co de Phone Number [employer] [facility] [address] [place] [address], [place] [phone] [facility] [address] [place] [address] * (ABNORMAL) C-REACTIVE PROTEIN (11/23/2024 12:36 PM CDT) Pathologist [facility] C-REACTIVE PROTEIN 9.0(H) <8.0 mg/L [employer] Blood BLOOD SPECIMEN / Unknown 11/23/2024 12:36 PM CDT 11/23/2024 12:37 PM CDT us Manish Vasquez MD CHEMISTRY Fin al Result Performing Organization Address [facility]/ZIP Co de Phone Number [employer] [facility] [address] [facility] [place] [address], [place] [phone] [facility] [address] [place] [address] * CK TOTAL (11/23/2024 12:36 PM CDT) CREATINE KINASE, TOTAL 67 20 - 239 U/L [employer] Blood BLOOD SPECIMEN / Unknown 11/23/2024 12:36 PM CDT 11/23/2024 12:37 PM CDT Manish Vasquez MD CHEMISTRY Fin al Result Performing Organization Address City/[facility]/ZIP Co de Phone Number [employer] [facility] [address] [place] [address], [place] [phone] [facility] [facility] [address] [place] [address] * IN CLINIC UA w/ Sediment Exam Reflexed per Criteria (11/23/2024 12:35 PM CDT) COLOR YELLOW YELLOW [facility] ( APPEARANCE CLEAR CLEAR [facility] ( SPECIFIC GRAVITY 1.020 1.001 - 1.035 [facility] ( PH 7.0 5.0 - 8.0 [facility] ( GLUCOSE NEGATIVE NEGATIVE [facility] ( BILIRUBIN NEGATIVE NEGATIVE [facility] ( KETONES NEGATIVE NEGATIVE [facility] ( OCCULT BLOOD NEGATIVE NEGATIVE [facility] ( PROTEIN NEGATIVE NEGATIVE [facility] ( NITRITE NEGATIVE NEGATIVE [facility] ( LEUKOCYTE ESTERASE NEGATIVE NEGATIVE [facility] ( Urine URINE SPECIMEN / Unknown 11/23/2024 12:35 PM CDT 11/23/2024 12:35 PM CDT Manish Vasquez MD URINE Fin al Result PENDING SALE TO [facility] [address] [place] [address], [place] [facility] ( [address] [place] [address] * PROTEIN/CREAT RATIO,URINE (11/23/2024 12:34 PM CDT) PROTEIN QUANT,RAND URINE 8 1 - 14 mg/dL 11/23/2024 6:54 PM CDT [facility] CREAT,RANDOM URINE 131.0 28.0 - 217.0 mg/dL 11/23/2024 6:54 PM CDT [facility] PROT/CREAT RATIO,UR 0.1 <0.2 11/23/2024 6:54 PM CDT [facility] Urine URINE SPECIMEN / Unknown Non-Blood / Unknown 11/23/2024 12:34 PM CDT 11/23/2024 12:34 PM CDT Manish Vasquez MD URINE Fin al Result [facility] [address] [place] [address], [place] * XR SPINE THORACIC 2 VIEWS [...] @ Nov 23 2024 12:44PM (Electronically Signed) [email or web address] Procedure Note Micah Durham MD - 11/23/2024 [...] @ Nov 23 2024 12:44PM (Electronically Signed) [email or web address] us Manish Vasquez MD GENERAL IMAGING Fin [...] @ Nov 23 2024 12:42PM (Electronically Signed) [email or web address] Procedure Note Micah Durham MD - 11/23/2024 [...] provider. EXAM: CT CHEST PE STUDY LOCATION: [facility] MEDICAL IMAGING DATE: 11/07/2024 INDICATION: Pulmonary [...] provider. EXAM: CT CHEST PE STUDY LOCATION: [facility] MEDICAL IMAGING DATE: 11/07/2024 INDICATION: Pulmonary [...] EXAM: XR FOOT 3 VIEWS LEFT LOCATION: [facility] MEDICAL IMAGING DATE: 11/07/2024 INDICATION: Pain, swelling. COMPARISON: None. Procedure Note Redd Lopez MD - 11/07/2024 For Patients: As a result of the Cures Act, medical imagingexams and procedure reports are released immediately into your electronicmedical record. You may view this report before your referring provider.If you have questions, please contact your health care provider. EXAM: XR FOOT 3 VIEWS LEFT LOCATION: [facility] MEDICAL IMAG[facility] DATE: 11/07/2024 INDICATION: Pain, swelling. COMPARISON: None. IMPRESSION: Anatomic alignment. No acute displaced fracture. No significant jointspace narrowing. No localizing soft tissue swelling. us Gertrude ABERNATHY GENERAL IMAGING Final R esult * TROPONIN T (HS) ACUTE W/2HR REFLEX (11/07/2024 5:52 PM CDT) TROPONIN T HS <6 6-10 ng/L ng/L 11/07/2024 6:22 PM CDT [facility] Blood BLOOD SPECIMEN / Unknown Non-Lab Venipuncture / Unknown 11/07/2024 5:52 PM CDT 11/07/2024 5:52 PM CDT [facility] - 11/07/2024 6:22 PM CDT hs-cTnT [...] CHEMISTRY Final R esult Performing Organization Address [facility] de Phone Number [facility] SENDOUT INTERNAL [facility] [phone] [place] [address] * EXTRA TUBE BLUE (11/07/2024 5:52 PM CDT) Blood BLOOD SPECIMEN / Unknown Non-Lab Venipuncture / Unknown 11/07/2024 5:52 PM CDT 11/07/2024 5:52 PM CDT Gertrude ABERNATHY LABORATORY Final R esult Performing Organization Address [facility] Phone Number [facility] SENDOUT INTERNAL [facility] [address] [address] [place] [address] * TSH (11/07/2024 5:52 PM CDT) [facility] TSH 2.95 0.27 - 4.20 uIU/mL 11/07/2024 6:22 PM CDT [facility] Blood BLOOD SPECIMEN / Unknown Non-Lab Venipuncture / Unknown 11/07/2024 5:52 PM CDT 11/07/2024 5:52 PM CDT Narrative [facility] - 11/07/2024 6:22 PM CDT In Adults, TSH values between 5.00 and 10.00 uIU/ml do not necessarily indicate the presence of Hypothyroidism. Correlation with clinical findings such as presence of goiter and/or Thyroperoxidase (TPO) Antibody may be helpful. For more information please refer to HILARY 2004; 291: 228-238. Gertrude ABERNATHY CHEMISTRY Final R esult Performing Organization Address [facility] de Phone Number [facility] SEND[facility] INTERNAL [facility] [address] [address] [place] [address] * CBC W PLT NO DIFF (11/07/2024 5:52 PM CDT) WHITE BLOOD COUNT 10.2 4.5 - 11.0 thou/cu mm 11/07/2024 5:54 PM CDT [facility] RED BLOOD COUNT 4.49 4.00 - 5.20 mil/cu mm 11/07/2024 5:54 PM CDT [facility] HEMOGLOBIN 14.1 12.0 - 16.0 g/dL 11/07/2024 5:54 PM CDT [facility] HEMATOCRIT 41.7 33.0 - 51.0 % 11/07/2024 5:54 PM CDT [facility] MCV 93 80 - 100 fL 11/07/2024 5:54 PM CDT [facility] MCH 31.4 26.0 - 34.0 pg 11/07/2024 5:54 PM CDT [facility] MCHC 33.8 32.0 - 36.0 g/dL 11/07/2024 5:54 PM CDT [facility] RDW 12.8 11.5 - 15.5 % 11/07/2024 5:54 PM CDT [facility] PLATELET COUNT 326 140 - 440 thou/cu mm 11/07/2024 5:54 PM CDT [facility] MPV 9.1 6.5 - 11.0 fL 11/07/2024 5:54 PM CDT [facility] NRBC 0.0 % 11/07/2024 5:54 PM CDT [facility] ABS NRBC 0.0 thou /cu mm 11/07/2024 5:54 PM CDT [facility] Blood BLOOD SPECIMEN / Unknown Non-Lab Venipuncture / Unknown 11/07/2024 5:52 PM CDT 11/07/2024 5:52 PM CDT us Gertrude ABERNATHY HEMATOLOGY Final R esult [facility] SENDOUT INTERNAL ZIP [phone] [place] [address] * (ABNORMAL) D-DIMER,QUANTITATIVE (11/07/2024 5:52 PM CDT) [facility] D-DIMER,QUANTI TATIVE 0.52(H) <=0.49 FEU mcg/mL 11/07/2024 6:28 PM CDT [facility] Blood BLOOD SPECIMEN / Unknown Non-Lab Venipuncture / Unknown 11/07/2024 5:52 PM CDT 11/07/2024 5:52 PM CDT [facility] - 11/07/2024 6:28 PM CDT The [...] HEMATOLOGY Final R esult Performing Organization Address City/[facility]/ZIP Co de Phone Number [facility] SENDOUT INTERNAL ZIP [address] [place] [address] * MAGNESIUM (11/07/2024 5:52 PM CDT) [facility] MAGNESIUM 2.2 1.6 - 2.6 mg/dL 11/07/2024 6:22 PM CDT [facility] Blood BLOOD SPECIMEN / Unknown Non-Lab Venipuncture / Unknown 11/07/2024 5:52 PM CDT 11/07/2024 5:52 PM CDT Gertrude ABERNATHY CHEMISTRY Final R esult [facility] SENDOUT INTERNAL ZIP [phone] [place] [address] * (ABNORMAL) HEPATIC FUNCTION PANEL (11/07/2024 5:52 PM CDT) [facility] ALBUMIN 4.0 4.0 - 4.9 g/dL 11/07/2024 6:22 PM CDT [facility] PROTEIN,TOTAL 7.2 6.0 - 8.0 g/dL 11/07/2024 6:22 PM CDT [facility] BILIRUBIN,TOTAL 0.2 0.0 - 1.2 mg/dL 11/07/2024 6:22 PM CDT [facility] BILIRUBIN,DIRECT 0.1 0.0 - 0.2 mg/dL 11/07/2024 6:22 PM CDT [facility] BILIRUBIN,INDIRE CT 0.1(L) 0.2 - 0.8 mg/dL 11/07/2024 6:22 PM CDT [facility] ALK PHOSPHATASE 42 35 - 104 IU/L 11/07/2024 6:22 PM CDT [facility] ALT (SGPT) 9(L) 10 - 35 IU/L 11/07/2024 6:22 PM CDT [facility] AST (SGOT) 25 10 - 35 IU/L 11/07/2024 6:22 PM T [facility] Blood BLOOD SPECIMEN / Unknown Non-Lab Venipuncture / Unknown 11/07/2024 5:52 PM CDT 11/07/2024 5:52 PM CDT Gertrude ABERNATHY CHEMISTRY Final R esult [facility] SENDOUT INTERNAL ZIP [phone] [place] [address] * BASIC METABOLIC PANEL (11/07/2024 5:52 PM CDT) SODIUM 139 136 - 145 mmol/L 11/07/2024 6:22 PM CDT [facility] POTASSIUM 4.0 3.5 - 5.1 mmol/L 11/07/2024 6:22 PM T [facility] CHLORIDE 107 98 - 107 mmol/L 11/07/2024 6:22 PM CDT [facility] CO2,TOTAL 22 22 - 29 mmol/L 11/07/2024 6:22 PM CDT [facility] ANION GAP 10 5 - 18 11/07/2024 6:22 PM T [facility] GLUCOSE 89 70 - 99 mg/dL 11/07/2024 6:22 PM CDT [facility] CALCIUM 9.7 8.8 - 10.4 mg/dL 11/07/2024 6:22 PM T [facility] Comment: Reference ranges for this test were updated on 06/20/2024 to reflect our healthy population more accurately. Reference range changes are not retroactively applied to results, but previous results using the same methodology can be interpreted in the context of the new reference range. BUN 12 6 - 20 mg/dL 11/07/2024 6:22 PM CDT [facility] CREATININE 0.74 0.50 - 0.90 mg/dL 11/07/2024 6:22 PM CDT [facility] BUN/CREAT RATIO 16 10 - 20 6:22 PM CDT [facility] eGFR >90 >90 mL/min/1.7 3m2 11/07/2024 6:22 PM CDT [facility] Comment:As of 2021, eG FR is [...] us Gertrude ABERNATHY CHEMISTRY Final R esult [facility] SENDOUT INTERNAL ZIP [id number] [place] [address] * EKG 12 LEAD (11/07/2024 5:37 PM CDT) Interpretation Normal sinus rhythm Nonspecific T wave abnormality Abnormal ECG BEYOND NOW Ventricular Rate 63 BPM BEYOND NOW Atrial Rate 63 BPM BEYOND NOW P-R Interval 152 ms BEYOND NOW QRS Duration 90 ms BEYOND NOW QT 404 ms BEYOND NOW QTc 413 ms BEYOND NOW P [place] 25 degrees BEYOND NOW R [place] 2 degrees BEYOND NOW T [place] 12 degrees BEYOND NOW 11/07/2024 5:37 PM CDT 11/08/2024 10:55 AM CDT us Gertrude ABERNATHY EKG ORD Final R esult BEYOND NOW [place], [place] * US VENOUS LOWER EXTREMITY LEFT [...] MD: ELEUTERIO PÉREZ III Site: [facility] Study performed: Thoracic outlet testing, (right). [...] Accreditation Commission (ICA/Vascular), www.intersocietal.org/vascular Report generated by gauzz. Final Procedure Note Jeffy Chun MD - 11/01/2024 VASCULAR ULTRASOUND REPORT MICKY ANGULO : 2000 Study Date: 10/31/2024 4:06:21 PM Age: 24 years Tech: PAMELA Gender: F Referring MD: ELEUTERIO PÉREZ III Site: [facility] Study performed: Thoracic outlet testing, (right). [...] theIntersocietal Accreditation Commission (ICA/Vascular),www.intersocietal.org/vascular Report generated by gauzz. Final us Eleuterio Pérez III, MD Nguyễn al Result * US ARTERIAL UPPER EXTREMITY RIGHT (10/31/2024 4:24 PM CDT) Anatomical Region Laterality Modality ARMS, ARM R Ultrasound 10/31/2024 3:55 PM CDT Narrative 11/01/2024 11:52 AM CDT VASCULAR ULTRASOUND REPORT MICKY ANGULO : 2000 Study Date: 10/31/2024 3:55:13 PM Age: 24 years Tech: PAMELA Gender: F Referring MD: ELEUTERIO PÉREZ III Site: [facility] Study performed: Upper extremity thoracic outlet [...] Accreditation Commission (ICA/Vascular), www.intersocietal.org/vascular Report generated by gauzz. Final Procedure Note Jeffy Chun MD - 11/01/2024 VASCULAR ULTRASOUND REPORT MICKY ANGULO : 2000 Study Date: 10/31/2024 3:55:13 PM Age: 24 years Tech: CHAITNAYAM Gender: F Referring MD: ELEUTERIO PÉREZ III Site: [facility] Study performed: Upper extremity thoracic outlet [...] theIntersocietal Accreditation Commission (ICA/Vascular),www.intersocietal.org/vascular Report generated by gauzz. Final Eleuterio Pérez III, MD [facility] al Result * HBSAG (HBS) [26457.2] (10/09/2024 12:02 PM LOG TURNER) HEPATITIS B SURFACE ANTIGEN NON-REACTI VE NON-REACTI VE [employer]Rebeca Harmon Comment: For additional information, please refer to http://Virtru/faq/LVH374 (This link is being provided for informational/ educational purposes only.) Blood BLOOD SPECIMEN / Unknown 10/09/2024 12:02 PM LOG TURNER 10/09/2024 12:02 PM LOG TURNER Vane ABERNATHY SEND OUTS Final Res ult [employer] [facility] [address] [place] [address], [employer] [address] [place] [address] * ANTI HCV [20604.2] (10/09/2024 12:02 PM LOG TURNER) HEPATITIS C ANTIBODY NON-REACTI VE NON-REACT ANGY [employer]Rebeca Harmon Comment: HCV antibody was non-reactive. There is no laboratory evidence of HCV infection. In most cases, no further action is required. However, if recent HCV exposure is suspected, a test for HCV RNA (test code 23457) is suggested. For additional information please refer to http://Dime[employer]faq/AQC41a4 (This link is being provided for informational/ educational purposes only.) Blood BLOOD SPECIMEN / Unknown 10/09/2024 12:02 PM LOG TURNER 10/09/2024 12:02 PM LOG TURNER Vane ABERNATHY SEND OUTS Final Res ult [employer] [facility] [address] [place] [address], [facility] [place] [address] [place] [address] * ANTI HIV 1/2 [18513.0] (10/09/2024 12:02 PM LOG TURNER) [facility] HIV AG/AB, 4TH GEN NON-REACT ANGY NON-REACT ANGY [facility] [place] Comment: HIV-1 antigen and HIV-1/HIV-2 antibodies were [...] purpose. For additional information please refer to http://education.SheZoom.PetroDE/faq/JDJ432 (This link is being provided for informational/ educational purposes only.) The performance of this assay has not been clinically validated in patients less than 2 years old. Blood BLOOD SPECIMEN / Unknown 10/09/2024 12:02 PM LOG TURNER 10/09/2024 12:02 PM LOG TURNER us Vane ABENRATHY SEND OUTS Final Res ult [employer] [facility] [address] [place] [address], [employer] [place] [address] [place] [address] * TREPONEMA PALLIDUM [74065.1] (10/09/2024 12:00 PM LOG TURNER) TREPONEMA PALLIDUM Non-Reacti ve Non-Reacti ve 10/09/2024 11:32 PM LOG TURNER [facility] Blood BLOOD SPECIMEN / Unknown [facility] / Unknown 10/09/2024 12:00 PM LOG TURNER 10/09/2024 12:01 PM LOG TURNER Vane ABERNATHY SEND OUTS Final Res ult [facility] [address] [place] [address], [place] * GC CHLAMYDIA [[id number]] - urine (10/09/2024 12:00 PM LOG TURNER) CHLAMYDIA PROBE Negative 12:56 PM LOG TURNER [facility] N GONORRHOEAE PROBE Negative 10/10/2024 12:56 PM LOG TURNER [facility] Other URINE SPECIMEN / Unknown Non-Blood / Unknown 10/09/2024 12:00 PM LOG TURNER 10/09/2024 12:01 PM LOG TURNER Vane ABERNATHY MICROBIOLOGY Final Res ult [facility] [address] [place] [address], [place] * (ABNORMAL) DREDGE OR BARGE SHORE HAND THIN PREP PAP SCREEN IMAGED [[id number]] (01/25/2024 1:25 PM CDT) Case Report Gynecologic Cytology Report Case: [id number] Authorizing Provider: Vane Black PA Collected: 01/25/2024 1325 Ordering Location: [facility] Received: 01/25/2024 1409 Clinic First Screen: Jenelle Perry Pathologist: Deandra Herrera MD Specimen: DREDGE OR BARGE SHORE HAND ThinPrep Vial Screening, Cervical 02/07/2024 11:04 AM CDT [facility] INTERPRETATION/ RESULT LOW GRADE SQUAMOUS INTRAEPITHELIAL LESION (LSIL)(A) (none) 02/07/2024 11:04 AM CDT [facility] at 1104 CDT SPECIMEN ADEQUACY Satisfactory for evaluation Endocervical component present 02/07/2024 11:04 AM CDT [facility] Date of LMP Unknown 02/07/2024 11:04 AM CDT [facility] Last Pap Date 05/30/2020 02/07/2024 11:04 AM CDT [facility] Last Pap Result NIL 11:04 AM CDT [facility] Abnormal Pap or [place] Bx in last 5 years No 02/07/2024 11:04 AM CDT [facility] Menstrual Status Hormonally Suppressed 02/07/2024 11:04 AM CDT [facility] [place] Bx Done Today No 02/07/2024 11:04 AM CDT [facility] Additional Information None given 02/07/2024 11:04 AM CDT [facility] Comment: Cytology is screened at [facility] - [address] [address] and [facility] - [address], [place] [address] and [facility] - [address] [facility] [place] [address] Interpreted at [facility] - [address], [place] [address] Automated Review Successful 02/07/2024 11:04 AM CDT [facility] Comment:Specimen processed s uccessfully by automated contact lens molder device, ThinPrep Imaging System, [employer] Note The pap test is a [...] and malignant lesions. 02/07/2024 11:[address] [facility]AT[facility] Other (Cervical) Non-Blood / Unknown 01/25/2024 1:25 PM CDT 01/25/2024 2:09 PM CDT us Vane ABERNATHY PATHOLOGY/CYTOLOGY Final Result [facility] [address] [place] [address], [place] from Last 3 Months or Most Recently Relevant to Health Maintenance Additional Health Concerns Infection Onset Date Last Indicated RESPIRATORY SYNCYTIAL VIRUS (RSV) 12/15/2024 12/15/[address] [place] [address] [facility] [address] [place] [address] [employer]URANCE [address] [place] [address] [employer] MANAGMENT Advance Directives * Full Code (Latest Code Status on File) Date Activated Date Inactivated Comments 02/14/2024 8:57 AM 02/14/2024 9:15 PM Question Answer Comments Code Status Discussion: Reviewed Preferences * Full Code Date Activated Date Inactivated Comments 04/14/2023 12:27 PM 04/14/2023 5:32 PM Question Answer Comments Code Status Discussion: Discussed Care Teams Continuous Crusher Operator Relationship Specialty Start Date End Date Vane Black PA [address] [place] [address] PCP - General Physician Applied Psychology Professor 02/15/23 Carson Cardona MD [address] [facility] N [facility] [address] [place] [address] Rheumatology 03/20/24 Nazia Yoon [address] [place] [address] Mental Health Enginehouse Brakeman Care Guide 11/08/24
--- OUTSIDE RECORDS SUMMARY | 2024-12-17 15:58 | XMS_ITS | Encounter Summary ---
Author Organization [place] Address [address] [place] [address] Care Team Providers Care Plan Manager Name Role Phone Lucy Valverde MD Primary Care Provider Marilou Quigley MD Primary Care Provider Lola Laurent PA-C Unavailable [phone] Lucy Valverde MD Unavailable [phone] Sukhwinder Gerard MD Unavailable [phone] Sukhwinder Gerard MD Unavailable [phone] Vane Hua APRN NURSE ASSISTANT Unavailable Unavai Lucy Gonzales MD Unavailable uLcy Valverde MD Unavailable Vane Hua APRN NURSE ASSISTANT Unavailable LauravaVane Lawson Primary Care Provider [phone] Jese Simmons DO Unavailable [phone] Vasquez Abdullahi MD Unavailable [phone] Rocky Henley MD Unavailable + [phone] Encounter Details Date Type Department Care Team (Late st Contact Info) Description 10/04/2007 [facility] [address] [place], [place] [address] Lucy Valverde MD [address] [facility] [place], [place] [address] Social History Tobacco Use Types Packs/Day Years Used Date Smoking Tobacco: Never Assessed Comments Unknown Sex and Gender Information Value Date Recorded Sex Assigned at Not on file 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 [place] [phone] Rocky Henley MD [address] [place] [phone] documented as of this encounter Visit Diagnoses Not on filedocumented in this encounter Additional Health Concerns Infection Onset Date Last Indicated Resolved Time Rule Out COVID-19 02/27/2020 02/27/2020 02/28/2020 2:25 PM CDT documented as of this encounter Care Teams Plan Manager Relationship Specialty Start Date End Date Lucy Valverde MD [address] [facility] [address] PCP - General 08/23/07 04/28/17 Marilou Quigley MD [facility] [address] [place] [address] PCP - General 04/29/17 05/11/23 Vane Black PA [facility] [place] [address] PCP - General Family Practice 05/12/23 Lola Laurent PA-C [address] [facility] [place] [place] [id number] Assigned PCP 09/23/19 11/18/19 Lucy Valverde MD [address] [facility] [address] [id number] Assigned PCP 11/19/19 11/16/20 Sukhwinder Gerard MD [address] [place] [address] [id number] Gastroenterology 03/08/20 Sukhwinder Gerard MD [facility] [address] [address] [place], [place] [id number] Assigned Gastroenterology Provider 06/07/20 09/06/21 Vane Hua APRN NURSE ASSISTANT Assigned PCP 11/17/20 02/27/21 Lucy Valverde MD [address] [facility] [place] [place] [address] Assigned PCP 02/28/21 07/31/22 Lucy Valverde MD [address] [facility] [place] [place] [address] Assigned PCP 10/10/22 11/13/22 Vane Hua APRN NURSE ASSISTANT Assigned PCP 11/14/22 02/19/23 Jese Simmons DO [address] [place] [address] Resident Neurology 05/29/24 Vasquez Abdullahi MD [facility] [address] [place] [address] Emergency Medicine 05/29/24 Rocky Henley MD [address] [place] [address] Assigned Heart and Vascular Provider 12/06/24 documented as of this encounter
--- OUTSIDE RECORDS SUMMARY | 2024-12-17 15:58 | XMS_ITS | Encounter Summary ---
Author Organization [place] Address [facility] 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 [place] [phone] Rocky Henley MD [address] [place] [address] documented as of this encounter Visit Diagnoses Not on filedocumented in this encounter Additional Health Concerns Assessment Noted Time PHQ-9 Depression Total Score: 26 020 3:00 PM CDT documented as of this encounter Care Teams Marine Consultant Relationship Specialty Start Date End Date Vane Black PA [address] [place] [address] PCP - General Family Practice 05/12/23 Sukhwinder Gerard MD [address] [place] [address] 325065 Gastroenterology 03/08/20 Jese Simmons DO [address] [place] [address] Resident Neurology 05/29/24 Vasquez Abdullahi MD [facility] [address] [place] [address] Emergency Medicine 05/29/24 documented as of this encounter
--- OUTSIDE RECORDS SUMMARY | 2024-12-17 15:58 | XMS_ITS | Referral Summary ---
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
--- OUTSIDE RECORDS SUMMARY | 2024-12-17 15:58 | XMS_ITS | Encounter Summary ---
Author Organization [place] Address [address] [place] [address] Care Team Providers Care Fabricator Assembler Metal Products Name Role Phone Marilou Quigley MD Primary Care Provider [phone] Lola Laurent-C Unavailable [phone] Lucy Valverde MD Unavailable Sukhwinder Gerard MD Unavailable [phone] Sukhwinder Gerard MD Unavailable [phone] Vane Hua APRN MATERIAL RECLAIMER Unavailable Unavai Lucy Gonzales MD Unavailable [phone] Lucy Valverde MD Unavailable [phone] Vane Hua APRN MATERIAL RECLAIMER Unavailable Unavai Vane Arroyo Primary Care Provider [phone] Jese Simmons DO Unavailable [phone] Vasquez Abdullahi MD Unavailable [phone] Reason for Visit * Reason Onset Date Comments Mental Health Problem 04/29/2017 Encounter Details Date Type Department Care Team ([facility] Contact Info) Description 04/29/2017 Telephone [facility] [address] [place] [address] Generic, Behavioral Intake, Mental Health [...] on file 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 No / Unsure 05/12/2023 2:30 PM CDT documented as of this encounter Miscellaneous Notes * Telephone Encounter - Scott Saxena - 04/29/2017 5:53 PM CDT S: [facility] ED called to place a 17 yr old female for inpatient mental health treatment. B: Pt was BIB parents to the [facility] ED due to suicidal ideation with a [...] Description 01/17/2025 1:45 PM CDT Office Visit [address] 3[address] [place] [address] Rocky Henley MD [address] [place] [address] Ke Contreras MD [address] [place] [address] 01/25/2025 2:10 PM CDT Office Visit [facility] [place] [address] [place] [phone] Rocky Henley MD [address] [place] [address] documented as of this encounter Visit Diagnoses Not on filedocumented in this encounter Additional Health Concerns Infection Onset Date Last Indicated Resolved Time Rule Out COVID-19 02/27/2020 02/27/2020 02/28/2020 2:25 PM CDT documented as of this encounter Care Teams Fabricator Assembler Metal Products Relationship Specialty Start Date End Date Marilou Quigley MD [facility] [address] [place] [address] PCP - General 04/29/17 05/11/23 Vane Black PA [address] [place] [address] PCP - General Family Practice 05/12/23 Lola Laurent PA-C [address] [place], [place] [address] Assigned PCP 09/23/19 11/18/19 Lucy Valverde MD [address] [place], [place] [address] Assigned PCP 11/19/19 11/16/20 Sukhwinder Gerard MD [address] [place] [address] [address] [place], [place] [address] Gastroenterology 03/08/20 Sukhwinder Gerard MD [facility] [address] [address] [place] [address] Assigned Gastroenterology Provider 06/07/20 09/06/21 Vane Hua APRN MATERIAL RECLAIMER Assigned PCP 11/17/20 02/27/21 Lucy Valverde MD [address] [place] [address] Assigned PCP 02/28/21 07/31/22 Lucy Valverde MD [address] [place] [address] Assigned PCP 10/10/22 11/13/22 Vane Hua APRN MATERIAL RECLAIMER Assigned PCP 11/14/22 02/19/23 Jese Simmons DO [address] [place] [address] Resident Neurology 05/29/24 Vasquez Abdullahi MD [facility] [address] [place] [address] Emergency Medicine 05/29/24 documented as of this encounter
--- OUTSIDE RECORDS SUMMARY | 2024-12-17 15:58 | XMS_ITS | Clinical Summary ---
Author Organization [facility] Address [address] [address] Care Team Providers Care Certified Pediatric Nurse Practitioner Name Role Phone Clinician, Not Found MD Primary Care Provider Un available Source Comments You are receiving this document as you are listed as the primary care provider,follow-up provider, or the patient has been referred to you for consultation.This is in compliance with the Medicare and[facility] EHR Incentive Program,which states Providers who transition their patient to another setting of careor provider of care or refers their patient to another provider of care shouldprovide summary care record for each transition of care or referral. [employer] Allergies Active Allergy Reactions Criticality Noted Date [...] CDT - 10/24/2024 6:29 PM CDT Emergency [facility] [place] [place] [address] Migdalia Block MD Palpitations; Orthostatic lightheadedness Discharge [...] <3 <=14 ng/L 10/24/2024 5:28 PM CDT [facility] Comment:See narrative for ap proximate translation of troponin results between previous and new (high sensitivity) assays. Criteria met a timed 2h reflex order has been created. Blood Venipuncture / Unknown 10/24/2024 4:40 PM CDT 10/24/2024 4:44 PM CDT Narrative [facility] - 10/24/2024 5:28 PM CDT Approximate translation examples of troponin results between previous and new (high sensitivity) assays. Troponin hs-troponin i 0.01 ng/mL 10 ng/L 450.00 ng/mL 450,000 ng/L us Scott Cisse MD LAB_1 Final Result [facility] [address] * (ABNORMAL) Complete Blood Count-W/Diff (10/24/2024 4:40 PM CDT) WBC 11.1(H) 3.5 - 10.5 x10(9)/L 10/24/2024 4:48 PM CDT [facility] RBC 4.51 3.90 - 5.03 x10(12)/L 10/24/2024 4:48 PM CDT [facility] Hemoglobin 14.2 12.0 - 15.5 g/dL 10/24/2024 4:48 PM CDT [facility] HCT 42.3 34.9 - 44.5 % 10/24/2024 4:48 PM CDT [facility] MCV 93.8 80.0 - 100.0 fL 10/24/2024 4:48 PM CDT [facility] MCH 31.5 27.6 - 33.3 pg 10/24/2024 4:48 PM CDT [facility] MCHC 33.6 31.5 - 35.2 g/dL 10/24/2024 4:48 PM CDT [facility] RDW 12.9 11.9 - 15.5 % 10/24/2024 4:48 PM CDT [facility] Platelets 317 150 - 450 x10(9)/L 10/24/2024 4:48 PM CDT [facility] Automated NRBC 0 <=0 /100 WBC 10/24/2024 4:48 PM CDT [facility] Neutrophil Absolute 5.2 1.7 - 7.0 10(9)/L 10/24/2024 4:48 PM CDT [facility] Lymphocyte Absolute 4.4 1.0 - 4.8 10(9)/L 10/24/2024 4:48 PM CDT [facility] Monocyte Absolute 0.7 0.2 - 0.9 10(9)/L 10/24/2024 4:48 PM CDT [facility] Eosinophil Absolute 0.7(H) 0.0 - 0.5 10(9)/L 10/24/2024 4:48 PM CDT [facility] Basophil Absolute 0.1 0.0 - 0.3 10(9)/L 10/24/2024 4:48 PM CDT [facility] Immature Granulocyte % 0.3 0.0 - 0.5 % 10/24/2024 4:48 PM CDT [facility] Blood Venipuncture / Unknown 10/24/2024 4:40 PM CDT 10/24/2024 4:44 PM CDT us Scott Cisse MD LAB_1 Final Result Performing Organization Address City/[facility]/ZIP Co de Phone Number [facility] [address] [place] [address] * TSH (10/24/2024 4:40 PM CDT) Pathologist [facility] TSH, Sensitive 2.14 0.30 - 4.50 uIU/mL 10/24/2024 5:28 PM CDT [facility] Blood Venipuncture / Unknown 10/24/2024 4:40 PM CDT 10/24/2024 4:44 PM CDT us Migdalia Block MD LAB_1 Final Resu lt Performing Organization Address City/[facility]/ZIP Co de Phone Number [facility] [address] * (ABNORMAL) Basic Metabolic Panel (10/24/2024 4:40 PM CDT) Pathologist [facility] Sodium 139 136 - 145 mmol/L 10/24/2024 5:08 PM CDT [facility] Potassium 3.9 3.5 - 5.1 mmol/L 10/24/2024 5:08 PM CDT [facility] Chloride 110(H) 98 - 109 mmol/L 10/24/2024 5:08 PM CDT [facility] CO2 23 20 - 29 mmol/L 10/24/2024 5:08 PM CDT [facility] Anion Gap 6 6 - 16 mmol/L 10/24/2024 5:08 PM CDT [facility] Calcium 9.2 8.4 - 10.4 mg/dL 10/24/2024 5:08 PM CDT [facility] BUN 14 7 - 26 mg/dL 10/24/2024 5:08 PM CDT [facility] Creatinine 0.82 0.55 - 1.02 mg/dL 10/24/2024 5:08 PM CDT [facility] Glucose 88 70 - 100 mg/dL 10/24/2024 5:08 PM CDT [facility] Comment:The given reference range is for the fasting state. Non-fasting reference range for glucose is 70 - 180 mg/dL. GFR, Estimated >60 >60 mL/min/1.7 3m2 10/24/2024 5:08 PM CDT [facility] Blood Venipuncture / Unknown 10/24/2024 4:40 PM CDT 10/24/2024 4:44 PM CDT us Scott Cisse MD LAB_1 Final Result Performing Organization Address [facility] Co de Phone Number [facility] [address] * Magnesium (10/24/2024 4:40 PM CDT) Magnesium 2.1 1.6 - 2.6 mg/dL 10/24/2024 5:08 PM CDT [facility] Blood Venipuncture / Unknown 10/24/2024 4:40 PM CDT 10/24/2024 4:44 PM CDT us Migdalia Block MD LAB_1 Final Resu lt Performing Organization Address City/[facility]/ZIP Co de Phone Number [facility] [address] [place], [place] [address] * ECG 12 Lead (10/24/2024 3:53 PM CDT) Ventricular Rate 67 BPM MUSE GHP Atrial Rate 67 BPM MUSE GHP P-R Interval 150 ms MUSE GHP QRS Duration 92 ms MUSE GHP QT 392 ms MUSE GHP QTC 414 ms MUSE GHP P [place] 24 degrees MUSE GHP R [place] -7 degrees MUSE GHP T [place] 9 degrees MUSE GHP 10/24/2024 3:53 PM [...] PN ECG ORDERABLES Final Resul t MUSE [facility] [address] [place] [address] from Last 3 Months Insurance [facility] Care Teams Certified Pediatric Nurse Practitioner Relationship Specialty Start Date End Date Clinician, Not Found[facility] [address] P[facility] - General 10/24/24
--- OUTSIDE RECORDS SUMMARY | 2024-12-17 15:58 | XMS_ITS | Encounter Summary ---
Author Organization [facility] Address [address] [place] [address]. 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 [place] [phone] Rocky Henley MD [address] [place] [id number] documented as of this encounter Visit Diagnoses Not on filedocumented in this encounter Additional Health Concerns Assessment Noted Time PHQ-9 Depression Total Score: 26 020 3:00 PM CDT documented as of this encounter Care Teams Burlapper Relationship Specialty Start Date End Date Vane Black PA [address] [place] [address] PCP - General Family Practice 05/12/23 Sukhwinder Gerard MD [address] [place] [address] [id number] Gastroenterology 03/08/20 Jese Simmons DO [address] [place] [address] [phone] Resident Neurology 05/29/24 Vasquez Abdullahi MD [facility] [address] [facility] [place] [address] Emergency Medicine 05/29/24 Rocky Henley MD [address] [place] [address] Assigned Heart and Vascular Provider 12/06/24 documented as of this encounter
--- OUTSIDE RECORDS SUMMARY | 2024-12-17 15:58 | XMS_ITS | Clinical Summary ---
Author Organization 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
--- OUTSIDE RECORDS SUMMARY | 2024-12-17 15:58 | XMS_ITS | Encounter Summary ---
Author Organization [place] Address [facility]ly [facility]0 [facility] 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 [place] [phone] Rocky Henley MD [address] [place] [id number] documented as of this encounter Visit Diagnoses Not on filedocumented in this encounter Additional Health Concerns Assessment Noted Time PHQ-9 Depression Total Score: 26 020 3:00 PM CDT documented as of this encounter Care Teams Banking Manager Relationship Specialty Start Date End Date Vane Black PA [address] [place] [address] PCP - General Family Practice 05/12/23 Sukhwinder Gerard MD [address] [place] [address] 074375 Gastroenterology 03/08/20 Jese Simmons DO [address] [place] [address] Resident Neurology 05/29/24 Vasquez Abdullahi MD [facility] [address] [address] Emergency Medicine 05/29/24 documented as of this encounter
--- OUTSIDE RECORDS SUMMARY | 2024-12-17 15:58 | XMS_ITS | Encounter Summary ---
Author Organization [place] Address [facility] [place] [address] Care Team Providers Care Scanning Tech Name Role Phone Sukhwinder Gerard MD Unavailable [phone] Vane Black Primary Care Provider [phone] Jese Simmons DO Unavailable [phone] Vasquez Abdullahi MD Unavailable [phone] Reason for Visit * Diagnostic Imaging Ultrasound (Routine) - Pending Review Specialty Diagnoses / Procedures Referred By Contac t Referred To Contact Radiology. Diagnoses Pain of left lower extremity Procedures US Venous Competency Bilateral Rocky Henley MD [address] [place] [address] Phone: tel: fax: Referral ID Status Reason Start Date Expiration Date V isits Requested Visits Authorized [id number] Pending Review 11/23/2024 11/23/2025 1 1 Encounter Details Date Type Department Care Team (Late st Contact Info) Description 12/04/2024 11:00 AM CDT Ancillary Procedure [facility]in [facility] [place] [phone] [facility] [address] [place] [phone] Rocky Henley MD [address] [place] [id number] Pain of left lower extremity Social History [...] on file 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 [place] [phone] Rocky Henley MD [address] [place] 949015 documented as of this encounter Procedures Procedure [...] when greater than 0.5 sec flow reversal. Care Transport Nurse vein reflux reported as greater than 0.5 [...] Perforators: There is no evidence of incompetent tree fruit and nut farming supervisor veins at any level. Left Leg Deep [...] Perforators: There is no evidence of incompetent tree fruit and nut farming supervisor veins at any level. Impression: Right Deep [...] flow (milliseconds) Category Deep Veins Superficial Veins Care Transport Nurse veins Competent < 1.0 s < 0.5 [...] documented as of this encounter Care Teams Scanning Tech Relationship Specialty Start Date End Date Vane Black PA [address] [place] [address] PCP - General Family Practice 05/12/23 Sukhwinder Gerard MD [address] [facility] 36 [place], [place] [address] Gastroenterology 03/08/20 Jese Simmons DO [address] [place], [place] 9[address] Resident Neurology 05/29/24 Vasquez Abdullahi MD [facility] [address] [facility] [address] [place] [address] Emergency Medicine 05/29/24 documented as of this encounter
--- OUTSIDE RECORDS SUMMARY | 2024-12-17 15:59 | XMS_ITS | Encounter Summary ---
Author Organization [place] Address [facility] [place] [address] Care Team Providers Care Automatic Quilling Machine Operator Name Role Phone Sukhwinder Gerard MD Unavailable [phone] Vane Black Primary Care Provider [phone] Jese Simmons DO Unavailable [phone] Vasquez Abdullahi MD Unavailable [phone] Reason for Referral * Consultation (Routine: Next available opening) - Pending Review Specialty Diagnoses / Procedures Referred By Heied armando Referred To Contact Diagnoses Thoracic outlet syndrome of right thoracic outlet Pain of left lower extremity Rocky Henley MD [address] [place] [address] Phone: tel: fax: Referral ID Status Reason Start Date Expiration Date V isits Requested Visits Authorized [id number] Pending Review 11/28/2024 11/28/2025 1 1 Question [...] (Late st Contact Info) Description 11/28/2024 Telephone [facility] [place] [address] [place] [phone] Rocky Henley MD [address] [place] [address] Appointment Social History Tobacco Use Types Packs/Day [...] on file 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 Routing to logging superintendent- patient is scheduled for EMG 01/17, patient [...] Daryn for scalene block Kamryn MANLEY, PRIYANK [facility] Office: [phone] documented in this encounter Plan of Treatment Upcoming Encounters Date Type Department Care Team (Late st Contact Info) Description 01/17/2025 1:45 PM CDT Office Visit [facility] EMG [facility] [address] [place] [phone] Rocky Henley MD [address] [place] [address] Ke Contreras MD [address] [place] [address] 01/25/2025 2:10 PM CDT Office Visit [facility] [place] [address] [place] [phone] Rocky Henley MD [address] [place] [address] Scheduled Referrals Name Type Priority Associated Diagnoses [...] documented as of this encounter Care Teams Automatic Quilling Machine Operator Relationship Specialty Start Date End Date Vane Black PA [address] [place] [address] PCP - General Family Practice 05/12/23 Sukhwinder Gerard MD [address] [place] [address] Gastroenterology 03/08/20 Jese Simmons DO [address] [place] [address] Resident Neurology 05/29/24 Vasquez Abdullahi MD [facility] [address] [place] [address] Emergency Medicine 05/29/24 documented as of this encounter
--- OUTSIDE RECORDS SUMMARY | 2024-12-17 15:59 | XMS_ITS | Encounter Summary ---
Author Organization [place] Address [facility] [place] [address] Care Team Providers Care Sword Swallower Name Role Phone Sukhwinder Gerard MD Unavailable [phone] Vane Black Primary Care Provider [phone] Jese Simmons DO Unavailable [phone] Vasquez Abdullahi MD Unavailable [phone] Reason for Visit * Reason Onset Date Comments Referral 11/09/2024 Encounter Details Date Type Department Care Team (Late st Contact Info) Description 11/09/2024 Telephone [facility] [place] [address] [address] [place] [phone] Nurse, [facility] Referral Social History Tobacco Use Types Packs/Day [...] on file 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 Henley Please schedule this at next available Appt note: Ref by Mimi Keita PA-C ([facility]) for thoracic outlet syndrome of right thoracic outlet; chest xray and TOS US done at [facility]; notes in Care Everywhere (updated). SINDHU Andersen, RN, CV-BC, CNOR [facility] [place] documented in this encounter Plan of Treatment Upcoming Encounters Date Type Department Care Team (Late st Contact Info) Description 01/17/2025 1:45 PM CDT Office Visit [address] [place] [address] Rocky Henley MD [address] [place] [address] Ke Contreras MD [address] [place] [address] 01/25/2025 2:10 PM CDT Office Visit [facility] [place] [address] [place] [phone] Rocky Henley MD [address] [place] [address] documented as of this encounter Visit Diagnoses Not on filedocumented in this encounter Additional Health Concerns Assessment Noted Time PHQ-9 Depression Total Score: 26 020 3:00 PM CDT documented as of this encounter Care Teams Sword Swallower Relationship Specialty Start Date End Date Vane Black PA [address] [place] [address] PCP - General Family Practice 05/12/23 Sukhwinder Gerard MD [address] [place] [address]115 Gastroenterology 03/08/20 Jese Simmons DO [address] [place] [address] [phone] Resident Neurology 05/29/24 Vasquez Abdullahi MD [facility] [address] [place] [address] Emergency Medicine 05/29/24 documented as of this encounter
--- OUTSIDE RECORDS SUMMARY | 2024-12-17 15:59 | XMS_ITS | Encounter Summary ---
Author Organization [place] Address [address] [place] [address]. [place] [address] Care Team Providers Care Airfield Services Officer Name Role Phone Sukhwinder Gerard MD Unavailable [phone] Vane Black Primary Care Provider + [phone] Jese Simmons DO Unavailable [phone] Vasquez Abdullahi MD Unavailable [phone] Reason for Visit * Reason Comments Leg Pain Encounter Details Date Type Department Care Team (Late st Contact Info) Description 11/11/2024 6:47 PM CDT - 11/11/2024 9:38 PM CDT Emergency [facility] Emergency Dept [address] [place] [address] [phone] Obinna Clifford MD [facility] [address] [place], [place] [address] Pain of right lower leg; Right leg [...] on file 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 fluticasone (FLONASE) 50 MCG/ACT nasal spray [place] 1 spray into both nostrils daily. 16 [...] hours. Max 3 tablets/24 hours. 11/27/2019 rizatriptan (MAXALT-REGIONAL EHS MANAGER) 5 MG ODT DISSOLVE 1 TABLET ON [...] leg pain. Patient reports being seen at [facility] for left leg swelling and pain [...] the ER visit note from 11/07 at [facility] for shortness of breath and left lower [...] BNP Inpatient 83 LITHIUM LEVEL - Normal Ramirez-Perez 0.72 CBC WITH PLATELETS AND DIFFERENTIAL WBC [...] Documentation None Medical Decision Making / Diagnosis [facility] Diagnoses: None MIPS None [facility] Lary Angulo is a 24 year [...] Description 01/17/2025 1:45 PM CDT Office Visit [facility] [address] [place] [phone] Rocky Henley MD [address] [place] [address] Ke Contreras MD [address] [place] [address] 01/25/2025 2:10 PM CDT Office Visit [facility] [place] [address] [place] [phone] Rocky Henley MD [address] [place] [phone] documented as of this encounter Procedures Procedure [...] US LOWER EXTREMITY VENOUS DUPLEX RIGHT LOCATION: [facility] DATE: 11/11/2024 INDICATION: R leg [...] US LOWER EXTREMITY VENOUS DUPLEX RIGHT LOCATION: [facility] DATE: 11/11/2024 INDICATION: R leg [...] Top Tube (11/11/2024 7:26 PM CDT) Pathologist [facility] Hold Specimen JI 11/11/2024 8:31 PM CDT [facility] LABORATORY Blood BLOOD SPECIMEN / Unknown Venipuncture / Unknown 11/11/2024 7:26 PM CDT 11/11/2024 7:30 PM CDT Obinna Clifford MD LAB - BLOOD ORDERABLES Fin al Result RH LABORATORY [facility] Acute [facility] Lab [address] [facility] Lab (1st floor, no room number) [place] [address] * CBC with platelets and differential (11/11/2024 7:24 PM CDT) Pathologist [facility] WBC Count 11.0 4.0 - 11.0 10e3/uL [...] BLOOD ORDERABLES Fin al Result RH LABORATORY [facility] Lab [address] Lab (1st floor, no room number) [place] [address], [facility] * Ramirez-Perez level (11/11/2024 7:24 PM CDT) Ramirez-Perez 0.72 0.60 - 1.20 mmol/L 11/11/2024 8:55 PM CDT LABORATORY Comment: Therapeutic: 0.60 - 1.20 mmol/L; Toxic: >2.00 mmol/L Blood BLOOD SPECIMEN / Unknown Venipuncture / Unknown 11/11/2024 7:24 PM CDT 11/11/2024 7:30 PM CDT Obinna Clifford MD LAB - BLOOD ORDERABLES Fin al Result [facility] Care Lab [address] [facility] Lab (1st floor, no room number) [place] [phone] * BNP (11/11/2024 7:24 PM CDT) [...] LAB - BLOOD ORDERABLES Fin al Result [facility] Care Lab [address] Lab (1st floor, no room number) [place] [address], [facility] * Magnesium (11/11/2024 7:24 PM CDT) [facility] Magnesium 2.0 1.7 - 2.3 mg/dL 11/11/2024 8:00 PM CDT LABORATORY Blood BLOOD SPECIMEN / Unknown Venipuncture / Unknown 11/11/2024 7:24 PM CDT 11/11/2024 7:30 PM CDT Obinna Clifford MD LAB - BLOOD ORDERABLES Fin al Result Performing Organization Address City/[facility]/ZIP Co de Phone Number [facility] Lab [address] Lab (1st floor, no room number) [place] [phone] * (ABNORMAL) CK total (11/11/2024 7:24 PM CDT) [facility] CK 236(H) 26 - 192 U/L 11/11/2024 8:00 PM CDT LABORATORY Blood BLOOD SPECIMEN / Unknown Venipuncture / Unknown 11/11/2024 7:24 PM CDT 11/11/2024 7:30 PM CDT Obinna Clifford MD LAB - BLOOD ORDERABLES Fin al Result Performing Organization Address [facility] de Phone Number [facility] Lab [address] Lab (1st floor, no room number) [place] [phone] * HCG qualitative Blood (11/11/2024 7:24 PM CDT) [facility] hCG Serum Qualitative Negative Negative DEEPIKA 11/11/2024 8:03 PM CDT LABORATORY Comment:This test is for scr eening purposes. Results should be interpreted along with the clinical picture. Confirmation testing is available if warranted by ordering [id number], HCG Quantitative . Blood BLOOD SPECIMEN / Unknown Venipuncture / Unknown 11/11/2024 7:24 PM CDT 11/11/2024 7:30 PM CDT Obinna Clifford MD LAB - BLOOD ORDERABLES Fin al Result LABORATORY [facility] [address] Lab (1st floor, no room number) [place] [address] * Hepatic function panel (11/11/2024 7:24 [...] - BLOOD ORDERABLES Fin al Result LABORATORY [facility] Care Lab [address] Lab (1st floor, no room number) [place] [address] * (ABNORMAL) Basic metabolic panel (11/11/2024 [...] - BLOOD ORDERABLES Fin al Result LABORATORY [facility] [address] [facility] Lab (1st floor, no room number) [place] [address] documented in this encounter Visit Diagnoses [...] documented as of this encounter Care Teams Airfield Services Officer Relationship Specialty Start Date End Date Vane Black PA [address] [place] [address] PCP - General Family Practice 05/12/23 Sukhwinder Gerard MD [address] [address] Gastroenterology 03/08/20 Jese Simmons DO [address] [place] [address] 370155 Resident Neurology 05/29/24 Vasquez Abdullahi MD [facility] [address] [place] [address] 830845 Emergency Medicine 05/29/24 documented as of this encounter
--- OUTSIDE RECORDS SUMMARY | 2024-12-17 15:59 | XMS_ITS | Encounter Summary ---
Author Organization [facility] Address [address] [place] [address]. 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 [place] [phone] Rocky Henley MD [address] [place] [address] documented as of this encounter Visit Diagnoses Not on filedocumented in this encounter Additional Health Concerns Assessment Noted Time PHQ-9 Depression Total Score: 26 020 3:00 PM CDT documented as of this encounter Care Teams Delta System Freight Car Cleaner Relationship Specialty Start Date End Date Vane Black PA [address] [place] [address] PCP - General Family Practice 05/12/23 Sukhwinder Gerard MD [address] [place] [id number] Gastroenterology 03/08/20 Jese Simmons DO [address] [place] [address] Resident Neurology 05/29/24 Vasquez Abdullahi MD [facility] [address] [place] [address] Emergency Medicine 05/29/24 documented as of this encounter
--- OUTSIDE RECORDS SUMMARY | 2024-12-17 15:59 | XMS_ITS | Clinical Summary ---
Author Organization [facility] Address [address] [place] [address] Care Team Providers Care Dining Car Waiter/Waitress Name Role Phone Sukhwinder Gerard MD Unavailable [phone] Vane Black Primary Care Provider [phone] Jese Simmons DO Unavailable [phone] Vasquez Abdullahi MD Unavailable [phone] Rocky Henley MD Unavailable [phone] Allergies Active Allergy Reactions Criticality Noted Date Comments Ben Bolt Oil 04/27/2018 Other reaction(s): GI Upset Salt Point Oil 04/27/2018 Other reaction(s): GI Upset Crab [...] Active fluticasone (FLONASE) 50 MCG/ACT nasal spray [place] 1 spray into both nostrils daily. 16 [...] Take 75 mg by mouth. Active rizatriptan (MAXALT-SET UP MECHANIC COIL WINDING MACHINES) 5 MG ODT DISSOLVE 1 TABLET ON [...] (05/31/2024): Added automatically from request for surgery [id number] Added automatically from request for surgery [id number] Added automatically from request for surgery [id number] Anorexia nervosa, restrictin g type, in partial [...] Description 12/04/2024 11:00 AM CDT Ancillary Procedure [facility] [place] [address] [facility] [address] [place] [address] Rocky Henley MD Pain of left lower extremity 12/04/2024 Travel 11/28/2024 Telephone [facility] [place] [address] [place] [phone] Rocky Henley MD Appointment 11/23/2024 2:10 PM CDT Office Visit [facility] [place] [address] [place] [phone] Rocky Henley MD Pain of left lower extremity (Primary Dx); Thoracic outlet syndrome of right thoracic outlet 11/23/2024 Travel 11/18/2024 8:08 PM CDT - 11/18/2024 10:51 PM CDT Emergency [facility] Emergency Dept [address] [place] [address] Eron Sinha MD Nonintractable headache, unspecified chronicity pattern, unspecified headache type Discharge Disposition: Home or Self Care 11/18/2024 Travel 11/11/2024 6:47 PM CDT - 11/11/2024 9:38 PM CDT Emergency [facility] Emergency Dept [address] [place] [facility] [place] [address] Obinna Clifford MD Pain of right lower leg; Right leg swelling Discharge Disposition: Home or Self Care 11/11/2024 Travel 11/09/2024 Telephone [facility] [place] 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 [place] [phone] Rocky Henley MD [address] [place] [address] Health Maintenance Due Date Last Done Comments [...] when greater than 0.5 sec flow reversal. Bathhouse Attendant vein reflux reported as greater than 0.5 [...] Perforators: There is no evidence of incompetent spinning machine operator veins at any level. Left Leg Deep [...] Perforators: There is no evidence of incompetent spinning machine operator veins at any level. Impression: Right Deep [...] flow (milliseconds) Category Deep Veins Superficial Veins Bathhouse Attendant veins Competent < 1.0 s < 0.5 [...] CDT IMPRESSION: HEAD CTA: 1. Normal CTA [place]. NECK CTA: 1. Normal neck CTA. Narrative 11/18/2024 9:42 PM CDT EXAM: CTA HEAD NECK W CONTRAST LOCATION: [facility] DATE: 11/18/2024 INDICATION: headache, neck pain, paresthesias [...] EXAM: CTA HEAD NECK W CONTRAST LOCATION: [facility] DATE: 11/18/2024 INDICATION: headache, neck pain, paresthesias [...] Unremarkable. IMPRESSION: HEAD CTA: 1. Normal CTA [place]. NECK CTA: 1. Normal neck [...] CDT EXAM: CT HEAD W/O CONTRAST LOCATION: [facility] DATE: 11/18/2024 INDICATION: headache COMPARISON: 05/27/2024 TECHNIQUE: [...] 11/18/2024 EXAM: CT HEAD W/O CONTRAST LOCATION: [facility] DATE: 11/18/2024 INDICATION: headache COMPARISON: 05/27/2024 TECHNIQUE: [...] Tube (11/18/2024 8:36 PM CDT) Hold Specimen [facility] 11/18/2024 9:47 PM CDT LABORATORY Blood BLOOD SPECIMEN / Unknown Venipuncture / Unknown 11/18/2024 8:36 PM CDT 11/18/2024 8:45 PM CDT Eron Sinha MD LAB - BLOOD ORDERABLES Fi nal Result [facility] Lab [address] Lab (1st floor, no room number) [address] * Extra Blue Top Tube (11/18/2024 8:36 PM CDT) Only the most recent of2 resultswithin the time period is included. Hold Specimen [facility] 11/18/2024 9:47 PM CDT LABORATORY Blood BLOOD SPECIMEN / Unknown Venipuncture / Unknown 11/18/2024 8:36 PM CDT 11/18/2024 8:45 PM CDT Eron Sinha MD LAB - BLOOD ORDERABLES Fi nal Result [facility] Acute Care Lab [address] Lab (1st floor, no room number) [place] [address] [place] [address] * (ABNORMAL) CBC with platelets and differential [...] LAB - BLOOD ORDERABLES nal Result LABORATORY [facility] Acute Care Lab [address] [facility] Lab (1st floor, no room number) [place] [address] * Troponin T, High Sensitivity (11/18/2024 8:36 PM CDT) [facility] Troponin T, High Sensitivity 8 <=14 ng/L [...] - BLOOD ORDERABLES Fi nal Result LABORATORY [facility] Care Lab [address] Lab (1st floor, no room number) [place] [address], [facility] * Basic metabolic panel (BMP) (11/18/2024 8:36 PM CDT) Only the most recent of2 resultswithin the time period is included. [facility] Sodium 138 135 - 145 mmol/L 11/18/2024 [...] - BLOOD ORDERABLES Fi nal Result LABORATORY [facility] Acute Care Lab [address] Lab (1st floor, no room number) [place] [address] * US Lower Extremity Venous Duplex Right (11/11/2024 7:55 PM CDT) Anatomical Region Laterality Modality Lower Extremity Ultrasound 11/11/2024 7:55 PM CDT Impressions 11/11/2024 7:58 PM CDT IMPRESSION: 1. No deep venous thrombosis in the right lower extremity. Narrative 11/11/2024 7:58 PM CDT EXAM: US LOWER EXTREMITY VENOUS DUPLEX RIGHT LOCATION: [facility] DATE: 11/11/2024 INDICATION: R leg [...] US LOWER EXTREMITY VENOUS DUPLEX RIGHT LOCATION: [facility] DATE: 11/11/2024 INDICATION: R leg [...] LAB - BLOOD ORDERABLES Fin al Result [facility] Care Lab [address] [facility] (1st floor, no room number) [place] [address] [place] [address] * Magnesium (11/11/2024 7:24 PM CDT) Magnesium 2.0 1.7 - 2.3 mg/dL 11/11/2024 8:00 PM CDT LABORATORY Blood BLOOD SPECIMEN / Unknown Venipuncture / Unknown 11/11/2024 7:24 PM CDT 11/11/2024 7:30 PM CDT Obinna Clifford MD LAB - BLOOD ORDERABLES Fin al Result [facility] Care Lab [address] Lab (1st floor, no room number) [place] [phone] * [place] level (11/11/2024 7:24 PM CDT) [place] 0.72 0.60 - 1.20 mmol/L 11/11/2024 8:55 PM CDT LABORATORY Comment: Therapeutic: 0.60 - 1.20 mmol/L; Toxic: >2.00 mmol/L Blood BLOOD SPECIMEN / Unknown Venipuncture / Unknown 11/11/2024 7:24 PM CDT 11/11/2024 7:30 PM CDT Obinna Clifford MD LAB - BLOOD ORDERABLES Fin al Result LABORATORY [facility] Acute Care Lab [address] Lab (1st floor, no room number) [place] [address] * Hepatic function panel (11/11/2024 7:24 [...] Result LABORATORY [facility] Acute Care Lab [address] Lab (1st floor, no room number) [place] [address], [facility] * HCG qualitative Blood (11/11/2024 7:24 PM CDT) Pathologist [facility] hCG Serum Qualitative Negative Negative DEEPIKA 11/11/2024 8:03 PM CDT RH LABORATORY Comment:This test is for scr eening purposes. Results should be interpreted along with the clinical picture. Confirmation testing is available if warranted by ordering [id number], HCG Quantitative . Blood BLOOD SPECIMEN / Unknown Venipuncture / Unknown 11/11/2024 7:24 PM CDT 11/11/2024 7:30 PM CDT Obinna Clifford MD LAB - BLOOD ORDERABLES Fin al Result [facility] Care Lab [address] Lab (1st floor, no room number) [place] [address] * (ABNORMAL) CK total (11/11/2024 7:24 PM CDT) Pathologist [facility] CK 236(H) 26 - 192 U/L 11/11/2024 8:00 PM CDT LABORATORY Blood BLOOD SPECIMEN / Unknown Venipuncture / Unknown 11/11/2024 7:24 PM CDT 11/11/2024 7:30 PM CDT Obinna Clifford MD LAB - BLOOD ORDERABLES Fin al Result Performing Organization Address City/[facility]/ZIP Co de Phone Number [facility] Lab [address] Lab (1st floor, no room number) [place] [address] * TSH (02/13/2020 5:40 PM CDT) Pathologist [facility] TSH 1.53 0.40 - 4.00 mU/L 02/16/2020 8:14 AM CDT [facility] Blood specimen (specimen) 02/13/2020 5:40 PM CDT 02/15/2020 2:00 PM CDT Lab Non-Fv Credentialed Provider LAB - BLOOD ORD ERABLES Final Result Performing Organization Address City/[facility]/ZIP Co de Phone Number [facility] [address] [place] [address] * CHLAMYDIA TRACHOMATIS PCR (01/08/2020 4:10 PM CDT) Pathologist [facility] Specimen Description Vagina 01/08/2020 4:12 PM CDT [facility] Chlamydia Trachomatis PCR Negative NEG^Negat gab 01/09/2020 1:59 PM CDT [facility] Comment: Negative for C. trachomatis rRNA by progress man mediated amplification. A negative result by progress man mediated amplification does not preclude the presence of C. trachomatis infection because results are dependent on proper and adequate collection, absence of inhibitors, and sufficient rRNA to be detected. Specimen from vagina (specimen) 01/08/2020 4:10 PM CDT 01/08/2020 4:11 PM CDT us Keyana Ortiz PA-C LAB - MICRO GENERAL ORDER JOSE Final Result [facility] [address] [place] [address], [facility] [address] [place] [address] from Last 3 Months or Most Recently Relevant to Health Maintenance Insurance [facility] [employer] Advance Directives For more information, please contact: [phone] * Full Code (Latest Code Status on File) Date Activated Date Inactivated Comments 07/23/2017 10:23 PM 07/26/2017 5:52 PM * Full Code Date Activated Date Inactivated Comments 04/29/2017 10:56 PM 05/06/2017 4:51 PM Care Teams Dining Car Waiter/Waitress Relationship Specialty Start Date End Date Vane Black PA [address] [place] [address] PCP - General Family Practice 05/12/23 Sukhwinder Gerard MD [address] [facility] [address] [place], [place] [address] Gastroenterology 03/08/20 Jese Simmons DO [address] [place], [place] [address] Resident Neurology 05/29/24 Vasquez Abdullahi MD [facility] [address] [place] [address] Emergency Medicine 05/29/24 Rocky Henley MD [address] [place] [address] Assigned Heart and Vascular Provider 12/06/24
--- OUTSIDE RECORDS SUMMARY | 2024-12-17 15:59 | XMS_ITS | Encounter Summary ---
Author Organization [facility] Address [address] [place] [address] Care Team Providers Care Medical Billing Specialist Name Role Phone Sukhwinder Gerard MD Unavailable [phone] Vane Black Primary Care Provider [phone] Jese Simmons DO Unavailable [phone] Vasquez Abdullahi MD Unavailable [phone] Reason for Referral * Diagnostic Imaging Ultrasound (Routine) - Pending Review Specialty Diagnoses / Procedures Referred By Heide armando Referred To Contact Radiology. Diagnoses Pain of left lower extremity Procedures US Venous Competency Bilateral Rocky Henley MD [address] [place] [address] Phone: tel: fax: Referral ID Status Reason Start Date Expiration Date V isits Requested Visits Authorized [id number] Pending Review 11/23/2024 11/23/2025 1 1 * Consultation (Routine: Next available opening) - Pending Review Specialty Diagnoses / Procedures Referred By Heide armando Referred To Contact Pain Medicine Diagnoses Thoracic outlet syndrome of right thoracic outlet Rocky Henley MD [address] [place] [address] Phone: tel: fax: Daryn Fish Ref'l [address] [address] Phone: tel: Referral ID Status Reason Start Date Expiration Date V isits Requested Visits Authorized [id number] Pending Review 11/23/2024 11/23/2025 1 1 Question Answer Reason for Referral: Procedure Order Procedure: Other My Clinical Question Is: Please perform Rt scalene block to predict lieklihood of response to first rib resection a patietn with neurogenic TOS Patient Scheduling Instructions: [employer] will call you to coordinate care as prescribed your provider. If you don t hear from a service center representative within 2 business days, please call . Comments Please be aware that coverage of these services is subject to the terms and limitations of your health insurance plan. Call member services at your health plan with any benefit or coverage questions. [employer] will call you to coordinate care as prescribed your provider. If you don t hear from a service center representative within 2 business days, please call . * (Routine) - Pending Review Specialty Diagnoses / Procedures Referred By Heide t Referred To Contact Diagnoses Thoracic outlet syndrome of right thoracic outlet Procedures EMG Rocky Henley MD [address] [place] [address] Phone: tel: fax: [facility] [address] [address] Phone: tel: fax: Referral ID Status Reason Start Date Expiration Date V isits Requested Visits Authorized [id number] Pending Review 11/23/2024 11/23/2025 1 1 Reason for Visit * Reason Comments Consult Ref by Mimi Keita PA-C ([facility]) for thoracic outlet syndrome of right thoracic outlet; chest xray and TOS US done at [facility]; notes in Care Everywhere (updated). * Consultation (Routine: Next available opening) - Pending Review Specialty Diagnoses / Procedures Referred By Heide t Referred To Contact Cardiovascular Disease Diagnoses Thoracic outlet syndrome of right thoracic outlet [facility] [address] [address] Phone: tel: fax: Referral ID Status Reason Start Date Expiration Date V isits Requested Visits Authorized [id number] Pending Review 11/09/2024 11/09/2025 1 1 Encounter Details Date Type Department Care Team (Late st Contact Info) Description 11/23/2024 2:10 PM CDT Office Visit [facility] [place] 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 Check the below. Plan: US Venous Competency Bilateral, rtc one month; wear compression hosiery in the interim. 100 minutes total medical care on today's date.Extended time secondary to need to review outside records, explain ds state and plan to pt, write letters, and provide information to her [facility]. The longitudinal care of plan for Lary [...] daily. fluticasone (FLONASE) 50 MCG/ACT nasal spray [place] 1 spray into both nostrils daily. 16 [...] 2 hours. Max 3 tablets/24 hours. rizatriptan (MAXALT-SHOE TREER) 5 MG ODT DISSOLVE 1 TABLET ON [...] speech Passion Fruit Flavoring Agent (Non-Screening) Anaphylaxis Cotuit Oil Other reaction(s): GI Upset Walnut [place] Oil Other reaction(s): GI Upset Crab Extract [...] Resource Strain: Low Risk (06/18/2024) Received from [facility] Financial Resource Strain Difficulty of Paying Living Expenses: 3 Difficulty of Paying Living Expenses: Not on file Food Insecurity: No Food Insecurity (06/18/2024) Received from [facility] Food Insecurity Do you worry your food will run out before you are able to buy more?: 1 Transportation Needs: No Transportation Needs (06/18/2024) Received from [facility] Transportation Needs Does lack of transportation keep you from medical appointments?: 1 Does lack of transportation keep you from work, meetings or getting things that you need?: 1 Physical Activity: Not on file Stress: Not on file Social Connections: Socially Isolated (06/18/2024) Received from [facility] Social Connections Do you often feel lonely or isolated from those around you?: 4 Interpersonal Safety: Not on file Housing Stability: Medium Risk (06/18/2024) Received from [facility] Housing Stability What [...] Tavarez MA - 11/23/2024 2:10 PM CDT [facility] Patient is here for a [...] Description 01/17/2025 1:45 PM CDT Office Visit [facility]G [address] [place] [phone] Rocky Henley MD [address] [place] [phone] Ke Contreras MD [address] [place] [id number] 01/25/2025 2:10 PM CDT Office Visit [facility] [place] [address] [place] [phone] Rocky Henley MD [address] [place] [address] Scheduled Orders Name Type Priority Associated Diagnoses Orde r Schedule EMG Neurology Routine Thoracic outlet syndrome of right thoracic outlet Expected: 11/23/2024 (Approximate), Expires: 11/23/2025 Scheduled Referrals Name Type Priority Associated Diagnoses Orde r Schedule Pain Management Director Of Teenage Activities Referral Referral Routine: Next available opening Thoracic [...] when greater than 0.5 sec flow reversal. Environmental Compliance Manager vein reflux reported as greater than [...] Perforators: There is no evidence of incompetent hydraulic oil tool operator veins at any level. Left Leg [...] Perforators: There is no evidence of incompetent hydraulic oil tool operator veins at any level. Impression: Right [...] flow (milliseconds) Category Deep Veins Superficial Veins Environmental Compliance Manager veins Competent < 1.0 s < [...] documented as of this encounter Care Teams Medical Billing Specialist Relationship Specialty Start Date End Date Vane Black PA [address] [place] [address] PCP - General Family Practice 05/12/23 Sukhwinder Gerard MD [address] [place] [address] 690695 Gastroenterology 03/08/20 Jese Simmons DO [address] [place] [address] [phone] Resident Neurology 05/29/24 Vasquez Abdullahi MD [facility] [address] [facility] [address] [place] [address] Emergency Medicine 05/29/24 documented as of this encounter
--- OUTSIDE RECORDS SUMMARY | 2024-12-17 15:59 | XMS_ITS | Encounter Summary ---
Author Organization [place] [place] Address [facility] 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 [place] [phone] Rocky Henley MD [address] [place] [id number] documented as of this encounter Visit Diagnoses Not on filedocumented in this encounter Additional Health Concerns Assessment Noted Time PHQ-9 Depression Total Score: 26 020 3:00 PM CDT documented as of this encounter Care Teams Bartender Server Relationship Specialty Start Date End Date Vane Black PA [address] [place] [address] PCP - General Family Practice 05/12/23 Sukhwinder Gerard MD [address] [place] [address] 859715 Gastroenterology 03/08/20 Jese Simmons DO [address] [place] [address] Resident Neurology 05/29/24 Vasquez Abdullahi MD [facility] [address] [place] [address] Emergency Medicine 05/29/24 documented as of this encounter
--- OUTSIDE RECORDS SUMMARY | 2024-12-17 15:59 | XMS_ITS | Encounter Summary ---
Author Organization [facility] Address [address] [place] [address]. [place] [address] Care Team Providers Care Die Repairer Stamping Name Role Phone Sukhwinder Gerard MD Unavailable [phone] Vane Black Primary Care Provider [phone] Jese Simmons DO Unavailable [phone] Vasquez Abdullahi MD Unavailable [phone] Reason for Referral * Consultation (Routine: Next available opening) - Pending Review Specialty Diagnoses / Procedures Referred By Heide armando Referred To Contact Cardiovascular Disease Diagnoses Thoracic outlet syndrome of right thoracic outlet [facility] [address] [address] Phone: tel: fax: Referral ID Status Reason Start Date Expiration Date V isits Requested Visits Authorized [id number] Pending Review 11/09/2024 11/09/2025 1 1 Scheduling Instructions Referred to : Dr Eulalio Pascal at [facility] Question Answer Preferred Location: Other (external) - use comments Non-internal location selection reason: Patient Preference/Choice Scheduling Instructions: Please call to schedule your appointment Class External referral [5] Reason for Referral: Thoracic outlet syndrome of right thoracic outlet, of the right shoulder Comments Referred by : Mimi Keita PA-C [facility] Please call to schedule your appointment Encounter Details Date Type Department Care Team (Latest Contact Info) Description 11/09/2024 Transcribe Orders [facility] [address] [phone] Mimi Keita PA [facility] [place] [address] Thoracic outlet syndrome of right thoracic outlet [...] on file 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 [place] [phone] Rocky Henley MD [address] [place] [id number] Scheduled Referrals Name Type Priority Associated Diagnoses [...] documented as of this encounter Care Teams Die Repairer Stamping Relationship Specialty Start Date End Date Vane Black PA [address] [place] [address] PCP - General Family Practice 05/12/23 Sukhwinder Gerard MD [address] [place] [address] 334065 Gastroenterology 03/08/20 Jese Simmons DO [address] [place] [address] 625755 Resident Neurology 05/29/24 Vasquez Abdullahi MD [facility] [address] [place] [address] Emergency Medicine 05/29/24 documented as of this encounter
--- OUTSIDE RECORDS SUMMARY | 2024-12-17 15:59 | XMS_ITS | Encounter Summary ---
Author Organization [facility] Address [address] [place] [address] Care Team Providers Care Processes Chemical Design Engineer Name Role Phone Sukhwinder Gerard MD Unavailable [phone] Vane Black Primary Care Provider [phone] Jese Simmons DO Unavailable [phone] Vasquez Abdullahi MD Unavailable [phone] Reason for Visit * Reason Comments Headache Arm Pain Numbness Encounter Details Date Type Department Care Team (Late st Contact Info) Description 11/18/2024 8:08 PM CDT - 11/18/2024 10:51 PM CDT Emergency [facility] Emergency Dept [address] [place] [address] [phone] Eron Sinha MD [facility] [address] [place], [place] [phone] Nonintractable headache, unspecified chronicity pattern, unspecified headache [...] on file 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 * Headache (Zambian) documented in this encounter Medications at Time [...] daily. fluticasone (FLONASE) 50 MCG/ACT nasal spray [place] 1 spray into both nostrils daily. 16 [...] hours. Max 3 tablets/24 hours. 11/27/2019 rizatriptan (MAXALT-MACHINE SHORTHAND TEACHER) 5 MG ODT DISSOLVE 1 TABLET ON [...] Allergies: Golimumab Passion Fruit Flavoring Agent (Non-Screening) Kaplan Oil [place] Oil Crab Extract Fish Oil Trazodone Medications: [...] capsule rizatriptan (MAXALT) 10 MG tablet rizatriptan (MAXALT-MACHINE SHORTHAND TEACHER) 5 MG ODT Suvorexant (BELSOMRA) 10 MG [...] Narrative EXAM: CT HEAD W/O CONTRAST LOCATION: [facility] DATE: 11/18/2024 INDICATION: headache COMPARISON: 05/27/2024 [...] EXAM: CTA HEAD NECK W CONTRAST LOCATION: [facility] DATE: 11/18/2024 INDICATION: headache, neck pain, [...] Impression IMPRESSION: HEAD CTA: 1. Normal CTA [place]. NECK CTA: 1. Normal neck [...] 88 70 - 99 mg/dL Extra Tube ([place]ripp Draw) Status: None Narrative The following orders were created for panel order Extra Tube ([place]ripp Draw). Procedure Abnormality Status --------- ------ Extra Blue Top Tube[[id number]] Final result Extra Red Top Tube[[id number]] Final result Please view results for these [...] Status --------- ------ CBC with platelets and ...[[id number]] Abnormal Final result Please view results for [...] Description 01/17/2025 1:45 PM CDT Office Visit [address] 3rd [place] [address] Rocky Henley MD [address] [place] [address] Ke Contreras MD [address] [place] [address] 01/25/2025 2:10 PM CDT Office Visit [facility] [place] [address] [place] [phone] Rocky Henley MD [address] [place] [id number] documented as of this encounter Procedures Procedure [...] CDT IMPRESSION: HEAD CTA: 1. Normal CTA [place]. NECK CTA: 1. Normal neck CTA. Narrative 11/18/2024 9:42 PM CDT EXAM: CTA HEAD NECK W CONTRAST LOCATION: [facility] DATE: 11/18/2024 INDICATION: headache, neck pain, [...] EXAM: CTA HEAD NECK W CONTRAST LOCATION: [facility] DATE: 11/18/2024 INDICATION: headache, neck pain, [...] Unremarkable. IMPRESSION: HEAD CTA: 1. Normal CTA [place]. NECK CTA: 1. Normal neck [...] CDT EXAM: CT HEAD W/O CONTRAST LOCATION: [facility] DATE: 11/18/2024 INDICATION: headache COMPARISON: 05/27/2024 [...] 11/18/2024 EXAM: CT HEAD W/O CONTRAST LOCATION: [facility] DATE: 11/18/2024 INDICATION: headache COMPARISON: 05/27/2024 [...] - BLOOD ORDERABLES Fi nal Result LABORATORY [facility] [address] [facility] (1st floor, no room number) [place] [address], [facility] * Extra Red Top Tube (11/18/2024 8:36 PM CDT) Hold Specimen JIC 11/18/2024 9:47 PM CDT LABORATORY Blood BLOOD SPECIMEN / Unknown Venipuncture / Unknown 11/18/2024 8:36 PM CDT 11/18/2024 8:45 PM CDT us Eron Sinha MD LAB - BLOOD ORDERABLES Fi nal Result [facility] [address] Lab (1st floor, no room number) [place] [address] * Extra Blue Top Tube (11/18/2024 8:36 PM CDT) Hold Specimen JIC 11/18/2024 9:47 PM CDT RH LABORATORY Blood BLOOD SPECIMEN / Unknown Venipuncture / Unknown 11/18/2024 8:36 PM CDT 11/18/2024 8:45 PM CDT us Eron Sinha MD LAB - BLOOD ORDERABLES Fi nal Result Performing Organization Address City/[facility]/ZIP Co de Phone Number [facility] [address] Lab (1st floor, no room number) [place] [phone] [place] [address] * (ABNORMAL) CBC with platelets and differential [...] BLOOD ORDERABLES Fi nal Result RH LABORATORY [facility] Acute Care Lab [address] Lab (1st floor, no room number) [place] [address], [facility] * Basic metabolic panel (BMP) (11/18/2024 [...] LAB - BLOOD ORDERABLES Fi nal Result [facility] [address] Lab (1st floor, no room number) [place] [address], [facility] documented in this encounter Visit Diagnoses [...] documented as of this encounter Care Teams Processes Chemical Design Engineer Relationship Specialty Start Date End Date Vane Black PA [address] [place] [address] PCP - General Family Practice 05/12/23 Sukhwinder Gerard MD [address] [phone] Gastroenterology 03/08/20 Jese Simmons DO [address] [place], [place] 8[address] Resident Neurology 05/29/24 Vasquez Abdullahi MD [facility] [address] [place] [address] 867185 Emergency Medicine 05/29/24 documented as of this encounter
--- OUTSIDE RECORDS SUMMARY | 2024-12-17 15:59 | XMS_ITS | Encounter Summary ---
Author Organization [facility] Address 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 [place] [phone] Rocky Henley MD [address] [place] [phone] documented as of this encounter Visit Diagnoses Not on filedocumented in this encounter Additional Health Concerns Assessment Noted Time PHQ-9 Depression Total Score: 26 020 3:00 PM CDT documented as of this encounter Care Teams Purchasing Supervisor Relationship Specialty Start Date End Date Vaen Black PA [address] [place] [address] PCP - General Family Practice 05/12/23 Sukhwinder Gerard MD [address] [place] [address] 711295 Gastroenterology 03/08/20 Jese Simmons DO [address] [place] [address] Resident Neurology 05/29/24 Vasquez Abdullahi MD [facility] [address] [place] [address] Emergency Medicine 05/29/24 documented as of this encounter
[2024-12-17 16:11] LABS: Basophils Absolute Auto 0.04 K/uL (0.00-0.30); Basophils Percent Auto 0.4 % (0.0-3.0); Eosinophils Absolute Auto 0.15 K/uL (0.00-0.50); Eosinophils Percent Auto 1.5 % (0.0-7.0); Hematocrit 43.2 % (33.0-51.0); Hemoglobin* 14.4 gm/dL (12.0-16.0); Immature Granulocytes Abs Auto 0.02 K/uL (0.00-0.30); Immature Granulocytes Pct Auto 0.2 %; Lymphocytes Absolute Auto 2.42 K/uL (0.90-2.90); Lymphocytes Percent Auto 23.8 % (20-44); Mean Corpuscular HGB Conc 33 gm/dL (32-36); Mean Corpuscular Hemoglobin 31 pg (26-34); Mean Corpuscular Volume 93 fL (80-100); Monocytes Percent Auto 10.7 % (0.0-11.0); Neutrophils Absolute Auto 6.44 K/uL (1.7-7.0); Neutrophils Percent Auto 63.4 % (42.0-72.0); Platelet Count* 256 K/uL (140-440); RDW Coefficient of Variation % 12.4 % (11.5-15.5); Red Blood Count 4.65 m/uL (4.00-5.20); White Blood Count* 10.16 K/uL (4.50-11.00)
[2024-12-17 16:13] LABS: Slide Review Reflex No
== END 2024-12-17 16:32 | disposition home or self-care (01) ==
PROVIDERS: Emergency Provider Family Medicine; PCP Student in an Organized Health Care Education/Training Program
DX: R05.9 Cough, unspecified (principal); R50.9 Fever, unspecified; R06.02 Shortness of breath; B97.4 Respiratory syncytial virus as the cause of diseases classified elsewhere; R63.0 Anorexia; F12.90 Cannabis use, unspecified, uncomplicated; F17.210 Nicotine dependence, cigarettes, uncomplicated
CPT/HCPCS: 36415; 71046; 85025; 99283; 99284

== ENCOUNTER 2025-07-22 14:16 | Emergency (ER) | payer MEDICAID, SELFPAY ==
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
[2025-07-22 14:19] VITALS: BP 120/77; PULSE 78; RESP 16; TEMP 37; O2SAT 98; BMI 33.4
--- OUTSIDE RECORDS SUMMARY | 2025-07-22 14:19 | XMS_ITS | Encounter Summary ---
Author Organization [facility] Address [address] [place] [address] Care Team Providers Care Sales Store Checker Name Role Phone Lucy Valverde MD Primary Care Provider [phone] Marilou Quigley MD Primary Care Provider [phone] Lola Laurent PA-C Unavailable [phone] Lucy Valverde MD Unavailable [phone] Sukhwinder Gerard MD Unavailable [phone] Sukhwinder Gerard MD Unavailable [phone] Vane Hua APRN TOXICS PROGRAM OFFICER Unavailable Unavai Lucy Gonzales MD Unavailable Lucy Valverde MD Unavailable Vane Hua APRN TOXICS PROGRAM OFFICER Unavailable Vane Ceballos Primary Care Provider [phone] Jese Simmons DO Unavailable [phone] Vasquez Abdullahi MD Unavailable [phone] Rocky Henley MD Unavailable Encounter Details Date Type Department Care Team (Late st Contact Info) Description 10/04/2007 Abstract [facility] [address] [place] [address] Lucy Valverde MD [address] [place], [place] 24[address] Social History Tobacco Use Types Packs/Day Years Used Date Smoking Tobacco: Never Assessed Comments Unknown Sex and Gender Information Value Date Recorded Sex Assigned at Not on file 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 Gender Identity Not on file Sexual Orientation Not on file documented as of this encounter Plan of Treatment Not on file documented as of this encounter Visit Diagnoses Not on filedocumented in this encounter Additional Health Concerns Infection Onset Date Last Indicated Resolved Time Rule Out COVID-19 02/27/2020 02/27/2020 02/28/2020 2:25 PM CDT documented as of this encounter Care Teams Sales Store Checker Relationship Specialty Start Date End Date Lucy Valverde MD [address] [place] [address] PCP - General 08/23/07 04/28/17 Marilou Quigley MD [place] [address] [address] [place] [address] PCP - General 04/29/17 05/11/23 Vane Black PA [address] [place] [address] PCP - General Family Practice 05/12/23 Lola Laurent PA-C [address] [place] [address] Assigned PCP 09/23/19 11/18/19 Lucy Valverde MD [address] [place] [address] Assigned PCP 11/19/19 11/16/20 Sukhwinder Gerard MD [address] [place] [address] Gastroenterology 03/08/20 Sukhwinder Gerard MD [facility] [address] [address] [place], [place] 8[address] Assigned Gastroenterology Provider 06/07/20 09/06/21 Vane Hua APRN TOXICS PROGRAM OFFICER Assigned PCP 11/17/20 02/27/21 Lucy Valverde MD [address] [place], [place] 14[address] Assigned PCP 02/28/21 07/31/22 Lucy Valverde MD [address] [place], [place] 4969[address] Assigned PCP 10/10/22 11/13/22 Vane Hua APRN TOXICS PROGRAM OFFICER Assigned PCP 11/14/22 02/19/23 Jese Simmons DO [address] [place] [address] 782295 Resident Neurology 05/29/24 Vasquez Abdullahi MD [facility] [address] [place], [place] [address] Emergency Medicine 05/29/24 Rocky Henley MD [address] [place] [address] Assigned Heart and Vascular Provider 12/06/24 documented as of this encounter
--- OUTSIDE RECORDS SUMMARY | 2025-07-22 14:19 | XMS_ITS | Encounter Summary ---
Author Organization [facility] Address On license of [facility] [place] [address] Care Team Providers Care Llama Farmer Name Role Phone Sukhwinder Gerard MD Unavailable [phone] Vane Black Primary Care Provider [phone] Jese Simmons DO Unavailable [phone] Vasquez Abdullaih MD Unavailable [phone] Rocky Henley MD Unavailable + [phone] Encounter Details Date Type Department Care Team (Late st Contact Info) Description 01/11/2025 MyC Medical Advice [facility] 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 Gender Identity Not on file Sexual Orientation Not on file documented as of this encounter Plan of Treatment Not on file documented as of this encounter Visit Diagnoses Not on filedocumented in this encounter Additional Health Concerns Assessment Noted Time PHQ-9 Depression Total Score: 26 020 3:00 PM CDT documented as of this encounter Care Teams Llama Farmer Relationship Specialty Start Date End Date Vane Black PA [address] [place] [address] PCP - General Family Practice 05/12/23 Sukhwinder Gerard MD [address] [place] [address] [id number] Gastroenterology 03/08/20 Jese Simmons DO [address] [place] [id number] Resident Neurology 05/29/24 Vasquez Abdullahi MD [facility] [address] [place] [address] Emergency Medicine 05/29/24 Rocky Henley MD [address] [place] [address] Assigned Heart and Vascular Provider 12/06/24 documented as of this encounter
--- OUTSIDE RECORDS SUMMARY | 2025-07-22 14:19 | XMS_ITS | Clinical Summary ---
Author Organization [facility] Address [address] [place] [id number] Care Team Providers Care Detective Homicide Squad Name Role Phone Vane Fish APRN, CNP Primary Care [facility] Unavailable Unavailable Allergies No known active allergies [...] 175.3 cm (5' 9) 10/20/2019 8:[address] MACHINE RUNNER Body Mass Index - - Plan of Treatment Health Maintenance Due Date Last Done Comments Hepatitis C Screening 1999 Pap Smear 1999 Anxiety Screening (BENSON-2) 2000 Depression Assessment (PHQ-2) 2000 Adult Tetanus Booster 05/21/2020 05/21/2010 COVID-19 Vaccine (2024- season) 2025 Influenza Vaccine (#1) 2025 , 07/24/2017, 07/03/2016, Additional history exists RSV Vaccines (1 - 1-dose 75+ series) 2074 Pneumococcal Vaccine Aged Out 04/25/2001, 10/26/19 01 No longer eligible based on patient's age to complete this topic HPV Vaccine Completed 12/14/2014, 06/17, 04/20/2014 Meningococcal B Vaccine Aged Out No l onger eligible based on patient's age to complete this topic Care Teams Detective Homicide Squad Relationship Specialty Start Date End Date Vane Fish APRN, GEODETIC SURVEY DIRECTOR PCP - General Nurse Practitioner 03/24/20 [facility] [facility] PCP - Primary Care Clinic Family Medicine 03/25/20
--- OUTSIDE RECORDS SUMMARY | 2025-07-22 14:19 | XMS_ITS | Clinical Summary ---
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 COUNT 4.61 4.00 - 5.20 mil/cu mm 04/25/2025 2:06 PM CDT [facility] HEMOGLOBIN 14.2 12.0 - 16.0 g/dL 04/25/2025 2:06 PM CDT [facility] HEMATOCRIT 43.5 33.0 - 51.0 % 04/25/2025 2:06 PM CDT [facility] MCV 94 80 - 100 fL 04/25/2025 2:06 PM CDT [facility] MCH 30.8 26.0 - 34.0 pg 04/25/2025 2:06 PM CDT [facility] MCHC 32.6 32.0 - 36.0 g/dL 04/25/2025 2:06 PM CDT [facility] RDW 12.7 11.5 - 15.5 % 04/25/2025 2:06 PM CDT [facility] PLATELET COUNT 367 140 - 440 thou/cu mm 04/25/2025 2:06 PM CDT [facility] MPV 8.9 6.5 - 11.0 fL 04/25/2025 2:06 PM CDT [facility] NRBC 0.0 % 04/25/2025 2:06 PM CDT [facility] ABS NRBC 0.0 thou /cu mm 04/25/2025 2:06 PM CDT [facility] Blood BLOOD SPECIMEN / Unknown Non-Lab Venipuncture / Unknown 04/25/2025 1:52 PM CDT 04/25/2025 2:02 PM CDT Annette Ya DO HEMATOLOGY Final Result [facility] [address] [place] [address], * (ABNORMAL) D-DIMER,QUANTITATIVE (04/25/2025 1:52 PM CDT) D-DIMER,QUANTI TATIVE 1.40(H) <=0.49 FEU mcg/mL 04/25/2025 2:19 PM CDT [facility] Blood BLOOD SPECIMEN / Unknown Non-Lab Venipuncture / Unknown 04/25/2025 1:52 PM CDT 04/25/2025 2:02 PM CDT Narrative [facility] - 04/25/2025 2:19 PM CDT The cut off value for exclusion of Deep Vein Thrombosis and / or Pulmonary Embolism is 0.50 FEU mcg/mL For patients greater than 50 years of age the upper limit is age dependent and was calculated with the formula: (PATIENT AGE x 0.01) FEU mcg/mL = Upper limit of normal range Candy Mikael ABERNATHY HEMATOLOGY Final Result [facility] [address] [place] [address], * (ABNORMAL) BASIC METABOLIC PANEL (04/25/2025 1:52 PM CDT) SODIUM 138 136 - 145 mmol/L 04/26/2025 6:57 AM CDT [facility] POTASSIUM 4.2 3.5 - 5.1 mmol/L 04/26/2025 6:57 AM CDT [facility] CHLORIDE 109(H) 98 - 107 mmol/L 04/26/2025 6:57 AM CDT [facility] CO2,TOTAL 20(L) 22 - 29 mmol/L 04/26/2025 6:57 AM CDT [facility] ANION GAP 9 5 - 18 04/26/2025 6:57 AM CDT [facility] GLUCOSE 81 70 - 99 mg/dL 04/26/2025 6:57 AM CDT [facility] CALCIUM 9.5 8.8 - 10.4 mg/dL 04/26/2025 6:57 AM CDT [facility] Comment: Reference ranges for this test were updated on 06/20/2024 to reflect our healthy population more accurately. Reference range changes are not retroactively applied to results, but previous results using the same methodology can be interpreted in the context of the new reference range. BUN 9 6 - 20 mg/dL 04/26/2025 6:57 AM CDT [facility] CREATININE 0.63 0.50 - 0.90 mg/dL 04/26/2025 6:57 AM CDT [facility] BUN/CREAT RATIO 14 10 - 20 6:57 AM CDT [facility] eGFR >90 >90 mL/min/1. 73m2 04/26/2025 6:57 AM CDT [facility] Comment:As of 2021, eG FR is calculated by the CKD-EPI creatinine equation without race adjustment. eGFR can be influenced by muscle mass, exercise, and diet. The reported eGFR is an estimation only and is only applicable if the renal function is stable. Blood BLOOD SPECIMEN / Unknown Non-Lab Venipuncture / Unknown 04/25/2025 1:52 PM CDT 04/26/2025 6:53 AM CDT us Annette Ya DO CHEMISTRY Final Result Performing Organization Address [facility] Co de Phone Number [facility] [address] [place] [address], [place] * HPV HIGH RISK (02/07/2025 2:45 PM CDT) TYPE 16 Negative Negative 02/09/2025 2:18 PM CDT [facility] TYPE 18 Negative Negative 02/09/2025 2:18 PM CDT [facility] OTHER HIGH RISK TYPES Negative Negative 02/09/2025 2:18 PM CDT [facility] Other (Cervical) [facility] / Unknown 02/07/2025 2:45 PM CDT 02/08/2025 9:29 AM CDT Narrative [facility] - 02/09/2025 2:18 PM CDT HPV types 16, 18, 31, 33, 35, 39, 45, 51, 52, 56, 58, 59, 66 and 68 DNA were undetectable or below the pre-set threshold. Methodology: [employer] Pages[employer] 4800 HPV Test us Fareed Eddy MD MICROBIOLOGY F inal Result Performing Organization Address [facility]/ZIP Co de Phone Number [facility] [address] [place] [address], [place] * ANTI HCV [75700.2] (10/09/2024 12:02 PM CREASING MACHINE OPERATOR) HEPATITIS C ANTIBODY NON-REACTI VE NON-REACT ANGY [facility] Comment: HCV antibody was non-reactive. There is no laboratory evidence of HCV infection. In most cases, no further action is required. However, if recent HCV exposure is suspected, a test for HCV RNA (test code 03143) is suggested. For additional information please refer to http://[employer]ality/faq/HLZ60x1 (This link is being provided for informational/ educational purposes only.) Blood BLOOD SPECIMEN / Unknown 10/09/2024 12:02 PM CREASING MACHINE OPERATOR 10/09/2024 12:02 PM CREASING MACHINE OPERATOR Vane ABERNATHY SEND OUTS Final Res ult [employer] [facility] [address] [place] [address], [facility] [address] [place] [address] * ANTI HIV 1/2 [00585.0] (10/09/2024 12:02 PM CREASING MACHINE OPERATOR) HIV AG/AB, 4TH GEN NON-REACT ANGY NON-REACT ANGY [facility] Comment: HIV-1 antigen and HIV-1/HIV-2 antibodies were [...] purpose. For additional information please refer to http://[employer]/faq/ZKX923 (This link is being provided for informational/ educational purposes only.) The performance of this assay has not been clinically validated in patients less than 2 years old. Blood BLOOD SPECIMEN / Unknown 10/09/2024 12:02 PM CREASING MACHINE OPERATOR 10/09/2024 12:02 PM CREASING MACHINE OPERATOR Vane ABERNATHY SEND OUTS Final Res ult [employer] [facility] [address] [place] [address], [facility] [address] [place] [address] from Last 3 Months or Most Recently Relevant to Health Maintenance Insurance [id number] [place] [id number] [facility] [id number] [place] [address] [id number] [employer] [place] [id number] [facility] [address] [place] [address] Advance Directives * Full Code (Latest Code Status on File) Date Activated Date Inactivated Comments 03/28/2025 6:26 AM 04/01/2025 3:09 PM Question Answer Comments Code Status Discussion: Unable to Assess Preferences, Provider to review later * Full Code Date Activated Date Inactivated Comments 02/14/2024 8:57 AM 02/14/2024 9:15 PM Question Answer Comments Code Status Discussion: Reviewed Preferences * Full Code Date Activated Date Inactivated Comments 04/14/2023 12:27 PM 04/14/2023 5:32 PM Question Answer Comments Code Status Discussion: Discussed Care Teams Machine Adjuster Leader Case Trim Relationship Specialty Start Date End Date Vane Black PA [address] [place] [address] PCP - General Physician Director Furniture 02/15/23 Carson Cardona MD [address] [facility] [address] [place] [address] Rheumatology 03/20/24
--- OUTSIDE RECORDS SUMMARY | 2025-07-22 14:19 | XMS_ITS | Clinical Summary ---
Author Organization [facility] Address [address], [place] [address] Care Team Providers Care Rnp Name Role Phone Clinician, Not Found MD Primary Care Provider Un available Source Comments You are receiving this document as you are listed as the primary care provider,follow-up provider, or the patient has been referred to you for consultation.This is in compliance with the Medicare and[facility] EHR Incentive Program,which states Providers who transition their patient to another setting of careor provider of care or refers their patient to another provider of care shouldprovide summary care record for each transition of care or referral. Kudo Allergies Active Allergy Reactions Criticality Noted Date [...] mouth every evening with a meal. Active Immunizations Immunization Administration Dates Next Due Moderna COVID-19 12+ (Spikevax) 05/08/2024,08/23 Pfizer Bivalent 12+ 06/26/2022 Social History Tobacco Use Types Packs/Day [...] Preventive Visit 2017 HepB Vaccine (1) 2018 COVID-19 Vaccine ( season) 2025 05/08/2024, 08/23/2023, 06/26/2022 Influenza Vaccine (#1) 2025 , 05/17/2023, 06/26/2022, Additional history exists DTaP/Tdap/Td Vaccine (8 - [...] 06/17, 04/20/2014 HepA Vaccine Completed 12/14/2014, 04/20/2014 Chlamydia Discontinued 10/09/2024, 09/17, 04/14/2024, Additional history exists Meningococcal B Vaccine Aged Out No l onger eligible based on patient's age to complete this topic Insurance [facility] Care Teams Rnp Relationship Specialty Start Date End Date Clinician, Not Found, [place] [address] PCP - General 10/24/24
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
--- OUTSIDE RECORDS SUMMARY | 2025-07-22 14:19 | XMS_ITS | Encounter Summary ---
Author Organization [facility] Address [address] [place] [address]. [place] [address] Care Team Providers Care Guest Experience Manager Name Role Phone Sukhwinder Gerard MD Unavailable [phone] Vane Black Primary Care Provider [phone] Jese Simmons DO Unavailable [phone] Vasquez Abdullahi MD Unavailable [phone] Rocky Henley MD Unavailable + [phone] Encounter Details Date Type Department Care Team (Late st Contact Info) Description 06/06/2024 [facility] [address], [address] [place] [address] Snow Foy MA Social History [...] on file Legal 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 Gender Identity Not on file Sexual Orientation Not on file documented as of this encounter Plan of Treatment Not on file documented as of this encounter Visit Diagnoses Not on filedocumented in this encounter Additional Health Concerns Assessment Noted Time PHQ-9 Depression Total Score: 26 02/19/ 020 3:00 PM CDT documented as of this encounter Care Teams Guest Experience Manager Relationship Specialty Start Date End Date Vane Black PA [address] [place] [address] PCP - General Family Practice 05/12/23 Sukhwinder Gerard MD [address] [address] Gastroenterology 03/08/20 Jese Simmons DO [address] [place], [place] [address] Resident Neurology 05/29/24 Vasquez Abdullahi MD [facility] [address] [place] [address] Emergency Medicine 05/29/24 Rocky Henley MD [address] [place] [address] Assigned Heart and Vascular Provider 12/06/24 documented as of this encounter
--- OUTSIDE RECORDS SUMMARY | 2025-07-22 14:20 | XMS_ITS | Clinical Summary ---
Author Organization [facility] Address [address] [place] [address] Care Team Providers Care Risk Analyst Name Role Phone Sukhwinder Gerard MD Unavailable [phone] Vane Black Primary Care Provider + [phone] Jese Simmons DO Unavailable [phone] Vasquez Abdullahi MD Unavailable [phone] Rocky Henley MD Unavailable +- [phone] Allergies Active Allergy Reactions Criticality Noted Date Comments [place] Oil 04/27/2018 Other reaction(s): GI Upset [place] Oil 04/27/2018 Other reaction(s): GI Upset Crab [...] Active fluticasone (FLONASE) 50 MCG/ACT nasal spray [place] 1 spray into both nostrils daily. 16 [...] Take 75 mg by mouth. Active rizatriptan (MAXALT-REHABILITATION ATTENDANT) 5 MG ODT DISSOLVE 1 TABLET ON THE TONGUE TWICE DAILY NEEDED FOR MIGRAINE. GIVE AT MINIMUM TWO HOURS APART. MAXIMUM DOSE 30 MG PER 24 HOURS 05/21/20 Active Suvorexant (BELSOMRA) 10 MG tablet Take 10 mg by mouth at bedtime. 02/15/20 24 Active lithium (ESKALITH CR/LITHOBID) 450 MG CR tablet Take 1 tablet by mouth 2 times daily. 10/25/19 Active pregabalin (LYRICA) 100 MG capsule TAKE 1 CAPSULE BY MOUTH TWICE DAILY FOR 15 DAYS 09/22/19 Active clonazePAM (KLONOPIN) 1 MG tablet 11/19/19 Active tiZANidine (ZANAFLEX) 4 MG tablet TAKE 1 TABLET BY MOUTH EVERY BEDTIME FOR MUSCLE TIGHTNESS 10/09/19 25 Active levonorgestrel (MIRENA) 52 MG (20 mcg/day) IUD by Intrauterine route once. Active methocarbamol (ROBAXIN) 500 MG tablet Take 1 tablet (500 mg) by mouth 4 times daily as needed for muscle spasms. 30 tablet 03/04/20 Active lidocaine (LIDODERM) 5 % patch Place 1 patch over 12 hours onto the skin every 24 hours. To prevent lidocaine toxicity, patient should be patch free for 12 hrs daily. 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 Gender Identity Not on file Sexual Orientation Not on file Last Filed Vital Signs Vital Sign Reading Time Taken Comments Blood Pressure 110/74 03/04/2025 6:53 PM CDT Pulse 62 03/04/2025 6:53 PM CDT Temperature 36.9 C (98.4 F) 03/04/2025 3:33 PM CDT Respiratory Rate 18 03/04/2025 6:53 PM CDT Oxygen Saturation 99% 03/04/2025 6:53 PM CDT Inhaled Oxygen Concentration - - Weight 89.9 kg (198 lb 3.1 oz) 03/04/2025 3:32 P M CDT Height 170.2 cm (5' 7) 11/18/2024 7:59 PM CDT Body Mass Index 31.04 11/18/2024 7:59 PM CDT Plan of Treatment Health Maintenance Due Date Last Done Comments ADVANCE CARE PLANNING 1999 ANNUAL REVIEW OF HM ORDERS 1999 PNEUMOCOCCAL VACCINE: PEDIATRICS (0 to 5 YEARS) AND AT-RISK PATIENTS (6 to 49 YEARS) (1 of 2 - PCV) 2018 04/25/2001, 10/25/2000 ZOSTER VACCINE (1 of 2) 2018 TSH W/FREE T4 REFLEX 02/12/2021 02/13/2020, 02/13/2020, 11/27/2019, Additional history exists BENSON ASSESSMENT 02/19/2021 02/20/2020, 11/14, 10/19/2019 PHQ-9 02/19/2021 02/20/2020, 11/14, 10/19/2019 YEARLY PREVENTIVE VISIT 01/24/2025 01/25/20 24, 06/03/2021, 05/28/2020 COVID-19 VACCINE ( season) 2025 05/08/2024, 08/23/2023, 06/26/2022, Additional history exists INFLUENZA VACCINE (#1) 2025 , 05/17/2023, 06/26/2022, Additional history exists PAP 02/08/2028 02/07/2025, 01/15, 01/25/2024, Additional history exists DTAP/TDAP/TD VACCINE (8 - Td or Tdap) 01/24/2034 01/25/2024, 05/21/2010, 04/29/2004, Additional history exists HEPATITIS B VACCINE Completed 04/26/2000, 04/26/2000, 1999, Additional history exists MENINGITIS VACCINE Aged Out 05/21/2010 No longer eligible based on patient's age to complete this topic HPV VACCINE Completed 12/14/2014, 06/17, 04/20/2014 HEPATITIS C SCREENING Completed 10/09/2024, 024 HIV SCREENING Completed 10/09/2024, 0810/2023, 09/03/2022 CHLAMYDIA SCREENING Discontinued 02/07/2025, 10/09/2024, 04/14/2024, Additional history exists Procedures Procedure Name Priority Date/Time Associated Diagnosis Comments TSH Routine 02/13/2020 5:40 PM CDT Major depression, single episode CHLAMYDIA TRACHOMATIS PCR Routine 01/08/2020 4:10 PM CDT Vaginal discharge Concern about STD in female without diagnosis from Last 3 Months or Most Recently Relevant to Health Maintenance Results * TSH (02/13/2020 5:40 PM CDT) TSH 1.53 0.40 - 4.00 mU/L 02/16/2020 8:14 AM CDT [facility] Blood specimen (specimen) 02/13/2020 5:40 PM CDT 02/15/2020 2:00 PM CDT us Lab Non-Fv Credentialed Provider LAB - BLOOD ORD ERABLES Final Result Performing Organization Address [facility] Co de Phone Number [facility] [address] [place] [address] * CHLAMYDIA TRACHOMATIS PCR (01/08/2020 4:10 PM CDT) Specimen Description Vagina 01/08/2020 4:12 PM CDT [facility] Chlamydia Trachomatis PCR Negative NEG^Negat gab 01/09/2020 1:59 PM CDT [facility] Comment: Negative for C. trachomatis rRNA by reimbursement liaison mediated amplification. A negative result by reimbursement liaison mediated amplification does not preclude the presence of C. trachomatis infection because results are dependent on proper and adequate collection, absence of inhibitors, and sufficient rRNA to be detected. Specimen from vagina (specimen) 01/08/2020 4:10 PM CDT 01/08/2020 4:11 PM CDT Keyana Ortiz PA-C LAB - MICRO GENERAL ORDER JOSE Final Result Performing Organization Address [facility] Co de Phone Number [facility] [address] [place], [place] [phone] [place] [address] [place] [address] from Last 3 Months or Most Recently Relevant to Health Maintenance Insurance [facility] [employer]ue Advance Directives For more information, please contact: [phone] * Full Code (Latest Code Status on File) Date Activated Date Inactivated Comments 07/23/2017 10:23 PM 07/26/2017 5:52 PM * Full Code Date Activated Date Inactivated Comments 04/29/2017 10:56 PM 05/06/2017 4:51 PM Care Teams Risk Analyst Relationship Specialty Start Date End Date Vane Black PA [address] [place] [address] PCP - General Family Practice 05/12/23 Sukhwinder Gerard MD [address] [address] Gastroenterology 03/08/20 Jese Simmons DO [address] [place], [place] [address] Resident Neurology 05/29/24 Vasquez Abdullahi MD [facility] [address] [place] [address] Emergency Medicine 05/29/24 Rocky Henley MD [address] [place] [id number] Assigned Heart and Vascular Provider 12/06/24
--- NOTE | 2025-07-22 14:49 | CRLHL7_ITS ---
For Patients: As a result of the Century Cures Act, medical imaging exams and procedure reports are released immediately into your electronic medical record. You may view this report before your referring provider. If you have questions, please contact your health care provider. Indication: Fall. Technique: Noncontrast CT images of the brain. Comparison: CT brain 12/13/2022. Findings: The ventricles and sulci are within normal limits for patient age. No mass effect or midline shift. Wade-white differentiation is maintained. No acute intracranial hemorrhage or pathologic extra-axial fluid collection. Globes are symmetric. Calvarium is intact. The visualized paranasal sinuses and mastoid air cells are clear. Impression: No acute intracranial hemorrhage or mass effect. Please note that all CT scans at this facility use dose modulation, iterative reconstruction, and/or weight-based dosing when appropriate to reduce radiation dose to as low as reasonably achievable. Dictated by Byron Calixto MD @ 07/22/2025 3:18:23 PM (Electronically Signed)
--- NOTE | 2025-07-22 14:50 | CRLHL7_ITS ---
For Patients: As a result of the Century Cures Act, medical imaging exams and procedure reports are released immediately into your electronic medical record. You may view this report before your referring provider. If you have questions, please contact your health care provider. Indication: Fall. Technique: Noncontrast CT images of the cervical spine. Comparison: CT cervical spine 10/31/2022. Findings: Slight reversal of the cervical lordosis. Mild leftward cervical curvature. Vertebral heights maintained. No acute fracture, spondylolisthesis, or traumatic subluxation. No spinal canal or neural foraminal stenosis. No concerning opacities in the lung apices. Impression: No acute fracture or traumatic subluxation. Please note that all CT scans at this facility use dose modulation, iterative reconstruction, and/or weight-based dosing when appropriate to reduce radiation dose to as low as reasonably achievable. Dictated by Byron Calixto MD @ 07/22/2025 3:20:37 PM (Electronically Signed)
--- NOTE | 2025-07-22 15:02 | ED.NECK ---
HPI - Neck Pain/Injury General Date Seen: 07/22/25 Chief Complaint: Neck Injury/Pain Stated Complaint: Fall,Neck injury Time Seen by Provider: 07/22/25 14:30 Source: patient Mode of arrival: ambulatory Limitations: no limitations History of Present Illness HPI Narrative: Patient is a 25-year-old female history of bipolar disorder, anxiety, insomnia, anorexia, POTS, recent surgery to remove the rib for thoracic outlet syndrome presenting to the emergency department for neck pain. She states 5 days ago, she slipped on the steps and slid down about 4 or 5 steps on her buttocks. She is unsure she hit her head or not. He states since then she has been getting gradually worse he neck pain more has pain with moving her head. Also states she has intermittent dizziness. States it will feel like she is on a boat. Has also had nausea which she took Zofran at home for which helped. Denies. Chest pain or shortness of breath. Denies abdominal pain, fevers, chills. No other concerns noted at this time. Related Data Home Medications ?Medication ?Instructions ?Recorded ?Confirmed lithium carbonate 300 mg capsule 300 mg PO HS 05/26/22 07/22/25 metformin 750 mg tablet,extended 750 mg PO QAM 04/15/24 07/22/25 release 24 hr pregabalin 25 mg capsule 150 mg PO 3XD 04/15/24 07/22/25 epinephrine 0.3 mg/0.3 mL 0.3 ml IM ONCE PRN anaphylaxis 08/19/24 07/22/25 injection, auto-injector norethindrone acetate 1 mg-ethinyl 1 tab PO DAILY 08/19/24 07/22/25 estradiol 20 mcg tablet ubrogepant 100 mg tablet (Ubrelvy) 100 mg PO .Q12 PRN 08/19/24 07/22/25 upadacitinib 15 mg tablet,extended 15 mg PO DAILY 12/17/24 07/22/25 release 24 hr (Rinvoq) budesonide-formoterol HFA 80 inhalation 07/22/25 mcg-4.5 mcg/actuation aerosol inhaler (Symbicort) lithium carbonate 450 mg 450 mg PO BID 07/22/25 07/22/25 tablet,extended release Allergies Allergy/AdvReac Type Severity Reaction Status Date / Time mold Allergy Severe Anaphylaxis Verified 07/22/25 14:32 trazodone Allergy Intermediate Verified 07/22/25 14:32 sipnoi Allergy Severe Anaphylaxis Uncoded 05/10/25 08:50 Review of Systems Status of ROS: Reports: 10 or more systems reviewed and unremarkable except as noted in History and below [facility] Medical History Endometriosis ?N80.9 - Endometriosis, unspecified (ICD-10) PCOS (polycystic ovarian syndrome) ?E28.2 - Polycystic ovarian syndrome (ICD-10) PTSD (post-traumatic stress disorder) ?F43.10 - Post-traumatic stress disorder, unspecified (ICD-10) POTS (postural orthostatic tachycardia syndrome) ?G90.A - Postural orthostatic tachycardia syndrome [POTS] (ICD-10) Migraine ?G43.909 - Migraine, unspecified, not intractable, without status migrainosus (ICD-10) Asthma ?J45.909 - Unspecified asthma, uncomplicated (ICD-10) Allergic reaction to allergy skin test ?T78.49XA - Other allergy, initial encounter (ICD-10) Surgical History History of tonsillectomy (2009) ?Z90.89 - Acquired absence of other organs (ICD-10) History of spinal fusion for scoliosis (2011) ?Z98.1 - Arthrodesis status (ICD-10) ?Z87.39 - Personal history of other diseases of the musculoskeletal system and connective tissue (ICD-10) Family History Mother Thyroid disease Father Asthma Depression Sister Asthma Autism spectrum disorder Maternal Grandfather Depression High cholesterol High blood pressure Maternal Grandmother Depression High cholesterol High blood pressure Other Coronary artery disease Social History Smoking Status: Former smoker Do you use any of these nicotine containing products: None and Vaping Products Second hand tobacco smoke exposure: No How often do you have a drink containing alcohol: monthly or less How often do you have six or more drinks on one occasion: Less than monthly AUDIT-C Alcohol total score: 2 Non-prescribed substance use: denies use service: No Exam Narrative: Exam Narrative: Const: Well-nourished, Well-developed, in mild distress Eyes: PERRL, no conjunctival injection, and symmetrical lids HENT: Atraumatic external nose and ears. Moist mucous membranes. Neck: Symmetric, trachea midline, No thyromegaly. CVS: RRR, No murmurs or gallops. Peripheral pulses 2+ and equal in all extremities RESP: Unlabored respiratory effort. Clear to auscultation bilaterally. GI: Nontender/Nondistended, No rebound or guarding. MSK:Extremities w/o deformity, Normal Active ROM, diffuse tenderness throughout the neck including midline neck throughout the midline neck Skin: Warm, Dry. No rashes or lesions. Neuro: Normal Muscle tone, Cranial nerves 2-12 grossly intact, normal [id number], normal [id number], normal gait, normal strength 5/5 upper lower extremities bilaterally, normal sensation upper and lower extremities bilaterally, normal rapid alternating movements. Psych: Awake, Alert, & Oriented x3. Appropriate mood and affect. Const: Vital Signs, click to edit/add: Vital Signs - 24 hr 07/22/25 14:19 Temperature 98.6 F Pulse Rate [Pulse Oximeter] 78 Respiratory Rate 16 Blood Pressure [Ri ght Upper Arm] 120/77 Pulse Oximetry 98 Oxygen Delivery Me thod Room Air Course Vital Signs Vital signs: Initial Vital Signs Temperature 98.6 F 07/22/25 14:19 Temperature Source Temporal Artery Scan 07/22/25 14:19 Pulse Rate 78 07/22/25 14:19 Respiratory Rate 16 07/22/25 14:19 Blood Pressure 120/77 07/22/25 14:19 Blood Pressure Mean 91 07/22/25 14:19 Blood Pressure Position Sitting 07/22/25 14:19 Pulse Oximetry 98 07/22/25 14:19 Oxygen Delivery Method Room Air 07/22/25 14:19 Vital Signs Temperature 98.6 F 07/22/25 14:19 Pulse Rate 78 07/22/25 14:19 Respiratory Rate 16 07/22/25 14:19 Blood Pressure 120/77 07/22/25 14:19 Pulse Oximetry 98 07/22/25 14:19 Oxygen Delivery Method Room Air 07/22/25 14:19 Temperature 98.6 F 07/22/25 14:19 Pulse Rate 78 07/22/25 14:19 Respiratory Rate 16 07/22/25 14:19 Blood Pressure 120/77 07/22/25 14:19 Pulse Oximetry 98 07/22/25 14:19 Oxygen Delivery Method Room Air 07/22/25 14:19 MDM - Neck Pain/Injury MDM Narrative Medical decision making narrative: Patient is a 25-year-old female presenting for neck and head pain. Seems rather unlikely she has any fractures or intracranial bleeding at this time if further will do CT scan of the head and cervical spine. She is neurovascular intact. CT scans interpreted by myself the radiologist showed no acute concerning abnormalities. Symptoms are musculoskeletal in nature. From a whiplash injury from the fall. Her dizziness is probably from a concussion. Further imaging this far out from the injury is unlikely to be of any benefit. She is safe for discharge. She will follow up the primary care provider. She is agreeable to this plan. Imaging Data CT scan head: Attestation: I have reviewed the pertinent imaging results. Radiologist's impression: No acute intracranial hemorrhage or mass effect. Please note that all CT scans at this facility use dose modulation, iterative reconstruction, and/or weight-based dosing when appropriate to reduce radiation dose to as low as reasonably achievable. Dictated by Byron Calixto MD @ 07/22/2025 3:18:[address] scan cervical spine: Attestation: I have reviewed the pertinent imaging results. Radiologist's impression: No acute fracture or traumatic subluxation. Please note that all CT scans at this facility use dose modulation, iterative reconstruction, and/or weight-based dosing when appropriate to reduce radiation dose to as low as reasonably achievable. Dictated by Byron Calixto MD @ 07/22/2025 3:20:37 PM Discharge Plan Discharge Clinical Impression: Whiplash injury to neck Qualifiers: Encounter type: initial encounter Qualified Code(s): S13.4XXA - Sprain of ligaments of cervical spine, initial encounter Patient Disposition: Home, Self-Care Condition: Stable Instructions: Cervical Sprain (ED) Additional Instructions: Take [id number] pain medication as needed. He can use ice packs to help with the pain also. Recommend following up with her primary care provider. Return to emergency department for new or worsening symptoms. Prescriptions: No Action metformin 750 mg tablet extended release 24 hr 750 mg PO QAM pregabalin 25 mg capsule 150 mg PO 3XD norethindrone ac-eth estradiol 1-20 mg-mcg tablet 1 tab PO DAILY epinephrine 0.3 mg/0.3 mL auto-injector 0.3 ml IM ONCE PRN (Reason: anaphylaxis) Ubrelvy 100 mg tablet 100 mg PO .Q12 PRN Rinvoq 15 mg tablet extended release 24 hr 15 mg PO DAILY lithium carbonate 450 mg tablet extended release 450 mg PO BID budesonide-formoterol [Symbicort] 80-4.5 mcg/actuation HFA aerosol inhaler inhalation lithium carbonate 300 mg capsule 300 mg PO HS Patient Comments: TAKE 1 CAPSULE BY MOUTH AT BEDTIME FOR 3 DAYS. THEN INCREASE TO 2 CAPSULES BY MOUTH AT BEDTIME Follow Up/Referrals: Vane Black PA-C [Primary Care Provider, Family Practice] Stand Alone Forms: [employer] Info Instructions
== END 2025-07-22 15:59 | disposition home or self-care (01) ==
PROVIDERS: Emergency Provider Student in an Organized Health Care Education/Training Program; PCP Student in an Organized Health Care Education/Training Program
DX: S13.4XXA Sprain of ligaments of cervical spine, initial encounter (principal); W10.9XXA Fall (on) (from) unspecified stairs and steps, initial encounter
CPT/HCPCS: 70450; 72125; 99284